=== PATIENT | male | born 1950 | race Caucasian/White ===

== ENCOUNTER 2017-07-08 08:00 | Outpatient (RCR) | payer OTHER, SELFPAY ==
--- NOTE | 2017-06-22 12:59 | PCM.PR.TP ---
General Information - General Information Admitting Diagnosis: Severe COPD. Gold Classification:: GOLD 4: Very Severe - PFT FEV1:: 0.54 FVC:: 1.60 FEV1/FVC%:: 34 - Education/Goals Barriers to Learning: None, Vision Impairment Individual Counseling: Initial Assessment: Dyspnea control techniques at rest, activity, and ADLs, ADL management and pacing, Panic & depression management, Nutrition & weight management, Home exercise plan & guidelines Patient Goals: Breathe better: Initial Assessment, Increase endurance/stamina: Initial Assessment, Return to recreation/hobby: Initial Assessment, Control panic/anxiety: Initial Assessment, Improve diet and nutrition: Initial Assessment, Symptom management: Initial Assessment, Take medications correctly: Initial Assessment, Improve weight: Initial Assessment Exercise - Initial Assessment - Visit Date of Eval: 06/22/17 - Problem/Goals Problems: Deconditioning, No regular exercise, Knowledge deficit exercise guidelines, Knowledge deficit exercise safety - Exercise Prescription Mode:: Treadmill, Rower, Airdyne, NuStep, Arm Ergometer Frequency (x/week): 3 Duration:: 30 MET LEVEL:: 2 HR (bpm):: 114 - 108-114 Exercise Progression: as tolerated per protocol. - Plan Plan and Plan to Review:: Benefits of exercise, Core components of exercise, How to measure dyspnea level, How to monitor dyspnea level, Exercise intensity, Exercise safety guideline, Home exercise guidelines, [place]: 3-4/-13 Disease Management - Initial - Problems/Goals-Hypoxemia Hypoxemia Problems:: Hypoxemia Hypoxemia Goals:: Hypoxemia managed, Port system, Using O2 as Rx's safely - Problems/Goals-Medications Medication Goals: Adherence to prescribed medications, Correct technique/timing & care of MDI, DPI, nebulizer, and spacer. - Problems/Goals-Bronchial Hygiene Bronchial Hygiene Problems:: Ineffective secretion clearance, Respiratory infection Prevention/Management Bronchial Hygiene Goals:: Pt demonstrates effective cough, effective secretion clearance., Pt describes signs and symptoms of infection. - Initial Assessment SpO2:: 96 DME:: [facility] [place] Does pt report taking home meds as prescribed?: Yes Medications: Yes MDI, No Spacer Patient Reports:: Prod cough with infection Psychosocial - Initial Assess - Problems/Goals Problems: Impaired Q.O.L. Psychosocial Goals: Improved Q.O.L. - Psychosocial Test Depression:: Anxiety, Impaired QOL Referred to MD for counseling:: No - Plan Reviewed screening results: No Instructions given regarding:: Benefits of exercise, Relaxation techniques, Training in coping strategies Tobacco - Initial Assessment - Program Goals Tobacco Program Goals: Complete smoking cessation. Attend education classes. Improve Knowledge Test score - Stage of Change Stages of Change:: Action - Learning Barriers Learning Barriers: Vision, Ready to Learn - Family Support Do you have family support?: Yes - Tobacco Use Tobacco Use: Non-smoker How long ago did you quit using tobacco products?: Greater than or equal to 6 months ago Do you use smokeless tobacco?: No - Intervention Smoking Cessation Referral:: No Individual Education/Counseling:: No Education Schedule Given:: Yes - Education Gave Education Materials For:: Tobacco Triggers, Pulmonary Disease, Risk Factors, Breathing Techniques, Medical Compliance, Pulmonary A&P, Exacerbation Signs & Symptoms, Stress & Relaxation Nutrition/Wt Mgmt - Initial - Problems/Goals Problems: Overweight Goals: BMI 21-25, Wt Loss 1-2 lbs per week - Weight Management Knowledge Deficit Management of:: Overweight, Weight control w/Prednisone Admit Height:: 5 ft 9 in Admit Weight:: 100.891 kg Admit BMI:: 32.8 - Diabetes Diabetes:: No Insulin: No Do you monitor your blood sugar at home?: No - Intervention Referral to dietitian:: Yes - Patient could benefit from a Structured Weight Loss program. Referral to Diabetic Clinic:: No Will attend diet classes:: Yes - Plan Nutrition Plan: Yes Nutrition education class:, Yes Weight control education class:, Yes Education re: Need for ongoing weight monitoring, Yes Physical activity log: Patient Health Questionnaire Initial Assessment 1. Little interest or pleasure in doing things: Several days 2. Feeling down, depressed, or hopeless: Several days 3. Trouble falling or staying asleep, or sleeping too much: More than half the days 4. Feeling tired or having little energy: More than half the days 5. Poor appetite or overeating: More than half the days 6. Feeling bad about yourself -- or that you are a failure or have let yourself or your family down: Several days 7. Trouble concentrating on things, such as reading the newspaper or watching television: Several days 8. Moving or speaking so slowly that other people could have noticed. Or the opposite - being so fidgety or restless that you have been moving around a lot more than usual: Not at all 9. Thoughts that you would be better off , or of hurting yourself in some way: Not at all How difficult have these problems made it for you to do your work, take care of things at home, or get along with other people?: Very difficult Total Score: 10 COPD Knowledge Test Initial COPD is a lung disease that:: Makes it hard to breathe & gets worse over time In the [place] the term COPD describes 2 main lung conditions:: Emphysema & chronic bronchitis The most common lung irritant that causes COPD is:: Cigarette smoke Common signs and symptoms of COPD include:: An ongoing cough/cough that produces a large amount of mucus, & SOB If you have COPD, what steps can you take?: All of the above Swelling of the ankles is common in COPD:: True Fatigue [tiredness] is common in COPD:: True Wheezing is common in COPD:: True Crushing chest pain is common in COPD:: False Rapid weight loss is common in COPD:: False Breathlessness is a normal response to exercise: False Exercise should be avoided if it makes you short of breath: False All bronchodilators act within 10 minutes: True A spacer device increases the medication to the lungs: False Annual flu vaccine is recommended for pts w/lung disease: True COPD Knowledge Test Total Score:: 11 COPD Assessment Test [CAT] - Questions Never cough = 0, Cough all the time = 5: 2 No phlegm = 0, Chest full of phlegm = 5: 4 No chest tightness = 0, Chest very tight = 5: 3 No breathless w/exertion = 0, Very breathless w/exertion = 5: 5 No limitations w/activity = 0, Very limited w/activity = 5: 5 Confident leaving home = 0, Not at all confident = 5: 3 Sleep soundly = 0, Don't sleep soundly = 5: 1 Lots of energy = 0, No energy at all = 5: 4 Total CAT score:: 27 Self-Efficacy Initial Assessment We would like to know how confident you are in doing certain activities. Please select your confidence level for:: Select your confidence level for the following using the scale 1-10 where 1 is not at all confident and 10 is totally confident. Your score is the average of all 6 responses. Fatigue: How confident are you that you can keep the fatigue caused by your disease from interfering with the things you want to do? Select Number: 4 Physical Discomfort or Pain: How confident are you that you can keep the physical discomfort or pain of your disease from interfering with the things you want to do? Select Number: 2 Emotional Distress: How confident are you that you can keep the emotional distress caused by your disease from interfering with the things you want to do? Select Number: 5 Other Symptoms or Health Problems: How confident are you that you can keep other symptoms or health problems from interfering with the things you want to do? Select Number: 4 Different Tasks and Activities: How confident are you that you can do the different tasks and activities needed to manage your health condition so as to reduce your need to see a doctor? Select Number: 4 Medication: How confident are you that you can do things other than just taking medication to reduce how much your illness affects your everyday life? Select Number: 3 Total Score:: 3 Nutrition Survey - Nutrition Survey Instructions Scoring Instructions: Scoring is as follows: Yes = 1 points. No = 0 point. Patient score that is >/=12 is considered to be at potential nutritional risk and could benefit from a referral to a registered dietitian. - Nutrition Survey Initial Have you lost >10 lbs over the past 2 months without trying?: No Are you following a special diet at home for diabetes, low fat, or low salt?: No Are you interested in meeting with a dietitian for help understanding your diet?: Yes Do you eat less than 3 meals a day?: Yes Do you eat fatty meats (hicks, sausage, ribs, etc), fried foods, desserts, large amounts of salad dressings, margarine, butter, or cheese most days?: Yes Do you have food allergies? [Enter types in comment field]: No Do you eat in restaurants more than 3 times a week?: No Do you season food with salt, seasoning salt, or garlic salt?: No Do you used canned, boxed, frozen meals, or soups, seasoning packets?: No Total Score:: 3
--- NOTE | 2017-06-22 13:00 | PCM.PR.HP ---
History of Present Illness Arrival date:: 06/22/17 Arrival time:: 13:05 Date of Evaluation: 06/22/17 Referring Physician: Dr. Chandan Carson Primary Diagnosis: COPD Stage IV very severe History of Present Illness: This is a 66 year old male patient who presents to pulmonary rehab today under the care of Dr. Carson. The patient is being treated for his OS, chronic hypoxic respiratory failure and very severe COPD. mMRC Breathless Scale: When is the patient short of breath? Y/N Grade: Description of Breathlessness: 0 I only get breathless with strenuous exercise. 1 I get short of breath when hurrying on level ground or walking up a slight hill. 2 On level ground, I walk slower than people of the same age because of breathless, or have to stop for breath when walking at my own pace. 3 I stop for breath after walking 100 yards or after a few minutes on level ground. 4 I am too breathless to leave the house or I am breathless when dressing. Respiratory Problems: Yes: Wheezing, Able to Speak in Full Sentences, Dyspnea with Activity - Secretions Normal Color:: pale yellow Thick:: Yes Amount/Day:: 1 TSP Cough:: Yes AM: Yes Sleep Disorder Evaluation: EPWORTH SLEEPINESS SCALE 0 = NO chance of dozing 2 = MODERATE chance of dozing 1 = SLIGHT chance of dozing 3 = HIGH chance of dozing : SITUATION: CHANCE OF DOZING: Sitting and Reading Watching TV Sitting inactive in a public place (i.e. Movies) As a passenger in a car for an hour without a break Lying down to rest in the afternoon when permitted Sitting and talking to someone Sitting quietly after lunch without alcohol In a car, while stopped for a few minutes in traffic Total Total Equals: 1-6 = Adequate Sleep 7-8 = Average > 9 = Sleep Study/Consult Indicated Past Medical History Past Medical History: Arthitis - spinal stenosis, Heart Disease - CAD, Hypoxia - chronic hypoxic respiratory failure with MYLES score of 4., Pulmonary Hypertension, Sleep Apnea - Obstructive sleep apnea, - - Acute Bronchitis, dyspnea on exertion, hypersomnia, nonrheumatic tricuspid insufficiency, pulmonary hypertension, spinal stenosis, sprain and strain of lumbosacral joint/ligament, tobacco abuse Psychiatric History: no pertinent psych hx Surgical History: rotator cuff repair, - - back surgery to repair crushed disc in lower lumar region Family History: Heart Disease: Paternal - father heart disease age 77 Additional Family History: Mother age 92 still alive. - Social History Marital Status: Assistive Devices:: none Interest/Hobbies:: fishing, about anything outdoors, gardening, mowing etc. Transportation Needs:: own Alcohol:: No Drugs:: No Employment:: Retired Smoking Status: Former smoker Quit Smoking Since: 2015 Packs per day: 2 Years Smoked: 25 - Living Arrangement Patient lives with other person(s) in the home:: AROUND THE CLOCK - Current/ Previous Services [facility] Home Health:: No Other Home Health:: No [facility] Cardiac Rehab:: No Life (Palliative) Care Services:: No Tobacco Use & Smoking Cessation:: No Pulmonary Rehab:: No Social History - Smoking History Smoking Status: Former smoker Years Smokin Packs Smoked per Day: 2 Hx Smoking Cessation Date: 2015 Hx Tobacco Use: No Hx Smoking Exposure: No - Alcohol Use Alcohol Usage: No - Substance Abuse Hx Substance Use: No - Occupation Occupation (List type of work in comments):: Retired - Hobbies, Recreation, Social Activities Hobbies: Farm, Other Recreational Activities: I am able to engage in a few activities Medications & Vaccination Info Home Medications: Ambulatory Orders Albuterol Inhaler [Ventolin Hfa] 2 puff INHALATION Q6H PRN PRN 05/16/16 Aspirin [Aspirin, Baby] 81 mg PO DAILY@0800 tab.chew 05/24/16 Ipratropium/Albuterol Sulfate [Duoneb] 3 ml INHALATION Q6H PRN PRN 09/05/16 albuterol sulfate 2.5 mg/3 mL (0.083 %) solution for nebulization 2.5 mg INHALATION BID ml 05/14/17 azithromycin 250 mg tablet 250 mg PO QDAY #6 tab 05/14/17 furosemide 40 mg tablet 40 mg PO ONCE #30 tab 05/14/17 glycopyrrolate 9 mcg-formoterol 4.8 mcg HFA aerosol inhaler 2 puff INHALATION BID 05/14/17 guaifenesin ER 600 mg tablet, extended release 12 hr 600 mg PO Q12H PRN 05/14/17 mometasone 220 mcg (120 doses) breath activated powder inhaler 2 inh INHALATION BID ea 05/14/17 prednisone 10 mg tablet 10 mg PO QDAY #30 tab 05/14/17 tamsulosin 0.4 mg capsule 0.4 mg PO QDAY 05/14/17 Do you use a peak flow meter at home?: No Do you use a spacer device with your inhalers?: No Number of hospital visits in the last year?: 0 Number of emergency room visits in the last year?: 0 Do you see your physician on a regular schedule?: Yes How often?: 4 months Has adequate access & meets healthcare needs?: Yes - Drug Regimen Review Indication of potential clinical significant med issues (drug reactions, ineffective therapy, side effects, interactions, duplicate therapy, omissions, dose errors, or non-compliance)?: No problems found during review Was a physician or the physican designee contacted within one calendar day to resolve clinically significant medication issues, including reconcilitation?: No Review of Systems Constitutional: Denies: Chills, Fever, Weight Change HEENT: Reports: Sinus Drainage, Visual Changes - wears glasses daily for vision, lately eyes have been itchy.. Denies: Head Aches, Sinus Congestion Cardiovascular: Denies: Chest Pain, Palpitations Respiratory: Reports: Shortness of breath at rest, Shortness of breath upon exertion, Wheezing. 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: Yes Living Will: Yes Advance Directives Information Provided: No Advance Directives on File: No DNR Order?:: No Coping/Social Support/Other - Abuse and Neglect Do you feel safe in your surroundings?:: YES Are there sign/symptoms of abuse?: No Has anyone physically or mentally abused you?: No Has anyone threatened to harm you in any way?: No Been asked to sign a document that you don't understand?: No - Exacerbation History Number of Exacerbations in a year:: 1 - last hsopitalization May 2016 due to acute hypoxic respiratory failure Recent exposure to illness?: No Known carrier?: No Antibiotic Taken:: Yes I know I have an infection when:: Yes. - Nutrition Risk Factor Are you on a special diet?: No Diff. chewing/swallowing:: No Have you had a change in your weight?: Yes Amount gained:: 50 in 13 mo. Physical Exam - Vital Signs Temperature: 98.7 F Pulse Rate: 79 Respiratory Rate: 18 Pulse Ox at rest: 96 Blood Pressure: 132/76 Nailbeds:: PINK Height: 5 ft 9 in Weight:: 100.698 kg Weight Source: Standing Scale Body Mass Index (BMI): 32.8 - Physical Exam General: Alert, Oriented x3, Cooperative Neck: Supple, No JVD, Negative Carotid Bruits, Negative Hepatojugular Reflux Lungs: Clear to auscultation, Normal air movement Cardiovascular: Regular rate, Regular Rhythm, No murmurs Extremities: No clubbing, No cyanosis, No edema, Capillary Refill Less than 3 Seconds Musculoskeletal: No Tenderness to Palpation of Joints or Extremities Psych/Mental Status: Normal Affect, Appropriate - Pain Is Patient Pain Free?: Yes Pain Location: none - Hearing/Speech/Vision/Spiritual Cultural/Roman Catholic Needs that may affect Treatment Plan: No Do you have any Spiritual/Emotional needs of which our Health Service Worker Ministry could be of assistance?: No Health Service Worker to contact Place of Gnosticism?: No Primary Language: Luxembourger Preferred Language: Luxembour[place] Right Hearing Abillity: Normal Visual Difficulty: Near Sighted, Far Sighted Comments: wears glasses for corrective vision. - Motivation to Participate On a scale of 1 to 10, how prepared are you to commit to attending pulmonary rehabilitation?: 10 What do you see as barriers to successfully being able to complete the program?: inability to achieve goals What do you see as the benefits of succesfully completing the program? In other words, what do you hope to get out of participating in the program?: increased strength and endurance Are there issues you are dealing with that will interfere with completing the program?: none Do you have a spouse or signficant other, family or friends who will help support you to complete the program?: excellent Diagnostic Data Review - Lab Results Hematology/Chemistry: none available - 6 Minute Walk Test 6 Minute Walk Test: See patient's EHR - Pulmonary Function Test FEV1:: 17 - 27% PREDICTED FVC:: 37 - 68% PREDICTED FEV1/FVC%:: 30 Gold Classification: Gold class IV(very severe COPD)with FEV1/FVC <70, FEV1 <30% predicted Functioning ADL/IADL - Functional Capacity ADL/IADL GROOMING: Current ability to tend safely to personal hygiene needs (i.e., washing face/hands, hair care, shaving or make up, teeth or denture care, fingernail care).: Able to groom self unaided, w/ or w/o the use of assistive devices. Current ABILITY TO DRESS UPPER BODY safely (with or w/out dressing aids) including undergarments, pullovers, front-opening shirts & blouses, managing zippers, buttons, & snaps:: Gets clothes out, puts on, and removes from upper body w/o assist. Current ABILITY TO DRESS LOWER BODY safely (with or w/out dressing aids) including undergarments, slacks, socks or nylons, shoes:: Able to obtain, put on, & remove clothing and shoes w/out assistance. Bathing: Current ability to wash entire body safely. EXCLUDES grooming (washing face, washing hands and shampooing hair): Bathes self in shower/tub independently, incl getting in & out TOILET TRANSFERRING: Current ability to get to & from the toilet/BSC safely and transfer on & off toilet/commode.: Gets to & from toilet, transfers independently w/ or w/o a device. TOILETING HYGIENE: Current ability to maintain perineal hygiene safely, adjust clothes and/or incontinence pads before & after using toilet, commode, bedpan, urinal. If managing ostomy, includes cleaning: Manages toileting hygiene & clothing management w/out assist TRANSFERRING: Current ability to move safely from bed to chair, or ability to turn and position self in bed if patient is bedfast.: Able to independently transfer. AMBULATION/LOCOMOTION: Current ability to walk safely, once in a standing position, or use wheelchair, once in a seated position, on a variety of surfaces.: Able to IND walk on even/uneven surface&use stairs with or w/o railing FEEDING or EATING: Current ability to feed self meals and snacks safely. NOTE: This refers only to the process of eating, chewing and swallowing, not preparing the food to be eaten.: Able to independently fee ABILITY TO PLAN AND PREPARE MEALS: (e.g., cereal, sandwich) or reheat delivered meals safely.: IND prepare light meals/reheat delvrd meals/Or can but hasn't done so. ABILITY TO USE TELEPHONE: Current ability to answer the phone safely, including dialing numbers, and effectively using the telephone to communicate.: Able to dial numbers and answer calls appropriately and as desired. - Pt Functioning Prior to Problem Self-Care (e.g.,grooming, dressing, & bathing): INDEPENDENT Ambulation: INDEPENDENT Transfer: INDEPENDENT Household tasks (e.g., light meal prep, laundry, shopping): INDEPENDENT
--- NOTE | 2017-06-22 13:10 | PR.HP_ITS ---
History of Present Illness Arrival date:: 06/22/17 Arrival time:: 13:05 Date of Evaluation: 06/22/17 Referring Physician: Dr. Chandan Carson Primary Diagnosis: COPD Stage IV very severe History of Present Illness: This is a 66 year old male patient who presents to pulmonary rehab today under the care of Dr. Carson. The patient is being treated for his OS, chronic hypoxic respiratory failure and very severe COPD. mMRC Breathless Scale: When is the patient short of breath? Y/N Grade: Description of Breathlessness: 0 I only get breathless with strenuous exercise. 1 I get short of breath when hurrying on level ground or walking up a slight hill. 2 On level ground, I walk slower than people of the same age because of breathless, or have to stop for breath when walking at my own pace. 3 I stop for breath after walking 100 yards or after a few minutes on level ground. 4 I am too breathless to leave the house or I am breathless when dressing. Respiratory Problems: Yes: Wheezing, Able to Speak in Full Sentences, Dyspnea with Activity - Secretions Normal Color:: pale yellow Thick:: Yes Amount/Day:: 1 TSP Cough:: Yes AM: Yes Sleep Disorder Evaluation: EPWORTH SLEEPINESS SCALE 0 = NO chance of dozing 2 = MODERATE chance of dozing 1 = SLIGHT chance of dozing 3 = HIGH chance of dozing : SITUATION: CHANCE OF DOZING: Sitting and Reading Watching TV Sitting inactive in a public place (i.e. Movies) As a passenger in a car for an hour without a break Lying down to rest in the afternoon when permitted Sitting and talking to someone Sitting quietly after lunch without alcohol In a car, while stopped for a few minutes in traffic Total Total Equals: 1-6 = Adequate Sleep 7-8 = Average > 9 = Sleep Study/Consult Indicated Past Medical History Past Medical History: Arthitis - spinal stenosis, Heart Disease - CAD, Hypoxia - chronic hypoxic respiratory failure with MYLES score of 4., Pulmonary Hypertension, Sleep Apnea - Obstructive sleep apnea, - - Acute Bronchitis, dyspnea on exertion, hypersomnia, nonrheumatic tricuspid insufficiency, pulmonary hypertension, spinal stenosis, sprain and strain of lumbosacral joint/ ligament, tobacco abuse Psychiatric History: no pertinent psych hx Surgical History: rotator cuff repair, - - back surgery to repair crushed disc in lower lumar region Family History: Heart Disease: Paternal - father heart disease age 77 Additional Family History: Mother age 92 still alive. - Social History Marital Status: Assistive Devices:: none Interest/Hobbies:: fishing, about anything outdoors, gardening, mowing etc. Transportation Needs:: own Alcohol:: No Drugs:: No Employment:: Retired Smoking Status: Former smoker Quit Smoking Since: 2015 Packs per day: 2 Years Smoked: 25 - Living Arrangement Patient lives with other person(s) in the home:: AROUND THE CLOCK - Current/ Previous Services [facility] Health:: No Other Home Health:: No [facility] Cardiac Rehab:: No Life (Palliative) Care Services:: No Tobacco Use & Smoking Cessation:: No Pulmonary Rehab:: No Social History - Smoking History Smoking Status: Former smoker Years Smokin Packs Smoked per Day: 2 Hx Smoking Cessation Date: 2015 Hx Tobacco Use: No Hx Smoking Exposure: No - Alcohol Use Alcohol Usage: No - Substance Abuse Hx Substance Use: No - Occupation Occupation (List type of work in comments):: Retired - Hobbies, Recreation, Social Activities Hobbies: Farm, Other Recreational Activities: I am able to engage in a few activities Medications & Vaccination Info Home Medications: Ambulatory Orders Albuterol Inhaler [Ventolin Hfa] 2 puff INHALATION Q6H PRN PRN 05/16/16 Aspirin [Aspirin, Baby] 81 mg PO DAILY@0800 tab.chew 05/24/16 Ipratropium/Albuterol Sulfate [Duoneb] 3 ml INHALATION Q6H PRN PRN 09/05/16 albuterol sulfate 2.5 mg/3 mL (0.083 %) solution for nebulization 2.5 mg INHALATION BID ml 05/14/17 azithromycin 250 mg tablet 250 mg PO QDAY #6 tab 05/14/17 furosemide 40 mg tablet 40 mg PO ONCE #30 tab 05/14/17 glycopyrrolate 9 mcg-formoterol 4.8 mcg HFA aerosol inhaler 2 puff INHALATION BID 05/14/17 guaifenesin ER 600 mg tablet, extended release 12 hr 600 mg PO Q12H PRN mometasone 220 mcg (120 doses) breath activated powder inhaler 2 inh INHALATION BID ea 05/14/17 prednisone 10 mg tablet 10 mg PO QDAY #30 tab 05/14/17 tamsulosin 0.4 mg capsule 0.4 mg PO QDAY 05/14/17 Do you use a peak flow meter at home?: No Do you use a spacer device with your inhalers?: No Number of hospital visits in the last year?: 0 Number of emergency room visits in the last year?: 0 Do you see your physician on a regular schedule?: Yes How often?: 4 months Has adequate access & meets healthcare needs?: Yes - Drug Regimen Review Indication of potential clinical significant med issues (drug reactions, ineffective therapy, side effects, interactions, duplicate therapy, omissions, dose errors, or non-compliance)?: No problems found during review Was a physician or the physican designee contacted within one calendar day to resolve clinically significant medication issues, including reconcilitation?: No Review of Systems Constitutional: Denies: Chills, Fever, Weight Change HEENT: Reports: Sinus Drainage, Visual Changes - wears glasses daily for vision , lately eyes have been itchy.. Denies: Head Aches, Sinus Congestion Cardiovascular: Denies: Chest Pain, Palpitations Respiratory: Reports: Shortness of breath at rest, Shortness of breath upon exertion, Wheezing. 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 Farm Equipment Engineer: Yes Living Will: Yes Advance Directives Information Provided: No Advance Directives on File: No DNR Order?:: No Coping/Social Support/Other - Abuse and Neglect Do you feel safe in your surroundings?:: YES Are there sign/symptoms of abuse?: No Has anyone physically or mentally abused you?: No Has anyone threatened to harm you in any way?: No Been asked to sign a document that you don't understand?: No - Exacerbation History Number of Exacerbations in a year:: 1 - last hsopitalization May 2016 due to acute hypoxic respiratory failure Recent exposure to illness?: No Known carrier?: No Antibiotic Taken:: Yes I know I have an infection when:: Yes. - Nutrition Risk Factor Are you on a special diet?: No Diff. chewing/swallowing:: No Have you had a change in your weight?: Yes Amount gained:: 50 in 13 mo. Physical Exam - Vital Signs Temperature: 98.7 F Pulse Rate: 79 Respiratory Rate: 18 Pulse Ox at rest: 96 Blood Pressure: 132/76 Nailbeds:: PINK Height: 5 ft 9 in Weight:: 100.698 kg Weight Source: Standing Scale Body Mass Index (BMI): 32.8 - Physical Exam General: Alert, Oriented x3, Cooperative Neck: Supple, No JVD, Negative Carotid Bruits, Negative Hepatojugular Reflux Lungs: Clear to auscultation, Normal air movement Cardiovascular: Regular rate, Regular Rhythm, No murmurs Extremities: No clubbing, No cyanosis, No edema, Capillary Refill Less than 3 Seconds Musculoskeletal: No Tenderness to Palpation of Joints or Extremities Psych/Mental Status: Normal Affect, Appropriate - Pain Is Patient Pain Free?: Yes Pain Location: none - Hearing/Speech/Vision/Spiritual Cultural/Taoism Needs that may affect Treatment Plan: No Do you have any Spiritual/Emotional needs of which our [employer] [facility] could be of assistance?: No Die Sinking Machine Operator to contact Place of Buddhist?: No Primary Language: Swiss Preferred Language: Swiss Right Hearing Abillity: Normal Visual Difficulty: Near Sighted, Far Sighted Comments: wears glasses for corrective vision. - Motivation to Participate On a scale of 1 to 10, how prepared are you to commit to attending pulmonary rehabilitation?: 10 What do you see as barriers to successfully being able to complete the program? : inability to achieve goals What do you see as the benefits of succesfully completing the program? In other words, what do you hope to get out of participating in the program?: increased strength and endurance Are there issues you are dealing with that will interfere with completing the program?: none Do you have a spouse or signficant other, family or friends who will help support you to complete the program?: excellent Diagnostic Data Review - Lab Results Hematology/Chemistry: none available - 6 Minute Walk Test 6 Minute Walk Test: See patient's EHR - Pulmonary Function Test FEV1:: 17 - 27% PREDICTED FVC:: 37 - 68% PREDICTED FEV1/FVC%:: 30 Gold Classification: Gold class IV(very severe COPD)with FEV1/FVC <70, FEV1 <30 % predicted Functioning ADL/IADL - Functional Capacity ADL/IADL GROOMING: Current ability to tend safely to personal hygiene needs (i.e., washing face/hands, hair care, shaving or make up, teeth or denture care, fingernail care).: Able to groom self unaided, w/ or w/o the use of assistive devices. Current ABILITY TO DRESS UPPER BODY safely (with or w/out dressing aids) including undergarments, pullovers, front-opening shirts & blouses, managing zippers, buttons, & snaps:: Gets clothes out, puts on, and removes from upper body w/o assist. Current ABILITY TO DRESS LOWER BODY safely (with or w/out dressing aids) including undergarments, slacks, socks or nylons, shoes:: Able to obtain, put on , & remove clothing and shoes w/out assistance. Bathing: Current ability to wash entire body safely. EXCLUDES grooming (washing face, washing hands and shampooing hair): Bathes self in shower/tub independently, incl getting in & out TOILET TRANSFERRING: Current ability to get to & from the toilet/BSC safely and transfer on & off toilet/commode.: Gets to & from toilet, transfers independently w/ or w/o a device. TOILETING HYGIENE: Current ability to maintain perineal hygiene safely, adjust clothes and/or incontinence pads before & after using toilet, commode, bedpan, urinal. If managing ostomy, includes cleaning: Manages toileting hygiene & clothing management w/out assist TRANSFERRING: Current ability to move safely from bed to chair, or ability to turn and position self in bed if patient is bedfast.: Able to independently transfer. AMBULATION/LOCOMOTION: Current ability to walk safely, once in a standing position, or use wheelchair, once in a seated position, on a variety of surfaces.: Able to IND walk on even/uneven surface&use stairs with or w/o railing FEEDING or EATING: Current ability to feed self meals and snacks safely. NOTE: This refers only to the process of eating, chewing and swallowing, not preparing the food to be eaten.: Able to independently fee ABILITY TO PLAN AND PREPARE MEALS: (e.g., cereal, sandwich) or reheat delivered meals safely.: IND prepare light meals/reheat delvrd meals/Or can but hasn't done so. ABILITY TO USE TELEPHONE: Current ability to answer the phone safely, including dialing numbers, and effectively using the telephone to communicate.: Able to dial numbers and answer calls appropriately and as desired. - Pt Functioning Prior to Problem Self-Care (e.g.,grooming, dressing, & bathing): INDEPENDENT Ambulation: INDEPENDENT Transfer: INDEPENDENT Household tasks (e.g., light meal prep, laundry, shopping): INDEPENDENT
[2017-06-22 13:39] VITALS: BP 132/76; PULSE 79; RESP 18; TEMP 37.1; O2SAT 96; BMI 32.8
[2017-06-22 14:23] VITALS: O2SAT 96; BMI 32.8
--- NOTE | 2017-06-22 14:24 | PCM.PR.DAT ---
Dates of Coverage Times for Dates Of Coverage; All dates of coverage are for physician supervision/director biomedical engineering for during the times of 08:00 AM through 4:30 PM. Effective Jan 09, 2013 our hours will be changing to 8:00 to 4:30 on Thursday, Thursday and Thursday. First Date of the Month: 06/22/17 Last Date of the Month: 07/08/17
--- NOTE | 2017-07-06 13:21 | PCM.PR.DAT ---
Dates of Coverage Times for Dates Of Coverage; All dates of coverage are for physician supervision/medical transport specialist for during the times of 08:00 AM through 4:30 PM. Effective Jan 09, 2013 our hours will be changing to 8:00 to 4:30 on Thursday, Thursday and Thursday. First Date of the Month: 07/09/17 Last Date of the Month: 08/07/17
--- NOTE | 2017-07-06 13:22 | PCM.PR.TP ---
Exercise - 30-Day Assessment - Exercise Prescription Mode:: Treadmill, Airdyne, NuStep Frequency (x/week): 3 Duration:: 30 Aerobic Exercise [30-60 min 3-7x/week]:: Progressing Target heart rate: 105 - THRR 108-114 [place]den MET Level:: 2 - Home Exercise Home Exercise:: No Disease Management - 30-Day - Hypoxemia Reassessment: Demonstrates knowledge of O2 Rx with exercise, Using O2 as prescribed, Has home O2 as prescribed, Uses port O2 as prescribed - Medications Medication list reviewed:: Yes Taking medications 100% of the time:: Approximately 75% of the time Psychosocial - 30-Day - Assessment Reassessment: Practicing interventions Tobacco - 30-Day Assessment - Program Goals Tobacco Program Goals: Complete smoking cessation. Attend education classes. Improve Knowledge Test score - Stage of Change Stages of Change:: Action - Learning Barriers Learning Barriers: Participates in education - Family Support Do you have family support?: Yes - Tobacco Use Tobacco Use: Non-smoker Do you use smokeless tobacco?: No - Intervention Smoking Cessation Referral:: No Individual Education/Counseling:: No Education Schedule Given:: Yes - Education Gave Education Materials For:: Pulmonary Disease, Risk Factors, Breathing Techniques, Medical Compliance, Pulmonary A&P, Exacerbation Signs & Symptoms, Stress & Relaxation Nutrition/Wt Mgmt - 30-Day - Weight Management Weight:: 98.203 kg Weight Goals Progress:: Not progressing Patient Health Questionnaire 30-Day Re-eval Assessment 1. Little interest or pleasure in doing things: Not at all 2. Feeling down, depressed, or hopeless: Not at all 3. Trouble falling or staying asleep, or sleeping too much: Several days 4. Feeling tired or having little energy: Several days 5. Poor appetite or overeating: Several days 6. Feeling bad about yourself -- or that you are a failure or have let yourself or your family down: Not at all 7. Trouble concentrating on things, such as reading the newspaper or watching television: Not at all 8. Moving or speaking so slowly that other people could have noticed. Or the opposite - being so fidgety or restless that you have been moving around a lot more than usual: Not at all 9. Thoughts that you would be better off , or of hurting yourself in some way: Not at all How difficult have these problems made it for you to do your work, take care of things at home, or get along with other people?: Somewhat difficult Total Score: 3 COPD Assessment Test [CAT] - Questions Never cough = 0, Cough all the time = 5: 2 No phlegm = 0, Chest full of phlegm = 5: 4 No chest tightness = 0, Chest very tight = 5: 3 No breathless w/exertion = 0, Very breathless w/exertion = 5: 5 No limitations w/activity = 0, Very limited w/activity = 5: 5 Confident leaving home = 0, Not at all confident = 5: 3 Sleep soundly = 0, Don't sleep soundly = 5: 1 Lots of energy = 0, No energy at all = 5: 3 Total CAT score:: 26 Self-Efficacy 30-Day Re-eval Assessment We would like to know how confident you are in doing certain activities. Please select your confidence level for:: Select your confidence level for the following using the scale 1-10 where 1 is not at all confident and 10 is totally confident. Your score is the average of all 6 responses. Fatigue: How confident are you that you can keep the fatigue caused by your disease from interfering with the things you want to do? Select Number: 5 Physical Discomfort or Pain: How confident are you that you can keep the physical discomfort or pain of your disease from interfering with the things you want to do? Select Number: 4 Emotional Distress: How confident are you that you can keep the emotional distress caused by your disease from interfering with the things you want to do? Select Number: 5 Other Symptoms or Health Problems: How confident are you that you can keep other symptoms or health problems from interfering with the things you want to do? Select Number: 4 Different Tasks and Activities: How confident are you that you can do the different tasks and activities needed to manage your health condition so as to reduce your need to see a doctor? Select Number: 4 Medication: How confident are you that you can do things other than just taking medication to reduce how much your illness affects your everyday life? Select Number: 5 Total Score:: 4
== END 2017-07-08 23:59 ==
LOC: PR 08:00
PROVIDERS: Visit Provider Internal Medicine Critical Care Medicine
DX: J44.9 Chronic obstructive pulmonary disease, unspecified (principal)
CPT/HCPCS: 97150; G0424

== ENCOUNTER → 2017-07-24 10:32 | Outpatient (CLI) | payer OTHER, SELFPAY ==
[2017-07-24 11:47] LABS: Absolute Lymphocyte Count 0.71 X10^3/ul (0.83-4.51); Absolute Neutrophil Count 6.4 X10^3/uL (2.0-7.7); Basophil# 0.02 X10^3/uL; Basophil% 0.3 % (0-1); Eosinophil# 0.32 X10^3/uL; Eosinophils% 4.1 % (0-5); Hematocrit 39.9 % (40-54); Hemoglobin 12.6 g/dl (13.0-16.5); Lymphocyte # 0.71 X10^3/ul (4.0); Mean Corp Hgb Conc 31.6 g/gl (32-36); Mean Corpuscular Hgb 29.2 pg (27.0-32.0); Mean Corpuscular Volume 92.6 fL (80-94); Mean Platelet Vol. 9.7 fl (6.2-12.0); Monocyte# 0.41 X10^3/uL; Monocyte% 5.2 % (0-10); Neutrophil # 6.41 X10^3/uL (2.7-7.7); Neutrophil % 81.3 % (47-70); Platelet Count 180 K/mm3 (150-450); RBC Distribution Width CV 14.2 % (11.6-14.6); RBC Distribution Width SD 46.9 fl (35.1-43.9); Red Blood Count 4.31 M/mm3 (4.6-6.2); White Blood Count 7.9 K/mm3 (4.4-11.0)
[2017-07-24 11:48] LABS: POSITIVE COUNT NO; POSITIVE DIFFERENTIAL NO; POSITIVE MORPHOLOGY NO
[2017-07-24 12:26] LABS: Rheumatoid Factor < 10.0 IU/mL (<15)
[2017-07-30 03:06] LABS: Alternaria alternata <0.10 kU/L (Class 0); Bermuda Grass 0.16 kU/L (Class 0/I); Bluegrass, Kentucky 0.35 kU/L (Class I); D farinae Mite 2.57 kU/L (Class III); D pteronyssinus 2.01 kU/L (Class III); Dog Epithelia 0.49 kU/L (Class I); Elm, American White 0.17 kU/L (Class 0/I); Oak, White 0.33 kU/L (Class I)
[2017-07-30 12:09] LABS: Aspirgillus flavus Negative (Neg:<1:1); Aspirgillus fumigatus Negative (Neg:<1:1); Aspirgillus niger Negative (Neg:<1:1); Cytoplasmic Ab (C-ANCA) <1:20 titer (Neg:<1:20); Immunoglobulin E 986 IU/mL (0-100)
[2017-07-30 12:40] LABS: Mouse Urine <0.10 kU/L (Class 0)
[2017-07-30 15:00] LABS: CCP IgG Antibodies 8 units (0-19); Perinuclear Ab (P-ANCA) <1:20 titer (Neg:<1:20)
== END ==
PROVIDERS: Family Provider Internal Medicine; PCP Internal Medicine; Visit Provider Nurse Practitioner Acute Care
DX: R06.09 Other forms of dyspnea (principal)
CPT/HCPCS: 36415; 82785; 85025; 86003; 86200; 86256; 86431; 86606

== ENCOUNTER 2017-07-31 09:30 | Outpatient (RCR) | payer OTHER, SELFPAY ==
[2017-07-09 00:10] VITALS: PULSE 79; RESP 18; TEMP 37.1; O2SAT 96
--- NOTE | 2017-08-03 13:55 | PR.DATECOV_ITS ---
Dates of Coverage Times for Dates Of Coverage; All dates of coverage are for physician supervision /medical anthropology director for during the times of 08:00 AM through 4:30 PM. Effective Jan 09, 2013 our hours will be changing to 8:00 to 4:30 on Thursday, Thursday and Thursday. First Date of the Month: 08/09/17 Last Date of the Month: 09/07/17
--- NOTE | 2017-08-03 14:03 | PR.ITP_ITS ---
Exercise - Final Assessment - Exercise Prescription Mode:: Treadmill, Airdyne, NuStep, Arm Ergometer Frequency (x/week): 3 Duration:: 30 Aerobic Exercise [30-60 min 3-7x/week]:: Not progressing Further followup [see D/C Summary]:: No Target heart rate: 114 - 108-114 max HR 112 [place] MET Level:: 3 - Home Exercise Home Exercise:: No Disease Management - Final - Hypoxemia Final Assessment: Demonstrates knowledge of O2 Rx at rest, Demonstrates knowledge of O2 Rx with exercise, Using O2 as prescribed, Has home O2 as prescribed, Uses port O2 as prescribed - Medications Medication list reviewed:: Yes Taking medications 100% of the time:: Approximately 75% of the time Medication reassessment: Yes Pt demonstrates correct technique timing for MDI, Yes Pt demonstrates correct technique timing for NEB, Yes Pt demonstrates correct technique timing for spacer - returned demonstration - Bronchial Hygiene Bronchial Hygiene Plan: Yes Pt demonstrates correctly for effective cough, Yes Pt demo correct for device - return use acapella, Yes Pt demo correct for hand hygiene, Yes Pt demo correct for verbalize when to call MD Tobacco - Final Assessment - Program Goals Tobacco Program Goals: Complete smoking cessation. Attend education classes. Improve Knowledge Test score - Stage of Change Stages of Change:: Action - Learning Barriers Learning Barriers: Participates in education - Family Support Do you have family support?: Yes - Tobacco Use Tobacco Use: Non-smoker Do you use smokeless tobacco?: No - Intervention Smoking Cessation Referral:: No Individual Education/Counseling:: No Education Schedule Given:: Yes - Education Education Goal Reached?: No - patient cancelled particpation due to twisted ankle Nutrition/Wt Mgmt - Final - Weight Management Weight:: 224 lb - gained 8 pounds Patient Health Questionnaire Discharge Assessment 1. Little interest or pleasure in doing things: Several days 2. Feeling down, depressed, or hopeless: Several days 3. Trouble falling or staying asleep, or sleeping too much: Several days 4. Feeling tired or having little energy: Several days 5. Poor appetite or overeating: Not at all 6. Feeling bad about yourself -- or that you are a failure or have let yourself or your family down: Not at all 7. Trouble concentrating on things, such as reading the newspaper or watching television: Several days 8. Moving or speaking so slowly that other people could have noticed. Or the opposite - being so fidgety or restless that you have been moving around a lot more than usual: Not at all 9. Thoughts that you would be better off , or of hurting yourself in some way: Not at all How difficult have these problems made it for you to do your work, take care of things at home, or get along with other people?: Somewhat difficult Total Score: 5 COPD Knowledge Test Discharge COPD is a lung disease that:: Makes it hard to breathe & gets worse over time In the [place] the term COPD describes 2 main lung conditions:: Emphysema & chronic bronchitis The most common lung irritant that causes COPD is:: Cigarette smoke Common signs and symptoms of COPD include:: An ongoing cough/cough that produces a large amount of mucus, & SOB If you have COPD, what steps can you take?: All of the above Swelling of the ankles is common in COPD:: False Fatigue [tiredness] is common in COPD:: True Wheezing is common in COPD:: True Crushing chest pain is common in COPD:: False Rapid weight loss is common in COPD:: True Breathlessness is a normal response to exercise: True Exercise should be avoided if it makes you short of breath: True All bronchodilators act within 10 minutes: True A spacer device increases the medication to the lungs: True Annual flu vaccine is recommended for pts w/lung disease: True COPD Knowledge Test Total Score:: 12 COPD Assessment Test [CAT] - Questions Never cough = 0, Cough all the time = 5: 4 No phlegm = 0, Chest full of phlegm = 5: 3 No chest tightness = 0, Chest very tight = 5: 4 No breathless w/exertion = 0, Very breathless w/exertion = 5: 3 No limitations w/activity = 0, Very limited w/activity = 5: 4 Confident leaving home = 0, Not at all confident = 5: 3 Sleep soundly = 0, Don't sleep soundly = 5: 4 Lots of energy = 0, No energy at all = 5: 5 Total CAT score:: 30 Self-Efficacy Discharge Assessment We would like to know how confident you are in doing certain activities. Please select your confidence level for:: Select your confidence level for the following using the scale 1-10 where 1 is not at all confident and 10 is totally confident. Your score is the average of all 6 responses. Fatigue: How confident are you that you can keep the fatigue caused by your disease from interfering with the things you want to do? Select Number: 8 Physical Discomfort or Pain: How confident are you that you can keep the physical discomfort or pain of your disease from interfering with the things you want to do? Select Number: 7 Emotional Distress: How confident are you that you can keep the emotional distress caused by your disease from interfering with the things you want to do? Select Number: 8 Other Symptoms or Health Problems: How confident are you that you can keep other symptoms or health problems from interfering with the things you want to do? Select Number: 6 Different Tasks and Activities: How confident are you that you can do the different tasks and activities needed to manage your health condition so as to reduce your need to see a doctor? Select Number: 6 Medication: How confident are you that you can do things other than just taking medication to reduce how much your illness affects your everyday life? Select Number: 8 Total Score:: 7 Nutrition Survey - Nutrition Survey Instructions Scoring Instructions: Scoring is as follows: Yes = 1 points. No = 0 point. Patient score that is >/=12 is considered to be at potential nutritional risk and could benefit from a referral to a registered dietitian. - Nutrition Survey Discharge Have you lost >10 lbs over the past 2 months without trying?: No Are you following a special diet at home for diabetes, low fat, or low salt?: No Are you interested in meeting with a dietitian for help understanding your diet? : No Do you eat less than 3 meals a day?: Yes Do you eat fatty meats (hicks, sausage, ribs, etc), fried foods, desserts, large amounts of salad dressings, margarine, butter, or cheese most days?: Yes Do you have food allergies? [Enter types in comment field]: No Do you eat in restaurants more than 3 times a week?: Yes Do you season food with salt, seasoning salt, or garlic salt?: Yes Do you used canned, boxed, frozen meals, or soups, seasoning packets?: Yes Total Score:: 5
== END 2017-08-03 08:40 | disposition home or self-care (01) ==
LOC: PR 09:30
PROVIDERS: Visit Provider Internal Medicine Critical Care Medicine
DX: J44.9 Chronic obstructive pulmonary disease, unspecified (principal)
CPT/HCPCS: 97150; G0424

== ENCOUNTER → 2017-08-25 07:00 | Outpatient (CLI) | payer OTHER, SELFPAY ==
--- NOTE | 2017-08-25 15:19 | PFTCOMP ---
COMPLETE PULMONARY FUNCTION TEST INTERPRETATION Brief HPI: Patient is a 67 year old male, currently under the care of myself, who presents to [facility] for complete pulmonary function tests secondary to diagnosis of COPD. Respiratory therapist reports good effort and reproducible results. Interpretation: Forced expiration spirometry shows a very severe large airways obstructive ventilatory defect with an FEV1 of 31% predicted. There is a significant bronchodilator response in FVC and FEV1 by ATS criteria. Spirograms are of good quality and plateau slowly, indicating slowly emptying areas of the lungs. The respiratory flow volume loop shows decreased expiratory flow rates at all lung volumes consistent with airway obstruction. Lung volumes by body plethysmography show an elevated total lung capacity at 8.14 L, 132% predicted. FRC and RV are elevated out of proportion. Lung volume measurements are consistent with hyperinflation and air-trapping. Diffusion capacity by carbon monoxide is decreased at 43% predicted. The airway resistance is elevated. Compared to previous pulmonary function tests from 08/26/2016, there has been a significant improvement in FEV1. Impression: Partially reversible very severe large airways obstructive ventilatory defect with a symmetric reduction in diffusing capacity resulting in air trapping with hyperinflation. There has been mild improvement compared to previous study.
== END ==
PROVIDERS: Family Provider Internal Medicine; PCP Internal Medicine; Visit Provider Nurse Practitioner Acute Care
DX: R06.09 Other forms of dyspnea (principal)
CPT/HCPCS: 94060; 94726; 94729

== ENCOUNTER → 2017-09-08 11:58 | Outpatient (CLI) | payer OTHER, SELFPAY | PROVIDERS: Family Provider Internal Medicine; PCP Internal Medicine; Visit Provider Internal Medicine Critical Care Medicine | DX: J44.9 Chronic obstructive pulmonary disease, unspecified (principal) | CPT/HCPCS: 94762 ==

== ENCOUNTER → 2017-11-24 10:56 | Outpatient (CLI) | payer OTHER, SELFPAY ==
--- NOTE | 2017-11-25 09:37 | PFT ---
INTRODUCTION: The patient is a 67-year-old male that presents for pulmonary function testing secondary to a diagnosis of COPD. Respiratory therapy reports good patient effort. Bronchodilators were used during testing. INTERPRETATION: Forced expiration spirometry demonstrates the presence of a very severe large airways obstructive ventilatory defect. There was a significant response to aerosolized bronchodilators noted in both FEV1 and FVC. Spirograms are of good quality and do not plateau indicating slow emptying of the lungs. The respiratory flow volume loop reveals decreased expiratory flow rates at all lung volumes consistent with airways obstruction. Body plethysmography was performed and reveals an elevated TLC and RV to 129 and 247% of predicted, respectively. This would be indicative of underlying hyperinflation and air-trapping. Diffusing capacity by single breath CO is moderately reduced at 48% of predicted. IMPRESSION: These pulmonary function studies demonstrate the presence of a partially reversible very severe large airways obstructive ventilatory defect with associated hyperinflation, air trapping and reduction in diffusing capacity.
--- NOTE | 2017-11-25 09:40 | PFT_ITS ---
INTRODUCTION: The patient is a 67-year-old male that presents for pulmonary function testing secondary to a diagnosis of COPD. Respiratory therapy reports good patient effort. Bronchodilators were used during testing. INTERPRETATION: Forced expiration spirometry demonstrates the presence of a very severe large airways obstructive ventilatory defect. There was a significant response to aerosolized bronchodilators noted in both FEV1 and FVC. Spirograms are of good quality and do not plateau indicating slow emptying of the lungs. The respiratory flow volume loop reveals decreased expiratory flow rates at all lung volumes consistent with airways obstruction. Body plethysmography was performed and reveals an elevated TLC and RV to 129 and 247% of predicted, respectively. This would be indicative of underlying hyperinflation and air- trapping. Diffusing capacity by single breath CO is moderately reduced at 48% of predicted. IMPRESSION: These pulmonary function studies demonstrate the presence of a partially reversible very severe large airways obstructive ventilatory defect with associated hyperinflation, air trapping and reduction in diffusing capacity.
== END ==
PROVIDERS: Family Provider Internal Medicine; PCP Internal Medicine; Visit Provider Nurse Practitioner Family
DX: J44.9 Chronic obstructive pulmonary disease, unspecified (principal)
CPT/HCPCS: 94060; 94726; 94729

== ENCOUNTER → 2017-12-03 14:02 | Outpatient (CLI) | payer OTHER, SELFPAY ==
--- NOTE | 2017-12-03 14:04 | CT_ITS ---
STUDY: LOW DOSE CT LUNG CANCER SCREENING REASON FOR EXAM: Male, 67 years old. 45 pack-year history quit May 2016. RADIATION DOSAGE (If Supplied By Facility): CTDIvol = ( 4.02 ) mGy, DLP = ( 161.05 ) mGycm TECHNIQUE: No contrast was administered. Low dose technique was utilized (average mAS-38 and kVp 120). 1.25 mm axial source images with a slice interval of 1.25-mm were reconstructed in lung windows. 2.5 mm axial source images with a slice interval of 2.5-mm were reconstructed in lung windows. 5.0 mm axial source images with a slice interval of 5.0-mm were reconstructed in soft tissue windows. Nodule measured using lung windows on PACS and/or independent workstation with automated measurement of minimum and maximum diameter. Nodule measurement reported as average diameter rounded to the nearest whole number. Growth is defined as an increase ins size of greater than 1.5 mm. COMPARISON: Chest, September 03, 2016. CT of the chest, May 18, 2016. NODULES: Total lung nodules (excluding granulomas): 0 Emphysema: There are diffuse emphysematous changes of the lungs. There is linear scarring in the lingula and bilateral lower lobes. Endobronchial lesion: Aorta: There is atherosclerotic changes of the thoracic aorta without aneurysm. Coronary arteries: There are coronary artery calcifications. Heart: The heart is normal in size. Pulmonary artery: Normal Mediastinal nodes: There are nonspecific subcentimeter mediastinal lymphadenopathy. Other chest and abdominal findings: There are degenerative changes of the thoracic spine. CT/Low Dose CT Lung Screening IMPRESSION: Lung-RADS category 1 - Continue annual screening with LDCT in 12 months. IMPORTANT NOTES FOR USE: ACR Lung-RADS Version 1.0 Assessment Categories Release Date: September 05, 2013 Category: Coded 0-4 bases on nodule(s) with highest degree of suspicion. Negative screen is defined as categories 1 and 2; a positive screen is defined as categories 3 and 4. Category 3 and 4A nodules that are unchanged on interval CT should be coded as category 2, and individuals returned to screening in 12 months. Category 4X: Category 3 or 4 nodules with additional imaging findings that increase the suspicion of lung cancer, such as spiculation, GGN that doubles in size in 1 year, enlarged lymph notes, etc. Category Modifiers: S (significant finding unrelated to lung cancer) and C (prior history of treated lung cancer) may be added to the 0-4 Lung-RADS Electronically Signed: Omari Buckner DO at 16:59 EDT Tel [phone], Service support ,
== END ==
PROVIDERS: Family Provider Internal Medicine; PCP Internal Medicine; Visit Provider Nurse Practitioner Acute Care
DX: Z87.891 Personal history of nicotine dependence (principal)
CPT/HCPCS: G0297

== ENCOUNTER → 2018-03-11 10:58 | Outpatient (CLI) | payer OTHER, SELFPAY ==
[2018-03-11 11:22] LABS: Absolute Lymphocyte Count 1.13 X10^3/ul (0.83-4.51); Absolute Neutrophil Count 8.9 X10^3/uL (2.0-7.7); Basophil# 0.01 X10^3/uL; Basophil% 0.1 % (0-1); Eosinophil# 0.04 X10^3/uL; Eosinophils% 0.4 % (0-5); Hematocrit 43.9 % (40-54); Hemoglobin 14.6 g/dl (13.0-16.5); Lymphocyte # 1.13 X10^3/ul (4.0); Lymphocyte % 10.6 % (19-41); Mean Corp Hgb Conc 33.3 g/gl (32-36); Mean Corpuscular Hgb 30.7 pg (27.0-32.0); Mean Corpuscular Volume 92.4 fL (80-94); Mean Platelet Vol. 9.3 fl (6.2-12.0); Monocyte# 0.56 X10^3/uL; Monocyte% 5.2 % (0-10); Neutrophil # 8.91 X10^3/uL (2.7-7.7); Neutrophil % 83.2 % (47-70); Platelet Count 184 K/mm3 (150-450); RBC Distribution Width CV 13.9 % (11.6-14.6); Red Blood Count 4.75 M/mm3 (4.6-6.2); White Blood Count 10.7 K/mm3 (4.4-11.0)
[2018-03-11 11:24] LABS: POSITIVE COUNT NO; POSITIVE DIFFERENTIAL NO; POSITIVE MORPHOLOGY NO
[2018-03-11 11:48] LABS: Rheumatoid Factor < 10.0 IU/mL (<15)
[2018-03-13 03:08] LABS: Cytoplasmic Ab (C-ANCA) <1:20 titer (Neg:<1:20)
[2018-03-15 11:51] LABS: CCP IgG Antibodies 6 units (0-19); Perinuclear Ab (P-ANCA) <1:20 titer (Neg:<1:20)
== END ==
PROVIDERS: Family Provider Internal Medicine; PCP Internal Medicine; Referring Provider Nurse Practitioner Acute Care; Visit Provider Nurse Practitioner Acute Care
DX: J45.50 Severe persistent asthma, uncomplicated (principal); R06.09 Other forms of dyspnea
CPT/HCPCS: 36415; 85025; 86200; 86256; 86431

== ENCOUNTER → 2018-03-16 07:30 | Outpatient (CLI) | payer OTHER, SELFPAY ==
--- NOTE | 2018-03-16 07:35 | RAD_ITS ---
STUDY: X-RAY CHEST REASON FOR EXAM: Male, 67 years old. Shortness of breath TECHNIQUE: PA and lateral views of the chest. COMPARISON: Previous study of 09/03/2016 FINDINGS: The lungs are hyperinflated. There are streaky atelectatic changes of the lung bases. There is hemidiaphragmatic flattening. Normal size heart. Normal mediastinum and kole. Normal visualized pulmonary arteries. There are calcified plaques of the aortic arch. Normal visualized thoracic spine. Normal visualized ribs, clavicles, and shoulders. There is no demonstrated abnormality of the visualized soft tissue structures of the upper abdomen. RAD/Chest PA and Lateral IMPRESSION: Hyperinflated lungs consistent with COPD. There are streaky atelectatic changes of the lung bases, new in the interval. Calcified plaques of the aortic arch. Electronically Signed: Angus Bell MD at 23:59 EST , Service support ,
== END ==
PROVIDERS: Family Provider Internal Medicine; PCP Internal Medicine; Referring Provider Internal Medicine Critical Care Medicine; Visit Provider Internal Medicine Critical Care Medicine
DX: J45.50 Severe persistent asthma, uncomplicated (principal); J44.9 Chronic obstructive pulmonary disease, unspecified
CPT/HCPCS: 71046

== ENCOUNTER → 2018-03-16 10:56 | Outpatient (CLI) | payer OTHER, SELFPAY | PROVIDERS: Referring Provider Internal Medicine Critical Care Medicine; Visit Provider Internal Medicine Critical Care Medicine | DX: J44.9 Chronic obstructive pulmonary disease, unspecified (principal) | CPT/HCPCS: 87015; 87070; 87077; 87101; 87116; 87205; 87206 ==

== ENCOUNTER 2018-07-22 13:00 | Outpatient (RCR) | payer OTHER, SELFPAY ==
[2018-06-09 09:59] VITALS: BMI 34.9
--- NOTE | 2018-06-21 10:44 | HP.PTEVAL ---
Patient's Visit Information PEDRO ORTIZ is a 67 year old M referred to Physical Therapy by ALEM Pacheco with a diagnosis of COPD. Date of Evaluation: 06/21/18 Physical Therapist: Leona Rabago DPT - Visit Plan Frequency: 2x /Week Duration: 4 Weeks Plan: Core s/s and endurance - Subjective Findings: Patient reports end stage COPD- has about 20% lung left. Is taking a lot of Prednisone and feels like he is gaining weight and slowing down. Normal day is pretty sedentary. No pain just hard to breathe. Is able to get out and do the snow but he is using O2 at the end (2-3L). CPAP and 6L O2 at night and uses it when he naps but not when he is up and moving. Very active then he started with COPD. Usually runs about 92-93 if he does to much it goes down to 86 and his heart beat race. He is on medication for all of these things. Wants to be more active. Wants to lose weight to put less pressure on the lungs. Likes to be in the water- and feels comfortable and confident. PMHx: COPD, shoulder surgery october 2015 left, Low back surgery Jun 2014- clean out. Meds:Bonesadine, Bronidprop, Claratin, Singluair, Atenol, 2 nose sprays, Roxinal, Zolair, allergy injections. No falls or loss of balance. One story home with lives with who can help as needed. - Objective Posture: FH, RS- increased kyphosis- can correct with verbal cues but does not mainta. Gait: no deviation noted. Endurance: poor- patient is SOB after 150 feet of ambulation and a single flight of stairs. Stairs: asc/desc 8 recip with 1 HR. SLS: Left: 8 seconds Right: 30 seconds. HR/TR: able without UE A. ROM: WFL in all planes. Strength: ankle: 5/5, Knee: 4/5, Hip: 4/5, Core: poor. Flex: HS: moderate Gastroc: moderate - Goals Goal 1:: Patient will be I with HEP and progression Goal Time Frame: 4-6 Weeks Goal 2:: Patient will maintian proper posture t/o tx session to demo increased core s/s Goal Time Frame: 4-6 Weeks Goal 3:: Patient will ambulate >300 feet with no SOB Goal Time Frame: 4-6 Weeks - Rehabilitation Potential Physical Therapy Diagnosis: Patient presents with hypomobility- he has decreased strength and muscular endurance leading to poor posture- also displays significantly decreased endurance Rehabilitation Potential: Fair - Anticipated Interventions Patient/Client Instruction: Educate patient on: Benefits of Fitness Program Therapeutic Exercise to Include: Strength training, Endurance training, Balance training, Body mechanics, Postural training, Flexibilty training, In an aquatic setting For the Purpose of:: To increase oxygenation perfusion, To improve muscle performance and motor function, To improve ability to perform ADL's Thank you for the opportunity to evaluate your patient. For Medicare and Medicare HMO plans, please review the plan of care and approve it. It will need to be FAXED BACK to us at [phone] for Medicare purposes. For Medicare only, by signing this I certify the plan of care. Please let me know if there are questions or concerns regarding this plan of care. Physician Signature: Date:
--- NOTE | 2018-07-22 13:32 | HP.PTDCSUM ---
HP - PT D/C Summary It has been my pleasure to treat PEDRO ORTIZ under orders from STACEY PachecoC, for the diagnosis of COPD for a total of 10 visit(s). Discharge Date: Please see the following information for a summary of their discharge status. - Subjective Subjective: Patient reports that he is stronger, the breathing is better and feels better in a mental capactity. Has bought a treadmill and plans to continue to work at home. He wants to be able to do more with his lungs. Feels confident with doing his HEP. - Overall Improvement % Improvement: 80 - Objective Objective/Function: Posture: Good posture in unsupported chair Gait: no deviation noted. Endurance: poor- patient has mild SOB after 300 feet of ambulation and a single flight of stairs. Stairs: asc/desc 8 recip with 1 HR. SLS: Left: 12 seconds Right: 30 seconds. HR/TR: able without UE A. ROM: WFL in all planes. Strength: ankle: 5/5, Knee: 5/5, Hip: 4+/5, Core: fair Flex: HS: moderate Gastroc: moderate - Goals Goal 1:: Patient will be I with HEP and progression Goal Progress: Goal Met Goal 2:: Patient will maintian proper posture t/o tx session to demo increased core s/s Goal Progress: Goal Met Goal 3:: Patient will ambulate >300 feet with no SOB Goal Progress: Progressing - Plan Plan: Discharge to I HEP - D/C Information If there are questions or concerns regarding this patient's physical therapy, please feel free to call me at [phone]. Thank you for the referral of this patient. Sincerely, Leona Rabago DPT
== END 2018-07-22 19:00 | disposition home or self-care (01) ==
LOC: PT 13:00
PROVIDERS: Family Provider Internal Medicine; Referring Provider Nurse Practitioner Family; Visit Provider Nurse Practitioner Family
DX: J44.9 Chronic obstructive pulmonary disease, unspecified (principal)
CPT/HCPCS: 97113; 97161; 97164

== ENCOUNTER → 2018-10-15 | Outpatient (CLI) | payer OTHER, SELFPAY ==
[2018-09-29 08:58] VITALS: BMI 35.4
[2018-10-13 10:00] VITALS: BMI 34.9
--- NOTE | 2018-10-15 14:26 | CT_ITS ---
HISTORY: History of smoking, COPD, follow-up COMPARISON: CT chest 12/03/2017 and 05/18/2016 TECHNIQUE: Low-dose helical CT axial images of the thorax without IV contrast. Multiplanar reconstruction. A radiation dose optimization technique was used for this scan. # of images incl. paperwork: 575 FINDINGS: Total lung nodules (excluding granulomata): 0 LUNGS: Hyperinflated lungs. Moderate centrilobular pulmonary emphysema more pronounced within the upper lobes. Mild linear scarring within the lingula and bilateral lower lobes.No confluent areas of acute consolidation. No pulmonary masses or suspicious nodules. MEDIASTINUM: No abnormally enlarged mediastinal or hilar lymph nodes. PLEURA: No pleural effusion. No pneumothorax. CARDIAC: Normal heart size. No pericardial effusion. VASCULAR: Thoracic aorta is normal in caliber without aneurysm. The pulmonary vasculature demonstrates no significant dilatation. CHEST WALL: Chest wall is intact. No abnormal axillary lymphadenopathy. BONES: No suspicious osseous lytic or blastic lesions seen. UPPER ABDOMEN: The visualized upper abdomen demonstrates no acute abnormality. CT/Low Dose CT Lung Screening IMPRESSION: 1. No lung nodules, evidence for malignancy, or acute cardiopulmonary disease. 2. Moderate pulmonary emphysema. No significant interval change. 3. Lung RADS category 1 -continue annual screening with LDCT in 12 months. Individualized dose optimization techniques were used for this CT. at 0406 Reported and signed by: Danis Linder MD Electronically Signed: Danis Linder MD at 4:05 EDT Tel , Service support ,
== END | disposition home or self-care (01) ==
LOC: CT 14:25
PROVIDERS: Family Provider Family Medicine; PCP Family Medicine; Referring Provider Internal Medicine Critical Care Medicine; Visit Provider Internal Medicine Critical Care Medicine
DX: J44.9 Chronic obstructive pulmonary disease, unspecified (principal); Z12.2 Encounter for screening for malignant neoplasm of respiratory organs
CPT/HCPCS: G0297

== ENCOUNTER → 2018-11-03 | Outpatient (CLI) | payer OTHER, SELFPAY ==
[2018-10-27 09:30] VITALS: BMI 34.1
[2018-11-03 14:52] LABS: Absolute Lymphocyte Count 0.87 X10^3/ul (0.83-4.51); Absolute Neutrophil Count 6.8 X10^3/uL (2.0-7.7); Basophil# 0.01 X10^3/uL; Basophil% 0.1 % (0-1); Eosinophils% 1.2 % (0-5); Hematocrit 39.4 % (40-54); Hemoglobin 12.7 g/dl (13.0-16.5); Lymphocyte # 0.87 X10^3/ul (4.0); Lymphocyte % 10.2 % (19-41); Mean Corp Hgb Conc 32.2 g/gl (32-36); Mean Corpuscular Hgb 29.8 pg (27.0-32.0); Mean Corpuscular Volume 92.5 fL (80-94); Mean Platelet Vol. 9.3 fl (6.2-12.0); Monocyte# 0.78 X10^3/uL; Monocyte% 9.1 % (0-10); Neutrophil # 6.75 X10^3/uL (2.7-7.7); Platelet Count 145 K/mm3 (150-450); RBC Distribution Width CV 13.8 % (11.6-14.6); RBC Distribution Width SD 46.8 fl (35.1-43.9); Red Blood Count 4.26 M/mm3 (4.6-6.2); White Blood Count 8.5 K/mm3 (4.4-11.0)
[2018-11-03 14:54] LABS: POSITIVE COUNT NO; POSITIVE DIFFERENTIAL NO; POSITIVE MORPHOLOGY NO
== END | disposition home or self-care (01) ==
LOC: PAVLAB 14:27
PROVIDERS: Family Provider Family Medicine; PCP Family Medicine; Referring Provider Nurse Practitioner Acute Care; Visit Provider Nurse Practitioner Acute Care
DX: J45.909 Unspecified asthma, uncomplicated (principal)
CPT/HCPCS: 36415; 85025

== ENCOUNTER → 2018-12-15 10:54 | Outpatient (CLI) | payer OTHER, SELFPAY ==
[2018-09-29 08:58] VITALS: BMI 35.4
[2018-12-08 10:25] VITALS: BMI 33.0
[2018-12-15 11:22] VITALS: PULSE 100; PULSE 103; PULSE 104; PULSE 106; PULSE 76; PULSE 90; PULSE 92; O2SAT 87; O2SAT 89; O2SAT 90; O2SAT 91; O2SAT 96; O2SAT 98
--- NOTE | 2018-12-15 11:24 | CPS ---
PATIENT ARRIVED ON 2 LPM. patient weaned to room air for testing. patient placed on 1 lpm post 3 minutes walking due to a sp02 of 87%.
--- NOTE | 2018-12-15 15:11 | WT_ITS ---
PSN 6 Minute Walk Test - 6 Minute Walk Test 6 Minute Walk Test: 6 Minute Walk Test PSN:6-Minute Walk Test Start: 12/15/18 11:22 Freq: Status: Active Protocol: [id number] Document 12/15/18 11:22 DWP (Rec: 12/15/18 11:30 [facility] [id number]) 6 Minute Walk Test Date Performed 12/15/18 Time Performed 11:00 Height 223 ft 1.17 in Weight: 99.79 kg Weight in Pounds 220.[address]: Chandan Carson FIO2 (% Oxygen) 2 Assistive device used: None Post-test Oxygen Flow Rate (L/min) (L/min) 1 Oxygen Delivery Method Nasal Cannula Pulse Ox (%) 96 Pulse Rate (60-100 beats/min) 92 6th minute Oxygen Flow Rate (L/min) (L/min) 1 Oxygen Delivery Method Nasal Cannula Pulse Ox (%) 91 Pulse Rate (60-100 beats/min) 103 H 5th minute Oxygen Flow Rate (L/min) (L/min) 1 Oxygen Delivery Method Nasal Cannula Pulse Ox (%) 90 Pulse Rate (60-100 beats/min) 104 H 4th minute Oxygen Flow Rate (L/min) (L/min) 1 Oxygen Delivery Method Nasal Cannula Pulse Ox (%) 89 Pulse Rate (60-100 beats/min) 106 H 3rd minute Oxygen Delivery Method Room Air Pulse Ox (%) 87 Pulse Rate (60-100 beats/min) 106 H Reported Symptoms Increased Work of Breathing 2nd minute Oxygen Delivery Method Room Air Pulse Ox (%) 91 Pulse Rate (60-100 beats/min) 90 1st minute Oxygen Delivery Method Room Air Pulse Ox (%) 89 Pulse Rate (60-100 beats/min) 100 Pre-test Oxygen Delivery Method Room Air Pulse Ox (%) 98 Pulse Rate (60-100 beats/min) 76 Dyspnea Arden Scale (0-10) 6 Exertion Arden Scale (6-20) 12 Full Laps Walked 14 Partial Lap, Number of Tiles Walked 0 Total Distance Walked (ft) 826 12/15/18 11:24 Cardiopulmonary Services by [facility] PATIENT ARRIVED ON 2 LPM. patient weaned to room air for testing. patient placed on 1 lpm post 3 minutes walking due to a sp02 of 87%. Initialized on 08/07/19 11:24 - END OF NOTE - Interpretation Interpretation: The patient was able to ambulate 826 feet over the course of 6 minutes on room air with no assisted devices or breaks. The patient was noted to be 98% on room air, but desaturated to 89% in the third minute. Patient was placed on 1 L nasal cannula and maintain marginal saturations throughout the rest of the ambulation. These findings are consistent with a respiratory limitation exercise tolerance. - Recommendations Recommendations: No supplemental oxygen is indicated at rest, but patient should be using 2 L nasal cannula oxygen with any exertion.
== END ==
PROVIDERS: Family Provider Family Medicine; PCP Family Medicine; Referring Provider Internal Medicine Critical Care Medicine; Visit Provider Internal Medicine Critical Care Medicine
DX: J44.9 Chronic obstructive pulmonary disease, unspecified (principal)
CPT/HCPCS: 94618

== ENCOUNTER → 2018-12-16 09:47 | Outpatient (CLI) | payer OTHER, SELFPAY ==
[2018-09-29 08:58] VITALS: BMI 35.4
[2018-12-08 10:25] VITALS: BMI 33.0
--- NOTE | 2018-12-16 14:52 | PFTCOMP_ITS ---
COMPLETE PULMONARY FUNCTION TEST INTERPRETATION Brief HPI: Patient is a 68 year old male, currently under the care of myself, who presents to [facility] for complete pulmonary function tests secondary to diagnosis of COPD. Respiratory therapist reports good effort and reproducible results. Interpretation: Forced expiration spirometry shows a very severe large airways obstructive ventilatory defect with an FEV1 of 31% predicted. There is no significant bronchodilator response by strict ATS criteria. Spirograms are of good quality and plateau slowly, indicating slowly emptying areas of the lungs. The respiratory flow volume loop shows decreased expiratory flow rates at all lung volumes consistent with airway obstruction. Lung volumes by body plethysmography show an elevated total lung capacity at 8.59 L, 142% predicted. FRC and RV are elevated out of proportion. Lung volume measurements are consistent with hyperinflation and air-trapping. Diffusion capacity by carbon monoxide is decreased at 49% predicted. The airway resistance is elevated. Compared to previous pulmonary function tests from 11/24/2017, there is been a significant improvement in FVC and FEV1 by 56 and 43% respectively.. Impression: Irreversible very severe large airways obstructive ventilatory defect with a symmetric reduction diffusion capacity, resulting in air trapping with hyperinflation, in a pattern consistent with advanced COPD
== END ==
PROVIDERS: Family Provider Family Medicine; PCP Family Medicine; Referring Provider Internal Medicine Critical Care Medicine; Visit Provider Internal Medicine Critical Care Medicine
DX: J44.9 Chronic obstructive pulmonary disease, unspecified (principal)
CPT/HCPCS: 94060; 94726; 94729

== ENCOUNTER → 2019-04-12 12:55 | Outpatient (CLI) | payer OTHER, SELFPAY ==
[2019-03-22 10:20] VITALS: BMI 34.7
--- NOTE | 2019-04-12 13:01 | BD_ITS ---
STUDY: DUAL ENERGY X-RAY ABSORPTIOMETRY / DXA REASON FOR EXAM: Male, 68 years old. Daily prednisone use. Loss of height. TECHNIQUE: Bone Mineral Density (BMD) measurements of lumbar spine and bilateral hips were obtained. COMPARISON: None. FINDINGS: Lumbar Spine (L1-L4): g/cm2 (0.868) / T-score (-3.1) / Z-score (-2.6) Findings are suggestive of osteoporosis with a high fracture risk. Left Femur Total: g/cm2 (0.966) / T-score (-0.9) / Z-score (-0.2) Left Femoral Neck: g/cm2 (0.864) / T-score (-1.6) / Z-score (-0.3) Right Femur Total: g/cm2 (1.012) / T-score (-0.6) / Z-score (0.1) Right Femoral Neck: g/cm2 (0.878) / T-score (-1.5) / Z-score (-0.2) BD/Dexa Bone Density Study IMPRESSION: The patient is considered osteoporotic as outlined below according to World [employer] Organization (WHO) criteria with a high fracture risk. Reference Information: The T-score is the number of standard deviations above or below the standard which is normal for young adults at their peak bone mineral density. The World Health Organization (WHO) interprets the T-scores as follows: Above -1 Normal bone density Between -1 and -2.5 Osteopenia Equal to / or below -2.5 Osteoporosis As a practical clinical guideline, osteopenia may be graded as follows: Mild -1 through -1.5 Moderate -1.6 through -2.0 Severe -2.1 through -2.4 The Z-score is the number of standard deviations above or below age-matched controls. A Z-score of less than -1.5 would be considered abnormal. References: 1. NIH Osteoporosis and Related Bone Diseases http://www.osteo.org 2. International Society for Clinical Densitometry http://www.iscd.org 3. National Osteoporosis Foundation http://www.nof.org Electronically Signed: Brad Yi, at 13:56 EST , Service support ,
== END ==
PROVIDERS: Family Provider Family Medicine; PCP Family Medicine; Referring Provider Nurse Practitioner Acute Care; Visit Provider Nurse Practitioner Acute Care
DX: Z79.52 Long term (current) use of systemic steroids (principal)
CPT/HCPCS: 77080

== ENCOUNTER → 2019-06-14 11:43 | Outpatient (CLI) | payer OTHER, SELFPAY ==
[2019-06-14 11:01] VITALS: BMI 34.7
--- NOTE | 2019-06-14 12:05 | RAD_ITS ---
STUDY: X-RAY CHEST REASON FOR EXAM: Male, 68 years old. SOB TECHNIQUE: PA and lateral views of the chest. COMPARISON: March 16, 2018 FINDINGS: There are interstitial fibrotic changes of the lungs. There is no demonstrated pleural abnormality. No consolidation is seen. Normal size heart. Stable mediastinal and osseous structures. RAD/Chest PA and Lateral IMPRESSION: No acute process Electronically Signed: Agustin Mahmood MD at 23:17 EST , Service support ,
[2019-06-14 12:41] LABS: Anion Gap 4 (5-15); BUN 17 mg/dL (7-18); BUN/Creat Ratio 16.7 RATIO (10-20); CRP < 2.90 mg/L (0.0-3.0); Calcium,Total 9.4 mg/dL (8.5-10.1); Chloride 107 mmol/L (98-107); Creatinine, Serum 1.02 mg/dL (0.70-1.30); EST Glomerular Filtration Rate 77 mL/min (>60); Est Glom Filt Rate - Afr Amer 93 mL/min (>60); Glucose 100 mg/dL (74-106); Rheumatoid Factor < 10.0 IU/mL (<15); Sodium Level 141 mmol/L (136-145)
[2019-06-14 12:50] LABS: BNP,B-Type NATRIURETIC PEPTIDE 30.4 pg/mL (0-100)
[2019-06-15 20:45] LABS: ANTINUCLEAR ANTIBODIES DIRECT Negative (Negative)
[2019-06-16 03:06] LABS: Cytoplasmic Ab (C-ANCA) <1:20 titer (Neg:<1:20)
[2019-06-16 16:01] LABS: CCP IgG Antibodies 7 units (0-19); Perinuclear Ab (P-ANCA) <1:20 titer (Neg:<1:20)
== END ==
PROVIDERS: PCP Family Medicine; Referring Provider Nurse Practitioner Acute Care; Visit Provider Nurse Practitioner Acute Care
DX: R06.09 Other forms of dyspnea (principal)
CPT/HCPCS: 36415; 71046; 80048; 83880; 86038; 86140; 86200; 86256; 86431

== ENCOUNTER 2019-09-28 10:36 | Inpatient (IN) | payer MEDICARE, OTHER, SELFPAY ==
[2019-09-28] VITALS (11 sets, daily range): BP systolic 106–138; BP diastolic 76–90; PULSE 72–93; RESP 12–24; TEMP 36.1–36.5; O2SAT 93–98; BMI 37.4; BMI 35.6; BMI 35.7
--- NOTE | 2019-09-28 10:54 | RAD_ITS ---
STUDY: X-RAY CHEST REASON FOR EXAM: Male, 69 years old. DYSPNEA TECHNIQUE: Single AP portable view of the chest. COMPARISON: 06/14/2019 FINDINGS: Poor inspiration with some bibasilar atelectasis. There is no demonstrated pleural abnormality. Normal size heart. Normal mediastinum and kole. Normal visualized pulmonary arteries. Normal visualized aortic arch and descending thoracic aorta. Normal visualized thoracic spine. Normal visualized ribs, clavicles, and shoulders. There is no demonstrated abnormality of the visualized soft tissue structures of the upper abdomen. RAD/Chest 1 View (Portable) IMPRESSION: Poor inspiration with some bibasilar atelectasis. Electronically Signed: Kehinde Walls MD at 11:22 EDT Tel , Service support ,
--- NOTE | 2019-09-28 10:59 | PCM.HP.STD ---
Problem List (1) PINZON (dyspnea on exertion) Status: Acute (2) Osteoporosis of lumbar spine Status: Chronic (3) Stage 4 very severe COPD by GOLD classification Status: Chronic (4) Nonrheumatic tricuspid (valve) insufficiency Status: Chronic (5) Chronic hypoxemic respiratory failure Status: Chronic (6) SCOTT (obstructive sleep apnea) Status: Chronic (7) Pulmonary HTN Status: Chronic (8) Tobacco abuse Status: Chronic (9) Spinal stenosis Status: Chronic (10) Sprain and strain of lumbosacral joint/ligament Status: Chronic (11) Acute bronchitis Status: Resolved (12) H/O heart artery stent Status: Chronic Comment: 1999 (13) S/P lumbar spinal fusion Status: Chronic Comment: L1-L5 05/2014 (14) [facility] d subsequent Cyper DEX to mid cx per Dr. Boston at [facility] Status: Resolved Comment: 2006 (15) S/P left rotator cuff repair Status: Resolved Comment: 10/2015 (16) H/O cardiac catheterization Status: Resolved Comment: 09/08/2016 (17) Tobacco dependence in remission Status: Chronic Comment: LDCT due in October 2019 (18) Severe persistent asthma Status: Chronic Qualifiers: Asthma complication type: with acute exacerbation Qualified Code(s): J45.51 - Severe persistent asthma with (acute) exacerbation (19) Personal history of nicotine dependence Status: Acute (20) Asthma Status: Acute Qualifiers: Asthma severity: severe Asthma persistence: persistent Asthma complication type: uncomplicated Qualified Code(s): J45.50 - Severe persistent asthma, uncomplicated (21) Allergic asthma with acute exacerbation Status: Chronic Qualifiers: Asthma severity: severe Asthma persistence: persistent Qualified Code(s): J45.51 - Severe persistent asthma with (acute) exacerbation (22) PND (post-nasal drip) Status: Acute (23) SCOTT (obstructive sleep apnea) Status: Chronic (24) Stage 4 very severe COPD by GOLD classification Status: Chronic Comment: FEV1 31% (25) Acute exacerbation of chronic obstructive pulmonary disease Status: Acute (26) CAD (coronary artery disease) Status: Chronic Qualifiers: Coronary Disease-Associated Artery/Lesion type: [place] artery [place] vs. transplanted heart: [place] heart Associated angina: without angina Qualified Code(s): I25.10 - Atherosclerotic heart disease of [place] coronary artery without angina pectoris (27) COPD (chronic obstructive pulmonary disease) Status: Chronic Qualifiers: COPD type: emphysema Emphysema type: centrilobular Qualified Code(s): J43.2 - Centrilobular emphysema History of Present Illness Date of Admission: 09/28/19 Chief Complaint: Shortness of breath The patient is a 69 year old M with past medical history including coronary artery disease with previous stent placement COPD stage IV per Gold criteria obstructive sleep apnea chronic hypoxic respiratory failure on baseline home O2 who presents with shortness of breath. Per patient his symptoms have been ongoing for the past couple of weeks and has gotten progressively worse over the past couple of days. Patient had apparently been treated as an outpatient for acute bronchitis with steroid and antibiotics as well as initiation of diuretic therapy with no improvement. Per patient he had undergone evaluation as outpatient with a COVID 19 assay obtained at a local pharmacy which was reported to be negative. 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 and in view of his worsening status was directly admitted for further inpatient evaluation and management Past Medical History Past Medical History (Chronic Problems): Chronic Problems (Last Reviewed 09/28/19 @ 09:30 by Rachel Dwyer) Osteoporosis of lumbar spine (Chronic) Stage 4 very severe COPD by GOLD classification (Chronic) Nonrheumatic tricuspid (valve) insufficiency (Chronic) Chronic hypoxemic respiratory failure (Chronic) SCOTT (obstructive sleep apnea) (Chronic) Pulmonary HTN (Chronic) Tobacco abuse (Chronic) Spinal stenosis (Chronic) Sprain and strain of lumbosacral joint/ligament (Chronic) H/O heart artery stent (Chronic) 1999 S/P lumbar spinal fusion (Chronic) L1-L5 05/2014 Tobacco dependence in remission (Chronic) LDCT due in October 2019 Severe persistent asthma (Chronic) Allergic asthma with acute exacerbation (Chronic) SCOTT (obstructive sleep apnea) (Chronic) Stage 4 very severe COPD by GOLD classification (Chronic) FEV1 31% CAD (coronary artery disease) (Chronic) COPD (chronic obstructive pulmonary disease) (Chronic) Medical History: Medical History (Last Reviewed 09/28/19 @ 11:[address] Rodolfo Stevenson MD) Stage 4 very severe COPD by GOLD classification (Chronic) J44.9 Nonrheumatic tricuspid (valve) insufficiency (Chronic) I36.1 Chronic hypoxemic respiratory failure (Chronic) J96.11 SCOTT (obstructive sleep apnea) (Chronic) G47.33 Pulmonary HTN (Chronic) I27.20 Tobacco abuse (Chronic) Z72.0 Spinal stenosis (Chronic) M48.00 Sprain and strain of lumbosacral joint/ligament (Chronic) S33.5XXA Acute bronchitis (Acute) J20.9 Severe persistent asthma (Chronic) J45.50 Personal history of nicotine dependence (Acute) Z87.891 Asthma (Acute) J45.909 Allergic asthma with acute exacerbation (Acute) J45.901 PND (post-nasal drip) (Acute) R09.82 PINZON (dyspnea on exertion) (Acute) R06.09 SCOTT (obstructive sleep apnea) (Chronic) G47.33 Stage 4 very severe COPD by GOLD classification (Chronic) J44.9 FEV1 31% Acute exacerbation of chronic obstructive pulmonary disease (Acute) J44.1 CAD (coronary artery disease) (Chronic) I25.10 COPD (chronic obstructive pulmonary disease) (Chronic) J44.9 Acute respiratory failure with hypoxia (Resolved) J96.01 Wheezing R06.2 Chest pain, unspecified R07.9 PINZON (dyspnea on exertion) R06.09 Hypersomnia G47.10 Oxygen desaturation R09.02 Allergies No Known Allergies Allergy (Verified 09/28/19 09:30) Home Medications: Ambulatory Orders Medication Instructions Recorded Albuterol Inhaler [Ventolin Hfa] 2 puff INHALATION Q6H PRN PRN 05/16/16 Aspirin [Aspirin, Baby] 81 mg PO DAILY@0800 tab.chew 05/24/16 guaifenesin 600 mg tablet, 600 mg PO Q12H PRN 05/14/17 extended release 12 hr fluticasone propionate 50 2 spray INTRANASAL QDAY #16 g 07/23/17 mcg/actuation nasal spray,suspension albuterol sulfate 2.5 mg INHALATION BID #180 ea 11/27/17 atenolol 25 mg tablet 25 mg PO DAILY 02/09/18 Portable Oxygen Concentrator #1 ea 03/16/18 budesonide 0.5 mg/2 mL suspension 2 ml INHALATION Q12H #60 ea 09/29/18 for nebulization furosemide 40 mg tablet 40 mg PO DAILY PRN #30 tab 09/29/18 potassium chloride 20 mEq 20 meq PO DAILY PRN #30 tab 09/29/18 tablet,extended release loratadine 10 mg tablet 10 mg PO QDAY #90 tab 10/27/18 ipratropium 0.5 mg-albuterol 3 mg 3 ml INHALATION Q6H PRN #180 ml 02/02/19 (2.5 mg base)/3 mL nebulization soln azithromycin 250 mg tablet 250 mg PO QMWF #12 tab 03/22/19 prednisone 10 mg tablet 20 mg PO QDAY #60 tab 03/22/19 azelastine 137 mcg (0.1 %) nasal 1 spray INTRANASAL BID #30 ml 09/01/19 spray aerosol Alendronate Sodium 70 mg PO TH 09/28/19 Benzonatate 200 mg PO QODAY 09/28/19 Calcium Carbonate [Calcium] 1,000 mg PO DAILY 09/28/19 Ergocalciferol (Vitamin D2) 50,000 unit PO QMONTH 09/28/19 [Vitamin D2] Lorazepam [Ativan] 0.5 mg PO QHS PRN PRN 09/28/19 Montelukast [Singulair] 10 mg PO DAILY 09/28/19 Roflumilast [Daliresp] 500 mcg PO QODAY 09/28/19 Tamsulosin HCl 0.8 mg PO DAILY 09/28/19 morphine solution (IR) [Roxanol 0.125 mg PO TID PRN PRN 09/28/19 (IR oral solution)] Surgical History: Surgical History (Last Reviewed 09/28/19 @ 11:[address] Rodolfo Stevenson MD) H/O heart artery stent (Resolved) Z95.5 1999 S/P lumbar spinal fusion (Resolved) Z98.1 L1-L5 05/2014 [facility] d subsequent Cyper DEX to mid cx per Dr. Boston at [facility] (Resolved) 2006 S/P left rotator cuff repair (Resolved) Z98.890 10/2015 H/O cardiac catheterization (Resolved) Z98.890 09/08/2016 Surgical History: - - shoulder, back, heart stent Psychiatric History: - Smoking Status: Former smoker - *Family History Maternal Family History: Family History (Last Reviewed 09/28/19 @ 11:[address] Rodolfo Stevenson MD) Father Heart disease History Items: - - mother still living at 91 Paternal Family History: Family History (Last Reviewed 09/28/19 @ 11:[address] Rodolfo Stevenson MD) Father Heart disease History Items: Heart Disease Review of Systems Constitutional: Denies: Anorexia, Chills, Fever, Night Sweats, Weight Change HEENT: Denies: Head Aches, Sinus Congestion, Sinus Drainage Cardiovascular: Denies: Chest Pain, Orthopnea, Palpitations, Paroxysmal Noc. Dyspnea Respiratory: Reports: Cough, Shortness of Breath. Denies: Shortness of breath at rest Gastrointestinal: Denies: Abdominal Pain, Hematemesis, Hematochezia, Nausea, Melena, Vomiting Genitourinary: Denies: Dysuria, Frequency, Hematuria, Urgency Musculoskeletal: Denies: Joint Pain, Joint Tenderness Skin: Denies: Rash Neurological: Denies: Focal weakness, Numbness, Tingling Psychiatric: Denies: Homicidal Ideations, Suicidal Ideations Hematologic/ Lymphatic: Denies: Easy Bruising, Easy Bleeding VTE Information - Inpt Only VTE Present on Admission: No VTE Mechan Device Prophylaxis: None VTE Pharm Prophylaxis ordered?: Yes Objective: GENERAL: cooperative HEENT: Atraumatic; EYES; Anicteric, Normal Conjunctiva NECK; supple, normal thyroid, RESPIRATORY: Diminished to auscultation CARDIOVASCULAR: Regular S1 S2, GI: soft, normoactive bowel sounds, : No Renal angle tenderness; EXTREMITIES: Bipedal edema MUSCULOSKELETAL: no muscle waisting NEURO: Awake; no lateralizing signs. SKIN: No Rash PSYCH; Flat affect - Physical Exam Vitals/I&O's: Weight: 106.4 kg Body Mass Index (BMI) 35.6 Current Medications Acetaminophen (Tylenol) 650 mg PO Q6H PRN PRN PRN Reason: Pain Score 1-10/Temp > 100.7 F Al Hydroxide/Mg Hydroxide (Mylanta Ii) 30 ml PO Q6H PRN PRN PRN Reason: Gastric Burning Albuterol Sulfate (Ventolin Aerosols) 2.5 mg INHALATION Q2H PRN PRN PRN Reason: SOB/Wheezing Guaifenesin (Robitussin) 20 ml PO Q4H PRN PRN PRN Reason: COUGH Sodium Chloride () 250 mls @ 15 mls/hr IV .[id number] PRN PRN Reason: Saline Flush Sodium Chloride () 250 mls @ 15 mls/hr IV .[id number] PRN PRN Reason: Additional IVPB Infusion Magnesium Hydroxide (Milk Of Magnesia) 30 ml PO DAILY PRN PRN PRN Reason: Constipation Melatonin (Melatonin) 3 mg PO QHS PRN PRN PRN Reason: INSOMNIA Nitroglycerin (Nitrostat) 0.4 mg SUBLINGUAL Q5M PRN PRN Reason: CARDIAC/CHEST PAIN Ondansetron HCl (Zofran) 4 mg IV Q8H PRN PRN PRN Reason: NAUSEA/VOMITING Oxycodone HCl (Oxyir) 5 mg PO Q4H PRN PRN PRN Reason: Pain Score 4-5/10 Oxycodone HCl (Oxyir) 10 mg PO Q4H PRN PRN PRN Reason: Pain Score 6-10/10 Promethazine HCl (Phenergan) 25 mg IM Q6H PRN PRN PRN Reason: Breakthrough Nausea/Vomiting Sodium Chloride () 10 - 40 ml IV UD PRN PRN Reason: SALINE FLUSH Assessment/Plan All Active Problems (Last Reviewed 09/28/19 @ 09:30 by Rachel Dwyer) Acute bronchitis (Resolved) [facility] d subsequent Cyper DEX to mid cx per Dr. Boston at [facility] (Resolved) S/P left rotator cuff repair (Resolved) H/O cardiac catheterization (Resolved) Personal history of nicotine dependence (Acute) Asthma (Acute) PND (post-nasal drip) (Acute) PINZON (dyspnea on exertion) (Acute) Acute exacerbation of chronic obstructive pulmonary disease (Acute) Acute respiratory failure with hypoxia (Resolved) Patient is a 69-year-old gentleman admitted with progressive shortness of breath 1. Acute dyspnea ?Differential diagnoses include worsening congestive heart failure versus COPD with acute exacerbation versus VTE. Patient has been admitted to a monitored bed. As part of his initial management ordered proBNP chest x-ray, EKG d-dimer. Patient is on oxygen at home did continue. Consultation was also placed to pulmonary medicine. Subsequent evaluation will depend on patient initially testing. 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 Patient is followed by pulmonary as outpatient. Patient is on aerosol treatment, budesonide, Singulair, Zithromax every other day, and and Roflumilast as outpatient 3. Chronic hypoxic respiratory failure Secondary to COPD patient is on baseline home O2 4. Coronary artery disease ?With previous stent placement. Patient is on antiplatelet therapy with aspirin as well as beta-blockers. 5. Hypertension - blood pressure controlled, home medications continued with dose adjustment as needed 5. BPH - Symptoms controlled with tamsulosin 0.8 mg daily 6. Chronic congestive heart failure ?With preserved ejection fraction of 65%. Do suspect CHF contributing to patient's symptoms. Patient is on Lasix did continue 8. Osteoporosis involving the lumbar spine ?Patient is on biphosphonate's q. weekly 9. Obstructive sleep apnea 9?patient on Pap therapy at night 10. Morbid obesity with BMI of 35.7 ?Weight loss advised 11. DVT prophylaxis ?Enoxaparin Advance planning; did discuss with the patientadvanced directives as well as CODE STATUS. Did explain the various scenarios involved ( FULL CODE, DNR CCA, DNR CCA with no intubation, and DNR CC and what each meant) patient elected full code. Order was placed. Time spent on discussion 18 minutes. Inpatient E&M: 03593 Init Hosp L3 Procedures: 07721 Advncd Care Plan 30 Min
--- NOTE | 2019-09-28 11:26 | EKG12_ITS ---
Test Reason : SOB Blood Pressure : / mmHG Vent. Rate : 083 BPM Atrial Rate : 083 BPM P-R Int : 146 ms QRS Dur : 080 ms QT Int : 356 ms P-R-T Axes : 072 059 060 degrees QTc Int : 418 ms Normal sinus rhythm Nonspecific ST abnormality Abnormal ECG Confirmed by LEE HUITRON, RAFFY ([id number]), editorial cartoonist VICKEY ROSS ([id number]) on 10/06/2019 2:58:33 PM Referred By: Rodolfo Stevenson Confirmed By:RAFFY HOWARD MD
[2019-09-28 11:55] LABS: Bedside Glucose 130 mg/dL (70-110)
--- NOTE | 2019-09-28 12:15 | CT_ITS ---
STUDY: CTA CHEST REASON FOR EXAM: Male, 69 years old. ? PE -- DYSPNEA W/ EXERTION RADIATION DOSAGE (If Supplied By Facility): CTDIvol = ( 16.12 ) mGy, DLP = ( 877.40 ) mGycm TECHNIQUE: The examination was performed with the intravenous administration of 100CC ISOVUE 370. Post-processing of the angiographic images was performed, with multiplanar reformation and 3D reconstruction. Individualized dose optimization techniques were used for this CT. Motion artifact is present. COMPARISON: CT of the chest dated October 15, 2018 FINDINGS: Normal enhancement of the main pulmonary artery and right and left pulmonary arteries. Normal enhancement of the bilateral peripheral pulmonary arteries. There is no demonstrated pulmonary embolism. Normal thoracic aorta and visualized great vessels. There is no demonstrated aortic dissection. Normal heart size and pericardium. Normal mediastinum. Normal hilar regions. Normal visualized trachea and bronchi. The lungs are well expanded. No demonstrated consolidation or pleural effusion. No lung nodules are seen. Both lungs are mildly hyperinflated compatible with COPD. Normal pleura. Normal chest wall structures. There are degenerative changes of thoracic spine. No demonstrated acute or significant abnormality of the visualized upper abdominal structures. CT/CTA Chest W/WO Contrast IMPRESSION: 1. No demonstrated pulmonary embolism or arterial dissection. 2. No demonstrated consolidation or pleural effusion. No lung nodules are seen. Both lungs are mildly hyperinflated compatible with COPD. Electronically Signed: Agustin Mahmood MD at 17:38 EDT , Service support ,
[2019-09-28 12:29] LABS: Lactic Acid 1.5 mmol/L (0.4-1.9)
[2019-09-28 12:32] LABS: Absolute Lymphocyte Count 1.48 X10^3/uL (0.83-4.51); Absolute Neutrophil Count 7.9 X10^3/uL (2.0-7.7); Basophil# 0.04 X10^3/uL; Basophil% 0.4 % (0-1); Eosinophil# 0.01 X10^3/uL; Eosinophils% 0.1 % (0-5); Hematocrit 43.6 % (40-54); Hemoglobin 13.7 g/dL (13.0-16.5); Lymphocyte # 1.48 X10^3/ul (4.0); Lymphocyte % 14.6 % (19-41); Mean Corp Hgb Conc 31.4 g/dL (32-36); Mean Corpuscular Hgb 30.2 pg (27.0-32.0); Mean Platelet Vol. 11.6 fl (6.2-12.0); Monocyte# 0.57 X10^3/uL; Monocyte% 5.6 % (0-10); NRBC Flagged by Analyzer 0 % (0-5); Neutrophil # 7.88 X10^3/uL (2.7-7.7); POSITIVE COUNT YES; Platelet Count 137 K/mm3 (150-450); RBC Distribution Width CV 14.3 % (11.6-14.6); RBC Distribution Width SD 50.6 fl (35.1-43.9); Red Blood Count 4.54 M/mm3 (4.6-6.2); White Blood Count 10.1 K/mm3 (4.4-11.0)
[2019-09-28 12:35] LABS: ALB/GLOB Ratio 1.1 RATIO (0.9-2.4); AST(SGOT) 32 U/L (15-37); Alanine Aminotransfer ALT/SGPT 35 U/L (16-61); Albumin, Serum 3.6 g/dL (3.2-5.0); Alkaline Phosphatase 59 U/L (45-117); Anion Gap 6 (5-15); BUN 22 mg/dL (7-18); BUN/Creat Ratio 22.3 RATIO (10-20); Chloride 108 mmol/L (98-107); Creatinine, Serum 0.99 mg/dL (0.70-1.30); EST Glomerular Filtration Rate 79 mL/min (>60); Est Glom Filt Rate - Afr Amer 96 mL/min (>60); Estimated Creatinine Clearance 66.21 ml/min; Globulin 3.2 g/dL (2.2-4.2); Glucose 104 mg/dL (74-106); Magnesium 2.1 mg/dL (1.6-2.6); Potassium 3.9 mmol/L (3.5-5.1); Protein, Total 6.8 g/dL (6.4-8.2); Sodium Level 143 mmol/L (136-145)
[2019-09-28 12:40] LABS: International Normalized Ratio 1.1; Prothrombin Time (Protime)PT. 13.3 SECONDS (11.7-14.9)
[2019-09-28 12:49] LABS: Differential Indicated SCAN CRITERIA MET
[2019-09-28] MEDS: Azithromycin 250 MG Tablet PO (12:49)
[2019-09-28 12:54] LABS: D-Dimer Quantitative (DVT/PE) 0.92 FEU/ug/m (0.27-0.49)
--- NOTE | 2019-09-28 13:05 | PCM.CON.CC ---
Reason for Consult Date of Consultation: 09/28/19 Reason for Consultation: Dyspnea History of Present Illness: The patient is a 69-year-old male, with a history as outlined below, who presented as a direct admission from the pulmonary medicine clinic over concerns for worsening dyspnea. The patient does have a history of stage IV COPD, chronic hypoxemic respiratory failure, obstructive sleep apnea and pulmonary hypertension. The patient has been treated with steroids, antibiotics and Lasix over the last 3 to 4 weeks, but his shortness of breath has persisted. The patient is currently prescribed nocturnal Pap therapy with a BiPAP pressure support of 12/5 centimeters of water. The patient does report that he gets short of breath with very little physical activity and has noticed that his heart rate increases with activity, despite being on a beta-paulino. The patient does report that he is gained approximately 60 pounds over the last 2 years. On presentation to the ICU, the patient was noted to be afebrile and hemodynamically stable. Laboratory evaluation revealed no evidence of a leukocytosis. D-dimer was mildly elevated to 0.92. Chemistry profile was unrevealing. Troponin was negative. Procalcitonin was within normal limits. Lactate was within normal limits. Chest x-ray revealed no focal infiltrate or consolidation. The patient was subsequently placed in the intensive care unit to facilitate COVID testing. Past Medical History Past Medical History (Chronic Problems): Chronic Problems (Last Reviewed 09/28/19 @ 11:[address] 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 (Chronic) Nonrheumatic tricuspid (valve) insufficiency (Chronic) Chronic hypoxemic respiratory failure (Chronic) SCOTT (obstructive sleep apnea) (Chronic) Pulmonary HTN (Chronic) Tobacco abuse (Chronic) Spinal stenosis (Chronic) Sprain and strain of lumbosacral joint/ligament (Chronic) H/O heart artery stent (Chronic) 1999 S/P lumbar spinal fusion (Chronic) L1-L5 05/2014 Tobacco dependence in remission (Chronic) LDCT due in October 2019 Severe persistent asthma (Chronic) Allergic asthma with acute exacerbation (Chronic) SCOTT (obstructive sleep apnea) (Chronic) Stage 4 very severe COPD by GOLD classification (Chronic) FEV1 31% CAD (coronary artery disease) (Chronic) COPD (chronic obstructive pulmonary disease) (Chronic) Medical History: Medical History (Last Reviewed 05/20/20 @ 11:[address] Rodolfo Stevenson MD) Stage 4 very severe COPD by GOLD classification (Chronic) J44.9 Nonrheumatic tricuspid (valve) insufficiency (Chronic) I36.1 Chronic hypoxemic respiratory failure (Chronic) J96.11 SCOTT (obstructive sleep apnea) (Chronic) G47.33 Pulmonary HTN (Chronic) I27.20 Tobacco abuse (Chronic) Z72.0 Spinal stenosis (Chronic) M48.00 Sprain and strain of lumbosacral joint/ligament (Chronic) S33.5XXA Acute bronchitis (Resolved) J20.9 Severe persistent asthma (Chronic) J45.50 Personal history of nicotine dependence (Acute) Z87.891 Asthma (Acute) J45.909 Allergic asthma with acute exacerbation (Chronic) J45.901 PND (post-nasal drip) (Acute) R09.82 PINZON (dyspnea on exertion) (Acute) R06.09 SCOTT (obstructive sleep apnea) (Chronic) G47.33 Stage 4 very severe COPD by GOLD classification (Chronic) J44.9 FEV1 31% Acute exacerbation of chronic obstructive pulmonary disease (Acute) J44.1 CAD (coronary artery disease) (Chronic) I25.10 COPD (chronic obstructive pulmonary disease) (Chronic) J44.9 Acute respiratory failure with hypoxia (Resolved) J96.01 Wheezing R06.2 Chest pain, unspecified R07.9 PINZON (dyspnea on exertion) R06.09 Hypersomnia G47.10 Oxygen desaturation R09.02 Allergies No Known Allergies Allergy (Verified 09/28/19 10:59) Home Medications: Ambulatory Orders Medication Instructions Recorded Albuterol Inhaler [Ventolin Hfa] 2 puff INHALATION Q6H PRN PRN 05/16/16 Aspirin [Aspirin, Baby] 81 mg PO DAILY@0800 tab.chew 05/24/16 guaifenesin 600 mg tablet, 600 mg PO Q12H PRN 05/14/17 extended release 12 hr fluticasone propionate 50 2 spray INTRANASAL QDAY #16 g 07/23/17 mcg/actuation nasal spray,suspension albuterol sulfate 2.5 mg INHALATION BID #180 ea 11/27/17 atenolol 25 mg tablet 25 mg PO DAILY 02/09/18 Portable Oxygen Concentrator #1 ea 03/16/18 budesonide 0.5 mg/2 mL suspension 2 ml INHALATION Q12H #60 ea 09/29/18 for nebulization furosemide 40 mg tablet 40 mg PO DAILY PRN #30 tab 09/29/18 potassium chloride 20 mEq 20 meq PO DAILY PRN #30 tab 09/29/18 tablet,extended release loratadine 10 mg tablet 10 mg PO QDAY #90 tab 10/27/18 ipratropium 0.5 mg-albuterol 3 mg 3 ml INHALATION Q6H PRN #180 ml 02/02/19 (2.5 mg base)/3 mL nebulization soln azithromycin 250 mg tablet 250 mg PO QMWF #12 tab 03/22/19 prednisone 10 mg tablet 20 mg PO QDAY #60 tab 03/22/19 azelastine 137 mcg (0.1 %) nasal 1 spray INTRANASAL BID #30 ml 09/01/19 spray aerosol Alendronate Sodium 70 mg PO TH 09/28/19 Benzonatate 200 mg PO QODAY 09/28/19 Calcium Carbonate [Calcium] 1,000 mg PO DAILY 09/28/19 Ergocalciferol (Vitamin D2) 50,000 unit PO QMONTH 09/28/19 [Vitamin D2] Lorazepam [Ativan] 0.5 mg PO QHS PRN PRN 09/28/19 Montelukast [Singulair] 10 mg PO DAILY 09/28/19 Roflumilast [Daliresp] 500 mcg PO QODAY 09/28/19 Tamsulosin HCl 0.8 mg PO DAILY 09/28/19 morphine solution (IR) [Roxanol 0.125 mg PO TID PRN PRN 09/28/19 (IR oral solution)] Surgical History: Surgical History (Last Reviewed 09/28/19 @ 11:[address] Rodolfo Stevenson MD) H/O heart artery stent (Chronic) Z95.5 1999 S/P lumbar spinal fusion (Chronic) Z98.1 L1-L5 05/2014 LHC d subsequent Cyper DEX to mid cx per Dr. [place] at [facility] (Resolved) 2006 S/P left rotator cuff repair (Resolved) Z98.890 10/2015 H/O cardiac catheterization (Resolved) Z98.890 09/08/2016 Surgical History: - - shoulder, back, heart stent Psychiatric History: - Smoking Status: Former smoker - *Family History Maternal Family History: Family History (Last Reviewed 09/28/19 @ 11:[address] Rodolfo Stevenson MD) Father Heart disease History Items: - - mother still living at 91 Paternal Family History: Family History (Last Reviewed 09/28/19 @ 11:[address] Rodolfo Stevenson MD) Father Heart disease History Items: Heart Disease Review of Systems Constitutional: Reports: Weight Change. Denies: Chills, Fever, Night Sweats Eyes: Denies: Blurred vision, Double vision HEENT: Denies: Head Aches, Sinus Congestion, Sinus Drainage Cardiovascular: Reports: Edema. Denies: Chest Pain Respiratory: Reports: Cough, Shortness of Breath, Wheezing. Denies: Sputum production Gastrointestinal: Denies: Abdominal Pain, Nausea, Vomiting Genitourinary: Denies: Dysuria Musculoskeletal: Denies: Joint Pain, Joint Tenderness Skin: Denies: Rash, Wounds Neurological: Denies: Numbness, Tingling, Focal weakness Psychiatric: Denies: Anxiety, Depression, Homicidal Ideations, Suicidal Ideations Hematologic/ Lymphatic: Denies: Easy Bruising, Easy Bleeding Objective: The patient's most recent lab work, culture data and imaging studies have all been personally reviewed. COVID testing is pending. - Physical Exam Vitals/I&O's: Vital Signs Temp Pulse Resp BP Pulse Ox 97.2 F L 72 24 H 137/90 H 96 09/28/19 11:00 09/28/19 11:00 09/28/19 11:00 09/28/19 11:00 09/28/19 11:00 Oxygen Flow Rate (L/min) 1 Oxygen Delivery Method Nasal Cannula Weight: 234 lb 9.149 oz Body Mass Index (BMI) 35.6 General: Alert, Oriented x3, Cooperative, No apparent distress HEENT: Atraumatic, PERRLA, Normocephalic Oral: No Gingival or Mucosal Lesions/ Ulcerations Neck: Supple, No Nodes, Trachea Midline Lungs: No rhonchi, No wheeze, No rales, Diminished, - - Prolonged expiratory phase. No conversational dyspnea. Cardiovascular: Regular rate, Regular Rhythm, Normal S1, Normal S2, No murmurs Abdomen: Bowel Sounds Present, Soft, Non Tender, Obese Extremities: No clubbing, No cyanosis, Edema Skin: No breakdown Musculoskeletal: No Muscle Wasting Lymphatic: No Cervical, Supraclavicular, or Inguinal Adenopathy Neurological: Neuro grossly intact Psych/Mental Status: Normal Affect, Appropriate Labs (Last 48 Hours) 09/28/19 09/28/19 09/28/19 11:26 11:50 11:50 WBC 10.1 RBC 4.54 L Hgb 13.7 Hct 43.6 MCV 96.0 H MCH 30.2 MCHC 31.4 L RDW Std Deviation 50.6 H RDW Coeff of Alexa 14.3 Plt Count 137 L MPV 11.6 Immature Gran % (Auto) 1.300 H Neut % (Auto) 78.0 H Lymph % (Auto) 14.6 L Esmeralda % (Auto) 5.6 Eos % (Auto) 0.1 Baso % (Auto) 0.4 Absolute Neuts (auto) 7.9 H Absolute Lymphs (auto) 1.48 Nucleated RBC % 0 Platelet Estimate SLT DEC PT 13.3 INR 1.1 D-Dimer Quant (PE/DVT) 0.92 H* Sodium Potassium Chloride Carbon Dioxide Anion Gap BUN Creatinine Estim Creat Clear Calc Est GFR (MDRD) Af Amer Est GFR (MDRD) Non-Af BUN/Creatinine Ratio Glucose Lactic Acid Calcium Magnesium Total Bilirubin AST ALT Alkaline Phosphatase Troponin I B-Natriuretic Peptide Total Protein Albumin Globulin Albumin/Globulin Ratio Procalcitonin POC Glucose 130 H 09/28/19 09/28/19 09/28/19 11:50 11:50 11:50 WBC RBC Hgb Hct MCV MCH MCHC RDW Std Deviation RDW Coeff of Alexa Plt Count MPV Immature Gran % (Auto) Neut % (Auto) Lymph % (Auto) Esmeralda % (Auto) Eos % (Auto) Baso % (Auto) Absolute Neuts (auto) Absolute Lymphs (auto) Nucleated RBC % Platelet Estimate PT Cancelled INR Cancelled D-Dimer Quant (PE/DVT) Sodium 143 Potassium 3.9 Chloride 108 H Carbon Dioxide 29.0 Anion Gap 6 BUN 22 H Creatinine 0.99 Estim Creat Clear Calc 66.21 Est GFR (MDRD) Af Amer 96 Est GFR (MDRD) Non-Af 79 BUN/Creatinine Ratio 22.3 H Glucose 104 Lactic Acid Calcium 9.0 Magnesium 2.1 Total Bilirubin 0.50 AST 32 ALT 35 Alkaline Phosphatase 59 Troponin I < 0.015 B-Natriuretic Peptide Pending Total Protein 6.8 Albumin 3.6 Globulin 3.2 Albumin/Globulin Ratio 1.1 Procalcitonin POC Glucose 09/28/19 09/28/19 11:50 11:50 WBC RBC Hgb Hct MCV MCH MCHC RDW Std Deviation RDW Coeff of Alexa Plt Count MPV Immature Gran % (Auto) Neut % (Auto) Lymph % (Auto) Esmeralda % (Auto) Eos % (Auto) Baso % (Auto) Absolute Neuts (auto) Absolute Lymphs (auto) Nucleated RBC % Platelet Estimate PT INR D-Dimer Quant (PE/DVT) Sodium Potassium Chloride Carbon Dioxide Anion Gap BUN Creatinine Estim Creat Clear Calc Est GFR (MDRD) Af Amer Est GFR (MDRD) Non-Af BUN/Creatinine Ratio Glucose Lactic Acid 1.5 Calcium Magnesium Total Bilirubin AST ALT Alkaline Phosphatase Troponin I B-Natriuretic Peptide Total Protein Albumin Globulin Albumin/Globulin Ratio Procalcitonin < 0.04 POC Glucose Clinical Impression(s) from Imaging Studies Chest X-Ray 09/28/19 10:54 IMPRESSION: Poor inspiration with some bibasilar atelectasis. Electronically Signed: Kehinde Walls MD at 11:22 EDT Tel , Service support , Current Medications Acetaminophen (Tylenol) 650 mg PO Q6H PRN PRN PRN Reason: Pain Score 1-10/Temp > 100.7 F Al Hydroxide/Mg Hydroxide (Mylanta Ii) 30 ml PO Q6H PRN PRN PRN Reason: Gastric Burning Albuterol Sulfate (Ventolin Aerosols) 2.5 mg INHALATION Q2H PRN PRN PRN Reason: SOB/Wheezing Aspirin (Aspirin, Baby) 81 mg PO DAILY@0800 [facility] Atenolol (Tenormin (Beta Paulino)) 25 mg PO DAILY [facility] Azelastine HCl (Astelin) 1 spray NASAL BID [facility] Azithromycin (Zithromax) 250 mg PO MoWeFr@1000 [facility] Last Admin: 09/28/19 12:49 Dose: 250 mg Documented by: Calcium Carbonate (Os-Winston 500) 1,000 mg PO DAILYCM [facility] Fluticasone Propionate (Flonase Nasal Cubero) 2 spray NASAL DAILY [facility] Furosemide (Lasix) 40 mg PO DAILY PRN PRN Reason: edema Guaifenesin (Robitussin) 20 ml PO Q4H PRN PRN PRN Reason: COUGH Guaifenesin (Mucinex) 600 mg PO Q12H PRN PRN Reason: coughing Sodium Chloride () 250 mls @ 15 mls/hr IV .[id number] PRN PRN Reason: Saline Flush Sodium Chloride () 250 mls @ 15 mls/hr IV .[id number] PRN PRN Reason: Additional IVPB Infusion Loratadine (Claritin) 10 mg PO DAILY [facility] Lorazepam (Ativan) 0.5 mg PO QHS PRN PRN PRN Reason: ANXIETY Magnesium Hydroxide (Milk Of Magnesia) 30 ml PO DAILY PRN PRN PRN Reason: Constipation Melatonin (Melatonin) 3 mg PO QHS PRN PRN PRN Reason: INSOMNIA Montelukast Sodium (Singulair) 10 mg PO DAILY [facility] Nitroglycerin (Nitrostat) 0.4 mg SUBLINGUAL Q5M PRN PRN Reason: CARDIAC/CHEST PAIN Non-Formulary Medication (Benzonatate) 200 mg PO QODAY [facility] Ondansetron HCl (Zofran) 4 mg IV Q8H PRN PRN PRN Reason: NAUSEA/VOMITING Oxycodone HCl (Oxyir) 5 mg PO Q4H PRN PRN PRN Reason: Pain Score 4-5/10 Oxycodone HCl (Oxyir) 10 mg PO Q4H PRN PRN PRN Reason: Pain Score 6-10/10 Potassium Chloride (K-Dur) 20 meq PO DAILY PRN PRN Reason: lasix use Prednisone () 20 mg PO DAILY@0800 [facility] Promethazine HCl (Phenergan) 25 mg IM Q6H PRN PRN PRN Reason: Breakthrough Nausea/Vomiting Sodium Chloride () 10 - 40 ml IV UD PRN PRN Reason: SALINE FLUSH Tamsulosin HCl (Flomax) 0.8 mg PO DAILY [facility] Assessment/Plan RECOMMENDATIONS: 1. Obtain CTA chest to evaluate for PE. 2. Obtain repeat echocardiogram. 3. Wean supplemental oxygen to maintain saturations at or above 90%. 4. Start scheduled duo nebs and budesonide. Continue baseline, outpatient prednisone regimen. 5. Continue nocturnal Pap therapy. 6. Encourage incentive spirometer use and mobilize patient as tolerated. IMPRESSIONS: 1. Dyspnea/COPD-asthma overlap syndrome/chronic hypoxemic respiratory failure Unclear etiology at this time. It does appear that the patient's complaints of dyspnea seem out of proportion to any objective data that we have. He is currently maintaining appropriate oxygen saturations on minimal O2. I do suspect that his weight and deconditioning are likely a large component of his symptomology. Regardless, we will plan to obtain CTA chest to evaluate for the presence of venous thromboembolic disease. In addition, a repeat echocardiogram will be obtained to assess the patient's underlying cardiac function. Low clinical index suspicion for underlying COVID and/or other pulmonary infectious process. Plan to start scheduled bronchodilators and budesonide. The patient's chronic steroid therapy will be continued. If the patient's work-up is negative, may need to consider cardiac stress test. 2. Coronary artery disease/possible heart failure with preserved ejection fraction The patient's last surface echocardiogram from 2016 revealed intact systolic function with an ejection fraction of 65%. Plan to obtain repeat echocardiogram to evaluate for any pulmonary hypertension and/or cor pulmonale. 3. Morbid obesity/hypertension/hyperlipidemia/BPH/obstructive sleep apnea Complicates care, management, recovery and prognosis. Continue home medications as indicated. Continue nocturnal noninvasive positive pressure ventilatory support. This note was generated with [employer] dictation software. It may contain incorrect words, spelling, and punctuation that were not noted in checking the note before signing. Inpatient E&M: 83194 Init Hosp L3
[2019-09-28 13:09] LABS: Procalcitonin < 0.04 ng/mL (0.00-0.09)
[2019-09-28 13:11] LABS: Platelet Estimate SLT DEC (ADEQ)
--- NOTE | 2019-09-28 13:14 | ECHOD_ITS ---
Reason For Study: DYSPNEA/SOB Procedure This was a 2D Doppler, Color Flow transthoracic echocardiogram. The study was technically difficult. Due to body habitus and COPD. Exam begins with apical views. Exam performed portable in ICU/CCU. Left Ventricle Normal LV size. The estimated ejection fraction is 65 %. Normal diastology for age. No regional wall motion abnormalities noted. Right Ventricle Normal RV size. Normal systolic function. Atria Normal left atrium. Normal right atrium. No doppler evidence for ASD. Mitral Valve There is no mitral valve stenosis. No mitral valve insufficiency. Tricuspid Valve There is no tricuspid stenosis. Trivial tricuspid valve insufficiency. Unable to estimate RV systolic pressure due to insufficient tricuspid regurgitant envelope. Aortic Valve Trisinus/trileaflet aortic valve. There is no aortic stenosis. No aortic valve insufficiency. Pulmonic Valve There is no pulmonic valvular stenosis. No pulmonic valve insufficiency. Great Vessels Normal aortic root. Pericardium/Pleural No pericardial effusion. MMode/2D Measurements & Calculations LVIDd: 4.7 cm IVSd: 1.2 cm Ao root diam: 3.3 cm LVIDs: 2.9 cm LVPWd: 1.2 cm LA dimension: 3.5 cm FS: 38.2 % LAV(MOD-bp): 49.4 ml LA A4 area: 16.3 cm2 RA A4 area: 16.2 cm2 LAV(MOD-bp) Indexed: 22.6 ml/m2 LAV(MOD-sp2): 55.7 ml LAV(MOD-sp4): 43.0 ml Doppler Measurements & Calculations MV E max valdemar: 61.1 cm/sec Lat Peak E' Valdemar: 7.9 cm/sec Med Peak E' Valdemar: 6.5 cm/sec MV A max valdemar: 70.6 cm/sec E/E' lat: 7.8 E/E' med: 9.5 MV E/A: 0.87 Ao V2 max: 121.5 cm/sec LV V1 max: 94.3 cm/sec PA V2 max: 91.0 cm/sec Ao max P.9 mmHg LV V1 max P.6 mmHg TR max valdemar: 305.3 cm/sec TR max P.3 mmHg Interpretation Summary The study was technically difficult. The estimated ejection fraction is 65 %. Normal diastology for age. The study was technically difficult. Ordering Physician: Bhavesh Vallejo Referring Physician: Guerrero Bateman Performed By: Gina Marques, JUDIE, RVT
--- NOTE | 2019-09-28 13:48 | VDLE_ITS ---
Reason For Study: Elevated D-dimer RIGHT LEFT Right CFV, SFJ, FV, PopV are compressible. Left CFV, SFJ, FV, PopV are compressible. GSV is normal. GSV is normal. T/P Trunk is compressible. T/P Trunk is compressible. PTV is compressible. PTV is compressible. RT PerV is compressible. LT PerV is compressible. Procedure Exam performed portable in ICU/CCU. The exam was abbreviated due to the COVID 19 protocol. A preliminary report was called and/or faxed to [employer]. Interpretation Summary No evidence for acute deep venous thrombosis bilateral lower extremities with patent and compressible bilateral great saphenous veins. Abbreviated COVID 19 protocol Ordering Physician: Rodolfo Stevenson Referring Physician: Guerrero Bateman Performed By: Nusrat Washburn RVT
[2019-09-28 14:41] LABS: BNP,B-Type NATRIURETIC PEPTIDE 10.7 pg/mL (0-100)
--- NOTE | 2019-09-28 15:43 | CHAPLAIN ---
Type of Pastoral Visit ___ Initial Visit ___ Follow-up Visit ___ On-call Visit ___ General Patient Visit ___ Spiritual Assessment ___ Family Conference ___ Bereavement ___ Rapid Response ___ Code Blue ___ Other (describe below) Pastoral Care Referral From ___ Patient ___ Family ___ Nurse ___ Physician ___ Decorating Machine Tender ___ Security Control Room Officer ___ Other (describe below) Sacrament/Intervention ___ Active listening ___ Anointing ___ Faith ___ Bereavement ___ Communion ___ Noemi exploration ___ ___ Life review ___ Prayer ___ Reconciliation ___ Sacrament of Sick ___ Supportive presence ___ Wedding ___ Other (describe below) Pastoral Comments Attempted to reach patient by phone for conversation and offer of support; patient going to CT scan at first attempt; patient sleeping and on bi-pap at second attempt so this project coach was unable to make connection
[2019-09-28] MEDS: Budesonide Respules 0.5 MG/2 ML AMPUL.NEB. INHALATION (16:34)
[2019-09-28] MEDS: Ipratropium/Albuterol Sulfate 3 ML AMPUL.NEB INHALATION (16:34)
[2019-09-28 18:00] LABS: Bedside Glucose 142 mg/dL (70-110)
[2019-09-28] MEDS: Albuterol 2.5 MG/3 ML VIAL.NEB. INHALATION (18:54)
--- NOTE | 2019-09-28 20:09 | NURSING ---
Telephone report received from Jose Kelley RN. This RN will resume care of pt when he arrives to PCU 125.
--- NOTE | 2019-09-28 20:46 | NURSING ---
Pt arrived to [facility] @ 2022. Pt sitting up in chair at this time. VS taken.
[2019-09-28] MEDS: Azelastine HCl NASAL.SRY 1 SPRAY NASAL (21:15)
[2019-09-29] VITALS (9 sets, daily range): BP systolic 105–136; BP diastolic 65–78; PULSE 62–86; RESP 16–18; TEMP 36.5–37; O2SAT 94–98
[2019-09-29 00:56] LABS: Bedside Glucose 128 mg/dL (70-110)
[2019-09-29] MEDS: Enoxaparin 40 MG/0.4 ML Syringe SC (05:53)
[2019-09-29] MEDS: Ipratropium/Albuterol Sulfate 3 ML AMPUL.NEB INHALATION ×2 (06:45→13:27)
[2019-09-29 06:58] LABS: Absolute Lymphocyte Count 1.28 X10^3/uL (0.83-4.51); Absolute Neutrophil Count 5.3 X10^3/uL (2.0-7.7); Basophil# 0.03 X10^3/uL; Basophil% 0.4 % (0-1); Eosinophil# 0.02 X10^3/uL; Eosinophils% 0.3 % (0-5); Hematocrit 42.6 % (40-54); Hemoglobin 13.2 g/dL (13.0-16.5); Lymphocyte # 1.28 X10^3/ul (4.0); Lymphocyte % 17.8 % (19-41); Mean Corpuscular Hgb 29.9 pg (27.0-32.0); Mean Corpuscular Volume 96.4 fL (80-94); Monocyte# 0.47 X10^3/uL; Monocyte% 6.5 % (0-10); NRBC Flagged by Analyzer 0 % (0-5); Neutrophil # 5.32 X10^3/uL (2.7-7.7); Neutrophil % 73.8 % (47-70); Platelet Count 149 K/mm3 (150-450); RBC Distribution Width CV 14.6 % (11.6-14.6); RBC Distribution Width SD 51.7 fl (35.1-43.9); Red Blood Count 4.42 M/mm3 (4.6-6.2); White Blood Count 7.2 K/mm3 (4.4-11.0)
--- NOTE | 2019-09-29 07:20 | NURSING ---
This AM, pt c/o shortness of breath and had labored breathing. This RN increased patient oxygen to 4L nasal cannula and called respiratory therapy for a breathing treatment. Pt reported feeling improved during breathing treatment. During handoff, pt was resting in be with eyes closed.
--- NOTE | 2019-09-29 07:21 | PN_ITS ---
Subjective: The patient was seen and examined at the bedside this morning. Events from the last 24 hours have been reviewed. The patient is currently afebrile, hemodynamically stable and maintaining appropriate oxygen saturations on 2 L/min via nasal cannula. The patient tolerated BiPAP for most of the night with a pressure support of 12/6 centimeters water. The patient continues to report the presence of exertional shortness of breath. His work-up to date including lower extremity Dopplers, echocardiogram and CTA chest have all been unremarkable. I did call and speak with Dr. Horner of cardiology, who previously performed his cardiac catheterization in 2017. He recommended that the patient be transitioned from atenolol to long-acting Cardizem 120mg on discharge, with plans to follow-up in the cardiology clinic. Objective: The patient's most recent lab work, culture data and imaging studies have all been personally reviewed. Lower extremity Doppler study was negative. Surface echocardiogram revealed normal LV size and function with an ejection fraction of 65%. There was no evidence of diastolic dysfunction or pulmonary hypertension. CTA chest revealed no evidence for pulmonary embolism. Lung green were hyperinflated, nevertheless. - Physical Exam Vitals/I&O's: Vital Signs Temp Pulse Resp BP Pulse Ox 97.7 F L 81 18 108/66 94 09/29/19 02:49 09/29/19 06:50 09/29/19 02:49 09/29/19 02:49 09/29/19 02:49 Oxygen Flow Rate (L/min) 2 Oxygen Delivery Method Nasal Cannula Weight: 234 lb 9.149 oz Body Mass Index (BMI) 35.6 Intake and Output for Last 24 Hours 09/27/19 09/28/19 09/29/19 23:59 23:59 23:59 Intake Total 1090 / 1090 0 / 0 Output Total 400 / 400 Balance 690 / 690 0 / 0 General: Alert, Oriented x3, Cooperative, No apparent distress HEENT: Atraumatic, Normocephalic Oral: No Gingival or Mucosal Lesions/ Ulcerations Neck: Supple, No Nodes, Trachea Midline Lungs: No rhonchi, No wheeze, No rales, Diminished Cardiovascular: Regular rate, Regular Rhythm, Normal S1, Normal S2, No murmurs Abdomen: Bowel Sounds Present, Soft, Non Tender, Obese Extremities: No clubbing, No cyanosis, Edema Skin: No breakdown Musculoskeletal: No Tenderness to Palpation of Joints or Extremities, No Muscle Wasting Lymphatic: No Cervical, Supraclavicular, or Inguinal Adenopathy Neurological: Cranial nerves II-XII grossly intact, Neuro grossly intact Psych/Mental Status: Alert and oriented to time, place, person, mood and affect Labs (Last 48 Hours) 09/28/19 09/28/19 09/28/19 11:26 11:50 11:50 WBC 10.1 RBC 4.54 L Hgb 13.7 Hct 43.6 MCV 96.0 H MCH 30.2 MCHC 31.4 L RDW Std Deviation 50.6 H RDW Coeff of Alexa 14.3 Plt Count 137 L MPV 11.6 Immature Gran % (Auto) 1.300 H Neut % (Auto) 78.0 H Lymph % (Auto) 14.6 L [place] % (Auto) 5.6 Eos % (Auto) 0.1 Baso % (Auto) 0.4 Absolute Neuts (auto) 7.9 H Absolute Lymphs (auto) 1.48 Nucleated RBC % 0 Platelet Estimate SLT DEC PT 13.3 INR 1.1 D-Dimer Quant (PE/DVT) 0.92 H* Sodium Potassium Chloride Carbon Dioxide Anion Gap BUN Creatinine Estim Creat Clear Calc Est GFR (MDRD) Af Amer Est GFR (MDRD) Non-Af BUN/Creatinine Ratio Glucose Lactic Acid Calcium Magnesium Total Bilirubin AST ALT Alkaline Phosphatase Troponin I B-Natriuretic Peptide Total Protein Albumin Globulin Albumin/Globulin Ratio Procalcitonin COVID-19 (TAN) POC Glucose 130 H 09/28/19 09/28/19 09/28/19 11:50 11:50 11:50 WBC RBC Hgb Hct MCV MCH MCHC RDW Std Deviation RDW Coeff of Alexa Plt Count MPV Immature Gran % (Auto) Neut % (Auto) Lymph % (Auto) [place] % (Auto) Eos % (Auto) Baso % (Auto) Absolute Neuts (auto) Absolute Lymphs (auto) Nucleated RBC % Platelet Estimate PT Cancelled INR Cancelled D-Dimer Quant (PE/DVT) Sodium 143 Potassium 3.9 Chloride 108 H Carbon Dioxide 29.0 Anion Gap 6 BUN 22 H Creatinine 0.99 Estim Creat Clear Calc 66.21 Est GFR (MDRD) Af Amer 96 Est GFR (MDRD) Non-Af 79 BUN/Creatinine Ratio 22.3 H Glucose 104 Lactic Acid Calcium 9.0 Magnesium 2.1 Total Bilirubin 0.50 AST 32 ALT 35 Alkaline Phosphatase 59 Troponin I < 0.015 B-Natriuretic Peptide 10.7 Total Protein 6.8 Albumin 3.6 Globulin 3.2 Albumin/Globulin Ratio 1.1 Procalcitonin COVID-19 (TAN) POC Glucose 09/28/19 09/28/19 09/28/19 11:50 11:50 13:05 WBC RBC Hgb Hct MCV MCH MCHC RDW Std Deviation RDW Coeff of Alexa Plt Count MPV Immature Gran % (Auto) Neut % (Auto) Lymph % (Auto) [place] % (Auto) Eos % (Auto) Baso % (Auto) Absolute Neuts (auto) Absolute Lymphs (auto) Nucleated RBC % Platelet Estimate PT INR D-Dimer Quant (PE/DVT) Sodium Potassium Chloride Carbon Dioxide Anion Gap BUN Creatinine Estim Creat Clear Calc Est GFR (MDRD) Af Amer Est GFR (MDRD) Non-Af BUN/Creatinine Ratio Glucose Lactic Acid 1.5 Calcium Magnesium Total Bilirubin AST ALT Alkaline Phosphatase Troponin I B-Natriuretic Peptide Total Protein Albumin Globulin Albumin/Globulin Ratio Procalcitonin < 0.04 COVID-19 (TAN) Cancelled POC Glucose 09/28/19 09/28/19 09/28/19 15:15 17:36 17:50 WBC RBC Hgb Hct MCV MCH MCHC RDW Std Deviation RDW Coeff of Alexa Plt Count MPV Immature Gran % (Auto) Neut % (Auto) Lymph % (Auto) [place] % (Auto) Eos % (Auto) Baso % (Auto) Absolute Neuts (auto) Absolute Lymphs (auto) Nucleated RBC % Platelet Estimate PT INR D-Dimer Quant (PE/DVT) Sodium Potassium Chloride Carbon Dioxide Anion Gap BUN Creatinine Estim Creat Clear Calc Est GFR (MDRD) Af Amer Est GFR (MDRD) Non-Af BUN/Creatinine Ratio Glucose Lactic Acid Calcium Magnesium Total Bilirubin AST ALT Alkaline Phosphatase Troponin I < 0.015 < 0.015 B-Natriuretic Peptide Total Protein Albumin Globulin Albumin/Globulin Ratio Procalcitonin COVID-19 (TAN) POC Glucose 142 H 09/28/19 09/29/19 09/29/19 21:19 06:37 06:37 WBC 7.2 RBC 4.42 L Hgb 13.2 Hct 42.6 MCV 96.4 H MCH 29.9 MCHC 31.0 L RDW Std Deviation 51.7 H RDW Coeff of Alexa 14.6 Plt Count 149 L MPV 9.0 Immature Gran % (Auto) 1.200 H Neut % (Auto) 73.8 H Lymph % (Auto) 17.8 L [place] % (Auto) 6.5 Eos % (Auto) 0.3 Baso % (Auto) 0.4 Absolute Neuts (auto) 5.3 Absolute Lymphs (auto) 1.28 Nucleated RBC % 0 Platelet Estimate PT INR D-Dimer Quant (PE/DVT) Sodium 141 Potassium 3.8 Chloride 108 H Carbon Dioxide 29.0 Anion Gap 4 L BUN 24 H Creatinine 0.78 Estim Creat Clear Calc 65.55 Est GFR (MDRD) Af Amer 126 Est GFR (MDRD) Non-Af 104 BUN/Creatinine Ratio 30.8 H Glucose 96 Lactic Acid Calcium 8.5 Magnesium Total Bilirubin 0.50 AST 18 ALT 36 Alkaline Phosphatase 60 Troponin I B-Natriuretic Peptide Total Protein 6.6 Albumin 3.6 Globulin 3.0 Albumin/Globulin Ratio 1.2 Procalcitonin COVID-19 (TAN) POC Glucose 128 H Microbiology 09/28/19 13:05 Mucosa - Nasopharyngeal Coronavirus COVID-19 PCR - Final Clinical Impression(s) from Imaging Studies Chest X-Ray 09/28/19 10:54 IMPRESSION: Poor inspiration with some bibasilar atelectasis. Electronically Signed: Kehinde Walls MD at 11:22 EDT Tel , Service support , Chest CTA 09/28/19 12:15 IMPRESSION: 1. No demonstrated pulmonary embolism or arterial dissection. 2. No demonstrated consolidation or pleural effusion. No lung nodules are seen. Both lungs are mildly hyperinflated compatible with COPD. Electronically Signed: Agustin Mahmood MD at 17:38 EDT , Service support , Current Medications Acetaminophen (Tylenol) 650 mg PO Q6H PRN PRN PRN Reason: Pain Score 1-10/Temp > 100.7 F Al Hydroxide/Mg Hydroxide (Mylanta Ii) 30 ml PO Q6H PRN PRN PRN Reason: Gastric Burning Albuterol Sulfate (Ventolin Aerosols) 2.5 mg INHALATION Q2H PRN PRN PRN Reason: SOB/Wheezing Last Admin: 09/28/19 18:54 Dose: 2.5 mg Documented by: Albuterol/Ipratropium (Duoneb) 3 ml INHALATION Q6HWA.RT [facility] Last Admin: 09/28/19 16:34 Dose: 3 ml Documented by: Aspirin (Aspirin, Baby) 81 mg PO DAILY@0800 [facility] Atenolol (Tenormin (Beta Paulino)) 25 mg PO DAILY [facility] Azelastine HCl (Astelin) 1 spray NASAL BID [facility] Last Admin: 09/28/19 21:15 Dose: 1 spray Documented by: Azithromycin (Zithromax) 250 mg PO MoWeFr@1000 [facility] Last Admin: 09/28/19 12:49 Dose: 250 mg Documented by: Budesonide (Pulmicort Aerosol) 0.5 mg INHALATION BID.RT [facility] Last Admin: 09/28/19 16:34 Dose: 0.5 mg Documented by: Calcium Carbonate (Os-Winston 500) 1,000 mg PO DAILYCM [facility] Enoxaparin Sodium (Lovenox) 40 mg SC DAILY@0600 [facility] Last Admin: 09/29/19 05:53 Dose: 40 mg Documented by: Fluticasone Propionate (Flonase Nasal [place]) 2 spray NASAL DAILY [facility] Furosemide (Lasix) 40 mg PO DAILY PRN PRN Reason: edema Guaifenesin (Robitussin) 20 ml PO Q4H PRN PRN PRN Reason: COUGH Sodium Chloride () 250 mls @ 15 mls/hr IV .[id number] PRN PRN Reason: Saline Flush Sodium Chloride () 250 mls @ 15 mls/hr IV .[id number] PRN PRN Reason: Additional IVPB Infusion Loratadine (Claritin) 10 mg PO DAILY [facility] Lorazepam (Ativan) 0.5 mg PO QHS PRN PRN PRN Reason: ANXIETY Magnesium Hydroxide (Milk Of Magnesia) 30 ml PO DAILY PRN PRN PRN Reason: Constipation Melatonin (Melatonin) 3 mg PO QHS PRN PRN PRN Reason: INSOMNIA Montelukast Sodium (Singulair) 10 mg PO DAILY [facility] Nitroglycerin (Nitrostat) 0.4 mg SUBLINGUAL Q5M PRN PRN Reason: CARDIAC/CHEST PAIN Ondansetron HCl (Zofran) 4 mg IV Q8H PRN PRN PRN Reason: NAUSEA/VOMITING Oxycodone HCl (Oxyir) 5 mg PO Q4H PRN PRN PRN Reason: Pain Score 4-5/10 Oxycodone HCl (Oxyir) 10 mg PO Q4H PRN PRN PRN Reason: Pain Score 6-10/10 Potassium Chloride (K-Dur) 20 meq PO DAILY PRN PRN Reason: lasix use Prednisone () 20 mg PO DAILY@0800 C[facility] Promethazine HCl (Phenergan) 25 mg IM Q6H PRN PRN PRN Reason: Breakthrough Nausea/Vomiting Sodium Chloride () 10 - 40 ml IV UD PRN PRN Reason: SALINE FLUSH Tamsulosin HCl (Flomax) 0.8 mg PO DAILY [facility] Medical Necessity - Tobacco Use Smoking Status: Former smoker Assessment/Plan All Active Problems (Last Reviewed 09/28/19 @ 11:[address] Rodolfo Stevenson MD) Acute bronchitis (Resolved) LHC d subsequent Cyper DEX to mid cx per Dr. [place] at [facility] (Resolved) S/P left rotator cuff repair (Resolved) H/O cardiac catheterization (Resolved) Personal history of nicotine dependence (Acute) Asthma (Acute) PND (post-nasal drip) (Acute) PINZON (dyspnea on exertion) (Acute) Acute exacerbation of chronic obstructive pulmonary disease (Acute) Acute respiratory failure with hypoxia (Resolved) RECOMMENDATIONS: 1. Wean supplemental oxygen to maintain saturations at or above 90%. 2. Continue scheduled duo nebs and budesonide. Continue baseline, outpatient prednisone regimen. 3. Continue nocturnal Pap therapy. 4. Encourage incentive spirometer use and mobilize patient as tolerated. 5. Outpatient cardiology follow-up with Dr. Ofori. Rabago for discharge home from a pulmonary perspective. IMPRESSIONS: 1. Dyspnea/COPD-asthma overlap syndrome/chronic hypoxemic respiratory failure Unclear etiology at this time. It does appear that the patient's complaints of dyspnea seem out of proportion to any objective data that we have. He is currently maintaining appropriate oxygen saturations on minimal O2. I do suspect that his weight and deconditioning are likely a large component of his symptomology. Surface echocardiogram revealed intact systolic function without evidence of diastolic dysfunction or pulmonary hypertension. There was no evidence of lower extremity DVTs on Doppler study. CTA chest was unremarkable. Recommend continuing scheduled bronchodilator therapy per home regimen. Continue baseline, chronic steroid regimen. Given that the patient does have a history of coronary artery disease and has previously been cathed by Dr. Horner, I would recommend that he follow-up with cardiology after discharge. 2. History of coronary artery disease Prior cardiac catheterization by Dr. Horner from September 2016 revealed a patent stent in the mid circumflex, along with minimal disease in the LAD and mild disease in the right coronary artery. I did speak with Dr. Horner regarding the patient and he indicated that the patient should be transition from atenolol to long-acting Cardizem 120 mg at discharge with plans to follow-up in the cardiology clinic. 3. Morbid obesity/hypertension/hyperlipidemia/BPH/obstructive sleep apnea Complicates care, management, recovery and prognosis. Continue home medications as indicated. Continue nocturnal noninvasive positive pressure ventilatory cole pport. This note was generated with Sendoid dictation software. It may contain incorrect words, spelling, and punctuation that were not noted in checking the note before signing. Inpatient E&M: 29111 Subs Hosp L2
[2019-09-29 07:28] LABS: ALB/GLOB Ratio 1.2 RATIO (0.9-2.4); AST(SGOT) 18 U/L (15-37); Alanine Aminotransfer ALT/SGPT 36 U/L (16-61); Albumin, Serum 3.6 g/dL (3.2-5.0); Alkaline Phosphatase 60 U/L (45-117); Anion Gap 4 (5-15); BUN 24 mg/dL (7-18); BUN/Creat Ratio 30.8 RATIO (10-20); Calcium,Total 8.5 mg/dL (8.5-10.1); Chloride 108 mmol/L (98-107); Creatinine, Serum 0.78 mg/dL (0.70-1.30); EST Glomerular Filtration Rate 104 mL/min (>60); Est Glom Filt Rate - Afr Amer 126 mL/min (>60); Estimated Creatinine Clearance 65.55 ml/min; Glucose 96 mg/dL (74-106); Potassium 3.8 mmol/L (3.5-5.1); Protein, Total 6.6 g/dL (6.4-8.2); Sodium Level 141 mmol/L (136-145)
[2019-09-29] MEDS: predniSONE 20 MG Tablet PO (08:35)
[2019-09-29] MEDS: Calcium (Elemental) 500 MG Tablet 1000 MG PO (08:35)
[2019-09-29] MEDS: Aspirin 81 MG TAB.CHEW PO (08:35)
[2019-09-29] MEDS: Azelastine HCl NASAL.SRY 1 SPRAY NASAL (08:35)
[2019-09-29] MEDS: Loratadine 10 MG Tablet PO (08:36)
[2019-09-29] MEDS: Tamsulosin HCl 0.4 MG Capsule 0.8 MG PO (08:36)
[2019-09-29] MEDS: Montelukast 10 MG Tablet PO (08:36)
[2019-09-29] MEDS: Fluticasone 0.05% 1 SPRAY NASAL.SRY 2 SPRAY NASAL (08:36)
[2019-09-29] MEDS: Atenolol 25 MG Tablet PO (08:37)
[2019-09-29 10:56] LABS: Bedside Glucose 88 mg/dL (70-110)
[2019-09-29 11:25] LABS: Bedside Glucose 165 mg/dL (70-110)
--- NOTE | 2019-09-29 11:29 | CASEMGMT ---
RN CM Assessment Note Presentation: COPD/Asthma Intro role of CM and purpose of RN CM assessment to patient in room. Demographics, PCP and Pharmacy verified. Pt is awake, alert and able to participate in assessment. Pt states he is generally independent at home. Has some difficulty with putting socks on and bending over to pick thiings up. Denies using ambulatory DME. Denies care needs at this time. PCP: Dr. Guerrero Bateman Specialists: Dr. Carson, pulmonology, Dr. Rodríguez, cardiology in [place], [place] Preferred Pharmacy: [facility] Insurance: [facility] Prescription Benefit: yes LNOK : Meena Living Arrangements: Lives in one story home, 1 step into home. States steps are becoming more difficult for him but no safety concern. Pt states most limiting factor for activity is shortness of breath. Transportation: drives DME: Oxygen through [employer]. 2L during day, 7L @ night through [employer]. Cpap through [employer]. Has concentrator and portability. States he does not use any ambulatory assistive devices. HHC/SNF: none Patient DC goals: Home DC PLAN: anticipate home on discharge. No care needs identified. Pt denies concerns re: dc. RN CM advised to contact cm for any concerns/needs that may arise. Vadim TAN RN ACM
--- NOTE | 2019-09-29 11:31 | DCINST_ITS ---
You will use the following diet at home:: Cardiac Discharge Activity: Return to Normal Activity Call your doctor if you observe: Shortness of breath, Dizziness, Fainting spells, Chest pain Allergies/Adverse Reactions: Allergies No Known Allergies Allergy (Verified 09/28/19 10:59) Medications to take at Discharge Albuterol Inhaler [Ventolin Hfa] 2 puff INHALATION Q6H PRN PRN 05/16/16 Aspirin [Aspirin, Baby] 81 mg PO DAILY@0800 tab.chew 05/24/16 guaifenesin 600 mg tablet, extended release 12 hr 600 mg PO Q12H PRN 05/14/17 fluticasone propionate 50 mcg/actuation nasal spray,suspension 2 spray INTRANASAL QDAY #16 g 07/23/17 albuterol sulfate 2.5 mg INHALATION BID #180 ea 11/27/17 atenolol 25 mg tablet 25 mg PO DAILY 02/09/18 Portable Oxygen Concentrator #1 ea 03/16/18 budesonide 0.5 mg/2 mL suspension for nebulization 2 ml INHALATION Q12H #60 ea 09/29/18 furosemide 40 mg tablet 40 mg PO DAILY PRN #30 tab 09/29/18 potassium chloride 20 mEq tablet,extended release 20 meq PO DAILY PRN #30 tab 09/29/18 loratadine 10 mg tablet 10 mg PO QDAY #90 tab 10/27/18 ipratropium 0.5 mg-albuterol 3 mg (2.5 mg base)/3 mL nebulization soln 3 ml INHALATION Q6H PRN #180 ml 02/02/19 azithromycin 250 mg tablet 250 mg PO QMWF #12 tab 03/22/19 prednisone 10 mg tablet 20 mg PO QDAY #60 tab 03/22/19 azelastine 137 mcg (0.1 %) nasal spray aerosol 1 spray INTRANASAL BID #30 ml 09/01/19 Alendronate Sodium 70 mg PO TH 09/28/19 Benzonatate 200 mg PO QODAY 09/28/19 Calcium Carbonate [Calcium] 1,000 mg PO DAILY 09/28/19 Ergocalciferol (Vitamin D2) [Vitamin D2] 50,000 unit PO QMONTH 09/28/19 Lorazepam [Ativan] 0.5 mg PO QHS PRN PRN 09/28/19 Montelukast [Singulair] 10 mg PO DAILY 09/28/19 Roflumilast [Daliresp] 500 mcg PO QODAY 09/28/19 Tamsulosin HCl 0.8 mg PO DAILY 09/28/19 morphine solution (IR) [Roxanol (IR oral solution)] 0.125 mg PO TID PRN PRN 09/28/19 Primary Care Physician: Guerrero Bateman [Primary Care Provider] - Please follow up with your Primary Care Physician in: 1 Week Test Results: Test results from this visit will be discussed in further detail at your follow- up appointment, if applicable. Please Follow Up With: Chandan Carson MD When: 1 Week Please Follow Up With: Jose Horner MD When: 2 Week Proposed Discharge Date: 09/29/19
--- NOTE | 2019-09-29 12:17 | PHA.DC.MR ---
Pharmacy Service has performed discharge medication reconciliation for this patient. The patient's discharge medication list was reviewed for discrepancies and discrepancies were resolved. Home Medications Albuterol Inhaler [Ventolin Hfa] 2 puff INHALATION Q6H PRN PRN 05/16/16 Aspirin [Aspirin, Baby] 81 mg PO DAILY@0800 tab.chew 05/24/16 guaifenesin 600 mg tablet, extended release 12 hr 600 mg PO Q12H PRN 05/14/17 fluticasone propionate 50 mcg/actuation nasal spray,suspension 2 spray INTRANASAL QDAY #16 g 07/23/17 albuterol sulfate 2.5 mg INHALATION BID #180 ea 11/27/17 atenolol 25 mg tablet 25 mg PO DAILY 02/09/18 Portable Oxygen Concentrator #1 ea 03/16/18 budesonide 0.5 mg/2 mL suspension for nebulization 2 ml INHALATION Q12H #60 ea 09/29/18 furosemide 40 mg tablet 40 mg PO DAILY PRN #30 tab 09/29/18 potassium chloride 20 mEq tablet,extended release 20 meq PO DAILY PRN #30 tab 09/29/18 loratadine 10 mg tablet 10 mg PO QDAY #90 tab 10/27/18 ipratropium 0.5 mg-albuterol 3 mg (2.5 mg base)/3 mL nebulization soln 3 ml INHALATION Q6H PRN #180 ml 02/02/19 azithromycin 250 mg tablet 250 mg PO QMWF #12 tab 03/22/19 prednisone 10 mg tablet 20 mg PO QDAY #60 tab 03/22/19 azelastine 137 mcg (0.1 %) nasal spray aerosol 1 spray INTRANASAL BID #30 ml 09/01/19 Alendronate Sodium 70 mg PO TH 09/28/19 Benzonatate 200 mg PO QODAY 09/28/19 Calcium Carbonate [Calcium] 1,000 mg PO DAILY 09/28/19 Ergocalciferol (Vitamin D2) [Vitamin D2] 50,000 unit PO QMONTH 09/28/19 Lorazepam [Ativan] 0.5 mg PO QHS PRN PRN 09/28/19 Montelukast [Singulair] 10 mg PO DAILY 09/28/19 Roflumilast [Daliresp] 500 mcg PO QODAY 09/28/19 Tamsulosin HCl 0.8 mg PO DAILY 09/28/19 morphine solution (IR) [Roxanol (IR oral solution)] 0.125 mg PO TID PRN PRN 09/28/19
--- NOTE | 2019-09-29 12:51 | DS.PCM_ITS ---
<Rachel Lara - Last Filed: 09/29/19 13:09> Discharge Date and Diagnosis Date of Admission: 09/28/19 Date of Discharge: 09/29/19 - Primary Discharge Diagnosis Acute Problems: 1. Dyspnea in the context of chronic severe COPD/severe persistent asthma with chronic hypoxic respiratory failure 2. CAD with history of stent 3. Chronic diastolic CHF 4. Hypertension 5. Hyperlipidemia 6. SCOTT 7. BPH 8. Morbid obesity 9. Osteoporosis of the lumbar spine - Secondary Discharge Diagnosis Chronic Problems: Chronic Problems (Last Reviewed 09/28/19 @ 11:[address] 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 (Chronic) Nonrheumatic tricuspid (valve) insufficiency (Chronic) Chronic hypoxemic respiratory failure (Chronic) SCOTT (obstructive sleep apnea) (Chronic) Pulmonary HTN (Chronic) Tobacco abuse (Chronic) Spinal stenosis (Chronic) Sprain and strain of lumbosacral joint/ligament (Chronic) H/O heart artery stent (Chronic) 1999 S/P lumbar spinal fusion (Chronic) L1-L5 05/2014 Tobacco dependence in remission (Chronic) LDCT due in October 2019 Severe persistent asthma (Chronic) Allergic asthma with acute exacerbation (Chronic) SCOTT (obstructive sleep apnea) (Chronic) Stage 4 very severe COPD by GOLD classification (Chronic) FEV1 31% CAD (coronary artery disease) (Chronic) COPD (chronic obstructive pulmonary disease) (Chronic) Hospital Course and Treatment Imaging Results: Diagnostic Data Chest X-Ray 09/28/19 10:54 IMPRESSION: Poor inspiration with some bibasilar atelectasis. Electronically Signed: Kehinde Walls MD at 11:22 EDT Tel , Service support , Chest CTA 09/28/19 12:15 IMPRESSION: 1. No demonstrated pulmonary embolism or arterial dissection. 2. No demonstrated consolidation or pleural effusion. No lung nodules are seen. Both lungs are mildly hyperinflated compatible with COPD. Electronically Signed: Agustin Mahmood MD at 17:38 EDT , Service support , Dr. Vallejo- Pulmonary Medicine Operations: None Procedures: 2-D Echocardiogram Summary of Care Provided: The patient is a 69 year old M admitted 09/28/2019 due to shortness of breath. 1. Dyspnea in the context of chronic severe COPD/severe persistent asthma with chronic hypoxic respiratory failure-chest x-ray and CTA unremarkable. Troponin negative. BNP normal. Echocardiogram with EF 65%. Dr. Vallejo, pulmonary medicine consulted. Continue supplement oxygen to maintain O2 sat above 90%. Patient reports dyspnea has resolved. Unclear etiology. COVID-19 negative. Continue home aerosol regimen. Patient follows with palliative care. Follow-up with Dr. Carson, pulmonary medicine in 1 to 2 weeks. Follow-up with PCP in 1 week. 2. CAD with history of stent-continue aspirin. Outpatient follow-up with cardiology. Home atenolol regimen discontinued. Initiated on Cardizem 120 mg p.o. daily. 3. Chronic diastolic CHF-no exacerbation. Echocardiogram demonstrated an EF of 65%. BNP normal. 4. Hypertension-stable, continue atenolol regimen. 5. SCOTT-continue home Pap therapy. 6. BPH-continue Flomax. 7. Morbid obesity-encouraged diet and lifestyle modifications. 8. Osteoporosis of the lumbar spine-on alendronate weekly. Continue calcium/vitamin D supplementation. Patient seen and examined prior to discharge. Physical assessment as noted below. Patient is stable for discharge with follow up recommendations as noted above. This patient was seen by ALEM Arriaga under the supervision of Dr. Stevenson. - Physical Exam Vitals/I&O's: Vital Signs Temp Pulse Resp BP Pulse Ox 98.4 F 62 16 136/78 H 97 09/29/19 08:33 09/29/19 11:13 09/29/19 08:33 09/29/19 08:33 09/29/19 08:33 Oxygen Flow Rate (L/min) 2 Oxygen Delivery Method Nasal Cannula Weight: 234 lb 9.149 oz Body Mass Index (BMI) 35.6 Intake and Output for Last 24 Hours 09/27/19 09/28/19 09/29/19 23:59 23:59 23:59 Intake Total 1090 / 1090 0 / 0 Output Total 400 / 400 Balance 690 / 690 0 / 0 General: Alert, Oriented x3, Cooperative HEENT: Atraumatic, PERRLA, EOMI, Normocephalic Neck: Supple, No JVD, Negative Carotid Bruits Lungs: Clear to auscultation, Diminished Cardiovascular: Regular rate, No murmurs Abdomen: Bowel Sounds Present, Soft, Non Tender, Non-Distended Extremities: No clubbing, No cyanosis, Capillary Refill Less than 3 Seconds, Edema - +1 bilateral extremity edema Skin: No rashes, No breakdown Musculoskeletal: No Tenderness to Palpation of Joints or Extremities Neurological: Cranial nerves II-XII grossly intact, Neuro grossly intact Psych/Mental Status: Normal Affect, Appropriate Microbiology Past 72 Hours 09/28/19 13:05 Mucosa - Nasopharyngeal Coronavirus COVID-19 PCR - Final Laboratory Results 09/28/19 11:50: PT 13.3, INR 1.1, D-Dimer Quant (PE/DVT) 0.92 H* 09/28/19 11:50: Platelet Estimate SLT 09/28/19 11:50: B-Natriuretic Peptide 10.7 09/28/19 11:50: Procalcitonin < 0.04 09/28/19 13:05: COVID-19 (TAN) Cancelled 09/28/19 15:15: Troponin I < 0.015 09/28/19 17:36: POC Glucose 142 H 09/28/19 17:50: Troponin I < 0.015 09/28/19 21:19: POC Glucose 128 H 09/29/19 06:28: POC Glucose 88 09/29/19 06:37: WBC 7.2, RBC 4.42 L, Hgb 13.2, Hct 42.6, MCV 96.4 H, MCH 29.9, MCHC 31.0 L, RDW Std Deviation 51.7 H, RDW Coeff of Alexa 14.6, Plt Count 149 L, MPV 9.0, Immature Gran % (Auto) 1.200 H, Neut % (Auto) 73.8 H, Lymph % (Auto) 17.8 L, [place] % (Auto) 6.5, Eos % (Auto) 0.3, Baso % (Auto) 0.4, Absolute Neuts (auto) 5.3, Absolute Lymphs (auto) 1.28, Nucleated RBC % 0 09/29/19 06:37: Sodium 141, Potassium 3.8, Chloride 108 H, Carbon Dioxide 29.0, Anion Gap 4 L, BUN 24 H, Creatinine 0.78, Estim Creat Clear Calc 65.55, Est GFR (MDRD) Af Amer 126, Est GFR (MDRD) Non-Af 104, BUN/Creatinine Ratio 30.8 H, Glucose 96, Calcium 8.5, Total Bilirubin 0.50, AST 18, ALT 36, Alkaline Phosphatase 60, Total Protein 6.6, Albumin 3.6, Globulin 3.0, Albumin/Globulin Ratio 1.2 09/29/19 11:08: POC Glucose 165 H Current Medications Acetaminophen (Tylenol) 650 mg PO Q6H PRN PRN PRN Reason: Pain Score 1-10/Temp > 100.7 F Al Hydroxide/Mg Hydroxide (Mylanta Ii) 30 ml PO Q6H PRN PRN PRN Reason: Gastric Burning Albuterol Sulfate (Ventolin Aerosols) 2.5 mg INHALATION Q2H PRN PRN PRN Reason: SOB/Wheezing Last Admin: 09/28/19 18:54 Dose: 2.5 mg Documented by: Albuterol/Ipratropium (Duoneb) 3 ml INHALATION Q6HWA.RT [facility] Last Admin: 09/29/19 06:45 Dose: 3 ml Documented by: Aspirin (Aspirin, Baby) 81 mg PO DAILY@0800 [facility] Last Admin: 09/29/19 08:35 Dose: 81 mg Documented by: Atenolol (Tenormin (Beta Paulino)) 25 mg PO DAILY [facility] Last Admin: 09/29/19 08:37 Dose: 25 mg Documented by: Azelastine HCl (Astelin) 1 spray NASAL BID [facility] Last Admin: 09/29/19 08:35 Dose: 1 spray Documented by: Azithromycin (Zithromax) 250 mg PO MoWeFr@1000 [facility] Last Admin: 09/28/19 12:49 Dose: 250 mg Documented by: Budesonide (Pulmicort Aerosol) 0.5 mg INHALATION BID.RT [facility] Last Admin: 09/28/19 16:34 Dose: 0.5 mg Documented by: Calcium Carbonate (Os-Winston 500) 1,000 mg PO DAILYCM [facility] Last Admin: 09/29/19 08:35 Dose: 1,000 mg Documented by: Enoxaparin Sodium (Lovenox) 40 mg SC DAILY@0600 [facility] Last Admin: 09/29/19 05:53 Dose: 40 mg Documented by: Fluticasone Propionate (Flonase Nasal [place]) 2 spray NASAL DAILY [facility] Last Admin: 09/29/19 08:36 Dose: 2 spray Documented by: Furosemide (Lasix) 40 mg PO DAILY PRN PRN Reason: edema Guaifenesin (Robitussin) 20 ml PO Q4H PRN PRN PRN Reason: COUGH Sodium Chloride () 250 mls @ 15 mls/hr IV .[id number] PRN PRN Reason: Saline Flush Sodium Chloride () 250 mls @ 15 mls/hr IV .[id number] PRN PRN Reason: Additional IVPB Infusion Loratadine (Claritin) 10 mg PO DAILY [facility] Last Admin: 09/29/19 08:36 Dose: 10 mg Documented by: Lorazepam (Ativan) 0.5 mg PO QHS PRN PRN PRN Reason: ANXIETY Magnesium Hydroxide (Milk Of Magnesia) 30 ml PO DAILY PRN PRN PRN Reason: Constipation Melatonin (Melatonin) 3 mg PO QHS PRN PRN PRN Reason: INSOMNIA Montelukast Sodium (Singulair) 10 mg PO DAILY [facility] Last Admin: 09/29/19 08:36 Dose: 10 mg Documented by: Nitroglycerin (Nitrostat) 0.4 mg SUBLINGUAL Q5M PRN PRN Reason: CARDIAC/CHEST PAIN Ondansetron HCl (Zofran) 4 mg IV Q8H PRN PRN PRN Reason: NAUSEA/VOMITING Oxycodone HCl (Oxyir) 5 mg PO Q4H PRN PRN PRN Reason: Pain Score 4-5/10 Oxycodone HCl (Oxyir) 10 mg PO Q4H PRN PRN PRN Reason: Pain Score 6-10/10 Potassium Chloride (K-Dur) 20 meq PO DAILY PRN PRN Reason: lasix use Prednisone () 20 mg PO DAILY@0800 [facility] Last Admin: 09/29/19 08:35 Dose: 20 mg Documented by: Promethazine HCl (Phenergan) 25 mg IM Q6H PRN PRN PRN Reason: Breakthrough Nausea/Vomiting Sodium Chloride () 10 - 40 ml IV UD PRN PRN Reason: SALINE FLUSH Tamsulosin HCl (Flomax) 0.8 mg PO DAILY [facility] Last Admin: 09/29/19 08:36 Dose: 0.8 mg Documented by: Discharge Diet: No Restrictions Discharge Activity: Return to Normal Activity Call your doctor if you observe: Shortness of breath, Dizziness, Fainting spells, Chest pain Home Medications: Medications to take at Discharge Albuterol Inhaler [Ventolin Hfa] 2 puff INHALATION Q6H PRN PRN 05/16/16 Aspirin [Aspirin, Baby] 81 mg PO DAILY@0800 tab.chew 05/24/16 guaifenesin 600 mg tablet, extended release 12 hr 600 mg PO Q12H PRN 05/14/17 fluticasone propionate 50 mcg/actuation nasal spray,suspension 2 spray INTRANASAL QDAY #16 g 07/23/17 albuterol sulfate 2.5 mg INHALATION BID #180 ea 11/27/17 Portable Oxygen Concentrator #1 ea 03/16/18 budesonide 0.5 mg/2 mL suspension for nebulization 2 ml INHALATION Q12H #60 ea 09/29/18 furosemide 40 mg tablet 40 mg PO DAILY PRN #30 tab 09/29/18 potassium chloride 20 mEq tablet,extended release 20 meq PO DAILY PRN #30 tab 09/29/18 loratadine 10 mg tablet 10 mg PO QDAY #90 tab 10/27/18 ipratropium 0.5 mg-albuterol 3 mg (2.5 mg base)/3 mL nebulization soln 3 ml INHALATION Q6H PRN #180 ml 02/02/19 azithromycin 250 mg tablet 250 mg PO QMWF #12 tab 03/22/19 prednisone 10 mg tablet 20 mg PO QDAY #60 tab 03/22/19 azelastine 137 mcg (0.1 %) nasal spray aerosol 1 spray INTRANASAL BID #30 ml Alendronate Sodium 70 mg PO TH 09/28/19 Benzonatate 200 mg PO QODAY 09/28/19 Calcium Carbonate [Calcium] 1,000 mg PO DAILY 09/28/19 Ergocalciferol (Vitamin D2) [Vitamin D2] 50,000 unit PO QMONTH 09/28/19 Lorazepam [Ativan] 0.5 mg PO QHS PRN PRN 09/28/19 Montelukast [Singulair] 10 mg PO DAILY 09/28/19 Roflumilast [Daliresp] 500 mcg PO QODAY 09/28/19 Tamsulosin HCl 0.8 mg PO DAILY 09/28/19 morphine solution (IR) [Roxanol (IR oral solution)] 0.125 mg PO TID PRN PRN 09/28/19 Diltiazem CD [Cardizem CD] 120 mg PO DAILY #30 cap 09/29/19 Following Prescrptions Were Given to Patient: Diltiazem CD [Cardizem CD] 120 mg PO DAILY #30 cap Transmission Status: Received by [facility] Primary Care Physician: Guerrero Bateman [Primary Care Provider] - Please follow up with your Primary Care Physician in: 1 Week Please Follow Up With: Chandan Carson MD When: 1 Week Please Follow Up With: Jose Horner MD When: 2 Week Disposition: Home Minutes spent on discharge:: 35 Patient Condition:: Stable Medical Necessity - Tobacco Use Smoking Status: Former smoker Meaningful Use Info Meaningful Use Diagnoses (Choose all that apply): None applicable <Rodolfo Stevenson - Last Filed: 09/29/19 14:07> Discharge Date and Diagnosis - Secondary Discharge Diagnosis Chronic Problems: Chronic Problems (Last Reviewed 09/28/19 @ 11:[address] 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 (Chronic) Nonrheumatic tricuspid (valve) insufficiency (Chronic) Chronic hypoxemic respiratory failure (Chronic) SCOTT (obstructive sleep apnea) (Chronic) Pulmonary HTN (Chronic) Tobacco abuse (Chronic) Spinal stenosis (Chronic) Sprain and strain of lumbosacral joint/ligament (Chronic) H/O heart artery stent (Chronic) 1999 S/P lumbar spinal fusion (Chronic) L1-L5 05/2014 Tobacco dependence in remission (Chronic) LDCT due in October 2019 Severe persistent asthma (Chronic) Allergic asthma with acute exacerbation (Chronic) SCOTT (obstructive sleep apnea) (Chronic) Stage 4 very severe COPD by GOLD classification (Chronic) FEV1 31% CAD (coronary artery disease) (Chronic) COPD (chronic obstructive pulmonary disease) (Chronic) Hospital Course and Treatment Summary of Care Provided: This patient was seen in conjunction with ALEM Arriaga . I have independently interviewed and examined the patient and reviewed pertinent historical, laboratory, and other data. Please refer to ALEM Arriaga note for details of this patient's presentation, findings, and recommendations. I have reviewed Rachel Marco, [employer]-C note and concur with documented findings. Patient is a 69-year-old gentleman admitted with progressive shortness of breath patient was admitted to a monitored bed for subsequent management. His acute dyspnea was attributed to his severe COPD as well as persistent asthma. Patient was managed per protocol including consultation placed to pulmonary medicine. Patient was expected to stay for at least 2 midnight however given his rather unexpected rapid improvement he was discharged home just a day after his admission Hospital course: As documented above - Physical Exam Vitals/I&O's: Vital Signs Temp Pulse Resp BP Pulse Ox 98.6 F 72 16 105/65 94 09/29/19 13:03 09/29/19 13:27 09/29/19 13:27 09/29/19 13:03 09/29/19 13:03 Oxygen Flow Rate (L/min) 2 Oxygen Delivery Method Nasal Cannula Weight: 106.4 kg Body Mass Index (BMI) 35.6 Intake and Output for Last 24 Hours 09/27/19 09/28/19 09/29/19 23:59 23:59 23:59 Intake Total 1090 / 1090 480 / 480 Output Total 400 / 400 Balance 690 / 690 480 / 480 Microbiology Past 72 Hours 09/28/19 13:05 Mucosa - Nasopharyngeal Coronavirus COVID-19 PCR - Final Laboratory Results 09/28/19 11:50: B-Natriuretic Peptide 10.7 09/28/19 15:15: Troponin I < 0.015 09/28/19 17:36: POC Glucose 142 H 09/28/19 17:50: Troponin I < 0.015 09/28/19 21:19: POC Glucose 128 H 09/29/19 06:28: POC Glucose 88 09/29/19 06:37: WBC 7.2, RBC 4.42 L, Hgb 13.2, Hct 42.6, MCV 96.4 H, MCH 29.9, MCHC 31.0 L, RDW Std Deviation 51.7 H, RDW Coeff of Alexa 14.6, Plt Count 149 L, MPV 9.0, Immature Gran % (Auto) 1.200 H, Neut % (Auto) 73.8 H, Lymph % (Auto) 17.8 L, [place] % (Auto) 6.5, Eos % (Auto) 0.3, Baso % (Auto) 0.4, Absolute Neuts (auto) 5.3, Absolute Lymphs (auto) 1.28, Nucleated RBC % 0 09/29/19 06:37: Sodium 141, Potassium 3.8, Chloride 108 H, Carbon Dioxide 29.0, Anion Gap 4 L, BUN 24 H, Creatinine 0.78, Estim Creat Clear Calc 65.55, Est GFR (MDRD) Af Amer 126, Est GFR (MDRD) Non-Af 104, BUN/Creatinine Ratio 30.8 H, Glucose 96, Calcium 8.5, Total Bilirubin 0.50, AST 18, ALT 36, Alkaline Phosphatase 60, Total Protein 6.6, Albumin 3.6, Globulin 3.0, Albumin/Globulin Ratio 1.2 09/29/19 11:08: POC Glucose 165 H Inpatient E&M: [id number] Disch Hosp
--- NOTE | 2019-09-29 12:54 | CASEMGMT ---
XAVIER called [facility] and left them a voice mail letting them know that patient was admitted yesterday and is being discharged today. XAVIER faxed d/c instructions. Macey HOFFMANN
== END 2019-09-29 14:00 | disposition home or self-care (01) | DRG 191 ==
LOC: ICU 19:17 → PCU 20:07
PROVIDERS: Admitting Provider Internal Medicine; PCP Family Medicine; Referring Provider Internal Medicine; Visit Provider Internal Medicine
DX: J44.1 Chronic obstructive pulmonary disease with (acute) exacerbation (principal); J45.51 Severe persistent asthma with (acute) exacerbation; I50.32 Chronic diastolic (congestive) heart failure; J96.11 Chronic respiratory failure with hypoxia; I11.0 Hypertensive heart disease with heart failure; I25.10 Atherosclerotic heart disease of native coronary artery without angina pectoris; E78.5 Hyperlipidemia, unspecified; G47.33 Obstructive sleep apnea (adult) (pediatric); N40.0 Benign prostatic hyperplasia without lower urinary tract symptoms; E66.01 Morbid (severe) obesity due to excess calories; Z68.35 Body mass index [BMI] 35.0-35.9, adult; M81.0 Age-related osteoporosis without current pathological fracture; Z95.5 Presence of coronary angioplasty implant and graft; I27.20 Pulmonary hypertension, unspecified; Z87.891 Personal history of nicotine dependence
CPT/HCPCS: 36415; 71045; 71275; 80053; 82962; 83605; 83735; 83880; 84145; 84484; 85025; 85379; 85610; 87635; 93005; 93306; 93970; 94002; 94003; 94640; 99251; G2023; Q9967; G0463; U0004

== ENCOUNTER → 2019-10-05 15:24 | Outpatient (CLI) | payer OTHER, SELFPAY ==
[2019-09-28 10:49] VITALS: BMI 35.6
[2019-10-08 03:06] LABS: Alternaria tenuis <0.10 kU/L (Class 0); Ash, White 0.18 kU/L (Class 0/I); Aspergillus fumigatus <0.10 kU/L (Class 0); Bermuda Grass 0.16 kU/L (Class 0/I); Birch <0.10 kU/L (Class 0); Black Walnut 0.12 kU/L (Class 0/I); Cat Hair / Dander,Stand 0.74 kU/L (Class II); Cedar, Mountain 0.25 kU/L (Class 0/I); Cladosporium herbarum <0.10 kU/L (Class 0); Cockroach, American 1.32 kU/L (Class II); Cottonwood 0.14 kU/L (Class 0/I); D farinae Mite 0.38 kU/L (Class I); D pteronyssinus 0.32 kU/L (Class I); Dog Epithelia 0.11 kU/L (Class 0/I); Elm, American White <0.10 kU/L (Class 0); Immunoglobulin E 293 IU/mL (6-495); Maple/Box Elder 0.11 kU/L (Class 0/I); Mulberry, White <0.10 kU/L (Class 0); Oak, White 0.12 kU/L (Class 0/I); Pecan 0.11 kU/L (Class 0/I); Penicillium Notatum <0.10 kU/L (Class 0); Ragweed, Short/Common 0.34 kU/L (Class I); Russian Thistle 0.16 kU/L (Class 0/I); Sheep Sorrel 0.12 kU/L (Class 0/I); Sycamore, American 0.12 kU/L (Class 0/I); Timothy Grass 0.17 kU/L (Class 0/I)
[2019-10-10 00:23] LABS: Mouse Urine <0.10 kU/L (Class 0)
== END ==
PROVIDERS: PCP Family Medicine; Referring Provider Otolaryngology; Visit Provider Otolaryngology
DX: T78.40XA Allergy, unspecified, initial encounter (principal)
CPT/HCPCS: 36415; 82785; 86003

== ENCOUNTER → 2019-10-12 15:18 | Outpatient (CLI) | payer OTHER, SELFPAY ==
[2019-10-11 11:03] VITALS: BMI 36.0
--- NOTE | 2019-10-12 15:33 | RAD_ITS ---
STUDY: X-RAY - LUMBAR SPINE REASON FOR EXAM: Male, 69 years old. Pain TECHNIQUE: 4 view(s) of the lumbar spine were obtained. COMPARISON: None FINDINGS: Normal lumbar lordosis. There is a 16 degree dextroscoliosis centered at the superior aspect of L3. There is slight retrolisthesis of L2 on L3 and borderline anterolisthesis of L3 on L4. The patient has undergone prior L2-L4 laminectomies. There is multilevel endplate spondylosis of the lumbar vertebrae. There is multi-level degenerative disc disease with multi-level disc space narrowing. There is no demonstrated osseous destructive lesion or compression fracture. Degenerative changes are evident in the mid to lower lumbar facet joints. There may also be some degenerative narrowing and early periarticular sclerosis of the upper bilateral sacroiliac joints. There is mild atherosclerotic calcification of the abdominal aorta. RAD/L/S Spine Min 4 Views IMPRESSION: Degenerative changes of the spine, as detailed above. Electronically Signed: Vishnu Goetz MD at 16:06 EDT , Service support ,
== END ==
PROVIDERS: PCP Family Medicine; Referring Provider Family Medicine; Visit Provider Family Medicine
DX: M54.5 Low back pain (principal); M51.16 Intervertebral disc disorders with radiculopathy, lumbar region; M81.0 Age-related osteoporosis without current pathological fracture
CPT/HCPCS: 72110

== ENCOUNTER → 2019-11-21 13:03 | Outpatient (CLI) | payer OTHER, SELFPAY ==
[2019-10-11 11:03] VITALS: BMI 36.0
[2019-11-10 09:44] VITALS: BMI 36.0
--- NOTE | 2019-11-21 13:15 | PR.ITP_ITS ---
General Information - General Information Admitting Diagnosis: VERY [id number]-KLX-[id number] COPD, PRE-LUNG TRANSPLANT Gold Classification:: GOLD 4: Very Severe Oxygen: 3 LITERS P/MINUTE AT REST - PFT FEV1:: 0.61 FVC:: 1.88 FEV1/FVC%:: 33 - Education/Goals Barriers to Learning: Hearing Impairment, Vision Impairment Individual Counseling: Initial Assessment: Dyspnea control techniques at rest, activity, and ADLs, Inhaled and respiratory medications, Exacerbation prevention & management, O2, Rx, system, safety, ADL management and pacing, Panic & depression management, Nutrition & weight management - REFERRAL TO NUTRITIONAL SERVICES, Home exercise plan & guidelines Patient Goals: Breathe better: Initial Assessment, Increase endurance/stamina: Initial Assessment, Return to recreation/hobby: Initial Assessment, Improve diet and nutrition: Initial Assessment, Symptom management: Initial Assessment, Take medications correctly: Initial Assessment, Improve weight: Initial Assessment Exercise - Initial Assessment - Visit Date of Eval: 11/21/19 - Problem/Goals Problems: Deconditioning, No regular exercise, Knowledge deficit exercise guidelines, Knowledge deficit exercise safety Goals:: Aerobic exercise 30-60 mins x 9 weeks, OK: 2-3/wk, Resistance: 2- 3x/weekly - Physician Prescribed Exercise Modalities: Treadmill, NuStep, SciFit Frequency (days/week): 3 Duration (Minutes):: 30-45 Intensity: 60-80% of age predicted maximum heart rate reserve METs - Progression: 0.5-1.0 MET, RPE 11-14 WEEK: 2.2 Target Heart Rate:: 97-126 - Plan Plan and Plan to Review:: Benefits of exercise, Core components of exercise, How to measure dyspnea level, How to monitor dyspnea level, Exercise intensity, Exercise safety guideline, Home exercise guidelines, [place]: 3-4/-13 Disease Management - Initial - Problems/Goals-Hypoxemia Hypoxemia Problems:: Hypoxemia Hypoxemia Goals:: Hypoxemia managed, Using O2 as Rx's safely - Problems/Goals-Medications Medication Goals: Adherence to prescribed medications, Correct technique/timing & care of MDI, DPI, nebulizer, and spacer. - Problems/Goals-Bronchial Hygiene Bronchial Hygiene Problems:: Respiratory infection Prevention/Management Bronchial Hygiene Goals:: Pt demonstrates effective cough, effective secretion clearance., Pt describes signs and symptoms of infection. - Initial Assessment Medications: Yes MDI, Yes DPI, Yes NEB, Yes Spacer Patient Reports:: Prod cough daily <1 Tbsp - Plans Hypoxemia Plan:: Monitor SpO2 rest & with exercise, Train appropriate O2 use at rest, Train appropriate O2 use with exercise, Train O2 safety & systems Reviewed prescribed medications:: Purpose, Schedule, Side effects, Importance of compliance Instruct correct technique/timing & care:: MDI, DPI, Nebulizer, Return demo use of inhaler Bronchial Hygiene Plan: Controlled cough, Vibratory PEP device, Hydration, Hand hygiene, Evaluate sputum, When to call MD, Signs/symptoms to report:, Influenza/Pneumovax vaccines Psychosocial - Initial Assess - Problems/Goals Problems: Depression, Impaired Q.O.L. Psychosocial Goals: Improved psychosocial coping skills., Verbalizes coping strategies., Adequate treatment of depression., Improved Q.O.L. - Psychosocial Test Depression:: Anxiety, Impaired QOL Tests Completed: SF - 36 survey completed, Mood Scale Test Referred to MD for counseling:: No - Plan Reviewed screening results: Yes Instructions given regarding:: Benefits of exercise, Relaxation techniques, Training in coping strategies Tobacco - Initial Assessment - Program Goals Tobacco Program Goals: Complete smoking cessation. Attend education classes. Improve Knowledge Test score - Stage of Change Stages of Change:: Action - Learning Barriers Learning Barriers: Vision, Ready to Learn - Family Support Do you have family support?: Yes - Tobacco Use Tobacco Use: Non-smoker - Education Gave Education Materials For:: Pulmonary Disease, Risk Factors, Breathing Techniques, Medical Compliance, Pulmonary A&P, Exacerbation Signs & Symptoms, Stress & Relaxation Nutrition/Wt Mgmt - Initial - Problems/Goals Problems: Overweight Goals: BMI 21-25, Wt Loss 1-2 lbs per week, Waist circumference - Weight Management Knowledge Deficit Management of:: Overweight, Osteoporosis, Lack of vitamin D/Ca++ supplement, Role of exercise in weight control Admit Height:: 5 ft 7 in Admit Weight:: 244 lb Admit BMI:: 38.2 - Diabetes Diabetes:: Yes Fasting blood glucose:: 122 - PRE-DIABETES DUE TO MORBID OBESITY Hgb A1C: 6.0 - Intervention Referral to dietitian:: Yes Referral to Diabetic Clinic:: Yes Will attend diet classes:: Yes - Plan Nutrition Plan: Yes Review BMI or WC & identify target wt & strategies for wt control, Yes Nutrition education class: Patient Health Questionnaire Initial Assessment 1. Little interest or pleasure in doing things: Several days 2. Feeling down, depressed, or hopeless: Several days 3. Trouble falling or staying asleep, or sleeping too much: Several days 4. Feeling tired or having little energy: Nearly every day 5. Poor appetite or overeating: Several days 6. Feeling bad about yourself -- or that you are a failure or have let yourself or your family down: Not at all 7. Trouble concentrating on things, such as reading the newspaper or watching television: Several days 8. Moving or speaking so slowly that other people could have noticed. Or the opposite - being so fidgety or restless that you have been moving around a lot more than usual: Several days 9. Thoughts that you would be better off , or of hurting yourself in some way: Not at all Total Score: 9 COPD Knowledge Test Initial COPD is a lung disease that:: Makes it hard to breathe & gets worse over time In the [place] the term COPD describes 2 main lung conditions:: Emphysema & chronic bronchitis The most common lung irritant that causes COPD is:: Cigarette smoke Common signs and symptoms of COPD include:: An ongoing cough/cough that produces a large amount of mucus, & SOB If you have COPD, what steps can you take?: Follow your treatment plan for COPD exactly as your doctor prescribes Swelling of the ankles is common in COPD:: False Fatigue [tiredness] is common in COPD:: True Wheezing is common in COPD:: True Crushing chest pain is common in COPD:: False Rapid weight loss is common in COPD:: False Breathlessness is a normal response to exercise: True Exercise should be avoided if it makes you short of breath: True All bronchodilators act within 10 minutes: True A spacer device increases the medication to the lungs: True Annual flu vaccine is recommended for pts w/lung disease: True COPD Knowledge Test Total Score:: 12 COPD Assessment Test [CAT] - Questions Never cough = 0, Cough all the time = 5: 1 No phlegm = 0, Chest full of phlegm = 5: 3 No chest tightness = 0, Chest very tight = 5: 2 No breathless w/exertion = 0, Very breathless w/exertion = 5: 5 No limitations w/activity = 0, Very limited w/activity = 5: 5 Confident leaving home = 0, Not at all confident = 5: 3 Sleep soundly = 0, Don't sleep soundly = 5: 4 Lots of energy = 0, No energy at all = 5: 4 Total CAT score:: 27 Self-Efficacy Initial Assessment We would like to know how confident you are in doing certain activities. Please select your confidence level for:: Select your confidence level for the following using the scale 1-10 where 1 is not at all confident and 10 is totally confident. Your score is the average of all 6 responses. Fatigue: How confident are you that you can keep the fatigue caused by your disease from interfering with the things you want to do? Select Number: 2 Physical Discomfort or Pain: How confident are you that you can keep the physical discomfort or pain of your disease from interfering with the things you want to do? Select Number: 4 Emotional Distress: How confident are you that you can keep the emotional distress caused by your disease from interfering with the things you want to do? Select Number: 3 Other Symptoms or Health Problems: How confident are you that you can keep other symptoms or health problems from interfering with the things you want to do? Select Number: 4 Different Tasks and Activities: How confident are you that you can do the different tasks and activities needed to manage your health condition so as to reduce your need to see a doctor? Select Number: 5 Medication: How confident are you that you can do things other than just taking medication to reduce how much your illness affects your everyday life? Select Number: 5 Total Score:: 3 Nutrition Survey - Nutrition Survey Instructions Scoring Instructions: Scoring is as follows: Yes = 1 points. No = 0 point. Patient score that is >/=12 is considered to be at potential nutritional risk and could benefit from a referral to a registered dietitian. - Nutrition Survey Initial Have you lost >10 lbs over the past 2 months without trying?: No Are you following a special diet at home for diabetes, low fat, or low salt?: Yes Are you interested in meeting with a dietitian for help understanding your diet?: No Do you eat less than 3 meals a day?: Yes Do you eat fatty meats (hicks, sausage, ribs, etc), fried foods, desserts, large amounts of salad dressings, margarine, butter, or cheese most days?: No Do you have food allergies? [Enter types in comment field]: No Do you eat in restaurants more than 3 times a week?: No Do you season food with salt, seasoning salt, or garlic salt?: No Do you used canned, boxed, frozen meals, or soups, seasoning packets?: No Total Score:: 2
--- NOTE | 2019-11-21 13:16 | PR.HP_ITS ---
History of Present Illness Arrival date:: 11/21/19 Arrival time:: 13:00 - . Date of Referral:: 10/28/19 Date of Evaluation: 11/21/19 Referring Physician: DR. LOUISE WIGGINS @ [facility] Primary Diagnosis: END-STAGE COPD, Patient being evaluated for Pre-Lung Transplant [facility] Breathless Scale: When is the patient short of breath? Y/N Grade: Description of Breathlessness: 0 I only get breathless with strenuous exercise. 1 I get short of breath when hurrying on level ground or walking up a slight hill. 2 On level ground, I walk slower than people of the same age because of breathless, or have to stop for breath when walking at my own pace. 3 I stop for breath after walking 100 yards or after a few minutes on level ground. 4 I am too breathless to leave the house or I am breathless when dressing. Respiratory Problems: Yes: Fatigue, Wheezing, Able to Speak in Full Sentences Home Medications: Home Medications Albuterol Inhaler [Ventolin Hfa] 2 puff INHALATION Q6H PRN PRN 05/16/16 Aspirin [Aspirin, Baby] 81 mg PO DAILY@0800 tab.chew 05/24/16 guaifenesin 600 mg tablet, extended release 12 hr 600 mg PO Q12H PRN 05/14/17 fluticasone propionate 50 mcg/actuation nasal spray,suspension 2 spray INTRANASAL QDAY #16 g 07/23/17 albuterol sulfate 2.5 mg INHALATION BID #180 ea 11/27/17 Portable Oxygen Concentrator #1 ea 03/16/18 budesonide 0.5 mg/2 mL suspension for nebulization 2 ml INHALATION Q12H #60 ea 09/29/18 furosemide 40 mg tablet 40 mg PO DAILY PRN #30 tab 09/29/18 potassium chloride 20 mEq tablet,extended release 20 meq PO DAILY PRN #30 tab 09/29/18 azithromycin 250 mg tablet 250 mg PO QMWF #12 tab 03/22/19 prednisone 10 mg tablet 20 mg PO QDAY #60 tab 03/22/19 azelastine 137 mcg (0.1 %) nasal spray aerosol 1 spray INTRANASAL BID #30 ml 09/01/19 Alendronate Sodium 70 mg PO TH 09/28/19 Benzonatate 200 mg PO QODAY 09/28/19 Calcium Carbonate [Calcium] 1,000 mg PO DAILY 09/28/19 Ergocalciferol (Vitamin D2) [Vitamin D2] 50,000 unit PO QMONTH 09/28/19 Montelukast [Singulair] 10 mg PO DAILY 09/28/19 Tamsulosin HCl 0.8 mg PO DAILY 09/28/19 morphine solution (IR) [Roxanol (IR oral solution)] 0.125 mg PO TID PRN PRN 09/28/19 diltiazem HCl 180 mg capsule,extended release 24 hr 180 mg PO DAILY #90 cap 10/06/19 fexofenadine 180 mg tablet 180 mg PO DAILY 10/06/19 ipratropium 0.5 mg-albuterol 3 mg (2.5 mg base)/3 mL nebulization soln 3 ml INHALATION Q6H PRN ml 10/06/19 roflumilast 500 mcg tablet 500 mcg PO QODAY 10/06/19 lorazepam 0.5 mg tablet 0.5 mg PO DAILY tab 10/11/19 compression stockings #1 ea 11/10/19 Allergies/Adverse Reactions: Allergies No Known Allergies Allergy (Verified 11/10/19 12:56) - Secretions Normal Color:: CLEAR Thick:: No Thin:: Yes Amount/Day:: 1 TSP Cough:: No Hx of Sleep Apnea: Yes Do you snore loudly (louder than talking or can be heard through closed doors)?: Yes - TRILOGY DEVICE AT WITH 6-7 LITERS OXYGEN Do you often feel tired/ fatigued/ sleepy during daytime?: Yes Has anyone observed you stop breathing during sleep?: Yes History of Hypertension (for STOP score): Yes STOP Results: Positive Medical Utilization Do you use a peak flow meter at home?: No Do you use a spacer device with your inhalers?: Yes Number of hospital visits in the last year?: 1 - 09/25/2019 DR. DEE Number of emergency room visits in the last year?: 0 Do you see your physician on a regular schedule?: Yes How often?: 3 MONTHS AND NEEDED Advanced Directives - Advanced Directives Power of Adolescent Psychiatrist: Yes Living Will: Yes Advance Directives Information Provided: No Advance Directives on File: No DNR Order?:: No - MOLST See MOLST form: No Past Medical History Medical History: Past Medical History (Last Updated 11/21/19 @ 13:25 by Ruben Hays, HUMAN INTELLIGENCE, CONSULTING BUSINESS DEVELOPER, BS) Atherosclerosis of coronary artery of [place] heart without angina pectoris (Chronic) I25.10 Chronic hypoxemic respiratory failure (Chronic) J96.11 SCOTT (obstructive sleep apnea) (Chronic) G47.33 Asthma (Chronic) J45.909 PND (post-nasal drip) (Chronic) R09.82 Stage 4 very severe COPD by GOLD classification (Chronic) J44.9 FEV1 31% Physical deconditioning R53.81 Vitamin D deficiency E55.9 Chronic hypoxemic respiratory failure J96.11 COPD (chronic obstructive pulmonary disease) J44.9 Obesity E66.9 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 Spinal stenosis M48.00 Sprain and strain of lumbosacral joint/ligament S33.5XXA Tobacco abuse Z72.0 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 due in October 2019 Acute bronchitis J20.9 Acute exacerbation of chronic obstructive pulmonary disease (Resolved) J44.1 Acute respiratory failure with hypoxia (Resolved) J96.01 Allergic asthma with acute exacerbation (Resolved) J45.901 Wheezing R06.2 Nonrheumatic tricuspid (valve) insufficiency (Ruled-out) I36.1 Secondary pulmonary arterial hypertension (Ruled-out) I27.21 Chest pain, unspecified R07.9 PINZON (dyspnea on exertion) R06.09 PINZON (dyspnea on exertion) (Inactive) R06.09 Hypersomnia G47.10 Oxygen desaturation R09.02 Surgical History: Past Surgical History (Last Reviewed 11/10/19 @ 13:13 by ALEM Dong) History of coronary artery stent placement (Resolved) Onset Date: 07/13/06 Z95.5 PCI-JOEL-Mid LCx w/ 2.75 x 33 mm Cypher Stent 07/13/2006 History of back surgery Z98.890 L1-L5 05/2014 History of left heart catheterization Onset Date: 09/08/16 Z98.890 S/P left rotator cuff repair Z98.890 10/2015 Family History: Family History (Last Reviewed 11/10/19 @ 13:13 by ALEM Dong) Father Heart disease - Current/ Previous Services Pulmonary Rehab:: Yes Social History - Smoking History Smoking Status: Former smoker Years Smokin Packs Smoked per Day: 2 Hx Smoking Cessation Date: 05/24/13 Hx Tobacco Use: No Hx Smoking Exposure: No - Alcohol Use Alcohol Usage: No - Substance Abuse Hx Substance Use: No - Occupation Occupation (List type of work in comments):: Retired - DISABLED - Hobbies, Recreation, Social Activities Hobbies: Sports - FISH, GARDEN, SIT IN MY GARAGE WITH FAN ON., None Recreational Activities: I can hardly do any recreational activities Functioning ADL/IADL - Current Ability Current Ability: Independent Self-Care (e.g.,grooming, dressing, & bathing), Independent Ambulation, Independent Transfer, Independent Household tasks (e.g., light meal prep, laundry, shopping) - Pt Functioning Prior to Problem Prior Functioning: Self-Care (e.g.,grooming, dressing, & bathing): Independent, Ambulation: Independent, Transfer: Independent, Household tasks (e.g., light meal prep, laundry, shopping): Independent Social Environment - Status Marital Status: - Current Living Arrangements Living Environment:: Spouse - Children How many children do you have?: 1 Do any of your children live nearby?: Yes - [place], [place] - Safety Do you feel safe in your surroundings?: Yes - Assistance Do you need any assistance at home?: NO Review of Systems Review of Systems: Right click = Denies ([place]). Left click = Reports ([place]) Respiratory: Reports: SOB upon Exertion, Wheezing, Appetite, Normal, Fatigue, Sleep, Normal. Denies: Cough, SOB at Rest, Sputum production Is Patient Pain Free?: Yes Pain Location: none Pain Level: 0/10 Risk Factor Assessment - Chief Complaint Chief Complaint: PATIENT IS A 69/M OF DR. JOHNATHAN DEE AND DR. MICHAEL POWER LOCALLY WHO IS BEING EVELUATED AT [facility] BY DR. LOUISE KIRKLAND (REFERRING PHYSICIAN) FOR POSSIBLE LUNG TRANSPLANT FOR HIS END-STAGE COPD. 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 Nutrition Referral for Diabetes: Yes - Obesity Height: 5 ft 7 in Weight:: 244 lb 3.2 oz Weight in Pounds: 244.2 lbs Weight Source: Standing Scale Body Mass Index (BMI): 38.2 Desired Body Weight: 220 Nutritional Referral for Obesity: Yes - Physical Activity Physical Inactivity: None - Risk Stratification Risk Guidelines: Lowest Risk: Risk Factor for Smoking, Moderate Risk: Risk Factor for Diabetes - GLUCOSE 122 A1C 6.0, Risk Factor for Depression, Highest Risk: Risk Factor for Dyslipidemia, Risk Factor for Obesity - MORBID OBESITY BMI 38.2, Risk Factor for Hypertension - UNCONTRTOLLED 158/82, Risk Factor for Sedentary Lifestyle - For Smoking Smoking Risk Guidelines: Smoking Low Risk: None or quit greater than 6 months ago. Smoking Moderate Risk: Smoker or quit 6 months or less ago. Smoking High Risk: Smoker - For Dyslipidemia Dyslipidemia Risk Guidelines: Low Risk: Moderate Risk: High Risk: 15-25% fat 25.1-29% fat >/= 30% fat. <7% sat fat 7-9% sat fat >9% sat fat. <150 mg chol 150-299 mg chol >/= 300 mg chol. LDL <100 LDL 100-129 LDL >/= 130. Chol/HDL ratio <5.0 Chol/HDL ratio 5.0-6.0 Chol/HDL ratio >6.0. Triglycerides <100 Triglycerides 100-149 Triglycerides >/= 150 - For Diabetes Mellitus Diabetes Risk Guidelines: Diabetes Low Risk: HgA1c <6.5% and/or FBG <120. Diabetes Moderate Risk: HgA1c 6.6-7.9% and/or FBG 120-180. Diabetes High Risk: HgA1c >/= 8% and/or FBG >180 - For Obesity/Overweight Obesity/Overweight Risk Guidelines: Obesity Low Risk: BMI <25.0. Obesity Moderate Risk: BMI 25-29.9. Obesity High Risk: BMI >/= 30.0 - For Hypertension Hypertension Risk Guidelines: Hypertension Low Risk: Systolic <120 and Diastolic <80. Hypertension Moderate Risk: Systolic 120-139 and Diastolic 80-89. Hypertension High Risk: Systolic >/= 140 and Diastolic >/= 90 - For Sedentary Lifestyle Sedentary Lifestyle Risk Guidelines: Sedentary Lifestyle Low Risk: >/= 1,500 kcal/week. Sedentary Lifestyle Moderate Risk: 700-1,499 kcal/week. Sedentary Lifestyle High Risk: < 700 kcal/week - For Depression Depression Risk Guidelines: Depression Low Risk: Not clinically depressed. Depression Moderate Risk: Mildly depressed. Depression High Risk: Clinically depressed Motivation - Motivation to Participate On a scale of 1 to 10, how prepared are you to commit to attending program?: 10 What do you see as barriers to successfully being able to complete the program?: EXACERBATION OF MY COPD, PHYSCIALLY BEING UNABLE TO PARTICIPATE What do you see as the benefits of succesfully completing the program? In other words, what do you hope to get out of participating in the program?: BEING ABLE TO CUT DOWN ON PREDNISONE, HOPEFUYLLY GET A LUNG TRANSPLANT Are there issues you are dealing with that will interfere with completing the program?: SCHEDULED PROCEDURES FOR LUNG TRASNPLANT EVALUATION Do you have a spouse or signficant other, family or friends who will help support you to complete the program?: YES. Diagnostic Data Review - Pulmonary Function Test FEV1:: 0.61 FVC:: 1.88 FEV1/FVC%:: 33
[2019-11-21 14:10] VITALS: BMI 38.2
[2019-11-21 14:11] VITALS: BP 154/82; PULSE 88; RESP 22; TEMP 36.3; O2SAT 95; BMI 38.2
== END ==
PROVIDERS: PCP Family Medicine; Referring Provider Internal Medicine Critical Care Medicine; Visit Provider Internal Medicine Critical Care Medicine
DX: E66.9 Obesity, unspecified (principal); J44.9 Chronic obstructive pulmonary disease, unspecified; J96.11 Chronic respiratory failure with hypoxia; R73.03 Prediabetes

== ENCOUNTER → 2019-11-21 13:05 | Outpatient (CLI) | payer OTHER, SELFPAY ==
[2019-11-10 09:44] VITALS: BMI 36.0
[2019-11-21 15:22] LABS: Absolute Lymphocyte Count 0.57 X10^3/uL (0.83-4.51); Absolute Neutrophil Count 8.7 X10^3/uL (2.0-7.7); Basophil# 0.02 X10^3/uL; Basophil% 0.2 % (0-1); Eosinophil# 0.07 X10^3/uL; Eosinophils% 0.7 % (0-5); Hematocrit 40.8 % (40-54); Lymphocyte # 0.57 X10^3/ul (4.0); Lymphocyte % 5.8 % (19-41); Mean Corp Hgb Conc 31.9 g/dL (32-36); Mean Corpuscular Hgb 30.4 pg (27.0-32.0); Mean Corpuscular Volume 95.6 fL (80-94); Mean Platelet Vol. 9.5 fl (6.2-12.0); Monocyte# 0.45 X10^3/uL; Monocyte% 4.6 % (0-10); NRBC Flagged by Analyzer 0 % (0-5); Neutrophil # 8.69 X10^3/uL (2.7-7.7); POSITIVE DIFFERENTIAL YES; Platelet Count 161 K/mm3 (150-450); RBC Distribution Width CV 14.1 % (11.6-14.6); RBC Distribution Width SD 48.9 fl (35.1-43.9); Red Blood Count 4.27 M/mm3 (4.6-6.2); White Blood Count 9.9 K/mm3 (4.4-11.0)
[2019-11-21 15:24] LABS: Differential Indicated SCAN CRITERIA MET
[2019-11-21 15:48] LABS: Anion Gap 2 (5-15); BUN 12 mg/dL (7-18); BUN/Creat Ratio 13.9 RATIO (10-20); Calcium,Total 8.9 mg/dL (8.5-10.1); Chloride 108 mmol/L (98-107); Creatinine, Serum 0.87 mg/dL (0.70-1.30); EST Glomerular Filtration Rate 92 mL/min (>60); Est Glom Filt Rate - Afr Amer 112 mL/min (>60); Glucose 114 mg/dL (74-106); Potassium 4.5 mmol/L (3.5-5.1); Sodium Level 141 mmol/L (136-145)
[2019-11-21 16:02] LABS: Prothrombin Time (Protime)PT. 12.4 SECONDS (11.7-14.9)
[2019-11-21 16:04] LABS: Platelet Estimate ADEQUATE (ADEQ); Red Cell Morphology NORM C+C NORMAL (NORM C&C)
== END ==
PROVIDERS: PCP Family Medicine; Referring Provider Physician Assistant Medical; Visit Provider Physician Assistant Medical
DX: I25.10 Atherosclerotic heart disease of native coronary artery without angina pectoris (principal); R06.00 Dyspnea, unspecified; R07.9 Chest pain, unspecified
CPT/HCPCS: 36415; 80048; 85025; 85610

== ENCOUNTER 2019-11-28 07:57 | Day surgery (SDC) | payer OTHER, SELFPAY ==
[2019-11-10 09:44] VITALS: BMI 36.0
[2019-11-21 14:11] VITALS: BMI 38.2
[2019-11-25 10:57] VITALS: BMI 36.0
--- NOTE | 2019-11-25 13:49 | HP.PCM_ITS ---
History and Physical Date of Admission: 11/28/19 This is a pleasant 69-year-old man who initially was seen for pulmonary disease and was noted to have shortness of breath. He had undergone cardiac catheterization in 2006 and at that time was noted to have a normal left main coronary artery, proximal left anterior descending artery with 30% stenosis, circumflex artery with 80% stenosis and luminal irregularities in the right coronary artery. He underwent angioplasty and stenting of the circumflex artery with a 2.75 mm drug-eluting stent. He had done well since then and was following up with another doula in the [place] area. He subsequently in 2016 underwent a cardiac catheterization which demonstrated patency of his previously placed stent. He had upper normal pulmonary pressures with a normal wedge pressure. He had mild aortic stenosis only noted. He was admitted to the hospital again this time in September 2019 with dyspnea in the context of chronic severe COPD was thought to have diastolic heart failure though his natruretic peptide was not elevated. He had been on a beta-miracle and after discussion with the trade specialist this was discontinued and he was scheduled for cardiac outpatient follow-up. He says that he continues to use his oxygen at home with some shortness of breath at rest but no paroxysmal nocturnal dyspnea and no pedal edema. 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 He is currently undergoing work-up with [facility] in regards to lung transplant. To evaluate further he presents today for a right and left heart catheterization. Intake Vital Signs: See EMR Intake Visit Reasons: Right and Left heart catheterization Allergies No Known Allergies Allergy (Verified 09/28/19 10:59) Medications See EMR [facility] Medical History Atherosclerosis of coronary artery of [place] heart without angina pectoris (Chronic) Chronic hypoxemic respiratory failure (Chronic) SCOTT (obstructive sleep apnea) (Chronic) Asthma (Chronic) PND (post-nasal drip) (Chronic) Stage 4 very severe COPD by GOLD classification (Chronic) Obesity (Chronic) COPD (chronic obstructive pulmonary disease) (Chronic) Osteoporosis of lumbar spine (Chronic) Spinal stenosis (Chronic) Sprain and strain of lumbosacral joint/ligament (Chronic) Tobacco abuse (Chronic) Tobacco dependence in remission (Chronic) Acute bronchitis (Resolved) Acute exacerbation of chronic obstructive pulmonary disease (Resolved) Acute respiratory failure with hypoxia (Resolved) Allergic asthma with acute exacerbation (Resolved) Wheezing (Resolved) Nonrheumatic tricuspid (valve) insufficiency (Ruled-out) Secondary pulmonary arterial hypertension (Ruled-out) Chest pain, unspecified (Inactive) PINZON (dyspnea on exertion) (Inactive) PINZON (dyspnea on exertion) (Inactive) Hypersomnia (Inactive) Oxygen desaturation (Inactive) Surgical History History of coronary artery stent placement (Resolved 07/13/06) History of left heart catheterization (Resolved 09/08/16) History of back surgery (Resolved) S/P left rotator cuff repair (Resolved) Family History Father Heart disease Social History (Updated 10/06/19 @ 16:[address] Jose Horner MD) Smoking Status: Former smoker quit date: 05/11/16 pack-years: 38 second hand exposure: No alcohol intake: current alcohol intake frequency: holidays/special occasions only Alcohol type: beer substance use type: does not use ROS Const Const: Negative for fatigue, weakness, headache(s), frequent falls, difficulty sleeping or excessive sweating Eyes Eyes: Negative for loss of peripheral vision, transient loss of vision, blurry vision, double vision or tunnel vision ENT ENT: Negative for headache(s), dizziness, Nosebleed/epistaxis or balance problems Cardio Chest Pain: Yes Palpitations: No Edema: Bilateral (takes lasix when he notes edema approx QOD) Muscle aches with walking: None Resp Respiratory: Positive for SOB with activity; negative for SOB at rest, SOB orthopnea\SOB lying down, Cough or paroxysmal nocturnal dyspnea Additional Details: 1L O2 during the day and Bi-PAP 7 L at bedtime GI GI: Negative nausea, vomiting, heartburn or black,tarry stools : Negative for hematuria Musc Musc: Negative for muscle aches/ myalgia, muscle weakness, joint pain or balance problems Skin Skin: Negative non-healing lesions, rash or unusual bruising Neuro Neuro: Negative for dizziness, lightheadedness, near syncope, syncope, orthostatic symptoms, frequent falls, headache(s), weakness, blurry vision, double vision or lack of coordination Connor Hematologic/Lymphatic: Negative for easy bleeding or easy bruising Endo Endo: Negative for fatigue, excessive sweating or increased thirst/drinking Psych Psych: Negative for anxiety or depression Allergy Allergy/Immunology: Negative for hives, Negative for rash Assessment & Plan 1. History of coronary artery stent placement Z95.5 PCI-JOEL-Mid LCx w/ 2.75 x 33 mm Cypher Stent 07/13/2006 Plan He was status post angioplasty and stenting. As part of his lung transplant wo rk-up he will proceed with right and left heart catheterization. 2. Dyspnea R06.00 Plan He appears to be dyspneic with preserved ejection fraction and normal natruretic peptide level. I suspected that it may have been due to the beta-miracle this was discontinued has been put on a calcium channel miracle and increased to 280 mg once a day. It does not appear he has completed 24 hour Holter monitor. He will proceed with Right heart catheterization for lung transplant work and to help assist with dyspnea. Further recommendation will be made based on results. Procedure Criteria Procedure Type: Elective COVID Risk Discussion: The surgeon/proceduralist and patient have discussed in detail the risk of exposure to and/or potential harm posed by the COVID-19 virus with having a surgery/procedure at this time versus the risk of delaying the surgery/procedure. It is not possible to know either the risk of delaying the surgery or procedure or chance of getting an infection with perfect accuracy, but a joint decision was made between the patient and the surgeon/proceduralist to proceed at this time with the scheduled surgery/procedure as indicated on the consent form.
--- NOTE | 2019-11-28 09:44 | CL.D_ITS ---
Patient Name: PEDRO ORTIZ Study Date: 11/28/2019 Performing: Jose Horner MD Ht: 66.92 inches 170 cm : 1950 Wt: 229.28 lbs 104 kg Age: 69 Gender: male BSA: 2.14 PROCEDURE(S) PERFORMED [id number]/LHC/COR/LV CLINICAL PROFILE AND INDICATIONS Indications: Pre-Operative Evaluation Heart Failure: None CONCLUSIONS No significant obstructive coronary disease. Previously placed stent in the left circumflex artery i s patent. RECOMMENDATIONS Medical therapy Lung transplant eval as per plaster foreman DESCRIPTION OF PROCEDURE The patient arrived to the procedure lab. The risks and benefits of the procedure as well as a full d escription of our services here and current unavailability of surgical backup were fully explained to the patient and/or their significant other prior to the catheterization. The Timeout was completed, verifying the correct patient and procedure. The patient's procedural site was prepped and draped in the usual fashion. Local anesthetic was given subcutaneously to right groin region with Lidocaine 2%. Using a modified Seldinger technique, arterial access was obtained via the right femoral artery, a 5 Fr sheath was inserted. Venous access was obtained via the right femoral vein, a 7Fr sheath was inser khalida. A 7Fr thermal dilution catheter was inserted and right heart pressures were recorded, it was the n advanced to PA position for cardiac outputs. Thermal dilution cardiac outputs were then recorded. O 2 saturations were then obtained. The Thermal dilution catheter was then removed. Left Coronary Artery selective angiography was performed in multiple views using a [address] [facility] Coronary Artery selective angiography was then performed in multiple views using a 5 Fr. 3DRC ([facility]) catheter. Left Ventriculography was performed in MOREIRA projection using a 5 Fr. Pigtail catheter . LV to AO pullback pressures were then recorded.Contrast was injected through the sheath and the [facility] Iliac and Femoral artery were assessed for possible closure device.The arterial sheath was pulled and a Mynx closure device was deployed for hemostasis. Device failure, manual pressure held. The rachael rial sheath was pulled and manual compression applied until hemostasis is achieved.. The venous sheat h was then pulled and manual compression applied until hemostasis achieved CORONARY ANGIOGRAPHY DOMINANCE: Co- Dominant LEFT HEART ASSESSMENT Left Ventricular Ejection Fraction: by LV Gram 60 % Normal LV wall motion Normal Left Ventricular systolic function RIGHT HEART ASSESSMENT Thermal CO: 4.76 Thermal CI: 2.22 Monica CO: 5.96 Monica CI: 2.79 PW: 11 PA: 39/19 25 RV: 39/12 17 RA: 12 PVR: 235 SVR: 1429 Right Heart pressures - elevated LEFT MAIN: Angiographically normal LEFT ANTERIOR DESCENDING ARTERY: No significant disease noted CIRCUMFLEX ARTERY: MID CIRC: Previously placed stent is patent RIGHT CORONARY ARTERY: MID RCA: Mild calcification, Moderate luminal irregularities up to 50% COMPLICATIONS No Complications PROCEDURE MEDICATIONS Versed 1 mg IV Fentanyl 50 mcg IV Oxygen: 5 L/min via nasal cannula Oxygen: Discontinued Oxygen: 5 L/min via nasal cannula Baby Aspirin (81mg) 1 Tabs PO @ 11/28/2019 08:20:39 SUMMARY OF HEMODYNAMIC DATA Time AIR REST ECG 08:23:27 ECG 08:24:16 RA (12) SV 09:04:10 RV 39/12, 17 09:04:41 PW (11) PV 09:05:24 PA 39/19 (25) PA 09:05:45 PA 41/15 (26) 09:10:33 PW (13) 09:10:45 AO 140/71 (97) SA 09:12:52 LV 138/13, 23 09:20:24 LV 135/12, 19 09:20:31 LV 142/17, 26 09:21:15 LV 144/16, 28 09:21:22 LVp 153/16, 29 09:21:25 AOp 149/77 (105) 09:21:31 Type SV CO (l/m) CI (l/m/ HR Time AIR REST Thermal 79.30 4.76 2.22 60 08:23:27 Monica 99.30 5.96 2.79 60 08:23:27 Label % O2 Pres/Loc Time AIR REST RA 61 SV 09:14:55 PA 63 PA 09:15:02 AO 88 PV 09:15:08 Signed By Jose Horner MD On 11/28/2019 09:43:34 Jose Horner MD
[2019-11-29 11:49] LABS: Base Excess 2 mmol/L (-2 to +2); Bicarbonate 28.1 mmol/L (22-26); PO2 62 mmHG (75-100); SO2 88 % (95-99); Total Carbon Dioxide 30 mmol/L
[2019-11-29 11:49] LABS: VBG BASE EXCESS 2 mmol/L (-1.0-3.5); VBG Bicarbonate 28 mmol/L (22-26); VBG Oxygen Content 30 mmol/L (23-33); VBG PO2 35 mmHg (25-40); VBG SO2 63 % (50-70); VBG pCO2 51.4 mmHg (41-51); VBG pH 7.35 (7.32-7.42)
[2019-11-29 11:49] LABS: VBG BASE EXCESS 2 mmol/L (-1.0-3.5); VBG Bicarbonate 28 mmol/L (22-26); VBG Oxygen Content 30 mmol/L (23-33); VBG PO2 34 mmHg (25-40); VBG SO2 61 % (50-70); VBG pCO2 52.4 mmHg (41-51); VBG pH 7.34 (7.32-7.42)
== END 2019-11-28 15:00 | disposition home or self-care (01) ==
LOC: CLSP 07:58
PROVIDERS: PCP Family Medicine; Referring Provider Internal Medicine Cardiovascular Disease; Visit Provider Internal Medicine Cardiovascular Disease
DX: I25.10 Atherosclerotic heart disease of native coronary artery without angina pectoris (principal); Z95.5 Presence of coronary angioplasty implant and graft; Z87.891 Personal history of nicotine dependence; G47.33 Obstructive sleep apnea (adult) (pediatric); J96.11 Chronic respiratory failure with hypoxia; E66.9 Obesity, unspecified; Z68.36 Body mass index [BMI] 36.0-36.9, adult; J98.4 Other disorders of lung
CPT/HCPCS: 93460; 99152; 99153; C1760; J7040; Q9967; C1751; C1769; C1894

== ENCOUNTER 2019-12-09 14:15 | Outpatient (RCR) | payer OTHER, SELFPAY ==
[2019-11-21 14:11] VITALS: BMI 38.2
== END 2019-12-09 23:59 ==
LOC: PR 14:15
PROVIDERS: PCP Family Medicine; Referring Provider Internal Medicine Critical Care Medicine; Visit Provider Internal Medicine Critical Care Medicine
DX: J43.9 Emphysema, unspecified (principal)
CPT/HCPCS: 97150; G0424

== ENCOUNTER 2020-01-09 14:15 | Outpatient (RCR) | payer OTHER, SELFPAY ==
[2019-11-25 10:57] VITALS: BMI 36.0
--- NOTE | 2019-12-16 08:32 | PCM.PR.TP ---
Exercise - 30-Day Assessment - Physician Prescribed Exercise Modalities: Treadmill, Airdyne, NuStep Frequency (days/week): 3 Duration (Minutes):: 30-45 Intensity: 60-80% of age predicted maximum heart rate reserve Aerobic Exercise [30-60 min 3-7x/week]:: Progressing Target heart rate: 97-126 Arden-13.5 METs - Progression: 0.5-1.0 MET, RPE 11-14 WEEK: 3.0 - INCREASE FROM 2.0 Disease Management - 30-Day - Hypoxemia Reassessment: Demonstrates knowledge of O2 Rx at rest, Demonstrates knowledge of O2 Rx with exercise, Using O2 as prescribed, Has home O2 as prescribed, Uses port O2 as prescribed - Medications Medication list reviewed:: Yes Taking medications 100% of the time:: Met Medication reassessment: Yes Pt demonstrates correct technique timing for MDI, Yes Pt demonstrates correct technique timing for DPI, Yes Pt demonstrates correct technique timing for NEB, Yes Pt demonstrates correct technique timing for spacer - Bronchial Hygiene Bronchial Hygiene Plan: Yes Pt demonstrates correctly for effective cough, Yes Pt demo correct for device, Yes Pt demo correct for improved hydration, Yes Pt demo correct for hand hygiene, Yes Pt demo correct for verbalize when to call MD Psychosocial - 30-Day - Assessment Reassessment: Management of stress & depression, Practicing interventions, Demonstrate coping strategies, COPD assessment w/ CAT, Geriatric depression screening, Self efficacy score Tobacco - 30-Day Assessment - Program Goals Tobacco Program Goals: Complete smoking cessation. Attend education classes. Improve Knowledge Test score - Stage of Change Stages of Change:: Action - Learning Barriers Learning Barriers: Participates in education, Change in behavior - Family Support Do you have family support?: Yes - Tobacco Use Tobacco Use: Non-smoker - Education Gave Education Materials For:: Pulmonary Disease, Risk Factors, Breathing Techniques, Medical Compliance, Pulmonary A&P, Exacerbation Signs & Symptoms, Stress & Relaxation Nutrition/Wt Mgmt - 30-Day - Weight Management Weight Assessment:: BMI 21 to 25, Wt loss 1-2 lbs per week Weight:: 230 lb - DOWN FROM 236 Weight Goals Progress:: Progressing Patient Health Questionnaire 30-Day Re-eval Assessment 1. Little interest or pleasure in doing things: Not at all 2. Feeling down, depressed, or hopeless: Not at all 3. Trouble falling or staying asleep, or sleeping too much: Several days 4. Feeling tired or having little energy: More than half the days 5. Poor appetite or overeating: Several days 6. Feeling bad about yourself -- or that you are a failure or have let yourself or your family down: Not at all 7. Trouble concentrating on things, such as reading the newspaper or watching television: Not at all 8. Moving or speaking so slowly that other people could have noticed. Or the opposite - being so fidgety or restless that you have been moving around a lot more than usual: Several days 9. Thoughts that you would be better off , or of hurting yourself in some way: Not at all How difficult have these problems made it for you to do your work, take care of things at home, or get along with other people?: Somewhat difficult Total Score: 5 Self-Efficacy 30-Day Re-eval Assessment We would like to know how confident you are in doing certain activities. Please select your confidence level for:: Select your confidence level for the following using the scale 1-10 where 1 is not at all confident and 10 is totally confident. Your score is the average of all 6 responses. Fatigue: How confident are you that you can keep the fatigue caused by your disease from interfering with the things you want to do? Select Number: 3 Physical Discomfort or Pain: How confident are you that you can keep the physical discomfort or pain of your disease from interfering with the things you want to do? Select Number: 5 Emotional Distress: How confident are you that you can keep the emotional distress caused by your disease from interfering with the things you want to do? Select Number: 4 Other Symptoms or Health Problems: How confident are you that you can keep other symptoms or health problems from interfering with the things you want to do? Select Number: 6 Different Tasks and Activities: How confident are you that you can do the different tasks and activities needed to manage your health condition so as to reduce your need to see a doctor? Select Number: 6 Medication: How confident are you that you can do things other than just taking medication to reduce how much your illness affects your everyday life? Select Number: 6 Total Score:: 5
== END 2020-01-09 23:59 ==
LOC: PR 14:15
PROVIDERS: PCP Family Medicine; Referring Provider Internal Medicine Critical Care Medicine; Visit Provider Internal Medicine Critical Care Medicine
DX: Z01.818 Encounter for other preprocedural examination (principal); J43.9 Emphysema, unspecified
CPT/HCPCS: 97150; G0424

== ENCOUNTER 2020-02-08 14:15 | Outpatient (RCR) | payer OTHER, SELFPAY ==
[2020-01-05 14:28] VITALS: BMI 36.3
--- NOTE | 2020-01-20 15:12 | PR.ITP_ITS ---
Exercise - 60-Day Assessment - Physician Prescribed Exercise Modalities: Treadmill, NuStep, SciFit Frequency (days/week): 3 Duration (Minutes):: 30-45 Intensity: 60-80% of age predicted maximum heart rate reserve Aerobic Exercise [30-60 min 3-7x/week]:: Progressing Target heart rate: 97-126 Arden-13 METs - Progression: 0.5-1.0 MET, RPE 11-14 WEEK: 3.5 - INCREASE FROM 3.0 - Home Exercise Home Exercise:: Yes Frequency:: WALKING DAILY AT HOME; MORE PHYSICAL ACTIVITY Time (minutes):: 30 Disease Management - 60-Day - Hypoxemia Reassessment: Demonstrates knowledge of O2 Rx at rest, Demonstrates knowledge of O2 Rx with exercise, Using O2 as prescribed, Has home O2 as prescribed, Uses port O2 as prescribed - Medications Medication list reviewed:: Yes Taking medications 100% of the time:: Met Medication reassessment: Yes Pt demonstrates correct technique timing for MDI, Yes Pt demonstrates correct technique timing for DPI, Yes Pt demonstrates correct technique timing for NEB, Yes Pt demonstrates correct technique timing for spacer - Bronchial Hygiene Bronchial Hygiene Plan: Yes Pt demonstrates correctly for effective cough, Yes Pt demo correct for device, Yes Pt demo correct for improved hydration, Yes Pt demo correct for hand hygiene - OPERATIONAL RISK MANAGER USE Psychosocial - 60-Day - Assessment Depression reassess: Management of stress: Progressing, Management of depression: Progressing, Practicing interventions: Progressing Tobacco - 60-Day Assessment - Program Goals Tobacco Program Goals: Complete smoking cessation. Attend education classes. Improve Knowledge Test score - Stage of Change Stages of Change:: Action - Learning Barriers Learning Barriers: Participates in education - Family Support Do you have family support?: Yes - Tobacco Use Tobacco Use: Non-smoker - Intervention Education Schedule Given:: Yes - Education Gave Education Materials For:: Pulmonary Disease, Risk Factors, Breathing Techniques, Medical Compliance, Pulmonary A&P, Exacerbation Signs & Symptoms, Stress & Relaxation Nutrition/Wt Mgmt - 60-Day - Weight Management Weight Assessment:: Wt stable Weight:: 225 lb 8 oz - DOWN FROM 230 12/19/19 Weight Goals Progress:: Progressing Patient Health Questionnaire 60-Day Re-eval Assessment 1. Little interest or pleasure in doing things: Not at all 2. Feeling down, depressed, or hopeless: Not at all 3. Trouble falling or staying asleep, or sleeping too much: Several days 4. Feeling tired or having little energy: Several days 5. Poor appetite or overeating: Not at all 6. Feeling bad about yourself -- or that you are a failure or have let yourself or your family down: Not at all 7. Trouble concentrating on things, such as reading the newspaper or watching television: Not at all 8. Moving or speaking so slowly that other people could have noticed. Or the opposite - being so fidgety or restless that you have been moving around a lot more than usual: Several days 9. Thoughts that you would be better off , or of hurting yourself in some way: Not at all How difficult have these problems made it for you to do your work, take care of things at home, or get along with other people?: Not difficult at all Total Score: 3 Self-Efficacy 60-Day Re-eval Assessment We would like to know how confident you are in doing certain activities. Please select your confidence level for:: Select your confidence level for the following using the scale 1-10 where 1 is not at all confident and 10 is totally confident. Your score is the average of all 6 responses. Fatigue: How confident are you that you can keep the fatigue caused by your disease from interfering with the things you want to do? Select Number: 6 Physical Discomfort or Pain: How confident are you that you can keep the physical discomfort or pain of your disease from interfering with the things you want to do? Select Number: 7 Emotional Distress: How confident are you that you can keep the emotional distress caused by your disease from interfering with the things you want to do? Select Number: 7 Other Symptoms or Health Problems: How confident are you that you can keep other symptoms or health problems from interfering with the things you want to do? Select Number: 7 Different Tasks and Activities: How confident are you that you can do the different tasks and activities needed to manage your health condition so as to reduce your need to see a doctor? Select Number: 8 Medication: How confident are you that you can do things other than just taking medication to reduce how much your illness affects your everyday life? Select Number: 8 Total Score:: 7
== END 2020-02-08 23:59 ==
LOC: PR 14:15
PROVIDERS: PCP Family Medicine; Referring Provider Internal Medicine Critical Care Medicine; Visit Provider Internal Medicine Critical Care Medicine
DX: Z01.818 Encounter for other preprocedural examination (principal); J43.9 Emphysema, unspecified
CPT/HCPCS: 97150; G0424

== ENCOUNTER 2020-02-27 14:15 | Outpatient (RCR) | payer OTHER, SELFPAY ==
[2020-01-31 11:50] VITALS: BMI 36.0
--- NOTE | 2020-02-17 06:50 | PCM.PR.TP ---
Exercise - 90-Day Assessment - Physician Prescribed Exercise Modalities: Treadmill, Airdyne, NuStep Frequency (days/week): 3 Duration (minutes): 35-45 Aerobic Exercise [30-60 min 3-7x/week]:: Progressing Target heart rate: 97-126 Arden-13 METs - Progression: 0.5-1.0 MET, RPE 11-14 WEEK: 4.0 - Home Exercise Home Exercise?: No Disease Management - 90-Day - Hypoxemia Reassessment: Demonstrates knowledge of O2 Rx at rest, Demonstrates knowledge of O2 Rx with exercise, Using O2 as prescribed, Has home O2 as prescribed, Uses port O2 as prescribed - Medications Medication list reviewed:: Yes Taking medications 100% of the time:: Met Medication reassessment: Yes Pt demonstrates correct technique timing for MDI, Yes Pt demonstrates correct technique timing for DPI, Yes Pt demonstrates correct technique timing for NEB, Yes Pt demonstrates correct technique timing for spacer - Bronchial Hygiene Bronchial Hygiene Plan: Yes Pt demonstrates correctly for effective cough, Yes Pt demo correct for device, Yes Pt demo correct for improved hydration, Yes Pt demo correct for hand hygiene, Yes Pt demo correct for verbalize when to call MD Psychosocial - 90-Day - Assessment Depression reassess: Management of stress: Met, Management of depression: Met, Practicing interventions: Met Tobacco - 90-Day Assessment - Program Goals Tobacco Program Goals: Complete smoking cessation. Attend education classes. Improve Knowledge Test score - Stage of Change Stages of Change:: Action - Learning Barriers Learning Barriers: Participates in education - Family Support Do you have family support?: Yes - Tobacco Use Tobacco Use: Non-smoker - Intervention Smoking Cessation Referral:: No Individual Education/Counseling:: No Education Schedule Given:: Yes - Online education due to COVID-19 - Education Gave Education Materials For:: Pulmonary Disease, Risk Factors, Breathing Techniques, Medical Compliance, Pulmonary A&P, Exacerbation Signs & Symptoms, Stress & Relaxation Nutrition/Wt Mgmt - 90-Day - Weight Management Weight:: 226 lb - BMI 36.9 no recent loss Weight Goals Progress:: Not progressing Patient Health Questionnaire 90-Day Re-eval Assessment 1. Little interest or pleasure in doing things: Not at all 2. Feeling down, depressed, or hopeless: Not at all 3. Trouble falling or staying asleep, or sleeping too much: Several days 4. Feeling tired or having little energy: Several days 5. Poor appetite or overeating: Not at all 6. Feeling bad about yourself -- or that you are a failure or have let yourself or your family down: Not at all 7. Trouble concentrating on things, such as reading the newspaper or watching television: Not at all 8. Moving or speaking so slowly that other people could have noticed. Or the opposite - being so fidgety or restless that you have been moving around a lot more than usual: Several days 9. Thoughts that you would be better off , or of hurting yourself in some way: Not at all How difficult have these problems made it for you to do your work, take care of things at home, or get along with other people?: Not difficult at all Total Score: 3 Self-Efficacy 90-Day Re-eval Assessment We would like to know how confident you are in doing certain activities. Please select your confidence level for:: Select your confidence level for the following using the scale 1-10 where 1 is not at all confident and 10 is totally confident. Your score is the average of all 6 responses. Fatigue: How confident are you that you can keep the fatigue caused by your disease from interfering with the things you want to do? Select Number: 8 Physical Discomfort or Pain: How confident are you that you can keep the physical discomfort or pain of your disease from interfering with the things you want to do? Select Number: 8 Emotional Distress: How confident are you that you can keep the emotional distress caused by your disease from interfering with the things you want to do? Select Number: 8 Other Symptoms or Health Problems: How confident are you that you can keep other symptoms or health problems from interfering with the things you want to do? Select Number: 8 Different Tasks and Activities: How confident are you that you can do the different tasks and activities needed to manage your health condition so as to reduce your need to see a doctor? Select Number: 8 Medication: How confident are you that you can do things other than just taking medication to reduce how much your illness affects your everyday life? Select Number: 8 Total Score:: 8
== END 2020-03-10 23:59 ==
LOC: PR 14:15
PROVIDERS: PCP Family Medicine; Referring Provider Internal Medicine Critical Care Medicine; Visit Provider Internal Medicine Critical Care Medicine
DX: Z01.818 Encounter for other preprocedural examination (principal); J43.9 Emphysema, unspecified
CPT/HCPCS: 97150; G0424

== ENCOUNTER 2020-04-03 08:00 | Outpatient (RCR) | payer SELFPAY ==
[2020-01-31 11:50] VITALS: BMI 36.0
== END 2020-04-09 23:59 ==
LOC: PR 08:00
PROVIDERS: PCP Family Medicine; Referring Provider Internal Medicine Critical Care Medicine; Visit Provider Internal Medicine Critical Care Medicine
DX: Z00.00 Encounter for general adult medical examination without abnormal findings (principal)

== ENCOUNTER → 2020-05-02 08:25 | Outpatient (CLI) | payer OTHER, SELFPAY ==
[2020-03-15 11:22] VITALS: BMI 35.2
[2020-05-02] MEDS: 0.9% NaCl PICC Flush IV (08:40)
[2020-05-02 08:45] VITALS: BP 144/89; PULSE 76; RESP 18; TEMP 36.8; O2SAT 99
[2020-05-02] MEDS: Zoledronic Acid 5 MG 100 ML 300 MG IV (08:50)
[2020-05-02 09:16] VITALS: BP 151/76; PULSE 69; RESP 16; TEMP 36.8; O2SAT 99
== END ==
PROVIDERS: PCP Family Medicine; Referring Provider Internal Medicine Endocrinology, Diabetes & Metabolism; Visit Provider Internal Medicine Endocrinology, Diabetes & Metabolism
DX: M81.0 Age-related osteoporosis without current pathological fracture (principal)
CPT/HCPCS: 96365; A4216; J3489

== ENCOUNTER 2020-05-10 08:00 | Outpatient (RCR) | payer SELFPAY ==
[2020-03-15 11:22] VITALS: BMI 35.2
== END 2020-05-10 23:59 ==
LOC: PR 08:00
PROVIDERS: PCP Family Medicine; Referring Provider Internal Medicine Critical Care Medicine; Visit Provider Internal Medicine Critical Care Medicine
DX: Z00.00 Encounter for general adult medical examination without abnormal findings (principal)

== ENCOUNTER → 2020-05-10 10:01 | Outpatient (CLI) | payer OTHER, SELFPAY ==
[2020-05-09 12:41] VITALS: BMI 36.3
== END ==
PROVIDERS: PCP Family Medicine; Visit Provider Nurse Practitioner Acute Care
DX: J44.9 Chronic obstructive pulmonary disease, unspecified (principal); M81.0 Age-related osteoporosis without current pathological fracture
CPT/HCPCS: 87070; 87205

== ENCOUNTER 2020-05-31 08:00 | Outpatient (RCR) | payer SELFPAY ==
[2020-03-15 11:22] VITALS: BMI 35.2
[2020-05-09 12:41] VITALS: BMI 36.3
== END 2020-06-10 23:59 ==
LOC: PR 08:00
PROVIDERS: PCP Family Medicine; Visit Provider Internal Medicine Critical Care Medicine
DX: Z00.00 Encounter for general adult medical examination without abnormal findings (principal)

== ENCOUNTER 2020-07-09 12:02 | Outpatient (RCR) | payer OTHER, SELFPAY ==
[2020-05-09 12:41] VITALS: BMI 36.3
== END 2020-07-09 23:59 ==
LOC: IMMUN 12:02
PROVIDERS: PCP Family Medicine; Referring Provider Family Medicine; Visit Provider Family Medicine
DX: Z23 Encounter for immunization (principal)
CPT/HCPCS: 0011A; 0012A

== ENCOUNTER → 2020-07-16 09:38 | Outpatient (CLI) | payer OTHER, SELFPAY ==
[2020-05-09 12:41] VITALS: BMI 36.3
[2020-07-16 10:17] LABS: Absolute Neutrophil Count 6.4 X10^3/uL (2.0-7.7); Basophil# 0.04 X10^3/uL; Basophil% 0.5 % (0-1); Eosinophil# 0.14 X10^3/uL; Eosinophils% 1.7 % (0-5); Hematocrit 35.4 % (40-54); Hemoglobin 10.8 g/dL (13.0-16.5); Lymphocyte % 8.7 % (19-41); Mean Corp Hgb Conc 30.5 g/dL (32-36); Mean Corpuscular Hgb 27.8 pg (27.0-32.0); Mean Platelet Vol. 10.2 fl (6.2-12.0); Monocyte# 0.63 X10^3/uL; Monocyte% 7.8 % (0-10); NRBC Flagged by Analyzer 0 % (0-5); Neutrophil # 6.44 X10^3/uL (2.7-7.7); Neutrophil % 79.7 % (47-70); Platelet Count 185 K/mm3 (150-450); RBC Distribution Width CV 15.2 % (11.6-14.6); RBC Distribution Width SD 50.4 fl (35.1-43.9); Red Blood Count 3.89 M/mm3 (4.6-6.2); White Blood Count 8.1 K/mm3 (4.4-11.0)
[2020-07-16 10:33] LABS: Anion Gap 7 (5-15); BUN 26 mg/dL (7-18); BUN/Creat Ratio 16.2 RATIO (10-20); Calcium,Total 9.5 mg/dL (8.5-10.1); Chloride 107 mmol/L (98-107); EST Glomerular Filtration Rate 45 mL/min (>60); Est Glom Filt Rate - Afr Amer 55 mL/min (>60); Glucose 118 mg/dL (74-106); Potassium 4.7 mmol/L (3.5-5.1); Sodium Level 139 mmol/L (136-145)
[2020-07-18 20:37] LABS: Tacrolimus (FK506) 11.4 ng/mL (2.0-20.0)
== END ==
PROVIDERS: PCP Family Medicine
DX: E78.5 Hyperlipidemia, unspecified (principal); R79.9 Abnormal finding of blood chemistry, unspecified; E55.9 Vitamin D deficiency, unspecified; D64.9 Anemia, unspecified; Z94.2 Lung transplant status; Z51.81 Encounter for therapeutic drug level monitoring
CPT/HCPCS: 36415; 80048; 80197; 85025

== ENCOUNTER → 2020-07-31 10:01 | Outpatient (CLI) | payer OTHER, SELFPAY ==
[2020-05-09 12:41] VITALS: BMI 36.3
--- NOTE | 2020-07-31 10:06 | PR.ITP_ITS ---
General Information - General Information Admitting Diagnosis: S/P LEFT LUNG TRANSPLANT Gold Classification:: GOLD 4: Very Severe - Education/Goals Barriers to Learning: Hearing Impairment, Vision Impairment Individual Counseling: Initial Assessment: Dyspnea control techniques at rest, activity, and ADLs, Exacerbation prevention & management Patient Goals: Increase endurance/stamina: Initial Assessment, Return to recreation/hobby: Initial Assessment, Control panic/anxiety: Initial Assessment Exercise - Initial Assessment - Visit Date of Eval: 07/31/20 - PRE-PULM REHAB EVAL - Problem/Goals Goals:: Aerobic exercise 30-60 mins x 9 weeks, RI: 2-3/wk, Resistance: 2- 3x/weekly - Physician Prescribed Exercise Modalities: Treadmill, Airdyne, NuStep Frequency (days/week): 3 Duration (Minutes):: 60 Intensity: 60-80% of age predicted maximum heart rate reserve METs - Progression: 0.5-1.0 MET, RPE 11-14 WEEK: 3.0 Target Heart Rate:: 96-126 - Plan Plan and Plan to Review:: Benefits of exercise, Core components of exercise, How to measure dyspnea level, How to monitor dyspnea level, Exercise intensity, Exercise safety guideline, Home exercise guidelines, [place]: 3-4/11-13 Disease Management - Initial - Problems/Goals-Hypoxemia Hypoxemia Goals:: Hypoxemia managed - Problems/Goals-Bronchial Hygiene Bronchial Hygiene Problems:: Respiratory infection Prevention/Management Bronchial Hygiene Goals:: Pt demonstrates effective cough, effective secretion clearance., Pt describes signs and symptoms of infection. - Initial Assessment Does pt report taking home meds as prescribed?: Yes Medications: Yes MDI, Yes DPI, Yes NEB, Yes Spacer - Plans Hypoxemia Plan:: Monitor SpO2 rest & with exercise Reviewed prescribed medications:: Purpose, Schedule, Side effects, Importance of compliance Instruct correct technique/timing & care:: MDI, DPI, Nebulizer, Return demo use of inhaler Bronchial Hygiene Plan: Hydration, Hand hygiene, Signs/symptoms to report:, Cleaning of respiratory equipment Psychosocial - Initial Assess - Problems/Goals Problems: Impaired Q.O.L. Psychosocial Goals: Verbalizes coping strategies., Improved Q.O.L. - Psychosocial Test Depression:: Impaired QOL Referred to MD for counseling:: No - Plan Reviewed screening results: Yes Instructions given regarding:: Benefits of exercise, Relaxation techniques, Training in coping strategies Tobacco - Initial Assessment - Program Goals Tobacco Program Goals: Complete smoking cessation. Attend education classes. Improve Knowledge Test score - Stage of Change Stages of Change:: Action - Learning Barriers Learning Barriers: Ready to Learn - Family Support Do you have family support?: Yes - Tobacco Use Tobacco Use: Non-smoker Nutrition/Wt Mgmt - Initial - Problems/Goals Goals: BMI 21-25 - Weight Management Knowledge Deficit Management of:: Overweight Patient Health Questionnaire Initial Assessment 1. Little interest or pleasure in doing things: Several days 2. Feeling down, depressed, or hopeless: Several days 3. Trouble falling or staying asleep, or sleeping too much: More than half the days 4. Feeling tired or having little energy: More than half the days 5. Poor appetite or overeating: Several days 6. Feeling bad about yourself -- or that you are a failure or have let yourself or your family down: Not at all 7. Trouble concentrating on things, such as reading the newspaper or watching television: Several days 8. Moving or speaking so slowly that other people could have noticed. Or the opposite - being so fidgety or restless that you have been moving around a lot more than usual: Several days 9. Thoughts that you would be better off , or of hurting yourself in some way: Not at all How difficult have these problems made it for you to do your work, take care of things at home, or get along with other people?: Not difficult at all Total Score: 9 Self-Efficacy Initial Assessment We would like to know how confident you are in doing certain activities. Please select your confidence level for:: Select your confidence level for the following using the scale 1-10 where 1 is not at all confident and 10 is totally confident. Your score is the average of all 6 responses. Fatigue: How confident are you that you can keep the fatigue caused by your disease from interfering with the things you want to do? Select Number: 8 Physical Discomfort or Pain: How confident are you that you can keep the physical discomfort or pain of your disease from interfering with the things you want to do? Select Number: 8 Emotional Distress: How confident are you that you can keep the emotional distress caused by your disease from interfering with the things you want to do? Select Number: 8 Other Symptoms or Health Problems: How confident are you that you can keep other symptoms or health problems from interfering with the things you want to do? Select Number: 7 Different Tasks and Activities: How confident are you that you can do the different tasks and activities needed to manage your health condition so as to reduce your need to see a doctor? Select Number: 8 Medication: How confident are you that you can do things other than just taking medication to reduce how much your illness affects your everyday life? Select Number: 9 Total Score:: 8 Nutrition Survey - Nutrition Survey Instructions Scoring Instructions: Scoring is as follows: Yes = 1 points. No = 0 point. Patient score that is >/=12 is considered to be at potential nutritional risk and could benefit from a referral to a registered dietitian. - Nutrition Survey Initial Have you lost >10 lbs over the past 2 months without trying?: Yes Are you following a special diet at home for diabetes, low fat, or low salt?: No Are you interested in meeting with a dietitian for help understanding your diet?: No Do you eat less than 3 meals a day?: Yes Do you eat fatty meats (hicks, sausage, ribs, etc), fried foods, desserts, large amounts of salad dressings, margarine, butter, or cheese most days?: No Do you have food allergies? [Enter types in comment field]: No Do you eat in restaurants more than 3 times a week?: No Do you season food with salt, seasoning salt, or garlic salt?: No Do you used canned, boxed, frozen meals, or soups, seasoning packets?: No Total Score:: 2
--- NOTE | 2020-07-31 10:07 | PCM.PR.HP ---
History of Present Illness Arrival date:: 07/31/20 Arrival time:: 10:07 Date of Referral:: 07/05/20 Date of Evaluation: 07/31/20 Referring Physician: JAMIR Primary Diagnosis: S/P LUNG TRANSPLANT (LEFT) @ [facility] Breathless Scale: When is the patient short of breath? Y/N Grade: Description of Breathlessness: 0 I only get breathless with strenuous exercise. 1 I get short of breath when hurrying on level ground or walking up a slight hill. 2 On level ground, I walk slower than people of the same age because of breathless, or have to stop for breath when walking at my own pace. 3 I stop for breath after walking 100 yards or after a few minutes on level ground. 4 I am too breathless to leave the house or I am breathless when dressing. Respiratory Problems: Yes: Fatigue, Able to Speak in Full Sentences, Dyspnea with Activity No: Limited Range of Motion, Wheezing, Dyspnea at Rest, Dyspnea Lying Down Flat Home Medications: Home Medications Acetaminophen [Acetaminophen 8 Hour] 650 mg PO PRN PRN 07/31/20 Albuterol Inhaler [Ventolin Hfa (SP)] 2 puff INHALATION Q6H PRN PRN 07/31/20 Aspirin [Adult Low Dose Aspirin EC] 81 mg PO 07/31/20 Budesonide Aerosol [Pulmicort] 1 mg INHALATION Q12H PRN 07/31/20 Enoxaparin [Lovenox] 40 mg SC DAILY@0600 07/31/20 Ergocalciferol [Vitamin D] 50,000 unit PO Q7D 07/31/20 Ferrous Sulfate [Iron] 325 mg PO 07/31/20 Fexofenadine HCl 180 mg PO 07/31/20 Fluticasone 0.05% [Flonase Nasal [place]] 1 spray NASAL BID PRN 07/31/20 Magnesium Oxide [Magnesium Oxide 400] 241.3 mg PO 07/31/20 Mycophenolate Mofetil [Cellcept] 500 mg PO BID 07/31/20 Oxycodone [Oxyir] 5 mg PO Q6H PRN PRN 07/31/20 Pantoprazole Sodium [Protonix] 40 mg PO DAILY 07/31/20 Posaconazole [Noxafil] 300 mg PO DAILY 07/31/20 Sertraline HCl [Zoloft] 50 mg PO DAILY 07/31/20 Sulfamethoxazole/Trimethoprim [Sulfamethoxazole-Tmp Ds Tablet] 1 each PO QWEEK 07/31/20 Tacrolimus [Astagraf Xl] 0.5 mg PO 07/31/20 Tamsulosin HCl [Flomax] 0.8 mg PO 07/31/20 Valacyclovir HCl [Valtrex] 500 mg PO BID 07/31/20 Allergies/Adverse Reactions: Allergies No Known Allergies Allergy (Verified 05/09/20 12:41) - Secretions Thick:: No Thin:: No Cough:: No AM: No PM: No Night Time: No A.T.C.: No Hx of Sleep Apnea: No Do you snore loudly (louder than talking or can be heard through closed doors)?: No Do you often feel tired/ fatigued/ sleepy during daytime?: Yes Has anyone observed you stop breathing during sleep?: No - SINCE HAVING THE LUNG BEN HAS NOT HAD TO USE HIS CPAP @ . History of Hypertension (for STOP score): Yes STOP Results: Positive Medical Utilization Do you use a peak flow meter at home?: No Do you use a spacer device with your inhalers?: Yes Number of hospital visits in the last year?: 1 - 1 admit @ [facility] prior to [facility] for transplant Number of emergency room visits in the last year?: 0 Do you see your physician on a regular schedule?: Yes How often?: monthly Advanced Directives - Advanced Directives Power of Laundry Assistant: Yes Living Will: Yes Advance Directives Information Provided: No Advance Directives on File: No DNR Order?:: No - MOLST See MOLST form: No Past Medical History - Covid-19 Screening Fever: No Unexplained muscle aches: No Current respiratory symptoms: No Upper respiratory infections symptoms: No Gastro-intestinal symptoms: No Cmy-Yzud-Wyocqc symptoms: No Has tested positive for COVID-19 in last 30 days: No Date of testin07/09/20 - first Covid Vaccine (Moderna) Had contact w/person w/symptoms or Covid-19 (+) last 14 days: No Has High Risk Exposures ID'd by Health dept/Inf Control team: No 65 years or older:: Yes Lives in Assisted Living facility:: No Has a chronic lung disease or moderate to severe asthma:: Yes Has a serious heart condition:: No Immunocompromised:: Yes Severely obese (Body Mass Index of 40 or higher):: No Diabetic:: No Has chronic kidney disease undergoing dialysis:: No Has liver disease:: No Medical History: Past Medical History (Last Updated 07/31/20 @ 10:38 by Ruben Hays, UPHOLSTERY DEPARTMENT SUPERVISOR, MANAGER PLAN, BS) Atherosclerosis of coronary artery of [place] heart without angina pectoris (Chronic) I25.10 Chronic hypoxemic respiratory failure (Chronic) J96.11 SCOTT (obstructive sleep apnea) (Chronic) G47.33 Asthma (Chronic) J45.909 PND (post-nasal drip) (Chronic) R09.82 Stage 4 very severe COPD by GOLD classification (Chronic) J44.9 FEV1 31% Adrenal insufficiency due to corticosteroid withdrawal (Chronic) E27.3, T38.0X5A Osteoporosis (Chronic) M81.0 Steroid induced Post Lung transplant -left Onset Date: ~05/31/20 COPD (chronic obstructive pulmonary disease) J44.9 Chronic hypoxemic respiratory failure J96.11 STAGE 4 VERY SEVERE Obesity E66.9 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 Physical deconditioning R53.81 Spinal stenosis M48.00 Sprain and strain of lumbosacral joint/ligament S33.5XXA Tobacco abuse Z72.0 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 due in October 2019 Vitamin D deficiency E55.9 Acute bronchitis J20.9 Acute exacerbation of chronic obstructive pulmonary disease (Resolved) J44.1 Acute respiratory failure with hypoxia (Resolved) J96.01 Allergic asthma with acute exacerbation (Resolved) J45.901 Wheezing R06.2 Nonrheumatic tricuspid (valve) insufficiency (Ruled-out) I36.1 Secondary pulmonary arterial hypertension (Ruled-out) I27.21 Chest pain, unspecified R07.9 PINZON (dyspnea on exertion) R06.09 PINZON (dyspnea on exertion) (Inactive) R06.09 Hypersomnia G47.10 Oxygen desaturation R09.02 Surgical History: Past Surgical History (Last Reviewed 05/09/20 @ 13:02 by Kailey Gamez NETWORK CONSULTANT, NETWORK CONSULTANT-C) History of coronary artery stent placement (Resolved) Onset Date: 07/13/06 Z95.5 PCI-JOEL-Mid LCx w/ 2.75 x 33 mm Cypher Stent 07/13/2006 History of back surgery Z98.890 L1-L5 05/2014 History of left heart catheterization Onset Date: 11/28/19 Z98.890 09/08/2016, 11/28/19 S/P left rotator cuff repair Z98.890 10/2015 Family History: Family History (Last Reviewed 05/09/20 @ 13:02 by Kailey Gamez NETWORK CONSULTANT, NETWORK CONSULTANT-C) Father Heart disease Social History - Smoking History Smoking Status: Former smoker - Occupation Occupation (List type of work in comments):: Retired - Hobbies, Recreation, Social Activities Hobbies: Other - Gardening fishing outdoor activity Recreational Activities: I am able to engage in most, but not all activities Functioning ADL/IADL - Current Ability Current Ability: Independent Self-Care (e.g.,grooming, dressing, & bathing), Independent Ambulation, Independent Transfer, Independent Household tasks (e.g., light meal prep, laundry, shopping) - Pt Functioning Prior to Problem Prior Functioning: Self-Care (e.g.,grooming, dressing, & bathing): Independent, Ambulation: Independent, Transfer: Independent, Household tasks (e.g., light meal prep, laundry, shopping): Independent Social Environment - Status Marital Status: - Current Living Arrangements Living Environment:: Spouse - Children How many children do you have?: 1 Do any of your children live nearby?: Yes - Safety Do you feel safe in your surroundings?: Yes Review of Systems Review of Systems: Right click = Denies ([place]). Left click = Reports ([place]) Respiratory: Reports: SOB upon Exertion, Appetite, Normal, Sleep, Normal. Denies: Cough, SOB at Rest, Sputum production, Dizziness/Lightheadedness Is Patient Pain Free?: Yes Pain Location: none Pain Level: 0/10 Risk Factor Assessment - Chief Complaint Chief Complaint: Patient is a former [facility] patient who had very severe Stage IV COPD and recently had a left lung transplant done at [facility] on 05/31/2020 replacing the left lung. - Vital Signs Temperature: 97.3 F Pulse Rate: 71 Pulse Rhythm: Regular Respiratory Rate: 18 Pulse Ox: 96 - Room Air !!! Blood Pressure: 157/88 - Obesity Height: 5 ft 7.5 in Weight:: 197 lb Weight in Pounds: 197.0 lbs Weight Source: Estimated by Patient Body Mass Index (BMI): 30.4 Nutritional Referral for Obesity: No - Physical Activity Physical Inactivity: Reg Exercise 30 min/day - 15 minutes on treadmill and daily activity - Risk Stratification Risk Guidelines: Lowest Risk: Risk Factor for Smoking, Risk Factor for Dyslipidemia, Risk Factor for Diabetes, Highest Risk: Risk Factor for Obesity - For Smoking Smoking Risk Guidelines: Smoking Low Risk: None or quit greater than 6 months ago. Smoking Moderate Risk: Smoker or quit 6 months or less ago. Smoking High Risk: Smoker - For Dyslipidemia Dyslipidemia Risk Guidelines: Low Risk: Moderate Risk: High Risk: 15-25% fat 25.1-29% fat >/= 30% fat. <7% sat fat 7-9% sat fat >9% sat fat. <150 mg chol 150-299 mg chol >/= 300 mg chol. LDL <100 LDL 100-129 LDL >/= 130. Chol/HDL ratio <5.0 Chol/HDL ratio 5.0-6.0 Chol/HDL ratio >6.0. Triglycerides <100 Triglycerides 100-149 Triglycerides >/= 150 - For Diabetes Mellitus Diabetes Risk Guidelines: Diabetes Low Risk: HgA1c <6.5% and/or FBG <120. Diabetes Moderate Risk: HgA1c 6.6-7.9% and/or FBG 120-180. Diabetes High Risk: HgA1c >/= 8% and/or FBG >180 - For Obesity/Overweight Obesity/Overweight Risk Guidelines: Obesity Low Risk: BMI <25.0. Obesity Moderate Risk: BMI 25-29.9. Obesity High Risk: BMI >/= 30.0 - For Hypertension Hypertension Risk Guidelines: Hypertension Low Risk: Systolic <120 and Diastolic <80. Hypertension Moderate Risk: Systolic 120-139 and Diastolic 80-89. Hypertension High Risk: Systolic >/= 140 and Diastolic >/= 90 - For Sedentary Lifestyle Sedentary Lifestyle Risk Guidelines: Sedentary Lifestyle Low Risk: >/= 1,500 kcal/week. Sedentary Lifestyle Moderate Risk: 700-1,499 kcal/week. Sedentary Lifestyle High Risk: < 700 kcal/week - For Depression Depression Risk Guidelines: Depression Low Risk: Not clinically depressed. Depression Moderate Risk: Mildly depressed. Depression High Risk: Clinically depressed Motivation - Motivation to Participate On a scale of 1 to 10, how prepared are you to commit to attending program?: 10 What do you see as barriers to successfully being able to complete the program?: none What do you see as the benefits of succesfully completing the program? In other words, what do you hope to get out of participating in the program?: healthier, getting back to normal activity Are there issues you are dealing with that will interfere with completing the program?: none; other than monthly visits to [facility] Do you have a spouse or signficant other, family or friends who will help support you to complete the program?: yes
[2020-07-31 10:43] VITALS: BP 157/88; PULSE 71; RESP 18; TEMP 36.3; O2SAT 96; BMI 30.4
== END ==
PROVIDERS: PCP Family Medicine
DX: M81.0 Age-related osteoporosis without current pathological fracture (principal)

== ENCOUNTER 2020-08-06 09:32 | Outpatient (RCR) | payer OTHER, SELFPAY ==
[2020-05-09 12:41] VITALS: BMI 36.3
[2020-07-09 10:22] LABS: Absolute Lymphocyte Count 0.93 X10^3/uL (0.83-4.51); Absolute Neutrophil Count 6.7 X10^3/uL (2.0-7.7); Basophil# 0.04 X10^3/uL; Basophil% 0.5 % (0-1); Eosinophil# 0.05 X10^3/uL; Eosinophils% 0.6 % (0-5); Hematocrit 36.1 % (40-54); Hemoglobin 11.2 g/dL (13.0-16.5); Lymphocyte # 0.93 X10^3/ul (4.0); Lymphocyte % 10.9 % (19-41); Mean Corpuscular Hgb 28.6 pg (27.0-32.0); Mean Corpuscular Volume 92.1 fL (80-94); Mean Platelet Vol. 10.3 fl (6.2-12.0); Monocyte# 0.73 X10^3/uL; Monocyte% 8.6 % (0-10); NRBC Flagged by Analyzer 0 % (0-5); Neutrophil # 6.71 X10^3/uL (2.7-7.7); Neutrophil % 78.6 % (47-70); Platelet Count 212 K/mm3 (150-450); RBC Distribution Width SD 53.2 fl (35.1-43.9); Red Blood Count 3.92 M/mm3 (4.6-6.2); White Blood Count 8.5 K/mm3 (4.4-11.0)
[2020-07-09 10:37] LABS: AST(SGOT) 10 U/L (15-37); Alanine Aminotransfer ALT/SGPT 24 U/L (16-61); Albumin, Serum 3.4 g/dL (3.2-5.0); Alkaline Phosphatase 100 U/L (45-117); BUN 25 mg/dL (7-18); BUN/Creat Ratio 18.1 RATIO (10-20); Calcium,Total 9.1 mg/dL (8.5-10.1); Chloride 107 mmol/L (98-107); Cholesterol 218 mg/dL (200); Creatinine, Serum 1.38 mg/dL (0.70-1.30); EST Glomerular Filtration Rate 54 mL/min (>60); Est Glom Filt Rate - Afr Amer 65 mL/min (>60); Ferritin 56 ng/mL (26-388); Glucose 147 mg/dL (74-106); Iron 30 ug/dL (65-175); Iron Binding Capacity,Total 406 ug/dL (250-450); Magnesium 1.7 mg/dL (1.6-2.6); Phosphorus 2.4 mg/dL (2.5-4.9); Potassium 4.2 mmol/L (3.5-5.1); Sodium Level 140 mmol/L (136-145); Triglycerides 223 mg/dL; Uric Acid 5.4 mg/dL (3.5-7.2)
[2020-07-09 10:38] LABS: Hemoglobin A1c 5.6 % (3.8-5.6)
[2020-07-09 10:54] LABS: Vitamin D,25 Hydroxy 34.7 ng/mL
[2020-07-11 20:08] LABS: Immunoglobulin A 163 mg/dL (61-437); Immunoglobulin G 315 mg/dL (603-1613); Immunoglobulin M 40 mg/dL (15-143)
[2020-07-11 21:01] LABS: Tacrolimus (FK506) 9.5 ng/mL (2.0-20.0); Transferrin 300 mg/dL (177-329)
[2020-07-23 10:18] LABS: Absolute Neutrophil Count 6.8 X10^3/uL (2.0-7.7); Basophil# 0.04 X10^3/uL; Basophil% 0.5 % (0-1); Eosinophils% 3.4 % (0-5); Hematocrit 37.2 % (40-54); Hemoglobin 11.1 g/dL (13.0-16.5); Mean Corp Hgb Conc 29.8 g/dL (32-36); Mean Corpuscular Hgb 27.3 pg (27.0-32.0); Mean Corpuscular Volume 91.6 fL (80-94); Mean Platelet Vol. 10.1 fl (6.2-12.0); Monocyte# 0.73 X10^3/uL; Monocyte% 8.4 % (0-10); NRBC Flagged by Analyzer 0 % (0-5); Neutrophil # 6.78 X10^3/uL (2.7-7.7); Platelet Count 214 K/mm3 (150-450); RBC Distribution Width CV 15.5 % (11.6-14.6); RBC Distribution Width SD 51.8 fl (35.1-43.9); Red Blood Count 4.06 M/mm3 (4.6-6.2); White Blood Count 8.7 K/mm3 (4.4-11.0)
[2020-07-23 10:31] LABS: Anion Gap 6 (5-15); BUN 19 mg/dL (7-18); BUN/Creat Ratio 15.1 RATIO (10-20); Calcium,Total 8.6 mg/dL (8.5-10.1); Chloride 108 mmol/L (98-107); Creatinine, Serum 1.26 mg/dL (0.70-1.30); EST Glomerular Filtration Rate 60 mL/min (>60); Est Glom Filt Rate - Afr Amer 72 mL/min (>60); Glucose 137 mg/dL (74-106); Potassium 4.3 mmol/L (3.5-5.1); Sodium Level 137 mmol/L (136-145)
[2020-07-23 18:13] LABS: Xtra Tube EP Lab EXTRA TUBE
[2020-07-24 09:39] LABS: Magnesium 2.3 mg/dL (1.6-2.6)
[2020-07-27 13:38] LABS: Tacrolimus (FK506) 7.9 ng/mL (2.0-20.0)
[2020-07-30 10:28] LABS: Absolute Lymphocyte Count 0.85 X10^3/uL (0.83-4.51); Absolute Neutrophil Count 7.5 X10^3/uL (2.0-7.7); Basophil# 0.05 X10^3/uL; Basophil% 0.5 % (0-1); Eosinophil# 0.45 X10^3/uL; Eosinophils% 4.6 % (0-5); Hematocrit 34.1 % (40-54); Hemoglobin 10.5 g/dL (13.0-16.5); Lymphocyte # 0.85 X10^3/ul (4.0); Lymphocyte % 8.7 % (19-41); Mean Corp Hgb Conc 30.8 g/dL (32-36); Mean Corpuscular Hgb 27.7 pg (27.0-32.0); Mean Platelet Vol. 9.2 fl (6.2-12.0); Monocyte# 0.77 X10^3/uL; Monocyte% 7.9 % (0-10); NRBC Flagged by Analyzer 0 % (0-5); Neutrophil # 7.53 X10^3/uL (2.7-7.7); Neutrophil % 77.1 % (47-70); Platelet Count 233 K/mm3 (150-450); RBC Distribution Width CV 15.4 % (11.6-14.6); RBC Distribution Width SD 49.7 fl (35.1-43.9); Red Blood Count 3.79 M/mm3 (4.6-6.2); White Blood Count 9.8 K/mm3 (4.4-11.0)
[2020-07-30 10:42] LABS: Anion Gap 6 (5-15); BUN 38 mg/dL (7-18); BUN/Creat Ratio 27.9 RATIO (10-20); Calcium,Total 9.3 mg/dL (8.5-10.1); Chloride 105 mmol/L (98-107); Creatinine, Serum 1.36 mg/dL (0.70-1.30); EST Glomerular Filtration Rate 55 mL/min (>60); Est Glom Filt Rate - Afr Amer 66 mL/min (>60); Glucose 112 mg/dL (74-106); Magnesium 1.8 mg/dL (1.6-2.6); Potassium 4.6 mmol/L (3.5-5.1); Sodium Level 138 mmol/L (136-145)
[2020-07-30 18:25] LABS: Xtra Tube EP Lab EXTRA TUBE
[2020-08-02 09:51] LABS: Tacrolimus (FK506) 9.3 ng/mL (2.0-20.0)
[2020-08-06 09:52] LABS: Absolute Lymphocyte Count 0.79 X10^3/uL (0.83-4.51); Absolute Neutrophil Count 8.4 X10^3/uL (2.0-7.7); Basophil# 0.04 X10^3/uL; Basophil% 0.4 % (0-1); Eosinophil# 0.51 X10^3/uL; Eosinophils% 4.8 % (0-5); Hematocrit 37.1 % (40-54); Hemoglobin 11.2 g/dL (13.0-16.5); Lymphocyte # 0.79 X10^3/ul (4.0); Lymphocyte % 7.4 % (19-41); Mean Corp Hgb Conc 30.2 g/dL (32-36); Mean Corpuscular Hgb 27.2 pg (27.0-32.0); Mean Platelet Vol. 9.3 fl (6.2-12.0); Monocyte# 0.67 X10^3/uL; Monocyte% 6.3 % (0-10); NRBC Flagged by Analyzer 0 % (0-5); Neutrophil # 8.41 X10^3/uL (2.7-7.7); Neutrophil % 79.3 % (47-70); Platelet Count 236 K/mm3 (150-450); RBC Distribution Width CV 15.3 % (11.6-14.6); RBC Distribution Width SD 50.1 fl (35.1-43.9); Red Blood Count 4.12 M/mm3 (4.6-6.2); White Blood Count 10.6 K/mm3 (4.4-11.0)
[2020-08-06 10:11] LABS: AST(SGOT) 13 U/L (15-37); Alanine Aminotransfer ALT/SGPT 18 U/L (16-61); Albumin, Serum 3.3 g/dL (3.2-5.0); Alkaline Phosphatase 116 U/L (45-117); Anion Gap 5 (5-15); BUN 28 mg/dL (7-18); BUN/Creat Ratio 18.2 RATIO (10-20); Bilirubin, Direct 0.07 mg/dL (0.00-0.30); Calcium,Total 9.5 mg/dL (8.5-10.1); Chloride 107 mmol/L (98-107); Creatinine, Serum 1.54 mg/dL (0.70-1.30); EST Glomerular Filtration Rate 47 mL/min (>60); Est Glom Filt Rate - Afr Amer 57 mL/min (>60); GGTP 25 U/L (15-85); Globulin 3.5 g/dL (2.2-4.2); Glucose 122 mg/dL (74-106); Magnesium 1.7 mg/dL (1.6-2.6); Phosphorus 3.4 mg/dL (2.5-4.9); Potassium 4.9 mmol/L (3.5-5.1); Protein, Total 6.8 g/dL (6.4-8.2); Sodium Level 139 mmol/L (136-145)
[2021-04-01 10:03] LABS: Hematocrit 34.9 % (40-54); Hemoglobin 11.3 g/dL (13.0-16.5); Mean Corp Hgb Conc 32.4 g/dL (32-36); Mean Corpuscular Hgb 32.4 pg (27.0-32.0); Mean Platelet Vol. 9.4 fl (6.2-12.0); POSITIVE COUNT YES; POSITIVE MORPHOLOGY YES; Platelet Count 159 K/mm3 (150-450); RBC Distribution Width CV 14.5 % (11.6-14.6); RBC Distribution Width SD 53.1 fl (35.1-43.9); Red Blood Count 3.49 M/mm3 (4.6-6.2); White Blood Count 7.7 K/mm3 (4.4-11.0)
[2021-04-01 10:04] LABS: Differential Indicated MANUAL DIFF
[2021-04-01 10:21] LABS: Anion Gap 2 (5-15); BUN 36 mg/dL (7-18); BUN/Creat Ratio 21.4 RATIO (10-20); Calcium,Total 8.9 mg/dL (8.5-10.1); Chloride 115 mmol/L (98-107); Cholesterol 213 mg/dL (200); Creatinine, Serum 1.68 mg/dL (0.70-1.30); EST Glomerular Filtration Rate 43 mL/min (>60); Est Glom Filt Rate - Afr Amer 52 mL/min (>60); Ferritin 71 ng/mL (26-388); Glucose 102 mg/dL (74-106); High Density Lipoprotein 40 mg/dL; Iron 83 ug/dL (65-175); Iron Binding Capacity,Total 352 ug/dL (250-450); Magnesium 1.9 mg/dL (1.6-2.6); Potassium 5.1 mmol/L (3.5-5.1); Sodium Level 141 mmol/L (136-145); Triglycerides 328 mg/dL; Very Low Density Lipoprotein 66 mg/dL (5-40)
[2021-04-01 10:22] LABS: Neutrophil-Band 2 % (0-5); Neutrophil-Segmented 75 % (47-70); Total Cells Counted 100 (MANUAL DIFF)
[2021-04-01 10:23] LABS: Eosinophil 1 % (0-5); Hemoglobin A1c 5.5 % (3.8-5.6); Hypochromasia RARE; Lymphocyte 12 % (19-41); Macrocytosis 1+; Metamyelocyte 1 % (0-1); Monocyte 7 % (0-10); Myelocyte 1 % (0-0); Plasma Cell 1 %; Platelet Estimate ADEQUATE (ADEQ)
[2021-04-01 10:24] LABS: Absolute Lymphocyte Count 0.93 X10^3/uL (0.83-4.51)
[2021-04-01 17:59] LABS: Xtra Tube EP Lab EXTRA TUBE
[2021-04-03 09:58] LABS: Pathologist Review Reviewed
[2021-04-03 11:08] LABS: Immunoglobulin A 172 mg/dL (61-437); Immunoglobulin G 478 mg/dL (603-1613); Immunoglobulin M 45 mg/dL (15-143)
[2021-04-03 13:55] LABS: Tacrolimus (FK506) 7.4 ng/mL (2.0-20.0); Transferrin 287 mg/dL (177-329)
== END 2020-08-08 23:59 ==
LOC: PAVLAB 09:32
PROVIDERS: PCP Family Medicine
DX: E78.5 Hyperlipidemia, unspecified (principal); R79.9 Abnormal finding of blood chemistry, unspecified; E55.9 Vitamin D deficiency, unspecified; D64.9 Anemia, unspecified; M81.0 Age-related osteoporosis without current pathological fracture; Z94.2 Lung transplant status; Z51.81 Encounter for therapeutic drug level monitoring
CPT/HCPCS: 36415; 80048; 80061; 80069; 80076; 80197; 82247; 82248; 82306; 82465; 82728; 82784; 82977; 83036; 83540; 83550; 83735; 84075; 84100; 84450; 84460; 84466; 84478; 84550; 85025

== ENCOUNTER 2020-08-20 08:56 | Outpatient (RCR) | payer OTHER, SELFPAY ==
[2020-05-09 12:41] VITALS: BMI 36.3
[2020-08-07 12:48] VITALS: BMI 31.3
[2020-08-20 09:17] LABS: Absolute Lymphocyte Count 0.98 X10^3/uL (0.83-4.51); Absolute Neutrophil Count 6.1 X10^3/uL (2.0-7.7); Basophil# 0.04 X10^3/uL; Basophil% 0.5 % (0-1); Eosinophil# 0.13 X10^3/uL; Eosinophils% 1.7 % (0-5); Hematocrit 38.1 % (40-54); Hemoglobin 11.3 g/dL (13.0-16.5); Lymphocyte # 0.98 X10^3/ul (4.0); Lymphocyte % 12.5 % (19-41); Mean Corp Hgb Conc 29.7 g/dL (32-36); Mean Corpuscular Volume 91.1 fL (80-94); Mean Platelet Vol. 9.9 fl (6.2-12.0); Monocyte# 0.46 X10^3/uL; Monocyte% 5.9 % (0-10); NRBC Flagged by Analyzer 0 % (0-5); Neutrophil # 6.12 X10^3/uL (2.7-7.7); Neutrophil % 77.7 % (47-70); Platelet Count 191 K/mm3 (150-450); RBC Distribution Width CV 17.1 % (11.6-14.6); RBC Distribution Width SD 55.3 fl (35.1-43.9); Red Blood Count 4.18 M/mm3 (4.6-6.2); White Blood Count 7.9 K/mm3 (4.4-11.0)
[2020-08-20 09:27] LABS: Anion Gap 6 (5-15); BUN 26 mg/dL (7-18); BUN/Creat Ratio 18.1 RATIO (10-20); Calcium,Total 9.1 mg/dL (8.5-10.1); Chloride 106 mmol/L (98-107); Creatinine, Serum 1.44 mg/dL (0.70-1.30); EST Glomerular Filtration Rate 51 mL/min (>60); Est Glom Filt Rate - Afr Amer 62 mL/min (>60); Glucose 125 mg/dL (74-106); Magnesium 1.9 mg/dL (1.6-2.6); Potassium 4.6 mmol/L (3.5-5.1); Sodium Level 136 mmol/L (136-145)
[2020-08-20 17:12] LABS: Xtra Tube EP Lab EXTRA TUBE
[2020-08-22 11:25] LABS: Tacrolimus (FK506) 6.5 ng/mL (2.0-20.0)
== END 2020-09-07 23:59 ==
LOC: PR 08:56
PROVIDERS: PCP Family Medicine; Referring Provider Internal Medicine Critical Care Medicine; Visit Provider Internal Medicine Critical Care Medicine
DX: Z00.00 Encounter for general adult medical examination without abnormal findings (principal); M81.0 Age-related osteoporosis without current pathological fracture
CPT/HCPCS: 36415; 80048; 80197; 83735; 85025

== ENCOUNTER 2020-08-30 17:56 | Emergency (ER) | payer OTHER, SELFPAY ==
[2020-08-07 12:48] VITALS: BMI 31.3
[2020-08-30 17:56] VITALS: BP 143/92; PULSE 84; RESP 16; TEMP 35.8; O2SAT 97; BMI 32.8
--- NOTE | 2020-08-30 18:12 | EKG12_ITS ---
Test Reason : DYSRHYTHMIA Blood Pressure : / mmHG Vent. Rate : 071 BPM Atrial Rate : 071 BPM P-R Int : 140 ms QRS Dur : 086 ms QT Int : 364 ms P-R-T Axes : 092 060 063 degrees QTc Int : 395 ms Normal sinus rhythm Normal ECG Confirmed by ANGELITA HUITRON, VALERIE ([id number]), video effects editor ELIZABETH BLACK ([id number]) on 09/03/2020 9:55:25 AM Referred By: CASPER Confirmed By:MIGUEL ANGEL GOLDSTEIN MD
[2020-08-30 18:21] LABS: Absolute Lymphocyte Count 0.55 X10^3/uL (0.83-4.51); Absolute Neutrophil Count 6.4 X10^3/uL (2.0-7.7); Basophil# 0.02 X10^3/uL; Basophil% 0.3 % (0-1); Eosinophil# 0.01 X10^3/uL; Eosinophils% 0.1 % (0-5); Hematocrit 39.3 % (40-54); Hemoglobin 11.8 g/dL (13.0-16.5); Lymphocyte # 0.55 X10^3/ul (0.83-4.51); Lymphocyte % 7.2 % (19-41); Mean Corpuscular Hgb 27.6 pg (27.0-32.0); Mean Platelet Vol. 10.3 fl (6.2-12.0); Monocyte# 0.45 X10^3/uL; Monocyte% 5.9 % (0-10); NRBC Flagged by Analyzer 0 % (0-5); Neutrophil # 6.43 X10^3/uL (2.7-7.7); Neutrophil % 84.3 % (47-70); POSITIVE DIFFERENTIAL YES; Platelet Count 208 K/mm3 (150-450); RBC Distribution Width CV 18.4 % (11.6-14.6); RBC Distribution Width SD 61.9 fl (35.1-43.9); Red Blood Count 4.27 M/mm3 (4.6-6.2); White Blood Count 7.6 K/mm3 (4.4-11.0)
[2020-08-30 18:25] LABS: Differential Indicated SCAN CRITERIA MET
[2020-08-30 18:33] LABS: Anion Gap 5 (5-15); BUN 36 mg/dL (7-18); BUN/Creat Ratio 21.7 RATIO (10-20); Calcium,Total 9.3 mg/dL (8.5-10.1); Chloride 108 mmol/L (98-107); Creatinine, Serum 1.66 mg/dL (0.70-1.30); EST Glomerular Filtration Rate 44 mL/min (>60); Est Glom Filt Rate - Afr Amer 53 mL/min (>60); Estimated Creatinine Clearance 37.61 ml/min; Glucose 105 mg/dL (74-106); Potassium 5.6 mmol/L (3.5-5.1); Sodium Level 136 mmol/L (136-145)
[2020-08-30 18:50] LABS: Anisocytosis RARE; Macrocytosis RARE; Ovalocyte RARE; Platelet Estimate ADEQUATE (ADEQ); Red Cell Morphology N CHROM NORMAL (NORM C&C)
--- NOTE | 2020-08-30 19:39 | ED.DCSUM_ITS ---
History of Present Illness Chief Complaint: Abn Labs Informant: Patient Narrative: Is a 70-year-old male who is status post lung transplant presenting with abnormal potassium value. Outpatient blood work done through [facility]. He follows there because he had a lung transplant and they are doing routine blood work. His potassium was 6.2. He was instructed to come to the emergency room to be evaluated further. Patient denies any history of high potassium. He denies any change with urination. He has been feeling a little weak lately but denies any other complaints. Past Medical History - Allergies and Home Meds Allergies/Adverse Reactions: Allergies No Known Allergies Allergy (Verified 08/30/20 17:58) Primary Care Physician: Guerrero Bateman MD [Primary Care Provider] - Past Medical History: - - lung transplant, asthma, COPD Surgical History: - - shoulder, back, heart stent Lives: Spouse/ Significant Other Smoking Status: Former smoker - Family History Maternal Family History: Family History (Last Reviewed 08/07/20 @ 13:03 by Kailey Gamez OUTPATIENT PHLEBOTOMIST, OUTPATIENT PHLEBOTOMIST-C) Father Heart disease Family History: Reports: - - mother still living at Paternal Family History: Family History (Last Reviewed 08/07/20 @ 13:03 by Kailey Gamez NP, OUTPATIENT PHLEBOTOMIST-C) Father Heart disease Family History: Reports: Heart Disease Review of Systems General: Reports: Malaise. Denies: Chills, Fever, Sweats Eyes: Denies: Visual changes - bilaterally, Diplopia ENT: Denies: Rhinorrhea, Sore throat Cardiovascular: Denies: Chest pain, Palpitations Respiratory: Denies: Dyspnea, Cough, Dyspnea on exertion Gastrointestinal: Denies: Abdominal pain, Nausea, Vomiting, Diarrhea, Melena, Hematochezia Genitourinary: Denies: Dysuria, Hematuria, Frequency Musculoskeletal: Denies: Back pain, Extremity Pain Skin: Denies: Rash, Wounds Neurological: Denies: Headache, Weakness, Numbness Physical Exam Vital Signs/Narrative: Vital Signs Temp Pulse Resp BP Pulse Ox 08/30/20 17:56 96.5 F L 84 16 143/92 H 97 Inital Vital Signs reviewed: Yes General: Well nourished, Well developed, No Acute Distress Head: Normocephalic, Atraumatic Eyes: Perrl, EOMI ENT: Moist mucous membranes, No rhinorrhea Neck: Supple, Nontender, No JVD Cardiovascular: Regular rate, Regular rhythm, No murmurs Respiratory: No distress, Chest nontender, Diminished - right side Abdomen: Soft, Nontender, Nondistended, Normal bowel sounds Back: Nontender, Normal Inspection Extremities: Nontender, No edema Skin: Normal color, No rash Neurological: Alert, Oriented x3, Cranial nerves II-XII grossly intact, Normal Strength, Normal Sensation Psychological: Normal affect, Normal Mood Diagnostic/Tx/Re-eval Laboratory Data 08/30/20 08/30/20 18:11 18:11 WBC 7.6 RBC 4.27 L Hgb 11.8 L Hct 39.3 L MCV 92.0 MCH 27.6 MCHC 30.0 L RDW Std Deviation 61.9 H RDW Coeff of Alexa 18.4 H Plt Count 208 MPV 10.3 Immature Gran % (Auto) 2.200 H Neut % (Auto) 84.3 H Lymph % (Auto) 7.2 L [place] % (Auto) 5.9 Eos % (Auto) 0.1 Baso % (Auto) 0.3 Absolute Neuts (auto) 6.4 Absolute Lymphs (auto) 0.55 L Nucleated RBC % 0 Differential Comment SEE COMMENT Platelet Estimate ADEQUATE RBC Morphology N CHROM Anisocytosis RARE Macrocytosis RARE Ovalocytes RARE Sodium 136 Potassium 5.6 H Chloride 108 H Carbon Dioxide 23.0 Anion Gap 5 BUN 36 H Creatinine 1.66 H Estim Creat Clear Calc 37.61 Est GFR (MDRD) Af Amer 53 L Est GFR (MDRD) Non-Af 44 L BUN/Creatinine Ratio 21.7 H Glucose 105 Calcium 9.3 - Rhythm Strip Rhythm Strip: Sinus Rhythm Rate: 71 Ectopy: None - EKG Initial EKG Interpretation: Sinus Rhythm, - - NSR at rate of 71 Normal intervals Normal [place] Normal ST segments Prior: Unchanged - Medical Decision Making Patient evaluated potassium level and outpatient labs. Patient has no symptoms. EKG obtained which does not show any changes concerning for hyperkalemia. Repeat potassium is only mildly elevated 5.6. Patient's creatinine is near his baseline. His potassium and creatinine have been slowly worsening over the past few months. Discussed with the transplant team at [facility] who are not concerned for any of his antirejection meds as the cause of his laboratory abnormalities. Patient is now to be admitted to the hospital and since he does not have EKG changes and only a mildly elevated potassium he will be treated with Kayexalate at home and have repeat blood work done tomorrow outpatient. He will follow-up with his primary care doctor. I did discuss the case with his PCP who is agreeable this plan of care. Patient is given a liter of IV fluid in the ER as well. Patient is counseled on signs and symptoms requiring return to the emergency room. Patient verbalizes agreement and understand this plan. Patient discharged home in stable and improved condition. ED Disposition - Plan for ED Patient: Disposition: Home or Assisted Living Diagnosis: Hyperkalemia, CKD (chronic kidney disease) Instructions: ED Hyperkalemia Referrals: Guerrero Bateman MD [Primary Care Provider] - Additional Instructions: Your potassium was mildly elevated today. You been given a medication to bring the level down. Please go to the lab tomorrow to recheck your potassium level. The results should be sent to your primary care doctor.
[2020-08-30 20:00] VITALS: BP 141/68; PULSE 70; RESP 19; O2SAT 96
[2020-08-30] MEDS: 0.9% Normal Saline 1,000 ML 999 ML IV (20:19)
[2020-08-30] MEDS: Sodium Polystyrene Sulfonate 15 GM/60 ML UDC PO (21:48)
[2020-08-30 21:51] VITALS: BP 140/85; PULSE 77; RESP 16
== END 2020-08-30 21:54 | disposition home or self-care (01) ==
PROVIDERS: Emergency Provider Emergency Medicine; PCP Family Medicine
DX: E87.5 Hyperkalemia (principal); N18.9 Chronic kidney disease, unspecified; J44.9 Chronic obstructive pulmonary disease, unspecified; Z95.5 Presence of coronary angioplasty implant and graft; Z87.891 Personal history of nicotine dependence; Z79.82 Long term (current) use of aspirin; Z79.899 Other long term (current) drug therapy; Z94.2 Lung transplant status
CPT/HCPCS: 80048; 85025; 93005; 99285; J7030; A4216

== ENCOUNTER → 2020-08-31 10:17 | Outpatient (CLI) | payer OTHER, SELFPAY ==
[2020-08-30 17:56] VITALS: BMI 32.8
[2020-08-31 10:47] LABS: Anion Gap 4 (5-15); BUN 28 mg/dL (7-18); BUN/Creat Ratio 18.8 RATIO (10-20); Calcium,Total 9.4 mg/dL (8.5-10.1); Chloride 107 mmol/L (98-107); Creatinine, Serum 1.49 mg/dL (0.70-1.30); EST Glomerular Filtration Rate 49 mL/min (>60); Est Glom Filt Rate - Afr Amer 60 mL/min (>60); Glucose 132 mg/dL (74-106); Sodium Level 137 mmol/L (136-145)
[2020-08-31 18:32] LABS: Xtra Tube EP Lab EXTRA TUBE
== END ==
PROVIDERS: PCP Family Medicine; Referring Provider Family Medicine; Visit Provider Family Medicine
DX: E87.5 Hyperkalemia (principal); M81.0 Age-related osteoporosis without current pathological fracture
CPT/HCPCS: 80048

== ENCOUNTER 2020-09-03 08:35 | Outpatient (RCR) | payer OTHER, SELFPAY ==
[2020-08-07 12:48] VITALS: BMI 31.3
[2020-08-13 09:54] LABS: Absolute Lymphocyte Count 0.86 X10^3/uL (0.83-4.51); Absolute Neutrophil Count 6.5 X10^3/uL (2.0-7.7); Basophil# 0.05 X10^3/uL; Basophil% 0.6 % (0-1); Eosinophil# 0.37 X10^3/uL; Eosinophils% 4.3 % (0-5); Hematocrit 36.3 % (40-54); Hemoglobin 10.8 g/dL (13.0-16.5); Lymphocyte # 0.86 X10^3/ul (4.0); Mean Corp Hgb Conc 29.8 g/dL (32-36); Mean Corpuscular Hgb 27.2 pg (27.0-32.0); Mean Corpuscular Volume 91.4 fL (80-94); Mean Platelet Vol. 9.3 fl (6.2-12.0); Monocyte# 0.68 X10^3/uL; Monocyte% 7.9 % (0-10); NRBC Flagged by Analyzer 0 % (0-5); Neutrophil # 6.47 X10^3/uL (2.7-7.7); Neutrophil % 75.6 % (47-70); Platelet Count 182 K/mm3 (150-450); RBC Distribution Width CV 16.1 % (11.6-14.6); Red Blood Count 3.97 M/mm3 (4.6-6.2); White Blood Count 8.6 K/mm3 (4.4-11.0)
[2020-08-13 10:05] LABS: Anion Gap 2 (5-15); BUN 39 mg/dL (7-18); BUN/Creat Ratio 27.3 RATIO (10-20); Chloride 107 mmol/L (98-107); Creatinine, Serum 1.43 mg/dL (0.70-1.30); EST Glomerular Filtration Rate 52 mL/min (>60); Est Glom Filt Rate - Afr Amer 63 mL/min (>60); Glucose 118 mg/dL (74-106); Potassium 4.8 mmol/L (3.5-5.1); Sodium Level 136 mmol/L (136-145)
[2020-08-13 17:52] LABS: Xtra Tube EP Lab EXTRA TUBE
[2020-08-15 13:34] LABS: Tacrolimus (FK506) 7.3 ng/mL (2.0-20.0)
[2020-09-03 09:00] LABS: Hematocrit 37.3 % (40-54); Mean Corp Hgb Conc 29.5 g/dL (32-36); Mean Corpuscular Hgb 27.8 pg (27.0-32.0); Mean Corpuscular Volume 94.2 fL (80-94); Mean Platelet Vol. 10.3 fl (6.2-12.0); POSITIVE COUNT YES; POSITIVE MORPHOLOGY YES; Platelet Count 185 K/mm3 (150-450); RBC Distribution Width CV 18.6 % (11.6-14.6); RBC Distribution Width SD 64.2 fl (35.1-43.9); Red Blood Count 3.96 M/mm3 (4.6-6.2); White Blood Count 6.4 K/mm3 (4.4-11.0)
[2020-09-03 09:01] LABS: Differential Indicated MANUAL DIFF
[2020-09-03 09:17] LABS: AST(SGOT) 11 U/L (15-37); Alanine Aminotransfer ALT/SGPT 17 U/L (16-61); Albumin, Serum 3.3 g/dL (3.2-5.0); Alkaline Phosphatase 81 U/L (45-117); Anion Gap 7 (5-15); BUN 27 mg/dL (7-18); BUN/Creat Ratio 18.6 RATIO (10-20); Bilirubin, Direct 0.09 mg/dL (0.00-0.30); Calcium,Total 9.2 mg/dL (8.5-10.1); Chloride 108 mmol/L (98-107); Creatinine, Serum 1.45 mg/dL (0.70-1.30); EST Glomerular Filtration Rate 51 mL/min (>60); Est Glom Filt Rate - Afr Amer 62 mL/min (>60); GGTP 24 U/L (15-85); Globulin 2.9 g/dL (2.2-4.2); Glucose 101 mg/dL (74-106); Magnesium 1.8 mg/dL (1.6-2.6); Potassium 4.2 mmol/L (3.5-5.1); Protein, Total 6.2 g/dL (6.4-8.2); Sodium Level 141 mmol/L (136-145); Uric Acid 6.6 mg/dL (3.5-7.2)
[2020-09-03 09:24] LABS: Eosinophil 1 % (0-5); Lymphocyte 19 % (19-41); Metamyelocyte 1 % (0-1); Monocyte 7 % (0-10); Myelocyte 1 % (0-0); Neutrophil-Segmented 70 % (47-70); Platelet Estimate ADEQUATE (ADEQ); Promyelocyte 1 % (0-0); Red Cell Morphology NORM C+C NORMAL (NORM C&C); Total Cells Counted 100 (MANUAL DIFF)
[2020-09-03 09:25] LABS: Absolute Neutrophil Count 4.5 X10^3/uL (2.0-7.7)
[2020-09-03 16:58] LABS: Xtra Tube EP Lab EXTRA TUBE
[2020-09-04 13:14] LABS: Pathologist Review Reviewed
[2020-09-05 21:05] LABS: Tacrolimus (FK506) 7.7 ng/mL (2.0-20.0)
== END 2020-09-07 23:59 ==
LOC: PAVLAB 08:35
PROVIDERS: PCP Family Medicine
DX: E78.5 Hyperlipidemia, unspecified (principal); E55.9 Vitamin D deficiency, unspecified; D64.9 Anemia, unspecified; R79.9 Abnormal finding of blood chemistry, unspecified; Z94.2 Lung transplant status; Z51.81 Encounter for therapeutic drug level monitoring
CPT/HCPCS: 36415; 80048; 80076; 80197; 82977; 83735; 84100; 84550; 85025

== ENCOUNTER 2020-09-07 14:15 | Outpatient (RCR) | payer OTHER, SELFPAY ==
[2020-07-31 10:43] VITALS: BMI 30.4
[2020-08-07 12:48] VITALS: BMI 31.3
[2020-08-27 09:22] LABS: Absolute Lymphocyte Count 1.07 X10^3/uL (0.83-4.51); Basophil# 0.04 X10^3/uL; Basophil% 0.6 % (0-1); Eosinophil# 0.08 X10^3/uL; Eosinophils% 1.2 % (0-5); Hematocrit 40.5 % (40-54); Hemoglobin 11.9 g/dL (13.0-16.5); Lymphocyte # 1.07 X10^3/ul (0.83-4.51); Lymphocyte % 15.7 % (19-41); Mean Corp Hgb Conc 29.4 g/dL (32-36); Mean Corpuscular Hgb 27.4 pg (27.0-32.0); Mean Corpuscular Volume 93.3 fL (80-94); Mean Platelet Vol. 9.8 fl (6.2-12.0); Monocyte# 0.52 X10^3/uL; Monocyte% 7.6 % (0-10); NRBC Flagged by Analyzer 0 % (0-5); Neutrophil # 4.95 X10^3/uL (2.7-7.7); Neutrophil % 72.6 % (47-70); Platelet Count 196 K/mm3 (150-450); RBC Distribution Width CV 18.1 % (11.6-14.6); RBC Distribution Width SD 61.1 fl (35.1-43.9); Red Blood Count 4.34 M/mm3 (4.6-6.2); White Blood Count 6.8 K/mm3 (4.4-11.0)
[2020-08-27 09:34] LABS: Anion Gap 4 (5-15); BUN 30 mg/dL (7-18); Calcium,Total 9.5 mg/dL (8.5-10.1); Chloride 108 mmol/L (98-107); Creatinine, Serum 1.43 mg/dL (0.70-1.30); EST Glomerular Filtration Rate 52 mL/min (>60); Est Glom Filt Rate - Afr Amer 63 mL/min (>60); Glucose 112 mg/dL (74-106); Potassium 5.1 mmol/L (3.5-5.1); Sodium Level 140 mmol/L (136-145)
[2020-08-27 17:20] LABS: Xtra Tube EP Lab EXTRA TUBE
--- NOTE | 2020-08-29 07:15 | PCM.PR.TP ---
Exercise - 30-Day Assessment - Physician Prescribed Exercise Modalities: Treadmill, Airdyne, NuStep, SciFit Frequency (days/week): 3 Duration (Minutes):: 35-45 Intensity: 60-80% of age predicted maximum heart rate reserve Aerobic Exercise [30-60 min 3-7x/week]:: Progressing Target heart rate: 96-126 [place]-13 METs - Progression: 0.5-1.0 MET, RPE 11-14 WEEK: 4.0 - increased from 3.0 - Home Exercise Home Exercise:: Yes Frequency:: DAILY WALKING Disease Management - 30-Day - Medications Medication list reviewed:: Yes Taking medications 100% of the time:: Met Medication reassessment: Yes Pt demonstrates correct technique timing for MDI, Yes Pt demonstrates correct technique timing for DPI, Yes Pt demonstrates correct technique timing for NEB, Yes Pt demonstrates correct technique timing for spacer - Bronchial Hygiene Bronchial Hygiene Plan: Yes Pt demonstrates correctly for effective cough, Yes Pt demo correct for device, Yes Pt demo correct for sputum management, Yes Pt demo correct for improved hydration, Yes Pt demo correct for hand hygiene, Yes Pt demo correct for verbalize when to call MD Psychosocial - 30-Day - Assessment Reassessment: Management of stress & depression, Practicing interventions, Demonstrate coping strategies, Geriatric depression screening, Self efficacy score Tobacco - 30-Day Assessment - Program Goals Tobacco Program Goals: Complete smoking cessation. Attend education classes. Improve Knowledge Test score - Stage of Change Stages of Change:: Action - Learning Barriers Learning Barriers: Declined education - Family Support Do you have family support?: Yes - Tobacco Use Tobacco Use: Non-smoker - Intervention Smoking Cessation Referral:: No Individual Education/Counseling:: No Education Schedule Given:: Yes - Education Gave Education Materials For:: Pulmonary Disease, Risk Factors, Breathing Techniques, Medical Compliance, Pulmonary A&P, Exacerbation Signs & Symptoms, Stress & Relaxation Nutrition/Wt Mgmt - 30-Day - Weight Management Weight Assessment:: Wt loss 1-2 lbs per week Weight:: 209 lb - BMI 36.3 Weight Goals Progress:: Progressing Patient Health Questionnaire 30-Day Re-eval Assessment 1. Little interest or pleasure in doing things: Not at all 2. Feeling down, depressed, or hopeless: Not at all 3. Trouble falling or staying asleep, or sleeping too much: Several days 4. Feeling tired or having little energy: Several days 5. Poor appetite or overeating: Not at all 6. Feeling bad about yourself -- or that you are a failure or have let yourself or your family down: Not at all 7. Trouble concentrating on things, such as reading the newspaper or watching television: Several days 8. Moving or speaking so slowly that other people could have noticed. Or the opposite - being so fidgety or restless that you have been moving around a lot more than usual: Not at all 9. Thoughts that you would be better off , or of hurting yourself in some way: Not at all How difficult have these problems made it for you to do your work, take care of things at home, or get along with other people?: Not difficult at all Total Score: 3 Self-Efficacy 30-Day Re-eval Assessment We would like to know how confident you are in doing certain activities. Please select your confidence level for:: Select your confidence level for the following using the scale 1-10 where 1 is not at all confident and 10 is totally confident. Your score is the average of all 6 responses. Fatigue: How confident are you that you can keep the fatigue caused by your disease from interfering with the things you want to do? Select Number: 9 Physical Discomfort or Pain: How confident are you that you can keep the physical discomfort or pain of your disease from interfering with the things you want to do? Select Number: 9 Emotional Distress: How confident are you that you can keep the emotional distress caused by your disease from interfering with the things you want to do? Select Number: 9 Other Symptoms or Health Problems: How confident are you that you can keep other symptoms or health problems from interfering with the things you want to do? Select Number: 10 Different Tasks and Activities: How confident are you that you can do the different tasks and activities needed to manage your health condition so as to reduce your need to see a doctor? Select Number: 10 Medication: How confident are you that you can do things other than just taking medication to reduce how much your illness affects your everyday life? Select Number: 10 Total Score:: 9
[2020-08-30 17:03] LABS: Tacrolimus (FK506) 13.1 ng/mL (2.0-20.0)
== END 2020-09-07 23:59 ==
LOC: PR 14:15
PROVIDERS: PCP Family Medicine
DX: Z48.24 Encounter for aftercare following lung transplant (principal); Z51.81 Encounter for therapeutic drug level monitoring; E78.5 Hyperlipidemia, unspecified; E55.9 Vitamin D deficiency, unspecified; D64.9 Anemia, unspecified; R79.9 Abnormal finding of blood chemistry, unspecified; Z94.2 Lung transplant status
CPT/HCPCS: 36415; 80048; 80197; 83735; 85025; 97150; G0239

== ENCOUNTER 2020-10-01 08:18 | Outpatient (RCR) | payer OTHER, SELFPAY ==
[2020-09-10 08:54] LABS: Hematocrit 37.9 % (40-54); Mean Corpuscular Hgb 26.8 pg (27.0-32.0); Mean Corpuscular Volume 92.4 fL (80-94); Mean Platelet Vol. 9.8 fl (6.2-12.0); POSITIVE COUNT YES; POSITIVE MORPHOLOGY YES; Platelet Count 173 K/mm3 (150-450); RBC Distribution Width CV 18.7 % (11.6-14.6); RBC Distribution Width SD 63.7 fl (35.1-43.9); White Blood Count 7.4 K/mm3 (4.4-11.0)
[2020-09-10 08:58] LABS: Differential Indicated MANUAL DIFF
[2020-09-10 09:08] LABS: Anion Gap 7 (5-15); BUN 35 mg/dL (7-18); BUN/Creat Ratio 27.8 RATIO (10-20); Calcium,Total 9.2 mg/dL (8.5-10.1); Chloride 106 mmol/L (98-107); Creatinine, Serum 1.26 mg/dL (0.70-1.30); EST Glomerular Filtration Rate 60 mL/min (>60); Est Glom Filt Rate - Afr Amer 72 mL/min (>60); Glucose 104 mg/dL (74-106); Magnesium 1.6 mg/dL (1.6-2.6); Potassium 4.2 mmol/L (3.5-5.1); Sodium Level 141 mmol/L (136-145)
[2020-09-10 09:34] LABS: Eosinophil 1 % (0-5); Lymphocyte 15 % (19-41); Monocyte 5 % (0-10); Neutrophil-Segmented 79 % (47-70); Platelet Estimate ADEQUATE (ADEQ); Red Cell Morphology NORM C+C NORMAL (NORM C&C); Total Cells Counted 100 (MANUAL DIFF)
[2020-09-10 09:35] LABS: Absolute Lymphocyte Count 1.11 X10^3/uL (0.83-4.51); Absolute Neutrophil Count 5.8 X10^3/uL (2.0-7.7); Lymphocyte # 1.11 X10^3/ul (0.83-4.51)
[2020-09-10 16:51] LABS: Xtra Tube EP Lab EXTRA TUBE
[2020-09-11 13:14] LABS: Pathologist Review Reviewed
[2020-09-12 20:21] LABS: Tacrolimus (FK506) 10.3 ng/mL (2.0-20.0)
[2020-09-17 09:11] LABS: Mean Corpuscular Hgb 28.3 pg (27.0-32.0); Mean Corpuscular Volume 94.3 fL (80-94); POSITIVE COUNT YES; POSITIVE MORPHOLOGY YES; Platelet Count 180 K/mm3 (150-450); RBC Distribution Width CV 18.8 % (11.6-14.6); RBC Distribution Width SD 65.8 fl (35.1-43.9); Red Blood Count 4.24 M/mm3 (4.6-6.2); White Blood Count 8.1 K/mm3 (4.4-11.0)
[2020-09-17 09:15] LABS: Differential Indicated MANUAL DIFF
[2020-09-17 09:26] LABS: Anion Gap 5 (5-15); BUN 24 mg/dL (7-18); BUN/Creat Ratio 19.5 RATIO (10-20); Calcium,Total 9.2 mg/dL (8.5-10.1); Chloride 110 mmol/L (98-107); Creatinine, Serum 1.23 mg/dL (0.70-1.30); EST Glomerular Filtration Rate 62 mL/min (>60); Est Glom Filt Rate - Afr Amer 74 mL/min (>60); Glucose 104 mg/dL (74-106); Magnesium 1.7 mg/dL (1.6-2.6); Potassium 4.4 mmol/L (3.5-5.1); Sodium Level 139 mmol/L (136-145)
[2020-09-17 09:46] LABS: Eosinophil 5 % (0-5); Lymphocyte 16 % (19-41); Monocyte 5 % (0-10); Neutrophil-Segmented 74 % (47-70); Platelet Estimate ADEQUATE (ADEQ); Red Cell Morphology NORM C+C NORMAL (NORM C&C); Total Cells Counted 100 (MANUAL DIFF)
[2020-09-17 17:09] LABS: Xtra Tube EP Lab EXTRA TUBE
[2020-09-18 14:32] LABS: Pathologist Review Reviewed
[2020-09-19 12:42] LABS: Tacrolimus (FK506) 10.5 ng/mL (2.0-20.0)
[2020-09-24 08:15] LABS: Hematocrit 40.9 % (40-54); Hemoglobin 12.5 g/dL (13.0-16.5); Mean Corp Hgb Conc 30.6 g/dL (32-36); Mean Corpuscular Hgb 28.7 pg (27.0-32.0); Mean Corpuscular Volume 93.8 fL (80-94); Mean Platelet Vol. 10.1 fl (6.2-12.0); POSITIVE COUNT YES; POSITIVE MORPHOLOGY YES; Platelet Count 190 K/mm3 (150-450); RBC Distribution Width CV 19.1 % (11.6-14.6); RBC Distribution Width SD 66.7 fl (35.1-43.9); Red Blood Count 4.36 M/mm3 (4.6-6.2); White Blood Count 6.4 K/mm3 (4.4-11.0)
[2020-09-24 08:21] LABS: Anion Gap 5 (5-15); BUN 30 mg/dL (7-18); BUN/Creat Ratio 21.4 RATIO (10-20); Chloride 108 mmol/L (98-107); EST Glomerular Filtration Rate 53 mL/min (>60); Est Glom Filt Rate - Afr Amer 64 mL/min (>60); Glucose 111 mg/dL (74-106); Magnesium 2.1 mg/dL (1.6-2.6); Potassium 4.7 mmol/L (3.5-5.1); Sodium Level 137 mmol/L (136-145)
[2020-09-24 08:33] LABS: Differential Indicated MANUAL DIFF
[2020-09-24 08:38] LABS: Metamyelocyte 1 % (0-1); Neutrophil-Segmented 71 % (47-70)
[2020-09-24 08:39] LABS: Atypical Lymphocyte 2+ %; Eosinophil 3 % (0-5); Lymphocyte 20 % (19-41); Monocyte 5 % (0-10); Platelet Estimate ADEQUATE (ADEQ); Red Cell Morphology NORM C+C NORMAL (NORM C&C)
[2020-09-24 08:44] LABS: Absolute Lymphocyte Count 1.28 X10^3/uL (0.83-4.51); Absolute Neutrophil Count 4.5 X10^3/uL (2.0-7.7)
[2020-09-24 16:05] LABS: Xtra Tube EP Lab EXTRA TUBE
[2020-09-25 10:21] LABS: Pathologist Review Reviewed
[2020-09-26 08:49] LABS: Tacrolimus (FK506) 10.4 ng/mL (2.0-20.0)
[2020-10-01 08:51] LABS: Hematocrit 39.9 % (40-54); Hemoglobin 12.2 g/dL (13.0-16.5); Mean Corp Hgb Conc 30.6 g/dL (32-36); Mean Corpuscular Volume 94.8 fL (80-94); Mean Platelet Vol. 9.4 fl (6.2-12.0); POSITIVE COUNT YES; POSITIVE MORPHOLOGY YES; Platelet Count 153 K/mm3 (150-450); RBC Distribution Width CV 18.6 % (11.6-14.6); RBC Distribution Width SD 65.1 fl (35.1-43.9); Red Blood Count 4.21 M/mm3 (4.6-6.2); White Blood Count 6.5 K/mm3 (4.4-11.0)
[2020-10-01 09:08] LABS: Differential Indicated MANUAL DIFF
[2020-10-01 09:10] LABS: ALB/GLOB Ratio 1.3 RATIO (0.9-2.4); AST(SGOT) 15 U/L (15-37); Alanine Aminotransfer ALT/SGPT 16 U/L (16-61); Albumin, Serum 3.6 g/dL (3.2-5.0); Alkaline Phosphatase 90 U/L (45-117); Anion Gap 6 (5-15); BUN 30 mg/dL (7-18); BUN/Creat Ratio 23.1 RATIO (10-20); Calcium,Total 9.1 mg/dL (8.5-10.1); Chloride 109 mmol/L (98-107); Cholesterol 219 mg/dL (200); EST Glomerular Filtration Rate 58 mL/min (>60); Est Glom Filt Rate - Afr Amer 70 mL/min (>60); Ferritin 52 ng/mL (26-388); GGTP 21 U/L (15-85); Globulin 2.8 g/dL (2.2-4.2); Glucose 100 mg/dL (74-106); High Density Lipoprotein 64 mg/dL; Iron 65 ug/dL (65-175); Iron Binding Capacity,Total 403 ug/dL (250-450); Phosphorus 3.6 mg/dL (2.5-4.9); Potassium 4.7 mmol/L (3.5-5.1); Protein, Total 6.4 g/dL (6.4-8.2); Sodium Level 139 mmol/L (136-145); Triglycerides 243 mg/dL; Uric Acid 6.4 mg/dL (3.5-7.2); Very Low Density Lipoprotein 49 mg/dL (5-40)
[2020-10-01 09:14] LABS: Myelocyte 3 % (0-0); Neutrophil-Band 1 % (0-5); Neutrophil-Segmented 75 % (47-70)
[2020-10-01 09:15] LABS: Absolute Neutrophil Count 4.9 X10^3/uL (2.0-7.7); Eosinophil 1 % (0-5); Lymphocyte 17 % (19-41); Monocyte 3 % (0-10)
[2020-10-01 09:16] LABS: Absolute Lymphocyte Count 1.11 X10^3/uL (0.83-4.51); Platelet Estimate ADEQUATE (ADEQ)
[2020-10-01 09:17] LABS: Anisocytosis 2+; Red Cell Morphology NORM C+C NORMAL (NORM C&C)
[2020-10-01 09:21] LABS: Hemoglobin A1c 5.8 % (3.8-5.6)
[2020-10-02 12:36] LABS: Pathologist Review Reviewed
[2020-10-03 12:08] LABS: Immunoglobulin A 151 mg/dL (61-437); Immunoglobulin G 385 mg/dL (603-1613); Immunoglobulin M 42 mg/dL (15-143)
[2020-10-03 13:38] LABS: Transferrin 320 mg/dL (177-329)
[2020-10-04 12:46] LABS: Vitamin D,25 Hydroxy 56.7 ng/mL
== END 2020-10-08 23:59 ==
LOC: PAVLAB 08:18
PROVIDERS: PCP Family Medicine
DX: E78.5 Hyperlipidemia, unspecified (principal); E55.9 Vitamin D deficiency, unspecified; D64.9 Anemia, unspecified; R79.9 Abnormal finding of blood chemistry, unspecified; Z94.2 Lung transplant status; Z51.81 Encounter for therapeutic drug level monitoring
CPT/HCPCS: 36415; 80048; 80053; 80061; 80197; 82248; 82306; 82728; 82784; 82977; 83036; 83540; 83550; 83735; 84100; 84466; 84550; 85025; 86769

== ENCOUNTER 2020-10-05 14:15 | Outpatient (RCR) | payer OTHER, SELFPAY ==
--- NOTE | 2020-09-28 06:50 | PCM.PR.TP ---
Exercise - 60-Day Assessment - Physician Prescribed Exercise Modalities: Treadmill, Airdyne, NuStep, SciFit Frequency (days/week): 3 Duration (Minutes):: 30-45 Intensity: 60-80% of age predicted maximum heart rate reserve Aerobic Exercise [30-60 min 3-7x/week]:: Progressing Target heart rate: 96-126 [place]-13 METs - Progression: 0.5-1.0 MET, RPE 11-14 WEEK: 4.5 - increased from 4.0 - Home Exercise Home Exercise:: Yes Mode: Treadmill Disease Management - 60-Day - Medications Medication list reviewed:: Yes Taking medications 100% of the time:: Met Medication reassessment: Yes Pt demonstrates correct technique timing for MDI, Yes Pt demonstrates correct technique timing for DPI, Yes Pt demonstrates correct technique timing for NEB, Yes Pt demonstrates correct technique timing for spacer - Bronchial Hygiene Bronchial Hygiene Plan: Yes Pt demonstrates correctly for effective cough - Return demonstration use of SMI device, Yes Pt demo correct for device - Return demonstartion use of Acapella, Yes Pt demo correct for improved hydration, Yes Pt demo correct for hand hygiene Psychosocial - 60-Day - Assessment Depression reassess: Management of stress: Met, Management of depression: Met, Practicing interventions: Met Tobacco - Initial Assessment Tobacco - 30-Day Assessment Tobacco - 60-Day Assessment - Stage of Change Stages of Change:: Action - Learning Barriers Learning Barriers: Participates in education - Family Support Do you have family support?: Yes - Tobacco Use Tobacco Use: Non-smoker - Education Gave Education Materials For:: Pulmonary Disease, Risk Factors, Breathing Techniques, Medical Compliance, Pulmonary A&P, Exacerbation Signs & Symptoms, Stress & Relaxation Tobacco - 90-Day Assessment Tobacco - Final Assessment Nutrition/Wt Mgmt - 60-Day - Weight Management Weight Assessment:: Wt loss 1-2 lbs per week Weight:: 206 lb - BMI 36.3 Weight Goals Progress:: Progressing Patient Health Questionnaire 60-Day Re-eval Assessment 1. Little interest or pleasure in doing things: Not at all 2. Feeling down, depressed, or hopeless: Not at all 3. Trouble falling or staying asleep, or sleeping too much: Several days 4. Feeling tired or having little energy: Not at all 5. Poor appetite or overeating: Not at all 6. Feeling bad about yourself -- or that you are a failure or have let yourself or your family down: Not at all 7. Trouble concentrating on things, such as reading the newspaper or watching television: Not at all 8. Moving or speaking so slowly that other people could have noticed. Or the opposite - being so fidgety or restless that you have been moving around a lot more than usual: Not at all 9. Thoughts that you would be better off , or of hurting yourself in some way: Not at all How difficult have these problems made it for you to do your work, take care of things at home, or get along with other people?: Somewhat difficult Total Score: 1 Self-Efficacy 60-Day Re-eval Assessment We would like to know how confident you are in doing certain activities. Please select your confidence level for:: Select your confidence level for the following using the scale 1-10 where 1 is not at all confident and 10 is totally confident. Your score is the average of all 6 responses. Fatigue: How confident are you that you can keep the fatigue caused by your disease from interfering with the things you want to do? Select Number: 10 Physical Discomfort or Pain: How confident are you that you can keep the physical discomfort or pain of your disease from interfering with the things you want to do? Select Number: 10 Emotional Distress: How confident are you that you can keep the emotional distress caused by your disease from interfering with the things you want to do? Select Number: 10 Other Symptoms or Health Problems: How confident are you that you can keep other symptoms or health problems from interfering with the things you want to do? Select Number: 10 Different Tasks and Activities: How confident are you that you can do the different tasks and activities needed to manage your health condition so as to reduce your need to see a doctor? Select Number: 10 Medication: How confident are you that you can do things other than just taking medication to reduce how much your illness affects your everyday life? Select Number: 10 Total Score:: 10 Nutrition Survey
== END 2020-10-08 23:59 ==
LOC: PR 14:15
PROVIDERS: PCP Family Medicine
DX: Z48.24 Encounter for aftercare following lung transplant (principal); Z51.81 Encounter for therapeutic drug level monitoring; E78.5 Hyperlipidemia, unspecified; E55.9 Vitamin D deficiency, unspecified; D64.9 Anemia, unspecified; R79.9 Abnormal finding of blood chemistry, unspecified; Z94.2 Lung transplant status
CPT/HCPCS: 97150; G0239

== ENCOUNTER 2020-11-06 08:59 | Outpatient (RCR) | payer OTHER, SELFPAY ==
[2020-10-09 09:26] LABS: Hematocrit 39.9 % (40-54); Hemoglobin 12.6 g/dL (13.0-16.5); Mean Corp Hgb Conc 31.6 g/dL (32-36); Mean Corpuscular Hgb 29.6 pg (27.0-32.0); Mean Corpuscular Volume 93.7 fL (80-94); Mean Platelet Vol. 9.6 fl (6.2-12.0); POSITIVE COUNT YES; POSITIVE MORPHOLOGY YES; Platelet Count 163 K/mm3 (150-450); RBC Distribution Width CV 18.2 % (11.6-14.6); RBC Distribution Width SD 62.9 fl (35.1-43.9); Red Blood Count 4.26 M/mm3 (4.6-6.2); White Blood Count 7.1 K/mm3 (4.4-11.0)
[2020-10-09 09:27] LABS: Differential Indicated MANUAL DIFF
[2020-10-09 09:41] LABS: BUN 33 mg/dL (7-18); Creatinine, Serum 1.61 mg/dL (0.70-1.30); Glucose 105 mg/dL (74-106)
[2020-10-09 09:42] LABS: Anion Gap 7 (5-15); BUN/Creat Ratio 20.5 RATIO (10-20); Calcium,Total 9.6 mg/dL (8.5-10.1); Chloride 108 mmol/L (98-107); EST Glomerular Filtration Rate 45 mL/min (>60); Est Glom Filt Rate - Afr Amer 55 mL/min (>60); Magnesium 1.8 mg/dL (1.6-2.6); Potassium 4.8 mmol/L (3.5-5.1); Sodium Level 138 mmol/L (136-145)
[2020-10-09 09:50] LABS: Eosinophil 3 % (0-5); Lymphocyte 12 % (19-41); Monocyte 12 % (0-10); Neutrophil-Segmented 73 % (47-70); Platelet Estimate ADEQUATE (ADEQ); Red Cell Morphology NORM C+C NORMAL (NORM C&C); Total Cells Counted 100 (MANUAL DIFF)
[2020-10-09 09:51] LABS: Absolute Neutrophil Count 5.2 X10^3/uL (2.0-7.7)
[2020-10-09 17:21] LABS: Xtra Tube EP Lab EXTRA TUBE
[2020-10-10 13:52] LABS: Pathologist Review Reviewed
[2020-10-11 10:15] LABS: Tacrolimus (FK506) 11.9 ng/mL (2.0-20.0)
[2020-10-15 08:59] LABS: Hematocrit 39.7 % (40-54); Hemoglobin 12.5 g/dL (13.0-16.5); Mean Corp Hgb Conc 31.5 g/dL (32-36); Mean Corpuscular Hgb 29.7 pg (27.0-32.0); Mean Corpuscular Volume 94.3 fL (80-94); Mean Platelet Vol. 9.9 fl (6.2-12.0); POSITIVE COUNT YES; POSITIVE MORPHOLOGY YES; Platelet Count 175 K/mm3 (150-450); RBC Distribution Width CV 18.1 % (11.6-14.6); RBC Distribution Width SD 62.6 fl (35.1-43.9); Red Blood Count 4.21 M/mm3 (4.6-6.2); White Blood Count 7.4 K/mm3 (4.4-11.0)
[2020-10-15 09:01] LABS: Differential Indicated MANUAL DIFF
[2020-10-15 09:14] LABS: Anion Gap 10 (5-15); BUN 34 mg/dL (7-18); BUN/Creat Ratio 21.5 RATIO (10-20); Chloride 107 mmol/L (98-107); Creatinine, Serum 1.58 mg/dL (0.70-1.30); EST Glomerular Filtration Rate 46 mL/min (>60); Est Glom Filt Rate - Afr Amer 56 mL/min (>60); Glucose 110 mg/dL (74-106); Magnesium 1.9 mg/dL (1.6-2.6); Potassium 4.8 mmol/L (3.5-5.1); Sodium Level 139 mmol/L (136-145)
[2020-10-15 09:40] LABS: Lymphocyte 15 % (19-41); Metamyelocyte 1 % (0-1); Monocyte 6 % (0-10); Neutrophil-Segmented 78 % (47-70); Total Cells Counted 100 (MANUAL DIFF)
[2020-10-15 09:41] LABS: Platelet Estimate ADEQUATE (ADEQ); Red Cell Morphology NORM C+C NORMAL (NORM C&C)
[2020-10-15 09:42] LABS: Absolute Neutrophil Count 5.8 X10^3/uL (2.0-7.7)
[2020-10-15 16:56] LABS: Xtra Tube EP Lab EXTRA TUBE
[2020-10-16 10:52] LABS: Pathologist Review Reviewed
[2020-10-17 20:26] LABS: Tacrolimus (FK506) 13.9 ng/mL (2.0-20.0)
[2020-10-22 08:50] LABS: Hemoglobin 12.4 g/dL (13.0-16.5); Mean Corp Hgb Conc 31.8 g/dL (32-36); Mean Corpuscular Hgb 29.7 pg (27.0-32.0); Mean Corpuscular Volume 93.5 fL (80-94); Mean Platelet Vol. 9.5 fl (6.2-12.0); POSITIVE COUNT YES; POSITIVE MORPHOLOGY YES; Platelet Count 164 K/mm3 (150-450); RBC Distribution Width CV 17.4 % (11.6-14.6); RBC Distribution Width SD 60.4 fl (35.1-43.9); Red Blood Count 4.17 M/mm3 (4.6-6.2); White Blood Count 6.6 K/mm3 (4.4-11.0)
[2020-10-22 08:53] LABS: Differential Indicated MANUAL DIFF
[2020-10-22 08:58] LABS: Anion Gap 10 (5-15); BUN 29 mg/dL (7-18); BUN/Creat Ratio 19.9 RATIO (10-20); Calcium,Total 9.5 mg/dL (8.5-10.1); Chloride 107 mmol/L (98-107); Creatinine, Serum 1.46 mg/dL (0.70-1.30); EST Glomerular Filtration Rate 50 mL/min (>60); Est Glom Filt Rate - Afr Amer 61 mL/min (>60); Glucose 104 mg/dL (74-106); Magnesium 1.9 mg/dL (1.6-2.6); Potassium 4.7 mmol/L (3.5-5.1); Sodium Level 140 mmol/L (136-145)
[2020-10-22 09:26] LABS: Eosinophil 1 % (0-5); Lymphocyte 16 % (19-41); Monocyte 2 % (0-10); Myelocyte 1 % (0-0); Neutrophil-Band 1 % (0-5); Neutrophil-Segmented 79 % (47-70); Platelet Estimate ADEQUATE (ADEQ); Red Cell Morphology NORM C+C NORMAL (NORM C&C); Total Cells Counted 100 (MANUAL DIFF)
[2020-10-22 09:28] LABS: Absolute Lymphocyte Count 1.06 X10^3/uL (0.83-4.51); Absolute Neutrophil Count 5.3 X10^3/uL (2.0-7.7)
[2020-10-22 16:42] LABS: Xtra Tube EP Lab EXTRA TUBE
[2020-10-23 12:54] LABS: Pathologist Review Reviewed
[2020-10-24 13:17] LABS: Tacrolimus (FK506) 11.6 ng/mL (2.0-20.0)
[2020-10-29 09:14] LABS: Hematocrit 38.6 % (40-54); Hemoglobin 11.9 g/dL (13.0-16.5); Mean Corp Hgb Conc 30.8 g/dL (32-36); Mean Corpuscular Hgb 30.1 pg (27.0-32.0); Mean Corpuscular Volume 97.7 fL (80-94); Mean Platelet Vol. 9.5 fl (6.2-12.0); POSITIVE COUNT YES; POSITIVE MORPHOLOGY YES; Platelet Count 161 K/mm3 (150-450); RBC Distribution Width CV 17.2 % (11.6-14.6); RBC Distribution Width SD 62.4 fl (35.1-43.9); Red Blood Count 3.95 M/mm3 (4.6-6.2); White Blood Count 6.3 K/mm3 (4.4-11.0)
[2020-10-29 09:25] LABS: Differential Indicated MANUAL DIFF
[2020-10-29 09:27] LABS: AST(SGOT) 18 U/L (15-37); Alanine Aminotransfer ALT/SGPT 17 U/L (16-61); Albumin, Serum 3.7 g/dL (3.2-5.0); Alkaline Phosphatase 93 U/L (45-117); Anion Gap 9 (5-15); BUN 39 mg/dL (7-18); BUN/Creat Ratio 22.9 RATIO (10-20); Bilirubin, Direct 0.08 mg/dL (0.00-0.30); Calcium,Total 9.1 mg/dL (8.5-10.1); Chloride 108 mmol/L (98-107); EST Glomerular Filtration Rate 42 mL/min (>60); Est Glom Filt Rate - Afr Amer 51 mL/min (>60); GGTP 23 U/L (15-85); Globulin 2.9 g/dL (2.2-4.2); Glucose 106 mg/dL (74-106); Magnesium 1.9 mg/dL (1.6-2.6); Phosphorus 3.5 mg/dL (2.5-4.9); Potassium 5.1 mmol/L (3.5-5.1); Protein, Total 6.6 g/dL (6.4-8.2); Sodium Level 140 mmol/L (136-145)
[2020-10-29 10:05] LABS: Lymphocyte 16 % (19-41); Monocyte 10 % (0-10); Neutrophil-Band 1 % (0-5); Neutrophil-Segmented 73 % (47-70); Total Cells Counted 100 (MANUAL DIFF)
[2020-10-29 10:06] LABS: Platelet Estimate ADEQUATE (ADEQ); Red Cell Morphology NORM C+C NORMAL (NORM C&C)
[2020-10-29 10:07] LABS: Absolute Neutrophil Count 4.7 X10^3/uL (2.0-7.7)
[2020-10-29 10:08] LABS: Absolute Lymphocyte Count 1.01 X10^3/uL (0.83-4.51)
[2020-10-29 17:07] LABS: Xtra Tube EP Lab EXTRA TUBE
[2020-10-30 11:49] LABS: Pathologist Review Reviewed
[2020-10-31 18:35] LABS: Tacrolimus (FK506) 12.1 ng/mL (2.0-20.0)
[2020-11-06 09:15] LABS: Absolute Lymphocyte Count 0.81 X10^3/uL (0.83-4.51); Absolute Neutrophil Count 5.1 X10^3/uL (2.0-7.7); Basophil# 0.01 X10^3/uL; Basophil% 0.1 % (0-1); Eosinophil# 0.09 X10^3/uL; Eosinophils% 1.3 % (0-5); Hemoglobin 13.3 g/dL (13.0-16.5); Lymphocyte # 0.81 X10^3/ul (0.83-4.51); Lymphocyte % 11.8 % (19-41); Mean Corp Hgb Conc 32.4 g/dL (32-36); Mean Corpuscular Hgb 30.7 pg (27.0-32.0); Mean Corpuscular Volume 94.7 fL (80-94); Mean Platelet Vol. 9.2 fl (6.2-12.0); Monocyte# 0.63 X10^3/uL; Monocyte% 9.1 % (0-10); NRBC Flagged by Analyzer 0 % (0-5); Neutrophil % 74.1 % (47-70); Platelet Count 174 K/mm3 (150-450); RBC Distribution Width CV 16.5 % (11.6-14.6); RBC Distribution Width SD 57.1 fl (35.1-43.9); Red Blood Count 4.33 M/mm3 (4.6-6.2); White Blood Count 6.9 K/mm3 (4.4-11.0)
[2020-11-06 09:28] LABS: Anion Gap 9 (5-15); BUN 28 mg/dL (7-18); BUN/Creat Ratio 13.7 RATIO (10-20); Calcium,Total 9.7 mg/dL (8.5-10.1); Chloride 104 mmol/L (98-107); Creatinine, Serum 2.05 mg/dL (0.70-1.30); EST Glomerular Filtration Rate 34 mL/min (>60); Est Glom Filt Rate - Afr Amer 41 mL/min (>60); Glucose 138 mg/dL (74-106); Magnesium 1.7 mg/dL (1.6-2.6); Potassium 4.7 mmol/L (3.5-5.1); Sodium Level 136 mmol/L (136-145)
[2020-11-06 17:12] LABS: Xtra Tube EP Lab EXTRA TUBE
[2020-11-10 07:30] LABS: Tacrolimus (FK506) 7.2 ng/mL (2.0-20.0)
== END 2020-11-07 23:59 ==
LOC: PAVLAB 08:59
PROVIDERS: PCP Family Medicine
DX: E78.5 Hyperlipidemia, unspecified (principal); E55.9 Vitamin D deficiency, unspecified; D64.9 Anemia, unspecified; R79.9 Abnormal finding of blood chemistry, unspecified; Z94.2 Lung transplant status; Z51.81 Encounter for therapeutic drug level monitoring
CPT/HCPCS: 36415; 80048; 80076; 80197; 82977; 83735; 84100; 84550; 85025

== ENCOUNTER 2020-11-07 14:30 | Outpatient (RCR) | payer OTHER, SELFPAY ==
--- NOTE | 2020-10-29 06:50 | PCM.PR.TP ---
Exercise - 90-Day Assessment - Physician Prescribed Exercise Modalities: Treadmill, NuStep, SciFit Frequency (days/week): 3 Duration (minutes): 30-45 Aerobic Exercise [30-60 min 3-7x/week]:: Progressing Target heart rate: 96-126 [place]-15 METs - Progression: 0.5-1.0 MET, RPE 11-14 WEEK: 4.5 - max per patient - Home Exercise Home Exercise?: Yes Mode: Treadmill Frequency:: every other day opposite of [place] Time (minutes):: 30 Disease Management - 90-Day - Medications Medication list reviewed:: Yes Taking medications 100% of the time:: Met Medication reassessment: Yes Pt demonstrates correct technique timing for MDI, Yes Pt demonstrates correct technique timing for DPI, Yes Pt demonstrates correct technique timing for NEB, Yes Pt demonstrates correct technique timing for spacer - Bronchial Hygiene Bronchial Hygiene Plan: Yes Pt demo correct for device, Yes Pt demo correct for improved hydration, Yes Pt demo correct for hand hygiene, Yes Pt demo correct for verbalize when to call MD Psychosocial - 90-Day - Assessment Depression reassess: Management of stress: Met, Management of depression: Met, Practicing interventions: Met Tobacco - Initial Assessment Tobacco - 30-Day Assessment Tobacco - 60-Day Assessment Tobacco - 90-Day Assessment - Stage of Change Stages of Change:: Action - Learning Barriers Learning Barriers: Participates in education - Family Support Do you have family support?: Yes - Tobacco Use Tobacco Use: Non-smoker - Intervention Smoking Cessation Referral:: No Individual Education/Counseling:: No Education Schedule Given:: Yes - Education Gave Education Materials For:: Pulmonary Disease, Risk Factors, Breathing Techniques, Medical Compliance, Pulmonary A&P, Exacerbation Signs & Symptoms, Stress & Relaxation Tobacco - Final Assessment Nutrition/Wt Mgmt - 90-Day - Weight Management Weight:: 207 lb - BMI 36.3 Weight Goals Progress:: Progressing Patient Health Questionnaire 90-Day Re-eval Assessment 1. Little interest or pleasure in doing things: Not at all 2. Feeling down, depressed, or hopeless: Not at all 3. Trouble falling or staying asleep, or sleeping too much: Not at all 4. Feeling tired or having little energy: Not at all 5. Poor appetite or overeating: Not at all 6. Feeling bad about yourself -- or that you are a failure or have let yourself or your family down: Not at all 7. Trouble concentrating on things, such as reading the newspaper or watching television: Not at all 8. Moving or speaking so slowly that other people could have noticed. Or the opposite - being so fidgety or restless that you have been moving around a lot more than usual: Not at all 9. Thoughts that you would be better off , or of hurting yourself in some way: Not at all How difficult have these problems made it for you to do your work, take care of things at home, or get along with other people?: Not difficult at all Total Score: 0 COPD Knowledge Test Discharge COPD is a lung disease that:: Makes it hard to breathe & gets worse over time In the [place] the term COPD describes 2 main lung conditions:: Emphysema & chronic bronchitis The most common lung irritant that causes COPD is:: Cigarette smoke Common signs and symptoms of COPD include:: An ongoing cough/cough that produces a large amount of mucus, & SOB If you have COPD, what steps can you take?: All of the above Swelling of the ankles is common in COPD:: False Fatigue [tiredness] is common in COPD:: True Wheezing is common in COPD:: True Crushing chest pain is common in COPD:: False Rapid weight loss is common in COPD:: False Breathlessness is a normal response to exercise: True Exercise should be avoided if it makes you short of breath: False All bronchodilators act within 10 minutes: False A spacer device increases the medication to the lungs: True Annual flu vaccine is recommended for pts w/lung disease: True COPD Knowledge Test Total Score:: 15 COPD Assessment Test [CAT] - Questions Never cough = 0, Cough all the time = 5: 1 No phlegm = 0, Chest full of phlegm = 5: 0 No chest tightness = 0, Chest very tight = 5: 0 No breathless w/exertion = 0, Very breathless w/exertion = 5: 0 No limitations w/activity = 0, Very limited w/activity = 5: 1 Confident leaving home = 0, Not at all confident = 5: 0 Sleep soundly = 0, Don't sleep soundly = 5: 1 Lots of energy = 0, No energy at all = 5: 1 Total CAT score:: 4 Self-Efficacy 90-Day Re-eval Assessment We would like to know how confident you are in doing certain activities. Please select your confidence level for:: Select your confidence level for the following using the scale 1-10 where 1 is not at all confident and 10 is totally confident. Your score is the average of all 6 responses. Fatigue: How confident are you that you can keep the fatigue caused by your disease from interfering with the things you want to do? Select Number: 9 Physical Discomfort or Pain: How confident are you that you can keep the physical discomfort or pain of your disease from interfering with the things you want to do? Select Number: 9 Emotional Distress: How confident are you that you can keep the emotional distress caused by your disease from interfering with the things you want to do? Select Number: 10 Other Symptoms or Health Problems: How confident are you that you can keep other symptoms or health problems from interfering with the things you want to do? Select Number: 10 Different Tasks and Activities: How confident are you that you can do the different tasks and activities needed to manage your health condition so as to reduce your need to see a doctor? Select Number: 10 Medication: How confident are you that you can do things other than just taking medication to reduce how much your illness affects your everyday life? Select Number: 10 Total Score:: 9 Nutrition Survey - Nutrition Survey Discharge Have you lost >10 lbs over the past 2 months without trying?: No Are you following a special diet at home for diabetes, low fat, or low salt?: No Are you interested in meeting with a dietitian for help understanding your diet?: No Do you eat less than 3 meals a day?: No Do you eat fatty meats (hicks, sausage, ribs, etc), fried foods, desserts, large amounts of salad dressings, margarine, butter, or cheese most days?: No Do you have food allergies? [Enter types in comment field]: No Do you eat in restaurants more than 3 times a week?: No Do you season food with salt, seasoning salt, or garlic salt?: No Do you used canned, boxed, frozen meals, or soups, seasoning packets?: No Total Score:: 0
== END 2020-11-07 23:59 ==
LOC: PR 14:30
PROVIDERS: PCP Family Medicine
DX: Z48.24 Encounter for aftercare following lung transplant (principal); Z51.81 Encounter for therapeutic drug level monitoring; E78.5 Hyperlipidemia, unspecified; E55.9 Vitamin D deficiency, unspecified; D64.9 Anemia, unspecified; R79.9 Abnormal finding of blood chemistry, unspecified; Z94.2 Lung transplant status
CPT/HCPCS: 97150; G0239

== ENCOUNTER 2020-11-16 14:30 | Outpatient (RCR) | payer OTHER, SELFPAY ==
[2020-10-23 12:43] VITALS: BMI 31.6
== END 2020-12-08 23:59 ==
LOC: PR 14:30
PROVIDERS: PCP Family Medicine
DX: Z48.24 Encounter for aftercare following lung transplant (principal); Z51.81 Encounter for therapeutic drug level monitoring; E78.5 Hyperlipidemia, unspecified; E55.9 Vitamin D deficiency, unspecified; D64.9 Anemia, unspecified; R79.9 Abnormal finding of blood chemistry, unspecified; Z94.2 Lung transplant status
CPT/HCPCS: 97150; G0239

== ENCOUNTER 2020-12-03 09:17 | Outpatient (RCR) | payer OTHER, SELFPAY ==
[2020-10-23 12:43] VITALS: BMI 31.6
[2020-11-13 10:24] LABS: Absolute Neutrophil Count 4.3 X10^3/uL (2.0-7.7); Basophil# 0.03 X10^3/uL; Basophil% 0.5 % (0-1); Eosinophil# 0.12 X10^3/uL; Eosinophils% 2.1 % (0-5); Hematocrit 36.6 % (40-54); Hemoglobin 11.7 g/dL (13.0-16.5); Lymphocyte % 13.7 % (19-41); Mean Corpuscular Hgb 31.2 pg (27.0-32.0); Mean Corpuscular Volume 97.6 fL (80-94); Mean Platelet Vol. 9.3 fl (6.2-12.0); Monocyte# 0.45 X10^3/uL; Monocyte% 7.7 % (0-10); NRBC Flagged by Analyzer 0 % (0-5); Neutrophil # 4.32 X10^3/uL (2.7-7.7); Neutrophil % 73.8 % (47-70); Platelet Count 161 K/mm3 (150-450); RBC Distribution Width CV 15.9 % (11.6-14.6); RBC Distribution Width SD 57.5 fl (35.1-43.9); Red Blood Count 3.75 M/mm3 (4.6-6.2); White Blood Count 5.9 K/mm3 (4.4-11.0)
[2020-11-13 10:39] LABS: Anion Gap 2 (5-15); BUN 26 mg/dL (7-18); BUN/Creat Ratio 18.4 RATIO (10-20); Calcium,Total 8.6 mg/dL (8.5-10.1); Chloride 110 mmol/L (98-107); Creatinine, Serum 1.41 mg/dL (0.70-1.30); EST Glomerular Filtration Rate 53 mL/min (>60); Est Glom Filt Rate - Afr Amer 64 mL/min (>60); Glucose 99 mg/dL (74-106); Phosphorus 2.7 mg/dL (2.5-4.9); Potassium 4.4 mmol/L (3.5-5.1); Sodium Level 138 mmol/L (136-145)
[2020-11-13 18:21] LABS: Xtra Tube EP Lab EXTRA TUBE
[2020-11-14 16:11] LABS: Tacrolimus (FK506) 4.3 ng/mL (2.0-20.0)
[2020-11-19 09:07] LABS: Hematocrit 38.2 % (40-54); Hemoglobin 12.2 g/dL (13.0-16.5); Mean Corp Hgb Conc 31.9 g/dL (32-36); Mean Corpuscular Hgb 31.8 pg (27.0-32.0); Mean Corpuscular Volume 99.5 fL (80-94); Mean Platelet Vol. 9.3 fl (6.2-12.0); POSITIVE COUNT YES; POSITIVE MORPHOLOGY YES; Platelet Count 180 K/mm3 (150-450); RBC Distribution Width CV 15.3 % (11.6-14.6); RBC Distribution Width SD 56.5 fl (35.1-43.9); Red Blood Count 3.84 M/mm3 (4.6-6.2); White Blood Count 6.5 K/mm3 (4.4-11.0)
[2020-11-19 09:13] LABS: Differential Indicated MANUAL DIFF
[2020-11-19 09:23] LABS: Anion Gap 6 (5-15); BUN 27 mg/dL (7-18); BUN/Creat Ratio 20.8 RATIO (10-20); Calcium,Total 9.1 mg/dL (8.5-10.1); Chloride 108 mmol/L (98-107); EST Glomerular Filtration Rate 58 mL/min (>60); Est Glom Filt Rate - Afr Amer 70 mL/min (>60); Glucose 92 mg/dL (74-106); Magnesium 2.1 mg/dL (1.6-2.6); Potassium 4.3 mmol/L (3.5-5.1); Sodium Level 141 mmol/L (136-145)
[2020-11-19 09:59] LABS: Anisocytosis 1+; Eosinophil 1 % (0-5); Lymphocyte 14 % (19-41); Monocyte 11 % (0-10); Neutrophil-Band 2 % (0-5); Neutrophil-Segmented 72 % (47-70); Platelet Estimate ADEQUATE (ADEQ); Red Cell Morphology N CHROM NORMAL (NORM C&C); Total Cells Counted 100 (MANUAL DIFF)
[2020-11-19 10:01] LABS: Absolute Lymphocyte Count 0.91 X10^3/uL (0.83-4.51); Absolute Neutrophil Count 4.8 X10^3/uL (2.0-7.7)
[2020-11-19 17:00] LABS: Xtra Tube EP Lab EXTRA TUBE
[2020-11-20 13:11] LABS: Pathologist Review Reviewed
[2020-11-22 16:16] LABS: Tacrolimus (FK506) 3.8 ng/mL (2.0-20.0)
[2020-12-03 09:32] LABS: Hematocrit 37.9 % (40-54); Hemoglobin 12.2 g/dL (13.0-16.5); Mean Corp Hgb Conc 32.2 g/dL (32-36); Mean Corpuscular Hgb 32.4 pg (27.0-32.0); Mean Corpuscular Volume 100.8 fL (80-94); Mean Platelet Vol. 8.8 fl (6.2-12.0); POSITIVE COUNT YES; POSITIVE MORPHOLOGY YES; Platelet Count 182 K/mm3 (150-450); RBC Distribution Width CV 14.6 % (11.6-14.6); RBC Distribution Width SD 53.9 fl (35.1-43.9); Red Blood Count 3.76 M/mm3 (4.6-6.2)
[2020-12-03 09:36] LABS: Differential Indicated MANUAL DIFF
[2020-12-03 09:44] LABS: Anion Gap 4 (5-15); BUN 22 mg/dL (7-18); BUN/Creat Ratio 20.8 RATIO (10-20); Calcium,Total 9.2 mg/dL (8.5-10.1); Chloride 110 mmol/L (98-107); Creatinine, Serum 1.06 mg/dL (0.70-1.30); EST Glomerular Filtration Rate 73 mL/min (>60); Est Glom Filt Rate - Afr Amer 88 mL/min (>60); Glucose 101 mg/dL (74-106); Magnesium 2.1 mg/dL (1.6-2.6); Potassium 4.2 mmol/L (3.5-5.1); Sodium Level 140 mmol/L (136-145)
[2020-12-03 10:02] LABS: Eosinophil 4 % (0-5); Lymphocyte 17 % (19-41); Monocyte 5 % (0-10); Neutrophil-Segmented 74 % (47-70); Platelet Estimate ADEQUATE (ADEQ); Total Cells Counted 100 (MANUAL DIFF)
[2020-12-03 10:03] LABS: Macrocytosis RARE
[2020-12-03 10:04] LABS: Absolute Lymphocyte Count 1.03 X10^3/uL (0.83-4.51); Absolute Neutrophil Count 4.5 X10^3/uL (2.0-7.7)
[2020-12-03 17:29] LABS: Xtra Tube EP Lab EXTRA TUBE
[2020-12-04 12:06] LABS: Pathologist Review Reviewed
[2020-12-05 12:36] LABS: Tacrolimus (FK506) 5.2 ng/mL (2.0-20.0)
== END 2020-12-08 23:59 ==
LOC: PAVLAB 09:17
PROVIDERS: PCP Family Medicine
DX: E78.5 Hyperlipidemia, unspecified (principal); E55.9 Vitamin D deficiency, unspecified; D64.9 Anemia, unspecified; R79.9 Abnormal finding of blood chemistry, unspecified; Z94.2 Lung transplant status; Z51.81 Encounter for therapeutic drug level monitoring
CPT/HCPCS: 36415; 80048; 80197; 83735; 84100; 85025

== ENCOUNTER 2020-12-11 06:55 | Outpatient (RCR) | payer SELFPAY ==
[2020-10-23 12:43] VITALS: BMI 31.6
== END 2021-01-08 23:59 ==
LOC: PR 06:55
PROVIDERS: PCP Family Medicine; Referring Provider Internal Medicine Critical Care Medicine; Visit Provider Internal Medicine Critical Care Medicine
DX: Z00.00 Encounter for general adult medical examination without abnormal findings (principal)

== ENCOUNTER 2021-01-07 08:40 | Outpatient (RCR) | payer OTHER, SELFPAY ==
[2020-10-23 12:43] VITALS: BMI 31.6
[2020-12-10 09:22] LABS: Absolute Lymphocyte Count 0.93 X10^3/uL (0.83-4.51); Absolute Neutrophil Count 3.9 X10^3/uL (2.0-7.7); Basophil# 0.04 X10^3/uL; Basophil% 0.7 % (0-1); Eosinophil# 0.15 X10^3/uL; Eosinophils% 2.6 % (0-5); Hematocrit 37.3 % (40-54); Hemoglobin 11.8 g/dL (13.0-16.5); Lymphocyte # 0.93 X10^3/ul (0.83-4.51); Lymphocyte % 16.4 % (19-41); Mean Corp Hgb Conc 31.6 g/dL (32-36); Mean Corpuscular Hgb 32.4 pg (27.0-32.0); Mean Corpuscular Volume 102.5 fL (80-94); Mean Platelet Vol. 9.3 fl (6.2-12.0); Monocyte# 0.46 X10^3/uL; Monocyte% 8.1 % (0-10); NRBC Flagged by Analyzer 0 % (0-5); Neutrophil # 3.92 X10^3/uL (2.7-7.7); Neutrophil % 69.2 % (47-70); Platelet Count 179 K/mm3 (150-450); RBC Distribution Width CV 13.9 % (11.6-14.6); RBC Distribution Width SD 52.9 fl (35.1-43.9); Red Blood Count 3.64 M/mm3 (4.6-6.2); White Blood Count 5.7 K/mm3 (4.4-11.0)
[2020-12-10 09:33] LABS: Anion Gap 3 (5-15); BUN 28 mg/dL (7-18); Calcium,Total 8.9 mg/dL (8.5-10.1); Chloride 110 mmol/L (98-107); Creatinine, Serum 1.22 mg/dL (0.70-1.30); EST Glomerular Filtration Rate 62 mL/min (>60); Est Glom Filt Rate - Afr Amer 75 mL/min (>60); Glucose 102 mg/dL (74-106); Magnesium 2.2 mg/dL (1.6-2.6); Potassium 4.2 mmol/L (3.5-5.1); Sodium Level 139 mmol/L (136-145)
[2020-12-10 17:17] LABS: Xtra Tube EP Lab EXTRA TUBE
[2020-12-12 13:57] LABS: Tacrolimus (FK506) 5.5 ng/mL (2.0-20.0)
[2020-12-17 10:02] LABS: Absolute Lymphocyte Count 1.16 X10^3/uL (0.83-4.51); Absolute Neutrophil Count 3.8 X10^3/uL (2.0-7.7); Basophil# 0.03 X10^3/uL; Basophil% 0.5 % (0-1); Eosinophil# 0.17 X10^3/uL; Eosinophils% 2.9 % (0-5); Hematocrit 38.5 % (40-54); Hemoglobin 12.2 g/dL (13.0-16.5); Lymphocyte # 1.16 X10^3/ul (0.83-4.51); Lymphocyte % 20.1 % (19-41); Mean Corp Hgb Conc 31.7 g/dL (32-36); Mean Corpuscular Hgb 32.7 pg (27.0-32.0); Mean Corpuscular Volume 103.2 fL (80-94); Mean Platelet Vol. 8.9 fl (6.2-12.0); Monocyte# 0.35 X10^3/uL; Monocyte% 6.1 % (0-10); NRBC Flagged by Analyzer 0 % (0-5); Neutrophil # 3.81 X10^3/uL (2.7-7.7); Neutrophil % 65.9 % (47-70); Platelet Count 192 K/mm3 (150-450); RBC Distribution Width CV 14.1 % (11.6-14.6); RBC Distribution Width SD 53.2 fl (35.1-43.9); Red Blood Count 3.73 M/mm3 (4.6-6.2); White Blood Count 5.8 K/mm3 (4.4-11.0)
[2020-12-17 10:13] LABS: Anion Gap 6 (5-15); BUN 26 mg/dL (7-18); BUN/Creat Ratio 24.5 RATIO (10-20); Calcium,Total 8.7 mg/dL (8.5-10.1); Chloride 112 mmol/L (98-107); Creatinine, Serum 1.06 mg/dL (0.70-1.30); EST Glomerular Filtration Rate 73 mL/min (>60); Est Glom Filt Rate - Afr Amer 88 mL/min (>60); Glucose 108 mg/dL (74-106); Magnesium 1.6 mg/dL (1.6-2.6); Sodium Level 144 mmol/L (136-145)
[2020-12-17 18:57] LABS: Xtra Tube EP Lab EXTRA TUBE
[2020-12-24 10:33] LABS: Absolute Lymphocyte Count 0.92 X10^3/uL (0.83-4.51); Absolute Neutrophil Count 3.7 X10^3/uL (2.0-7.7); Basophil# 0.02 X10^3/uL; Basophil% 0.4 % (0-1); Eosinophil# 0.14 X10^3/uL; Eosinophils% 2.5 % (0-5); Hematocrit 39.5 % (40-54); Hemoglobin 12.5 g/dL (13.0-16.5); Lymphocyte # 0.92 X10^3/ul (0.83-4.51); Lymphocyte % 16.7 % (19-41); Mean Corp Hgb Conc 31.6 g/dL (32-36); Mean Corpuscular Hgb 32.5 pg (27.0-32.0); Mean Corpuscular Volume 102.6 fL (80-94); Mean Platelet Vol. 8.9 fl (6.2-12.0); Monocyte% 9.1 % (0-10); NRBC Flagged by Analyzer 0 % (0-5); Neutrophil # 3.67 X10^3/uL (2.7-7.7); Neutrophil % 66.4 % (47-70); Platelet Count 170 K/mm3 (150-450); RBC Distribution Width CV 13.2 % (11.6-14.6); RBC Distribution Width SD 49.4 fl (35.1-43.9); Red Blood Count 3.85 M/mm3 (4.6-6.2); White Blood Count 5.5 K/mm3 (4.4-11.0)
[2020-12-24 10:50] LABS: AST(SGOT) 12 U/L (15-37); Alanine Aminotransfer ALT/SGPT 20 U/L (16-61); Albumin, Serum 3.7 g/dL (3.2-5.0); Alkaline Phosphatase 81 U/L (45-117); Anion Gap 6 (5-15); BUN 37 mg/dL (7-18); BUN/Creat Ratio 26.6 RATIO (10-20); Bilirubin, Direct 0.08 mg/dL (0.00-0.30); Calcium,Total 8.9 mg/dL (8.5-10.1); Chloride 110 mmol/L (98-107); Creatinine, Serum 1.39 mg/dL (0.70-1.30); EST Glomerular Filtration Rate 53 mL/min (>60); Est Glom Filt Rate - Afr Amer 65 mL/min (>60); GGTP 21 U/L (15-85); Globulin 2.8 g/dL (2.2-4.2); Glucose 101 mg/dL (74-106); Magnesium 1.8 mg/dL (1.6-2.6); Potassium 4.5 mmol/L (3.5-5.1); Protein, Total 6.5 g/dL (6.4-8.2); Sodium Level 141 mmol/L (136-145)
[2020-12-24 18:28] LABS: Xtra Tube EP Lab EXTRA TUBE
[2020-12-31 09:33] LABS: Hematocrit 39.1 % (40-54); Hemoglobin 12.5 g/dL (13.0-16.5); Mean Corpuscular Hgb 32.3 pg (27.0-32.0); Mean Platelet Vol. 9.3 fl (6.2-12.0); POSITIVE COUNT YES; POSITIVE MORPHOLOGY YES; Platelet Count 169 K/mm3 (150-450); RBC Distribution Width CV 12.5 % (11.6-14.6); RBC Distribution Width SD 46.9 fl (35.1-43.9); Red Blood Count 3.87 M/mm3 (4.6-6.2); White Blood Count 4.2 K/mm3 (4.4-11.0)
[2020-12-31 09:40] LABS: Differential Indicated MANUAL DIFF
[2020-12-31 09:50] LABS: Hemoglobin A1c 5.1 % (3.8-5.6)
[2020-12-31 09:51] LABS: Anion Gap 4 (5-15); BUN 35 mg/dL (7-18); BUN/Creat Ratio 30.7 RATIO (10-20); Chloride 110 mmol/L (98-107); Cholesterol 255 mg/dL (200); Creatinine, Serum 1.14 mg/dL (0.70-1.30); EST Glomerular Filtration Rate 67 mL/min (>60); Est Glom Filt Rate - Afr Amer 81 mL/min (>60); Ferritin 46 ng/mL (26-388); Glucose 98 mg/dL (74-106); High Density Lipoprotein 56 mg/dL; Iron 83 ug/dL (65-175); Iron Binding Capacity,Total 385 ug/dL (250-450); Magnesium 1.7 mg/dL (1.6-2.6); Potassium 4.2 mmol/L (3.5-5.1); Sodium Level 139 mmol/L (136-145); Triglycerides 204 mg/dL; Very Low Density Lipoprotein 41 mg/dL (5-40)
[2020-12-31 10:10] LABS: Eosinophil 2 % (0-5); Lymphocyte 30 % (19-41); Monocyte 7 % (0-10); Neutrophil-Segmented 61 % (47-70); Total Cells Counted 100 (MANUAL DIFF); Vitamin D,25 Hydroxy 82.8 ng/mL
[2020-12-31 10:11] LABS: Platelet Estimate ADEQUATE (ADEQ); Red Cell Morphology NORM C+C NORMAL (NORM C&C)
[2020-12-31 10:13] LABS: Absolute Lymphocyte Count 1.26 X10^3/uL (0.83-4.51); Absolute Neutrophil Count 2.6 X10^3/uL (2.0-7.7)
[2021-01-01 12:41] LABS: Pathologist Review Reviewed
[2021-01-02 03:07] LABS: Immunoglobulin A 157 mg/dL (61-437); Immunoglobulin G 383 mg/dL (603-1613); Immunoglobulin M 42 mg/dL (15-143)
[2021-01-02 09:39] LABS: Tacrolimus (FK506) 7.5 ng/mL (2.0-20.0); Transferrin 308 mg/dL (177-329)
[2021-01-07 08:56] LABS: Absolute Lymphocyte Count 1.01 X10^3/uL (0.83-4.51); Absolute Neutrophil Count 1.8 X10^3/uL (2.0-7.7); Basophil# 0.02 X10^3/uL; Basophil% 0.6 % (0-1); Eosinophil# 0.12 X10^3/uL; Eosinophils% 3.4 % (0-5); Hematocrit 38.1 % (40-54); Hemoglobin 12.3 g/dL (13.0-16.5); Lymphocyte # 1.01 X10^3/ul (0.83-4.51); Lymphocyte % 28.2 % (19-41); Mean Corp Hgb Conc 32.3 g/dL (32-36); Mean Corpuscular Hgb 32.1 pg (27.0-32.0); Mean Corpuscular Volume 99.5 fL (80-94); Mean Platelet Vol. 8.8 fl (6.2-12.0); Monocyte# 0.55 X10^3/uL; Monocyte% 15.4 % (0-10); NRBC Flagged by Analyzer 0 % (0-5); Neutrophil # 1.77 X10^3/uL (2.7-7.7); Neutrophil % 49.3 % (47-70); Platelet Count 145 K/mm3 (150-450); RBC Distribution Width CV 11.9 % (11.6-14.6); RBC Distribution Width SD 43.8 fl (35.1-43.9); Red Blood Count 3.83 M/mm3 (4.6-6.2); White Blood Count 3.6 K/mm3 (4.4-11.0)
[2021-01-07 09:10] LABS: Anion Gap 6 (5-15); BUN 24 mg/dL (7-18); BUN/Creat Ratio 19.5 RATIO (10-20); Calcium,Total 9.3 mg/dL (8.5-10.1); Chloride 110 mmol/L (98-107); Creatinine, Serum 1.23 mg/dL (0.70-1.30); EST Glomerular Filtration Rate 61 mL/min (>60); Est Glom Filt Rate - Afr Amer 74 mL/min (>60); Glucose 96 mg/dL (74-106); Potassium 4.4 mmol/L (3.5-5.1); Sodium Level 141 mmol/L (136-145)
[2021-01-07 16:52] LABS: Xtra Tube EP Lab EXTRA TUBE
[2021-01-09 13:09] LABS: Tacrolimus (FK506) 10.8 ng/mL (2.0-20.0)
== END 2021-01-08 23:59 ==
LOC: PAVLAB 08:40
PROVIDERS: PCP Family Medicine
DX: E78.5 Hyperlipidemia, unspecified (principal); E55.9 Vitamin D deficiency, unspecified; D64.9 Anemia, unspecified; R79.9 Abnormal finding of blood chemistry, unspecified; Z94.2 Lung transplant status; Z51.81 Encounter for therapeutic drug level monitoring
CPT/HCPCS: 36415; 80048; 80061; 80076; 80197; 82306; 82728; 82784; 82977; 83036; 83540; 83550; 83735; 84100; 84466; 85025

== ENCOUNTER 2021-02-04 09:04 | Outpatient (RCR) | payer OTHER, SELFPAY ==
[2021-01-09 00:22] VITALS: BMI 31.6
[2021-01-15 10:52] LABS: Hematocrit 40.2 % (40-54); Hemoglobin 12.6 g/dL (13.0-16.5); Mean Corp Hgb Conc 31.3 g/dL (32-36); Mean Corpuscular Hgb 31.6 pg (27.0-32.0); Mean Corpuscular Volume 100.8 fL (80-94); Mean Platelet Vol. 9.3 fl (6.2-12.0); POSITIVE COUNT YES; POSITIVE MORPHOLOGY YES; Platelet Count 177 K/mm3 (150-450); RBC Distribution Width SD 44.9 fl (35.1-43.9); Red Blood Count 3.99 M/mm3 (4.6-6.2); White Blood Count 4.7 K/mm3 (4.4-11.0)
[2021-01-15 10:54] LABS: Differential Indicated MANUAL DIFF
[2021-01-15 11:06] LABS: Anion Gap 2 (5-15); BUN 34 mg/dL (7-18); Chloride 114 mmol/L (98-107); Creatinine, Serum 1.57 mg/dL (0.70-1.30); EST Glomerular Filtration Rate 46 mL/min (>60); Est Glom Filt Rate - Afr Amer 56 mL/min (>60); Glucose 101 mg/dL (74-106); Potassium 5.2 mmol/L (3.5-5.1); Sodium Level 141 mmol/L (136-145)
[2021-01-15 11:20] LABS: Eosinophil 2 % (0-5); Lymphocyte 24 % (19-41); Metamyelocyte 1 % (0-1); Monocyte 3 % (0-10); Neutrophil-Band 5 % (0-5); Neutrophil-Segmented 65 % (47-70); Platelet Estimate ADEQUATE (ADEQ); Total Cells Counted 100 (MANUAL DIFF)
[2021-01-15 11:21] LABS: Absolute Lymphocyte Count 1.13 X10^3/uL (0.83-4.51); Absolute Neutrophil Count 3.3 X10^3/uL (2.0-7.7); Lymphocyte # 1.13 X10^3/ul (0.83-4.51); Pathologist Review May foll; Red Cell Morphology NORM C+C NORMAL (NORM C&C)
[2021-01-17 20:30] LABS: Tacrolimus (FK506) 3.5 ng/mL (2.0-20.0)
[2021-01-21 11:12] LABS: Hematocrit 38.7 % (40-54); Hemoglobin 12.6 g/dL (13.0-16.5); Mean Corp Hgb Conc 32.6 g/dL (32-36); Mean Corpuscular Hgb 32.4 pg (27.0-32.0); Mean Corpuscular Volume 99.5 fL (80-94); Mean Platelet Vol. 9.2 fl (6.2-12.0); POSITIVE COUNT YES; POSITIVE MORPHOLOGY YES; Platelet Count 149 K/mm3 (150-450); RBC Distribution Width CV 12.3 % (11.6-14.6); Red Blood Count 3.89 M/mm3 (4.6-6.2); White Blood Count 5.6 K/mm3 (4.4-11.0)
[2021-01-21 11:15] LABS: Differential Indicated MANUAL DIFF
[2021-01-21 11:30] LABS: AST(SGOT) 15 U/L (15-37); Alanine Aminotransfer ALT/SGPT 18 U/L (16-61); Albumin, Serum 3.6 g/dL (3.2-5.0); Alkaline Phosphatase 62 U/L (45-117); Anion Gap 8 (5-15); BUN 25 mg/dL (7-18); BUN/Creat Ratio 19.4 RATIO (10-20); Bilirubin, Direct 0.09 mg/dL (0.00-0.30); Calcium,Total 9.5 mg/dL (8.5-10.1); Chloride 109 mmol/L (98-107); Creatinine, Serum 1.29 mg/dL (0.70-1.30); EST Glomerular Filtration Rate 58 mL/min (>60); Est Glom Filt Rate - Afr Amer 70 mL/min (>60); GGTP 17 U/L (15-85); Globulin 3.3 g/dL (2.2-4.2); Glucose 97 mg/dL (74-106); Magnesium 1.9 mg/dL (1.6-2.6); Phosphorus 3.8 mg/dL (2.5-4.9); Potassium 4.9 mmol/L (3.5-5.1); Protein, Total 6.9 g/dL (6.4-8.2); Sodium Level 140 mmol/L (136-145)
[2021-01-21 12:03] LABS: Eosinophil 4 % (0-5); Lymphocyte 18 % (19-41); Monocyte 6 % (0-10); Neutrophil-Band 2 % (0-5); Neutrophil-Segmented 70 % (47-70); Platelet Estimate SLT DEC (ADEQ); Red Cell Morphology NORM C+C NORMAL (NORM C&C); Total Cells Counted 100 (MANUAL DIFF)
[2021-01-21 19:06] LABS: Xtra Tube EP Lab EXTRA TUBE
[2021-01-22 13:15] LABS: Pathologist Review Reviewed
[2021-01-23 14:43] LABS: Tacrolimus (FK506) 8.4 ng/mL (2.0-20.0)
[2021-01-28 11:01] LABS: Hematocrit 38.7 % (40-54); Hemoglobin 12.6 g/dL (13.0-16.5); Mean Corp Hgb Conc 32.6 g/dL (32-36); Mean Corpuscular Hgb 31.9 pg (27.0-32.0); Mean Platelet Vol. 9.2 fl (6.2-12.0); POSITIVE COUNT YES; POSITIVE MORPHOLOGY YES; Platelet Count 161 K/mm3 (150-450); RBC Distribution Width CV 12.7 % (11.6-14.6); RBC Distribution Width SD 45.1 fl (35.1-43.9); Red Blood Count 3.95 M/mm3 (4.6-6.2); White Blood Count 4.8 K/mm3 (4.4-11.0)
[2021-01-28 11:05] LABS: Differential Indicated MANUAL DIFF
[2021-01-28 11:14] LABS: Anion Gap 3 (5-15); BUN 31 mg/dL (7-18); BUN/Creat Ratio 20.7 RATIO (10-20); Calcium,Total 9.3 mg/dL (8.5-10.1); Chloride 112 mmol/L (98-107); EST Glomerular Filtration Rate 49 mL/min (>60); Est Glom Filt Rate - Afr Amer 59 mL/min (>60); Glucose 101 mg/dL (74-106); Magnesium 1.9 mg/dL (1.6-2.6); Potassium 4.8 mmol/L (3.5-5.1); Sodium Level 140 mmol/L (136-145)
[2021-01-28 11:28] LABS: Neutrophil-Band 1 % (0-5); Neutrophil-Segmented 67 % (47-70); Total Cells Counted 100 (MANUAL DIFF)
[2021-01-28 11:29] LABS: Eosinophil 1 % (0-5); Lymphocyte 23 % (19-41); Metamyelocyte 1 % (0-1); Monocyte 7 % (0-10); Platelet Estimate ADEQUATE (ADEQ); Red Cell Morphology NORM C+C NORMAL (NORM C&C)
[2021-01-28 11:32] LABS: Absolute Neutrophil Count 3.3 X10^3/uL (2.0-7.7)
[2021-01-28 15:54] LABS: Pathologist Review Reviewed
[2021-01-28 18:58] LABS: Xtra Tube EP Lab EXTRA TUBE
[2021-01-30 08:55] LABS: Tacrolimus (FK506) 9.9 ng/mL (2.0-20.0)
[2021-02-04 09:20] LABS: Hematocrit 38.2 % (40-54); Hemoglobin 12.3 g/dL (13.0-16.5); Mean Corp Hgb Conc 32.2 g/dL (32-36); Mean Corpuscular Hgb 32.2 pg (27.0-32.0); Mean Platelet Vol. 9.2 fl (6.2-12.0); POSITIVE COUNT YES; POSITIVE MORPHOLOGY YES; Platelet Count 167 K/mm3 (150-450); RBC Distribution Width SD 47.6 fl (35.1-43.9); Red Blood Count 3.82 M/mm3 (4.6-6.2); White Blood Count 5.2 K/mm3 (4.4-11.0)
[2021-02-04 09:21] LABS: Differential Indicated MANUAL DIFF
[2021-02-04 09:33] LABS: Anion Gap 5 (5-15); BUN 29 mg/dL (7-18); BUN/Creat Ratio 17.4 RATIO (10-20); Calcium,Total 9.2 mg/dL (8.5-10.1); Chloride 114 mmol/L (98-107); Creatinine, Serum 1.67 mg/dL (0.70-1.30); EST Glomerular Filtration Rate 43 mL/min (>60); Est Glom Filt Rate - Afr Amer 52 mL/min (>60); Glucose 99 mg/dL (74-106); Potassium 5.1 mmol/L (3.5-5.1); Sodium Level 144 mmol/L (136-145)
[2021-02-04 09:48] LABS: Eosinophil 1 % (0-5); Lymphocyte 22 % (19-41); Macrocytosis 1+; Metamyelocyte 4 % (0-1); Monocyte 4 % (0-10); Neutrophil-Band 1 % (0-5); Neutrophil-Segmented 68 % (47-70); Platelet Estimate ADEQUATE (ADEQ); Total Cells Counted 100 (MANUAL DIFF)
[2021-02-04 09:49] LABS: Absolute Lymphocyte Count 1.14 X10^3/uL (0.83-4.51); Absolute Neutrophil Count 3.6 X10^3/uL (2.0-7.7)
[2021-02-04 17:16] LABS: Xtra Tube EP Lab EXTRA TUBE
[2021-02-05 13:13] LABS: Pathologist Review Reviewed
[2021-02-06 10:24] LABS: Tacrolimus (FK506) 9.9 ng/mL (2.0-20.0)
== END 2021-02-07 23:59 ==
LOC: PAVLAB 09:04
PROVIDERS: PCP Family Medicine
DX: E78.5 Hyperlipidemia, unspecified (principal); E55.9 Vitamin D deficiency, unspecified; D64.9 Anemia, unspecified; R79.9 Abnormal finding of blood chemistry, unspecified; Z94.2 Lung transplant status; Z51.81 Encounter for therapeutic drug level monitoring
CPT/HCPCS: 36415; 80048; 80051; 80076; 80197; 82565; 82947; 82977; 83735; 84100; 84520; 84550; 85025

== ENCOUNTER 2021-02-26 12:56 | Day surgery (SDC) | payer MEDICARE, OTHER, SELFPAY ==
[2021-02-26 13:19] VITALS: BP 115/83; PULSE 90; RESP 16; TEMP 35.9; O2SAT 97; BMI 32.8
[2021-02-26] MEDS: Lactated Ringers 1,000 ML 100 ML IV (13:30)
--- NOTE | 2021-02-26 14:00 | COLBX_PTH ---
PATIENT: PEDRO ORTIZ LOC: EN U#:[id number] AGE/SX: 70/M ROOM: RE02/26/[address]: Dr. Ernesto Mixon DO : 1950 BED: DIS: 02/26/2021 SPEC #: [id number] RECD: 02/26/21 16:37 STATUS: KENYATTA LALITHA #: [id number] JULIO: 02/26/21 14:[address]: Ernesto Mxion DEPT: SURGICAL PATHOLOGY RECD BY: Tanya Hartmann ENTERED: 02/27/21 11:06 SP TYPE: COLON BX OTHR DR: Dr. Guerrero Bateman MD Tissues: Sigmoid colon biopsy Procedures: Surgery Specimen Level IV HEADER OPERATION: Colonoscopy ? open access (MAC) PRE-OP DIAGNOSIS: Screening TISSUE SUBMITTED: Biopsy of sigmoid polyp MICROSCOPIC DIAGNOSIS Sigmoid colon polyp, biopsy: Tubular adenoma. AM:kirk 02/28/2021 MICROSCOPIC DESCRIPTION Slides are reviewed. GROSS DESCRIPTION Received in fixative is one container labeled with the patient's name and designated sigmoid polyp. The specimen consists of two irregular fragments of light pop soft tissue that in aggregate measure 0.5 x 0.5 x 0.1 cm. The specimen is totally submitted in one cassette. / AM:kirk 02/27/21 TC:5 CPT: 87258
[2021-02-26 15:35] VITALS: BP 115/83; BP 99/72; PULSE 64; RESP 16; TEMP 36.1; O2SAT 99
--- NOTE | 2021-02-26 15:35 | OP.COLON_ITS ---
Patient Name: Rickie Lazaro Procedure Date: 02/26/2021 2:55 PM Date of : 1950 Age: 70 Procedure: Colonoscopy Indications: Screening for colorectal malignant neoplasm Providers: Ernesto Mixon DO Referring MD: Guerrero Bateman Medicines: Propofol per Anesthesia Patient Profile: This is a 70 year old male. Refer to note in patient chart for documentation of history and physical. Last Colonoscopy: 5 years ago. Complications: No immediate complications. Procedure: Pre-Anesthesia Assessment: - Prior to the procedure, a History and Physical was performed, and patient medications and allergies were reviewed. The patient is competent. The risks and benefits of the procedure and the sedation options and risks were discussed with the patient. All questions were answered and informed consent was obtained. Patient identification and proposed procedure were verified by the physician in the pre-procedure area. Mental Status Examination: alert and oriented. Airway Examination: normal oropharyngeal airway and neck mobility. Respiratory Examination: clear to auscultation. CV Examination: normal. Prophylactic Antibiotics: The patient does not require prophylactic antibiotics. Prior Anticoagulants: The patient has taken no previous anticoagulant or antiplatelet agents. ASA Grade Assessment: II - A patient with mild systemic disease. After reviewing the risks and benefits, the patient was deemed in satisfactory condition to undergo the procedure. The anesthesia plan was to use moderate sedation / analgesia (conscious sedation). Immediately prior to administration of medications, the patient was re-assessed for adequacy to receive sedatives. The heart rate, respiratory rate, oxygen saturations, blood pressure, adequacy of pulmonary ventilation, and response to care were monitored throughout the procedure. The physical status of the patient was re-assessed after the procedure. After I obtained informed consent, the scope was passed under direct vision. Throughout the procedure, the patient's blood pressure, pulse, and oxygen saturations were monitored continuously. The Colonoscope was introduced through the anus and advanced to the cecum, identified by appendiceal orifice and ileocecal valve. The colonoscopy was performed without difficulty. The patient tolerated the procedure well. The quality of the bowel preparation was good. Moderate Sedation: Moderate (conscious) sedation was administered by the endoscopy nurse and supervised by the endoscopist. The following parameters were monitored: oxygen saturation, heart rate, blood pressure, and response to care. Total physician intraservice time was 15 minutes. Scope In: 3:12:30 PM Scope Withdrawal Time 0 hours 12 minutes 25 seconds Scope Out: 3:29:50 PM Total Procedure Duration Time 0 hours 17 minutes 20 seconds Findings: The perianal and digital rectal examinations were normal. Multiple small and large-mouthed diverticula were found in the sigmoid colon, descending colon and splenic flexure. There was no evidence of diverticular bleeding. A 5 mm polyp was found in the sigmoid colon. The polyp was sessile. The polyp was removed with a jumbo cold forceps. Resection and retrieval were complete. Verification of patient identification for the specimen was done. Estimated blood loss was minimal. Non-bleeding internal hemorrhoids were found during retroflexion. The hemorrhoids were Grade II (internal hemorrhoids that prolapse but reduce spontaneously). The entire examined colon appeared normal on direct and retroflexion views. Impression: - Moderate diverticulosis in the sigmoid colon, in the descending colon and at the splenic flexure. There was no evidence of diverticular bleeding. - One 5 mm polyp in the sigmoid colon, removed with a jumbo cold forceps. Resected and retrieved. - Non-bleeding internal hemorrhoids. - The entire examined colon is normal on direct and retroflexion views. Recommendation: - Discharge patient to home. - Resume previous diet. - Continue present medications. - Await pathology results. - Repeat colonoscopy in 5 years for surveillance. Procedure Code(s): --- Professional --- 08219, Colonoscopy, flexible; with biopsy, single or multiple G0500, Moderate sedation services provided by the same physician or other qualified health direct care provider performing a gastrointestinal endoscopic service that sedation supports, requiring the presence of an independent trained observer to assist in the monitoring of the patient's level of consciousness and physiological status; initial 15 minutes of intra-service time; patient age 5 years or older (additional time may be reported with 43770, as appropriate) CPT copyright 2017 [employer]. All rights reserved. The codes documented in this report are preliminary and upon director of design review may be revised to meet current compliance requirements. Ernesto Mixon DO 02/26/2021 3:35:17 PM This report has been signed electronically. Number of Addenda: 1 Note Initiated On: 02/26/2021 2:55 PM Addendum Number: 1 Addendum Date: 01/09/2022 4:36:05 PM MAC was used instead of moderate sedation for this patient. Ernesto Mixon DO 01/09/2022 4:36:10 PM This report has been signed electronically.
--- NOTE | 2021-02-26 15:36 | OP.CCLET_ITS ---
01/09/2022 Guerrero Bateman Re : Colonoscopy procedure for Rickie Thakkarr Bhavana This procedure was performed on Friday, February 26, 2021. My impressions and recommendations are as follows: Impressions : - Moderate diverticulosis in the sigmoid colon, in the descending colon and at the splenic flexure. There was no evidence of diverticular bleeding. - One 5 mm polyp in the sigmoid colon, removed with a jumbo cold forceps. Resected and retrieved. - Non-bleeding internal hemorrhoids. - The entire examined colon is normal on direct and retroflexion views. Recommendations : - Discharge patient to home. - Resume previous diet. - Continue present medications. - Await pathology results. - Repeat colonoscopy in 5 years for surveillance. My findings are described in the full procedure note, which is enclosed. If I can be of further assistance, please feel free to contact me at . Sincerely, Ernesto Friend, 02/26/2021 3:35:17 PM This report has been signed electronically.
--- NOTE | 2021-02-26 15:37 | HP.PCM_ITS ---
History and Physical Date of Admission: 02/26/21 68-year-old gentleman with past medical history COPD status post lung transplant who presents for screening colonoscopy. He is not having shortness of breath. He is not have any chest pain. He did very well with his prep. He does have a history of diverticulosis without diverticulitis. He has no history of bleeding. He denies any constipation or diarrhea. Medications acetaminophen 650 mg PO PRN PRN 07/31/20 [History Confirmed 02/05/21] albuterol sulfate 2 puff INHALATION Q6H PRN PRN 07/31/20 [History Confirmed 02/05/21] aspirin 81 mg PO DAILY 07/31/20 [History Confirmed 02/05/21] budesonide 1 mg INHALATION Q12H PRN 07/31/20 [History Confirmed 02/05/21] ergocalciferol (vitamin D2) 50,000 unit PO Q7D 07/31/20 [History Confirmed 02/05/21] ferrous sulfate 325 mg PO LUNCH 07/31/20 [History Confirmed 02/05/21] fluticasone propionate 1 spray NASAL BID PRN 07/31/20 [History Confirmed 02/05/21] magnesium oxide 400 mg PO BID 07/31/20 [History Confirmed 02/05/21] mycophenolate mofetil 1,000 mg PO BID 07/31/20 [History Confirmed 02/05/21] pantoprazole 40 mg PO DAILY 07/31/20 [History Confirmed 02/05/21] tamsulosin 0.8 mg PO DAILY 07/31/20 [History Confirmed 02/05/21] valacyclovir 500 mg PO BID 07/31/20 [History Confirmed 02/05/21] azithromycin 250 mg tablet 250 mg PO QMWF tablet 08/07/20 [History Confirmed 02/05/21] prednisone 5 mg tablet 10 mg PO DAILY 08/07/20 [History Confirmed 02/05/21] calcium carbonate-vitamin D3 1 each PO DAILY 08/30/20 [History Confirmed ] sulfamethoxazole-trimethoprim 1 each PO MOWEFR 08/30/20 [History Confirmed 02/05/21] guaifenesin 600 mg tablet, extended release 12 hr 600 mg PO Q12H PRN 10/23/20 [History Confirmed 02/05/21] multivitamin 1 tab PO DAILY 10/23/20 [History Confirmed 02/05/21] tacrolimus 0.5 mg capsule,extended release 24 hr 0.5 mg PO BID cap 10/23/20 [History Confirmed 02/05/21] [facility] Medical History Acute exacerbation of chronic obstructive pulmonary disease Acute respiratory failure with hypoxia Adrenal insufficiency due to corticosteroid withdrawal Allergic asthma with acute exacerbation Asthma Atherosclerosis of coronary artery of [place] heart without angina pectoris Chest pain, unspecified Chronic hypoxemic respiratory failure Chronic hypoxemic respiratory failure COPD (chronic obstructive pulmonary disease) Nonrheumatic tricuspid (valve) insufficiency Obesity SCOTT (obstructive sleep apnea) Osteoporosis Osteoporosis of lumbar spine Oxygen desaturation PND (post-nasal drip) 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 hypertension Spinal stenosis Sprain and strain of lumbosacral joint/ligament Stage 4 very severe COPD by GOLD classification Tobacco dependence in remission Vitamin D deficiency Surgical History History of back surgery History of coronary artery stent placement (07/13/06) History of left heart catheterization (11/28/19) S/P left rotator cuff repair Family History Father Heart disease Social History Smoking Status: Former smoker quit date: 05/11/16 pack-years: 38 second hand exposure: No alcohol intake: current alcohol intake frequency: holidays/special occasions only Alcohol type: beer substance use type: does not use Review of Systems Resp Respiratory: Yes as per HPI Exam Const Constitutional: Positive conversant, cooperative, in no acute respiratory distress, well developed, well nourished, good hygiene and obese Head Head: Yes normocephalic and Yes atraumatic Eyes Eye: Positive clear conjunctiva; Negative nystagmus Ears Ear: Positive hearing normal and external ears normal; Negative hard of hearing Nose Nose: Yes other (Face mask in place) Neck Neck: Positive normal visual inspection, full ROM and trachea midline Chest Wall Chest: Positive normal inspection of the chest and symmetric chest movement Resp lung sounds: Positive normal expiratory time, normal respiratory effort and other (Lung sounds diminished right, lung sounds clear with good airflow left); Negative wheezes, rhonchi, rales or use of accessory muscles Cardio Cardiac: Positive regular rate, regular rhythm, S1 normal and S2 normal; Negative murmur, rub or gallop GI GI: Positive obese Genitourinary: Positive deferred Musc Musculoskeletal: Positive steady gait; Negative using an assistive device for ambulation, kyphosis or scoliosis Skin Pulmonary Skin Exam: Positive intact; Negative lesion, rash, ulcers or erythema Extremities Extremities: No clubbing and No cyanosis Neuro Neurologic: Yes no focal neuro deficits, Yes conversant, Yes cooperative, Yes normal cognition, Yes normal coordination, Yes normal concentration and Yes understands questions Psych Appearance: Positive grossly normal Mental Status: Positive mental status grossly normal Mood: Positive congruent mood Affect: Positive normal affect He will undergo screening colonoscopy. He was explained alternatives, risk, benefits include not withstanding bleeding, infection, sepsis, perforation, need for emergent or . He will have an ASA of 3.
[2021-02-26 15:40] VITALS: BP 111/72; BP 115/83; PULSE 64; RESP 16; O2SAT 100
[2021-02-26 15:45] VITALS: BP 105/56; BP 115/83; PULSE 63; RESP 16; O2SAT 100
[2021-02-26 15:50] VITALS: BP 115/83; BP 124/81; PULSE 60; RESP 16; TEMP 36; O2SAT 99
[2021-02-26 16:30] VITALS: BP 115/83
== END 2021-02-26 16:44 ==
LOC: EN 12:58 → AC 13:00
PROVIDERS: PCP Family Medicine; Referring Provider Family Medicine; Visit Provider Internal Medicine Gastroenterology
PROC: 0DJD8ZZ Inspection of Lower Intestinal Tract, Via Natural or Artificial Opening Endoscopic (ICD-10-PCS; CPT 45378; principal; 2021-02-26 13:55)
DX: Z12.11 Encounter for screening for malignant neoplasm of colon (principal); D12.5 Benign neoplasm of sigmoid colon; K57.30 Diverticulosis of large intestine without perforation or abscess without bleeding; K64.1 Second degree hemorrhoids; D64.9 Anemia, unspecified; K21.9 Gastro-esophageal reflux disease without esophagitis; J44.9 Chronic obstructive pulmonary disease, unspecified; I25.10 Atherosclerotic heart disease of native coronary artery without angina pectoris; G47.33 Obstructive sleep apnea (adult) (pediatric); M48.00 Spinal stenosis, site unspecified; E66.9 Obesity, unspecified; E55.9 Vitamin D deficiency, unspecified; J45.909 Unspecified asthma, uncomplicated; I27.20 Pulmonary hypertension, unspecified; M81.0 Age-related osteoporosis without current pathological fracture; Z95.5 Presence of coronary angioplasty implant and graft; Z68.32 Body mass index [BMI] 32.0-32.9, adult; Z94.2 Lung transplant status; Z87.891 Personal history of nicotine dependence; Z79.899 Other long term (current) drug therapy; Z79.82 Long term (current) use of aspirin; Z79.52 Long term (current) use of systemic steroids
CPT/HCPCS: 45380; 88305; J7120; J2405

== ENCOUNTER 2021-03-04 09:42 | Outpatient (RCR) | payer OTHER, SELFPAY ==
[2021-02-08 00:17] VITALS: BMI 31.6
[2021-02-11 10:50] LABS: Hematocrit 38.6 % (40-54); Hemoglobin 12.5 g/dL (13.0-16.5); Mean Corp Hgb Conc 32.4 g/dL (32-36); Mean Corpuscular Hgb 31.6 pg (27.0-32.0); Mean Corpuscular Volume 97.7 fL (80-94); Mean Platelet Vol. 9.4 fl (6.2-12.0); POSITIVE COUNT YES; POSITIVE MORPHOLOGY YES; Platelet Count 173 K/mm3 (150-450); RBC Distribution Width CV 12.9 % (11.6-14.6); Red Blood Count 3.95 M/mm3 (4.6-6.2)
[2021-02-11 10:51] LABS: Differential Indicated MANUAL DIFF
[2021-02-11 11:04] LABS: Anion Gap 7 (5-15); BUN 27 mg/dL (7-18); Calcium,Total 9.6 mg/dL (8.5-10.1); Chloride 111 mmol/L (98-107); Creatinine, Serum 1.35 mg/dL (0.70-1.30); EST Glomerular Filtration Rate 55 mL/min (>60); Est Glom Filt Rate - Afr Amer 67 mL/min (>60); Glucose 104 mg/dL (74-106); Magnesium 1.8 mg/dL (1.6-2.6); Potassium 4.6 mmol/L (3.5-5.1); Sodium Level 141 mmol/L (136-145)
[2021-02-11 11:11] LABS: Vitamin B12 444 pg/mL (211-911)
[2021-02-11 11:19] LABS: Eosinophil 3 % (0-5); Lymphocyte 23 % (19-41); Metamyelocyte 1 % (0-1); Monocyte 5 % (0-10); Neutrophil-Band 3 % (0-5); Neutrophil-Segmented 65 % (47-70); Platelet Estimate ADEQUATE (ADEQ); Total Cells Counted 100 (MANUAL DIFF)
[2021-02-11 11:20] LABS: Absolute Neutrophil Count 4.8 X10^3/uL (2.0-7.7); Red Cell Morphology NORM C+C NORMAL (NORM C&C)
[2021-02-11 11:21] LABS: Absolute Lymphocyte Count 1.61 X10^3/uL (0.83-4.51); Lymphocyte # 1.61 X10^3/ul (0.83-4.51)
[2021-02-12 12:00] LABS: Pathologist Review Reviewed
[2021-02-14 11:14] LABS: Tacrolimus (FK506) 5.3 ng/mL (2.0-20.0)
[2021-02-18 09:16] LABS: Hematocrit 38.1 % (40-54); Hemoglobin 12.2 g/dL (13.0-16.5); Mean Corpuscular Hgb 31.9 pg (27.0-32.0); Mean Corpuscular Volume 99.7 fL (80-94); Mean Platelet Vol. 9.1 fl (6.2-12.0); POSITIVE COUNT YES; POSITIVE MORPHOLOGY YES; Platelet Count 185 K/mm3 (150-450); RBC Distribution Width CV 13.2 % (11.6-14.6); RBC Distribution Width SD 47.7 fl (35.1-43.9); Red Blood Count 3.82 M/mm3 (4.6-6.2); White Blood Count 7.8 K/mm3 (4.4-11.0)
[2021-02-18 09:20] LABS: Differential Indicated MANUAL DIFF
[2021-02-18 09:34] LABS: Hemoglobin A1c 5.3 % (3.8-5.6)
[2021-02-18 09:49] LABS: Lymphocyte 17 % (19-41); Monocyte 6 % (0-10); Neutrophil-Band 4 % (0-5); Neutrophil-Segmented 73 % (47-70); Total Cells Counted 100 (MANUAL DIFF)
[2021-02-18 09:50] LABS: Platelet Estimate ADEQUATE (ADEQ); Red Cell Morphology NORM C+C NORMAL (NORM C&C)
[2021-02-18 10:53] LABS: AST(SGOT) 12 U/L (15-37); Alanine Aminotransfer ALT/SGPT 16 U/L (16-61); Albumin, Serum 3.6 g/dL (3.2-5.0); Alkaline Phosphatase 63 U/L (45-117); Anion Gap 9 (5-15); BUN 35 mg/dL (7-18); BUN/Creat Ratio 20.3 RATIO (10-20); Bilirubin, Direct 0.06 mg/dL (0.00-0.30); Calcium,Total 9.3 mg/dL (8.5-10.1); Chloride 112 mmol/L (98-107); Cholesterol 238 mg/dL (200); Creatinine, Serum 1.72 mg/dL (0.70-1.30); EST Glomerular Filtration Rate 42 mL/min (>60); Est Glom Filt Rate - Afr Amer 50 mL/min (>60); Ferritin 73 ng/mL (26-388); GGTP 15 U/L (15-85); Globulin 3.3 g/dL (2.2-4.2); Glucose 102 mg/dL (74-106); High Density Lipoprotein 40 mg/dL; Iron 88 ug/dL (65-175); Iron Binding Capacity,Total 347 ug/dL (250-450); Magnesium 2.1 mg/dL (1.6-2.6); Phosphorus 3.9 mg/dL (2.5-4.9); Potassium 4.9 mmol/L (3.5-5.1); Protein, Total 6.9 g/dL (6.4-8.2); Sodium Level 142 mmol/L (136-145); Triglycerides 341 mg/dL; Uric Acid 6.9 mg/dL (3.5-7.2); Very Low Density Lipoprotein 68 mg/dL (5-40)
[2021-02-20 16:10] LABS: Immunoglobulin A 168 mg/dL (61-437); Immunoglobulin G 579 mg/dL (603-1613); Immunoglobulin M 53 mg/dL (15-143)
[2021-02-20 19:02] LABS: Tacrolimus (FK506) 9.1 ng/mL (2.0-20.0)
[2021-02-20 19:03] LABS: Transferrin 275 mg/dL (177-329)
[2021-02-25 09:44] LABS: Hematocrit 38.6 % (40-54); Hemoglobin 12.5 g/dL (13.0-16.5); Mean Corp Hgb Conc 32.4 g/dL (32-36); Mean Corpuscular Hgb 32.3 pg (27.0-32.0); Mean Corpuscular Volume 99.7 fL (80-94); Mean Platelet Vol. 9.3 fl (6.2-12.0); POSITIVE COUNT YES; POSITIVE MORPHOLOGY YES; Platelet Count 178 K/mm3 (150-450); RBC Distribution Width CV 13.5 % (11.6-14.6); RBC Distribution Width SD 49.4 fl (35.1-43.9); Red Blood Count 3.87 M/mm3 (4.6-6.2); White Blood Count 7.4 K/mm3 (4.4-11.0)
[2021-02-25 09:46] LABS: Differential Indicated MANUAL DIFF
[2021-02-25 10:10] LABS: Eosinophil 1 % (0-5); Lymphocyte 24 % (19-41); Monocyte 1 % (0-10); Neutrophil-Band 3 % (0-5); Neutrophil-Segmented 71 % (47-70); Total Cells Counted 100 (MANUAL DIFF)
[2021-02-25 10:11] LABS: Platelet Estimate ADEQUATE (ADEQ); Red Cell Morphology NORM C+C NORMAL (NORM C&C)
[2021-02-25 10:13] LABS: Absolute Lymphocyte Count 1.78 X10^3/uL (0.83-4.51); Absolute Neutrophil Count 5.5 X10^3/uL (2.0-7.7)
[2021-02-25 10:19] LABS: Anion Gap 8 (5-15); BUN 32 mg/dL (7-18); BUN/Creat Ratio 19.8 RATIO (10-20); Chloride 112 mmol/L (98-107); Creatinine, Serum 1.62 mg/dL (0.70-1.30); EST Glomerular Filtration Rate 45 mL/min (>60); Est Glom Filt Rate - Afr Amer 54 mL/min (>60); Glucose 98 mg/dL (74-106); Sodium Level 143 mmol/L (136-145)
[2021-02-26 09:56] LABS: Pathologist Review Reviewed
[2021-02-28 15:20] LABS: Tacrolimus (FK506) 9.8 ng/mL (2.0-20.0)
[2021-03-04 09:58] LABS: Hematocrit 36.7 % (40-54); Hemoglobin 12.2 g/dL (13.0-16.5); Mean Corp Hgb Conc 33.2 g/dL (32-36); Mean Corpuscular Hgb 32.4 pg (27.0-32.0); Mean Corpuscular Volume 97.6 fL (80-94); Mean Platelet Vol. 9.3 fl (6.2-12.0); POSITIVE COUNT YES; POSITIVE MORPHOLOGY YES; Platelet Count 158 K/mm3 (150-450); RBC Distribution Width CV 13.6 % (11.6-14.6); Red Blood Count 3.76 M/mm3 (4.6-6.2); White Blood Count 6.8 K/mm3 (4.4-11.0)
[2021-03-04 10:00] LABS: Differential Indicated MANUAL DIFF
[2021-03-04 10:10] LABS: Anion Gap 8 (5-15); BUN 29 mg/dL (7-18); BUN/Creat Ratio 17.9 RATIO (10-20); Chloride 114 mmol/L (98-107); Creatinine, Serum 1.62 mg/dL (0.70-1.30); EST Glomerular Filtration Rate 45 mL/min (>60); Est Glom Filt Rate - Afr Amer 54 mL/min (>60); Glucose 108 mg/dL (74-106); Magnesium 2.1 mg/dL (1.6-2.6); Potassium 4.8 mmol/L (3.5-5.1); Sodium Level 143 mmol/L (136-145)
[2021-03-04 10:19] LABS: Eosinophil 1 % (0-5); Lymphocyte 22 % (19-41); Metamyelocyte 2 % (0-1); Monocyte 6 % (0-10); Neutrophil-Segmented 69 % (47-70); Total Cells Counted 100 (MANUAL DIFF)
[2021-03-04 10:20] LABS: Absolute Lymphocyte Count 1.49 X10^3/uL (0.83-4.51); Absolute Neutrophil Count 4.7 X10^3/uL (2.0-7.7); Platelet Estimate ADEQUATE (ADEQ); Red Cell Morphology NORM C+C NORMAL (NORM C&C)
[2021-03-04 17:55] LABS: Xtra Tube EP Lab EXTRA TUBE
[2021-03-05 13:35] LABS: Pathologist Review Reviewed
[2021-03-07 11:47] LABS: Tacrolimus (FK506) 10.2 ng/mL (2.0-20.0)
== END 2021-03-10 23:59 ==
LOC: PAVLAB 09:42
PROVIDERS: Family Medicine; PCP Family Medicine
DX: Z48.24 Encounter for aftercare following lung transplant (principal); Z51.81 Encounter for therapeutic drug level monitoring; E78.5 Hyperlipidemia, unspecified; E55.9 Vitamin D deficiency, unspecified; D64.9 Anemia, unspecified; R79.9 Abnormal finding of blood chemistry, unspecified; Z94.2 Lung transplant status
CPT/HCPCS: 36415; 80048; 80061; 80076; 80197; 82306; 82607; 82728; 82746; 82784; 82977; 83036; 83540; 83550; 83735; 84100; 84466; 84550; 85025

== ENCOUNTER 2021-04-08 09:44 | Outpatient (RCR) | payer MEDICARE, OTHER, SELFPAY ==
[2021-03-11 00:13] VITALS: BMI 31.6
[2021-03-11 11:45] LABS: Anion Gap 5 (5-15); BUN 33 mg/dL (7-18); BUN/Creat Ratio 20.1 RATIO (10-20); Calcium,Total 9.2 mg/dL (8.5-10.1); Chloride 115 mmol/L (98-107); Creatinine, Serum 1.64 mg/dL (0.70-1.30); EST Glomerular Filtration Rate 44 mL/min (>60); Est Glom Filt Rate - Afr Amer 53 mL/min (>60); Glucose 101 mg/dL (74-106); Magnesium 1.9 mg/dL (1.6-2.6); Potassium 4.6 mmol/L (3.5-5.1); Sodium Level 143 mmol/L (136-145)
[2021-03-11 12:16] LABS: Eosinophil 3 % (0-5); Lymphocyte 24 % (19-41); Monocyte 4 % (0-10); Neutrophil-Band 7 % (0-5); Neutrophil-Segmented 62 % (47-70); Total Cells Counted 100 (MANUAL DIFF)
[2021-03-11 12:17] LABS: Platelet Estimate ADEQUATE (ADEQ); Red Cell Morphology NORM C+C NORMAL (NORM C&C); White Blood Count 7.8 K/mm3 (4.4-11.0)
[2021-03-11 12:18] LABS: Hematocrit 35.8 % (40-54); Hemoglobin 12.2 g/dL (13.0-16.5); Mean Corp Hgb Conc 34.1 g/dL (32-36); Mean Corpuscular Hgb 32.4 pg (27.0-32.0); Mean Corpuscular Volume 95.2 fL (80-94); Mean Platelet Vol. 8.9 fl (6.2-12.0); Platelet Count 162 K/mm3 (150-450); RBC Distribution Width CV 13.9 % (11.6-14.6); RBC Distribution Width SD 48.3 fl (35.1-43.9); Red Blood Count 3.76 M/mm3 (4.6-6.2)
[2021-03-11 12:19] LABS: Differential Indicated MANUAL DIFF
[2021-03-11 12:20] LABS: Absolute Lymphocyte Count 1.87 X10^3/uL (0.83-4.51); Absolute Neutrophil Count 5.4 X10^3/uL (2.0-7.7)
[2021-03-11 19:30] LABS: Xtra Tube EP Lab EXTRA TUBE
[2021-03-12 14:02] LABS: Pathologist Review Reviewed
[2021-03-18 11:36] LABS: Hematocrit 37.6 % (40-54); Hemoglobin 12.1 g/dL (13.0-16.5); Mean Corp Hgb Conc 32.2 g/dL (32-36); Mean Corpuscular Volume 96.4 fL (80-94); Mean Platelet Vol. 9.2 fl (6.2-12.0); POSITIVE COUNT YES; POSITIVE MORPHOLOGY YES; Platelet Count 181 K/mm3 (150-450); RBC Distribution Width CV 14.1 % (11.6-14.6); RBC Distribution Width SD 49.2 fl (35.1-43.9); White Blood Count 7.6 K/mm3 (4.4-11.0)
[2021-03-18 11:42] LABS: Differential Indicated MANUAL DIFF
[2021-03-18 11:58] LABS: AST(SGOT) 12 U/L (15-37); Alanine Aminotransfer ALT/SGPT 14 U/L (16-61); Albumin, Serum 3.7 g/dL (3.2-5.0); Alkaline Phosphatase 62 U/L (45-117); Anion Gap 4 (5-15); BUN 31 mg/dL (7-18); BUN/Creat Ratio 19.5 RATIO (10-20); Bilirubin, Direct 0.06 mg/dL (0.00-0.30); Calcium,Total 9.6 mg/dL (8.5-10.1); Chloride 113 mmol/L (98-107); Creatinine, Serum 1.59 mg/dL (0.70-1.30); EST Glomerular Filtration Rate 46 mL/min (>60); Est Glom Filt Rate - Afr Amer 55 mL/min (>60); GGTP 11 U/L (15-85); Globulin 3.1 g/dL (2.2-4.2); Glucose 97 mg/dL (74-106); Magnesium 1.9 mg/dL (1.6-2.6); Phosphorus 3.3 mg/dL (2.5-4.9); Potassium 4.6 mmol/L (3.5-5.1); Protein, Total 6.8 g/dL (6.4-8.2); Sodium Level 140 mmol/L (136-145); Uric Acid 6.5 mg/dL (3.5-7.2)
[2021-03-18 12:13] LABS: Lymphocyte 6 % (19-41); Metamyelocyte 2 % (0-1); Monocyte 2 % (0-10); Neutrophil-Band 6 % (0-5); Neutrophil-Segmented 84 % (47-70); Platelet Estimate ADEQUATE (ADEQ); Total Cells Counted 100 (MANUAL DIFF)
[2021-03-18 12:14] LABS: Red Cell Morphology NORM C+C NORMAL (NORM C&C)
[2021-03-18 12:18] LABS: Absolute Lymphocyte Count 0.46 X10^3/uL (0.83-4.51); Absolute Neutrophil Count 6.8 X10^3/uL (2.0-7.7)
[2021-03-18 19:33] LABS: Xtra Tube EP Lab EXTRA TUBE
[2021-03-19 14:51] LABS: Pathologist Review Reviewed
[2021-03-21 14:51] LABS: Tacrolimus (FK506) 8.2 ng/mL (2.0-20.0)
[2021-03-25 10:19] LABS: Hematocrit 37.6 % (40-54); Mean Corp Hgb Conc 31.9 g/dL (32-36); Mean Corpuscular Hgb 31.4 pg (27.0-32.0); Mean Corpuscular Volume 98.4 fL (80-94); Mean Platelet Vol. 9.2 fl (6.2-12.0); POSITIVE COUNT YES; POSITIVE MORPHOLOGY YES; Platelet Count 181 K/mm3 (150-450); RBC Distribution Width CV 14.2 % (11.6-14.6); RBC Distribution Width SD 50.7 fl (35.1-43.9); Red Blood Count 3.82 M/mm3 (4.6-6.2); White Blood Count 7.6 K/mm3 (4.4-11.0)
[2021-03-25 10:21] LABS: Differential Indicated MANUAL DIFF
[2021-03-25 10:34] LABS: Anion Gap 5 (5-15); BUN 37 mg/dL (7-18); BUN/Creat Ratio 20.1 RATIO (10-20); Calcium,Total 9.4 mg/dL (8.5-10.1); Chloride 113 mmol/L (98-107); Creatinine, Serum 1.84 mg/dL (0.70-1.30); EST Glomerular Filtration Rate 39 mL/min (>60); Est Glom Filt Rate - Afr Amer 47 mL/min (>60); Glucose 103 mg/dL (74-106); Magnesium 1.9 mg/dL (1.6-2.6); Potassium 5.1 mmol/L (3.5-5.1); Sodium Level 141 mmol/L (136-145)
[2021-03-25 10:43] LABS: Lymphocyte 14 % (19-41); Metamyelocyte 2 % (0-1); Monocyte 6 % (0-10); Neutrophil-Segmented 78 % (47-70); Total Cells Counted 100 (MANUAL DIFF)
[2021-03-25 10:44] LABS: Absolute Neutrophil Count 5.9 X10^3/uL (2.0-7.7); Platelet Estimate ADEQUATE (ADEQ); Red Cell Morphology NORM C+C NORMAL (NORM C&C)
[2021-03-25 18:13] LABS: Xtra Tube EP Lab EXTRA TUBE
[2021-03-26 12:21] LABS: Pathologist Review Reviewed
[2021-03-28 14:05] LABS: Tacrolimus (FK506) 9.4 ng/mL (2.0-20.0)
[2021-04-08 10:04] LABS: Hematocrit 35.9 % (40-54); Hemoglobin 11.7 g/dL (13.0-16.5); Mean Corp Hgb Conc 32.6 g/dL (32-36); Mean Corpuscular Hgb 32.3 pg (27.0-32.0); Mean Corpuscular Volume 99.2 fL (80-94); Mean Platelet Vol. 9.3 fl (6.2-12.0); POSITIVE COUNT YES; POSITIVE MORPHOLOGY YES; Platelet Count 167 K/mm3 (150-450); RBC Distribution Width CV 14.5 % (11.6-14.6); RBC Distribution Width SD 52.9 fl (35.1-43.9); Red Blood Count 3.62 M/mm3 (4.6-6.2); White Blood Count 9.1 K/mm3 (4.4-11.0)
[2021-04-08 10:08] LABS: Differential Indicated MANUAL DIFF
[2021-04-08 10:16] LABS: Anion Gap 8 (5-15); BUN 32 mg/dL (7-18); BUN/Creat Ratio 20.6 RATIO (10-20); Calcium,Total 8.8 mg/dL (8.5-10.1); Chloride 112 mmol/L (98-107); Creatinine, Serum 1.55 mg/dL (0.70-1.30); EST Glomerular Filtration Rate 47 mL/min (>60); Est Glom Filt Rate - Afr Amer 57 mL/min (>60); Glucose 102 mg/dL (74-106); Magnesium 1.9 mg/dL (1.6-2.6); Potassium 4.7 mmol/L (3.5-5.1); Sodium Level 141 mmol/L (136-145)
[2021-04-08 10:35] LABS: Basophil 1 % (0-1); Eosinophil 3 % (0-5); Lymphocyte 15 % (19-41); Metamyelocyte 1 % (0-1); Monocyte 6 % (0-10); Myelocyte 2 % (0-0); Neutrophil-Segmented 72 % (47-70); Total Cells Counted 100 (MANUAL DIFF)
[2021-04-08 10:36] LABS: Platelet Estimate ADEQUATE (ADEQ); Red Cell Morphology NORM C+C NORMAL (NORM C&C)
[2021-04-08 10:37] LABS: Absolute Neutrophil Count 6.6 X10^3/uL (2.0-7.7)
[2021-04-08 18:01] LABS: Xtra Tube EP Lab EXTRA TUBE
[2021-04-09 13:08] LABS: Pathologist Review Reviewed
[2021-04-10 13:02] LABS: Tacrolimus (FK506) 9.9 ng/mL (2.0-20.0)
== END 2021-04-09 23:59 ==
LOC: PAVLAB 09:44
PROVIDERS: PCP Family Medicine
DX: Z48.24 Encounter for aftercare following lung transplant (principal); Z51.81 Encounter for therapeutic drug level monitoring; E78.5 Hyperlipidemia, unspecified; E55.9 Vitamin D deficiency, unspecified; D64.9 Anemia, unspecified; R79.9 Abnormal finding of blood chemistry, unspecified; Z94.2 Lung transplant status
CPT/HCPCS: 36415; 80048; 80076; 80197; 82977; 83735; 84100; 84550; 85025

== ENCOUNTER → 2021-04-16 12:55 | Outpatient (CLI) | payer MEDICARE, OTHER, SELFPAY ==
--- NOTE | 2021-04-16 13:02 | BD_ITS ---
STUDY: DUAL ENERGY X-RAY ABSORPTIOMETRY / DXA REASON FOR EXAM: Male, 70 years old. 733.00OsteoporosisBONE DENSITY REASON FOR EXAM TECHNIQUE: Bone Mineral Density (BMD) measurements of lumbar spine and bilateral hips were obtained. COMPARISON: Comparison is made with prior examination dated 04/12/2019. FINDINGS: Lumbar Spine (L1-L4): g/cm2 (0.892) / T-score (-2.0) / Z-score (-1.0) Findings are suggestive of osteopenia with a moderate fracture risk. Left Femur Total: g/cm2 (0.935) / T-score (-0.7) / Z-score (0.1) Left Femoral Neck: g/cm2 (0.715) / T-score (-1.6) / Z-score (-0.3) Right Femur Total: g/cm2 (0.980) / T-score (-0.4) / Z-score (0.4) Right Femoral Neck: g/cm2 (0.711) / T-score (-1.6) / Z-score (0.3) The T-Scores on the most recent prior examination were: Lumbar Spine (L1-L4): There has been worsening of bone density since the previous examination. Left Femur Total: which represents an improvement of 3.7%. Right Femur Total: which represents an improvement of 3.6%. BD/Dexa Bone Density Study IMPRESSION: The patient is considered osteopenic as outlined below according to World Luk[employer] Organization (WHO) criteria with a moderate fracture risk. There has been improvement of bone density since the previous examination. Reference Information: The T-score is the number of standard deviations above or below the standard which is normal for young adults at their peak bone mineral density. The World Health Organization (WHO) interprets the T-scores as follows: Above -1 Normal bone density Between -1 and -2.5 Osteopenia Equal to / or below -2.5 Osteoporosis As a practical clinical guideline, osteopenia may be graded as follows: Mild -1 through -1.5 Moderate -1.6 through -2.0 Severe -2.1 through -2.4 The Z-score is the number of standard deviations above or below age-matched controls. A Z-score of less than -1.5 would be considered abnormal. References: 1. NIH Osteoporosis and Related Bone Diseases www osteo.org 2. International Society for Clinical Densitometry www iscd.org 3. National Osteoporosis Foundation www nof.org Electronically Signed: Brad Yi MD at 14:40 EST , Service support ,
== END ==
PROVIDERS: PCP Family Medicine; Visit Provider Family Medicine
DX: M81.0 Age-related osteoporosis without current pathological fracture (principal)
CPT/HCPCS: 77080

== ENCOUNTER → 2021-04-25 13:54 | Outpatient (CLI) | payer MEDICARE, OTHER, SELFPAY ==
[2021-04-25 14:11] VITALS: BP 128/70; PULSE 80; RESP 16; TEMP 36.1; O2SAT 98
[2021-04-25] MEDS: DENOSUMAB 60 MG/ML SC (14:14)
== END ==
PROVIDERS: PCP Family Medicine; Referring Provider Internal Medicine Endocrinology, Diabetes & Metabolism; Visit Provider Internal Medicine Endocrinology, Diabetes & Metabolism
DX: M81.8 Other osteoporosis without current pathological fracture (principal)
CPT/HCPCS: 96372; J0897

== ENCOUNTER 2021-05-06 10:47 | Outpatient (RCR) | payer MEDICARE, OTHER, SELFPAY ==
[2021-04-10 00:19] VITALS: BMI 31.6
[2021-04-15 10:21] LABS: Hematocrit 34.5 % (40-54); Hemoglobin 11.2 g/dL (13.0-16.5); Mean Corp Hgb Conc 32.5 g/dL (32-36); Mean Corpuscular Hgb 32.6 pg (27.0-32.0); Mean Corpuscular Volume 100.3 fL (80-94); Mean Platelet Vol. 9.2 fl (6.2-12.0); POSITIVE COUNT YES; POSITIVE MORPHOLOGY YES; Platelet Count 172 K/mm3 (150-450); RBC Distribution Width CV 14.9 % (11.6-14.6); RBC Distribution Width SD 54.9 fl (35.1-43.9); Red Blood Count 3.44 M/mm3 (4.6-6.2); White Blood Count 7.9 K/mm3 (4.4-11.0)
[2021-04-15 10:24] LABS: Differential Indicated MANUAL DIFF
[2021-04-15 10:38] LABS: AST(SGOT) 9 U/L (15-37); Alanine Aminotransfer ALT/SGPT 14 U/L (16-61); Albumin, Serum 3.5 g/dL (3.2-5.0); Alkaline Phosphatase 66 U/L (45-117); Anion Gap 4 (5-15); BUN 41 mg/dL (7-18); BUN/Creat Ratio 18.4 RATIO (10-20); Bilirubin, Direct 0.07 mg/dL (0.00-0.30); Calcium,Total 9.3 mg/dL (8.5-10.1); Chloride 118 mmol/L (98-107); Creatinine, Serum 2.23 mg/dL (0.70-1.30); EST Glomerular Filtration Rate 31 mL/min (>60); Est Glom Filt Rate - Afr Amer 37 mL/min (>60); GGTP 14 U/L (15-85); Globulin 2.9 g/dL (2.2-4.2); Glucose 102 mg/dL (74-106); Phosphorus 3.5 mg/dL (2.5-4.9); Potassium 5.5 mmol/L (3.5-5.1); Protein, Total 6.4 g/dL (6.4-8.2); Sodium Level 145 mmol/L (136-145); Uric Acid 6.9 mg/dL (3.5-7.2)
[2021-04-15 10:48] LABS: Eosinophil 1 % (0-5); Lymphocyte 19 % (19-41); Metamyelocyte 1 % (0-1); Monocyte 2 % (0-10); Neutrophil-Band 6 % (0-5); Neutrophil-Segmented 71 % (47-70); Total Cells Counted 100 (MANUAL DIFF)
[2021-04-15 10:49] LABS: Absolute Neutrophil Count 6.1 X10^3/uL (2.0-7.7); Neutrophil # 6.11 X10^3/uL (2.7-7.7); Platelet Estimate ADEQUATE (ADEQ); Red Cell Morphology NORM C+C NORMAL (NORM C&C)
[2021-04-15 18:16] LABS: Xtra Tube EP Lab EXTRA TUBE
[2021-04-16 09:46] LABS: Pathologist Review Reviewed
[2021-04-19 16:14] LABS: Tacrolimus (FK506) 8.9 ng/mL (2.0-20.0)
[2021-04-22 09:24] LABS: Hematocrit 34.7 % (40-54); Hemoglobin 11.6 g/dL (13.0-16.5); Mean Corp Hgb Conc 33.4 g/dL (32-36); Mean Corpuscular Volume 98.6 fL (80-94); Mean Platelet Vol. 9.2 fl (6.2-12.0); POSITIVE COUNT YES; POSITIVE MORPHOLOGY YES; Platelet Count 173 K/mm3 (150-450); RBC Distribution Width CV 14.4 % (11.6-14.6); RBC Distribution Width SD 52.2 fl (35.1-43.9); Red Blood Count 3.52 M/mm3 (4.6-6.2); White Blood Count 8.3 K/mm3 (4.4-11.0)
[2021-04-22 09:28] LABS: Differential Indicated MANUAL DIFF
[2021-04-22 09:35] LABS: Anion Gap 7 (5-15); BUN 32 mg/dL (7-18); Chloride 112 mmol/L (98-107); EST Glomerular Filtration Rate 45 mL/min (>60); Est Glom Filt Rate - Afr Amer 55 mL/min (>60); Glucose 101 mg/dL (74-106); Potassium 4.7 mmol/L (3.5-5.1); Sodium Level 140 mmol/L (136-145)
[2021-04-22 09:47] LABS: Eosinophil 1 % (0-5); Lymphocyte 20 % (19-41); Metamyelocyte 1 % (0-1); Monocyte 5 % (0-10); Neutrophil-Band 4 % (0-5); Neutrophil-Segmented 69 % (47-70); Total Cells Counted 100 (MANUAL DIFF)
[2021-04-22 09:49] LABS: Absolute Lymphocyte Count 1.66 X10^3/uL (0.83-4.51); Absolute Neutrophil Count 6.1 X10^3/uL (2.0-7.7); Lymphocyte # 1.66 X10^3/ul (0.83-4.51); Neutrophil # 6.08 X10^3/uL (2.7-7.7); Platelet Estimate ADEQUATE (ADEQ); Red Cell Morphology NORM C+C NORMAL (NORM C&C)
[2021-04-22 17:19] LABS: Xtra Tube EP Lab EXTRA TUBE
[2021-04-23 09:24] LABS: Pathologist Review Reviewed
[2021-04-24 14:02] LABS: Tacrolimus (FK506) 9.2 ng/mL (2.0-20.0)
[2021-04-29 10:22] LABS: Hematocrit 37.2 % (40-54); Hemoglobin 11.7 g/dL (13.0-16.5); Mean Corp Hgb Conc 31.5 g/dL (32-36); Mean Corpuscular Hgb 31.9 pg (27.0-32.0); Mean Corpuscular Volume 101.4 fL (80-94); Mean Platelet Vol. 9.1 fl (6.2-12.0); POSITIVE COUNT YES; POSITIVE MORPHOLOGY YES; Platelet Count 161 K/mm3 (150-450); RBC Distribution Width CV 14.4 % (11.6-14.6); RBC Distribution Width SD 53.7 fl (35.1-43.9); Red Blood Count 3.67 M/mm3 (4.6-6.2); White Blood Count 9.2 K/mm3 (4.4-11.0)
[2021-04-29 10:23] LABS: Differential Indicated MANUAL DIFF
[2021-04-29 10:41] LABS: Anion Gap 5 (5-15); BUN 38 mg/dL (7-18); BUN/Creat Ratio 25.3 RATIO (10-20); Calcium,Total 9.1 mg/dL (8.5-10.1); Chloride 113 mmol/L (98-107); EST Glomerular Filtration Rate 49 mL/min (>60); Est Glom Filt Rate - Afr Amer 59 mL/min (>60); Glucose 106 mg/dL (74-106); Magnesium 2.1 mg/dL (1.6-2.6); Potassium 4.7 mmol/L (3.5-5.1); Sodium Level 142 mmol/L (136-145)
[2021-04-29 11:02] LABS: Basophil 1 % (0-1); Eosinophil 4 % (0-5); Lymphocyte 14 % (19-41); Metamyelocyte 5 % (0-1); Monocyte 6 % (0-10); Neutrophil-Band 2 % (0-5); Neutrophil-Segmented 68 % (47-70); Platelet Estimate ADEQUATE (ADEQ); Red Cell Morphology NORM C+C NORMAL (NORM C&C); Total Cells Counted 100 (MANUAL DIFF)
[2021-04-29 11:03] LABS: Absolute Neutrophil Count 6.4 X10^3/uL (2.0-7.7)
[2021-05-01 09:39] LABS: Pathologist Review Reviewed
[2021-05-03 09:46] LABS: Tacrolimus (FK506) 6.5 ng/mL (2.0-20.0)
[2021-05-06 11:23] LABS: Hematocrit 36.2 % (40-54); Hemoglobin 12.1 g/dL (13.0-16.5); Mean Corp Hgb Conc 33.4 g/dL (32-36); Mean Corpuscular Volume 98.6 fL (80-94); Mean Platelet Vol. 9.5 fl (6.2-12.0); POSITIVE COUNT YES; POSITIVE MORPHOLOGY YES; Platelet Count 167 K/mm3 (150-450); RBC Distribution Width CV 14.3 % (11.6-14.6); RBC Distribution Width SD 51.4 fl (35.1-43.9); Red Blood Count 3.67 M/mm3 (4.6-6.2); White Blood Count 8.9 K/mm3 (4.4-11.0)
[2021-05-06 11:30] LABS: Anion Gap 6 (5-15); BUN 23 mg/dL (7-18); BUN/Creat Ratio 16.4 RATIO (10-20); Calcium,Total 8.8 mg/dL (8.5-10.1); Chloride 110 mmol/L (98-107); EST Glomerular Filtration Rate 53 mL/min (>60); Est Glom Filt Rate - Afr Amer 64 mL/min (>60); Glucose 107 mg/dL (74-106); Magnesium 2.1 mg/dL (1.6-2.6); Potassium 4.6 mmol/L (3.5-5.1); Sodium Level 141 mmol/L (136-145)
[2021-05-06 11:38] LABS: Differential Indicated MANUAL DIFF
[2021-05-06 12:16] LABS: Anisocytosis 1+; Lymphocyte 11 % (19-41); Monocyte 6 % (0-10); Neutrophil-Band 11 % (0-5); Neutrophil-Segmented 72 % (47-70); Platelet Estimate ADEQUATE (ADEQ); Red Cell Morphology N CHROM NORMAL (NORM C&C); Total Cells Counted 100 (MANUAL DIFF)
[2021-05-06 12:17] LABS: Absolute Lymphocyte Count 0.98 X10^3/uL (0.83-4.51); Absolute Neutrophil Count 7.4 X10^3/uL (2.0-7.7)
[2021-05-08 10:04] LABS: Pathologist Review Reviewed
[2021-05-09 14:32] LABS: Tacrolimus (FK506) 7.6 ng/mL (2.0-20.0)
== END 2021-05-10 23:59 ==
LOC: PAVLAB 10:47
PROVIDERS: PCP Family Medicine
DX: Z48.24 Encounter for aftercare following lung transplant (principal); Z51.81 Encounter for therapeutic drug level monitoring; E78.5 Hyperlipidemia, unspecified; E55.9 Vitamin D deficiency, unspecified; D64.9 Anemia, unspecified; R79.9 Abnormal finding of blood chemistry, unspecified; Z94.2 Lung transplant status
CPT/HCPCS: 36415; 80048; 80076; 80197; 82977; 83735; 84100; 84550; 85025

== ENCOUNTER 2021-06-10 08:48 | Outpatient (RCR) | payer MEDICARE, OTHER, SELFPAY ==
[2021-05-11 00:18] VITALS: BMI 31.6
[2021-05-13 10:01] LABS: Hematocrit 35.6 % (40-54); Hemoglobin 11.5 g/dL (13.0-16.5); Mean Corp Hgb Conc 32.3 g/dL (32-36); Mean Platelet Vol. 9.1 fl (6.2-12.0); POSITIVE COUNT YES; POSITIVE MORPHOLOGY YES; Platelet Count 181 K/mm3 (150-450); RBC Distribution Width CV 13.8 % (11.6-14.6); RBC Distribution Width SD 51.7 fl (35.1-43.9); Red Blood Count 3.49 M/mm3 (4.6-6.2); White Blood Count 8.5 K/mm3 (4.4-11.0)
[2021-05-13 10:03] LABS: Differential Indicated MANUAL DIFF
[2021-05-13 10:31] LABS: Lymphocyte 15 % (19-41); Metamyelocyte 1 % (0-1); Monocyte 2 % (0-10); Neutrophil-Band 6 % (0-5); Neutrophil-Segmented 76 % (47-70); Total Cells Counted 100 (MANUAL DIFF)
[2021-05-13 10:32] LABS: Platelet Estimate ADEQUATE (ADEQ); Red Cell Morphology NORM C+C NORMAL (NORM C&C)
[2021-05-13 10:33] LABS: Absolute Lymphocyte Count 1.27 X10^3/uL (0.83-4.51); Lymphocyte # 1.27 X10^3/ul (0.83-4.51); Neutrophil # 6.97 X10^3/uL (2.7-7.7)
[2021-05-13 10:38] LABS: AST(SGOT) 12 U/L (15-37); Alanine Aminotransfer ALT/SGPT 18 U/L (16-61); Albumin, Serum 3.5 g/dL (3.2-5.0); Alkaline Phosphatase 74 U/L (45-117); Anion Gap 5 (5-15); BUN 31 mg/dL (7-18); Bilirubin, Direct < 0.05 mg/dL (0.00-0.30); Chloride 112 mmol/L (98-107); Creatinine, Serum 1.63 mg/dL (0.70-1.30); EST Glomerular Filtration Rate 44 mL/min (>60); Est Glom Filt Rate - Afr Amer 54 mL/min (>60); GGTP 15 U/L (15-85); Globulin 3.1 g/dL (2.2-4.2); Glucose 101 mg/dL (74-106); Magnesium 2.4 mg/dL (1.6-2.6); Potassium 4.6 mmol/L (3.5-5.1); Protein, Total 6.6 g/dL (6.4-8.2); Sodium Level 141 mmol/L (136-145); Uric Acid 6.7 mg/dL (3.5-7.2)
[2021-05-13 13:52] LABS: Pathologist Review Reviewed
[2021-05-20 12:03] LABS: Basophil# 0.02 X10^3/uL; Eosinophil# 0.06 X10^3/uL; Hematocrit 36.1 % (40-54); Hemoglobin 12.1 g/dL (13.0-16.5); Mean Corp Hgb Conc 33.5 g/dL (32-36); Mean Corpuscular Hgb 33.7 pg (27.0-32.0); Mean Corpuscular Volume 100.6 fL (80-94); Mean Platelet Vol. 9.4 fl (6.2-12.0); Monocyte# 0.54 X10^3/uL; NRBC Flagged by Analyzer 0 % (0-5); POSITIVE COUNT YES; POSITIVE MORPHOLOGY YES; Platelet Count 197 K/mm3 (150-450); RBC Distribution Width CV 13.2 % (11.6-14.6); RBC Distribution Width SD 49.1 fl (35.1-43.9); Red Blood Count 3.59 M/mm3 (4.6-6.2); White Blood Count 10.6 K/mm3 (4.4-11.0)
[2021-05-20 12:12] LABS: Differential Indicated SCAN CRITERIA MET
[2021-05-20 12:15] LABS: Anion Gap 5 (5-15); BUN 29 mg/dL (7-18); BUN/Creat Ratio 21.3 RATIO (10-20); Calcium,Total 9.3 mg/dL (8.5-10.1); Chloride 111 mmol/L (98-107); Creatinine, Serum 1.36 mg/dL (0.70-1.30); EST Glomerular Filtration Rate 55 mL/min (>60); Est Glom Filt Rate - Afr Amer 66 mL/min (>60); Glucose 111 mg/dL (74-106); Magnesium 2.2 mg/dL (1.6-2.6); Potassium 5.3 mmol/L (3.5-5.1); Sodium Level 138 mmol/L (136-145)
[2021-05-20 12:56] LABS: Lymphocyte 7 % (19-41); Metamyelocyte 3 % (0-1); Monocyte 4 % (0-10); Neutrophil-Band 9 % (0-5); Neutrophil-Segmented 77 % (47-70); Total Cells Counted 100 (MANUAL DIFF)
[2021-05-20 12:57] LABS: Platelet Estimate ADEQUATE (ADEQ); Red Cell Morphology NORM C+C NORMAL (NORM C&C)
[2021-05-20 12:58] LABS: Scan Smear per Review Criteria MANUAL DIFF
[2021-05-20 13:00] LABS: Absolute Lymphocyte Count 0.63 X10^3/uL (0.83-4.51); Absolute Neutrophil Count 9.1 X10^3/uL (2.0-7.7); Lymphocyte # 0.63 X10^3/ul (0.83-4.51); Neutrophil # 9.12 X10^3/uL (2.7-7.7)
[2021-05-22 09:53] LABS: Pathologist Review Reviewed
[2021-05-28 10:19] LABS: Anion Gap 5 (5-15); BUN 37 mg/dL (7-18); Chloride 111 mmol/L (98-107); Creatinine, Serum 2.09 mg/dL (0.70-1.30); EST Glomerular Filtration Rate 33 mL/min (>60); Est Glom Filt Rate - Afr Amer 40 mL/min (>60); Glucose 98 mg/dL (74-106); Sodium Level 140 mmol/L (136-145)
[2021-05-30 13:38] LABS: Hematocrit 38.4 % (40-54); Hemoglobin 12.2 g/dL (13.0-16.5); Mean Corp Hgb Conc 31.8 g/dL (32-36); Mean Corpuscular Hgb 32.9 pg (27.0-32.0); Mean Corpuscular Volume 103.5 fL (80-94); Mean Platelet Vol. 9.3 fl (6.2-12.0); POSITIVE COUNT YES; POSITIVE MORPHOLOGY YES; Platelet Count 171 K/mm3 (150-450); RBC Distribution Width SD 49.3 fl (35.1-43.9); Red Blood Count 3.71 M/mm3 (4.6-6.2); White Blood Count 8.8 K/mm3 (4.4-11.0)
[2021-05-30 13:47] LABS: Magnesium 2.3 mg/dL (1.6-2.6); Potassium 5.7 mmol/L (3.5-5.1)
[2021-05-30 13:59] LABS: Differential Indicated MANUAL DIFF
[2021-05-30 14:08] LABS: Lymphocyte 8 % (19-41); Metamyelocyte 1 % (0-1); Monocyte 8 % (0-10); Myelocyte 1 % (0-0); Neutrophil-Band 5 % (0-5); Neutrophil-Segmented 77 % (47-70); Total Cells Counted 100 (MANUAL DIFF)
[2021-05-30 14:10] LABS: Absolute Neutrophil Count 7.2 X10^3/uL (2.0-7.7)
[2021-05-30 14:11] LABS: Platelet Estimate ADEQUATE (ADEQ); Red Cell Morphology NORM C+C NORMAL (NORM C&C)
[2021-05-30 15:03] LABS: Calcium,Total 9.7 mg/dL (8.5-10.1)
[2021-05-30 19:14] LABS: Tacrolimus (FK506) 9.5 ng/mL (2.0-20.0)
[2021-06-03 09:27] LABS: Pathologist Review Reviewed
[2021-06-03 11:44] LABS: Hematocrit 37.1 % (40-54); Hemoglobin 12.3 g/dL (13.0-16.5); Mean Corp Hgb Conc 33.2 g/dL (32-36); Mean Corpuscular Hgb 33.9 pg (27.0-32.0); Mean Corpuscular Volume 102.2 fL (80-94); Mean Platelet Vol. 9.1 fl (6.2-12.0); POSITIVE COUNT YES; POSITIVE MORPHOLOGY YES; Platelet Count 160 K/mm3 (150-450); RBC Distribution Width CV 13.2 % (11.6-14.6); RBC Distribution Width SD 48.8 fl (35.1-43.9); Red Blood Count 3.63 M/mm3 (4.6-6.2); White Blood Count 7.5 K/mm3 (4.4-11.0)
[2021-06-03 11:45] LABS: Differential Indicated MANUAL DIFF
[2021-06-03 11:52] LABS: Anion Gap 5 (5-15); BUN 28 mg/dL (7-18); BUN/Creat Ratio 19.4 RATIO (10-20); Calcium,Total 8.9 mg/dL (8.5-10.1); Chloride 112 mmol/L (98-107); Creatinine, Serum 1.44 mg/dL (0.70-1.30); EST Glomerular Filtration Rate 51 mL/min (>60); Est Glom Filt Rate - Afr Amer 62 mL/min (>60); Glucose 106 mg/dL (74-106); Magnesium 2.3 mg/dL (1.6-2.6); Potassium 4.5 mmol/L (3.5-5.1); Sodium Level 142 mmol/L (136-145)
[2021-06-03 12:24] LABS: Basophil 1 % (0-1); Eosinophil 2 % (0-5); Lymphocyte 13 % (19-41); Metamyelocyte 3 % (0-1); Monocyte 8 % (0-10); Myelocyte 1 % (0-0); Neutrophil-Segmented 72 % (47-70); Platelet Estimate ADEQUATE (ADEQ); Red Cell Morphology NORM C+C NORMAL (NORM C&C); Total Cells Counted 100 (MANUAL DIFF)
[2021-06-03 12:25] LABS: Absolute Lymphocyte Count 0.98 X10^3/uL (0.83-4.51); Absolute Neutrophil Count 5.4 X10^3/uL (2.0-7.7); Lymphocyte # 0.98 X10^3/ul (0.83-4.51)
[2021-06-05 09:08] LABS: Pathologist Review Reviewed
[2021-06-06 21:47] LABS: Tacrolimus (FK506) 7.9 ng/mL (2.0-20.0)
[2021-06-10 09:07] LABS: Hematocrit 37.2 % (40-54); Hemoglobin 12.3 g/dL (13.0-16.5); Mean Corp Hgb Conc 33.1 g/dL (32-36); Mean Corpuscular Hgb 33.2 pg (27.0-32.0); Mean Corpuscular Volume 100.3 fL (80-94); Mean Platelet Vol. 9.2 fl (6.2-12.0); POSITIVE COUNT YES; POSITIVE MORPHOLOGY YES; Platelet Count 145 K/mm3 (150-450); RBC Distribution Width CV 12.7 % (11.6-14.6); RBC Distribution Width SD 46.7 fl (35.1-43.9); Red Blood Count 3.71 M/mm3 (4.6-6.2); White Blood Count 8.6 K/mm3 (4.4-11.0)
[2021-06-10 09:08] LABS: Differential Indicated MANUAL DIFF
[2021-06-10 09:30] LABS: AST(SGOT) 13 U/L (15-37); Alanine Aminotransfer ALT/SGPT 17 U/L (16-61); Albumin, Serum 3.9 g/dL (3.2-5.0); Alkaline Phosphatase 52 U/L (45-117); Anion Gap 6 (5-15); BUN 29 mg/dL (7-18); BUN/Creat Ratio 17.9 RATIO (10-20); Bilirubin, Direct 0.12 mg/dL (0.00-0.30); Calcium,Total 9.3 mg/dL (8.5-10.1); Chloride 112 mmol/L (98-107); Creatinine, Serum 1.62 mg/dL (0.70-1.30); EST Glomerular Filtration Rate 45 mL/min (>60); Est Glom Filt Rate - Afr Amer 54 mL/min (>60); GGTP 19 U/L (15-85); Glucose 112 mg/dL (74-106); Magnesium 1.9 mg/dL (1.6-2.6); Phosphorus 3.5 mg/dL (2.5-4.9); Potassium 4.6 mmol/L (3.5-5.1); Protein, Total 6.9 g/dL (6.4-8.2); Sodium Level 140 mmol/L (136-145); Uric Acid 5.6 mg/dL (3.5-7.2)
[2021-06-10 10:20] LABS: Lymphocyte 9 % (19-41); Metamyelocyte 3 % (0-1); Monocyte 4 % (0-10); Myelocyte 9 % (0-0); Neutrophil-Band 1 % (0-5); Neutrophil-Segmented 74 % (47-70); Total Cells Counted 100 (MANUAL DIFF)
[2021-06-10 10:22] LABS: Macrocytosis 1+
[2021-06-10 10:49] LABS: Absolute Neutrophil Count 6.5 X10^3/uL (2.0-7.7)
[2021-06-12 09:41] LABS: Pathologist Review Reviewed
[2021-06-13 15:53] LABS: Tacrolimus (FK506) 9.3 ng/mL (2.0-20.0)
== END 2021-06-10 23:59 ==
LOC: PAVLAB 08:48
PROVIDERS: PCP Family Medicine
DX: Z48.24 Encounter for aftercare following lung transplant (principal); Z51.81 Encounter for therapeutic drug level monitoring; E78.5 Hyperlipidemia, unspecified; E55.9 Vitamin D deficiency, unspecified; R79.9 Abnormal finding of blood chemistry, unspecified; Z94.2 Lung transplant status; D64.9 Anemia, unspecified
CPT/HCPCS: 36415; 80048; 80051; 80076; 80197; 82310; 82565; 82947; 82977; 83735; 84100; 84132; 84520; 84550; 85025

== ENCOUNTER 2021-06-17 08:01 | Outpatient (RCR) | payer MEDICARE, OTHER, SELFPAY ==
[2021-06-11 00:22] VITALS: BMI 31.6
[2021-06-17 08:40] LABS: Hematocrit 35.7 % (40-54); Mean Corp Hgb Conc 33.6 g/dL (32-36); Mean Corpuscular Hgb 34.5 pg (27.0-32.0); Mean Corpuscular Volume 102.6 fL (80-94); Mean Platelet Vol. 9.4 fl (6.2-12.0); POSITIVE COUNT YES; POSITIVE MORPHOLOGY YES; Platelet Count 149 K/mm3 (150-450); RBC Distribution Width CV 13.2 % (11.6-14.6); Red Blood Count 3.48 M/mm3 (4.6-6.2); White Blood Count 7.4 K/mm3 (4.4-11.0)
[2021-06-17 08:43] LABS: Differential Indicated MANUAL DIFF
[2021-06-17 09:00] LABS: Hemoglobin A1c 5.3 % (3.8-5.6)
[2021-06-17 09:10] LABS: Eosinophil 1 % (0-5); Lymphocyte 15 % (19-41); Macrocytosis 1+; Metamyelocyte 6 % (0-1); Monocyte 6 % (0-10); Myelocyte 1 % (0-0); Neutrophil-Segmented 71 % (47-70); Total Cells Counted 100 (MANUAL DIFF)
[2021-06-17 09:12] LABS: ALB/GLOB Ratio 1.2 RATIO (0.9-2.4); AST(SGOT) 13 U/L (15-37); Alanine Aminotransfer ALT/SGPT 16 U/L (16-61); Albumin, Serum 3.6 g/dL (3.2-5.0); Alkaline Phosphatase 64 U/L (45-117); Anion Gap 4 (5-15); BUN 22 mg/dL (7-18); BUN/Creat Ratio 16.5 RATIO (10-20); Chloride 113 mmol/L (98-107); Cholesterol 203 mg/dL (200); Creatinine, Serum 1.33 mg/dL (0.70-1.30); EST Glomerular Filtration Rate 56 mL/min (>60); Est Glom Filt Rate - Afr Amer 68 mL/min (>60); Ferritin 43 ng/mL (26-388); GGTP 13 U/L (15-85); Globulin 2.9 g/dL (2.2-4.2); Glucose 114 mg/dL (74-106); High Density Lipoprotein 46 mg/dL; Iron 53 ug/dL (65-175); Iron Binding Capacity,Total 346 ug/dL (250-450); Potassium 4.5 mmol/L (3.5-5.1); Protein, Total 6.5 g/dL (6.4-8.2); Sodium Level 140 mmol/L (136-145); Triglycerides 165 mg/dL; Uric Acid 5.8 mg/dL (3.5-7.2); Very Low Density Lipoprotein 33 mg/dL (5-40)
[2021-06-17 09:14] LABS: Absolute Neutrophil Count 5.3 X10^3/uL (2.0-7.7)
[2021-06-18 12:36] LABS: Pathologist Review Reviewed
[2021-06-19 18:17] LABS: Vitamin D 1,25-Dihydroxy 36.6 pg/mL (19.9-79.3)
[2021-06-20 13:08] LABS: Immunoglobulin A 160 mg/dL (61-437); Immunoglobulin G 433 mg/dL (603-1613); Immunoglobulin M 40 mg/dL (15-143)
[2021-06-20 16:58] LABS: Tacrolimus (FK506) 7.8 ng/mL (2.0-20.0); Transferrin 276 mg/dL (177-329)
== END 2021-07-08 23:59 ==
LOC: PAVLAB 08:01
PROVIDERS: PCP Family Medicine
DX: Z48.24 Encounter for aftercare following lung transplant (principal); Z51.81 Encounter for therapeutic drug level monitoring; E78.5 Hyperlipidemia, unspecified; E55.9 Vitamin D deficiency, unspecified; R79.9 Abnormal finding of blood chemistry, unspecified; Z94.2 Lung transplant status; D84.9 Immunodeficiency, unspecified
CPT/HCPCS: 36415; 80053; 80061; 80197; 82248; 82652; 82728; 82784; 82977; 83036; 83540; 83550; 83735; 84466; 84550; 85025

== ENCOUNTER 2021-07-15 08:00 | Outpatient (RCR) | payer MEDICARE, OTHER, SELFPAY ==
[2021-07-09 00:23] VITALS: BMI 31.6
[2021-07-15 08:19] LABS: Hematocrit 38.6 % (40-54); Hemoglobin 12.6 g/dL (13.0-16.5); Mean Corp Hgb Conc 32.6 g/dL (32-36); Mean Corpuscular Hgb 33.9 pg (27.0-32.0); Mean Corpuscular Volume 103.8 fL (80-94); Mean Platelet Vol. 9.4 fl (6.2-12.0); POSITIVE COUNT YES; POSITIVE MORPHOLOGY YES; Platelet Count 167 K/mm3 (150-450); RBC Distribution Width CV 12.6 % (11.6-14.6); Red Blood Count 3.72 M/mm3 (4.6-6.2); White Blood Count 7.1 K/mm3 (4.4-11.0)
[2021-07-15 08:21] LABS: Differential Indicated MANUAL DIFF
[2021-07-15 08:36] LABS: ALB/GLOB Ratio 1.3 RATIO (0.9-2.4); AST(SGOT) 16 U/L (15-37); Alanine Aminotransfer ALT/SGPT 19 U/L (16-61); Albumin, Serum 3.7 g/dL (3.2-5.0); Alkaline Phosphatase 72 U/L (45-117); Anion Gap 3 (5-15); BUN 21 mg/dL (7-18); BUN/Creat Ratio 16.7 RATIO (10-20); Calcium,Total 9.4 mg/dL (8.5-10.1); Chloride 111 mmol/L (98-107); Creatinine, Serum 1.26 mg/dL (0.70-1.30); EST Glomerular Filtration Rate 60 mL/min (>60); Est Glom Filt Rate - Afr Amer 72 mL/min (>60); GGTP 17 U/L (15-85); Globulin 2.8 g/dL (2.2-4.2); Glucose 114 mg/dL (74-106); Magnesium 2.1 mg/dL (1.6-2.6); Phosphorus 2.9 mg/dL (2.5-4.9); Potassium 4.5 mmol/L (3.5-5.1); Protein, Total 6.5 g/dL (6.4-8.2); Sodium Level 139 mmol/L (136-145)
[2021-07-15 09:25] LABS: Basophil 1 % (0-1); Lymphocyte 10 % (19-41); Metamyelocyte 6 % (0-1); Monocyte 4 % (0-10); Myelocyte 1 % (0-0); Neutrophil-Band 18 % (0-5); Neutrophil-Segmented 60 % (47-70); Total Cells Counted 100 (MANUAL DIFF)
[2021-07-15 09:26] LABS: Platelet Estimate ADEQUATE (ADEQ); Red Cell Morphology NORM C+C NORMAL (NORM C&C)
[2021-07-15 09:27] LABS: Absolute Neutrophil Count 5.5 X10^3/uL (2.0-7.7); Neutrophil # 5.51 X10^3/uL (2.7-7.7)
[2021-07-15 09:28] LABS: Absolute Lymphocyte Count 0.71 X10^3/uL (0.83-4.51); Lymphocyte # 0.71 X10^3/ul (0.83-4.51)
[2021-07-16 10:33] LABS: Pathologist Review Reviewed
[2021-07-17 18:30] LABS: Tacrolimus (FK506) 8.1 ng/mL (2.0-20.0)
== END 2021-08-08 23:59 ==
LOC: PAVLAB 08:00
PROVIDERS: PCP Family Medicine
DX: Z48.24 Encounter for aftercare following lung transplant (principal); Z51.81 Encounter for therapeutic drug level monitoring; E78.5 Hyperlipidemia, unspecified; E55.9 Vitamin D deficiency, unspecified; R79.9 Abnormal finding of blood chemistry, unspecified; Z94.2 Lung transplant status; D84.9 Immunodeficiency, unspecified
CPT/HCPCS: 36415; 80053; 80197; 82977; 83735; 84100; 85025

== ENCOUNTER 2021-08-12 09:41 | Outpatient (RCR) | payer MEDICARE, OTHER, SELFPAY ==
[2021-08-09 00:25] VITALS: BMI 31.6
[2021-08-12 10:17] LABS: Hemoglobin 12.3 g/dL (13.0-16.5); Mean Corp Hgb Conc 31.5 g/dL (32-36); Mean Corpuscular Hgb 31.8 pg (27.0-32.0); Mean Corpuscular Volume 100.8 fL (80-94); Mean Platelet Vol. 9.7 fl (6.2-12.0); POSITIVE COUNT YES; POSITIVE MORPHOLOGY YES; Platelet Count 162 K/mm3 (150-450); RBC Distribution Width SD 44.6 fl (35.1-43.9); Red Blood Count 3.87 M/mm3 (4.6-6.2); White Blood Count 10.2 K/mm3 (4.4-11.0)
[2021-08-12 10:36] LABS: ALB/GLOB Ratio 1.2 RATIO (0.9-2.4); AST(SGOT) 10 U/L (15-37); Alanine Aminotransfer ALT/SGPT 14 U/L (16-61); Albumin, Serum 3.7 g/dL (3.2-5.0); Alkaline Phosphatase 56 U/L (45-117); Anion Gap 7 (5-15); BUN 26 mg/dL (7-18); BUN/Creat Ratio 19.3 RATIO (10-20); Chloride 111 mmol/L (98-107); Creatinine, Serum 1.35 mg/dL (0.70-1.30); EST Glomerular Filtration Rate 55 mL/min (>60); Est Glom Filt Rate - Afr Amer 67 mL/min (>60); Ferritin 65 ng/mL (26-388); GGTP 18 U/L (15-85); Glucose 108 mg/dL (74-106); Iron 51 ug/dL (65-175); Iron Binding Capacity,Total 354 ug/dL (250-450); Magnesium 1.8 mg/dL (1.6-2.6); PERCENT IRON SATURATION 14.4 % (15.0-55.0); Phosphorus 2.6 mg/dL (2.5-4.9); Potassium 4.6 mmol/L (3.5-5.1); Protein, Total 6.7 g/dL (6.4-8.2); Sodium Level 142 mmol/L (136-145); Uric Acid 6.5 mg/dL (3.5-7.2)
[2021-08-12 10:58] LABS: Differential Indicated MANUAL DIFF
[2021-08-12 10:59] LABS: Scan Smear per Review Criteria MANUAL DIFF
[2021-08-12 11:09] LABS: Eosinophil 1 % (0-5); Hemoglobin A1c 5.5 % (3.8-5.6); Lymphocyte 5 % (19-41); Metamyelocyte 5 % (0-1); Monocyte 3 % (0-10); Myelocyte 2 % (0-0); Neutrophil-Band 4 % (0-5); Neutrophil-Segmented 79 % (47-70); Platelet Estimate ADEQUATE (ADEQ); Promyelocyte 1 % (0-0); Red Cell Morphology NORM C+C NORMAL (NORM C&C); Total Cells Counted 100 (MANUAL DIFF)
[2021-08-12 11:11] LABS: Absolute Lymphocyte Count 0.51 X10^3/uL (0.83-4.51); Absolute Neutrophil Count 8.5 X10^3/uL (2.0-7.7); Lymphocyte # 0.51 X10^3/ul (0.83-4.51)
[2021-08-12 12:04] LABS: Cholesterol 226 mg/dL (200); High Density Lipoprotein 49 mg/dL; Triglycerides 150 mg/dL; Very Low Density Lipoprotein 30 mg/dL (5-40)
[2021-08-12 12:36] LABS: Pathologist Review Reviewed
[2021-08-12 12:37] LABS: Vitamin D,25 Hydroxy 46.7 ng/mL
[2021-08-14 20:07] LABS: Immunoglobulin A 163 mg/dL (61-437); Immunoglobulin G 413 mg/dL (603-1613); Immunoglobulin M 40 mg/dL (15-143)
[2021-08-14 20:39] LABS: Tacrolimus (FK506) 7.8 ng/mL (2.0-20.0); Transferrin 275 mg/dL (177-329)
== END 2021-09-07 23:59 ==
LOC: PAVLAB 09:41
PROVIDERS: PCP Family Medicine
DX: Z48.24 Encounter for aftercare following lung transplant (principal); Z51.81 Encounter for therapeutic drug level monitoring; E78.5 Hyperlipidemia, unspecified; E55.9 Vitamin D deficiency, unspecified; D84.9 Immunodeficiency, unspecified; R79.9 Abnormal finding of blood chemistry, unspecified; Z94.2 Lung transplant status
CPT/HCPCS: 36415; 80053; 80061; 80197; 82306; 82728; 82784; 82977; 83036; 83540; 83550; 83735; 84100; 84466; 84550; 85025

== ENCOUNTER → 2021-08-21 09:30 | Outpatient (CLI) | payer MEDICARE, OTHER, SELFPAY ==
--- NOTE | 2021-08-21 13:52 | SPIR ---
Spirometry PFT Testing Spirometry PFT Testing: COMPLETE PULMONARY FUNCTION TEST INTERPRETATION Brief HPI: Patient is a 71 year old male, currently under the care of myself, who presents to [facility] for complete pulmonary function tests secondary to diagnosis of S/P transplant. Respiratory therapist reports good effort and reproducible results. Interpretation: Forced expiration spirometry shows a mild large airways obstructive ventilatory defect with an FEV1 of 81% predicted. There was no bronchodilator response tested. Spirograms are of good quality and plateau slowly, indicating slowly emptying areas of the lungs. The respiratory flow volume loop shows decreased expiratory flow rates at all lung volumes consistent with airway obstruction. Compared to previous pulmonary function tests from 12/16/18, there is been significant improvement by over 145% in FEV1. Impression: Mild obstructive ventilatory defect with significant improvement compared to previous.
== END ==
PROVIDERS: PCP Family Medicine
DX: Z94.2 Lung transplant status (principal); Z48.24 Encounter for aftercare following lung transplant
CPT/HCPCS: 94010

== ENCOUNTER 2021-10-08 10:39 | Outpatient (RCR) | payer MEDICARE, SELFPAY ==
[2021-09-08 00:24] VITALS: BMI 31.6
[2021-09-09 09:47] LABS: Hemoglobin 11.9 g/dL (13.0-16.5); Mean Corp Hgb Conc 31.3 g/dL (32-36); Mean Corpuscular Hgb 30.8 pg (27.0-32.0); Mean Corpuscular Volume 98.4 fL (80-94); POSITIVE COUNT YES; POSITIVE MORPHOLOGY YES; Platelet Count 155 K/mm3 (150-450); RBC Distribution Width CV 12.4 % (11.6-14.6); Red Blood Count 3.86 M/mm3 (4.6-6.2); White Blood Count 7.6 K/mm3 (4.4-11.0)
[2021-09-09 09:48] LABS: Differential Indicated MANUAL DIFF
[2021-09-09 10:06] LABS: ALB/GLOB Ratio 1.4 RATIO (0.9-2.4); AST(SGOT) 12 U/L (15-37); Alanine Aminotransfer ALT/SGPT 22 U/L (16-61); Albumin, Serum 3.8 g/dL (3.2-5.0); Alkaline Phosphatase 62 U/L (45-117); Anion Gap 6 (5-15); BUN 26 mg/dL (7-18); BUN/Creat Ratio 17.8 RATIO (10-20); Bilirubin, Direct 0.07 mg/dL (0.00-0.30); Calcium,Total 8.7 mg/dL (8.5-10.1); Chloride 108 mmol/L (98-107); Creatinine, Serum 1.46 mg/dL (0.70-1.30); EST Glomerular Filtration Rate 50 mL/min (>60); Est Glom Filt Rate - Afr Amer 61 mL/min (>60); GGTP 19 U/L (15-85); Globulin 2.8 g/dL (2.2-4.2); Glucose 112 mg/dL (74-106); Magnesium 1.9 mg/dL (1.6-2.6); Phosphorus 2.5 mg/dL (2.5-4.9); Potassium 4.5 mmol/L (3.5-5.1); Protein, Total 6.6 g/dL (6.4-8.2); Sodium Level 139 mmol/L (136-145)
[2021-09-09 10:16] LABS: Lymphocyte 11 % (19-41); Metamyelocyte 2 % (0-1); Monocyte 8 % (0-10); Neutrophil-Band 6 % (0-5); Neutrophil-Segmented 73 % (47-70); Total Cells Counted 100 (MANUAL DIFF)
[2021-09-09 10:18] LABS: Absolute Lymphocyte Count 0.84 X10^3/uL (0.83-4.51)
[2021-09-09 10:19] LABS: Platelet Estimate ADEQUATE (ADEQ); Red Cell Morphology NORM C+C NORMAL (NORM C&C)
[2021-09-11 13:04] LABS: Pathologist Review Reviewed
[2021-09-11 16:58] LABS: Tacrolimus (FK506) 7.5 ng/mL (2.0-20.0)
[2021-10-08 10:57] LABS: Hemoglobin 11.4 g/dL (13.0-16.5); Mean Corp Hgb Conc 30.8 g/dL (32-36); Mean Corpuscular Hgb 30.2 pg (27.0-32.0); Mean Corpuscular Volume 97.9 fL (80-94); Mean Platelet Vol. 9.1 fl (6.2-12.0); POSITIVE COUNT YES; POSITIVE MORPHOLOGY YES; Platelet Count 155 K/mm3 (150-450); RBC Distribution Width CV 12.6 % (11.6-14.6); Red Blood Count 3.78 M/mm3 (4.6-6.2); White Blood Count 7.8 K/mm3 (4.4-11.0)
[2021-10-08 10:59] LABS: Differential Indicated MANUAL DIFF
[2021-10-08 11:18] LABS: ALB/GLOB Ratio 1.2 RATIO (0.9-2.4); AST(SGOT) 10 U/L (15-37); Alanine Aminotransfer ALT/SGPT 17 U/L (16-61); Albumin, Serum 3.6 g/dL (3.2-5.0); Alkaline Phosphatase 63 U/L (45-117); Anion Gap 3 (5-15); BUN 28 mg/dL (7-18); BUN/Creat Ratio 17.3 RATIO (10-20); Bilirubin, Direct 0.08 mg/dL (0.00-0.30); Calcium,Total 9.3 mg/dL (8.5-10.1); Chloride 111 mmol/L (98-107); Creatinine, Serum 1.62 mg/dL (0.70-1.30); EST Glomerular Filtration Rate 45 mL/min (>60); Est Glom Filt Rate - Afr Amer 54 mL/min (>60); GGTP 17 U/L (15-85); Globulin 2.9 g/dL (2.2-4.2); Glucose 102 mg/dL (74-106); Magnesium 1.7 mg/dL (1.6-2.6); Phosphorus 2.9 mg/dL (2.5-4.9); Potassium 4.8 mmol/L (3.5-5.1); Protein, Total 6.5 g/dL (6.4-8.2); Sodium Level 142 mmol/L (136-145)
[2021-10-08 12:00] LABS: Eosinophil 2 % (0-5); Lymphocyte 20 % (19-41); Metamyelocyte 4 % (0-1); Monocyte 9 % (0-10); Myelocyte 5 % (0-0); Neutrophil-Segmented 60 % (47-70); Platelet Estimate ADEQUATE (ADEQ); Total Cells Counted 100 (MANUAL DIFF)
[2021-10-08 12:01] LABS: Ovalocyte 1+; Poikilocytosis 1+
[2021-10-08 12:06] LABS: Absolute Lymphocyte Count 1.56 X10^3/uL (0.83-4.51); Absolute Neutrophil Count 4.7 X10^3/uL (2.0-7.7)
[2021-10-10 11:24] LABS: Pathologist Review Reviewed
[2021-10-12 12:36] LABS: Tacrolimus (FK506) 8.1 ng/mL (2.0-20.0)
== END 2021-10-08 23:59 ==
LOC: PAVLAB 10:39
PROVIDERS: PCP Family Medicine
DX: Z48.24 Encounter for aftercare following lung transplant (principal); Z51.81 Encounter for therapeutic drug level monitoring; E78.5 Hyperlipidemia, unspecified; E55.9 Vitamin D deficiency, unspecified; D84.9 Immunodeficiency, unspecified; R79.9 Abnormal finding of blood chemistry, unspecified; Z94.2 Lung transplant status
CPT/HCPCS: 36415; 80053; 80197; 82248; 82977; 83735; 84100; 85025

== ENCOUNTER → 2021-10-23 | Outpatient (CLI) | payer MEDICARE, OTHER, SELFPAY ==
--- NOTE | 2021-10-24 08:43 | SPIR ---
Spirometry PFT Testing Spirometry PFT Testing: INTRODUCTION: The patient is a 71-year-old male that presents for spirometry due to a history of lung transplantation. Respiratory therapy reported good patient effort. INTERPRETATION: Forced expiration spirometry demonstrated the presence of a mild large airways obstructive ventilatory defect with an FEV1 of 73% of predicted. There was a decrease in FEV1 by 11% when compared to prior spirometry values from August 2021. IMPRESSION: Mild obstructive impairment with interval changes as noted above.
== END | disposition home or self-care (01) ==
LOC: PSN 09:42
PROVIDERS: PCP Family Medicine
DX: Z94.2 Lung transplant status (principal); Z48.24 Encounter for aftercare following lung transplant
CPT/HCPCS: 94010

== ENCOUNTER → 2021-10-24 | Outpatient (CLI) | payer MEDICARE, OTHER, SELFPAY ==
[2021-10-24 14:40] VITALS: BP 161/99; PULSE 71; RESP 12; TEMP 35.9; O2SAT 97; BMI 34.7
[2021-10-24] MEDS: DENOSUMAB 60 MG/ML SC (14:42)
== END | disposition home or self-care (01) ==
LOC: MEDOUTP 14:00
PROVIDERS: PCP Family Medicine; Referring Provider Internal Medicine Endocrinology, Diabetes & Metabolism; Visit Provider Internal Medicine Endocrinology, Diabetes & Metabolism
DX: M81.8 Other osteoporosis without current pathological fracture (principal)
CPT/HCPCS: 96372; J0897

== ENCOUNTER 2021-11-04 10:07 | Outpatient (RCR) | payer MEDICARE, OTHER, SELFPAY ==
[2021-10-09 00:39] VITALS: BMI 31.6
[2021-11-04 11:05] LABS: Hematocrit 38.7 % (40-54); Hemoglobin 11.8 g/dL (13.0-16.5); Mean Corp Hgb Conc 30.5 g/dL (32-36); Mean Corpuscular Hgb 29.9 pg (27.0-32.0); Mean Platelet Vol. 9.4 fl (6.2-12.0); POSITIVE COUNT YES; POSITIVE MORPHOLOGY YES; Platelet Count 185 K/mm3 (150-450); RBC Distribution Width CV 13.6 % (11.6-14.6); RBC Distribution Width SD 48.7 fl (35.1-43.9); Red Blood Count 3.95 M/mm3 (4.6-6.2); White Blood Count 13.2 K/mm3 (4.4-11.0)
[2021-11-04 11:07] LABS: Differential Indicated MANUAL DIFF
[2021-11-04 11:23] LABS: Vitamin D,25 Hydroxy 48.4 ng/mL
[2021-11-04 11:31] LABS: ALB/GLOB Ratio 1.1 RATIO (0.9-2.4); AST(SGOT) 11 U/L (15-37); Alanine Aminotransfer ALT/SGPT 19 U/L (16-61); Albumin, Serum 3.5 g/dL (3.2-5.0); Alkaline Phosphatase 80 U/L (45-117); Anion Gap 6 (5-15); BUN 36 mg/dL (7-18); BUN/Creat Ratio 27.3 RATIO (10-20); Calcium,Total 9.6 mg/dL (8.5-10.1); Chloride 112 mmol/L (98-107); Cholesterol 234 mg/dL (200); Creatinine, Serum 1.32 mg/dL (0.70-1.30); EST Glomerular Filtration Rate 57 mL/min (>60); Est Glom Filt Rate - Afr Amer 68 mL/min (>60); Ferritin 61 ng/mL (26-388); GGTP 26 U/L (15-85); Globulin 3.2 g/dL (2.2-4.2); Glucose 118 mg/dL (74-106); High Density Lipoprotein 60 mg/dL; Iron 95 ug/dL (65-175); Iron Binding Capacity,Total 368 ug/dL (250-450); Magnesium 1.9 mg/dL (1.6-2.6); PERCENT IRON SATURATION 25.8 % (15.0-55.0); Phosphorus 3.1 mg/dL (2.5-4.9); Potassium 4.6 mmol/L (3.5-5.1); Protein, Total 6.7 g/dL (6.4-8.2); Sodium Level 143 mmol/L (136-145); Triglycerides 225 mg/dL; Uric Acid 5.7 mg/dL (3.5-7.2); Very Low Density Lipoprotein 45 mg/dL (5-40)
[2021-11-04 11:32] LABS: Hemoglobin A1c 5.8 % (3.8-5.6)
[2021-11-04 11:59] LABS: Eosinophil 3 % (0-5); Lymphocyte 5 % (19-41); Metamyelocyte 3 % (0-1); Monocyte 4 % (0-10); Myelocyte 3 % (0-0); Neutrophil-Band 2 % (0-5); Neutrophil-Segmented 80 % (47-70); Platelet Estimate ADEQUATE (ADEQ); Red Cell Morphology NORM C+C NORMAL (NORM C&C); Total Cells Counted 100 (MANUAL DIFF)
[2021-11-04 12:00] LABS: Absolute Lymphocyte Count 0.66 X10^3/uL (0.83-4.51); Absolute Neutrophil Count 10.8 X10^3/uL (2.0-7.7); Lymphocyte # 0.66 X10^3/ul (0.83-4.51)
[2021-11-05 13:18] LABS: Pathologist Review Reviewed
[2021-11-06 16:09] LABS: Immunoglobulin A 147 mg/dL (61-437); Immunoglobulin G 371 mg/dL (603-1613); Immunoglobulin M 39 mg/dL (15-143)
[2021-11-06 17:42] LABS: Tacrolimus (FK506) 6.3 ng/mL (2.0-20.0); Transferrin 316 mg/dL (177-329)
== END 2021-11-07 23:59 ==
LOC: PAVLAB 10:07
PROVIDERS: PCP Family Medicine
DX: Z48.24 Encounter for aftercare following lung transplant (principal); Z51.81 Encounter for therapeutic drug level monitoring; E78.5 Hyperlipidemia, unspecified; E55.9 Vitamin D deficiency, unspecified; D84.9 Immunodeficiency, unspecified; R79.9 Abnormal finding of blood chemistry, unspecified; Z94.2 Lung transplant status
CPT/HCPCS: 36415; 80053; 80061; 80197; 82248; 82306; 82728; 82784; 82977; 83036; 83540; 83550; 83735; 84100; 84466; 84550; 85025

== ENCOUNTER → 2021-11-27 | Outpatient (CLI) | payer OTHER, SELFPAY ==
--- NOTE | 2021-11-27 13:02 | SPIR_ITS ---
Spirometry PFT Testing Spirometry PFT Testing: COMPLETE PULMONARY FUNCTION TEST INTERPRETATION Brief HPI: Patient is a 71-year-old male, currently under the care of Dr. Ortega, who presents to [facility] for complete pulmonary function tests secondary to diagnosis of status post lung transplant. Respiratory therapist reports good effort and reproducible results. Interpretation: Forced expiration spirometry shows a mild large airways obstructive ventilatory defect with an FEV1 of 79% predicted. There was no significant bronchodilator response tested. Spirograms are of good quality and plateau slowly, indicating slowly emptying areas of the lungs. The respiratory flow volume loop shows decreased expiratory flow rates at all lung volumes consistent with airway obstruction. Compared to previous pulmonary function tests from 10/23/2021, there has been no significant change. Impression: Mild large airways obstructive ventilatory defect
== END | disposition home or self-care (01) ==
LOC: PSN 09:24
PROVIDERS: PCP Family Medicine
DX: Z94.2 Lung transplant status (principal); Z48.24 Encounter for aftercare following lung transplant
CPT/HCPCS: 94010

== ENCOUNTER 2021-12-02 09:41 | Outpatient (RCR) | payer MEDICARE, OTHER, SELFPAY ==
[2021-11-08 00:25] VITALS: BMI 31.6
[2021-12-02 09:59] LABS: Hematocrit 38.8 % (40-54); Hemoglobin 12.1 g/dL (13.0-16.5); Mean Corp Hgb Conc 31.2 g/dL (32-36); Mean Corpuscular Hgb 30.3 pg (27.0-32.0); Mean Corpuscular Volume 97.2 fL (80-94); Mean Platelet Vol. 8.9 fl (6.2-12.0); POSITIVE COUNT YES; POSITIVE MORPHOLOGY YES; Platelet Count 192 K/mm3 (150-450); RBC Distribution Width CV 13.2 % (11.6-14.6); RBC Distribution Width SD 47.3 fl (35.1-43.9); Red Blood Count 3.99 M/mm3 (4.6-6.2); White Blood Count 8.7 K/mm3 (4.4-11.0)
[2021-12-02 10:04] LABS: Differential Indicated MANUAL DIFF
[2021-12-02 10:14] LABS: ALB/GLOB Ratio 1.2 RATIO (0.9-2.4); AST(SGOT) 12 U/L (15-37); Alanine Aminotransfer ALT/SGPT 16 U/L (16-61); Albumin, Serum 3.6 g/dL (3.2-5.0); Alkaline Phosphatase 75 U/L (45-117); Anion Gap 3 (5-15); BUN 25 mg/dL (7-18); BUN/Creat Ratio 16.7 RATIO (10-20); Bilirubin, Direct 0.07 mg/dL (0.00-0.30); Calcium,Total 9.5 mg/dL (8.5-10.1); Chloride 111 mmol/L (98-107); EST Glomerular Filtration Rate 49 mL/min (>60); Est Glom Filt Rate - Afr Amer 59 mL/min (>60); GGTP 16 U/L (15-85); Glucose 110 mg/dL (74-106); Magnesium 1.7 mg/dL (1.6-2.6); Phosphorus 3.2 mg/dL (2.5-4.9); Potassium 4.4 mmol/L (3.5-5.1); Protein, Total 6.6 g/dL (6.4-8.2); Sodium Level 142 mmol/L (136-145)
[2021-12-02 11:13] LABS: Lymphocyte 20 % (19-41); Monocyte 7 % (0-10); Neutrophil-Band 4 % (0-5); Neutrophil-Segmented 69 % (47-70); Total Cells Counted 100 (MANUAL DIFF)
[2021-12-02 11:14] LABS: Platelet Estimate ADEQUATE (ADEQ); Red Cell Morphology NORM C+C NORMAL (NORM C&C)
[2021-12-02 11:16] LABS: Absolute Lymphocyte Count 1.74 X10^3/uL (0.83-4.51); Absolute Neutrophil Count 6.4 X10^3/uL (2.0-7.7)
[2021-12-02 17:54] LABS: Xtra Tube EP Lab EXTRA TUBE
[2021-12-03 09:56] LABS: Pathologist Review Reviewed
[2021-12-04 12:24] LABS: Tacrolimus (FK506) 10.6 ng/mL (2.0-20.0)
== END 2021-12-08 23:59 ==
LOC: PAVLAB 09:41
PROVIDERS: PCP Family Medicine
DX: Z48.24 Encounter for aftercare following lung transplant (principal); Z51.81 Encounter for therapeutic drug level monitoring; E78.5 Hyperlipidemia, unspecified; E55.9 Vitamin D deficiency, unspecified; D84.9 Immunodeficiency, unspecified; R79.9 Abnormal finding of blood chemistry, unspecified; Z94.2 Lung transplant status
CPT/HCPCS: 36415; 80053; 80197; 82248; 82977; 83735; 84100; 85025

== ENCOUNTER 2021-12-30 10:49 | Outpatient (RCR) | payer MEDICARE, OTHER, SELFPAY ==
[2021-12-09 00:21] VITALS: BMI 31.6
[2021-12-30 11:16] LABS: Hemoglobin 11.7 g/dL (13.0-16.5); Mean Corp Hgb Conc 32.5 g/dL (32-36); Mean Corpuscular Hgb 29.3 pg (27.0-32.0); Mean Platelet Vol. 9.4 fl (6.2-12.0); POSITIVE COUNT YES; POSITIVE DIFFERENTIAL YES; POSITIVE MORPHOLOGY YES; Platelet Count 155 K/mm3 (150-450); RBC Distribution Width CV 12.7 % (11.6-14.6); White Blood Count 3.7 K/mm3 (4.4-11.0)
[2021-12-30 11:18] LABS: Differential Indicated MANUAL DIFF
[2021-12-30 11:51] LABS: Lymphocyte 16 % (19-41); Metamyelocyte 5 % (0-1); Monocyte 2 % (0-10); Myelocyte 1 % (0-0); Neutrophil-Band 13 % (0-5); Neutrophil-Segmented 63 % (47-70); Total Cells Counted 100 (MANUAL DIFF)
[2021-12-30 11:52] LABS: Platelet Estimate ADEQUATE (ADEQ); Red Cell Morphology NORM C+C NORMAL (NORM C&C)
[2021-12-30 11:53] LABS: Absolute Lymphocyte Count 0.59 X10^3/uL (0.83-4.51); Absolute Neutrophil Count 2.8 X10^3/uL (2.0-7.7); Lymphocyte # 0.59 X10^3/ul (0.83-4.51); Neutrophil # 2.81 X10^3/uL (2.7-7.7)
[2021-12-30 12:01] LABS: AST(SGOT) 22 U/L (15-37); Alanine Aminotransfer ALT/SGPT 27 U/L (16-61); Albumin, Serum 3.4 g/dL (3.2-5.0); Alkaline Phosphatase 70 U/L (45-117); Anion Gap 10 (5-15); BUN 28 mg/dL (7-18); BUN/Creat Ratio 16.1 RATIO (10-20); Calcium,Total 8.9 mg/dL (8.5-10.1); Chloride 108 mmol/L (98-107); Creatinine, Serum 1.74 mg/dL (0.70-1.30); EST Glomerular Filtration Rate 41 mL/min (>60); Est Glom Filt Rate - Afr Amer 50 mL/min (>60); GGTP 30 U/L (15-85); Globulin 3.5 g/dL (2.2-4.2); Glucose 103 mg/dL (74-106); Magnesium 1.7 mg/dL (1.6-2.6); Phosphorus 2.2 mg/dL (2.5-4.9); Protein, Total 6.9 g/dL (6.4-8.2); Sodium Level 139 mmol/L (136-145)
[2021-12-30 15:31] LABS: Pathologist Review Reviewed
== END 2022-01-08 23:59 ==
LOC: PAVLAB 10:49
PROVIDERS: PCP Family Medicine
DX: Z48.24 Encounter for aftercare following lung transplant (principal); Z51.81 Encounter for therapeutic drug level monitoring; E78.5 Hyperlipidemia, unspecified; E55.9 Vitamin D deficiency, unspecified; D84.9 Immunodeficiency, unspecified; R79.9 Abnormal finding of blood chemistry, unspecified; Z94.2 Lung transplant status
CPT/HCPCS: 36415; 80053; 80197; 82248; 82977; 83735; 84100; 85025

== ENCOUNTER 2022-01-27 09:54 | Outpatient (RCR) | payer MEDICARE, OTHER, SELFPAY ==
[2022-01-09 00:24] VITALS: BMI 31.6
[2022-01-27 10:41] LABS: Differential Indicated MANUAL DIFF; Hematocrit 33.2 % (40-54); Hemoglobin 10.3 g/dL (13.0-16.5); Mean Corpuscular Volume 93.5 fL (80-94); Mean Platelet Vol. 9.8 fl (6.2-12.0); POSITIVE COUNT YES; POSITIVE MORPHOLOGY YES; Platelet Count 184 K/mm3 (150-450); RBC Distribution Width CV 13.7 % (11.6-14.6); RBC Distribution Width SD 46.5 fl (35.1-43.9); Red Blood Count 3.55 M/mm3 (4.6-6.2); White Blood Count 7.1 K/mm3 (4.4-11.0)
[2022-01-27 11:01] LABS: ALB/GLOB Ratio 1.2 RATIO (0.9-2.4); AST(SGOT) 11 U/L (15-37); Alanine Aminotransfer ALT/SGPT 20 U/L (16-61); Albumin, Serum 3.5 g/dL (3.2-5.0); Alkaline Phosphatase 69 U/L (45-117); Anion Gap 7 (5-15); BUN 23 mg/dL (7-18); BUN/Creat Ratio 16.2 RATIO (10-20); Bilirubin, Direct 0.08 mg/dL (0.00-0.30); Calcium,Total 9.2 mg/dL (8.5-10.1); Chloride 109 mmol/L (98-107); Cholesterol 227 mg/dL (200); Creatinine, Serum 1.42 mg/dL (0.70-1.30); EST Glomerular Filtration Rate 52 mL/min (>60); Est Glom Filt Rate - Afr Amer 63 mL/min (>60); Ferritin 207 ng/mL (26-388); GGTP 22 U/L (15-85); Glucose 127 mg/dL (74-106); High Density Lipoprotein 41 mg/dL; Iron 87 ug/dL (65-175); Iron Binding Capacity,Total 325 ug/dL (250-450); Magnesium 1.9 mg/dL (1.6-2.6); PERCENT IRON SATURATION 26.8 % (15.0-55.0); Phosphorus 1.9 mg/dL (2.5-4.9); Potassium 4.5 mmol/L (3.5-5.1); Protein, Total 6.5 g/dL (6.4-8.2); Sodium Level 141 mmol/L (136-145); Triglycerides 498 mg/dL; Uric Acid 7.2 mg/dL (3.5-7.2)
[2022-01-27 11:15] LABS: Vitamin D,25 Hydroxy 40.1 ng/mL
[2022-01-27 11:23] LABS: Absolute Neutrophil Count 5.3 X10^3/uL (2.0-7.7); Eosinophil 1 % (0-5); Lymphocyte 12 % (19-41); Metamyelocyte 2 % (0-1); Monocyte 7 % (0-10); Myelocyte 2 % (0-0); Neutrophil-Segmented 75 % (47-70); Platelet Estimate ADEQUATE (ADEQ); Promyelocyte 1 % (0-0); Red Cell Morphology NORM C+C NORMAL (NORM C&C); Total Cells Counted 100 (MANUAL DIFF)
[2022-01-27 11:24] LABS: Absolute Lymphocyte Count 0.85 X10^3/uL (0.83-4.51); Lymphocyte # 0.85 X10^3/ul (0.83-4.51)
[2022-01-28 13:07] LABS: Pathologist Review Reviewed
[2022-01-29 16:09] LABS: Immunoglobulin A 151 mg/dL (61-437); Immunoglobulin G 393 mg/dL (603-1613); Immunoglobulin M 40 mg/dL (15-143)
[2022-01-30 08:22] LABS: Tacrolimus (FK506) 5.9 ng/mL (2.0-20.0); Transferrin 254 mg/dL (177-329)
== END 2022-02-07 23:59 ==
LOC: PAVLAB 09:54
PROVIDERS: PCP Family Medicine
DX: Z48.24 Encounter for aftercare following lung transplant (principal); Z51.81 Encounter for therapeutic drug level monitoring; E78.5 Hyperlipidemia, unspecified; E55.9 Vitamin D deficiency, unspecified; D84.9 Immunodeficiency, unspecified; R79.9 Abnormal finding of blood chemistry, unspecified; Z94.2 Lung transplant status
CPT/HCPCS: 36415; 80053; 80061; 80197; 82248; 82306; 82728; 82784; 82977; 83036; 83540; 83550; 83735; 84100; 84466; 84550; 85025

== ENCOUNTER 2022-02-24 09:27 | Outpatient (RCR) | payer MEDICARE, OTHER, SELFPAY ==
[2022-02-08 01:05] VITALS: BMI 31.6
[2022-02-24 09:51] LABS: Hematocrit 36.5 % (40-54); Hemoglobin 11.6 g/dL (13.0-16.5); Mean Corp Hgb Conc 31.8 g/dL (32-36); Mean Corpuscular Hgb 30.3 pg (27.0-32.0); Mean Corpuscular Volume 95.3 fL (80-94); POSITIVE COUNT YES; POSITIVE MORPHOLOGY YES; Platelet Count 167 K/mm3 (150-450); RBC Distribution Width CV 14.6 % (11.6-14.6); RBC Distribution Width SD 51.2 fl (35.1-43.9); Red Blood Count 3.83 M/mm3 (4.6-6.2); White Blood Count 5.1 K/mm3 (4.4-11.0)
[2022-02-24 09:54] LABS: Differential Indicated MANUAL DIFF
[2022-02-24 10:07] LABS: ALB/GLOB Ratio 1.3 RATIO (0.9-2.4); AST(SGOT) 10 U/L (15-37); Alanine Aminotransfer ALT/SGPT 17 U/L (16-61); Albumin, Serum 3.7 g/dL (3.2-5.0); Alkaline Phosphatase 60 U/L (45-117); Anion Gap 8 (5-15); BUN 30 mg/dL (7-18); Bilirubin, Direct 0.13 mg/dL (0.00-0.30); Calcium,Total 9.5 mg/dL (8.5-10.1); Chloride 104 mmol/L (98-107); EST Glomerular Filtration Rate 49 mL/min (>60); Est Glom Filt Rate - Afr Amer 59 mL/min (>60); GGTP 21 U/L (15-85); Globulin 2.9 g/dL (2.2-4.2); Glucose 107 mg/dL (74-106); Magnesium 1.7 mg/dL (1.6-2.6); Phosphorus 3.2 mg/dL (2.5-4.9); Potassium 4.3 mmol/L (3.5-5.1); Protein, Total 6.6 g/dL (6.4-8.2); Sodium Level 142 mmol/L (136-145)
[2022-02-24 10:20] LABS: Lymphocyte 20 % (19-41); Monocyte 5 % (0-10); Neutrophil-Band 2 % (0-5); Neutrophil-Segmented 73 % (47-70); Total Cells Counted 100 (MANUAL DIFF)
[2022-02-24 10:21] LABS: Platelet Estimate ADEQUATE (ADEQ); Red Cell Morphology NORM C+C NORMAL (NORM C&C)
[2022-02-24 10:23] LABS: Absolute Lymphocyte Count 1.02 X10^3/uL (0.83-4.51); Absolute Neutrophil Count 3.8 X10^3/uL (2.0-7.7)
[2022-02-25 13:51] LABS: Pathologist Review Reviewed
[2022-02-27 17:23] LABS: Tacrolimus (FK506) 10.7 ng/mL (2.0-20.0)
== END 2022-03-10 23:59 ==
LOC: PAVLAB 09:27
PROVIDERS: PCP Family Medicine
DX: Z48.24 Encounter for aftercare following lung transplant (principal); Z51.81 Encounter for therapeutic drug level monitoring; E78.5 Hyperlipidemia, unspecified; E55.9 Vitamin D deficiency, unspecified; D84.9 Immunodeficiency, unspecified; R79.9 Abnormal finding of blood chemistry, unspecified; Z94.2 Lung transplant status
CPT/HCPCS: 36415; 80053; 80197; 82248; 82977; 83735; 84100; 85025

== ENCOUNTER → 2022-02-26 | Outpatient (CLI) | payer MEDICARE, OTHER, SELFPAY ==
--- NOTE | 2022-02-27 10:23 | SPIR ---
Spirometry PFT Testing Spirometry PFT Testing: INTRODUCTION: The patient is a 71-year-old male that presents for spirometry testing due to a history of lung transplantation. Respiratory therapy reported good patient effort. INTERPRETATION: Forced expiration spirometry demonstrates a decreased FEV1/FVC of 61 with an FEV1 of 72% of predicted. Spirograms are of good quality but did not plateau indicating slow emptying of the lungs. IMPRESSION: Mild airway obstruction.
== END | disposition home or self-care (01) ==
PROVIDERS: PCP Family Medicine
DX: Z94.2 Lung transplant status (principal); Z48.24 Encounter for aftercare following lung transplant
CPT/HCPCS: 94010

== ENCOUNTER 2022-03-24 08:01 | Outpatient (RCR) | payer MEDICARE, OTHER, SELFPAY ==
[2022-03-11 00:23] VITALS: BMI 31.6
[2022-03-24 08:22] LABS: Absolute Lymphocyte Count 1.24 X10^3/uL (0.83-4.51); Absolute Neutrophil Count 3.2 X10^3/uL (2.0-7.7); Basophil# 0.03 X10^3/uL; Basophil% 0.6 % (0-1); Eosinophil# 0.13 X10^3/uL; Eosinophils% 2.6 % (0-5); Lymphocyte # 1.24 X10^3/ul (0.83-4.51); Lymphocyte % 24.4 % (19-41); Mean Corp Hgb Conc 30.8 g/dL (32-36); Mean Corpuscular Hgb 29.3 pg (27.0-32.0); Mean Corpuscular Volume 95.1 fL (80-94); Mean Platelet Vol. 9.4 fl (6.2-12.0); Monocyte# 0.43 X10^3/uL; Monocyte% 8.5 % (0-10); NRBC Flagged by Analyzer 0 % (0-5); Neutrophil # 3.15 X10^3/uL (2.7-7.7); Neutrophil % 61.9 % (47-70); Platelet Count 183 K/mm3 (150-450); RBC Distribution Width CV 13.5 % (11.6-14.6); RBC Distribution Width SD 47.6 fl (35.1-43.9); White Blood Count 5.1 K/mm3 (4.4-11.0)
[2022-03-24 08:40] LABS: ALB/GLOB Ratio 1.4 RATIO (0.9-2.4); AST(SGOT) 13 U/L (15-37); Alanine Aminotransfer ALT/SGPT 17 U/L (16-61); Alkaline Phosphatase 69 U/L (45-117); Anion Gap 6 (5-15); BUN 28 mg/dL (7-18); BUN/Creat Ratio 18.1 RATIO (10-20); Bilirubin, Direct 0.06 mg/dL (0.00-0.30); Calcium,Total 9.4 mg/dL (8.5-10.1); Chloride 111 mmol/L (98-107); Creatinine, Serum 1.55 mg/dL (0.70-1.30); EST Glomerular Filtration Rate 47 mL/min (>60); Est Glom Filt Rate - Afr Amer 57 mL/min (>60); GGTP 16 U/L (15-85); Globulin 2.9 g/dL (2.2-4.2); Glucose 109 mg/dL (74-106); Magnesium 1.9 mg/dL (1.6-2.6); Phosphorus 2.8 mg/dL (2.5-4.9); Potassium 4.6 mmol/L (3.5-5.1); Protein, Total 6.9 g/dL (6.4-8.2); Sodium Level 142 mmol/L (136-145)
[2022-03-26 16:30] LABS: Tacrolimus (FK506) 11.9 ng/mL (2.0-20.0)
== END 2022-04-09 23:59 ==
LOC: PAVLAB 08:01
PROVIDERS: PCP Family Medicine
DX: Z48.24 Encounter for aftercare following lung transplant (principal); Z51.81 Encounter for therapeutic drug level monitoring; E78.5 Hyperlipidemia, unspecified; E55.9 Vitamin D deficiency, unspecified; D84.9 Immunodeficiency, unspecified; R79.9 Abnormal finding of blood chemistry, unspecified; Z94.2 Lung transplant status
CPT/HCPCS: 36415; 80053; 80197; 82248; 82977; 83735; 84100; 85025

== ENCOUNTER 2022-04-21 08:40 | Outpatient (RCR) | payer MEDICARE, OTHER, SELFPAY ==
[2022-04-10 00:22] VITALS: BMI 31.6
[2022-04-21 09:19] LABS: Hematocrit 40.7 % (40-54); Hemoglobin 12.3 g/dL (13.0-16.5); Mean Corp Hgb Conc 30.2 g/dL (32-36); Mean Corpuscular Hgb 29.1 pg (27.0-32.0); Mean Corpuscular Volume 96.4 fL (80-94); Mean Platelet Vol. 9.2 fl (6.2-12.0); POSITIVE COUNT YES; POSITIVE MORPHOLOGY YES; Platelet Count 172 K/mm3 (150-450); RBC Distribution Width CV 13.1 % (11.6-14.6); Red Blood Count 4.22 M/mm3 (4.6-6.2); White Blood Count 4.7 K/mm3 (4.4-11.0)
[2022-04-21 09:45] LABS: ALB/GLOB Ratio 1.3 RATIO (0.9-2.4); AST(SGOT) 11 U/L (15-37); Alanine Aminotransfer ALT/SGPT 15 U/L (16-61); Albumin, Serum 3.7 g/dL (3.2-5.0); Alkaline Phosphatase 71 U/L (45-117); Anion Gap 4 (5-15); BUN 29 mg/dL (7-18); BUN/Creat Ratio 20.1 RATIO (10-20); Bilirubin, Direct 0.06 mg/dL (0.00-0.30); Calcium,Total 9.1 mg/dL (8.5-10.1); Chloride 113 mmol/L (98-107); Cholesterol 284 mg/dL (200); Creatinine, Serum 1.44 mg/dL (0.70-1.30); EST Glomerular Filtration Rate 51 mL/min (>60); Est Glom Filt Rate - Afr Amer 62 mL/min (>60); Ferritin 69 ng/mL (26-388); GGTP 19 U/L (15-85); Globulin 2.9 g/dL (2.2-4.2); Glucose 110 mg/dL (74-106); High Density Lipoprotein 53 mg/dL; Iron 78 ug/dL (65-175); Iron Binding Capacity,Total 358 ug/dL (250-450); Magnesium 1.9 mg/dL (1.6-2.6); Phosphorus 2.9 mg/dL (2.5-4.9); Potassium 4.3 mmol/L (3.5-5.1); Protein, Total 6.6 g/dL (6.4-8.2); Sodium Level 142 mmol/L (136-145); Triglycerides 262 mg/dL; Uric Acid 6.6 mg/dL (3.5-7.2); Very Low Density Lipoprotein 52 mg/dL (5-40)
[2022-04-21 09:51] LABS: Differential Indicated MANUAL DIFF
[2022-04-21 09:53] LABS: Hemoglobin A1c 5.5 % (3.8-5.6)
[2022-04-21 10:03] LABS: Eosinophil 1 % (0-5); Lymphocyte 22 % (19-41); Metamyelocyte 1 % (0-1); Monocyte 3 % (0-10); Neutrophil-Band 2 % (0-5); Neutrophil-Segmented 71 % (47-70); Total Cells Counted 100 (MANUAL DIFF)
[2022-04-21 10:04] LABS: Platelet Estimate ADEQUATE (ADEQ); Red Cell Morphology NORM C+C NORMAL (NORM C&C)
[2022-04-21 10:19] LABS: Absolute Neutrophil Count 3.5 X10^3/uL (2.0-7.7)
[2022-04-21 10:20] LABS: Absolute Lymphocyte Count 1.04 X10^3/uL (0.83-4.51); Lymphocyte # 1.04 X10^3/ul (0.83-4.51)
[2022-04-22 13:02] LABS: Pathologist Review Reviewed
[2022-04-23 15:08] LABS: Immunoglobulin A 146 mg/dL (61-437); Immunoglobulin G 383 mg/dL (603-1613); Immunoglobulin M 42 mg/dL (15-143)
[2022-04-23 22:13] LABS: Tacrolimus (FK506) 6.8 ng/mL (2.0-20.0); Transferrin 282 mg/dL (177-329)
[2022-04-24 10:32] LABS: Vitamin D 1,25-Dihydroxy 31.5 pg/mL (24.8-81.5)
== END 2022-05-10 23:59 ==
LOC: PAVLAB 08:40
PROVIDERS: PCP Family Medicine
DX: Z48.24 Encounter for aftercare following lung transplant (principal); Z51.81 Encounter for therapeutic drug level monitoring; E78.5 Hyperlipidemia, unspecified; E55.9 Vitamin D deficiency, unspecified; D84.9 Immunodeficiency, unspecified; R79.9 Abnormal finding of blood chemistry, unspecified; Z94.2 Lung transplant status
CPT/HCPCS: 36415; 80053; 80061; 80197; 82248; 82652; 82728; 82784; 82977; 83036; 83540; 83550; 83735; 84100; 84466; 84550; 85025

== ENCOUNTER → 2022-04-25 | Outpatient (CLI) | payer MEDICARE, OTHER, SELFPAY ==
[2022-04-25 14:06] VITALS: BP 154/86; PULSE 66; RESP 16; TEMP 36.3; O2SAT 98
[2022-04-25] MEDS: DENOSUMAB 60 MG/ML SC (14:09)
== END | disposition home or self-care (01) ==
PROVIDERS: PCP Family Medicine; Referring Provider Internal Medicine Endocrinology, Diabetes & Metabolism; Visit Provider Internal Medicine Endocrinology, Diabetes & Metabolism
DX: M81.0 Age-related osteoporosis without current pathological fracture (principal)
CPT/HCPCS: 96372; J0897

== ENCOUNTER → 2022-04-30 | Outpatient (CLI) | payer MEDICARE, OTHER, SELFPAY ==
--- NOTE | 2022-04-30 15:55 | SPIR_ITS ---
Spirometry PFT Testing Spirometry PFT Testing: COMPLETE PULMONARY FUNCTION TEST INTERPRETATION Brief HPI: Patient is a 71-year-old male, currently under the care of Dr. Ortega, who presents to [facility] for complete pulmonary function tests secondary to diagnosis of status post lung transplant. Respiratory therapist reports good effort and reproducible results. Interpretation: Forced expiration spirometry shows a mild large airways obstructive ventilatory defect with an FEV1 of 76% predicted. Bronchodilators were not used during the study. Spirograms are of good quality and plateau slowly, indicating slowly emptying areas of the lungs. The respiratory flow volume loop shows decreased expiratory flow rates at all lung volumes consistent with airway obstruction. Compared to previous pulmonary function tests from 02/26/2022, there has been no significant change. Impression: Mild large airways obstructive ventilatory defect with no significant change compared to previous
== END | disposition home or self-care (01) ==
LOC: PSN 12:50
PROVIDERS: PCP Family Medicine
DX: Z94.2 Lung transplant status (principal); Z48.24 Encounter for aftercare following lung transplant
CPT/HCPCS: 94010

== ENCOUNTER 2022-05-19 10:59 | Outpatient (RCR) | payer MEDICARE, BC, SELFPAY ==
[2022-05-11 00:19] VITALS: BMI 31.6
[2022-05-19 11:24] LABS: Absolute Neutrophil Count 2.6 X10^3/uL (2.0-7.7); Basophil# 0.03 X10^3/uL; Basophil% 0.7 % (0-1); Eosinophil# 0.24 X10^3/uL; Eosinophils% 5.4 % (0-5); Hemoglobin 12.9 g/dL (13.0-16.5); Lymphocyte % 20.3 % (19-41); Mean Corp Hgb Conc 30.7 g/dL (32-36); Mean Corpuscular Hgb 28.9 pg (27.0-32.0); Mean Platelet Vol. 9.1 fl (6.2-12.0); Monocyte# 0.47 X10^3/uL; Monocyte% 10.6 % (0-10); NRBC Flagged by Analyzer 0 % (0-5); Neutrophil # 2.63 X10^3/uL (2.7-7.7); Neutrophil % 59.2 % (47-70); Platelet Count 188 K/mm3 (150-450); RBC Distribution Width CV 12.7 % (11.6-14.6); RBC Distribution Width SD 43.6 fl (35.1-43.9); Red Blood Count 4.47 M/mm3 (4.6-6.2); White Blood Count 4.4 K/mm3 (4.4-11.0)
[2022-05-19 11:53] LABS: ALB/GLOB Ratio 1.3 RATIO (0.9-2.4); AST(SGOT) 12 U/L (15-37); Alanine Aminotransfer ALT/SGPT 20 U/L (16-61); Albumin, Serum 3.9 g/dL (3.2-5.0); Alkaline Phosphatase 56 U/L (45-117); Anion Gap 8 (5-15); BUN 31 mg/dL (7-18); BUN/Creat Ratio 23.7 RATIO (10-20); Calcium,Total 9.5 mg/dL (8.5-10.1); Chloride 105 mmol/L (98-107); Creatinine, Serum 1.31 mg/dL (0.70-1.30); EST Glomerular Filtration Rate 57 mL/min (>60); Est Glom Filt Rate - Afr Amer 69 mL/min (>60); GGTP 16 U/L (15-85); Globulin 3.1 g/dL (2.2-4.2); Glucose 108 mg/dL (74-106); Phosphorus 3.2 mg/dL (2.5-4.9); Potassium 4.1 mmol/L (3.5-5.1); Sodium Level 141 mmol/L (136-145)
[2022-05-19 11:55] LABS: Vitamin D,25 Hydroxy 40.1 ng/mL
[2022-05-22 21:45] LABS: Tacrolimus (FK506) 6.6 ng/mL (2.0-20.0)
== END 2022-06-10 23:59 ==
LOC: PAVLAB 10:59
PROVIDERS: Internal Medicine Endocrinology, Diabetes & Metabolism; PCP Family Medicine
DX: Z48.24 Encounter for aftercare following lung transplant (principal); Z51.81 Encounter for therapeutic drug level monitoring; E78.5 Hyperlipidemia, unspecified; E55.9 Vitamin D deficiency, unspecified; D84.9 Immunodeficiency, unspecified; R79.9 Abnormal finding of blood chemistry, unspecified; Z84.2 Family history of other diseases of the genitourinary system
CPT/HCPCS: 36415; 80053; 80197; 82248; 82306; 82977; 83735; 84100; 85025

== ENCOUNTER → 2022-05-28 | Outpatient (CLI) | payer MEDICARE, BC, SELFPAY ==
--- NOTE | 2022-05-28 14:50 | SPIR_ITS ---
Spirometry PFT Testing Spirometry PFT Testing: COMPLETE PULMONARY FUNCTION TEST INTERPRETATION Brief HPI: Patient is a 71-year-old male, currently under the care of Dr. Ortega, who presents to [facility] for complete pulmonary function tests secondary to diagnosis of status post lung transplant. Respiratory therapist reports good effort and reproducible results. Interpretation: Forced expiration spirometry shows no large airways obstructive ventilatory defect with an FEV1 of 88% predicted. There is no testing for bronchodilators. Spirograms are of good quality and plateau normally. The respiratory flow volume loop shows a normal pattern. Compared to previous pulmonary function tests from 04/30/2022, there is been a significant improvement in FEV1 by 16%. Impression: Grossly normal pulmonary function test with some improvement compared to April 2022
== END | disposition home or self-care (01) ==
PROVIDERS: PCP Family Medicine
DX: Z48.24 Encounter for aftercare following lung transplant (principal); Z94.2 Lung transplant status
CPT/HCPCS: 94010

== ENCOUNTER 2022-06-16 09:03 | Outpatient (RCR) | payer MEDICARE, BC, SELFPAY ==
[2022-06-11 00:25] VITALS: BMI 31.6
[2022-06-16 09:30] LABS: Absolute Lymphocyte Count 1.18 X10^3/uL (0.83-4.51); Absolute Neutrophil Count 2.9 X10^3/uL (2.0-7.7); Basophil# 0.03 X10^3/uL; Basophil% 0.6 % (0-1); Eosinophil# 0.16 X10^3/uL; Eosinophils% 3.3 % (0-5); Hematocrit 39.3 % (40-54); Hemoglobin 12.1 g/dL (13.0-16.5); Lymphocyte # 1.18 X10^3/ul (0.83-4.51); Lymphocyte % 24.6 % (19-41); Mean Corp Hgb Conc 30.8 g/dL (32-36); Mean Corpuscular Hgb 28.7 pg (27.0-32.0); Mean Corpuscular Volume 93.3 fL (80-94); Mean Platelet Vol. 9.2 fl (6.2-12.0); Monocyte# 0.45 X10^3/uL; Monocyte% 9.4 % (0-10); NRBC Flagged by Analyzer 0 % (0-5); Neutrophil # 2.86 X10^3/uL (2.7-7.7); Neutrophil % 59.6 % (47-70); Platelet Count 187 K/mm3 (150-450); RBC Distribution Width CV 13.3 % (11.6-14.6); RBC Distribution Width SD 45.1 fl (35.1-43.9); Red Blood Count 4.21 M/mm3 (4.6-6.2); White Blood Count 4.8 K/mm3 (4.4-11.0)
[2022-06-16 10:05] LABS: ALB/GLOB Ratio 1.2 RATIO (0.9-2.4); AST(SGOT) 13 U/L (15-37); Alanine Aminotransfer ALT/SGPT 16 U/L (16-61); Albumin, Serum 3.8 g/dL (3.2-5.0); Alkaline Phosphatase 54 U/L (45-117); Anion Gap 7 (5-15); BUN 27 mg/dL (7-18); BUN/Creat Ratio 17.8 RATIO (10-20); Chloride 110 mmol/L (98-107); Creatinine, Serum 1.52 mg/dL (0.70-1.30); EST Glomerular Filtration Rate 48 mL/min (>60); Est Glom Filt Rate - Afr Amer 58 mL/min (>60); GGTP 16 U/L (15-85); Globulin 3.2 g/dL (2.2-4.2); Glucose 110 mg/dL (74-106); Phosphorus 3.7 mg/dL (2.5-4.9); Potassium 4.4 mmol/L (3.5-5.1); Sodium Level 143 mmol/L (136-145)
== END 2022-07-08 23:59 ==
LOC: PAVLAB 09:03
PROVIDERS: PCP Family Medicine
DX: Z48.24 Encounter for aftercare following lung transplant (principal); Z51.81 Encounter for therapeutic drug level monitoring; E78.5 Hyperlipidemia, unspecified; E55.9 Vitamin D deficiency, unspecified; D84.9 Immunodeficiency, unspecified; R79.9 Abnormal finding of blood chemistry, unspecified; Z94.2 Lung transplant status
CPT/HCPCS: 36415; 80053; 80197; 82248; 82977; 83735; 84100; 85025

== ENCOUNTER 2022-07-21 10:42 | Outpatient (RCR) | payer MEDICARE, BC, SELFPAY ==
[2022-07-09 00:18] VITALS: BMI 31.6
[2022-07-21 11:10] LABS: Hematocrit 40.4 % (40-54); Hemoglobin 12.6 g/dL (13.0-16.5); Mean Corp Hgb Conc 31.2 g/dL (32-36); Mean Corpuscular Hgb 30.1 pg (27.0-32.0); Mean Corpuscular Volume 96.4 fL (80-94); Mean Platelet Vol. 8.8 fl (6.2-12.0); POSITIVE COUNT YES; POSITIVE MORPHOLOGY YES; Platelet Count 174 K/mm3 (150-450); RBC Distribution Width SD 49.4 fl (35.1-43.9); Red Blood Count 4.19 M/mm3 (4.6-6.2); White Blood Count 4.5 K/mm3 (4.4-11.0)
[2022-07-21 11:11] LABS: Differential Indicated MANUAL DIFF
[2022-07-21 11:29] LABS: ALB/GLOB Ratio 1.3 RATIO (0.9-2.4); AST(SGOT) 13 U/L (15-37); Alanine Aminotransfer ALT/SGPT 22 U/L (16-61); Albumin, Serum 3.8 g/dL (3.2-5.0); Alkaline Phosphatase 56 U/L (45-117); Anion Gap 7 (5-15); BUN 34 mg/dL (7-18); BUN/Creat Ratio 24.5 RATIO (10-20); Bilirubin, Direct 0.08 mg/dL (0.00-0.30); Calcium,Total 9.7 mg/dL (8.5-10.1); Chloride 107 mmol/L (98-107); Creatinine, Serum 1.39 mg/dL (0.70-1.30); EST Glomerular Filtration Rate 53 mL/min (>60); Est Glom Filt Rate - Afr Amer 64 mL/min (>60); GGTP 24 U/L (15-85); Globulin 2.9 g/dL (2.2-4.2); Glucose 109 mg/dL (74-106); Magnesium 1.6 mg/dL (1.6-2.6); Phosphorus 3.1 mg/dL (2.5-4.9); Potassium 4.4 mmol/L (3.5-5.1); Protein, Total 6.7 g/dL (6.4-8.2); Sodium Level 141 mmol/L (136-145)
[2022-07-21 11:31] LABS: Hemoglobin A1c 5.2 % (3.8-5.6)
[2022-07-21 11:33] LABS: Eosinophil 3 % (0-5); Lymphocyte 21 % (19-41); Metamyelocyte 4 % (0-1); Monocyte 3 % (0-10); Neutrophil-Band 4 % (0-5); Neutrophil-Segmented 65 % (47-70); Platelet Estimate ADEQUATE (ADEQ); Red Cell Morphology NORM C+C NORMAL (NORM C&C); Total Cells Counted 100 (MANUAL DIFF)
[2022-07-21 11:35] LABS: Absolute Neutrophil Count 3.1 X10^3/uL (2.0-7.7)
[2022-07-21 11:36] LABS: Absolute Lymphocyte Count 0.94 X10^3/uL (0.83-4.51)
[2022-07-22 12:13] LABS: Pathologist Review Reviewed
[2022-07-24 03:07] LABS: Immunoglobulin A 149 mg/dL (61-437); Immunoglobulin G 395 mg/dL (603-1613); Immunoglobulin M 45 mg/dL (15-143)
[2022-07-24 15:31] LABS: Tacrolimus (FK506) 4.3 ng/mL (2.0-20.0)
== END 2022-08-08 23:59 ==
LOC: PAVLAB 10:42
PROVIDERS: PCP Family Medicine
DX: Z48.24 Encounter for aftercare following lung transplant (principal); Z51.81 Encounter for therapeutic drug level monitoring; E78.5 Hyperlipidemia, unspecified; E55.9 Vitamin D deficiency, unspecified; D84.9 Immunodeficiency, unspecified; R79.9 Abnormal finding of blood chemistry, unspecified; Z94.2 Lung transplant status
CPT/HCPCS: 36415; 80053; 80197; 82248; 82784; 82977; 83036; 83735; 84100; 85025

== ENCOUNTER → 2022-08-07 | Outpatient (CLI) | payer OTHER, SELFPAY ==
--- NOTE | 2022-08-07 16:00 | SPIR ---
Spirometry PFT Testing Spirometry PFT Testing: COMPLETE PULMONARY FUNCTION TEST INTERPRETATION Brief HPI: Patient is a 72-year-old male, currently under the care of Dr. Ortega, who presents to [facility] for complete pulmonary function tests secondary to diagnosis of post lung transplant. Respiratory therapist reports good effort and reproducible results. Interpretation: Forced expiration spirometry shows a mild large airways obstructive ventilatory defect with an FEV1 of 75% predicted. There is no testing for a bronchodilator response. Spirograms are of good quality and plateau slowly, indicating slowly emptying areas of the lungs. The respiratory flow volume loop shows decreased expiratory flow rates at all lung volumes consistent with airway obstruction. Compared to previous pulmonary function tests from 05/28/2022, there is been a significant decrease in FEV1 by 16%. Impression: Mild obstructive ventilatory defect with some worsening compared to May 2022
== END | disposition home or self-care (01) ==
LOC: PSN 12:49
PROVIDERS: Visit Provider Internal Medicine
DX: Z94.2 Lung transplant status (principal); Z48.24 Encounter for aftercare following lung transplant
CPT/HCPCS: 94010

== ENCOUNTER 2022-08-18 09:11 | Outpatient (RCR) | payer MEDICARE, BC, SELFPAY ==
[2022-08-09 01:27] VITALS: BMI 31.6
[2022-08-18 09:29] LABS: Absolute Neutrophil Count 2.6 X10^3/uL (2.0-7.7); Basophil# 0.04 X10^3/uL; Eosinophil# 0.09 X10^3/uL; Eosinophils% 2.3 % (0-5); Hematocrit 40.7 % (40-54); Hemoglobin 12.7 g/dL (13.0-16.5); Lymphocyte % 20.2 % (19-41); Mean Corp Hgb Conc 31.2 g/dL (32-36); Mean Corpuscular Hgb 30.2 pg (27.0-32.0); Mean Corpuscular Volume 96.9 fL (80-94); Mean Platelet Vol. 8.8 fl (6.2-12.0); Monocyte# 0.42 X10^3/uL; Monocyte% 10.6 % (0-10); NRBC Flagged by Analyzer 0 % (0-5); Neutrophil # 2.56 X10^3/uL (2.7-7.7); Neutrophil % 64.4 % (47-70); Platelet Count 146 K/mm3 (150-450); RBC Distribution Width CV 13.8 % (11.6-14.6); RBC Distribution Width SD 49.5 fl (35.1-43.9)
[2022-08-18 09:47] LABS: ALB/GLOB Ratio 1.2 RATIO (0.9-2.4); AST(SGOT) 15 U/L (15-37); Alanine Aminotransfer ALT/SGPT 23 U/L (16-61); Albumin, Serum 3.7 g/dL (3.2-5.0); Alkaline Phosphatase 64 U/L (45-117); Anion Gap 4 (5-15); BUN 32 mg/dL (7-18); BUN/Creat Ratio 22.7 RATIO (10-20); Bilirubin, Direct 0.06 mg/dL (0.00-0.30); Calcium,Total 9.6 mg/dL (8.5-10.1); Chloride 109 mmol/L (98-107); Cholesterol 284 mg/dL (200); Creatinine, Serum 1.41 mg/dL (0.70-1.30); EST Glomerular Filtration Rate 52 mL/min (>60); Est Glom Filt Rate - Afr Amer 63 mL/min (>60); GGTP 27 U/L (15-85); Globulin 3.1 g/dL (2.2-4.2); Glucose 117 mg/dL (74-106); High Density Lipoprotein 53 mg/dL; Magnesium 1.9 mg/dL (1.6-2.6); Phosphorus 3.6 mg/dL (2.5-4.9); Potassium 4.4 mmol/L (3.5-5.1); Protein, Total 6.8 g/dL (6.4-8.2); Sodium Level 140 mmol/L (136-145); Triglycerides 277 mg/dL; Very Low Density Lipoprotein 55 mg/dL (5-40)
== END 2022-09-07 23:59 ==
LOC: PAVLAB 09:11
DX: Z48.24 Encounter for aftercare following lung transplant (principal); Z51.81 Encounter for therapeutic drug level monitoring; E78.5 Hyperlipidemia, unspecified; E55.9 Vitamin D deficiency, unspecified; D84.9 Immunodeficiency, unspecified; R79.9 Abnormal finding of blood chemistry, unspecified; Z94.2 Lung transplant status; Z79.899 Other long term (current) drug therapy; E87.5 Hyperkalemia
CPT/HCPCS: 36415; 80053; 80061; 80197; 82248; 82977; 83735; 84100; 85025

== ENCOUNTER → 2022-09-04 | Outpatient (CLI) | payer OTHER, SELFPAY ==
--- NOTE | 2022-09-04 13:23 | SPIR ---
Spirometry PFT Testing Spirometry PFT Testing: COMPLETE PULMONARY FUNCTION TEST INTERPRETATION Brief HPI: Patient is a 72-year-old male, currently under the care of Dr. Ortega, who presents to [facility] for complete pulmonary function tests secondary to diagnosis of status post lung transplant. Respiratory therapist reports good effort and reproducible results. Interpretation: Forced expiration spirometry shows a mild large airways obstructive ventilatory defect with an FEV1 of 72% predicted. There is no bronchodilator response tested. Spirograms are of good quality and plateau slowly, indicating slowly emptying areas of the lungs. The respiratory flow volume loop shows decreased expiratory flow rates at all lung volumes consistent with airway obstruction. Compared to previous pulmonary function tests from 08/07/2022, there has been no significant change. Impression: Mild obstructive ventilatory defect with no change compared to July 2022
== END | disposition home or self-care (01) ==
LOC: PSN 12:18
PROVIDERS: PCP Nurse Practitioner Family; Referring Provider Internal Medicine; Visit Provider Internal Medicine
DX: Z94.2 Lung transplant status (principal); Z48.24 Encounter for aftercare following lung transplant
CPT/HCPCS: 94010

== ENCOUNTER 2022-09-15 11:10 | Outpatient (RCR) | payer MEDICARE, BC, SELFPAY ==
[2022-09-08 00:28] VITALS: BMI 31.6
[2022-09-15 11:33] LABS: Absolute Lymphocyte Count 0.62 X10^3/uL (0.83-4.51); Absolute Neutrophil Count 5.7 X10^3/uL (2.0-7.7); Basophil# 0.02 X10^3/uL; Basophil% 0.3 % (0-1); Eosinophil# 0.08 X10^3/uL; Eosinophils% 1.2 % (0-5); Hematocrit 42.9 % (40-54); Hemoglobin 13.1 g/dL (13.0-16.5); Lymphocyte # 0.62 X10^3/ul (0.83-4.51); Lymphocyte % 9.1 % (19-41); Mean Corp Hgb Conc 30.5 g/dL (32-36); Mean Corpuscular Hgb 29.4 pg (27.0-32.0); Mean Corpuscular Volume 96.2 fL (80-94); Mean Platelet Vol. 8.9 fl (6.2-12.0); Monocyte# 0.37 X10^3/uL; Monocyte% 5.5 % (0-10); NRBC Flagged by Analyzer 0 % (0-5); Neutrophil # 5.65 X10^3/uL (2.7-7.7); Neutrophil % 83.3 % (47-70); Platelet Count 160 K/mm3 (150-450); RBC Distribution Width CV 13.5 % (11.6-14.6); RBC Distribution Width SD 47.8 fl (35.1-43.9); Red Blood Count 4.46 M/mm3 (4.6-6.2); White Blood Count 6.8 K/mm3 (4.4-11.0)
[2022-09-15 12:10] LABS: ALB/GLOB Ratio 1.4 RATIO (0.9-2.4); AST(SGOT) 16 U/L (15-37); Alanine Aminotransfer ALT/SGPT 21 U/L (16-61); Albumin, Serum 4.1 g/dL (3.2-5.0); Alkaline Phosphatase 51 U/L (45-117); Anion Gap 7 (5-15); BUN 27 mg/dL (7-18); BUN/Creat Ratio 19.3 RATIO (10-20); Bilirubin, Direct 0.08 mg/dL (0.00-0.30); Calcium,Total 10.3 mg/dL (8.5-10.1); Chloride 107 mmol/L (98-107); EST Glomerular Filtration Rate 53 mL/min (>60); Est Glom Filt Rate - Afr Amer 64 mL/min (>60); GGTP 22 U/L (15-85); Globulin 2.9 g/dL (2.2-4.2); Glucose 132 mg/dL (74-106); Magnesium 2.2 mg/dL (1.6-2.6); Phosphorus 3.1 mg/dL (2.5-4.9); Potassium 4.5 mmol/L (3.5-5.1); Sodium Level 141 mmol/L (136-145)
== END 2022-10-08 23:59 ==
LOC: PAVLAB 11:10
PROVIDERS: PCP Nurse Practitioner Family
DX: D84.9 Immunodeficiency, unspecified; R79.9 Abnormal finding of blood chemistry, unspecified; Z94.2 Lung transplant status; Z51.81 Encounter for therapeutic drug level monitoring; Z79.899 Other long term (current) drug therapy
CPT/HCPCS: 36415; 80053; 80197; 82248; 82977; 83735; 84100; 85025

== ENCOUNTER → 2022-10-02 | Outpatient (CLI) | payer OTHER, SELFPAY ==
--- NOTE | 2022-10-03 05:54 | SPIR ---
Spirometry PFT Testing Spirometry PFT Testing: COMPLETE PULMONARY FUNCTION TEST INTERPRETATION Brief HPI: Patient is a 72-year-old male, currently under the care of Dr. Ortega, who presents to [facility] for complete pulmonary function tests secondary to diagnosis of status post lung transplant. Respiratory therapist reports good effort and reproducible results. Interpretation: Forced expiration spirometry shows a mild large airways obstructive ventilatory defect with an FEV1 of 74% predicted. There was no bronchodilator testing completed. Spirograms are of good quality and plateau slowly, indicating slowly emptying areas of the lungs. The respiratory flow volume loop shows decreased expiratory flow rates at all lung volumes consistent with airway obstruction. Compared to previous pulmonary function tests from 09/04/2022, there has been no significant change. Impression: Mild obstructive ventilatory defect with no change compared to previous
== END | disposition home or self-care (01) ==
LOC: PSN 12:50
PROVIDERS: PCP Nurse Practitioner Family; Referring Provider Internal Medicine; Visit Provider Internal Medicine
DX: Z94.2 Lung transplant status (principal); Z48.24 Encounter for aftercare following lung transplant
CPT/HCPCS: 94010

== ENCOUNTER 2022-10-27 08:56 | Outpatient (RCR) | payer OTHER, SELFPAY ==
[2022-10-09 00:26] VITALS: BMI 31.6
[2022-10-27 09:26] LABS: Absolute Lymphocyte Count 0.82 X10^3/uL (0.83-4.51); Basophil# 0.02 X10^3/uL; Basophil% 0.3 % (0-1); Eosinophil# 0.08 X10^3/uL; Eosinophils% 1.3 % (0-5); Hematocrit 40.4 % (40-54); Hemoglobin 12.6 g/dL (13.0-16.5); Lymphocyte # 0.82 X10^3/ul (0.83-4.51); Lymphocyte % 12.8 % (19-41); Mean Corp Hgb Conc 31.2 g/dL (32-36); Mean Corpuscular Hgb 30.1 pg (27.0-32.0); Mean Corpuscular Volume 96.4 fL (80-94); Monocyte# 0.39 X10^3/uL; Monocyte% 6.1 % (0-10); NRBC Flagged by Analyzer 0 % (0-5); Neutrophil # 5.04 X10^3/uL (2.7-7.7); Neutrophil % 78.9 % (47-70); Platelet Count 160 K/mm3 (150-450); RBC Distribution Width CV 13.2 % (11.6-14.6); RBC Distribution Width SD 46.4 fl (35.1-43.9); Red Blood Count 4.19 M/mm3 (4.6-6.2); White Blood Count 6.4 K/mm3 (4.4-11.0)
[2022-10-27 09:41] LABS: ALB/GLOB Ratio 1.2 RATIO (0.9-2.4); AST(SGOT) 9 U/L (15-37); Alanine Aminotransfer ALT/SGPT 22 U/L (16-61); Albumin, Serum 3.6 g/dL (3.2-5.0); Alkaline Phosphatase 72 U/L (45-117); Anion Gap 7 (5-15); BUN 33 mg/dL (7-18); Bilirubin, Direct 0.11 mg/dL (0.00-0.30); Chloride 109 mmol/L (98-107); EST Glomerular Filtration Rate 49 mL/min (>60); Est Glom Filt Rate - Afr Amer 59 mL/min (>60); GGTP 29 U/L (15-85); Globulin 3.1 g/dL (2.2-4.2); Glucose 127 mg/dL (74-106); Magnesium 2.1 mg/dL (1.6-2.6); Phosphorus 3.6 mg/dL (2.5-4.9); Potassium 4.7 mmol/L (3.5-5.1); Protein, Total 6.7 g/dL (6.4-8.2); Sodium Level 142 mmol/L (136-145)
[2022-10-27 11:59] LABS: Hemoglobin A1c 5.8 % (3.8-5.6)
[2022-10-29 10:09] LABS: Immunoglobulin A 159 mg/dL (61-437); Immunoglobulin G 398 mg/dL (603-1613); Immunoglobulin M 42 mg/dL (15-143); Tacrolimus (FK506) 6.1 ng/mL (2.0-20.0)
== END 2022-11-07 23:59 ==
LOC: PAVLAB 08:56
PROVIDERS: PCP Nurse Practitioner Family
DX: Z48.24 Encounter for aftercare following lung transplant (principal); E87.5 Hyperkalemia; E78.5 Hyperlipidemia, unspecified; E55.9 Vitamin D deficiency, unspecified; D84.9 Immunodeficiency, unspecified; R79.9 Abnormal finding of blood chemistry, unspecified; Z94.2 Lung transplant status; Z51.81 Encounter for therapeutic drug level monitoring; Z79.899 Other long term (current) drug therapy
CPT/HCPCS: 36415; 80053; 80197; 82248; 82784; 82977; 83036; 83735; 84100; 85025

== ENCOUNTER 2022-10-28 13:58 | Outpatient (CLI) | payer MEDICARE, OTHER, BC, SELFPAY ==
[2022-10-28] MEDS: DENOSUMAB 60 MG/ML SC (14:29)
[2022-10-28 14:34] VITALS: BP 143/74; PULSE 68; RESP 16; TEMP 36.3; O2SAT 95; BMI 36.5
== END 2022-10-28 13:59 | disposition home or self-care (01) ==
PROVIDERS: PCP Nurse Practitioner Family; Referring Provider Internal Medicine Endocrinology, Diabetes & Metabolism; Visit Provider Internal Medicine Endocrinology, Diabetes & Metabolism
DX: M81.0 Age-related osteoporosis without current pathological fracture (principal)
CPT/HCPCS: 96372; J0897

== ENCOUNTER 2022-11-24 09:20 | Outpatient (RCR) | payer OTHER, SELFPAY ==
[2022-11-08 01:00] VITALS: BMI 31.6
[2022-11-24 09:41] LABS: Absolute Lymphocyte Count 0.76 X10^3/uL (0.83-4.51); Absolute Neutrophil Count 8.9 X10^3/uL (2.0-7.7); Basophil# 0.04 X10^3/uL; Basophil% 0.4 % (0-1); Eosinophil# 0.13 X10^3/uL; Eosinophils% 1.2 % (0-5); Hematocrit 30.5 % (40-54); Hemoglobin 8.9 g/dL (13.0-16.5); Lymphocyte # 0.76 X10^3/ul (0.83-4.51); Lymphocyte % 7.1 % (19-41); Mean Corp Hgb Conc 29.2 g/dL (32-36); Mean Corpuscular Hgb 29.8 pg (27.0-32.0); Mean Platelet Vol. 8.7 fl (6.2-12.0); Monocyte# 0.75 X10^3/uL; NRBC Flagged by Analyzer 0.2 % (0-5); Neutrophil # 8.85 X10^3/uL (2.7-7.7); Platelet Count 226 K/mm3 (150-450); RBC Distribution Width CV 14.7 % (11.6-14.6); RBC Distribution Width SD 53.5 fl (35.1-43.9); Red Blood Count 2.99 M/mm3 (4.6-6.2); White Blood Count 10.7 K/mm3 (4.4-11.0)
[2022-11-24 09:58] LABS: AST(SGOT) 11 U/L (15-37); Alanine Aminotransfer ALT/SGPT 18 U/L (16-61); Albumin, Serum 3.2 g/dL (3.2-5.0); Alkaline Phosphatase 69 U/L (45-117); Anion Gap 6 (5-15); BUN 33 mg/dL (7-18); BUN/Creat Ratio 21.6 RATIO (10-20); Bilirubin, Direct 0.09 mg/dL (0.00-0.30); Calcium,Total 9.5 mg/dL (8.5-10.1); Chloride 108 mmol/L (98-107); Creatinine, Serum 1.53 mg/dL (0.70-1.30); EST Glomerular Filtration Rate 48 mL/min (>60); Est Glom Filt Rate - Afr Amer 58 mL/min (>60); GGTP 23 U/L (15-85); Globulin 3.2 g/dL (2.2-4.2); Glucose 134 mg/dL (74-106); Magnesium 2.3 mg/dL (1.6-2.6); Phosphorus 3.5 mg/dL (2.5-4.9); Potassium 4.5 mmol/L (3.5-5.1); Protein, Total 6.4 g/dL (6.4-8.2); Sodium Level 141 mmol/L (136-145)
[2022-11-26 12:09] LABS: Tacrolimus (FK506) 3.5 ng/mL (2.0-20.0)
== END 2022-12-08 23:59 ==
LOC: PAVLAB 09:20
PROVIDERS: PCP Nurse Practitioner Family
DX: Z48.24 Encounter for aftercare following lung transplant (principal); E87.5 Hyperkalemia; E78.5 Hyperlipidemia, unspecified; E55.9 Vitamin D deficiency, unspecified; D84.9 Immunodeficiency, unspecified; R79.9 Abnormal finding of blood chemistry, unspecified; Z94.2 Lung transplant status; Z51.81 Encounter for therapeutic drug level monitoring; Z79.899 Other long term (current) drug therapy
CPT/HCPCS: 36415; 80053; 80197; 82248; 82977; 83735; 84100; 85025

== ENCOUNTER 2022-12-22 09:05 | Outpatient (RCR) | payer OTHER, SELFPAY ==
[2022-12-09 00:17] VITALS: BMI 31.6
[2022-12-22 09:23] LABS: Absolute Lymphocyte Count 1.06 X10^3/uL (0.83-4.51); Basophil# 0.02 X10^3/uL; Basophil% 0.4 % (0-1); Eosinophil# 0.17 X10^3/uL; Hematocrit 38.2 % (40-54); Hemoglobin 11.4 g/dL (13.0-16.5); Lymphocyte # 1.06 X10^3/ul (0.83-4.51); Lymphocyte % 18.8 % (19-41); Mean Corp Hgb Conc 29.8 g/dL (32-36); Mean Corpuscular Hgb 28.8 pg (27.0-32.0); Mean Corpuscular Volume 96.5 fL (80-94); Mean Platelet Vol. 8.9 fl (6.2-12.0); Monocyte# 0.43 X10^3/uL; Monocyte% 7.6 % (0-10); NRBC Flagged by Analyzer 0 % (0-5); Neutrophil # 3.95 X10^3/uL (2.7-7.7); Neutrophil % 69.8 % (47-70); Platelet Count 201 K/mm3 (150-450); RBC Distribution Width CV 13.8 % (11.6-14.6); RBC Distribution Width SD 49.1 fl (35.1-43.9); Red Blood Count 3.96 M/mm3 (4.6-6.2); White Blood Count 5.7 K/mm3 (4.4-11.0)
[2022-12-22 09:42] LABS: ALB/GLOB Ratio 1.1 RATIO (0.9-2.4); AST(SGOT) 9 U/L (15-37); Alanine Aminotransfer ALT/SGPT 16 U/L (16-61); Albumin, Serum 3.6 g/dL (3.2-5.0); Alkaline Phosphatase 109 U/L (45-117); Anion Gap 4 (5-15); BUN 27 mg/dL (7-18); BUN/Creat Ratio 20.8 RATIO (10-20); Bilirubin, Direct < 0.05 mg/dL (0.00-0.30); Calcium,Total 9.7 mg/dL (8.5-10.1); Chloride 109 mmol/L (98-107); EST Glomerular Filtration Rate 57 mL/min (>60); Est Glom Filt Rate - Afr Amer 69 mL/min (>60); GGTP 23 U/L (15-85); Globulin 3.3 g/dL (2.2-4.2); Glucose 120 mg/dL (74-106); Phosphorus 2.8 mg/dL (2.5-4.9); Potassium 4.3 mmol/L (3.5-5.1); Protein, Total 6.9 g/dL (6.4-8.2); Sodium Level 142 mmol/L (136-145)
== END 2023-01-08 23:59 ==
LOC: PAVLAB 09:05
PROVIDERS: PCP Nurse Practitioner Family
DX: Z48.24 Encounter for aftercare following lung transplant (principal); E87.5 Hyperkalemia; E78.5 Hyperlipidemia, unspecified; E55.9 Vitamin D deficiency, unspecified; D84.9 Immunodeficiency, unspecified; R79.9 Abnormal finding of blood chemistry, unspecified; Z94.2 Lung transplant status; Z51.81 Encounter for therapeutic drug level monitoring; Z79.899 Other long term (current) drug therapy
CPT/HCPCS: 36415; 80053; 80197; 82248; 82977; 83735; 84100; 85025

== ENCOUNTER → 2023-01-02 | Outpatient (CLI) | payer OTHER, SELFPAY ==
--- NOTE | 2023-01-05 07:57 | SPIR ---
Spirometry PFT Testing Spirometry PFT Testing: INTRODUCTION: The patient is a 72-year-old male who presents for spirometry testing status post lung transplantation. INTERPRETATION: Forced expiration spirometry demonstrated the presence of a mild large airways obstructive ventilatory impairment with an FEV1/FVC of 63% and an FEV1 of 75% of predicted. IMPRESSION: Mild obstructive ventilatory impairment
== END | disposition home or self-care (01) ==
LOC: PSN 12:18
PROVIDERS: PCP Nurse Practitioner Family; Referring Provider Internal Medicine; Visit Provider Internal Medicine
DX: Z94.2 Lung transplant status (principal); Z48.24 Encounter for aftercare following lung transplant
CPT/HCPCS: 94010

== ENCOUNTER 2023-01-19 10:09 | Outpatient (RCR) | payer OTHER, SELFPAY ==
[2023-01-09 00:29] VITALS: BMI 31.6
[2023-01-19 10:34] LABS: Absolute Lymphocyte Count 1.02 X10^3/uL (0.83-4.51); Absolute Neutrophil Count 4.1 X10^3/uL (2.0-7.7); Basophil# 0.02 X10^3/uL; Basophil% 0.3 % (0-1); Eosinophil# 0.11 X10^3/uL; Eosinophils% 1.9 % (0-5); Hematocrit 39.4 % (40-54); Hemoglobin 11.7 g/dL (13.0-16.5); Lymphocyte # 1.02 X10^3/ul (0.83-4.51); Lymphocyte % 17.8 % (19-41); Mean Corp Hgb Conc 29.7 g/dL (32-36); Mean Corpuscular Hgb 28.4 pg (27.0-32.0); Mean Corpuscular Volume 95.6 fL (80-94); Mean Platelet Vol. 9.2 fl (6.2-12.0); Monocyte# 0.49 X10^3/uL; Monocyte% 8.6 % (0-10); NRBC Flagged by Analyzer 0 % (0-5); Neutrophil # 4.07 X10^3/uL (2.7-7.7); Neutrophil % 71.1 % (47-70); Platelet Count 173 K/mm3 (150-450); RBC Distribution Width CV 13.8 % (11.6-14.6); RBC Distribution Width SD 48.7 fl (35.1-43.9); Red Blood Count 4.12 M/mm3 (4.6-6.2); White Blood Count 5.7 K/mm3 (4.4-11.0)
[2023-01-19 10:51] LABS: ALB/GLOB Ratio 1.2 RATIO (0.9-2.4); AST(SGOT) 10 U/L (15-37); Alanine Aminotransfer ALT/SGPT 19 U/L (16-61); Albumin, Serum 3.7 g/dL (3.2-5.0); Alkaline Phosphatase 72 U/L (45-117); Anion Gap 5 (5-15); BUN 25 mg/dL (7-18); BUN/Creat Ratio 19.7 RATIO (10-20); Bilirubin, Direct 0.08 mg/dL (0.00-0.30); Calcium,Total 9.2 mg/dL (8.5-10.1); Chloride 107 mmol/L (98-107); Creatinine, Serum 1.27 mg/dL (0.70-1.30); EST Glomerular Filtration Rate 59 mL/min (>60); Est Glom Filt Rate - Afr Amer 71 mL/min (>60); GGTP 19 U/L (15-85); Globulin 3.1 g/dL (2.2-4.2); Glucose 122 mg/dL (74-106); Magnesium 1.7 mg/dL (1.6-2.6); Phosphorus 2.8 mg/dL (2.5-4.9); Potassium 3.9 mmol/L (3.5-5.1); Protein, Total 6.8 g/dL (6.4-8.2); Sodium Level 141 mmol/L (136-145)
[2023-01-21 15:08] LABS: Immunoglobulin A 146 mg/dL (61-437); Immunoglobulin G 377 mg/dL (603-1613); Immunoglobulin M 39 mg/dL (15-143); Tacrolimus (FK506) 6.5 ng/mL (2.0-20.0)
== END 2023-02-07 23:59 ==
LOC: PAVLAB 10:09
PROVIDERS: PCP Nurse Practitioner Family
DX: Z48.24 Encounter for aftercare following lung transplant (principal); E87.5 Hyperkalemia; E78.5 Hyperlipidemia, unspecified; E55.9 Vitamin D deficiency, unspecified; D84.9 Immunodeficiency, unspecified; R79.9 Abnormal finding of blood chemistry, unspecified; Z94.2 Lung transplant status; Z51.81 Encounter for therapeutic drug level monitoring; Z79.899 Other long term (current) drug therapy
CPT/HCPCS: 36415; 80053; 80197; 82248; 82784; 82977; 83735; 84100; 85025

== ENCOUNTER → 2023-01-29 | Outpatient (CLI) | payer MEDICARE, BC, SELFPAY ==
[2023-01-29 13:08] LABS: Hemoglobin A1c 5.4 % (3.8-5.6)
[2023-01-29 13:30] LABS: AST(SGOT) 10 U/L (15-37); Alanine Aminotransfer ALT/SGPT 20 U/L (16-61); Albumin, Serum 3.9 g/dL (3.2-5.0); Alkaline Phosphatase 66 U/L (45-117); Cholesterol 266 mg/dL (200); Globulin 2.9 g/dL (2.2-4.2); High Density Lipoprotein 49 mg/dL; Protein, Total 6.8 g/dL (6.4-8.2); Triglycerides 358 mg/dL; Very Low Density Lipoprotein 72 mg/dL (5-40)
== END | disposition home or self-care (01) ==
PROVIDERS: PCP Nurse Practitioner Family; Referring Provider Nurse Practitioner Family; Visit Provider Nurse Practitioner Family
DX: E11.9 Type 2 diabetes mellitus without complications (principal); I10 Essential (primary) hypertension; I25.10 Atherosclerotic heart disease of native coronary artery without angina pectoris; Z95.5 Presence of coronary angioplasty implant and graft
CPT/HCPCS: 36415; 80061; 80076; 83036

== ENCOUNTER → 2023-02-03 | Outpatient (CLI) | payer OTHER, SELFPAY ==
--- NOTE | 2023-02-03 14:40 | SPIR_ITS ---
Spirometry PFT Testing Spirometry PFT Testing: COMPLETE PULMONARY FUNCTION TEST INTERPRETATION Brief HPI: Patient is a 72-year-old male, currently under the care of Dr. Ortega, who presents to [facility] for complete pulmonary function tests secondary to diagnosis of status post lung transplant. Respiratory therapist reports good effort and reproducible results. Interpretation: Forced expiration spirometry shows a mild large airways obstructive ventilatory defect with an FEV1 of 71% predicted. There was no testing of bronchodilators. Spirograms are of good quality and plateau slowly, indicating slowly emptying areas of the lungs. The respiratory flow volume loop shows decreased expiratory flow rates at all lung volumes consistent with airway obstruction. No previous pulmonary function tests were available for review. Impression: Mild large airways obstructive ventilatory defect
== END | disposition home or self-care (01) ==
LOC: PSN 12:31
PROVIDERS: PCP Nurse Practitioner Family; Referring Provider Internal Medicine; Visit Provider Internal Medicine
DX: Z94.2 Lung transplant status (principal); Z48.24 Encounter for aftercare following lung transplant
CPT/HCPCS: 94010

== ENCOUNTER 2023-02-16 10:09 | Outpatient (RCR) | payer OTHER, SELFPAY ==
[2023-02-08 00:41] VITALS: BMI 31.6
[2023-02-16 10:27] LABS: Absolute Lymphocyte Count 1.18 X10^3/uL (0.83-4.51); Absolute Neutrophil Count 4.3 X10^3/uL (2.0-7.7); Basophil# 0.04 X10^3/uL; Basophil% 0.7 % (0-1); Eosinophil# 0.15 X10^3/uL; Eosinophils% 2.4 % (0-5); Hematocrit 41.3 % (40-54); Hemoglobin 12.5 g/dL (13.0-16.5); Lymphocyte # 1.18 X10^3/ul (0.83-4.51); Lymphocyte % 19.2 % (19-41); Mean Corp Hgb Conc 30.3 g/dL (32-36); Mean Corpuscular Hgb 28.5 pg (27.0-32.0); Mean Corpuscular Volume 94.1 fL (80-94); Mean Platelet Vol. 8.8 fl (6.2-12.0); Monocyte# 0.42 X10^3/uL; Monocyte% 6.8 % (0-10); NRBC Flagged by Analyzer 0 % (0-5); Neutrophil # 4.34 X10^3/uL (2.7-7.7); Neutrophil % 70.6 % (47-70); Platelet Count 175 K/mm3 (150-450); RBC Distribution Width CV 13.9 % (11.6-14.6); RBC Distribution Width SD 48.6 fl (35.1-43.9); Red Blood Count 4.39 M/mm3 (4.6-6.2); White Blood Count 6.2 K/mm3 (4.4-11.0)
[2023-02-16 11:04] LABS: ALB/GLOB Ratio 1.2 RATIO (0.9-2.4); AST(SGOT) 12 U/L (15-37); Alanine Aminotransfer ALT/SGPT 18 U/L (16-61); Albumin, Serum 3.6 g/dL (3.2-5.0); Alkaline Phosphatase 62 U/L (45-117); Anion Gap 7 (5-15); BUN 23 mg/dL (7-18); BUN/Creat Ratio 18.4 RATIO (10-20); Bilirubin, Direct 0.08 mg/dL (0.00-0.30); Calcium,Total 9.1 mg/dL (8.5-10.1); Chloride 111 mmol/L (98-107); Creatinine, Serum 1.25 mg/dL (0.70-1.30); EST Glomerular Filtration Rate 60 mL/min (>60); Est Glom Filt Rate - Afr Amer 73 mL/min (>60); GGTP 19 U/L (15-85); Glucose 109 mg/dL (74-106); Magnesium 1.8 mg/dL (1.6-2.6); Phosphorus 2.2 mg/dL (2.5-4.9); Potassium 4.1 mmol/L (3.5-5.1); Protein, Total 6.6 g/dL (6.4-8.2); Sodium Level 145 mmol/L (136-145)
[2023-02-18 02:07] LABS: Tacrolimus (FK506) 5.6 ng/mL (2.0-20.0)
== END 2023-03-10 23:59 ==
LOC: PAVLAB 10:09
PROVIDERS: PCP Nurse Practitioner Family
DX: Z48.24 Encounter for aftercare following lung transplant (principal); D84.9 Immunodeficiency, unspecified; R79.9 Abnormal finding of blood chemistry, unspecified; Z94.2 Lung transplant status; Z51.81 Encounter for therapeutic drug level monitoring; Z79.899 Other long term (current) drug therapy
CPT/HCPCS: 36415; 80053; 80197; 82248; 82977; 83735; 84100; 85025

== ENCOUNTER → 2023-02-27 | Outpatient (CLI) | payer MEDICARE, BC, SELFPAY ==
[2023-03-03 11:08] LABS: Alternaria tenuis <0.10 kU/L (Class 0); Ash, White <0.10 kU/L (Class 0); Aspergillus fumigatus <0.10 kU/L (Class 0); Bermuda Grass <0.10 kU/L (Class 0); Birch <0.10 kU/L (Class 0); Black Walnut <0.10 kU/L (Class 0); Cat Hair / Dander,Stand 0.16 kU/L (Class 0/I); Cedar, Mountain <0.10 kU/L (Class 0); Cladosporium herbarum <0.10 kU/L (Class 0); Cockroach, American 0.39 kU/L (Class I); Cottonwood <0.10 kU/L (Class 0); D farinae Mite 0.11 kU/L (Class 0/I); D pteronyssinus <0.10 kU/L (Class 0); Dog Epithelia <0.10 kU/L (Class 0); Elm, American White <0.10 kU/L (Class 0); Immunoglobulin E 91 IU/mL (6-495); Maple/Box Elder <0.10 kU/L (Class 0); Mouse Urine <0.10 kU/L (Class 0); Mulberry, White <0.10 kU/L (Class 0); Oak, White <0.10 kU/L (Class 0); Pecan <0.10 kU/L (Class 0); Penicillium Notatum <0.10 kU/L (Class 0); Pigweed, Rough <0.10 kU/L (Class 0); Ragweed, Short/Common 0.13 kU/L (Class 0/I); Russian Thistle <0.10 kU/L (Class 0); Sheep Sorrel <0.10 kU/L (Class 0); Sycamore, American <0.10 kU/L (Class 0); Timothy Grass <0.10 kU/L (Class 0)
== END | disposition home or self-care (01) ==
LOC: PAVLAB 11:47
PROVIDERS: PCP Nurse Practitioner Family; Referring Provider Otolaryngology; Visit Provider Otolaryngology
DX: T78.40XA Allergy, unspecified, initial encounter (principal)
CPT/HCPCS: 36415; 82785; 86003

== ENCOUNTER 2023-03-16 09:57 | Outpatient (RCR) | payer MEDICARE, BC, SELFPAY ==
[2023-03-11 00:49] VITALS: BMI 31.6
[2023-03-16 10:14] LABS: Absolute Lymphocyte Count 1.15 X10^3/uL (0.83-4.51); Absolute Neutrophil Count 3.5 X10^3/uL (2.0-7.7); Basophil# 0.02 X10^3/uL; Basophil% 0.4 % (0-1); Eosinophil# 0.14 X10^3/uL; Eosinophils% 2.6 % (0-5); Hematocrit 41.1 % (40-54); Hemoglobin 12.8 g/dL (13.0-16.5); Lymphocyte # 1.15 X10^3/ul (0.83-4.51); Lymphocyte % 21.5 % (19-41); Mean Corp Hgb Conc 31.1 g/dL (32-36); Mean Corpuscular Hgb 28.6 pg (27.0-32.0); Mean Corpuscular Volume 91.7 fL (80-94); Mean Platelet Vol. 9.7 fl (6.2-12.0); Monocyte# 0.51 X10^3/uL; Monocyte% 9.5 % (0-10); NRBC Flagged by Analyzer 0 % (0-5); Neutrophil # 3.53 X10^3/uL (2.7-7.7); Neutrophil % 65.8 % (47-70); Platelet Count 173 K/mm3 (150-450); RBC Distribution Width CV 13.6 % (11.6-14.6); RBC Distribution Width SD 46.3 fl (35.1-43.9); Red Blood Count 4.48 M/mm3 (4.6-6.2); White Blood Count 5.4 K/mm3 (4.4-11.0)
[2023-03-16 10:34] LABS: ALB/GLOB Ratio 1.3 RATIO (0.9-2.4); AST(SGOT) 11 U/L (15-37); Alanine Aminotransfer ALT/SGPT 21 U/L (16-61); Albumin, Serum 3.9 g/dL (3.2-5.0); Alkaline Phosphatase 66 U/L (45-117); Anion Gap 4 (5-15); BUN 33 mg/dL (7-18); BUN/Creat Ratio 20.6 RATIO (10-20); Bilirubin, Direct 0.08 mg/dL (0.00-0.30); Calcium,Total 9.5 mg/dL (8.5-10.1); Chloride 109 mmol/L (98-107); EST Glomerular Filtration Rate 45 mL/min (>60); Est Glom Filt Rate - Afr Amer 55 mL/min (>60); GGTP 18 U/L (15-85); Globulin 2.9 g/dL (2.2-4.2); Glucose 107 mg/dL (74-106); Magnesium 1.9 mg/dL (1.6-2.6); Phosphorus 2.6 mg/dL (2.5-4.9); Potassium 4.2 mmol/L (3.5-5.1); Protein, Total 6.8 g/dL (6.4-8.2); Sodium Level 139 mmol/L (136-145)
[2023-03-19 14:09] LABS: Tacrolimus (FK506) 6.9 ng/mL (2.0-20.0)
== END 2023-04-09 23:59 ==
LOC: PAVLAB 09:57
PROVIDERS: PCP Nurse Practitioner Family
DX: D84.9 Immunodeficiency, unspecified; R79.9 Abnormal finding of blood chemistry, unspecified; Z94.2 Lung transplant status; Z51.81 Encounter for therapeutic drug level monitoring; Z79.899 Other long term (current) drug therapy
CPT/HCPCS: 36415; 80053; 80197; 82248; 82977; 83735; 84100; 85025

== ENCOUNTER 2023-03-23 13:00 | Outpatient (RCR) | payer MEDICARE, BC, SELFPAY ==
--- NOTE | 2023-01-19 12:53 | HP.PTEVAL ---
Patient's Visit Information Visit Information Visit Information: PEDRO ORTIZ is a 72 year old M referred to Physical Therapy by DOE CARMEN with a diagnosis of LUMBAR STENOSIS W/NEUROGENIC CLAUDICATION. Date of Evaluation: 01/19/23 Physical Therapist: Hilda San PT, Cert MDT Visit Plan Frequency: 2-3x /Week Duration: 4-6 Weeks Plan: *GAIT BELT FOR SAFETY* *LUMBAR STABILIZATION WITH NEUTRAL SPINE ONLY - NO BENDING OR TWISTING* *LUNG TRANSPLANT PATIENT 2020* GAIT AND BALANCE TRAINING. ILDA LE ROM, STRETCHING AND STRENGTHENING. FOCUS ON LE STRENGTHENING AND CORE STABILIZATION. WALKER RECOMMENDED FOR SAFETY. 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 LIVES WITH THAT GETS AROUND WITH A WALKER. LIVES IN A RANCH. STEPS TO BASEMENT. PUTS SALT IN SOFTNER - 40 LB BAGS - PUT ONE IN THE OTHER DAY. [employer] AND WAS COMING 2-3 TIMES A WEEK UNTIL BACK PROBLEMS STARTED. Present symptoms: BACK MUSCLE SPASMS AND PAIN. ILDA LE WEAKNESS - ABOUT THE SAME BOTH LEGS. DENIES LEG PAIN. FREQUENT LEG NUMBNESS R > L. Present since: FALL 2020 Pain Scale: WORST 8/10, LEAST 2/10 Currently: 2/10 Is it getting better, worse or staying the same: PATIENT REPORTS HE THINKS HE IS GETTING WORSE. HE REPORTS HIS LEGS SEEMS TO BE GETTING WORSE/WEAKER. Commenced as a result of: NO APPARENT REASON Symptoms at onset: BACK PAIN AND LEG WEAKNESS Worse: STANDING AND WALKING Better: SITTING AND LYING Disturbed sleep: NO Previous history/Previous treatment: PAIN MGMT PRIOR TO SURGERY INCLUDING INJECTION WITHOUT SUCCESS. Treatment this episode: LUMBAR FUSION L2-S1 NOVEMBER [address] FIONA DE PAZ NEURO SPINE. PATIENT DENIES ANY COMPLICATIONS WITH HIS BACK SURGERY THAT HE IS AWARE OF. PATIENT REPORTS THAT Coughing/sneezing/straining: NEGATIVE Gait: GETTING AROUND WITH CANE. ONE FALL SINCE SURGERY THAT PATIENT RELATES WET CLOGS ABOUT A MONTH AGO - PATIENT REPORTS THE SURGEON IS AWARE OF THAT FALL. LAST VISIT WAS 12/17/22 WITH SURGEON AND THAT WAS WHEN PT WAS ORDERED. PATIENT REPORTS DELAYING PT UNTIL NOW BECAUSE HE THOUGHT HE COULD DO IT ON HIS OWN. Bowel or Bladder Dysfunction: NO Accidents: NO Unexplained weight loss: NO Imaging: LUMBAR X-RAY AT LAST SURGICAL FOLLOW UP AND PATIENT REPORTS HE WAS TOLD IT LOOKED REAL GOOD. PMH/Recent major surgery: MAY 2020 L LUNG TRANSPLANT FOR COPD AND emphysema. See further PMH below. CURRENT PHYSICIAN RESTRICTIONS: PATIENT REPORTS HE IS STILL NOT SUPPOSED TO BEND, LIFT OR TWIST UNTIL NEXT FOLLOW UP MAR 2023. OTHER: PATIENT REPORTS HIS L LEG WAS WEAKER THAN THE R BEFORE SURGERY AND NOW HIS R LEG WANTS TO BUCKLE MORE THAN THE L. PATIENT REPORTS THAT HE HAS LESS BACK PAIN NOW THAN BEFORE THE SURGERY BUT HIS LEG WEAKNESS IS ABOUT THE SAME AND GETTING SOME WORSE. Objective Objective: Sitting/Standing Posture: POOR. FH. RSH'S. REDUCED LUMBAR LORDOSIS. Active Correction of posture: NE Other Observations: THIS PATIENT AMBULATES INDEP'LY INTO PT WITH A WALKING STICK WITH R LE BUCKLING MULTIPLE TIMES BUT PATIENT MAINTAINS HIS BALANCE INDEP'LY EACH TIME. HE AMBULATED X 300 FEET WITHOUT STOPPING x 2 IN AND OUT OF PT. HE REPORTS HE DROVE HIMSELF HERE TODAY. Sensory deficit: DECREASED LIGHT TOUCH SENSATION OF L ANTERIOR THIGH COMPARED TO L BUT OTHERWISE ILDA LE LIGHT TOUCH SENSATION GROSSLY INTACT AND SYMETRICAL. ROM deficit: ILDA LE HIP FLEXOR, HS AND GASTROC SOLEUS COMPLEX TIGHTNESS. Motor deficit: ILDA LE WEAKNESS LEFT > RIGHT. R LE: HIP 4-/5, KNEE 4-/5, ANKLE 4/5. L LE: HIP 3+/5, KNEE 3+/5, ANKLE 4-/5. Lumbar mvmt loss: NT Core strength: POOR. Palpation: LUMBAR INCISION LOOKS GOOD WITHOUT ANY SIGNS OF INFECTION. OTHER: PATIENT IS UNSAFE WITH CANE/WALKING STICK AND THIS PT RECOMMENDED WALKER FOR SAFETY BUT PATIENT DECLINES STATING HE FEELS SAFE WITH THE WALKING STICK. Balance/Special Test Scores Oswestry Low Back Score: 26 TUG Test Time Seconds: 17.93 30 Second Chair Rise Test Seconds: 7 Goals Goal 1:: DECREASE C/O LOW BACK PAIN AND SPASMS Goal Time Frame: 8-12 Weeks Goal 2:: IMPROVE PERSONAL CARE, LIFTING, WALKING, STANDING, SOCIAL LIFE AND HOMEMAKING FUNCTION Goal Time Frame: 8-12 Weeks Goal 3:: PATIENT WILL BE INDEP WITH HOME AND/OR GYM EX PROGRAMS FOR CONTINUED IMPROVEMENT ONCE FORMAL PHYSICAL THERPAY CONCLUDES. Goal Time Frame: 8-12 Weeks Anticipated Interventions Patient/Client Instruction: Educate patient on: Condition, Plan of Care and Risk Factors For the Purpose of:: To improve self management Therapeutic Exercise to Include: Strength training, Balance training, Body mechanics, Postural training, Flexibilty training, Gait and locomotor training, Neuromotor development and Dynamic Lumbar Stabilization For the Purpose of:: To decrease pain, To increase ROM, To improve muscle performance and motor function, To increase tolerance to activity/condition/position, To improve ability of physical actions for home/community/work/leisure and To improve gait and locomotor functions Text: Thank you for the opportunity to evaluate your patient. For Medicare and Medicare HMO plans, please review the plan of care and approve it. It will need to be FAXED BACK to us at [phone] for Medicare purposes. For Medicare only, by signing this I certify the plan of care. Please let me know if there are questions or concerns regarding this plan of care. Physician Signature: Date:
--- NOTE | 2023-02-19 13:35 | HP.PTREVAL ---
Re-Evaluation Intro: DOE CARMEN, It has been my pleasure to treat PEDRO ORTIZ over the last 10 visits for LUMBAR STENOSIS W/NEUROGENIC CLAUDICATION. LUMBAR FUSION L2-S1 NOVEMBER 13 2022. Please see the progress note below for an update on the physical therapy plan of care! Subjective Subjective: PATIENT REPORTS HIS L LEG HAS MORE MOBILITY AND DOESN'T HAVE THE PAIN THAT IT DID. PATIENT ALSO REPORTS HIS LOW BACK PAIN IS BETTER. PATIENT REPORTS THAT HE IS ABLE TO TAKE A SHOWER, GET DRESSED AND JUST WALK THROUGH THE HOUSE BETTER SINCE STARTING PT. FOLLOW UP PENDING WITH SURGEON MAR 18 2023. PATIENT REPORTS HE IS NOT SUPPORSED TO BEND, LIFT OR TWIST UNTIL HE SEES THE SURGEON AGAIN. DESPITE THIS HE REPORTS HE IS DEFINATELY DOING SOME OF IT BECAUSE HE HAS TO. Objective Objective/Function: PATIENT WAS SEEN TODAY FOR RE-ASSESSMENT OF PROGRESS TOWARD THE SET PT GOALS AND THE NEED FOR FURTHER PHYSICAL THERAPY VS READINESS FOR DISCHARGE. UPON EXAM TODAY: THIS PATIENT AMBULATES INDEP'LY INTO PT WITH A WALKING STICK WITH R LE BUCKLING MULTIPLE TIMES BUT PATIENT MAINTAINS HIS BALANCE INDEP'LY EACH TIME. HE AMBULATED X 300 FEET WITHOUT STOPPING x 2 IN AND OUT OF PT. HE REPORTS HE DROVE HIMSELF HERE TODAY. Sensory deficit: ILDA LE LIGHT TOUCH SENSATION GROSSLY INTACT AND SYMETRICAL NOW. ROM deficit: ILDA LE HIP FLEXOR, HS AND GASTROC SOLEUS COMPLEX TIGHTNESS. Motor deficit: ILDA LE WEAKNESS LEFT > RIGHT. R LE: HIP 4/5, KNEE 4/5, ANKLE 4/5. L LE: HIP 4-/5, KNEE 4-/5, ANKLE 4/5. Lumbar mvmt loss: NT Core strength: FAIR PATIENT REPORTS HE DOES NOT ALWAYS USE HIS WALKING STICK AND WALKS AWAY FROM IT IN THE CLINIC TOO. THIS PT RECOMMENDS USE OF CANE AT ALL TIMES. Plan Plan Plan: CONTINUE PT 2X'S/WK X 4-6 WKS. *GAIT BELT FOR SAFETY - PATIENT DECLINED* *LUMBAR STABILIZATION WITH NEUTRAL SPINE ONLY - NO BENDING OR TWISTING* *LUNG TRANSPLANT PATIENT 2020* GAIT AND BALANCE TRAINING. ILDA LE ROM, STRETCHING AND STRENGTHENING. FOCUS ON LE STRENGTHENING AND CORE STABILIZATION. WALKER RECOMMENDED FOR SAFETY. Balance/Gait/Functional tests Balance/Special Test Scores Oswestry Low Back Score: 17 TUG Test Time Seconds: 13.44 Tug Test: <20 sec.=mostly independent 30 Second Chair Rise Test Seconds: 10 Goals Goals Goal 1:: DECREASE C/O LOW BACK PAIN AND SPASMS Goal Time Frame: 8-12 Weeks Goal Progress: Progressing Goal 2:: IMPROVE PERSONAL CARE, LIFTING, WALKING, STANDING, SOCIAL LIFE AND HOMEMAKING FUNCTION Goal Time Frame: 8-12 Weeks Goal Progress: Progressing Goal 3:: PATIENT WILL BE INDEP WITH HOME AND/OR GYM EX PROGRAMS FOR CONTINUED IMPROVEMENT ONCE FORMAL PHYSICAL THERPAY CONCLUDES. Goal Time Frame: 8-12 Weeks Goal Progress: Progressing Anticipated Interventions Anticipated Interventions Patient/Client Instruction: Educate patient on: Condition, Plan of Care and Risk Factors For the Purpose of:: To improve self management Therapeutic Exercise to Include: Strength training, Balance training, Body mechanics, Postural training, Flexibilty training, Gait and locomotor training, Neuromotor development and Dynamic Lumbar Stabilization For the Purpose of:: To decrease pain, To increase ROM, To improve muscle performance and motor function, To increase tolerance to activity/condition/position, To improve ability of physical actions for home/community/work/leisure and To improve gait and locomotor functions Re-Evaluation Ending Re-evaluation ending: Please do not hesitate to contact me at [phone] by phone or if you have questions or concerns regarding this new plan of care! Sincerely, Hilda San, PT, Cert MDT
--- NOTE | 2023-03-23 13:35 | HP.PTDCSUM ---
Discharge Summary D/C summary: It has been my pleasure to treat PEDRO ORTIZ referred by DOE CARMEN, with the diagnosis of LUMBAR STENOSIS W/NEUROGENIC CLAUDICATION. LUMBAR FUSION L2-S1 NOVEMBER 13 2022 for a total of 18 visit(s). Discharge Date: 03/23/23 Please see the following information for a summary of their discharge status. Subjective Subjective: PATIENT REPORTS WHAT HE CAN DO NOW COMPARED TO HIS FIRST DAY OF PT IS PRETTY REMARKABLE. HE REPORTS HE IS A LOT BETTER AND FEELS READY TO BE DISCHARGED. HE REPORTS HE HAS A LOT MORE CONFIDENCE NOW. NO FALLS. NO FEAR OF FALLING. NO PAIN SITTING. STANDING IS MY WORST ENEMY. UP TO 8/10 LBP AT WORST NOW - MUSCLE SPASMS. PAIN GOES AWAY PRETTY QUICKLY IN SITTING. I HARDLY EVER TAKE A PAIN PILL. NO LEG PAIN. INTERMITTENT THING NUMBNESS AND WEAKNESS. RELEASED BY SURGEON FOR ACTIVITY TOLERATED. Pain LOW BACK: Pain Intensity (Out of 10): 3 Overall Improvement % Improvement: 70 Objective Objective/Function: PATIENT WAS SEEN TODAY FOR RE-ASSESSMENT OF PROGRESS TOWARD THE SET PT GOALS AND THE NEED FOR FURTHER PHYSICAL THERAPY VS READINESS FOR DISCHARGE. UPON EXAM TODAY: THIS PATIENT AMBULATES INDEP'LY INTO PT WITH A WALKING STICK WITH R LE BUCKLING SEVERAL TIMES BUT PATIENT MAINTAINS HIS BALANCE INDEP'LY EACH TIME. HE AMBULATED X 200 FEET WITHOUT STOPPING x 2 IN AND OUT OF PT. PATIENT IS APPROPRIATE FOR AND AGREEABLE TO DISCHARGE. HE IS INDEP WITH A GYM EX PROGRAM HE PLANS TO CONTINUE - SEE BELOW. Sensory deficit: ILDA LE LIGHT TOUCH SENSATION GROSSLY INTACT AND SYMETRICAL. ROM deficit: ILDA LE HIP FLEXOR, HS AND GASTROC SOLEUS COMPLEX TIGHTNESS. Motor deficit: ILDA LE WEAKNESS LEFT > RIGHT. R LE: HIP 5/5, KNEE 5/5, ANKLE 5/5. L LE: HIP 4/5, KNEE 4/5, ANKLE 4/5. GYM PROGRAM: NuStep: L3 5 minutes Standing Cable Row (10): 40# 2x15 Cable Pallof Press (10): 10# 2x10 ea/side Lat Pulldown (12): 45# 2x15 Leg Press (5): 75# [id number] 3/Sled 4 Hip Abduction (4): 40# 3x10 Goals Goal 1:: DECREASE C/O LOW BACK PAIN AND SPASMS Goal Progress: Goal Met Goal 2:: IMPROVE PERSONAL CARE, LIFTING, WALKING, STANDING, SOCIAL LIFE AND HOMEMAKING FUNCTION Goal Progress: Goal Met Goal 3:: PATIENT WILL BE INDEP WITH HOME AND/OR GYM EX PROGRAMS FOR CONTINUED IMPROVEMENT ONCE FORMAL PHYSICAL THERPAY CONCLUDES. Goal Progress: Goal Met Plan Plan: D/C D/C Information d/c sentence: If there are questions or concerns regarding this patient's physical therapy, please feel free to call me at [phone]. Thank you for the referral of this patient. Sincerely, Hilda San, PT, Cert MDT Balance/Gait/Functional tests Balance/Special Test Scores Oswestry Low Back Score: 16 TUG Test Time Seconds: 10.25 Tug Test: <20 sec.=mostly independent 30 Second Chair Rise Test Seconds: 12 Improvement % Improvement: 70
== END 2023-03-23 13:49 | disposition home or self-care (01) ==
LOC: PT 13:00
PROVIDERS: PCP Nurse Practitioner Family
DX: M48.062 Spinal stenosis, lumbar region with neurogenic claudication (principal)
CPT/HCPCS: 97110; 97162; 97164; 97530

== ENCOUNTER → 2023-03-31 | Outpatient (CLI) | payer OTHER, SELFPAY ==
--- NOTE | 2023-03-31 14:24 | SPIR_ITS ---
Spirometry PFT Testing Spirometry PFT Testing: COMPLETE PULMONARY FUNCTION TEST INTERPRETATION Brief HPI: Patient is a 72-year-old male, currently under the care of Dr. Ortega, who presents to [facility] for complete pulmonary function tests secondary to diagnosis of status post transplant. Respiratory therapist reports good effort and reproducible results. Interpretation: Forced expiration spirometry shows a mild large airways obstructive ventilatory defect with an FEV1 of 75% predicted. There was no bronchodilator response tested. Spirograms are of good quality and plateau [slowly, indicating slowly emptying areas of the lungs]. The respiratory flow volume loop shows [decreased expiratory flow rates at all lung volumes consistent with airway obstruction]. [Compared to previous pulmonary function tests from] 01/02/2023, [there has been no significant change a significant change in]. Impression: Mild large airways obstructive ventilatory defect with no change compared to previous
== END | disposition home or self-care (01) ==
LOC: PSN 12:19
PROVIDERS: PCP Nurse Practitioner Family; Referring Provider Internal Medicine; Visit Provider Internal Medicine
DX: Z94.2 Lung transplant status (principal); Z48.24 Encounter for aftercare following lung transplant
CPT/HCPCS: 94010

== ENCOUNTER 2023-04-13 11:24 | Outpatient (RCR) | payer OTHER, SELFPAY ==
[2023-04-10 00:47] VITALS: BMI 31.6
[2023-04-13 11:54] LABS: Absolute Lymphocyte Count 1.15 X10^3/uL (0.83-4.51); Absolute Neutrophil Count 3.7 X10^3/uL (2.0-7.7); Basophil# 0.04 X10^3/uL; Basophil% 0.7 % (0-1); Eosinophil# 0.11 X10^3/uL; Hematocrit 40.7 % (40-54); Hemoglobin 12.4 g/dL (13.0-16.5); Lymphocyte # 1.15 X10^3/ul (0.83-4.51); Lymphocyte % 21.1 % (19-41); Mean Corp Hgb Conc 30.5 g/dL (32-36); Mean Corpuscular Hgb 28.1 pg (27.0-32.0); Mean Corpuscular Volume 92.1 fL (80-94); Mean Platelet Vol. 9.5 fl (6.2-12.0); Monocyte# 0.46 X10^3/uL; Monocyte% 8.4 % (0-10); NRBC Flagged by Analyzer 0 % (0-5); Neutrophil # 3.68 X10^3/uL (2.7-7.7); Neutrophil % 67.6 % (47-70); Platelet Count 173 K/mm3 (150-450); RBC Distribution Width CV 13.6 % (11.6-14.6); RBC Distribution Width SD 46.4 fl (35.1-43.9); Red Blood Count 4.42 M/mm3 (4.6-6.2); White Blood Count 5.5 K/mm3 (4.4-11.0)
[2023-04-13 12:11] LABS: ALB/GLOB Ratio 1.3 RATIO (0.9-2.4); AST(SGOT) 8 U/L (15-37); Alanine Aminotransfer ALT/SGPT 18 U/L (16-61); Albumin, Serum 3.9 g/dL (3.2-5.0); Alkaline Phosphatase 61 U/L (45-117); Anion Gap 9 (5-15); BUN 27 mg/dL (7-18); Calcium,Total 9.6 mg/dL (8.5-10.1); Chloride 106 mmol/L (98-107); Creatinine, Serum 1.59 mg/dL (0.70-1.30); EST Glomerular Filtration Rate 45 mL/min (>60); Est Glom Filt Rate - Afr Amer 55 mL/min (>60); GGTP 16 U/L (15-85); Globulin 2.9 g/dL (2.2-4.2); Glucose 107 mg/dL (74-106); Magnesium 1.8 mg/dL (1.6-2.6); Phosphorus 2.5 mg/dL (2.5-4.9); Potassium 4.3 mmol/L (3.5-5.1); Protein, Total 6.8 g/dL (6.4-8.2); Sodium Level 141 mmol/L (136-145)
[2023-04-13 14:13] LABS: Hemoglobin A1c 5.6 % (3.8-5.6)
[2023-04-16 16:10] LABS: Immunoglobulin A 168 mg/dL (61-437); Immunoglobulin G 418 mg/dL (603-1613); Immunoglobulin M 36 mg/dL (15-143); Tacrolimus (FK506) 4.7 ng/mL (2.0-20.0)
== END 2023-05-10 23:59 ==
LOC: PAVLAB 11:24
PROVIDERS: PCP Nurse Practitioner Family
DX: D84.9 Immunodeficiency, unspecified (principal); R79.9 Abnormal finding of blood chemistry, unspecified; Z94.2 Lung transplant status; Z51.81 Encounter for therapeutic drug level monitoring; Z79.899 Other long term (current) drug therapy
CPT/HCPCS: 36415; 80053; 80197; 82248; 82784; 82977; 83036; 83735; 84100; 85025; 87497

== ENCOUNTER 2023-04-24 13:21 | Outpatient (CLI) | payer MEDICARE, BC, SELFPAY ==
[2023-04-24 13:33] VITALS: BP 125/71; PULSE 67; RESP 16; TEMP 36.4; O2SAT 97; BMI 33.4
[2023-04-24] MEDS: DENOSUMAB 60 MG/ML SC (13:35)
== END 2023-04-24 13:22 | disposition home or self-care (01) ==
PROVIDERS: PCP Nurse Practitioner Family; Referring Provider Internal Medicine Endocrinology, Diabetes & Metabolism; Visit Provider Internal Medicine Endocrinology, Diabetes & Metabolism
DX: M81.0 Age-related osteoporosis without current pathological fracture (principal)
CPT/HCPCS: 96372; J0897

== ENCOUNTER → 2023-04-28 | Outpatient (CLI) | payer OTHER, SELFPAY ==
--- NOTE | 2023-04-29 15:32 | SPIR ---
Spirometry PFT Testing Spirometry PFT Testing: COMPLETE PULMONARY FUNCTION TEST INTERPRETATION Brief HPI: Patient is a 72-year-old male, currently under the care of Dr. Ortega, who presents to [facility] for complete pulmonary function tests secondary to diagnosis of status post transplant. Respiratory therapist reports good effort and reproducible results. Interpretation: Forced expiration spirometry shows a mild large airways obstructive ventilatory defect with an FEV1 of 78% predicted. There is no bronchodilator response tested. Spirograms are of good quality and plateau slowly, indicating slowly emptying areas of the lungs. The respiratory flow volume loop shows decreased expiratory flow rates at all lung volumes consistent with airway obstruction. Compared to previous pulmonary function tests from 03/31/2023, there has been no significant change. Impression: Mild obstructive ventilatory defect with no change compared to previous
== END | disposition home or self-care (01) ==
LOC: PSN 12:26
PROVIDERS: PCP Nurse Practitioner Family; Referring Provider Internal Medicine; Visit Provider Internal Medicine
DX: Z94.2 Lung transplant status (principal); Z48.24 Encounter for aftercare following lung transplant
CPT/HCPCS: 94010

== ENCOUNTER → 2023-05-19 | Outpatient (CLI) | payer OTHER, SELFPAY ==
--- NOTE | 2023-05-19 12:36 | BD_ITS ---
STUDY: DUAL ENERGY X-RAY ABSORPTIOMETRY / DXA REASON FOR EXAM: Male, 72 years old. M810 TECHNIQUE: Bone Mineral Density (BMD) measurements of both forearms were obtained. COMPARISON: None. FINDINGS: Right Forearm: g/cm2 (0.741) / T-score (1.0) / Z-score (2.5) Left Forearm: g/cm2 (0.739) / T-score (1.0) / Z-score (2.5) BD/Dexa Bone Density/Append Skel IMPRESSION: The patient is considered normal as outlined below according to World [employer] Organization (WHO) criteria with a low fracture risk. Reference Information: The T-score is the number of standard deviations above or below the standard which is normal for young adults at their peak bone mineral density. The World Health Organization (WHO) interprets the T-scores as follows: Above -1 Normal bone density Between -1 and -2.5 Osteopenia Equal to / or below -2.5 Osteoporosis As a practical clinical guideline, osteopenia may be graded as follows: Mild -1 through -1.5 Moderate -1.6 through -2.0 Severe -2.1 through -2.4 The Z-score is the number of standard deviations above or below age-matched controls. A Z-score of less than -1.5 would be considered abnormal. References: 1. NIH Osteoporosis and Related Bone Diseases www osteo.org 2. International Society for Clinical Densitometry www iscd.org 3. National Osteoporosis Foundation www nof.org Electronically Signed: Brad Yi MD at 9:02 EST ,
--- OUTSIDE RECORDS SUMMARY | 2023-05-19 12:54 | XMS RPT_ITS | CCD ---
Author Name Unknown Address [address] [place] [address] Organization [facility] Care Team Providers Care 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 Name Role Phone GUERRERO BATEMAN MD Primary Care Physician Guerrero Bateman MD Primary Care Provider [phone] Guerrero Bateman MD Primary Care Provider [phone] Unavailable Primary Care Provider UnavailDR ELISABETH Ashley MD Attending Unavailable GUERRERO BATMEAN MD Primary Care Unavailable DR ELISABETH QUIJANO MD Attending Unavailable GUERRERO BATEMAN MD Primary Care Unavailable DR ELISABETH QUIJANO MD Attending Unavailable GUERRERO BATEMAN MD Primary Care Unavailable DR ELISABETH QUIJANO MD Attending Unavailable GUERRERO BATEMAN MD Primary Care Unavailable NIKOLAS MELENDEZ MD Attending Unavailable GUERRERO BATEMAN MD Primary Care Unavailable DR ELISABETH QUIJANO MD Attending Unavailable GUERRERO BATEMAN MD Primary Care Unavailable DR ELISABETH QUIJANO MD Attending Unavailable GUERRERO BATEMAN MD Primary Care Unavailable STEPHIE OSMAN Attending GUERRERO Monk MD Primary Care Unavailable DR ELISABETH QUIJANO MD Attending Unavailable GUERRERO BATEMAN MD Primary Care Unavailable DR ELISABETH QUIJANO MD Attending Unavailable GUERRERO BATEMAN MD Primary Care Unavailable DR ELISABETH QUIJANO MD Attending Unavailable GUERRERO BATEMAN MD Primary Care Unavailable Guerrero Bateman MD Primary Care Provider Guerrero Bateman MD Primary Care Provider [phone] Ami Stratton Primary Care Provider [phone] Farhana Gray Primary Care Provider ROMULO JAIMES Attending Unavailable NANCYYS, AMI Primary Care Unavailable NISA CARMEN Attending Unavailable NISA CARMEN Referring Unavailable NANCYYS, AMI Primary Care Unavailable ROXY RANGEL Attending Unavailable ROXY RANGEL Referring Unavailable MALYS, AMI Primary Care Unavailable ROMULO JAIMES Attending Unavailable ROMULO JAIMES Attending Unavailable MALYS, AMI Primary Care Unavailable ROXY RANGEL Attending Unavailable NANCYYS, AMI Primary Care Unavailable ROMULO JAIMES Admitting Unavailable FIONA, ROMULO Attending Unavailable NANCYYS, AMI Primary Care Unavailable ROMULO JAIMES Attending Unavailable MALYS, AMI Primary Care Unavailable TONO, GUERRERO Primary Care Unavailable CHANDAN DEE Referring Unavailable ED ORTEGA P Attending Unavailable CAROL RENEE Attending Unavailable TONO, GUERRERO Primary Care Unavailable ROSENHECK, ED P Referring Unavailable TONO, GUERRERO Primary Care Unavailable ROSENHECK, ED P Referring Unavailable ROSENHECK, ED P Attending Unavailable TONO, SUSSEX Primary Care Unavailable ROSENHECK, ED P Referring Unavailable ROSENHECK, ED P Attending Unavailable [facility], SUSSEX Primary Care Unavailable ROSENHECK, ED P Referring Unavailable ROSENHECK, ED P Attending Unavailable ROSENHECK, ED P Attending Unavailable [facility], SUSSEX Primary Care Unavailable ROSENHECK, ED P Referring Unavailable ROSENHECK, ED P Attending Unavailable [facility], SUSSEX Primary Care Unavailable ROSENHECK, ED P Referring [facility] Primary Care Unavailable WILFREDO EASLEY Attending Unavailable WILFREDO EASLEY Referring Unavailable CAROL RENEE Attending Unavailable [facility] Primary Care Unavailable CHANDAN DEE Referring Unavailable [facility] Primary Care Unavailable ROSENHECK, ED P Referring Unavailable ROSENHECK, ED P Attending Unavailable [facility] Primary Care Unavailable [facility] Primary Care Unavailable CHANDAN DEE Referring Unavailable ACACIA ORTEGAIN P Attending Unavailable CAROL RENEE Attending Unavailable [facility] Primary Care Unavailable LUIZ, CHANDAN Referring Unavailable TONO, SUSSEX Primary Care Unavailable LUIZ, CHANDAN Referring Unavailable ROSENHECK, ED P Attending Unavailable Medications Current Medications Medication Drug Class(es) Dates Sig (Normalized) Sig (Original) Albuterol (20 sources) beta2-Adrenergic Agonist Start: 10-16-2015 take 1 dose by inhalation every four hours as needed Proventil (2.5 mg/3 mL) inhalation solution Dose : 2.5 mg = 3 mL, Inhalation, q4h, PRN shortness of breath or wheezing, 0 Refill(s) Start Date: 10/16/15 Status: Ordered Completed/Discontinued Medications Medication Drug Class(es) Dates Sig (Normalized) Sig (Original) acetaminophen 325 mg oral tablet (20 sources) Start: 11-13-2022 End: 11-15-2022 take 1 tablet by mouth every four hours acetaminophen (Tylenol) tablet 650 mg Problems Active Problems Problem Classification Problem Date Documented Da te Episodic/Chronic Anxiety disorders (20 sources) Anxiety; Translations: [Anxiety disorder, unspecified] Onset: 06-08-2020 06-08-2020 Chronic Chronic obstructive pulmonary disease and bronchiectasis (20 sources) Chronic bronchitis; Translations: [Chronic obstructive lung disease] Onset: 05-30-2020 05-16-2014 Chronic Past or Other Problems Problem Classification Problem Date Documented Date Episodic/Chronic Bacterial infection; unspecified site (20 sources) Infection due to Streptococcus group D; Translations: [Streptococcal infection, unspecified site] Onset: 06-05-2020 Resolved: 07-08-2020 07-08-2020 Episodic Diabetes mellitus without complication (20 sources) Metabolic stress hyperglycemia; Translations: [Hyperglycemia, unspecified] Onset: 06-05-2020 06-05-2020 Episodic Genitourinary symptoms and ill-defined conditions (20 sources) Sensation as if bladder still full; Translations: [Retention of urine] Onset: 06-06-2020 Resolved: 06-07-2020 11-02-2015 Episodic Malaise and fatigue (20 sources) Physical deconditioning; Translations: [Other malaise] Onset: 10-27-2019 06-05-2020 Episodic Other aftercare (2 sources) Other career development coordinator/teacher (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) drug therapy; Translations: [Other career development coordinator/teacher (current) drug therapy] Onset: 11-03-2022 Episodic Pneumonia (except that caused by tuberculosis or sexually transmitted disease) (20 sources) Pneumonia due to aerobic bacteria; Translations: [Pneumonia due to Escherichia coli] Onset: 06-05-2020 Resolved: 07-08-2020 07-08-2020 Episodic Residual codes; unclassified (14 sources) Other specified personal risk factors, not elsewhere classified; Translations: [Other specified personal history presenting hazards to health] Onset: 01-15-2022 01-15-2022 Episodic Spondylosis; intervertebral disc disorders; other back problems (20 sources) Backache; Translations: [Sciatica] Onset: 05-09-2021 05-16-2014 Episodic Results Test Name Value Interpretation Reference Range Facil ity Vital Signs Date Time Vital Sign Value Performing Clinician Bonnie juares 04-22-2023 08:07-0500 Body height 172.7 cm Wilfredo Easley MD Work Phone: [facility] 04-22-2023 08:07-0500 Body mass index (BMI) [Ratio] 37.86 kg/m2 Wilfredo Easley MD Work Phone: [facility] 04-22-2023 08:07-0500 Body weight 112.95 kg Wilfredo Easley MD Work Phone: [facility] 04-22-2023 08:07-0500 Diastolic blood pressure 74 mm[Hg] Wilfredo Easley MD Work Phone: [facility] 04-22-2023 08:07-0500 Heart rate 86 /min Wilfredo Easley MD Work Phone: [facility] 04-22-2023 08:07-0500 Systolic blood pressure 124 mm[Hg] Wilfredo Easley MD Work Phone: [facility] 03-18-2023 15:03-0500 Body height 172.7 cm Romulo Jaimes MD Work Phone: [facility] 03-18-2023 15:03-0500 Body mass index (BMI) [Ratio] 36.19 kg/m2 Romulo Jaimes MD Work Phone: [facility] 03-18-2023 15:03-0500 Body weight 107.96 kg Romulo Jaimes MD Work Phone: [facility] 03-18-2023 15:03-0500 Diastolic blood pressure 89 mm[Hg] Romulo Jaimes MD Work Phone: [facility] 03-18-2023 15:03-0500 Heart rate 75 /min Romulo Jaimes MD Work Phone: [facility] 03-18-2023 15:03-0500 Systolic blood pressure 138 mm[Hg] Romulo Jaimes MD Work Phone: [facility] 02-23-2023 12:50-0400 Body height 172.7 cm Wilfredo Easley MD Work Phone: [facility] 02-23-2023 12:50-0400 Body mass index (BMI) [Ratio] 37.86 kg/m2 Wilfredo Easley MD Work Phone: [facility] 02-23-2023 12:50-0400 Body temperature 97.81 [degF] Wilfredo Easley MD Work Phone: [facility] 02-23-2023 12:50-0400 Body weight 112.95 kg Wilfredo Easley MD Work Phone: [facility] 02-23-2023 12:50-0400 Diastolic blood pressure 92 mm[Hg] Wilfredo Easley MD Work Phone: [facility] 02-23-2023 12:50-0400 Heart rate 90 /min Wilfredo Easley MD Work Phone: [facility] 02-23-2023 12:50-0400 Respiratory rate 16 /min Wilfredo Easley MD Work Phone: [facility] 02-23-2023 12:50-0400 SaO2% (BldA) [Mass fraction] 93 % Wilfredo Easley MD Work Phone: [facility] Encounters Encounter Date Encounter Type Care Provider Facility Start: 04-22-2023 ambulatory [facility] Facility:[facility] Start: 04-22-2023 End: 04-22-2023 Subsequent hospital visit by physician Wilfredo Easley MD Work Phone: [facility] [place] Start: 03-18-2023 End: 03-18-2023 ambulatory ROMULO JAIMES [facility] Start: 03-18-2023 End: 03-18-2023 Postop follow up visit related to original px Romulo Jaimes MD Work Phone: [facility] Procedures Date Procedure Procedure Detail Performing Clinician Start: 04-22-2023 Myocardial spect mul tiple studies Wilfredo Easley MD Work Phone: Start: 02-23-2023 Spmtry w/vc expirato ry rene w/wo mxml vol vntj Ed Ortega DO Work Phone: Start: 02-23-2023 Radiologic exam ches t 2 views Ed Ortega DO Work Phone: Start: 11-15-2022 Basic metabolic pane l calcium total Wilfredo Rosales MD Work Phone: Start: 11-14-2022 Basic metabolic pane l calcium total Nisa Carmen [employer] - [employer]ELESAL[employer] PROFESSIONAL Work Phone: Start: 11-13-2022 End: 11-13-2022 FL GUIDANCE OR USE ONLY - NON-RESULTABLE Romulo Jaimes MD Work Phone: Start: 11-13-2022 OXYGEN THERAPY Jing alicea [employer] PELLE[employer] - CURRENCY COUNTER Work Phone: Start: 11-13-2022 End: 11-13-2022 Arthrodesis posterior/posterolateral lumbar Romulo Jaimes MD Work Phone: Start: 11-03-2022 Spmtry w/vc expirato ry rene w/wo mxml vol vntj Ed Ortega DO Work Phone: Start: 11-03-2022 Radiologic exam ches t 2 views Ed Ortega DO Work Phone: Start: 07-31-2022 PM Inj Spine L/S [facility] [address] ELISABETH QUIJANO MD Plan of Treatment Date Care Activity Detail Author Start: 05-14-2030 DTaP/Tdap/Td Vaccine s (2 - Td or Tdap) DTaP/Tdap/Td Vaccines (2 - Td or Tdap) [facility] Start: 05-14-[address] [facility] Start: 04-09-2026 Screening for malign ant neoplasm of colon [facility] Start: 02-08-2026 Screening for malign ant neoplasm of colon COLORECTAL CANCER SCREENING DISCUSSION [facility] Immunizations Immunization Date Immunization Notes Care Provider Ratna estrella 02-05-2023 Influenza Vaccine, Quadrivalent, Adjuvanted Ed Ortega DO Work Phone: [facility] 01-29-2023 COVID-19 MRNA (PFIZE R) 12+YR, 30 MCG/0.3 ML () Ed Ortega DO Work Phone: [facility] 01-23-2023 RSV, RECOMBINANT, PROTEIN SUBUNIT RSVPREF, ADJUVANT RECONSTITUTED, 0.5 ML, PF (AREXVY) Ed Ortega DO Work Phone: [facility] 02-03-2022 COVID-19 bivalent vaccine (Moderna) 12yr+, 50mcg/0.5mL Ed Ortega DO Work Phone: [facility] 01-30-2022 influenza, high dose seasonal, preservative-free Ed Ortega DO Work Phone: [facility] 01-30-2022 influenza virus vacc ine, unspecified formulation Romulo Jaimes MD Work Phone: [facility] 06-28-2021 COVID-19 vaccine, mR MANJINDER, Moderna, booster 0.25 ML Ed Ortega DO Work Phone: [facility] 04-17-2021 zoster vaccine recombinant Ed Ortega DO Work Phone: [facility] 02-07-2021 zoster vaccine recombinant Ed Ortega DO Work Phone: [facility] 02-04-2021 influenza virus vacc ine, whole virus Ed Ortega DO Work Phone: [facility] 02-04-2021 influenza virus vacc ine, unspecified formulation Carol Renee MD Work Phone: [facility] 12-24-2020 COVID-19 vaccine, mR MANJINDER, Moderndio 0.5 ML Ed Ortega DO Work Phone: [facility] 08-06-2020 SARS-COV-2 (COVID-19 ), Mrna, Lnp-s, Pf, 100 Mcg/ 0.5 Ml Dose AUTUMN Renee MD Work Phone: [facility] 07-09-2020 SARS-COV-2 (COVID-19 ), Mrna, Lnp-s, Pf, 100 Mcg/ 0.5 Ml Dose AUTUMN Renee MD Work Phone: [facility] 05-29-2020 hepatitis B vaccine, adult dosage Wilfredo Easley MD Work Phone: [facility] 05-29-2020 hepatitis B vaccine, pediatric or pediatric/adolescent dosage Carol Reene MD Work Phone: [facility] 05-14-2020 hepatitis B vaccine, adult dosage Carol Renee MD Work Phone: [facility] 05-14-2020 tetanus toxoid, redu ayana diphtheria toxoid, and acellular pertussis vaccine, adsorbed Carol Renee MD Work Phone: [facility] 05-07-2020 hepatitis B vaccine, adult dosage Carol Renee MD Work Phone: [facility] 04-30-2020 hepatitis A vaccine, adult dosage Carol Renee MD Work Phone: [facility] 01-31-2020 influenza virus vacc ine, whole virus Carol Renee MD Work Phone: [facility] 01-31-2020 influenza, seasonal, injectable, preservative free Carol Renee MD Work Phone: [facility] 01-31-2020 influenza virus vacc ine, unspecified formulation Carol Renee MD Work Phone: [facility] 02-08-2019 influenza, seasonal, injectable, preservative free Carol Renee MD Work Phone: [facility] 01-03-2019 pneumococcal polysaccharide vaccine, 23 valent Carol Renee MD Work Phone: [facility] 02-11-2017 influenza, injectabl e, quadrivalent, contains preservative Carol Renee MD Work Phone: [facility] 02-11-2017 influenza, injectabl e, quadrivalent, preservative free Carol Renee MD Work Phone: [facility] 02-11-2017 Seasonal trivalent influenza vaccine, adjuvanted, preservative free Carol Renee MD Work Phone: [facility] 02-19-2016 influenza, seasonal, injectable, preservative free Carol Renee MD Work Phone: [facility] 12-22-2015 pneumococcal conjuga te vaccine, 13 valent Carol Renee MD Work Phone: [facility] Payers Date Payer Category Payer Unknown [id number] 2022 Unknown [id number] 2020 Medicare MEDICARE MEDICAR E A AND B [id number] 2020-Present [address] [place] [address] [id number] 2020 Medicare MEDICARE MEDICAR E PART A AND B [id number] 2020-Present [address] [place] [address] Medicare [id number] 2020 Medicare [id number] 2020 Unknown [id number] 2020 Unknown [facility] [id number] 2020-Present [address] [place] [address] [id number] 2020 Unknown [id number] .[id number] 2020 Unknown [id number] 04 2020 Unknown GENERIC PAYOR GE NERIC PLAN [id number] 2020-Present [address] [place] [address] [id number] 2016 Unknown [id number] 1950 Unknown [id number] 2.840.1.866582.3.579.2.6 1948 Unknown [id number] .840.1.689716.3.579.2.6 1948 Unknown [id number] 2.16.840.1.949129.3.579.2.6 1948 Unknown [id number] 2.16.840.1.848016.3.579.2.6 1948 Unknown [id number] 2.16.840.1.549813.3.579.2.6 1948 Unknown [id number] 2.16.840.1.937319.3.579.2.6 1948 Unknown [id number] 2.16.840.1.593507.3.579.2.6 27 1948 Unknown [id number] 2.16.840.1.604816.3.579.2.6 27 1948 Unknown [id number] 2.16.840.1.102550.3.579.2.6 27 1948 Unknown [id number] 2.16.840.1.538719.3.579.2.6 27 1948 Unknown [id number] 2.16.840.1.121487.3.579.2.6 27 1948 Unknown [id number] 2.16.840.1.080604.3.579.2.5 94 1948 Unknown [id number] 2.16.840.1.090499.3.579.2.5 94 1948 Unknown [id number] 2.16.840.1.801650.3.579.2.5 94 1948 Unknown [id number] 2.16.840.1.777331.3.579.2.5 94 1948 Unknown [id number] 2.16.840.1.195132.3.579.2.5 94 1948 Unknown [id number] 2.16.840.1.904571.3.579.2.5 94 1948 Unknown [id number] 2.16.840.1.208841.3.579.2.5 94 1948 Unknown [id number] 2.16.840.1.785310.3.579.2.5 94 1948 Unknown [id number] 2.16.840.1.083816.3.579.2.5 94 1948 Unknown [id number] 2.16.840.1.350587.3.579.2.5 94 1948 Unknown [id number] 2.16.840.1.777592.3.579.2.5 94 1948 Unknown [id number] 2.16.840.1.345710.3.579.2.5 94 1948 Unknown [id number] 2.16.840.1.549295.3.579.2.5 94 Social History Date Type Detail Facility Start: 10-18-2019 End: 04-22-2023 Ex-smoker (finding) [facility] Sex Assigned At Male [facility] End: 05-11-2016 History of tobacco use Current smoker [facility] End: 05-11-2016 History of tobacco use Cigarette Smoker [facility] Start: 08-17-2019 End: 04-22-2023 Tobacco use and exposure Never used [facility] Start: 12-04-2020 End: 04-22-2023 Alcohol intake Ex-drinker (finding) [facility] Start: 1950 Sex Assigned At Not on file [facility] Start: 09-07-2022 End: 12-17-2022 Exposure to SARS-CoV-2 (event) Not sure [facility] Start: 06-27-2022 End: 07-07-2022 Exposure to SARS-CoV-2 (event) Unable to assess [facility] Start: 09-17-2022 End: 03-18-2023 Alcohol intake Lifetime non-drinker (finding) [facility] Start: 07-13-2022 End: 04-22-2023 History of [address] function [facility] Start: 07-13-2022 End: 04-22-[address] [facility] Start: 10-20-2019 Gender identity Identifies as male gender (finding) [facility] Start: 10-20-2019 Sexual orientation Heterosexual (fin jimmy) [facility] Medical Equipment Procedure Code Equipment Code Equipment Origin al Text Equipment Identifier Dates Bone Bmp Putty I-Factor 5.0cc - [id number] Start: 11-13-2022 Sub [id number] Graft Dbm Benjamin Dumont - [id number] - [id number] Start: 11-13-2022 Dia Spine Lumbar [id number] - [id number] Start: 11-13-2022 Functional Status Date Assessment Result Facility 07-31-2022 Functional Status More than 8 hours [facility] 06-18-2022 Functional Status Maintained [facility] for [facility] 04-22-2022 Functional Status ID band on, Bed in low position, Wheels locked, Upper/Half-Length side-rails up, Safety level maintained, Precautions maintained [facility] 03-11-2022 Functional Status Safety level maintained [facility] 03-11-2022 Functional Status [facility] n[facility] for [facility] 01-22-2022 Functional Status Activity Bao tance Independent [facility] 01-22-2022 Functional Status Maintained, More than 8 hours [facility] 10-22-2021 Functional Status Maintained [facility] nt for Pain Management 08-15-2021 Functional Status [facility] 08-15-2021 Functional Status [facility] for [facility] Mental Status Date Assessment Result Facility 07-31-2022 Mental Status Orientation Oriented x 4 [facility] 06-18-2022 Mental Status Orientation Oriented x 4 [facility] 04-22-2022 Mental Status Orientation Oriented x 4 [facility] 03-11-2022 Mental Status Orientation Oriented x 4 [facility] 01-22-2022 Mental Status Orientation Oriented x 4 [facility] 01-22-[address] [facility] 10-22-2021 Mental Status Oriented x 4 [facility] 08-15-[address] [facility] Clinical Notes 12-04-2020 to 04-22-2023 Patient InstructionsPaul W Hartzfeld, MD - 03/18/2023 3:00 PM Ricky Muse RN - 02/23/2023 2:00 PM Radha Easley MD - 02/23/2023 2:00 PM EDTPatient InstructionsDischarge Instructions Note Date & Type Note Facility 04-22-2023 Hospital Discharge instructions Giancarlo Palacio RN - 04/22/2023 8:30 AM EST After the completion of your nuclear test at the [facility] Heart [facility], you should be aware of the following information: Other than mild fatigue and muscle soreness, there are no residual symptoms or physiological effects associated with this nuclear study. If you should feel different than normal after the test, please contact the physician who scheduled the exam. If you think this is an emergency, either dial 911 or go to the nearest emergency room. Your testing was supervised by Dr. Lindsey today. A qualified and licensed [facility] award clerk will interpret your study and a final report of the results will be forwarded to your physician within 24 hours. You will get the results of your test directly from the ordering physician or a physician on your care team. The technologist performing your exam will not give you final results. You have been administered a low dose of radioactive material that will be in your system for about three days.? This amount is approximately 5% of the limit that would require modification to your daily activities.? Because of this minimal activity, there are no restrictions with regards to exposure to other individuals, traveling, personal hygiene, or any other routine activity. If you are or , however, there are restrictions.? Please notify the technologist if this is the case. (Reference: [id number], Volume 9, Revision 2, Appendix U). If you have any questions or concerns regarding your exam, please call the [place] office at [phone], Thursday through Thursday, between the hours of 8:00 AM and 5:00 PM. For medical emergencies, please call 911 or go to your nearest emergency room. ? To Whom It May Concern: Our patient, Rickie Ortiz, was seen at The [facility] on 04/22/23 for a nuclear test of the heart. During the course of this myocardial perfusion imaging study, our patient received a radioactive isotope, technetium (Tc-99m). Tc-99m emits gamma radiation with an energy of 140 Brian and has a six hour half life. For this study, our patient received approximately 40 mCi of Tc-99m Cardiolite. The administered radioactivity will be below background levels within three days from the conclusion of the test. In the meantime, our patient may be detected as radioactive due to this study. If you have any further questions please contact our staff at [phone] Thursday through Thursday, between the hours of 8:00 AM and 5:00 PM. Everton Santana, [facility] Gallery Or Museum Guide and RSO [facility] [place] [phone] documented in this encounter [facility] 03-18-2023 History of Present illness Narrative NEUROSURGERY and SPINE POST-OP NOTE Patient Name: Rickie Otriz Patient : 1950 PCP: AMI STRATTON History of Present Illness: He is s/p L2-S1 fusion. He reports that he is doing well at this time. HE states that PT has been beneficial for his recovery. He is active daily, he does report difficulty with standing for long periods. His incision has healed well. 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 Authorizing Provider acetaminophen (Tylenol 8 Hour) 650 MG ER tablet Take 650 mg by mouth every 6 hours as needed for mild pain (1-3). Yes Historical Provider, albuterol 108 (90 Base) MCG/ACT inhaler Inhale 2 puffs every 6 hours as needed for shortness of breath. Yes Historical Provider, aspirin 81 MG EC tablet Take 81 mg by mouth daily. Yes Historical Provider, atorvastatin (Lipitor) 20 MG tablet Take 20 mg by mouth daily. Yes Historical Provider, azithromycin (Zithromax) 250 MG tablet Take by mouth three times a week. Mon, Wed., Thu. Yes Historical Provider, calcium citrate 315 mg + D2 6.25 mcg tablet Take 1 tablet by mouth in the morning and 1 tablet in the evening. 04/18/21 Yes Historical Provider, carvedilol (Coreg) 3.125 MG tablet Take 3.125 mg by mouth in the morning and 3.125 mg in the evening. 09/02/22 Yes Historical Provider, cetirizine (ZyrTEC) 10 MG tablet Take 10 mg by mouth in the morning. 05/07/22 Yes Historical Provider, Cholecalciferol (Vitamin D) 50 MCG (2000 UT) capsule Take 2,000 Units by mouth daily. Yes Historical Provider, Cyanocobalamin (B-12 Compliance Injection) 1000 MCG/ML kit Inject 1,000 mcg into the shoulder, thigh, or buttocks every 14 (fourteen) days. Yes Historical Provider, ferrous sulfate 325 (65 Fe) MG EC tablet Take 325 mg by mouth Nightly. 06/27/21 Yes Historical Provider, fludrocortisone (Florinef) 0.1 MG tablet Take 0.1 mg by mouth in the morning. 06/05/21 Yes Historical Provider, gabapentin (Neurontin) 300 MG capsule Take 300 mg by mouth 2 times daily. Yes Historical Provider, magnesium oxide (Mag-Ox) Take 400 mg by mouth in the morning and 400 mg in the evening. 04/18/21 Yes Historical Provider, Multiple Vitamins-Minerals (Therapeutic-M) tablet Take 1 tablet by mouth in the morning. 04/18/21 Yes Historical Provider, mycophenolate (Cellcept) 500 MG tablet Take 1,000 mg by mouth in the morning and 1,000 mg in the evening. 05/07/22 Yes Historical Provider, naloxone (Narcan) 4 mg/0.1 mL nasal spray Administer 1 spray (4 mg)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 Authorizing Provider acetaminophen (Tylenol 8 Hour) 650 MG ER tablet Take 650 mg by mouth every 6 hours as needed for mild pain (1-3). Historical Provider, albuterol 108 (90 Base) MCG/ACT inhaler Inhale 2 puffs every 6 hours as needed for shortness of breath. Historical Provider, aspirin 81 MG EC tablet Take 81 mg by mouth daily. Historical Provider, atorvastatin (Lipitor) 20 MG tablet Take 20 mg by mouth daily. Historical Provider, azithromycin (Zithromax) 250 MG tablet Take by mouth three times a week. Mon, Wed., Thu. Historical Provider, calcium citrate 315 mg + D2 6.25 mcg tablet Take 1 tablet by mouth in the morning and 1 tablet in the evening. 04/18/21 Historical Provider, carvedilol (Coreg) 3.125 MG tablet Take 3.125 mg by mouth in the morning and 3.125 mg in the evening. 09/02/22 Historical Provider, cetirizine (ZyrTEC) 10 MG tablet Take 10 mg by mouth in the morning. 05/07/22 Historical Provider, Cholecalciferol (Vitamin D) 50 MCG (2000 UT) capsule Take 2,000 Units by mouth daily. Historical Provider, Cyanocobalamin (B-12 Compliance Injection) 1000 MCG/ML kit Inject 1,000 mcg into the shoulder, thigh, or buttocks every 14 (fourteen) days. Historical Provider, ferrous sulfate 325 (65 Fe) MG EC tablet Take 325 mg by mouth Nightly. 06/27/21 Historical Provider, fludrocortisone (Florinef) 0.1 MG tablet Take 0.1 mg by mouth in the morning. 06/05/21 Historical Provider, gabapentin (Neurontin) 300 MG capsule Take 300 mg by mouth 2 times daily. Historical Provider, magnesium oxide (Mag-Ox) Take 400 mg by mouth in the morning and 400 mg in the evening. 04/18/21 Historical Provider, methylPREDNISolone (Medrol Dospak) 4 MG tablets Take as directed on package 11/26/22 12/26/22 Roxy Rangel PA-C Multiple Vitamins-Minerals (Therapeutic-M) tablet Take 1 tablet by mouth in the morning. 04/18/21 Historical Provider, mycophenolate (Cellcept) 500 MG tablet Take 1,000 mg by mouth in the morning and 1,000 mg in the evening. 05/07/22 Historical Provider, naloxone (Narcan) 4 mg/0.1 mL nasal spray Administer 1 spray (4 mg) into affected nostril(s) Daily as needed for opioid reversal. May repeat every 2-3 minutes if needed, alternating nostrils, until medical assistance becomes available. 11/15/22 11/15/23 Usha Hadley PA-C pantoprazole (ProtoNix) 40 MG EC tablet Take 40 mg by mouth in the morning. 05/07/22 Historical Provider, predniSONE (Deltasone) 5 MG tablet Take 5 mg by mouth in the morning. 07/07/22 Historical Provider, sulfamethoxazole-trimethoprim (Bactrim DS) 800-160 MG tablet Take 1 tablet by mouth three times a week. Thu, Thu., Thu Historical Provider, tacrolimus (Prograf) 0.5 MG capsule Take 1.5 mg by mouth 2 times daily. 07/07/22 Historical Provider, tamsulosin (Flomax) 0.4 MG 24 hr capsule TAKE TWO CAPSULES AT BEDTIME 06/25/22 Historical Provider, tiZANidine (Zanaflex) 4 MG tablet Take 1 tablet (4 mg) by mouth every 8 hours as needed for muscle spasms for up to 10 days. 11/15/22 11/25/22 Usha Hadley PA-C Allergies: Patient has no known allergies. Social History: TOBACCO: reports that he quit smoking about 6 years ago. His smoking use included cigarettes. He has a 45.00 pack-year smoking history. He has never used smokeless tobacco. ETOH: reports no history of alcohol use. RECREATIONAL DRUG USE: Social History Substance and Sexual Activity Drug Use Never Family History: Family History Problem Relation Name Age of Onset Heart failure Father Review of Systems: Review of Systems Constitutional: Negative. HENT: Negative. Eyes: Negative. Respiratory: Negative. Cardiovascular: Negative. Gastrointestinal: Negative. Endocrine: Negative. Genitourinary: Negative. Musculoskeletal: Positive for back pain. Skin: Negative. Neurological: Negative. Psychiatric/Behavioral: Negative. Physical Examination: Vitals: 12/17/22 1501 BP: (!) 137/90 Pulse: 75 Resp: 16 Temp: 36.9 C (98.5 F) Physical Exam Constitutional: Appearance: Normal appearance. HENT: Head: Normocephalic. Eyes: Extraocular Movements: Extraocular movements intact. Pupils: Pupils are equal, round, and reactive to light. Cardiovascular: Rate and Rhythm: Normal rate. Pulmonary: Effort: Pulmonary effort is normal. Abdominal: Palpations: Abdomen is soft. Musculoskeletal: General: Normal range of motion. Cervical back: Normal range of motion and neck supple. Skin: General: Skin is warm and dry. Neurological: General: No focal deficit present. Mental Status: He is alert and oriented to person, place, and time. Cranial Nerves: Cranial nerves 2-12 are intact. Motor: Motor strength is normal. Gait: Gait is intact. Deep Tendon Reflexes: Reflex Scores: Tricep reflexes are 2+ on the right side and 2+ on the left side. Bicep reflexes are 2+ on the right side and 2+ on the left side. Brachioradialis reflexes are 2+ on the right side and 2+ on the left side. Patellar reflexes are 2+ on the right side and 2+ on the left side. Achilles reflexes are 2+ on the right side and 2+ on the left side. Psychiatric: Mood and Affect: Mood normal. Judgment: Judgment normal. Neurologic Exam Mental Status Oriented to person, place, and time. Cranial Nerves Cranial nerves II through XII intact. CN III, IV, Pupils are equal, round, and reactive to light. Motor Exam Muscle bulk: normal Overall muscle tone: normal Strength Strength 5/5 throughout. Sensory Exam Light touch normal. Gait, Coordination, and Reflexes Gait Gait: normal Reflexes Right brachioradialis: 2+ Left brachioradialis: 2+ Right biceps: 2+ Left biceps: 2+ Right triceps: 2+ Left triceps: 2+ Right patellar: 2+ Left patellar: 2+ Right achilles: 2+ Left achilles: 2+ Right payroll administrative assistant: 2+ Left payroll administrative assistant: 2+ Incision Healing well Results Labs: Last 24hrs No results found for this or any previous visit (from the past 24 hour(s)). Radiology Personal review: None for review ASSESSMENT / PLAN : He is status post L2-S1 fusion. He is doing very well his preop symptoms are significantly improved. Today we gave him prescription for follow-up x-rays in 3 months, we given prescription for physical therapy. So far he and his are quite pleased with his surgical results and progress. Will see him back in 3 months with a new x-rays. Diagnosis Plan 1. Lumbar stenosis with neurogenic claudication oxyCODONE (Roxicodone) 5 MG immediate release tablet XR lumbar spine 2 or 3 views External referral to Physical Therapy documented in this encounter [facility] 11-26-2022 History of Present illness Narrative NEUROSURGERY and SPINE POST-OP NOTE Patient Name: Rickie Ortiz Patient : 1950 PCP: AMI STRATTON History of Present Illness: he is 2 weeks s/p L2-S1 fusion. He is having low back pain and leg weakness which he feels is worse than preop. He states his symptoms fluctuate with some days being better than others. No incision concerns. 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 Authorizing Provider acetaminophen (Tylenol 8 Hour) 650 MG ER tablet Take 650 mg by mouth every 6 hours as needed for mild pain (1-3). Yes Historical Provider, albuterol 108 (90 Base) MCG/ACT inhaler Inhale 2 puffs every 6 hours as needed for shortness of breath. Yes Historical Provider, aspirin 81 MG EC tablet Take 81 mg by mouth daily. Yes Historical Provider, atorvastatin (Lipitor) 20 MG tablet Take 20 mg by mouth daily. Yes Historical Provider, azithromycin (Zithromax) 250 MG tablet Take by mouth three times a week. Mon, Wed., Fri. Yes Historical Provider, calcium citrate 315 mg + D2 6.25 mcg tablet Take 1 tablet by mouth in the morning and 1 tablet in the evening. 04/18/21 Yes Historical Provider, carvedilol (Coreg) 3.125 MG tablet Take 3.125 mg by mouth in the morning and 3.125 mg in the evening. 09/02/22 Yes Historical Provider, cetirizine (ZyrTEC) 10 MG tablet Take 10 mg by mouth in the morning. 05/07/22 Yes Historical Provider, Cholecalciferol (Vitamin D) 50 MCG (2000 UT) capsule Take 2,000 Units by mouth daily. Yes Historical Provider, Cyanocobalamin (B-12 Compliance Injection) 1000 MCG/ML kit Inject 1,000 mcg into the shoulder, thigh, or buttocks every 14 (fourteen) days. Yes Historical Provider, ferrous sulfate 325 (65 Fe) MG EC tablet Take 325 mg by mouth Nightly. 06/27/21 Yes Historical Provider, fludrocortisone (Florinef) 0.1 MG tablet Take 0.1 mg by mouth in the morning. 06/05/21 Yes Historical Provider, gabapentin (Neurontin) 300 MG capsule Take 300 mg by mouth 2 times daily. Yes Historical Provider, magnesium oxide (Mag-Ox) Take 400 mg by mouth in the morning and 400 mg in the evening. 04/18/21 Yes Historical Provider, Multiple Vitamins-Minerals (Therapeutic-M) tablet Take 1 tablet by mouth in the morning. 04/18/21 Yes Historical Provider, mycophenolate (Cellcept) 500 MG tablet Take 1,000 mg by mouth in the morning and 1,000 mg in the evening. 05/07/22 Yes Historical Provider, naloxone (Narcan) 4 mg/0.1 mL nasal spray Administer 1 spray (4 mg) into affected nostril(s) Daily as needed for opioid reversal. May repeat every 2-3 minutes if needed, alternating nostrils, until medical assistance becomes available. 11/15/22 11/15/23 Yes Usha Hadley PA-C pantoprazole (ProtoNix) 40 MG EC tablet Take 40 mg by mouth in the morning. 05/07/22 Yes Historical Provider, predniSONE (Deltasone) 5 MG tablet Take 5 mg by mouth in the morning. 07/07/22 Yes Historical Provider, sulfamethoxazole-trimethoprim (Bactrim DS) 800-160 MG tablet Take 1 tablet by mouth three times a week. Mon, Wed., Fri Yes Historical Provider, tacrolimus (Prograf) 0.5 MG capsule Take 1.5 mg by mouth 2 times daily. 07/07/22 Yes Historical Provider, tamsulosin (Flomax) 0.4 MG 24 hr capsule TAKE TWO CAPSULES AT BEDTIME 06/25/22 Yes Historical Provider, chlorhexidine (Hibiclens) 4 % external liquid Apply topically Daily as needed for wound care. 11/06/22 Gabriela Stevenson APRN - PATRICK oxyCODONE (Roxicodone) 10 MG immediate release tablet Take 1 tablet (10 mg) by mouth every 6 hours as needed for severe pain (7-10) for up to 7 days. 11/15/22 11/22/22 Usha Hadley PA-C tiZANidine (Zanaflex) 4 MG tablet Take 1 tablet (4 mg) by mouth every 8 hours as needed for muscle spasms for up to 10 days. 11/15/22 11/25/22 Usha Hadley PA-C Allergies: Patient has no known allergies. Social History: TOBACCO: reports that he quit smoking about 6 years ago. His smoking use included cigarettes. He has a 45.00 pack-year smoking history. He has never used smokeless tobacco. ETOH: reports no history of alcohol use. RECREATIONAL DRUG USE: Social History Substance and Sexual Activity Drug Use Never Family History: Family History Problem Relation Name Age of Onset Heart failure Father Review of Systems: Review of Systems Constitutional: Negative for chills and fever. Respiratory: Negative for shortness of breath. Cardiovascular: Negative for chest pain. Gastrointestinal: Negative for abdominal pain. Musculoskeletal: Positive for back pain. Negative for neck pain. Neurological: Positive for numbness. Negative for weakness. Physical Examination: Vitals: 11/26/22 1249 BP: (!) 169/83 Pulse: 74 Physical Exam Neurologic Exam Awake and alert Motor 5/5 RLE, 4/5 LLE Sensation slightly decreased in LLE Incision C/D/I Results Labs: Last 24hrs No results found for this or any previous visit (from the past 24 hour(s)). Radiology Personal review: No new imaging to review. ASSESSMENT / PLAN : 72-year-old male 2 weeks status post L2-S1 fusion. Postop he had good resolution of his preop back pain although this has now gradually worsened over time. He is complaining of low back pain and some numbness and weakness in the left leg. His incision is healing well with no sign of infection. I have reviewed his PDMP and refilled his oxycodone. He will continue taking opioids and muscle relaxers and I have prescribed a Medrol Dosepak to help with pain and inflammation. I am also ordered lumbar x-rays to rule out a structural pathology. He will return to see Dr. Jaimes in about 3 weeks, sooner if worsening complaints. Patient was agreeable to the plan I answered his questions. Diagnosis Plan 1. Lumbar stenosis with neurogenic claudication oxyCODONE (Roxicodone) 10 MG immediate release tablet XR lumbar spine 4-5 view documented in this encounter [facility] 11-21-2022 Telephone encounter Note Pt notified [facility] 11-21-2022 Miscellaneous Notes Pt notified Patient can take muscle relaxants and pain medications at the same time. Post op call Incision- no drainage/ no redness Showering- regularly BM's- normal Pain medication- as prescribed Pain- 11/17 Brace (If needed)- n/a How is pt doing?- Pt is in a lot of pain. His legs are very weak and he cannot walk more than 15 feet at a time. Legs fall asleep if he does more them every now and then. Pt would like to know if he can take pain meds and muscle relaxant together. Told pt I'd send a message to Dr. Jaimes's DODIE and get back to him. He verbalized understanding. Left vm with office number for pt to call back documented in this encounter [facility] 11-21-2022 Telephone encounter Note Patient can take muscle relaxants and pain medications at the same time. [facility] Work Phone: 11-21-2022 Telephone encounter Note Post op call Incision- no drainage/ no redness Showering- regularly BM's- normal Pain medication- as prescribed Pain- 11/17 Brace (If needed)- n/a How is pt doing?- Pt is in a lot of pain. His legs are very weak and he cannot walk more than 15 feet at a time. Legs fall asleep if he does more them every now and then. Pt would like to know if he can take pain meds and muscle relaxant together. Told pt I'd send a message to Dr. Jaimes's DODIE and get back to him. He verbalized understanding. [facility] 11-21-2022 Telephone encounter Note Left vm with office number for pt to call back [facility] 11-15-2022 Note Discharge Summary Rickie Ortiz : 1950 ADMIT DATE: 11/13/2022 DISCHARGE DATE: 11/15/2022 PRIMARY CARE PHYSICIAN: AMI STRATTON VISIT STATUS: Admission CODE STATUS: Full Code DISCHARGE DIAGNOSES: Principal Problem: Lumbar stenosis with neurogenic claudication HOSPITAL COURSE: The patient underwent L2-S1 fusion. The patient was admitted to the hospital on the day of surgery and underwent the above procedure. Post-operatively, the patient was transferred to the orthopaedic spine floor. They received 24 hours of prophylactic intravenous antibiotics. DVT prophylaxis included SCDs and early ambulation. The patient was able to tolerate a regular diet and their pain was reasonably controlled. The patient progressed well throughout the hospitalization and was deemed stable for discharge on above listed date. SIGNIFICANT DIAGNOSTIC STUDIES: NA CONSULTANTS: PT/OT Medicine Acute Pain Service RECOMMENDED NEXT STEPS: Follow up with Dr. Jaimes in 2 weeks DISCHARGE MEDICATIONS: Medication List ASK your doctor about these medications acetaminophen 650 MG ER tablet Commonly known as: Tylenol 8 Hour albuterol 108 (90 Base) MCG/ACT inhaler aspirin 81 MG EC tablet atorvastatin 20 MG tablet Commonly known as: Lipitor azithromycin 250 MG tablet Commonly known as: Zithromax B-12 Compliance Injection 1000 MCG/ML kit Generic drug: Cyanocobalamin calcium citrate 315 mg + D2 6.25 mcg tablet carvedilol 3.125 MG tablet Commonly known as: Coreg cetirizine 10 MG tablet Commonly known as: ZyrTEC ferrous sulfate 325 (65 Fe) MG EC tablet fludrocortisone 0.1 MG tablet Commonly known as: Florinef gabapentin 300 MG capsule Commonly known as: Neurontin Hibiclens 4 % external liquid Generic drug: chlorhexidine Apply topically Daily as needed for wound care. HYDROcodone-acetaminophen 10-325 MG tablet Commonly known as: [place] HYDROmorphone 4 MG tablet Commonly known as: Dilaudid magnesium oxide Commonly known as: Mag-Ox mycophenolate 500 MG tablet Commonly known as: Cellcept pantoprazole 40 MG EC tablet Commonly known as: ProtoNix predniSONE 5 MG tablet Commonly known as: Deltasone sulfamethoxazole-trimethoprim 800-160 MG tablet Commonly known as: Bactrim DS tacrolimus 0.5 MG capsule Commonly known as: Prograf tamsulosin 0.4 MG 24 hr capsule Commonly known as: Flomax Therapeutic-M tablet tiZANidine 4 MG tablet Commonly known as: Zanaflex Vitamin D 50 MCG (1999 UT) capsule DIET: Adult diet Regular ACTIVITY: No heavy lifting. COMPLEXITY OF FOLLOW UP: [x] Moderate Complexity: follow up within 7-14 calendar days (51934) [] Severe Complexity: follow up within 7 calendar days (38926) FOLLOW UP TESTING, PENDING RESULTS OR REFERRALS AT TRANSITIONAL CARE VISIT: [] Yes [x] No PENDING STUDIES: NA DISPOSITION: Home FACILITY/HOME CARE AGENCY NAME: NA Follow up with Romulo Jaimes MD [id number] [facility] [id number] Follow up on 12/08/2022 INSTRUCTIONS TO MA/SW: Please call patient on day after discharge (must document patient contacted within 2 business days of discharge). FOLLOW UP QUESTIONS FOR MA/SW: 1. Did you get medications filled and taking them as instructed from discharge? 2. Are you following your discharge instructions from your hospital stay? 3. Please confirm patient is scheduled for a follow up appointment within the above time frame. SIGNED: Usha Hadley PA-C 11/15/2022, 10:02 AM [facility] 11-15-2022 Nurse Note Pt discharged home, discharged instructions reviewed and signed. No question at this time. [facility] 11-15-2022 Nurse Note Pt discharged home, discharged instructions reviewed and signed. No question at this time. documented in this encounter [facility] 11-15-2022 History of Present illness Narrative .Nutrition rescreen completed. Chart reviewed. Patient to be monitored and followed by the diet aerospace technician. ELDA Dodson He is postop day 2 from his L2-S1 fusion. He really has no complaints. His preoperative symptoms have resolved. Pain is minimal. Incision is healing nicely. Drain was removed. Strength is at least 4 out of 5 with no new focal objective neurological deficits noted. He would like to be discharged to home. He was given specific instructions regarding discharge medications diet activity and follow-up care. He is making a nice recovery. He will follow-up in approximately 2 weeks and is doing well at this time Images from the original note were not included. PAGING: The Acute Pain Service providers are available exclusively via [employer]. [facility] does not utilize pagers. 11/14/2022 Lab Results Component Value Date CREATININE 1.49 (H) 11/14/2022 Discharge Recommendations: Percocet 5/325. 1 tab q6h prn as long as his pain management provider is okay with script. Pain Management Adjuvants: 0700 --> 0700 11/13/2022 11/14/2022 Scheduled APAP 3250 mg 3250 mg Gabapentin 300 mg 600 mg Lidocaine patches x1 on PRN Hydromorphone 0.5 mg xx Tizanidine 4 mg xx Oxycodone 40 mg 40 mg Assessment / Pain Management Plan: Patient has not used any IV medications in the past 24 hours and has not required any doses today. Acute Postsurgical Back pain Multimodal pain regimen: BLOCK: quadratus lumborum 11/13/22 Continue Acetaminophen 650 mg po q4h scheduled ATC. Continue Gabapentin - per primary team Continue Lidocaine patch x 1. Cut and place as needed. Continue Hydromorphone 0.25 mg - 0.5 mg IVP q4h prn moderate to severe breakthrough pain. Please utilize oral medications first. Continue Tizanidine - per primary Continue Oxycodone 5 - 10 mg po q4h prn moderate to severe breakthrough pain. Continue Naloxone 0.4 mg IVP prn opioid reversal. PRN if respiratory rate is less than 6/min and patient is difficult to arouse then notify physician STAT. Mix 9 mL of sodium chloride 0.9% with 0.4 mg (1 mL) of naloxone (NARCAN) in 10 mL syringe. (Note: dilution is 0.04 mg/mL) Give 0.08 mg (2 mL of special dilution), slow IV push, repeat up to 0.4 mg (10 mL) or until patient is responsive to physical stimulation and respiratory rate is equal to or greater than 6 breaths/min. Continue to observe, if no response within 3 minutes of administration of 0.4 mg (10 mL) total, repeat dose (0.4 mg as administered previously). Lumbar instability S/p L2-S1 fusion 11/13/22 See #1 Constipation At risk for opioid induced constipation Patient currently receiving opioids for pain management necessitating a bowel regimen. Recommend initiating scheduled Sennakot-S 8.6/50mg, 1 tablet PO BID. Would also recommend Milk of Magnesia 400mg/5ml, administer 30mL by mouth daily PRN. Opioid Use Acute: Expected to be short term post op pain, see #1 [place]AR[place] reviewed for past two years. (Recurrent Rx throughout 2021, Intermittent [place] Rx in 2022, last Rx filled 09/30/22) Reviewed and educated patient on responsible use of opioids: after surgery, it can be normal to experience pain. If it is mild and you can move about without great difficulty or discomfort, you may not need to take pain medication. It is very important to take your pain medication only as needed. Avoiding excessive or unnecessary medication, will enable you to progress your activity each day to improve your muscle tone and movement, deep breathing, digestion, circulation and your body's ability to heal itself. Patient pain is well controlled at this time on current pain regimen. We will sign off at this time. Please re-consult our service if patient's pain becomes uncontrolled. Thank you for inviting us to participate in the care of this patient. Plan discussed with patient who appears to understand and agrees. Subjective: We have been asked to see this 72 y.o. male for postoperative pain management s/p L2-S1 fusion 11/13/22 Reviewed EKG 11/06/22 DARWIN, no pages. On arrival, pt sitting in bedside chair. Patient reports he is doing excellent. States he slept the best night last night for being in the hospital. He states pain is controlled. Whatever you guys are doing is excellent . Tolerating his diet. Denies N&V. Pleasant and cooperative with assessment. Patient educated on pain regimen, aware that -oxycodone, dilaudid are PRN and patient must ask for these medications when needed. Educated patient to utilize oral pain medications as first line and reserve IV pain medications for severe breakthrough pain. Pt is realistic about pain control: Not all pain will be taken away, but pain should be tolerable/manageable with current regimen. Pt instructed to have staff page APS if pain becomes uncontrolled when utilizing present regimen. Pt agreeable, denies further questions. PMH reviewed below Sedation score: 1: Awake and alert Pain Severity: mild Pain Location: Back Pain Quality: tender Aggravating Factors: Moving Alleviating Factors: Rest/Pain medications Pain Management: [facility] The patient's medical history and physical assessment, medications, allergies, patient's current medical condition, imaging, and labs were reviewed as part of this consultation. [x] Patient's Medications have been reviewed. [x] Patient's OARRS report (PDMP) have been reviewed. Social History Tobacco Use Smoking Status Former Packs/day: 1.50 Years: 30.00 Pack years: 45.00 Types: Cigarettes Quit date: 2016 Years since quittin.5 Smokeless Tobacco Never Social History Substance and Sexual Activity Alcohol Use Never Social History Substance and Sexual Activity Drug Use Never Allergies: Patient has no known allergies. Objective Findings: Height: 172.7 cm (5' 8 ) Weight: 111 kg (244 lb 6.4 oz) BMI (Calculated): 37.17 Vital signs: Blood pressure 108/54, pulse 78, temperature 37.7 C (99.9 F), temperature source Temporal, resp. rate 16, height 1.727 m (5' 8 ), weight 111 kg (244 lb 6.4 oz), SpO2 92 %. Review of Systems Constitutional: Negative for chills and fever. Respiratory: Negative for cough and shortness of breath. Cardiovascular: Negative for chest pain. Gastrointestinal: Negative for nausea and vomiting. Genitourinary: Negative for difficulty urinating. Musculoskeletal: Positive for back pain. Skin: Positive for wound (surgical). Neurological: Negative for dizziness and numbness. Psychiatric/Behavioral: Negative for agitation. The patient is not nervous/anxious. Physical Exam Vitals and nursing note reviewed. Constitutional: Appearance: Normal appearance. HENT: Head: Normocephalic and atraumatic. Cardiovascular: Rate and Rhythm: Normal rate. Pulmonary: Effort: Pulmonary effort is normal. Musculoskeletal: General: Tenderness (drain intact) present. Cervical back: Normal range of motion. Skin: General: Skin is warm and dry. Neurological: Mental Status: He is alert and oriented to person, place, and time. Psychiatric: Mood and Affect: Mood normal. Behavior: Behavior normal. Thought Content: Thought content normal. Judgment: Judgment normal. 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 Past Surgical History: Procedure Laterality Date BACK SURGERY 05/2014 lumbar CARDIAC CATHETERIZATION 09/08/2016 CATARACT EXTRACTION Bilateral 02/2013 COLONOSCOPY 04/09/2016 LUMBAR FUSION 11/13/2022 L2-S1 LUNG TRANSPLANT Left 05/2020 RT/LT HEART CATHETERS (HISTORICAL) Bilateral 11/28/2019 SHOULDER SURGERY Left 10/2015 arthroscopy for RCR SQUAMOUS CELL CARCINOMA EXCISION Left forearm STENT INSERTION (HISTORICAL) 07/13/2006 heart Family History Problem Relation Name Age of Onset Heart failure Father Patient Active Problem List Diagnosis Lumbar stenosis with neurogenic claudication PAGING: The Acute Pain Service providers are available exclusively via Advise Only SECURE CHAT. APS does not utilize pagers. Occupational Therapy Facility/Department: Occupational Therapy Initial Evaluation NAME: Rickie Ortiz : 1950 Date of Service: 11/14/2022 Discharge Recommendations: Home with assist PRN OT Equipment Recommendations Equipment Needed: No Assessment REQUIRES OT FOLLOW-UP: Yes Performance deficits / Impairments: Decreased functional mobility , Decreased balance, Decreased ADL status, Decreased high-level IADLs, Decreased endurance, Decreased strength Assessment: OT Eval completed. Pt is s/p L2-S1 fusion. OOB ADLs with the occasional min assist, otherwise SBA. Will progress well. Recommending home with assist PRN. Prognosis: Good Decision Making: Medium Complexity Activity Tolerance Activity Tolerance: Patient Tolerated treatment well Patient Diagnosis(es): The encounter diagnosis was Lumbar stenosis with neurogenic claudication. has a past medical history of Arthritis, COPD (chronic obstructive pulmonary disease) (HCC), Coronary artery disease, Hyperlipidemia, Hypertension, and Squamous cell cancer of skin of left forearm. has a past surgical history that includes Lung transplant (Left, 05/2020); rt/lt heart catheters (historical) (Bilateral, 11/28/2019); Squamous cell carcinoma excision (Left); Shoulder surgery (Left, 10/2015); Back surgery (05/2014); stent insertion (historical) (07/13/2006); Cardiac catheterization (09/08/2016); Colonoscopy (04/09/2016); Cataract extraction (Bilateral, 02/2013); and Lumbar fusion (11/13/2022). Restrictions Restrictions/Precautions Restrictions/Precautions: Fall Risk Required Braces or Orthoses?: No Position Activity Restriction Spinal Precautions: No Bending, No Lifting, No Twisting Other position/activity restrictions: CINDY drain; boggs; IV Cognition/Orientation Overall Cognitive Status: WNL Overall Orientation Status: Within Normal Limits Subjective General Chart Reviewed: Yes Patient Assessed for Rehabilitation Services: Yes Additional Pertinent Hx: H/o lung transplant Family / Caregiver Present: No Diagnosis: L2-S1 fusion General Comments Comments: Pt is pleasant and agreeable to OT. Rating back pain 3/10 at rest. Stated after session the pain wasn't as bad as I thought . Patient Stated Goal: Home Social/Functional History Social/Functional History Lives With: Spouse Type of Home: House Home Layout: One level (Does not need to go to basement on regular basis) Home Access: Level entry Entrance Stairs - Number of Steps: 1 Bathroom Shower/Tub: Tub/Shower unit, Shower chair with back Bathroom Toilet: Standard Bathroom Equipment: (Vanity on left for support if needed) Home Equipment: Cane ADL Assistance: Independent Homemaking Assistance: Independent Homemaking Responsibilities: Yes Ambulation Assistance: Independent With device?: Yes Device: (walking stick) Transfer Assistance: Independent Additional Comments: States home making was becoming challenging with back pain- modified tasks (i.e. pacing, breaking up activity, or seated tasks). Pt ambulates with cane. ambulates with FWW, unable to physically assist pt. Objective Gross Assessment: Yes AROM: Within functional limits Strength: Generally decreased, functional Coordination: Within functional limits Tone: Normal Sensation: Intact Functional Mobility Functional - Mobility Device: Cane Activity: To/from bathroom Assist Level: Minimal assistance (Quick to progress to SBA.) Toilet Transfers Toilet - Technique: Ambulating Equipment Used: Grab bars Toilet Transfer: Stand by assistance ADL Grooming: (Various grooming task standing at sink- 1 episode of min assist needed for slight retrobalance, once corrected/cued pt able to maintain SBA.) LE Dressing: (Min assist needed to keep left LE in figure-4 pose to thread, suspecting due to limitations from boggs/pain per pt report. Otherwise SBA.) Additional Comments: ADL standing tolerance x ~6 minutes. Bed mobility Supine to Sit: Stand by assistance Scooting: Stand by assistance Comment: Educated on log-roll, pt demo with min cues for technique. Transfers Sit to stand: Stand by assistance Stand to sit: Stand by assistance Sensation Overall Sensation Status: Intact Plan Times per Week: 3-5 x Plan Weeks: 5 Current Treatment Recommendations: Strengthening, ROM, Balance Training, Functional Mobility Training, Endurance Training, Safety Education & Training, Patient/Caregiver Education & Training, Self-Care / ADL, Equipment Evaluation, Education, & procurement, Home Management Training Safety Safety Devices in place: Yes Type of devices: Left in chair, Patient at risk for falls, Call light within reach, Gait belt, Nurse notified Restraints Initially in place: No AM-PAC Score AM-PAC Inpatient Daily Activity Raw Score: 22 ADL Inpatient [facility] G-Code Modifier: CJ Goals Encounter Problems Encounter Problems (Active) Dressings Lower Extremities Patient will dress lower body mod indep. Start: 11/14/22 Expected End: 12/12/22 Instrumental Activities of Daily Living Light home making task mod indep. Start: 11/14/22 Expected End: 12/12/22 Mobility Patient will complete item retrieval with modified independence Start: 11/14/22 Expected End: 12/12/22 Toileting Patient will complete toileting tasks with modified independence. Start: 11/14/22 Expected End: 12/12/22 Education Education Given To: Patient Education Provided: OT role, Plan of care, Precautions, ADL adaptive strategies, Equipment Education Method: Verbal Barriers to Learning: None Education Outcome: Verbalized understanding Therapy Time Individual Co-treatment Time In 0847 Time Out 0919 Minutes 32 Timed Code Treatment Minutes: 13 Minutes (1- self) Patient's Occupational Therapy [facility]. Goals and/or treatment plan was established in collaboration with patient/family/other representatives. Lisa Nino OTR/L Physical Therapy Facility/Department: Physical Therapy Initial Evaluation NAME: Rickie Ortiz : 1950 Date of Service: 11/14/2022 Discharge Recommendations: Home with assist PRN (home vs outpatient therapy) PT Equipment Recommendations Other: tbd Assessment Requires PT Follow-Up: Yes Assessment: The pt is admitted s/p lumbar fusion of L2-S1 and will benefit from therapy for the listed impairments and to improve his overall functional capacity. He did not present with any gross LOB or unsteadiness while up only minimal SOB. Pt required SBA for mobility and ambulation. Education was provided about precautions, log roll and there ex. Pt should be able to progress to home with assist PRN and home therapy vs outpatient therapy for balance, strength, and endurance progression. Performance Deficits/Impairments: Decreased functional mobility , Decreased endurance, Increased pain, Decreased strength, Decreased posture, Decreased balance Treatment Diagnosis: limited endurance Decision Making: Low Complexity Barriers to Learning: none Barriers to Learning: none Activity Tolerance Activity Tolerance: Patient limited by endurance, Patient Tolerated treatment well Patient Diagnosis(es): The encounter diagnosis was Lumbar stenosis with neurogenic claudication. has a past medical history of Arthritis, COPD (chronic obstructive pulmonary disease) (HCC), Coronary artery disease, Hyperlipidemia, Hypertension, and Squamous cell cancer of skin of left forearm. has a past surgical history that includes Lung transplant (Left, 05/2020); rt/lt heart catheters (historical) (Bilateral, 11/28/2019); Squamous cell carcinoma excision (Left); Shoulder surgery (Left, 10/2015); Back surgery (05/2014); stent insertion (historical) (07/13/2006); Cardiac catheterization (09/08/2016); Colonoscopy (04/09/2016); Cataract extraction (Bilateral, 02/2013); and Lumbar fusion (11/13/2022). Restrictions Restrictions/Precautions Restrictions/Precautions: General Precautions Required Braces or Orthoses?: No Position Activity Restriction Spinal Precautions: No Bending, No Lifting, No Twisting Other position/activity restrictions: PIV, CINDY drain Vision/Hearing Vision: Impaired Vision Exceptions: Wears glasses at all times Hearing: Functional/adequate for paticipation in therapy Cognition/Orientation Overall Cognitive Status: WFL Overall Orientation Status: Within Functional Limits Subjective General Chart Reviewed: Yes Patient Assessed for Rehabilitation Services: Yes Additional Pertinent Hx: lung transplant Family / Caregiver Present: No Diagnosis: lumbar stenosis with neurogenic claudication, s/p L2-S1 fusion Follows Commands: Within Functional Limits Subjective Subjective: Pt sitting up in chair and agreed to PT. Pt did report some incisional pain, 5-6/10. Patient Stated Goal: to go home Social/Functional History Social/Functional History Lives With: Spouse Type of Home: House Home Layout: One level Home Access: Level entry Home Equipment: Cane ADL Assistance: Independent Homemaking Assistance: Independent Ambulation Assistance: Independent With device?: Yes Device: (walking stick) Transfer Assistance: Independent Objective AROM RLE (degrees) RLE AROM: WFL AROM LLE (degrees) LLE AROM : WFL AROM RUE (degrees) RUE AROM : WFL AROM LUE (degrees) LUE AROM : WFL Strength RLE Comment: hip flexion 3+/5, quad and hamstring and DF/PF 5/5 Strength LLE Comment: hip flexion 3+/5, quad and hamstring and DF/PF 5/5 Strength RUE Strength RUE: WFL Strength LUE Strength LUE: WFL Tone RLE RLE Tone: Normotonic Tone LLE LLE Tone: Normotonic Coordination Rapid Alternating Movements: (alternating foot tap, WFL) Sensation Overall Sensation Status: Intact Transfers Sit to Stand: Stand by assistance Stand to sit: Stand by assistance Comment: from chair with arm rests, cues for safety Ambulation Ambulation: Yes Ambulation 1 Surface 1: Level tile Device 1: (walking stick) Assistance 1: Close supervision Quality of Gait Comment 1: reciprocal qualtiy with proper sequencing of stick Distance (ft) 1: 80 ft Comments 1: minimal SOB reported Ambulation 2 Surface 2: Level tile Device 2: (walking stick) Assistance 2: Close supervision Quality of Gait Comment 2: reciprocal with stick and proper sequencing, Distance (ft) 2: 180 ft Comments 2: no gross LOB or unsteadiness. Stairs Rails 1: Left Device 1: (walking stick) Additional Factors: Reciprocal going up, Reciprocal going down Assistance 1: Close supervision Number of Steps 1: four 4 inch steps and 2 6 inch steps Comment 1: no LOB Balance Posture: Fair Sitting - Static: Good Sitting - Dynamic: Good, - Standing - Static: Good, - Standing - Dynamic: Fair, + Comments: Pt able to stand with UE support on walking stick and weight shift without LOB. Pt able to sit upright at edge of chair without UE support and reach without LOB Exercises Hip Flexion: seated july x 15 bilat Knee Long Arc Quad: x15 bilat Ankle Pumps: x15 bilat Shoulder Active Range of Motion: bilat UE alternating shoulder flexion x12 bilat unsupported sitting. Plan Times per Week: 5-7 Plan Weeks: 3 Current Treatment Recommendations: Strengthening, ROM, Balance Training, Functional Mobility Training, Transfer Training, ADL/Self-care Training, Stair training, Gait Training, Endurance Training, Safety Education & Training, Home Exercise Program, Equipment Evaluation, Education, & procurement, Patient/Caregiver Education & Training Safety Safety Devices Safety Devices in Place: Yes Type of Devices: Left in chair, Gait belt, Call light within reach, No alarms engaged upon entry into room Restraints Restraints Initially in Place: No Outcomes Score AM-PAC Score AM-PAC Inpatient Mobility Raw Score : 22 AM-PAC Inpatient Mobility Raw Score (No Stairs) : 18 Goals Encounter Problems Encounter Problems (Active) Mobility Patient will ambulate 150 feet with independence and least restrictive device in order to improve safety and independence with mobility. Start: 11/14/22 Expected End: 12/05/22 Patient will ascend and descend 1-2 stairs with least restrictive device and independence in order to safely negotiate home. Start: 11/14/22 Expected End: 12/05/22 Pain - Adult Transfers Patient will perform bed mobility with independence in order to improve independence and prepare for out of bed mobility. Start: 11/14/22 Expected End: 12/05/22 Patient will complete functional transfer with least restrictive device with independence in order to prepare for ambulation. Start: 11/14/22 Expected End: 12/05/22 Education Education Given To: Patient Education Provided: Goals, PT Role, Plan of Care, Precautions, Discharge recommendations Education Provided Comments: education provided regarding log roll and ther ex and precuations. Education Method: Verbal Barriers to Learning: None Education Outcome: Verbalized understanding Therapy Time Individual Co-treatment Time In 1025 (one eval low complex, one TP) Time Out 1052 Minutes 27 Timed Code Treatment Minutes: 8 Minutes PT wore gloves throughout entire session with patient. Patient s Physical Therapy Plan of Care supervision is transferred to [facility] Department Physical Therapist. Danis Cook PT STEP MEDICATION RECONCILIATION Date: 11/14/22 Room:[address] Patient Name: Rickie Ortiz Allergies: Patient has no known allergies. Age: 72 y.o. Sex: male Note: New information has been obtained regarding the patient's medications. The medication reconciliation has been updated to reflect this. Please consider making these changes/additions if appropriate: Recommendations: Home medications to restart if there is not a current contraindication: Albuterol HFA 2 puffs Q 6 hours PRN shortness of breath Aspirin 81 mg PO daily (when appropriate with neurosurgery) Tamsulosin (patient takes 0.8 mg PO HS at home) Cetirizine 10 mg PO daily Magnesium oxide 400 mg PO BID Multivitamin 1 tablet PO daily Cholecalciferol 2000 units PO daily Please page/call with questions. Date: 11/14/22 Time: 11:29 AM Jose Gunderson PharmD, [facility] 11/14/2022 11:31 AM Department of Neurosurgery Progress Note SUBJECTIVE: s/p L2-S1 fusion. He is doing well, complaining of incisional pain. Reports improvement in pre-op back pain and leg weakness. Has ambulated with OT, sitting up to chair. Boggs in place. Drain 100 ml last shift. OBJECTIVE Physical BP 127/84 (BP Location: Left arm, Patient Position: Sitting) Pulse 83 Temp 37.3 C (99.1 F) (Temporal) Resp 16 Ht 5' 8 (1.727 m) Wt 244 lb 6.4 oz (111 kg) SpO2 95% BMI 37.16 kg/m NEUROLOGIC: Alert and oriented Motor strength 5/5 LE Sensation intact to light touch Dressing C/D/I, CINDY drain in place ASSESSMENT AND PLAN 72 y.o. male POD1 s/p L2-S1 fusion by Dr Jaimes. He is recovering as expected with improvement in pre-op symptoms. Will keep drain in today. Remove boggs, PT/OT evaluation, mobilize, pain control. Likely discharge in 1-2 days pending drain output. Roxy Rangel PA-C documented in this encounter [facility] 11-15-2022 Hospital Discharge instructions Usha Hadley PA-C - 11/15/2022 10:02 AM EDT Wound care: Keep incision open to air, do not apply creams or lotions to incision You may shower, but do not soak in a tub or pool Call the office immediately if you notice any drainage, pus, or signs of infection General Instructions: No lifting greater than 10 pounds for [address] while using opioid pain medications or muscle relaxants Limit twisting, turning, and bending motions at the waist Avoid NSAIDs such as Ibuprofen, Advil, Aleve, Naproxen, and Mobic Pain medication may constipate you requiring strong laxatives such as milk of magnesia or magnesium citrate Vitamin D3 5,000 units daily and calcium in diet are good for healing of fusion Follow up with Dr. Jaimes on 12/08/2022 Call the office with any questions or concerns, documented in this encounter [facility] 11-14-2022 Note [facility] History and Physical Note Rickie Ortiz : 1950(72 y.o.) PCP: AMI STRATTON Assessment and Plan: Principal Problem: Lumbar stenosis with neurogenic claudication # Lumbar stenosiss/p L2-S1 fusion (11/13/22)- perprimary # COPD s/p lung tranplant -on prednisone, azithromycin, bactrim, Prograf and Cellcept -on PRN bonchodilator # Immunocompromised state # CAD -Hold ASA due to surgery, will defer time to start to neuro surg -resume home statin and coreg # CKD III w/o LUIS ENRIQUE- caution with nephrotoxins BMI Classification: Body mass index is 37.16 kg/m?. obesity BMI 30-39.9 Disposition: will s/o text via secure chat for questions or concerns . Total time spent: 55 minutes, of total time providing counseling or in coordination of care. Total time on this day of visit includes record and documentation review before and after visit including documentation and time not explicitly included on EMR time stamp. [id number]: Please page me for patient care issues. [phone]: Please page [facility] night hospitalist for any issues. Subjective: No chief complaint on file. CC: medical management Interval History: Rickie Ortiz is a 72 y.o. male with history of COPD s/p lung transplant, CAD, HTN and chronic back rashid due to lumbar stenosis. Patient was admitted for elective s/p L2-S1 fusion (11/13/22). Medicine was consulted for medical management. Pt currently denies any complaints except post op pain which is controlled with anagesics Temp: [36.2 ?C (97.2 ?F)-37.3 ?C (99.1 ?F)] 37.3 ?C (99.1 ?F) Heart Rate: [66-85] 83 Resp: [14-18] 16 BP: (108-134)/(66-84) 127/84 Lab Results Component Value Date GLUCOSE 162 (H) 11/14/2022 CALCIUM 8.1 (L) 11/14/2022 NA 135 11/14/2022 K 5.4 (H) 11/14/2022 CO2 18 (L) 11/14/2022 CL 106 11/14/2022 BUN 38 (H) 11/14/2022 CREATININE 1.49 (H) 11/14/2022 Lab Results Component Value Date WBC 11.1 (H) 11/14/2022 HGB 9.7 (L) 11/14/2022 HCT 30.1 (L) 11/14/2022 MCV 93.5 11/14/2022 PLT 181 11/14/2022 FL GUIDANCE OR USE ONLY - NON RESULTABLE There is no interpretation needed for this exam. FL GUIDANCE OR USE ONLY - NON RESULTABLE There is no interpretation needed for this exam. 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 Past Surgical History: Procedure Laterality Date BACK SURGERY 05/2014 lumbar CARDIAC CATHETERIZATION 09/08/2016 CATARACT EXTRACTION Bilateral 02/2013 COLONOSCOPY 04/09/2016 LUMBAR FUSION 11/13/2022 L2-S1 LUNG TRANSPLANT Left 05/2020 RT/LT HEART CATHETERS (HISTORICAL) Bilateral 11/28/2019 SHOULDER SURGERY Left 10/2015 arthroscopy for RCR SQUAMOUS CELL CARCINOMA EXCISION Left forearm STENT INSERTION (HISTORICAL) 07/13/2006 heart Family History Problem Relation Name Age of Onset Heart failure Father Social History Socioeconomic History Marital status: Spouse name: Not on file Number of children: Not on file Years of education: Not on file Highest education level: Not on file Occupational History Not on file Tobacco Use Smoking status: Former Packs/day: 1.50 Years: 30.00 Pack years: 45.00 Types: Cigarettes Quit date: 2016 Years since quittin.5 Smokeless tobacco: Never Vaping Use Vaping Use: Never used Substance and Sexual Activity Alcohol use: Never Drug use: Never Sexual activity: Not on file Other Topics Concern Not on file Social History Narrative Not on file Social Determinants of Health Financial Resource Strain: Not on file Food Insecurity: Not on file Transportation Needs: Not on file Physical Activity: Not on file Stress: Not on file Social Connections: Not on file Intimate Partner Violence: Not on file Housing Stability: Not on file No Known Allergies Prior to Admission medications Medication Sig Start Date End Date Taking? Authorizing Provider acetaminophen (Tylenol 8 Hour) 650 MG ER tablet Take 650 mg by mouth every 6 hours as needed for mild pain (1-3). Yes Historical Provider, aspirin 81 MG EC tablet Take 81 mg by mouth daily. Yes Historical Provider, atorvastatin (Lipitor) 20 MG tablet Take 20 mg by mouth daily. Yes Historical Provider, azithromycin (Zithromax) 250 MG tablet Take by mouth three times a week. Mon, Wed., Fri. Yes Historical Provider, calcium citrate 315 mg + D2 6.25 mcg tablet Take 1 tablet by mouth in the morning and 1 tablet in the evening. 04/18/21 Yes Historical Provider, MD carvedilol (Coreg) 3.125 MG tablet Take 3.125 mg by mouth in the morning and 3.125 mg in the evening. 09/02/22 Yes Historical Provider, cetirizine (ZyrTEC) 10 MG tablet Take 10 mg by mouth in the morning. 05/07/22 Yes Historical Provider, Cholecalciferol (Vitamin D) 50 MCG (1999 UT) capsule Take 2,000 Uni (more content not included)... [facility] 11-14-2022 Note Formatting of this n ote might be different from the original. TCC attempted to meet w/pt, pt soundly sleeping. Will reattempt as time allows. [facility] 11-14-2022 Note Formatting of this n ote might be different from the original. TCC attempted to meet w/pt, pt soundly sleeping. Will reattempt as time allows. [facility] 11-14-2022 Miscellaneous Notes TCC attempted to meet w/pt, pt soundly sleeping. Will reattempt as time allows. Spoke to patient regarding possible home care therapy - pt politely declined at this time. Pt denies any DME needs for home. Rekha MALAGON updated. Problem: Pain - Adult Goal: Verbalizes/displays adequate comfort level or baseline comfort level Outcome: Progressing Flowsheets (Taken 11/14/2022 1104) Verbalizes/displays adequate comfort level or baseline comfort level: Encourage patient to monitor pain and request assistance Assess pain using appropriate pain scale Problem: Safety - Adult Goal: Free from fall injury Outcome: Progressing Flowsheets (Taken 11/14/2022 1104) Free from fall injury: Instruct family/caregiver on patient safety Based on caregiver fall risk screen, instruct family/caregiver to ask for assistance with transferring if caregiver noted to have fall risk factors Printer Machine following case for Discharge Needs. Message sent to Jovani via [employer] Messenger Updated oJvani on the phone. Message sent to Jovani via [employer]. OPERATIVE NOTE Patient Name: Rickie Ortiz : 1950 DATE OF PROCEDURE: 11/13/2022 SURGEON: Romulo Jaimes MD INFECTION PREVENTION COORDINATOR: Nisa Carmen CNP PREOPERATIVE DIAGNOSES: Lumbar instability POSTOPERATIVE DIAGNOSES: Same PROCEDURE: L2-S1 fusion ANESTHESIA: General ESTIMATED BLOOD LOSS: 100 INDICATION FOR PROCEDURE: Mr. Ortiz is a 72-year-old gentleman who presented with chronic mechanical back pain. He had a history of L2, L3, L4, L5 laminectomy in the past. This helped with his leg pain but is still left with significant mechanical back pain worse with bending lifting twisting. MRI showed significant mount of fluid in the facet joints L2-S1. Risks and benefits of lumbar fusion were discussed with him, he wished to proceed. DESCRIPTION OF PROCEDURE: Patient was brought to the operating room general endotracheal seizure was induced. He had spinal cord monitoring leads placed. He was turned prone on a spinal Stefan table, his face chest hips arms legs feet were all padded appropriately. C-arm was brought in field approximate the L1-L2 level, this marked surgical marker and he was prepped and draped in the normal sterile fashion. After appropriate timeout identifying the patient, the level of surgery the type surgery point 5% Marcaine with epinephrine was instilled future incision. Skin incision was made dissection carried out to expose the spinous process of L1 and the lamina of L1. This was the lowest lamina left in the lumbar spine levels confirmed indirectly via C arm. We confirmed that this was the L1 level then we dissected laterally on the facets to identify the transverse processes of L2, L3, L4, L5, and S1. Also the pars interarticularis at each level. When the exposure was complete bilaterally there was thorough decortication of the transverse processes lateral facets and pars interarticularis at each level. Then an O-arm scan was performed this allowed pedicle screws to be placed under live navigation at L1-2, L3, L4, L5, S1 bilaterally. Please note that during the exposure there was severe facet arthropathy multiple facets had large gaps between the superior and inferior parts of the facets. There was a pars defect at L4-L5 bilaterally. The screws were then placed under live navigation using the O-arm. Procedure to place the screws was as follows drill to make facilities flight check pilot hole followed by pedicle finder followed by pedicle feeler followed by tap followed by pedicle feeler followed by the screw. 6.5 x 50 mm screws were placed at L2, 6.5 x 45 mm screws were placed at L3-L4 and L5, 6.5 x 40 mm screws were placed at S1. There were no changes to the EMG nerve conduction monitoring when the screws were placed. After the screws were placed they were all stimulated they all stimulated at an acceptable level. Then there was additional decortication performed lateral facets and pars interarticularis at each level and then bone graft material was placed for posterolateral fusion. The wound was elie irrigated out. Then a 10 [place] round CINDY drain was placed. The muscle fascia was then closed with interrupted 0 Vicryl sutures followed another layer of interrupted 2-0 Vicryl sutures followed by subcuticular up to 3-0 Vicryl sutures with a running locked 3-0 nylon on the skin. Sterile dressing was placed. He was extubated taken recovery in stable fashion. All his spinal cord signals were the same at the end of the case compared to the beginning. There is no neurosurgical resident available to assist the case, the nurse practitioner assisted to provide suction retraction assistance with opening and closing allow the case to be performed safely. 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 (Active) Urethral Catheter 16 Fr. (Active) Implants - [employer] Type Name Action Serial No. Osteobi[employer] SUB [id number] GRAFT DBM PUTTY GR - [id number] - [id number] Implanted [id number] Osteobiologic SUB [id number] GRAFT DBM PUTTY GRFT - [id number] - [id number] Implanted [id number] Bone BONE BMP PUTTY I-FACTOR 5.0CC - [id number] Implanted Bone BONE BMP PUTTY I-FACTOR 5.0CC - [id number] Implanted Spinal Hardware SCREW SPINAL [id number] - [id number] Implanted Spinal Hardware SCREW SPINAL 6.1COH98BI - [id number] Implanted Spinal Hardware SCREW SPINAL 6.0YRR40FD - [id number] Implanted Spinal Hardware SCREW SET TI SPINAL BREAK OFF - [id number] Implanted Spinal Hardware DIA SPINE LUMBAR 5.9S939ES - [id number] Implanted Staff: Sales Promotion Manager: Nisa Glez RN Nurse Practitioner: Nisa Carmen APRN - [employer] Scrub Person: Marbella Cervantes RN Program Manager Environmental Planning: Elizabet Downs Findings: See op note Complications: None; patient tolerated the procedure well. Specimens Collected: Order Name Source Comment Collection Info Order Time POTASSIUM WITH MG REFLEX For patients on dialysis to draw potassium day of surgery 11/13/2022 6:14 AM PROTHROMBIN TIME If patient on coumadin within 4 days prior. 11/13/2022 6:14 AM Wound Class: Class I: Clean Blood Products: None Prophylactic Antibiotics: Procedure appropriate prophylactic antibiotic(s) given within 1 hour of surgical incision (two hours if receiving Vancomycin or flouroquinolone) documented in this encounter [facility] 11-14-2022 Note Formatting of this n ote might be different from the original. Spoke to patient regarding possible home care therapy - pt politely declined at this time. Pt denies any DME needs for home. Rekha MALAGON, updated. [facility] 11-14-2022 Note Formatting of this n ote might be different from the original. Spoke to patient regarding possible home care therapy - pt politely declined at this time. Pt denies any DME needs for home. Rekha MALAGON updated. [facility] 11-14-2022 Consult note Associated Order (s): IP CONSULT TO INTERNAL MEDICINE [facility] History and Physical Note Rickie Ortiz : 1950(72 y.o.) PCP: [facility]I STRATTON Assessment and Plan: Principal Problem: Lumbar stenosis with neurogenic claudication # Lumbar stenosiss/p L2-S1 fusion (11/13/22)- perprimary # COPD s/p lung tranplant -on prednisone, azithromycin, bactrim, Prograf and Cellcept -on PRN bonchodilator # Immunocompromised state # CAD -Hold ASA due to surgery, will defer time to start to neuro surg -resume home statin and coreg # CKD III w/o LUIS ENRIQUE- caution with nephrotoxins BMI Classification: Body mass index is 37.16 kg/m . obesity BMI 30-39.9 Disposition: will s/o text via secure chat for questions or concerns . Total time spent: 55 minutes, of total time providing counseling or in coordination of care. Total time on this day of visit includes record and documentation review before and after visit including documentation and time not explicitly included on EMR time stamp. [phone]: Please page me for patient care issues. [phone]: Please page [facility] night hospitalist for any issues. Subjective: No chief complaint on file. CC: medical management Interval History: Rickie Ortiz is a 72 y.o. male with history of COPD s/p lung transplant, CAD, HTN and chronic back rashid due to lumbar stenosis. Patient was admitted for elective s/p L2-S1 fusion (11/13/22). Medicine was consulted for medical management. Pt currently denies any complaints except post op pain which is controlled with anagesics Temp: [36.2 C (97.2 F)-37.3 C (99.1 F)] 37.3 C (99.1 F) Heart Rate: [66-85] 83 Resp: [14-18] 16 BP: (108-134)/(66-84) 127/84 Lab Results Component Value Date GLUCOSE 162 (H) 11/14/2022 CALCIUM 8.1 (L) 11/14/2022 NA 135 11/14/2022 K 5.4 (H) 11/14/2022 CO2 18 (L) 11/14/2022 CL 106 11/14/2022 BUN 38 (H) 11/14/2022 CREATININE 1.49 (H) 11/14/2022 Lab Results Component Value Date WBC 11.1 (H) 11/14/2022 HGB 9.7 (L) 11/14/2022 HCT 30.1 (L) 11/14/2022 MCV 93.5 11/14/2022 PLT 181 11/14/2022 FL GUIDANCE OR USE ONLY - NON RESULTABLE There is no interpretation needed for this exam. FL GUIDANCE OR USE ONLY - NON RESULTABLE There is no interpretation needed for this exam. 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 Past Surgical History: Procedure Laterality Date BACK SURGERY 05/2014 lumbar CARDIAC CATHETERIZATION 09/08/2016 CATARACT EXTRACTION Bilateral 02/2013 COLONOSCOPY 04/09/2016 LUMBAR FUSION 11/13/2022 L2-S1 LUNG TRANSPLANT Left 05/2020 RT/LT HEART CATHETERS (HISTORICAL) Bilateral 11/28/2019 SHOULDER SURGERY Left 10/2015 arthroscopy for RCR SQUAMOUS CELL CARCINOMA EXCISION Left forearm STENT INSERTION (HISTORICAL) 07/13/2006 heart Family History Problem Relation Name Age of Onset Heart failure Father Social History Socioeconomic History Marital status: Spouse name: Not on file Number of children: Not on file Years of education: Not on file Highest education level: Not on file Occupational History Not on file Tobacco Use Smoking status: Former Packs/day: 1.50 Years: 30.00 Pack years: 45.00 Types: Cigarettes Quit date: 2016 Years since quittin.5 Smokeless tobacco: Never Vaping Use Vaping Use: Never used Substance and Sexual Activity Alcohol use: Never Drug use: Never Sexual activity: Not on file Other Topics Concern Not on file Social History Narrative Not on file Social Determinants of Health Financial Resource Strain: Not on file Food Insecurity: Not on file Transportation Needs: Not on file Physical Activity: Not on file Stress: Not on file Social Connections: Not on file Intimate Partner Violence: Not on file Housing Stability: Not on file No Known Allergies Prior to Admission medications Medication Sig Start Date End Date Taking? Authorizing Provider acetaminophen (Tylenol 8 Hour) 650 MG ER tablet Take 650 mg by mouth every 6 hours as needed for mild pain (1-3). Yes Historical Provider, aspirin 81 MG EC tablet Take 81 mg by mouth daily. Yes Historical Provider, atorvastatin (Lipitor) 20 MG tablet Take 20 mg by mouth daily. Yes Historical Provider, azithromycin (Zithromax) 250 MG tablet Take by mouth three times a week. Mon, Wed., Fri. Yes Historical Provider, calcium citrate 315 mg + D2 6.25 mcg tablet Take 1 tablet by mouth in the morning and 1 tablet in the evening. 04/18/21 Yes Historical Provider, carvedilol (Coreg) 3.125 MG tablet Take 3.125 mg by mouth in the morning and 3.125 mg in the evening. 09/02/22 Yes Historical Provider, cetirizine (ZyrTEC) 10 MG tablet Take 10 mg by mouth in the morning. 05/07/22 Yes Historical Provider, Cholecalciferol (Vitamin D) 50 MCG (2000 UT) capsule Take 2,000 Units by mouth daily. Yes Historical Provider, ferrous sulfate 325 (65 Fe) MG EC tablet Take 325 mg by mouth Nightly. 06/27/21 Yes Historical Provider, fludrocortisone (Florinef) 0.1 MG tablet Take 0.1 mg by mouth in the morning. 06/05/21 Yes Historical Provider, gabapentin (Neurontin) 300 MG capsule Take 300 mg by mouth 2 times daily. Yes Historical Provider, HYDROcodone-acetaminophen ([place]) 10-325 MG tablet Take 1 tablet by mouth every 8 hours as needed for moderate pain (4-6). 06/07/22 Yes Historical Provider, magnesium oxide (Mag-Ox) Take 400 mg by mouth in the morning and 400 mg in the evening. 04/18/21 Yes Historical Provider, Multiple Vitamins-Minerals (Therapeutic-M) tablet Take 1 tablet by mouth in the morning. 04/18/21 Yes Historical Provider, pantoprazole (ProtoNix) 40 MG EC tablet Take 40 mg by mouth in the morning. 05/07/22 Yes Historical Provider, predniSONE (Deltasone) 5 MG tablet Take 5 mg by mouth in the morning. 07/07/22 Yes Historical Provider, tacrolimus (Prograf) 0.5 MG capsule Take 1.5 mg by mouth 2 times daily. 07/07/22 Yes Historical Provider, tamsulosin (Flomax) 0.4 MG 24 hr capsule TAKE TWO CAPSULES AT BEDTIME 06/25/22 Yes Historical Provider, tiZANidine (Zanaflex) 4 MG tablet Take 1 tablet by mouth Nightly as needed for muscle spasms. Yes Historical Provider, albuterol 108 (90 Base) MCG/ACT inhaler Inhale 2 puffs every 6 hours as needed for shortness of breath. Historical Provider, chlorhexidine (Hibiclens) 4 % external liquid Apply topically Daily as needed for wound care. 11/06/22 Gabriela Stevenson APRN - PATRICK Cyanocobalamin (B-12 Compliance Injection) 1000 MCG/ML kit Inject 1,000 mcg into the shoulder, thigh, or buttocks every 14 (fourteen) days. Historical Provider, HYDROmorphone (Dilaudid) 4 MG tablet Take 4 mg by mouth every 8 hours as needed for severe pain (7-10). Historical Provider, mycophenolate (Cellcept) 500 MG tablet Take 1,000 mg by mouth in the morning and 1,000 mg in the evening. 05/07/22 Historical Provider, sulfamethoxazole-trimethoprim (Bactrim DS) 800-160 MG tablet Take 1 tablet by mouth three times a week. Mon, Wed., Thu Historical ProviderMD fentaNYL (Duragesic) 12 MCG/HR apply ONE PATCH transdermally every 72 HOURS DIRECTED 06/05/22 11/14/22 Historical ProviderMD Review of Systems All other systems reviewed and are negative. Objective: Vitals: 11/13/22 1952 11/14/22 0020 11/14/22 0427 11/14/22 0930 BP: 119/76 134/72 108/73 127/84 BP Location: Right arm Right arm Right arm Left arm Patient Position: Sitting Sitting Sitting Sitting Pulse: 85 80 72 83 Resp: 16 16 16 Temp: 36.8 C (98.3 F) 36.5 C (97.7 F) 37.2 C (98.9 F) 37.3 C (99.1 F) TempSrc: Temporal Temporal Temporal Temporal SpO2: 93% 98% 93% 95% Weight: Height: Physical Exam Vitals and nursing note reviewed. Constitutional: General: He is not in acute distress. Appearance: He is not ill-appearing, toxic-appearing or diaphoretic. HENT: Head: Normocephalic and atraumatic. Right Ear: External ear normal. Left Ear: External ear normal. Nose: Nose normal. No congestion or rhinorrhea. Mouth/Throat: Pharynx: No oropharyngeal exudate or posterior oropharyngeal erythema. Eyes: General: No scleral icterus. Right eye: No discharge. Left eye: No discharge. Extraocular Movements: Extraocular movements intact. Conjunctiva/sclera: Conjunctivae normal. Pupils: Pupils are equal, round, and reactive to light. Neck: Vascular: No carotid bruit. Cardiovascular: Rate and Rhythm: Normal rate and regular rhythm. Pulmonary: Effort: Pulmonary effort is normal. No respiratory distress. Breath sounds: Normal breath sounds. No wheezing, rhonchi or rales. Abdominal: General: Bowel sounds are normal. There is no distension. Palpations: Abdomen is soft. There is no mass. Tenderness: There is no abdominal tenderness. There is no right CVA tenderness, left CVA tenderness, guarding or rebound. Hernia: No hernia is present. Musculoskeletal: General: No swelling, tenderness, deformity or signs of injury. Normal range of motion. Cervical back: Normal range of motion and neck supple. No rigidity or tenderness. Right lower leg: No edema. Left lower leg: No edema. Comments: Lumbar drain and surgical site incision dressing intact Lymphadenopathy: Cervical: No cervical adenopathy. Skin: General: Skin is warm and dry. Capillary Refill: Capillary refill takes less than 2 seconds. Coloration: Skin is not jaundiced or pale. Findings: No bruising, erythema, lesion or rash. Neurological: General: No focal deficit present. Mental Status: He is alert. Cranial Nerves: No cranial nerve deficit. Sensory: No sensory deficit. Motor: No weakness. Psychiatric: Mood and Affect: Mood normal. Behavior: Behavior normal. Judgment: Judgment normal. Lab Results Component Value Date NA 135 11/14/2022 K 5.4 (H) 11/14/2022 CL 106 11/14/2022 CO2 18 (L) 11/14/2022 BUN 38 (H) 11/14/2022 CREATININE 1.49 (H) 11/14/2022 GLUCOSE 162 (H) 11/14/2022 CALCIUM 8.1 (L) 11/14/2022 Lab Results Component Value Date WBC 11.1 (H) 11/14/2022 HGB 9.7 (L) 11/14/2022 HCT 30.1 (L) 11/14/2022 MCV 93.5 11/14/2022 PLT 181 11/14/2022 Additional results since admission have been reviewed. No components found for: LABA1C No components found for: LFT IMAGES: FL GUIDANCE OR USE ONLY - NON RESULTABLE There is no interpretation needed for this exam. FL GUIDANCE OR USE ONLY - NON RESULTABLE There is no interpretation needed for this exam. No echocardiogram results found for the past 12 months [employer] Work Phone: 11-14-2022 Consult note Associated Order (s): IP CONSULT TO INTERNAL MEDICINE [facility] History and Physical Note Rickie Ortiz : 1950(72 y.o.) PCP: AMI STRATTON Assessment and Plan: Principal Problem: Lumbar stenosis with neurogenic claudication # Lumbar stenosiss/p L2-S1 fusion (11/13/22)- perprimary # COPD s/p lung tranplant -on prednisone, azithromycin, bactrim, Prograf and Cellcept -on PRN bonchodilator # Immunocompromised state # CAD -Hold ASA due to surgery, will defer time to start to neuro surg -resume home statin and coreg # CKD III w/o ULIS ENRIQUE- caution with nephrotoxins BMI Classification: Body mass index is 37.16 kg/m . obesity BMI 30-39.9 Disposition: will s/o text via secure chat for questions or concerns . Total time spent: 55 minutes, of total time providing counseling or in coordination of care. Total time on this day of visit includes record and documentation review before and after visit including documentation and time not explicitly included on EMR time stamp. [phone]: Please page me for patient care issues. [phone]: Please page [facility] night hospitalist for any issues. Subjective: No chief complaint on file. CC: medical management Interval History: Rickie Ortiz is a 72 y.o. male with history of COPD s/p lung transplant, CAD, HTN and chronic back rashid due to lumbar stenosis. Patient was admitted for elective s/p L2-S1 fusion (11/13/22). Medicine was consulted for medical management. Pt currently denies any complaints except post op pain which is controlled with anagesics Temp: [36.2 C (97.2 F)-37.3 C (99.1 F)] 37.3 C (99.1 F) Heart Rate: [66-85] 83 Resp: [14-18] 16 BP: (108-134)/(66-84) 127/84 Lab Results Component Value Date GLUCOSE 162 (H) 11/14/2022 CALCIUM 8.1 (L) 11/14/2022 NA 135 11/14/2022 K 5.4 (H) 11/14/2022 CO2 18 (L) 11/14/2022 CL 106 11/14/2022 BUN 38 (H) 11/14/2022 CREATININE 1.49 (H) 11/14/2022 Lab Results Component Value Date WBC 11.1 (H) 11/14/2022 HGB 9.7 (L) 11/14/2022 HCT 30.1 (L) 11/14/2022 MCV 93.5 11/14/2022 PLT 181 11/14/2022 FL GUIDANCE OR USE ONLY - NON RESULTABLE There is no interpretation needed for this exam. FL GUIDANCE OR USE ONLY - NON RESULTABLE There is no interpretation needed for this exam. 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 Past Surgical History: Procedure Laterality Date BACK SURGERY 05/2014 lumbar CARDIAC CATHETERIZATION 09/08/2016 CATARACT EXTRACTION Bilateral 02/2013 COLONOSCOPY 04/09/2016 LUMBAR FUSION 11/13/2022 L2-S1 LUNG TRANSPLANT Left 05/2020 RT/LT HEART CATHETERS (HISTORICAL) Bilateral 11/28/2019 SHOULDER SURGERY Left 10/2015 arthroscopy for RCR SQUAMOUS CELL CARCINOMA EXCISION Left forearm STENT INSERTION (HISTORICAL) 07/13/2006 heart Family History Problem Relation Name Age of Onset Heart failure Father Social History Socioeconomic History Marital status: Spouse name: Not on file Number of children: Not on file Years of education: Not on file Highest education level: Not on file Occupational History Not on file Tobacco Use Smoking status: Former Packs/day: 1.50 Years: 30.00 Pack years: 45.00 Types: Cigarettes Quit date: 2016 Years since quittin.5 Smokeless tobacco: Never Vaping Use Vaping Use: Never used Substance and Sexual Activity Alcohol use: Never Drug use: Never Sexual activity: Not on file Other Topics Concern Not on file Social History Narrative Not on file Social Determinants of Health Financial Resource Strain: Not on file Food Insecurity: Not on file Transportation Needs: Not on file Physical Activity: Not on file Stress: Not on file Social Connections: Not on file Intimate Partner Violence: Not on file Housing Stability: Not on file No Known Allergies Prior to Admission medications Medication Sig Start Date End Date Taking? Authorizing Provider acetaminophen (Tylenol 8 Hour) 650 MG ER tablet Take 650 mg by mouth every 6 hours as needed for mild pain (1-3). Yes Historical Provider, aspirin 81 MG EC tablet Take 81 mg by mouth daily. Yes Historical Provider, atorvastatin (Lipitor) 20 MG tablet Take 20 mg by mouth daily. Yes Historical Provider, azithromycin (Zithromax) 250 MG tablet Take by mouth three times a week. Mon, Wed., Fri. Yes Historical Provider, calcium citrate 315 mg + D2 6.25 mcg tablet Take 1 tablet by mouth in the morning and 1 tablet in the evening. 04/18/21 Yes Historical Provider, carvedilol (Coreg) 3.125 MG tablet Take 3.125 mg by mouth in the morning and 3.125 mg in the evening. 09/02/22 Yes Historical Provider, cetirizine (ZyrTEC) 10 MG tablet Take 10 mg by mouth in the morning. 05/07/22 Yes Historical Provider, Cholecalciferol (Vitamin D) 50 MCG (2000 UT) capsule Take 2,000 Units by mouth daily. Yes Historical Provider, ferrous sulfate 325 (65 Fe) MG EC tablet Take 325 mg by mouth Nightly. 06/27/21 Yes Historical Provider, fludrocortisone (Florinef) 0.1 MG tablet Take 0.1 mg by mouth in the morning. 06/05/21 Yes Historical Provider, gabapentin (Neurontin) 300 MG capsule Take 300 mg by mouth 2 times daily. Yes Historical Provider, HYDROcodone-acetaminophen (L[place] Mar) 10-325 MG tablet Take 1 tablet by mouth every 8 hours as needed for moderate pain (4-6). 06/07/22 Yes Historical Provider, magnesium oxide (Mag-Ox) Take 400 mg by mouth in the morning and 400 mg in the evening. 04/18/21 Yes Historical Provider, Multiple Vitamins-Minerals (Therapeutic-M) tablet Take 1 tablet by mouth in the morning. 04/18/21 Yes Historical Provider, pantoprazole (ProtoNix) 40 MG EC tablet Take 40 mg by mouth in the morning. 05/07/22 Yes Historical Provider, predniSONE (Deltasone) 5 MG tablet Take 5 mg by mouth in the morning. 07/07/22 Yes Historical Provider, tacrolimus (Prograf) 0.5 MG capsule Take 1.5 mg by mouth 2 times daily. 07/07/22 Yes Historical Provider, tamsulosin (Flomax) 0.4 MG 24 hr capsule TAKE TWO CAPSULES AT BEDTIME 06/25/22 Yes Historical Provider, tiZANidine (Zanaflex) 4 MG tablet Take 1 tablet by mouth Nightly as needed for muscle spasms. Yes Historical Provider, albuterol 108 (90 Base) MCG/ACT inhaler Inhale 2 puffs every 6 hours as needed for shortness of breath. Historical Provider, chlorhexidine (Hibiclens) 4 % external liquid Apply topically Daily as needed for wound care. 11/06/22 Gabriela Stevenson APRN - [employer] Cyanocobalamin (B-12 Compliance Injection) 1000 MCG/ML kit Inject 1,000 mcg into the shoulder, thigh, or buttocks every 14 (fourteen) days. Historical Provider, HYDROmorphone (Dilaudid) 4 MG tablet Take 4 mg by mouth every 8 hours as needed for severe pain (7-10). Historical Provider, mycophenolate (Cellcept) 500 MG tablet Take 1,000 mg by mouth in the morning and 1,000 mg in the evening. 05/07/22 Historical Provider, sulfamethoxazole-trimethoprim (Bactrim DS) 800-160 MG tablet Take 1 tablet by mouth three times a week. Thu, Thu., Thu Historical Provider, fentaNYL (Duragesic) 12 MCG/HR apply ONE PATCH transdermally every 72 HOURS DIRECTED 06/05/22 11/14/22 Historical Provider, Review of Systems All other systems reviewed and are negative. Objective: Vitals: 11/13/22 1952 11/14/22 0020 11/14/22 0427 11/14/22 0930 BP: 119/76 134/72 108/73 127/84 BP Location: Right arm Right arm Right arm Left arm Patient Position: Sitting Sitting Sitting Sitting Pulse: 85 80 72 83 Resp: 16 16 16 Temp: 36.8 C (98.3 F) 36.5 C (97.7 F) 37.2 C (98.9 F) 37.3 C (99.1 F) TempSrc: Temporal Temporal Temporal Temporal SpO2: 93% 98% 93% 95% Weight: Height: Physical Exam Vitals and nursing note reviewed. Constitutional: General: He is not in acute distress. Appearance: He is not ill-appearing, toxic-appearing or diaphoretic. HENT: Head: Normocephalic and atraumatic. Right Ear: External ear normal. Left Ear: External ear normal. Nose: Nose normal. No congestion or rhinorrhea. Mouth/Throat: Pharynx: No oropharyngeal exudate or posterior oropharyngeal erythema. Eyes: General: No scleral icterus. Right eye: No discharge. Left eye: No discharge. Extraocular Movements: Extraocular movements intact. Conjunctiva/sclera: Conjunctivae normal. Pupils: Pupils are equal, round, and reactive to light. Neck: Vascular: No carotid bruit. Cardiovascular: Rate and Rhythm: Normal rate and regular rhythm. Pulmonary: Effort: Pulmonary effort is normal. No respiratory distress. Breath sounds: Normal breath sounds. No wheezing, rhonchi or rales. Abdominal: General: Bowel sounds are normal. There is no distension. Palpations: Abdomen is soft. There is no mass. Tenderness: There is no abdominal tenderness. There is no right CVA tenderness, left CVA tenderness, guarding or rebound. Hernia: No hernia is present. Musculoskeletal: General: No swelling, tenderness, deformity or signs of injury. Normal range of motion. Cervical back: Normal range of motion and neck supple. No rigidity or tenderness. Right lower leg: No edema. Left lower leg: No edema. Comments: Lumbar drain and surgical site incision dressing intact Lymphadenopathy: Cervical: No cervical adenopathy. Skin: General: Skin is warm and dry. Capillary Refill: Capillary refill takes less than 2 seconds. Coloration: Skin is not jaundiced or pale. Findings: No bruising, erythema, lesion or rash. Neurological: General: No focal deficit present. Mental Status: He is alert. Cranial Nerves: No cranial nerve deficit. Sensory: No sensory deficit. Motor: No weakness. Psychiatric: Mood and Affect: Mood normal. Behavior: Behavior normal. Judgment: Judgment normal. Lab Results Component Value Date NA 135 11/14/2022 K 5.4 (H) 11/14/2022 CL 106 11/14/2022 CO2 18 (L) 11/14/2022 BUN 38 (H) 11/14/2022 CREATININE 1.49 (H) 11/14/2022 GLUCOSE 162 (H) 11/14/2022 CALCIUM 8.1 (L) 11/14/2022 Lab Results Component Value Date WBC 11.1 (H) 11/14/2022 HGB 9.7 (L) 11/14/2022 HCT 30.1 (L) 11/14/2022 MCV 93.5 11/14/2022 PLT 181 11/14/2022 Additional results since admission have been reviewed. No components found for: LABA1C No components found for: LFT IMAGES: FL GUIDANCE OR USE ONLY - NON RESULTABLE There is no interpretation needed for this exam. FL GUIDANCE OR USE ONLY - NON RESULTABLE There is no interpretation needed for this exam. No echocardiogram results found for the past 12 months Associated Order(s): IP CONSULT TO ANESTHESIOLOGY - ACUTE PAIN SERVICE Images from the original note were not included. PAGING: The Acute Pain Service providers are available exclusively via Advise Only SECURE CHAT. APS does not utilize pagers. 11/14/2022 Lab Results Component Value Date CREATININE 1.49 (H) 11/14/2022 Discharge Recommendations: Percocet 5/325. 1 tab q6h prn Pain Management Adjuvants: 07 --> 0700 11/13/2022 Scheduled APAP 3250 mg Gabapentin 300 mg Lidocaine patches x1 PRN Hydromorphone 0.5 mg Tizanidine 4 mg Oxycodone 40 mg Assessment / Pain Management Plan: Acute Postsurgical Back pain Multimodal pain regimen: BLOCK: quadratus lumborum 11/13/22 Continue Acetaminophen 650 mg po q4h scheduled ATC. Continue Gabapentin - per primary team Continue Lidocaine patch x 1. Cut and place as needed. Continue Hydromorphone 0.25 mg - 0.5 mg IVP q4h prn moderate to severe breakthrough pain. Please utilize oral medications first. Continue Tizanidine - per primary Continue Oxycodone 5 - 10 mg po q4h prn moderate to severe breakthrough pain. Continue Naloxone 0.4 mg IVP prn opioid reversal. PRN if respiratory rate is less than 6/min and patient is difficult to arouse then notify physician STAT. Mix 9 mL of sodium chloride 0.9% with 0.4 mg (1 mL) of naloxone (NARCAN) in 10 mL syringe. (Note: dilution is 0.04 mg/mL) Give 0.08 mg (2 mL of special dilution), slow IV push, repeat up to 0.4 mg (10 mL) or until patient is responsive to physical stimulation and respiratory rate is equal to or greater than 6 breaths/min. Continue to observe, if no response within 3 minutes of administration of 0.4 mg (10 mL) total, repeat dose (0.4 mg as administered previously). Lumbar instability S/p L2-S1 fusion 11/13/22 See #1 Constipation At risk for opioid induced constipation Patient currently receiving opioids for pain management necessitating a bowel regimen. Recommend initiating scheduled Sennakot-S 8.6/50mg, 1 tablet PO BID. Would also recommend Milk of Magnesia 400mg/5ml, administer 30mL by mouth daily PRN. Opioid Use Acute: Expected to be short term post op pain, see #1 OARRS reviewed for past two years. (Recurrent Rx throughout 2021, Intermittent Loma Mar Rx in 2022, last Rx filled 09/30/22) Reviewed and educated patient on responsible use of opioids: after surgery, it can be normal to experience pain. If it is mild and you can move about without great difficulty or discomfort, you may not need to take pain medication. It is very important to take your pain medication only as needed. Avoiding excessive or unnecessary medication, will enable you to progress your activity each day to improve your muscle tone and movement, deep breathing, digestion, circulation and your body's ability to heal itself. Will follow. Plan discussed with patient who appears to understand and agrees. Subjective: We have been asked to see this 72 y.o. male for postoperative pain management s/p L2-S1 fusion 11/13/22 Reviewed EKG 11/06/22 DARWIN, no pages. On arrival, pt sitting in bedside chair. Pt appears well, comfortable. Pt talkative and cooperative throughout exam, happy with current pain regimen. Pain controlled. Discussed outpatient pain medication regimen, pt states that his outpatient pain management provider prescribes him the following medications: Gabapentin, Tizanidine, L[place] 10-325 mg PRN (rarely uses), Dilaudid 4 mg PRN (rarely uses), and fentanyl patches PRN (has never opened/used). He states he relies more so on Tylenol for pain control at home and uses L[place] Mar on the days he is very active. Tolerating diet, denies n/v. Patient educated on pain regimen, aware that -oxycodone, dilaudid are PRN and patient must ask for these medications when needed. Educated patient to utilize oral pain medications as first line and reserve IV pain medications for severe breakthrough pain. Pt is realistic about pain control: Not all pain will be taken away, but pain should be tolerable/manageable with current regimen. Pt instructed to have staff page APS if pain becomes uncontrolled when utilizing present regimen. Pt agreeable, denies further questions. PMH reviewed below Sedation score: 1: Awake and alert Pain Severity: moderate Pain Location: Back Pain Quality: tender Aggravating Factors: Moving Alleviating Factors: Rest/Pain medications Pain Management: [facility] The patient's medical history and physical assessment, medications, allergies, patient's current medical condition, imaging, and labs were reviewed as part of this consultation. [x] Patient's Medications have been reviewed. [x] Patient's OARRS report (PDMP) have been reviewed. Social History Tobacco Use Smoking Status Former Packs/day: 1.50 Years: 30.00 Pack years: 45.00 Types: Cigarettes Quit date: 2017 Years since quittin.5 Smokeless Tobacco Never Social History Substance and Sexual Activity Alcohol Use Never Social History Substance and Sexual Activity Drug Use Never Objective Findings: Height: 172.7 cm (5' 8 ) Weight: 111 kg (244 lb 6.4 oz) BMI (Calculated): 37.17 Vital signs: Blood pressure 108/73, pulse 72, temperature 37.2 C (98.9 F), temperature source Temporal, resp. rate 16, height 1.727 m (5' 8 ), weight 111 kg (244 lb 6.4 oz), SpO2 93 %. Allergies: Patient has no known allergies. 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 Past Surgical History: Procedure Laterality Date BACK SURGERY 05/2014 lumbar CARDIAC CATHETERIZATION 09/08/2016 CATARACT EXTRACTION Bilateral 02/2013 COLONOSCOPY 04/09/2016 LUMBAR FUSION 11/13/2022 L2-S1 LUNG TRANSPLANT Left 05/2020 RT/LT HEART CATHETERS (HISTORICAL) Bilateral 11/28/2019 SHOULDER SURGERY Left 10/2015 arthroscopy for RCR SQUAMOUS CELL CARCINOMA EXCISION Left forearm STENT INSERTION (HISTORICAL) 07/13/2006 heart Family History Problem Relation Name Age of Onset Heart failure Father Patient Active Problem List Diagnosis Lumbar stenosis with neurogenic claudication Review of Systems Constitutional: Negative for chills and fever. HENT: Negative for trouble swallowing. Eyes: Negative for visual disturbance. Respiratory: Negative for chest tightness and shortness of breath. Cardiovascular: Negative for chest pain and palpitations. Gastrointestinal: Negative for abdominal pain, nausea and vomiting. Genitourinary: Negative for difficulty urinating (boggs) and hematuria. Musculoskeletal: Positive for back pain. Skin: Negative for color change. Neurological: Negative for dizziness and light-headedness. Psychiatric/Behavioral: Negative for agitation and confusion. Physical Exam Vitals and nursing note reviewed. HENT: Head: Normocephalic. Cardiovascular: Rate and Rhythm: Normal rate. Pulmonary: Effort: Pulmonary effort is normal. No respiratory distress. Abdominal: Tenderness: There is no guarding. Genitourinary: Comments: Boggs catheter in place Musculoskeletal: General: Tenderness present. Skin: General: Skin is warm and dry. Comments: Surgical drain in place Neurological: Mental Status: He is alert and oriented to person, place, and time. Psychiatric: Mood and Affect: Mood normal. Behavior: Behavior normal. PAGING: The Acute Pain Service providers are available exclusively via Advise Only SECURE CHAT. APS does not utilize pagers. documented in this encounter [facility] 11-14-2022 Note Department of Neuros urgery Progress Note SUBJECTIVE: s/p L2-S1 fusion. He is doing well, complaining of incisional pain. Reports improvement in pre-op back pain and leg weakness. Has ambulated with OT, sitting up to chair. Boggs in place. Drain 100 ml last shift. OBJECTIVE Physical BP 127/84 (BP Location: Left arm, Patient Position: Sitting) Pulse 83 Temp 37.3 ?C (99.1 ?F) (Temporal) Resp 16 Ht 5' 8 (1.727 m) Wt 244 lb 6.4 oz (111 kg) SpO2 95% BMI 37.16 kg/m? NEUROLOGIC: Alert and oriented Motor strength 5/5 LE Sensation intact to light touch Dressing C/D/I, CINDY drain in place ASSESSMENT AND PLAN 72 y.o. male POD1 s/p L2-S1 fusion by Dr Jaimes. He is recovering as expected with improvement in pre-op symptoms. Will keep drain in today. Remove boggs, PT/OT evaluation, mobilize, pain control. Likely discharge in 1-2 days pending drain output. Roxy Rangel PA-C [facility] 11-14-2022 Plan of care note Problem: Pain - Adult Goal: Verbalizes/displays adequate comfort level or baseline comfort level Outcome: Progressing Flowsheets (Taken 11/14/2022 1104) Verbalizes/displays adequate comfort level or baseline comfort level: Encourage patient to monitor pain and request assistance Assess pain using appropriate pain scale Problem: Safety - Adult Goal: Free from fall injury Outcome: Progressing Flowsheets (Taken 11/14/2022 1104) Free from fall injury: Instruct family/caregiver on patient safety Based on caregiver fall risk screen, instruct family/caregiver to ask for assistance with transferring if caregiver noted to have fall risk factors [facility] 11-14-2022 Consult note Associated Order (s): IP CONSULT TO ANESTHESIOLOGY - ACUTE PAIN SERVICE Images from the original note were not included. PAGING: The Acute Pain Service providers are available exclusively via Advise Only SECURE CHAT. APS does not utilize pagers. 11/14/2022 Lab Results Component Value Date CREATININE 1.49 (H) 11/14/2022 Discharge Recommendations: Percocet 5/325. 1 tab q6h prn Pain Management Adjuvants: 0700 --> 0700 11/13/2022 Scheduled APAP 3250 mg Gabapentin 300 mg Lidocaine patches x1 PRN Hydromorphone 0.5 mg Tizanidine 4 mg Oxycodone 40 mg Assessment / Pain Management Plan: Acute Postsurgical Back pain Multimodal pain regimen: BLOCK: quadratus lumborum 11/13/22 Continue Acetaminophen 650 mg po q4h scheduled ATC. Continue Gabapentin - per primary team Continue Lidocaine patch x 1. Cut and place as needed. Continue Hydromorphone 0.25 mg - 0.5 mg IVP q4h prn moderate to severe breakthrough pain. Please utilize oral medications first. Continue Tizanidine - per primary Continue Oxycodone 5 - 10 mg po q4h prn moderate to severe breakthrough pain. Continue Naloxone 0.4 mg IVP prn opioid reversal. PRN if respiratory rate is less than 6/min and patient is difficult to arouse then notify physician STAT. Mix 9 mL of sodium chloride 0.9% with 0.4 mg (1 mL) of naloxone (NARCAN) in 10 mL syringe. (Note: dilution is 0.04 mg/mL) Give 0.08 mg (2 mL of special dilution), slow IV push, repeat up to 0.4 mg (10 mL) or until patient is responsive to physical stimulation and respiratory rate is equal to or greater than 6 breaths/min. Continue to observe, if no response within 3 minutes of administration of 0.4 mg (10 mL) total, repeat dose (0.4 mg as administered previously). Lumbar instability S/p L2-S1 fusion 11/13/22 See #1 Constipation At risk for opioid induced constipation Patient currently receiving opioids for pain management necessitating a bowel regimen. Recommend initiating scheduled Sennakot-S 8.6/50mg, 1 tablet PO BID. Would also recommend Milk of Magnesia 400mg/5ml, administer 30mL by mouth daily PRN. Opioid Use Acute: Expected to be short term post op pain, see #1 OARRS reviewed for past two years. (Recurrent Rx throughout 2021, Intermittent Loma Mar Rx in 2022, last Rx filled 09/30/22) Reviewed and educated patient on responsible use of opioids: after surgery, it can be normal to experience pain. If it is mild and you can move about without great difficulty or discomfort, you may not need to take pain medication. It is very important to take your pain medication only as needed. Avoiding excessive or unnecessary medication, will enable you to progress your activity each day to improve your muscle tone and movement, deep breathing, digestion, circulation and your body's ability to heal itself. Will follow. Plan discussed with patient who appears to understand and agrees. Subjective: We have been asked to see this 72 y.o. male for postoperative pain management s/p L2-S1 fusion 11/13/22 Reviewed EKG 11/06/22 rosey GRANADOS pages. On arrival, pt sitting in bedside chair. Pt appears well, comfortable. Pt talkative and cooperative throughout exam, happy with current pain regimen. Pain controlled. Discussed outpatient pain medication regimen, pt states that his outpatient pain management provider prescribes him the following medications: Gabapentin, Tizanidine, [place] 10-325 mg PRN (rarely uses), Dilaudid 4 mg PRN (rarely uses), and fentanyl patches PRN (has never opened/used). He states he relies more so on Tylenol for pain control at home and uses L[place] on the days he is very active. Tolerating diet, denies n/v. Patient educated on pain regimen, aware that -oxycodone, dilaudid are PRN and patient must ask for these medications when needed. Educated patient to utilize oral pain medications as first line and reserve IV pain medications for severe breakthrough pain. Pt is realistic about pain control: Not all pain will be taken away, but pain should be tolerable/manageable with current regimen. Pt instructed to have staff page APS if pain becomes uncontrolled when utilizing present regimen. Pt agreeable, denies further questions. PMH reviewed below Sedation score: 1: Awake and alert Pain Severity: moderate Pain Location: Back Pain Quality: tender Aggravating Factors: Moving Alleviating Factors: Rest/Pain medications Pain Management: [facility] The patient's medical history and physical assessment, medications, allergies, patient's current medical condition, imaging, and labs were reviewed as part of this consultation. [x] Patient's Medications have been reviewed. [x] Patient's OARRS report (PDMP) have been reviewed. Social History Tobacco Use Smoking Status Former Packs/day: 1.50 Years: 30.00 Pack years: 45.00 Types: Cigarettes Quit date: 2017 Years since quittin.5 Smokeless Tobacco Never Social History Substance and Sexual Activity Alcohol Use Never Social History Substance and Sexual Activity Drug Use Never Objective Findings: Height: 172.7 cm (5' 8 ) Weight: 111 kg (244 lb 6.4 oz) BMI (Calculated): 37.17 Vital signs: Blood pressure 108/73, pulse 72, temperature 37.2 C (98.9 F), temperature source Temporal, resp. rate 16, height 1.727 m (5' 8 ), weight 111 kg (244 lb 6.4 oz), SpO2 93 %. Allergies: Patient has no known allergies. 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 Past Surgical History: Procedure Laterality Date BACK SURGERY 05/2014 lumbar CARDIAC CATHETERIZATION 09/08/2016 CATARACT EXTRACTION Bilateral 02/2013 COLONOSCOPY 04/09/2016 LUMBAR FUSION 11/13/2022 L2-S1 LUNG TRANSPLANT Left 05/2020 RT/LT HEART CATHETERS (HISTORICAL) Bilateral 11/28/2019 SHOULDER SURGERY Left 10/2015 arthroscopy for RCR SQUAMOUS CELL CARCINOMA EXCISION Left forearm STENT INSERTION (HISTORICAL) 07/13/2006 heart Family History Problem Relation Name Age of Onset Heart failure Father Patient Active Problem List Diagnosis Lumbar stenosis with neurogenic claudication Review of Systems Constitutional: Negative for chills and fever. HENT: Negative for trouble swallowing. Eyes: Negative for visual disturbance. Respiratory: Negative for chest tightness and shortness of breath. Cardiovascular: Negative for chest pain and palpitations. Gastrointestinal: Negative for abdominal pain, nausea and vomiting. Genitourinary: Negative for difficulty urinating (boggs) and hematuria. Musculoskeletal: Positive for back pain. Skin: Negative for color change. Neurological: Negative for dizziness and light-headedness. Psychiatric/Behavioral: Negative for agitation and confusion. Physical Exam Vitals and nursing note reviewed. HENT: Head: Normocephalic. Cardiovascular: Rate and Rhythm: Normal rate. Pulmonary: Effort: Pulmonary effort is normal. No respiratory distress. Abdominal: Tenderness: There is no guarding. Genitourinary: Comments: Boggs catheter in place Musculoskeletal: General: Tenderness present. Skin: General: Skin is warm and dry. Comments: Surgical drain in place Neurological: Mental Status: He is alert and oriented to person, place, and time. Psychiatric: Mood and Affect: Mood normal. Behavior: Behavior normal. PAGING: The Acute Pain Service providers are available exclusively via Epic SECURE CHAT. APS does not utilize pagers. T [facility] [employer] Work Phone: 11-14-2022 Note Formatting of this n ote might be different from the original. Printer Machine following case for Discharge Needs. [facility] 11-14-2022 Note Formatting of this n ote might be different from the original. [employer]inter [employer] following case for Discharge Needs. T [facility] 11-13-2022 Note Patient: Rickie cordero Procedure Summary Date: 11/13/22 Room / Location: [address] Operating Room Anesthesia Start: 729 Anesthesia Stop: 1138 Procedure: L2-S1 FUSION POSTERIOR (Back) Diagnosis: Other intervertebral disc degeneration, lumbar region (Other intervertebral disc degeneration, lumbar region [M51.36]) Surgeons: Romulo Jaimes MD Responsible Provider: Dieter Denis MD Anesthesia Type: general ASA Status: 4 Anesthesia Type: general Vitals Value Taken Time BP 121/71 11/13/22 1140 Temp 97 11/13/22 1142 Pulse 74 11/13/22 1141 Resp 20 11/13/22 1141 SpO2 99 % 11/13/22 1141 Vitals shown include unvalidated device data. Anesthesia Post Evaluation Patient location during evaluation: PACU Patient participation: complete - patient participated Level of consciousness: awake and alert Pain management: satisfactory to patient Airway patency: patent Dental Injury: no Cardiovascular status: acceptable, blood pressure returned to baseline and hemodynamically stable Respiratory status: acceptable and spontaneous ventilation Hydration status: euvolemic Nausea/Vomiting: controlled No notable events documented. Patient can be discharged once all PACU criteria has been met. [facility] 11-13-2022 Note Patient: Rickie cordero Procedure Summary Date: 11/13/22 Room / Location: [address] Operating Room Anesthesia Start: 729 Anesthesia Stop: 113 Procedure: L2-S1 FUSION POSTERIOR (Back) Diagnosis: Other intervertebral disc degeneration, lumbar region (Other intervertebral disc degeneration, lumbar region [M51.36]) Surgeons: Romulo Jaimes MD Responsible Provider: Dieter Denis MD Anesthesia Type: general ASA Status: 4 Anesthesia Type: general Vitals Value Taken Time BP 121/71 11/13/22 1141 Temp 97 11/13/22 1141 Pulse 75 11/13/22 1140 Resp 18 11/13/22 1140 SpO2 98 11/13/22 1141 Vitals shown include unvalidated device data. Anesthesia Post Evaluation Patient location during evaluation: PACU Patient participation: complete - patient participated Level of consciousness: awake and alert Pain management: satisfactory to patient Multimodal analgesia pain management approach Airway patency: patent Two or more strategies used to mitigate risk of obstructive sleep apnea Cardiovascular status: acceptable and hemodynamically stable Respiratory status: acceptable Hydration status: acceptable No notable events documented. MIPS #430 PONV Patient received an inhalational anesthetic (4554F) Patient exhibits three or more risk factors for PONV (4556F) Patient received at leaset 2 prophylactic Rx PONV anti-emtic agents of different classes preop and/or intraop (G9775) MIPS # 424 Perioperative Temperature Management Anesthesia time was 60 minutes or longer (4255F) Anesthesai administered was General (inhalational or TIVA) or Neuraxial block (X0424) At least one body temperature greater than 95.8F/35.5C achieved within the 30 mins immediately prior to or the 15 minutes immediately following anesthesia end time (G9771) MIPS #477 Multimodal Pain Management Not emergent case Patient was administered multimodal pain management (two or more drugs and/or interventions excluding systemic opioids) in the periopeartive period occurring at some time between 6 hours prior to anesthesia start time until discharged from PACU (G2148) MIPS #404 Anesthesiology Smoking Abstinence The patient is not a current smoker (e.g. cigarette, cigar, pipe, e-cigarette/vaping/marijuana) If no stop here (XX404) I completed my handoff to the receiving clinician during which we: 1. Identified the patient 2. Identified the responsible provider 3. Reviewed the pertinent medical history 4. Discussed the surgical course 5. Reviewed intra-op anesthesia management and issues during anesthesia 6. Set expectations for post-procedure period 7. Allowed opportunity for questions and acknowledgement of understanding. [facility] 11-13-2022 Note Peripheral Block Time Out: 11/13/2022 11:20 AM Patient location during procedure: Procedural Start time: 11/13/2022 11:21 AM End time: 11/13/2022 11:28 AM Reason for block: at surgeon's request and post-op pain management Staffing Performed: CURRENCY COUNTER Resident/CURRENCY COUNTER: THERESA Cisneros CRNA Preanesthetic Checklist Completed: patient identified, IV checked, site marked, risks and benefits discussed, surgical consent and timeout performed Region: Truncal Primary: Quadratus Lumborum Peripheral Block Prep: ChloraPrep Patient monitoring: heart rate, customer orders clerk, continuous pulse ox and continuous capnometry O2: ETT/LMA Laterality: bilateral Injection technique: single-shot Guidance: ultrasound guided -image retained in chart, tip of the needle identified by ultraound during injection. Needle Needle: 21G X 110 mm Additional Notes 11/13/2022 11:21 AM Assessment Injection assessment: negative aspiration for heme, no paresthesia on injection, incremental injection, local visualized surrounding nerve on ultrasound and transient paresthesias Heart rate change: no Slow fractionated injection: yes Required Documentation: Relevant anatomy identified (Nerves, Vessels, Muscles), Negative for blood on aspiration, Local anesthetic injected incrementally with intermittent aspiration every 5 mL, Normal resistance with injection, Local anesthetic spread visualized around nerves or plane., No EKG changes noted and No symptoms of toxicityMedications tvyWUOANqswmm-xcqetkadhje-dsagcuyhy ne (TAP) syringe - Injection 40 mL - 11/13/2022 11:21:00 AM bupivacaine liposome (Exparel) 1.3 % injection - Injection 20 mL - 11/13/2022 11:21:00 AM [facility] 11-13-2022 Note Formatting of this n ote might be different from the original. Message sent to carol Robledo via [employer] [facility] 11-13-2022 Note Formatting of this n ote might be different from the original. Message sent to Jovani via [employer] [facility] 11-13-2022 Note Formatting of this n ote might be different from the original. Updated carol Robledo on the phone. [facility] 11-13-2022 Note Formatting of this n ote might be different from the original. Updated carol Robledo on the phone. [facility] 11-13-2022 Note Formatting of this n ote might be different from the original. Message sent to carol Robledo via [employer] Messenger. [facility] 11-13-2022 Note Formatting of this n ote might be different from the original. Message sent to carol Robledo via [employer]. T [facility] 11-13-2022 Note Peripheral IV Date/Time: 11/13/2022 7:55 AM Placement Needle size: 18 G Laterality: right Location: wrist Local anesthetic: injectable Site prep: chlorhexidine Technique: ultrasound guided Attempts: 1 [facility] 11-13-2022 Note Arterial Line: Date/Time: 11/13/2022 7:49 AM An arterial line was placed Procedure performed using ultrasound guidance - Image permanently retained with wire or catheter in vein.in the Procedural for the following indication(s): continuous blood pressure monitoring. A 20 gauge (size), 1 and 3/4 inch (length), Arrow (type) catheter was placed, into the Right radial artery, secured by tape and Tegaderm. Events: patient tolerated procedure well with no complications. Staffing Performed: CURRENCY COUNTER and SRNA Resident/CURRENCY COUNTER: THERESA Palomares CRNA Performed by: THERESA Palomares CRNA Authorized by: THERESA Palomares CRNA [facility] 11-13-2022 Note Airway Date/Time: 11/13/2022 7:41 AM Urgency: scheduled General Information and Staff Patient location during procedure: Procedural Anesthesiologist: Dieter Denis MD Resident/CURRENCY COUNTER: THERESA Palomares CRNA Performed: MK CAPUTO and anesthesiologist Performed by: THERESA Palomares CRNA Authorized by: THERESA Palomares CRNA Indications and Patient Condition Indications for airway management: anesthesia and airway protection Sedation level: Asleep Preoxygenated: yes Patient position: sniffing Mask difficulty assessment: 1 - vent by mask Final Airway Details Final airway type: endotracheal airway Successful airway: ETT Cuffed: yes Successful intubation technique: video laryngoscopy Facilitating devices/methods: intubating stylet Endotracheal tube insertion site: oral Blade: Lincoln scope Blade size: #4 ETT size (mm): 8.0 Cormack-Lehane Classification: grade I - full view of glottis Placement verified by: capnometry Measured from: lips Number of attempts at approach: 1 [facility] 11-13-2022 Note History Of Present I llness Rickie Ortiz is a 72 y.o. male presenting with chronic back pain that is mechanical in nature. Past Medical History He has a past medical history of Arthritis, COPD (chronic obstructive pulmonary disease) (HCC), Coronary artery disease, Hyperlipidemia, Hypertension, and Squamous cell cancer of skin of left forearm. Surgical History He has a past surgical history that includes Lung transplant (Left, 05/2020); rt/lt heart catheters (historical) (Bilateral, 11/28/2019); Squamous cell carcinoma excision (Left); Shoulder surgery (Left, 10/2015); Back surgery (05/2014); stent insertion (historical) (07/13/2006); Cardiac catheterization (09/08/2016); Colonoscopy (04/09/2016); and Cataract extraction (Bilateral, 02/2013). Social History He reports that he quit smoking about 6 years ago. His smoking use included cigarettes. He has a 45.00 pack-year smoking history. He has never used smokeless tobacco. He reports that he does not drink alcohol and does not use drugs. Allergies Patient has no known allergies. Medications Medications Prior to Admission Medication Sig Dispense Refill Last Dose acetaminophen (Tylenol 8 Hour) 650 MG ER tablet Take 1,300 mg by mouth every 6 hours as needed. Past Week aspirin 81 MG EC tablet Take 81 mg by mouth daily. 11/13/2022 at 0300 atorvastatin (Lipitor) 20 MG tablet Take 20 mg by mouth daily. 11/12/2022 azithromycin (Zithromax) 250 MG tablet Take by mouth three times a week. Mon, Wed., 11/12/2022 calcium citrate 315 mg + D2 6.25 mcg tablet Take 1 tablet by mouth in the morning and 1 tablet in the evening. 11/12/2022 carvedilol (Coreg) 3.125 MG tablet Take 3.125 mg by mouth in the morning and 3.125 mg in the evening. 11/12/2022 cetirizine (ZyrTEC) 10 MG tablet Take 10 mg by mouth in the morning. 11/12/2022 Cholecalciferol (Vitamin D) 50 MCG (1999 UT) capsule Take by mouth daily. 11/13/2022 at 0300 ferrous sulfate 325 (65 Fe) MG EC tablet Take 325 mg by mouth in the morning. 11/12/2022 fludrocortisone (Florinef) 0.1 MG tablet Take 0.1 mg by mouth in the morning. Past Week gabapentin (Neurontin) 300 MG capsule Take 300 mg by mouth 2 times daily. 11/13/2022 at 0300 HYDROcodone-acetaminophen ([place]) 10-325 MG tablet Take 1 tablet by mouth in the morning and 1 tablet in the evening. Past Month magnesium oxide (Mag-Ox) Take 400 mg by mouth in the morning and 400 mg in the evening. 11/13/2022 at 0300 Multiple Vitamins-Minerals (Therapeutic-M) tablet Take 1 tablet by mouth in the morning. 11/12/2022 pantoprazole (ProtoNix) 40 MG EC tablet Take 40 mg by mouth in the morning. 11/13/2022 at 0300 predniSONE (Deltasone) 5 MG tablet Take 5 mg by mouth in the morning. 11/12/2022 tacrolimus (Prograf) 0.5 MG capsule Take 1.5 mg by mouth 2 times daily. 11/13/2022 at 0300 tamsulosin (Flomax) 0.4 MG 24 hr capsule TAKE TWO CAPSULES AT BEDTIME 11/12/2022 tiZANidine (Zanaflex) 4 MG tablet Take 1 tablet by mouth Nightly as needed. 11/12/2022 chlorhexidine (Hibiclens) 4 % external liquid Apply topically Daily as needed for wound care. 118 mL 0 fentaNYL (Duragesic) 12 MCG/HR apply ONE PATCH transdermally every 72 HOURS DIRECTED HYDROmorphone (Dilaudid) 4 MG tablet Take 4 mg by mouth every 8 hours as needed. More than a month mycophenolate (Cellcept) 500 MG tablet Take 1,000 mg by mouth in the morning and 1,000 mg in the evening. Unknown sulfamethoxazole-trimethoprim (Bactrim DS) 800-160 MG tablet Take 1 tablet by mouth three times a week. Mon, Wed., Fri Review of Systems + chronic mechanical back pain Physical Exam Weakness in the RLE distally 06/15 (baseline) Last Recorded Vitals Blood pressure 132/85, pulse 65, temperature 36.7 ?C (98.1 ?F), temperature source Temporal, resp. rate 18, height 5' 8 (1.727 m), weight 244 lb 6.4 oz (111 kg), SpO2 95 %. Relevant Results MRI L spine shows postoperative changes L2-S1. There is scar tissue in the lateral recesses bilaterally. There is no residual central canal stenosis. There is a significant amount of fluid in the facet joints at multiple levels. Assessment/Plan Principal Problem: Lumbar stenosis with neurogenic claudication L2-S1 fusion Risks/Benefits of the surgery have been discussed with the patient including but not limited to bleeding and hematoma formation, infection, CSF leak, nerve root injury, permanent weakness and . Pt and family understand and agree to the procedure. [facility] 11-13-2022 Note Formatting of this n ote might be different from the original. OPERATIVE NOTE Patient Name: Rickie Ortiz : 1950 DATE OF PROCEDURE: 11/13/2022 SURGEON: Romulo Jaimes MD INFECTION PREVENTION COORDINATOR: Nisa Carmen CNP PREOPERATIVE DIAGNOSES: Lumbar instability POSTOPERATIVE DIAGNOSES: Same PROCEDURE: L2-S1 fusion ANESTHESIA: General ESTIMATED BLOOD LOSS: 100 INDICATION FOR PROCEDURE: Mr. Ortiz is a 72-year-old gentleman who presented with chronic mechanical back pain. He had a history of L2, L3, L4, L5 laminectomy in the past. This helped with his leg pain but is still left with significant mechanical back pain worse with bending lifting twisting. MRI showed significant mount of fluid in the facet joints L2-S1. Risks and benefits of lumbar fusion were discussed with him, he wished to proceed. DESCRIPTION OF PROCEDURE: Patient was brought to the operating room general endotracheal seizure was induced. He had spinal cord monitoring leads placed. He was turned prone on a spinal Stefan table, his face chest hips arms legs feet were all padded appropriately. C-arm was brought in field approximate the L1-L2 level, this marked surgical marker and he was prepped and draped in the normal sterile fashion. After appropriate timeout identifying the patient, the level of surgery the type surgery point 5% Marcaine with epinephrine was instilled future incision. Skin incision was made dissection carried out to expose the spinous process of L1 and the lamina of L1. This was the lowest lamina left in the lumbar spine levels confirmed indirectly via C arm. We confirmed that this was the L1 level then we dissected laterally on the facets to identify the transverse processes of L2, L3, L4, L5, and S1. Also the pars interarticularis at each level. When the exposure was complete bilaterally there was thorough decortication of the transverse processes lateral facets and pars interarticularis at each level. Then an O-arm scan was performed this allowed pedicle screws to be placed under live navigation at L1-2, L3, L4, L5, S1 bilaterally. Please note that during the exposure there was severe facet arthropathy multiple facets had large gaps between the superior and inferior parts of the facets. There was a pars defect at L4-L5 bilaterally. The screws were then placed under live navigation using the O-arm. Procedure to place the screws was as follows drill to make facilities flight check pilot hole followed by pedicle finder followed by pedicle feeler followed by tap followed by pedicle feeler followed by the screw. 6.5 x 50 mm screws were placed at L2, 6.5 x 45 mm screws were placed at L3-L4 and L5, 6.5 x 40 mm screws were placed at S1. There were no changes to the EMG nerve conduction monitoring when the screws were placed. After the screws were placed they were all stimulated they all stimulated at an acceptable level. Then there was additional decortication performed lateral facets and pars interarticularis at each level and then bone graft material was placed for posterolateral fusion. The wound was elie irrigated out. Then a 10 [place] round CINDY drain was placed. The muscle fascia was then closed with interrupted 0 Vicryl sutures followed another layer of interrupted 2-0 Vicryl sutures followed by subcuticular up to 3-0 Vicryl sutures with a running locked 3-0 nylon on the skin. Sterile dressing was placed. He was extubated taken recovery in stable fashion. All his spinal cord signals were the same at the end of the case compared to the beginning. There is no neurosurgical resident available to assist the case, the nurse practitioner assisted to provide suction retraction assistance with opening and closing allow the case to be performed safely. [facility] 11-13-2022 Note Formatting of this n ote is different from the original. 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 (Active) Urethral Catheter 16 Fr. (Active) Implants - XDCtronic Type Name Action Serial No. Osteobiologic SUB [id number] GRAFT DBM PUTTY GR - [id number] - [id number] Implanted [id number] Osteobiologic SUB 16875 GRAFT DBM PUTTY GRFT - [id number] - [id number] Implanted [id number] Bone BONE BMP PUTTY I-FACTOR 5.0CC - [id number] Implanted Bone BONE BMP PUTTY I-FACTOR 5.0CC - [id number] Implanted Spinal Hardware SCREW SPINAL 6.8QLS90IV - [id number] Implanted Spinal Hardware SCREW SPINAL [id number] - [id number] Implanted Spinal Hardware SCREW SPINAL 6.8WHS32HA - [id number] Implanted Spinal Hardware SCREW SET TI SPINAL BREAK OFF - [id number] Implanted Spinal Hardware DIA SPINE LUMBAR [id number] - [id number] Implanted Staff: Sales Promotion Manager: Nisa Glez RN Nurse Practitioner: THERESA Perez CNP Scrub Person: Marbella Cervantes RN Program Manager Environmental Planning: Elizabet Downs Findings: See op note Complications: None; patient tolerated the procedure well. Specimens Collected: Order Name Source Comment Collection Info Order Time POTASSIUM WITH MG REFLEX For patients on dialysis to draw potassium day of surgery 11/13/2022 6:14 AM PROTHROMBIN TIME If patient on coumadin within 4 days prior. 11/13/2022 6:14 AM Wound Class: Class I: Clean Blood Products: None Prophylactic Antibiotics: Procedure appropriate prophylactic antibiotic(s) given within 1 hour of surgical incision (two hours if receiving Vancomycin or flouroquinolone) [facility] 11-13-2022 Note Formatting of this n ote might be different from the original. OPERATIVE NOTE Patient Name: Rickie Ortiz : 1950 DATE OF PROCEDURE: 11/13/2022 SURGEON: Romulo Jaimes MD INFECTION PREVENTION COORDINATOR: Nisa Carmen CNP PREOPERATIVE DIAGNOSES: Lumbar instability POSTOPERATIVE DIAGNOSES: Same PROCEDURE: L2-S1 fusion ANESTHESIA: General ESTIMATED BLOOD LOSS: 100 INDICATION FOR PROCEDURE: Mr. Ortiz is a 72-year-old gentleman who presented with chronic mechanical back pain. He had a history of L2, L3, L4, L5 laminectomy in the past. This helped with his leg pain but is still left with significant mechanical back pain worse with bending lifting twisting. MRI showed significant mount of fluid in the facet joints L2-S1. Risks and benefits of lumbar fusion were discussed with him, he wished to proceed. DESCRIPTION OF PROCEDURE: Patient was brought to the operating room general endotracheal seizure was induced. He had spinal cord monitoring leads placed. He was turned prone on a spinal Stefan table, his face chest hips arms legs feet were all padded appropriately. C-arm was brought in field approximate the L1-L2 level, this marked surgical marker and he was prepped and draped in the normal sterile fashion. After appropriate timeout identifying the patient, the level of surgery the type surgery point 5% Marcaine with epinephrine was instilled future incision. Skin incision was made dissection carried out to expose the spinous process of L1 and the lamina of L1. This was the lowest lamina left in the lumbar spine levels confirmed indirectly via C arm. We confirmed that this was the L1 level then we dissected laterally on the facets to identify the transverse processes of L2, L3, L4, L5, and S1. Also the pars interarticularis at each level. When the exposure was complete bilaterally there was thorough decortication of the transverse processes lateral facets and pars interarticularis at each level. Then an O-arm scan was performed this allowed pedicle screws to be placed under live navigation at L1-2, L3, L4, L5, S1 bilaterally. Please note that during the exposure there was severe facet arthropathy multiple facets had large gaps between the superior and inferior parts of the facets. There was a pars defect at L4-L5 bilaterally. The screws were then placed under live navigation using the O-arm. Procedure to place the screws was as follows drill to make facilities flight check pilot hole followed by pedicle finder followed by pedicle feeler followed by tap followed by pedicle feeler followed by the screw. 6.5 x 50 mm screws were placed at L2, 6.5 x 45 mm screws were placed at L3-L4 and L5, 6.5 x 40 mm screws were placed at S1. There were no changes to the EMG nerve conduction monitoring when the screws were placed. After the screws were placed they were all stimulated they all stimulated at an acceptable level. Then there was additional decortication performed lateral facets and pars interarticularis at each level and then bone graft material was placed for posterolateral fusion. The wound was elie irrigated out. Then a 10 [place] round CINDY drain was placed. The muscle fascia was then closed with interrupted 0 Vicryl sutures followed another layer of interrupted 2-0 Vicryl sutures followed by subcuticular up to 3-0 Vicryl sutures with a running locked 3-0 nylon on the skin. Sterile dressing was placed. He was extubated taken recovery in stable fashion. All his spinal cord signals were the same at the end of the case compared to the beginning. There is no neurosurgical resident available to assist the case, the nurse practitioner assisted to provide suction retraction assistance with opening and closing allow the case to be performed safely. [facility] [employer] 11-13-2022 Note Formatting of this n ote is different from the original. 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 (Active) Urethral Catheter 16 Fr. (Active) Implants - Medtronic Type Name Action Serial No. Osteobiologic SUB 05760 GRAFT DBM PUTTY GRFT - [id number] - [id number] Implanted [id number] Osteobiologic SUB 52892 GRAFT DBM PUTTY GRFT - [id number] - [id number] Implanted [id number] Bone BONE BMP PUTTY I-FACTOR 5.0CC - [id number] Implanted Bone BONE BMP PUTTY I-FACTOR 5.0CC - [id number] Implanted Spinal Hardware SCREW SPINAL 6.7WOR18EF - [id number] Implanted Spinal Hardware SCREW SPINAL 6.2VYG55VS - [id number] Implanted Spinal Hardware SCREW SPINAL 6.3KZZ62MH - [id number] Implanted Spinal Hardware SCREW SET TI SPINAL BREAK OFF - [id number] Implanted Spinal Hardware DIA SPINE LUMBAR 5.2N740NN - [id number] Implanted Staff: Sales Promotion Manager: Nisa Glez RN Nurse Practitioner: Nisa Carmen APRN - [employer] Scrub Person: Marbella Cervantes RN Program Manager Environmental Planning: Elizabet Downs Findings: See op note Complications: None; patient tolerated the procedure well. Specimens Collected: Order Name Source Comment Collection Info Order Time POTASSIUM WITH MG REFLEX For patients on dialysis to draw potassium day of surgery 11/13/2022 6:14 AM PROTHROMBIN TIME If patient on coumadin within 4 days prior. 11/13/2022 6:14 AM Wound Class: Class I: Clean Blood Products: None Prophylactic Antibiotics: Procedure appropriate prophylactic antibiotic(s) given within 1 hour of surgical incision (two hours if receiving Vancomycin or flouroquinolone) [facility] 11-13-2022 History and physical note History Of Present Illness Rickie Ortiz is a 72 y.o. male presenting with chronic back pain that is mechanical in nature. Past Medical History He has a past medical history of Arthritis, COPD (chronic obstructive pulmonary disease) (HCC), Coronary artery disease, Hyperlipidemia, Hypertension, and Squamous cell cancer of skin of left forearm. Surgical History He has a past surgical history that includes Lung transplant (Left, 05/2020); rt/lt heart catheters (historical) (Bilateral, 11/28/2019); Squamous cell carcinoma excision (Left); Shoulder surgery (Left, 10/2015); Back surgery (05/2014); stent insertion (historical) (07/13/2006); Cardiac catheterization (09/08/2016); Colonoscopy (04/09/2016); and Cataract extraction (Bilateral, 02/2013). Social History He reports that he quit smoking about 6 years ago. His smoking use included cigarettes. He has a 45.00 pack-year smoking history. He has never used smokeless tobacco. He reports that he does not drink alcohol and does not use drugs. Allergies Patient has no known allergies. Medications Medications Prior to Admission Medication Sig Dispense Refill Last Dose acetaminophen (Tylenol 8 Hour) 650 MG ER tablet Take 1,300 mg by mouth every 6 hours as needed. Past Week aspirin 81 MG EC tablet Take 81 mg by mouth daily. 11/13/2022 at 0300 atorvastatin (Lipitor) 20 MG tablet Take 20 mg by mouth daily. 11/12/2022 azithromycin (Zithromax) 250 MG tablet Take by mouth three times a week. Mon, Wed., 11/12/2022 calcium citrate 315 mg + D2 6.25 mcg tablet Take 1 tablet by mouth in the morning and 1 tablet in the evening. 11/12/2022 carvedilol (Coreg) 3.125 MG tablet Take 3.125 mg by mouth in the morning and 3.125 mg in the evening. 11/12/2022 cetirizine (ZyrTEC) 10 MG tablet Take 10 mg by mouth in the morning. 11/12/2022 Cholecalciferol (Vitamin D) 50 MCG (1999 UT) capsule Take by mouth daily. 11/13/2022 at 0300 ferrous sulfate 325 (65 Fe) MG EC tablet Take 325 mg by mouth in the morning. 11/12/2022 fludrocortisone (Florinef) 0.1 MG tablet Take 0.1 mg by mouth in the morning. Past Week gabapentin (Neurontin) 300 MG capsule Take 300 mg by mouth 2 times daily. 11/13/2022 at 0300 HYDROcodone-acetaminophen ([place]) 10-325 MG tablet Take 1 tablet by mouth in the morning and 1 tablet in the evening. Past Month magnesium oxide (Mag-Ox) Take 400 mg by mouth in the morning and 400 mg in the evening. 11/13/2022 at 0300 Multiple Vitamins-Minerals (Therapeutic-M) tablet Take 1 tablet by mouth in the morning. 11/12/2022 pantoprazole (ProtoNix) 40 MG EC tablet Take 40 mg by mouth in the morning. 11/13/2022 at 0300 predniSONE (Deltasone) 5 MG tablet Take 5 mg by mouth in the morning. 11/12/2022 tacrolimus (Prograf) 0.5 MG capsule Take 1.5 mg by mouth 2 times daily. 11/13/2022 at 0300 tamsulosin (Flomax) 0.4 MG 24 hr capsule TAKE TWO CAPSULES AT BEDTIME 11/12/2022 tiZANidine (Zanaflex) 4 MG tablet Take 1 tablet by mouth Nightly as needed. 11/12/2022 chlorhexidine (Hibiclens) 4 % external liquid Apply topically Daily as needed for wound care. 118 mL 0 fentaNYL (Duragesic) 12 MCG/HR apply ONE PATCH transdermally every 72 HOURS DIRECTED HYDROmorphone (Dilaudid) 4 MG tablet Take 4 mg by mouth every 8 hours as needed. More than a month mycophenolate (Cellcept) 500 MG tablet Take 1,000 mg by mouth in the morning and 1,000 mg in the evening. Unknown sulfamethoxazole-trimethoprim (Bactrim DS) 800-160 MG tablet Take 1 tablet by mouth three times a week. Mon, Wed., Fri Review of Systems + chronic mechanical back pain Physical Exam Weakness in the RLE distally 2/5 (baseline) Last Recorded Vitals Blood pressure 132/85, pulse 65, temperature 36.7 C (98.1 F), temperature source Temporal, resp. rate 18, height 5' 8 (1.727 m), weight 244 lb 6.4 oz (111 kg), SpO2 95 %. Relevant Results MRI L spine shows postoperative changes L2-S1. There is scar tissue in the lateral recesses bilaterally. There is no residual central canal stenosis. There is a significant amount of fluid in the facet joints at multiple levels. Assessment/Plan Principal Problem: Lumbar stenosis with neurogenic claudication L2-S1 fusion Risks/Benefits of the surgery have been discussed with the patient including but not limited to bleeding and hematoma formation, infection, CSF leak, nerve root injury, permanent weakness and . Pt and family understand and agree to the procedure. [facility] Aniika Phone: 11-13-2022 History and physical note History Of Present Illness Rickie Ortiz is a 72 y.o. male presenting with chronic back pain that is mechanical in nature. Past Medical History He has a past medical history of Arthritis, COPD (chronic obstructive pulmonary disease) (HCC), Coronary artery disease, Hyperlipidemia, Hypertension, and Squamous cell cancer of skin of left forearm. Surgical History He has a past surgical history that includes Lung transplant (Left, 05/2020); rt/lt heart catheters (historical) (Bilateral, 11/28/2019); Squamous cell carcinoma excision (Left); Shoulder surgery (Left, 10/2015); Back surgery (05/2014); stent insertion (historical) (07/13/2006); Cardiac catheterization (09/08/2016); Colonoscopy (04/09/2016); and Cataract extraction (Bilateral, 02/2013). Social History He reports that he quit smoking about 6 years ago. His smoking use included cigarettes. He has a 45.00 pack-year smoking history. He has never used smokeless tobacco. He reports that he does not drink alcohol and does not use drugs. Allergies Patient has no known allergies. Medications Medications Prior to Admission Medication Sig Dispense Refill Last Dose acetaminophen (Tylenol 8 Hour) 650 MG ER tablet Take 1,300 mg by mouth every 6 hours as needed. Past Week aspirin 81 MG EC tablet Take 81 mg by mouth daily. 11/13/2022 at 0300 atorvastatin (Lipitor) 20 MG tablet Take 20 mg by mouth daily. 11/12/2022 azithromycin (Zithromax) 250 MG tablet Take by mouth three times a week. Mon, Wed., 11/12/2022 calcium citrate 315 mg + D2 6.25 mcg tablet Take 1 tablet by mouth in the morning and 1 tablet in the evening. 11/12/2022 carvedilol (Coreg) 3.125 MG tablet Take 3.125 mg by mouth in the morning and 3.125 mg in the evening. 11/12/2022 cetirizine (ZyrTEC) 10 MG tablet Take 10 mg by mouth in the morning. 11/12/2022 Cholecalciferol (Vitamin D) 50 MCG (1999 UT) capsule Take by mouth daily. 11/13/2022 at 0300 ferrous sulfate 325 (65 Fe) MG EC tablet Take 325 mg by mouth in the morning. 11/12/2022 fludrocortisone (Florinef) 0.1 MG tablet Take 0.1 mg by mouth in the morning. Past Week gabapentin (Neurontin) 300 MG capsule Take 300 mg by mouth 2 times daily. 11/13/2022 at 0300 HYDROcodone-acetaminophen (L[place] Mar) 10-325 MG tablet Take 1 tablet by mouth in the morning and 1 tablet in the evening. Past Month magnesium oxide (Mag-Ox) Take 400 mg by mouth in the morning and 400 mg in the evening. 11/13/2022 at 0300 Multiple Vitamins-Minerals (Therapeutic-M) tablet Take 1 tablet by mouth in the morning. 11/12/2022 pantoprazole (ProtoNix) 40 MG EC tablet Take 40 mg by mouth in the morning. 11/13/2022 at 0300 predniSONE (Deltasone) 5 MG tablet Take 5 mg by mouth in the morning. 11/12/2022 tacrolimus (Prograf) 0.5 MG capsule Take 1.5 mg by mouth 2 times daily. 11/13/2022 at 0300 tamsulosin (Flomax) 0.4 MG 24 hr capsule TAKE TWO CAPSULES AT BEDTIME 11/12/2022 tiZANidine (Zanaflex) 4 MG tablet Take 1 tablet by mouth Nightly as needed. 11/12/2022 chlorhexidine (Hibiclens) 4 % external liquid Apply topically Daily as needed for wound care. 118 mL 0 fentaNYL (Duragesic) 12 MCG/HR apply ONE PATCH transdermally every 72 HOURS DIRECTED HYDROmorphone (Dilaudid) 4 MG tablet Take 4 mg by mouth every 8 hours as needed. More than a month mycophenolate (Cellcept) 500 MG tablet Take 1,000 mg by mouth in the morning and 1,000 mg in the evening. Unknown sulfamethoxazole-trimethoprim (Bactrim DS) 800-160 MG tablet Take 1 tablet by mouth three times a week. Mon, Wed., Fri Review of Systems + chronic mechanical back pain Physical Exam Weakness in the RLE distally 06/15 (baseline) Last Recorded Vitals Blood pressure 132/85, pulse 65, temperature 36.7 C (98.1 F), temperature source Temporal, resp. rate 18, height 5' 8 (1.727 m), weight 244 lb 6.4 oz (111 kg), SpO2 95 %. Relevant Results MRI L spine shows postoperative changes L2-S1. There is scar tissue in the lateral recesses bilaterally. There is no residual central canal stenosis. There is a significant amount of fluid in the facet joints at multiple levels. Assessment/Plan Principal Problem: Lumbar stenosis with neurogenic claudication L2-S1 fusion Risks/Benefits of the surgery have been discussed with the patient including but not limited to bleeding and hematoma formation, infection, CSF leak, nerve root injury, permanent weakness and . Pt and family understand and agree to the procedure. documented in this encounter [facility] 11-06-2022 Note Patient: Rickie cordero Procedure Information Date/Time: 07/06/23 0730 Procedure: L2-S1 FUSION POSTERIOR (Back) Location: [facility] OR [address] [place] [address] Operating Room Surgeons: Romulo Jaimes MD Past Medical History: Past Medical History: No date: Arthritis No date: COPD (chronic obstructive pulmonary disease) (HCC) No date: Coronary artery disease No date: Hyperlipidemia No date: Hypertension No date: Squamous cell cancer of skin of left forearm Past Surgical History: Past Surgical History: 05/2014: BACK SURGERY Comment: lumbar 09/08/2016: CARDIAC CATHETERIZATION 02/2013: CATARACT EXTRACTION; Bilateral 04/09/2016: COLONOSCOPY 05/2020: LUNG TRANSPLANT; Left 11/28/2019: RT/LT HEART CATHETERS (HISTORICAL); Bilateral 10/2015: SHOULDER SURGERY; Left Comment: arthroscopy for RCR No date: SQUAMOUS CELL CARCINOMA EXCISION; Left Comment: forearm 07/13/2006: STENT INSERTION (HISTORICAL) Comment: heart Social History: TOBACCO: reports that he quit smoking about 6 years ago. His smoking use included cigarettes. He has a 45.00 pack-year smoking history. He has never used smokeless tobacco. ETOH: reports no history of alcohol use. Social History Substance and Sexual Activity Drug Use Never Family History: Family History Problem Relation Name Age of Onset ? Heart failure Father Screening: unknown Clinical information reviewed: Tobacco Allergies Meds Surg Hx Physical Exam Airway Mallampati: IV TM distance: >3 FB Neck ROM: full Mouth Open: limited Cardiovascular Dental (+) chipped Pulmonary Abdominal Other findings: Chipped front tooth Anesthesia Plan Any family history or previous problems with anesthesia ASA 4 general (Pulmonary pre op evaluation hard copy of chart (hx of lung transplant)) The patient is not a current smoker. Anesthetic plan and risks discussed with patient. ERAS Type General ERAS SCOTT Screening STOP-Bang Total Score: 4 Labs: No results found for: WBC, HGB, HCT, MCV, PLT No results found for: NA, K, CL, CO2, BUN, CREATININE, GLUCOSE, CALCIUM, PROT, BILIRUBINFL, ALKPHOS, AST, ALT, EGFR, GLOB Pain Score: 1 No echocardiogram results found for the past 14 days No results found for this or any previous visit. [facility] 11-06-2022 Note Comprehensive PreSur gical History and Physical Name: Rickie Ortiz : 1950 (Age-72 y.o.) Date of Service: Pt seen/examined on 11/06/2022 ASSESSMENT/PLAN: Patient is considered intermediate risk for this intermediate risk procedure/surgery () 1) Other intervertebral disc degeneration, lumbar region [M51.36] Deferred to surgeon Pt received pulm pre op eval, moderate risk, on paper chart Labs completed 10/27/22 Added TS, EKG 2) COPD s/p left single lung transplant, immunosuppressed follows with [facility], last OV 11/03/22 Does not wear O2 Pre op eval from pulm on paper chart Maintained on cellcept, prednisone, prograf and bactrim for life CXR from [facility] 11/03/22, results below Feels well and at baseline, denies shortness of breath Pt states he is on ASA 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 male who we are asked to see/evaluate for pre-operative evaluation prior to L2-S1 FUSION POSTERIOR (Back) [08609 CPT(R)] Chronic back for many years Progressively worsening Is under pain mgmt Pain is 6/10 today, low back, cont, aching to sore, worse with movement Denies numbness or tingling Is crawling at times Denies f/c, cp, sob, n/v/d No problems with anesthesia >4 mets Past Medical History: Past Medical History: No date: Arthritis No date: COPD (chronic obstructive pulmonary disease) (HCC) No date: Coronary artery disease No date: Hyperlipidemia No date: Hypertension No date: Squamous cell cancer of skin of left forearm Past Surgical History: Past Surgical History: 05/2014: BACK SURGERY Comment: lumbar 09/08/2016: CARDIAC CATHETERIZATION 02/2013: CATARACT EXTRACTION; Bilateral 04/09/2016: COLONOSCOPY 05/2020: LUNG TRANSPLANT; Left 11/28/2019: RT/LT HEART CATHETERS (HISTORICAL); Bilateral 10/2015: SHOULDER SURGERY; Left Comment: arthroscopy for RCR No date: SQUAMOUS CELL CARCINOMA EXCISION; Left Comment: forearm 07/13/2006: STENT INSERTION (HISTORICAL) Comment: heart Medications Prior to Admission: Prior to Admission medications Medication Sig Start Date End Date Taking? Authorizing Provider acetaminophen (Tylenol 8 Hour) 650 MG ER tablet Take 1,300 mg by mouth every 6 hours as needed. Historical Provider, aspirin 81 MG EC tablet Take 81 mg by mouth daily. Historical Provider, azithromycin (Zithromax) 250 MG tablet Take by mouth. 04/30/17 07/06/26 Historical Provider, calcium citrate 315 mg + D2 6.25 mcg tablet Take 1 tablet by mouth in the morning and 1 tablet in the evening. 04/18/21 Historical Provider, carvedilol (Coreg) 3.125 MG tablet Take 3.125 mg by mouth in the morning and 3.125 mg in the evening. 09/02/22 Historical Provider, cetirizine (ZyrTEC) 10 MG tablet Take 10 mg by mouth in the morning. 05/07/22 Historical Provider, Cholecalciferol (Vitamin D) 50 MCG (1999 UT) capsule Take by mouth. Historical Provider, fentaNYL (Duragesic) 12 MCG/HR apply ONE PATCH transdermally every 72 HOURS DIRECTED 06/05/22 Historical Provider, ferrous sulfate 325 (65 Fe) MG EC tablet Take 325 mg by mouth in the morning. 06/27/21 Historical Provider, fludrocortisone (Florinef) 0.1 MG tablet Take 0.1 mg by mouth in the morning. 06/05/21 Historical Provider, gabapentin (Neurontin) 300 MG capsule Take 300 mg by mouth 3 times daily. Historical Provider, HYDROcodone-acetaminophen (Loma Mar) 10-325 MG tablet Take 1 tablet by mouth in the morning and 1 tablet in the evening. 06/07/22 Historical Provider, HYDROmorphone (Dilaudid) 4 MG tablet Take 4 mg by mouth every 8 hours as needed. Historical Provider, magnesium oxide (Mag-Ox) Take 400 mg by mouth in the morning and 400 mg in the evening. 04/18/21 Historical Provider, Multiple Vitamins-Minerals (Therapeutic-M) tablet Take 1 tablet by mouth in the morning. 04/18/21 Historical Provider, mycophenolate (Cellcept) 500 MG tablet Take 1,000 mg by mouth in the morning and 1,000 mg in the evening. 05/07/22 Historical Provider, pantoprazole (ProtoNix) 40 MG EC tablet Take 40 mg by mouth in the morning. 05/07/22 Historical Provider, predniSONE (Deltasone) 5 MG tablet Take 5 mg by mouth in the morning. 07/07/22 Historical Provider, sulfamethoxazole-trimethoprim (Bactrim DS) 800-160 MG tablet Take 1 tablet by mouth three times a week. Historical Provider, tacrolimus (Prograf) 0.5 MG capsule Take one capsule in the morning for total of 1.5mg in am and 1mg in pm 07/07/22 Historical Provider, tamsulosin (Flomax) 0.4 MG 24 hr capsule TAKE TWO CAPSULES AT BEDTIME 06/25/22 Historic (more content not included)... [facility] 11-06-2022 Note Comprehensive PreSur gical History and Physical Name: Rickie Ortiz : 1950 (Age-72 y.o.) Date of Service: Pt seen/examined on 11/06/2022 ASSESSMENT/PLAN: Patient is considered intermediate risk for this intermediate risk procedure/surgery () 1) Other intervertebral disc degeneration, lumbar region [M51.36] Deferred to surgeon Pt received pulm pre op eval, moderate risk, on paper chart Labs completed 10/27/22 Added TS, EKG 2) COPD s/p left single lung transplant, immunosuppressed follows with [facility], last OV 11/03/22 Does not wear O2 Pre op eval from pulm on paper chart Maintained on cellcept, prednisone, prograf and bactrim for life CXR from [facility] 11/03/22, results below Feels well and at baseline, denies shortness of breath Pt states he is on ASA 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 male who we are asked to see/evaluate for pre-operative evaluation prior to L2-S1 FUSION POSTERIOR (Back) [94968 CPT(R)] Chronic back for many years Progressively worsening Is under pain mgmt Pain is 6/10 today, low back, cont, aching to sore, worse with movement Denies numbness or tingling Is crawling at times Denies f/c, cp, sob, n/v/d No problems with anesthesia >4 mets Past Medical History: Past Medical History: No date: Arthritis No date: COPD (chronic obstructive pulmonary disease) (HCC) No date: Coronary artery disease No date: Hyperlipidemia No date: Hypertension No date: Squamous cell cancer of skin of left forearm Past Surgical History: Past Surgical History: 05/2014: BACK SURGERY Comment: lumbar 09/08/2016: CARDIAC CATHETERIZATION 02/2013: CATARACT EXTRACTION; Bilateral 04/09/2016: COLONOSCOPY 05/2020: LUNG TRANSPLANT; Left 11/28/2019: RT/LT HEART CATHETERS (HISTORICAL); Bilateral 10/2015: SHOULDER SURGERY; Left Comment: arthroscopy for RCR No date: SQUAMOUS CELL CARCINOMA EXCISION; Left Comment: forearm 07/13/2006: STENT INSERTION (HISTORICAL) Comment: heart Medications Prior to Admission: Prior to Admission medications Medication Sig Start Date End Date Taking? Authorizing Provider acetaminophen (Tylenol 8 Hour) 650 MG ER tablet Take 1,300 mg by mouth every 6 hours as needed. Historical Provider, aspirin 81 MG EC tablet Take 81 mg by mouth daily. Historical Provider, azithromycin (Zithromax) 250 MG tablet Take by mouth. 04/30/17 07/06/26 Historical Provider, calcium citrate 315 mg + D2 6.25 mcg tablet Take 1 tablet by mouth in the morning and 1 tablet in the evening. 04/18/21 Historical Provider, carvedilol (Coreg) 3.125 MG tablet Take 3.125 mg by mouth in the morning and 3.125 mg in the evening. 09/02/22 Historical Provider, cetirizine (ZyrTEC) 10 MG tablet Take 10 mg by mouth in the morning. 05/07/22 Historical Provider, Cholecalciferol (Vitamin D) 50 MCG (1999 UT) capsule Take by mouth. Historical Provider, fentaNYL (Duragesic) 12 MCG/HR apply ONE PATCH transdermally every 72 HOURS DIRECTED 06/05/22 Historical Provider, ferrous sulfate 325 (65 Fe) MG EC tablet Take 325 mg by mouth in the morning. 06/27/21 Historical Provider, fludrocortisone (Florinef) 0.1 MG tablet Take 0.1 mg by mouth in the morning. 06/05/21 Historical Provider, gabapentin (Neurontin) 300 MG capsule Take 300 mg by mouth 3 times daily. Historical Provider, HYDROcodone-acetaminophen ([place] Mar) 10-325 MG tablet Take 1 tablet by mouth in the morning and 1 tablet in the evening. 06/07/22 Historical Provider, HYDROmorphone (Dilaudid) 4 MG tablet Take 4 mg by mouth every 8 hours as needed. Historical Provider, magnesium oxide (Mag-Ox) Take 400 mg by mouth in the morning and 400 mg in the evening. 04/18/21 Historical Provider, Multiple Vitamins-Minerals (Therapeutic-M) tablet Take 1 tablet by mouth in the morning. 04/18/21 Historical Provider, mycophenolate (Cellcept) 500 MG tablet Take 1,000 mg by mouth in the morning and 1,000 mg in the evening. 05/07/22 Historical Provider, pantoprazole (ProtoNix) 40 MG EC tablet Take 40 mg by mouth in the morning. 05/07/22 Historical Provider, predniSONE (Deltasone) 5 MG tablet Take 5 mg by mouth in the morning. 07/07/22 Historical Provider, sulfamethoxazole-trimethoprim (Bactrim DS) 800-160 MG tablet Take 1 tablet by mouth three times a week. Historical Provider, tacrolimus (Prograf) 0.5 MG capsule Take one capsule in the morning for total of 1.5mg in am and 1mg in pm 07/07/22 Historical Provider, tamsulosin (Flomax) 0.4 MG 24 hr capsule TAKE TWO CAPSULES AT BEDTIME 06/25/22 Historic (more content not included)... [facility] 11-03-2022 History of Present illness Narrative [facility] Post Lung Transplant Clinic Progress Note: Rickie Ortiz is a 72 y.o. male presents for post lung transplant follow up. 2.5 years post transplant Transplant Info: DOT: 05/31/2020 (Lung) Alloscreen: Lab Results Component Value Date ABSPC No DSA detected 07/07/2022 ABSPC No DSA detected 06/27/2021 ABSPC No DSA detected 11/26/2020 ABSPC No DSA detected 08/30/2020 ABSPC No DSA detected 06/18/2020 ABSPC DQ6/DQA1*01:03 04/25/2020 Return to Clinic: February Bonneau: Orders to Kar[facility] Lab Draw Frequency: Monthly Immunosuppressive Medications: Mycophenolate: 1000mg twice daily Prednisone: 5mg daily Tacrolimus: 1.5mg QAM and 1mg QPM; (goal: 4-6) Oxygen Requirements: Rickie is not on home oxygen he does not wear CPAP Today's Vital Signs: Vitals: 11/03/22 1443 BP: 126/73 Pulse: 83 Resp: 16 Temp: 98.5 degrees F (36.9 degrees C) TempSrc: Oral SpO2: 94% Weight: 109.8 kg (242 lb) Height: 1.727 m (5' 8 ) Wt Readings from Last 6 Encounters: 07/07/22 105.7 kg (233 lb) 07/07/22 103.8 kg (228 lb 13.4 oz) 03/24/22 103.8 kg (228 lb 12.8 oz) 01/17/22 99.8 kg (220 lb) 01/02/22 98.4 kg (217 lb) 09/26/21 102.7 kg (226 lb 8 oz) Patient Education Medication reconciliation completed and continued education regarding current medications provided to patient per Barbara Luque APRN. Emotional support and reflective listening ongoing. AVS and follow up schedule reviewed with Rickie. All questions answered per Rickie's satisfaction. Patient verbalized understanding and appreciation. Niurka Mcdaniels RN, BSN, RN, [facility] Lung Senior Analytic Consultant Images from the original note were not included. LUNG TRANSPLANT PROGRESS NOTE I had the pleasure of seeing Rickie Ortiz, for follow up at the [facility]. He is a 72 y.o. male who presents for follow-up after lung transplant Referring provider: Chandan Dee INTERVAL HISTORY Rickie Ortiz is well-known to our Lung Transplant service. Donnie notes he has a new PCP and doing well- planning to start statin for HLD. He is planning to have spinal fusion for continued back pain that limits his movement and therapy progress. Given letter today for neurosurgery team regarding pulmonary health for upcoming operative procedure in November 2022 at [facility]. Patient denies dizziness, headache, shortness of breath, increased cough, increased sputum production, nausea, vomiting, diarrhea, and weakness. Donnie asked about RSV vaccination, currently no update on when this will be recommended/available for immunosuppressed patients but will keep him informed. PLAN Reviewed drug levels 11/03/22 Drug Levels Lab Results Component Value Date TACROLIMUS 9.3 06/27/2021 TACROLIMUS 7.4 11/26/2020 TACROLIMUS 9.8 07/05/2020 Lab Results Component Value Date TACROTRGHMAN 6.1 10/27/2022 TACROTRGHMAN 5.8 09/15/2022 TACROTRGHMAN 3.5 08/18/2022 No results found for: SIROLIMUS No results found for: EVRLMSTRGH No results found for: EVERTRGHMANE No results found for: CYCLOSPORIN2 - Tacrolimus: Goal trough: 6-8 - Mycophenolate: 1000 mg BID - Steroids: prednisone 5mg per day - ADE prophylaxis: Azithromycin 250mg every MWF - Adjustments were not made to above IS regimen Pre-Operative Pulmonary Evaluation: From a pulmonary standpoint he is at no more than general population for surgical risk and lung function and he is optimized for OR from our team's standpoint. Please continue all immunosuppression medications in the perioperative period. For any questions regarding transplant immunosuppression medication regimen please reach out to lung transplant team at [phone]. I spent a total of 55+ minutes providing education and care, including medication, imaging and chart review. ASSESSMENT 1. S/p Lung Transplant, Encounter for Aftercare Lung Transplant 2. Immunosuppression 3. Encounter therapeutic Drug Monitoring, High Risk Medications 4. [place] Right Lung COPD 5. Residential Steroid Use 6. Osteoporosis 7. Obesity 8. Anxiety ROS & PHYSICAL EXAM ROS All other systems reviewed and are negative for pertinent findings except as mentioned in the HPI/Interval History. BP 126/73 (BP Location: Left arm, BP Position: Sitting) Pulse 83 Temp 98.5 F (36.9 C) (Oral) Resp 16 Ht 1.727 m (5' 8 ) Wt 109.8 kg (242 lb) SpO2 94% BMI 36.80 kg/m Smoking Status Former Body mass index is 36.8 kg/m . Wt Readings from Last 3 Encounters: 11/03/22 109.8 kg (242 lb) 07/07/22 105.7 kg (233 lb) 07/07/22 103.8 kg (228 lb 13.4 oz) GENERAL: No apparent distress. Obese, well-appearing male. HEENT: Pupils equal, round and reactive. Extraocular muscles intact. No scleral icterus. Oropharynx clear with moist mucus membranes. No erythema or exudate. NECK: Neck supple. No lymphadenopathy. No thyromegaly. No stridor. CARDIOVASCULAR: Regular rate and regular rhythm. No murmurs, rubs or gallops. Normal S1 and S2. No JVD. 2+ peripheral pulses throughout. PULMONARY: Clear to auscultation of right lung, diminished to left lung. No wheezing, rhonchi or rales. GASTROINTESTINAL: Soft, non-tender, non-distended. Bowel sounds present. MUSCULOSKELETAL: No cyanosis, clubbing. No joint effusions or erythema. SKIN: Warm and dry. No jaundice or rash. No edema. NEUROLOGIC: A&O x 3. Moves all extremities. Using cane for walking. PSYCHIATRIC: Affect normal. Mood normal. 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 Allograft function: stable today 11/03/22 Reference FEV1 = 2.34L (as of 07/22/21), 80% of baseline 1.87L Hypogammaglobulinemia Immunosuppression, therapeutic drug monitor ing, high risk meds PLAN: - Tacrolimus: Goal trough: 6-8 - Mycophenolate: 1000 mg BID - Steroids: prednisone 5mg per day - ADE prophylaxis: Azithromycin 250mg every MWF Respiratory 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) [place] right lung COPD Seasonal allergies (was on allergy shots prior to transplant) PLAN: - GoSpiro home spirometry- not being used/broken; Monthly in-lab spirometry - [facility] ID CMV: D-/R- EBV: D+/R+ Vaccinations - Influenza (HD): 01/30/22 - PCV13: 12/22/15 - PPSV23: 01/03/19 - Shingrix: 02/07/21, 04/17/21 - COVID-19: Primary Moderna Series, Bivalent 02/03/2022 - Evusheld 07/15/21 PLAN - Vaccines up to date Prophylaxis: - Bactrim 1 DS QMWF CV CAD HLD PLAN: - ASA - Planning to try resuming statin with PCP Renal CKD PLAN: - Monitor BUN/Cr GI/FEN GERD PLAN: - PPI Heme Anemia, Fe Deficiency PLAN: - Monitor CBC - FeSO4 supplementation Endocrine Osteoporosis Residential Steroid Use PLAN: - Ca / Vit D / Prolia (endo) Musculoskeletal / Skin Degenerative disc disease Lumbago- s/p RFA Obesity, Body mass index is 36.8 kg/m . PLAN: - Encourage diet and exercise - f/u with Dermatology for annual skin exam - Planning for lumbar fusion from L2-S1 at [facility] w/ neurosurgeon- Dr. 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 Lung, left pneumonectomy, explant: Lung with severe emphysema. 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 - Graft function - Reference FEV1 = 2.34L (as of 07/22/21) - Status - CMV: D-/R- - EBV: D+/R+ - Infection: - Donor cultures: E. Coli and Enteroccous, strep anginossus - Recipient cultures: negative - 05/31/20 BAL: E coli, E faecalis, S anginosus - Covid-19 diagnosis 12/10/21, s/p Lagevrio x 5 days - Transbronchial biopsies: - 07/03/20: A0BX - 09/04/20: A0B0 - 12/04/20: A1Bx - 03/05/21: A0Bx (5 fragments) - 07/02/21: A0B0 - Pre-transplant issues - GERD - Iron deficiency anemia - Hyperglycemia - Osteoporosis - Post-transplant issues - Small residual pneumothorax, resolved - LUIS ENRIQUE - Anxiety - Iron deficiency anemia - Hypogammaglobulinemia s/p IVIG 07/12/20, 01/24/21 - Actinic keratoses - Degenerative disc disease (lumbar spine) - Crossmatch Lab Results Component Value Date BCELLFLOWCRO Negative 05/30/2020 TCELLFLOWCRO Negative 05/30/2020 - Alloscreen Lab Results Component Value Date ABSPC No DSA detected 07/07/2022 ABSPC No DSA detected 06/27/2021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 FEV1/FVC-Pre 67 % 70 % 71 % 73 % FEV1/FVC % Ref 62 [id number] 1.32 L/sec 1.44 L/sec 1.66 L/sec 1.57 L/sec FEF 25-75% 1.02 % TLCPleth-Pre 7.86 Liters 7.81 Liters RVPleth-Pre 4.36 Liters 3.88 Liters DLCOunc-Pre 22.38 mL/mmHg/min 21.4 mL/mmHg/min DLCOunc-%Pred-Pre 90 % 87 % DLCOcor-%Pred-Pre 98 % 95 % More values are hidden. Newest values shown. Go to activity for more data. PULMONARY CXR 01/02/22 Clear, without mass, interstitial disease, or consolidation. 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 The transplant lung is clear apart from minimal subsegmental atelectasis at the base. [facility] [place] right lung is again noted to have severe centrilobular emphysema, which is diffuse, but worst in the upper lung. Mild diffuse right-sided bronchial wall thickening. No suspicious pulmonary nodule. No consolidation. No pleural fluid. No pneumothorax. Expiratory views demonstrate asymmetric air retention of the right lung, likely relating to obstruction from COPD. No evidence of air-trapping in the transplanted left lung.Tracheobronchial tree: Central airways are patent with postoperative changes on the left. No anastomotic narrowing. Venous Duplex - 06/13/20 Neg BLE Sleep Study 6MWT 06/28/21: 1490 feet (454 meters), lowest SpO2 96%, oxygen requirement: Room air 11/26/20: 1388 feet (437 Meters) lowest Sp02 96% Oxygen requirement: Room air 08/04/20: 984 feet (300 meters), lowest SpO2 98%, oxygen requirement: Room air CARDIOLOGY TTE - 06/27/21 - Normal left ventricular size and function. Ejection fraction 55-60%. - Normal diastolic function. - Mildly dilated right ventricle with low-normal function. - Mild biatrial enlargement. - Mild MR, mild NV. - RVSP estimated 33 mmHg. RHC/LHC - OSH R/LHC records (11/2019) GI GES - 03/28/20 Normal gastric emptying pH probe - Esophageal Manometry - Impression: Normal ambulatory esophageal pH study. Health Maintenance Bone Density - 04/2020 DUE 04/2022 Lumbar Spine (L1-L4): g/om2 (0.868) / T-soore (-3.1) / Z-score (- 2.6) Findings are suggestive of osteoporosis with a high fracture risk. Left Femur Total: g/cm2 (0.966) / T-score (-0.9) /Z-score (-0.2) Left Femoral Neck g/om2 (0.864) / T-soore (-1.6) / Z-score (-0.3) Right Femur Total:g/cm2 (1.012) / T-score (-0.6) / Z-score (0.1) Right Femoral Neck: g/cm2 (0.878) / T-score (- 1.5) /Z-score (-0.2) Colonoscopy - 2015 DUE 04/2021 DIAGNOSIS: SIGMOID COLON, POLYP @ 15 CM - POLYPOID COLONIC MUCOSAL FRAGMENT WITH LYMPHOID FOLLICLE FORMATION. PSA - 07/02/2021 1.02 SHAWNEE Palencia Division of Pulmonary, Critical Care & Sleep Medicine Department of Internal Medicine [facility]* Patient Instructions* SHAWNEE Palencia - 03/24/2022 1:00 PM EST You [facility] for a Post-transplant visit. Medication changes today We made no changes to your medications today. Other orders Vaccinations due Up to date Health Maintenance Screenings due Skin exam by a burr bench operator and Bone density scan Please call our office at [phone], if you have any questions or concerns [facility] Hospital Discharge instructions Patient Education 03/11/2022 13:46:23 Radiofrequency Lesioning, Care After Radiofrequency Lesioning, Care After This sheet gives you information about how to care for yourself after your procedure. Your health care provider may also give you more specific instructions. If you have problems or questions, contact your health care provider. What can I expect after the procedure? After the procedure, it is common to have: Slight pain in the area where the procedure was done. Temporary numbness. Follow these instructions at home: Medicines Take [id number] and prescription medicines only as told by your health care provider. Do not drive for 24 hours if you were given a sedative during your procedure. Do not drive or use heavy machinery while taking prescription pain medicine. Insertion site care Remove the bandage (dressing) after 24 hours or as directed by your health care provider. Check your needle insertion site every day for signs of infection. Watch for: ?Redness, swelling, or pain. ?Fluid or blood. ?Warmth. ?Pus or a bad smell. Managing pain If directed, put ice on the painful area. ?Put ice in a plastic bag. ?Place a towel between your skin and the bag. ?Leave the ice on for 20 minutes, 2 3 times a day. General instructions Return to your normal activities as told by your health care provider. Ask your health care provider what activities are safe for you. Pay close attention to how you feel after the procedure. If you start to have pain, write down whenit hurts and how it feels. This will help you and your health care provider know if you need an additional treatment. Keep all follow-up visits as told by your health care provider. This is important. Contact a health care provider if you have: Pain that does not get better. Redness, warmth, swelling, or pain at the needle insertion site. Fluid, blood, or pus coming from the needle insertion site. A fever. Get help right away if you develop: Sudden, severe pain. Numbness or tingling near the insertion site and those symptoms do not go away. Summary After the procedure, it is common to have slight pain and temporary numbness in the area where the procedure was done. Do not drive for 24 hours if you were given a sedative during your procedure. Pay close attention to how you feel after the procedure. If you start to have pain, write down whenit hurts and how it feels. This will help you and your health care provider know if you need an additional treatment. Contact a health care provider if you have a fever or pain that does not get better, or if you notice redness, warmth, swelling, pain, fluid, blood, or pus at the insertion site. Get help right away if you develop sudden, severe pain, or numbness or tingling near the insertion site. This information is not intended to replace advice given to you by your health care provider. Make sure you discuss any questions you have with your health care provider. Document Released: 12/25/2011 Document Revised: 01/13/2019 Document Reviewed: 01/13/2019 [employer] Patient Education 2020 [employer]. 03/11/2022 13:46:05 Moderate Conscious Sedation, Adult, Care After Moderate Conscious Sedation, Adult, Care After These instructions provide you with information about caring for yourself after your procedure. Your health care provider may also give you more specific instructions. Your treatment has been plannedaccording to current medical practices, but problems sometimes occur. Call your health care provider if you have any problems or questions after your procedure. What can I expect after the procedure? After your procedure, it is common: To feel sleepy for several hours. To feel clumsy and have poor balance for several hours. To have poor judgment for several hours. To vomit if you eat too soon. Follow these instructions at home: For at least 24 hours after the procedure: Do not: ?Participate in activities where you could fall or become injured. ?Drive. ?Use heavy machinery. ?Drink alcohol. ?Take sleeping pills or medicines that cause drowsiness. ?Make important decisions or sign legal documents. ?Take care of children on your own. Rest. Eating and drinking Follow the diet recommended by your health care provider. If you vomit: ?Drink water, juice, or soup when you can drink without vomiting. ?Make sure you have little or no nausea before eating solid foods. General instructions Have a responsible adult stay with you until you are awake and alert. Take upxz-xbn-lcsdybz and prescription medicines only as told by your health care provider. If you smoke, do not smoke without supervision. Keep all follow-up visits as told by your health care provider. This is important. Contact a health care provider if: You keep feeling nauseous or you keep vomiting. You feel light-headed. You develop a rash. You have a fever. Get help right away if: You have trouble breathing. This information is not intended to replace advice given to you by your health care provider. Make sure you discuss any questions you have with your health care provider. Document Released: 02/15/2014 Document Revised: 04/09/2018 Document Reviewed: 08/16/2016 [employer] Patient Education 2020 [employer]. 03/11/2022 13:40:26 Macie preprocedure instructions [facility] Pre-Procedure Instructions and Important Information Dr. Quijano As a patient, it is important for you to understand and follow all instructions listed below beforeyou come for you procedure appointment. If there is anything listed below that you are not sure of,or do not understand, please ask or call us at the [facility] at [phone] before your procedure appointment. 1.Approval to stop your prescribed blood thinner will be obtained from your primary care doctor or award clerk. Once approval has been obtained, you will need to stop all blood thinners as instructed, before your procedure date. Depending on the blood thinner you are taking, you will be told exactly how many days before you will need to discontinue taking the medication. a.For Warfarin (Coumadin), the physician will give you an order to have a blood test to check your Protime/INR the day before the procedure. 2.Stop all aspirin and aspirin products for a full seven (7) days before your procedure. 3.Stop all non-steroidal anti-inflammatory (NSAIDS) medication for a full five (5) days before yourprocedure. b.NSAIDS: Ibuprofen (Motrin, Advil), Naproxen (Aleve, Naprosyn), Meloxicam (Mobic), Diclofenac (Voltaren), Indomethacin (Indocin), Relafen, or other medications as instructed. 4.Stop all over the counter cold, sinus, flu, or headache medications for a full five (5) days before the procedure. These medications can contain aspirin or NSAIDS. 5.Stop all natural, herbal or vitamin supplements (Vit. E, Fish Oil, etc.) for a full ten (10) daysbefore the procedure. 6.Do not EAT or DRINK anything eight (8) hours before your procedure. Please understand, there are no exceptions to the above medication instructions. Failure to follow will result in your procedure being cancelled Please call with any changes in your medical condition/history before your procedure appointment, this includes the following: a.Any type of surgery, other injections given by another physician b.Recent infections, such as: Colds, flu, sinus infection, urinary tract infection, pneumonia, or any skin wound or infection of any kind. c.Change in medications. If you have any of the listed changes in your medical history, OR if you have failed to follow the above instructions for medication, your procedure will need to be cancelled and rescheduled for another date. The above instructions are FOR YOUR SAFETY. Failure to follow the above instructions and, or failure to inform your physician of any health issues may result in serious complications that include, but are not limited to, bleeding, serious infection, paralysis, or . 03/11/2022 13:40:26 PM Discharge Instructions (08/10/2020) ([place]) [facility] Discharge Instructions POST PROCEDURE INSTRUCTIONS __x___There are no general limitations to your activities. You may experience some weakness for thenext 3-4 hours, in which case you should limit your activity until strength and sensation returns. x Your pain may increase for the next 24-48 hours, until the injection begins to relieve your pain. x Rest at home today. x Do not drive any vehicle, operate any heavy machinery or use any sharp objects for the remainder of the day. x Be cautious of stairways, since your coordination may be impaired and do not drink alcoholic beverages or make major decisions for 24 hours. x May resume driving a car in ____6___ hours if no sedation, and 24 hours with sedation. x Resume regular activity. x Resume your regular diet. x Progress diet slowly, starting with water. If no difficulty with swallowing, progress to clear liquids (tea, broth, malik yancy) and then on to solids. x Resume aspirin products/blood thinners in 24 hours. Start Lovenox injections or other blood thinners in 24 hours after procedure. x Keep bandaid dry and remove in 24 hours. MEDICATIONS: BEFORE PROCEDURE x Physician s Pre-procedure Instruction Sheet given to patient. x Stop Coumadin/Pradaxa/Eliquis/Xarelto for 5 days before procedure - date . Have ProTime drawn on (Try to have drawn at [facility] to speed results to us). x Stop blood thinners Plavix, Pletal for 10 days before procedure date . x Stop Aspirin, Persantine, Aggrenox for 7 days before procedure date . x Stop Lovenox 24 hours before your appointment time. x Stop anti-inflammatory medications (Aleve, Advil, Mobic, Naprosyn, etc.) for 5 days before procedure. x Stop ALL Supplements and Vitamins for 10 days before your procedure. x Take blood pressure medications the day of your procedure. x Do not eat ____6 hours before procedure. x Do not drink ____2____ hours before procedure. x May have clear liquids (water, plain tea/coffee, clear soda) up to 2 hours before procedure. x Bring someone to drive you home. [facility] 11-01-2022 Evaluation + Plan noteExtracted from: Title:Specialty Office Visit Note Author:ELISABETH QUIJANO MD Date:03/11/22 1. Osteoarthritis of facet j oint of lumbar spine Ordered: acetaminophen-hydrocodone, Dose = 1 tab(s), Oral, q12h, PRN for pain, X 30 day(s), # 60 tab(s), 0 Refill(s), Pharmacy: [facility], Lumbar radiculopathy Osteoarthritis of facet joint of lumbar spine, 170.2, cm, 03/11/22 12:06:00 EDT, Height, 103.8 PM Return to Office Orders: HYDROmorphone, Dose : 4 mg = 1 tab(s), Oral, q8h, PRN as needed for pain, # 90 tab(s), 0 Refill(s), Pharmacy: [facility], Lumbar radiculopathy, 170.2, cm, 03/11/22 12:06:00 EDT, Height, 103.8, kg, 03/11/22 12:06:00 EDT, Dosing Weight Sodium Chloride 0.9% intravenous solution 1,000 mL, Start: 03/11/22 12:32:00 EDT, 12 hour(s), Stop date 03/12/22 0:31:00 EDT, Rate: 20 mL/hr, 03/11/22 12:32:00 EDT IV Catheter Insertion/Care NPO for Procedure Sign Consent Vital Signs PLAN: 1. Continue home activity and exercise as usual. 2. Continue home pain medications as mentioned above. 3. For those who are smoking smoking cessation is needed. 4. I have reviewed the [place] Automated Rx Reporting System (OARRS) report for this patient for refill pattern and other prescriber involvement as part of the appropriate surveillance for the provision of acute and chronic controlled medications. The report was requested and reviewed on the date of this entry, and was considered in the prescribing process. 5. I have reviewed and agree with any documentation taken by the ancillary staff. 6. I will see the patient in 6 weeks for post RFA evaluation Future Appointments Appointment Date:04/22/2022 01:30:00 PM Scheduled Provider:ELISABETH QUIJANO MD Location:PM Office Appointment Type:PM OV Future Scheduled Tests Radiology* XR Hip Minimum 2 Views Left 08/15/21 * XR Hip Minimum 2 Views Right 08/15/21 * XR Spine Lumbar AP/LAT 06/05/21 [facility] 11-01-2022 Summary of episode note Discharge Instructions Thank you for allowing [facility] to assist you with your healthcare needs. The following is importantdischarge information regarding your hospital visit. Your Care Team GUERRERO BATEMAN MD Your Diagnosis Osteoarthritis of facet joint of lumbar spine Lumbar radiculopathy Medications Please ask your primary doctor or pharmacist before taking any other medication not listed, including over the counter drugs, herbal medications, vitamins and or supplements as they may interact withyour home medications. What How Much When Why Instructions Last Dose New acetaminophen-hydrocodone ([place] 325-10 mg oral tablet) 1 tab(s) by mouth Every 12 hours as needed for for pain Lumbar radiculopathy Osteoarthritis of facet joint of lumbar spine Duration: 30 Days Pickup at [facility] Unchanged albuterol (albuterol 2.5 mg/ 3 mL (0.083%) inhalation solution) 3 Milliliter by inhalation Once a day (in the morning) Unchanged aspirin (aspirin 81 mg oral tablet, chewable) 1 tab(s) by mouth Every day Unchanged azelastine nasal (azelastine 137 mcg/ inh (0.1%) nasal spray) in the nose Two (2) times a day Unchanged azithromycin (azithromycin 250 mg oral tablet) by mouth i tab mon thu Unchanged calcium citrate (calcium (as calcium citrate) 250 mg oral tablet) by mouth Two (2) times a day Unchanged cetirizine (cetirizine 1 mg/ mL oral liquid) 10 Milliliter by mouth Once a day as needed for as needed for allergy symptoms Unchanged ferrous sulfate Unknown Strength (NEEDS CLARIFIED) by mouth Unchanged fludrocortisone (fludrocortisone 0.1 mg oral tablet) 1 tab(s) by mouth Every day Unchanged gabapentin (gabapentin 100 mg oral capsule) 2 cap by mouth Three (3) times a day Lumbar canal stenosis Lumbar radiculopathy Duration: 30 Days fill date 07-10-21 Unchanged HYDROmorphone (HYDROmorphone 4 mg oral tablet) 1 tab(s) by mouth Every 8 hours as needed for as needed for pain Lumbar radiculopathy Duration: 30 Days Pickup at [facility] Unchanged magnesium gluconate (Mag-G 500 mg oral tablet) 1 tab(s) by mouth Two (2) times a day Unchanged mycophenolate mofetil (mycophenolate mofetil 500 mg oral tablet) 2 tab(s) by mouth Two (2) times a day Unchanged pantoprazole (pantoprazole 40 mg oral enteric coated tablet) 1 tab(s) by mouth Two (2) times daily before meals Unchanged predniSONE (predniSONE 10 mg oral tablet) 5 Milligram by mouth Once a day Unchanged sulfamethoxazole-trimethoprim See instructions Oral Unchanged tacrolimus (tacrolimus 0.5 mg oral capsule) 1 cap by mouth Every 12 hours Unchanged tamsulosin (tamsulosin 0.4 mg oral capsule) by mouth Once a day Unchanged tiZANidine (tiZANidine 4 mg oral capsule) 1 cap by mouth Daily at bedtime Duration: 30 Days Pharmacy Information [facility]: [address], [place] [id number] [phone] Please take this list to your next doctor s visit. Bring all medications you take, including over the counter medications, herbals and other supplements with you to your doctor s visit. Patients and families are reminded to discard old lists and to update any records with all medication providers or retail pharmacies. Education Materials Radiofrequency Lesioning, Care After This sheet gives you information about how to care for yourself after your procedure. Your health care provider may also give you more specific instructions. If you have problems or questions, contact your health care provider. What can I expect after the procedure? After the procedure, it is common to have: Slight pain in the area where the procedure was done. Temporary numbness. Follow these instructions at home: Medicines Take qqhi-nds-hafctxg and prescription medicines only as told by your health care provider. Do not drive for 24 hours if you were given a sedative during your procedure. Do not drive or use heavy machinery while taking prescription pain medicine. Insertion site care Remove the bandage (dressing) after 24 hours or as directed by your health care provider. Check your needle insertion site every day for signs of infection. Watch for: ? Redness, swelling, or pain. ? Fluid or blood. ? Warmth. ? Pus or a bad smell. Managing pain If directed, put ice on the painful area. ? Put ice in a plastic bag. ? Place a towel between your skin and the bag. ? Leave the ice on for 20 minutes, 2 3 times a day. General instructions Return to your normal activities as told by your health care provider. Ask your health care provider what activities are safe for you. Pay close attention to how you feel after the procedure. If you start to have pain, write down whenit hurts and how it feels. This will help you and your health care provider know if you need an additional treatment. Keep all follow-up visits as told by your health care provider. This is important. Contact a health care provider if you have: Pain that does not get better. Redness, warmth, swelling, or pain at the needle insertion site. Fluid, blood, or pus coming from the needle insertion site. A fever. Get help right away if you develop: Sudden, severe pain. Numbness or tingling near the insertion site and those symptoms do not go away. Summary After the procedure, it is common to have slight pain and temporary numbness in the area where the procedure was done. Do not drive for 24 hours if you were given a sedative during your procedure. Pay close attention to how you feel after the procedure. If you start to have pain, write down whenit hurts and how it feels. This will help you and your health care provider know if you need an additional treatment. Contact a health care provider if you have a fever or pain that does not get better, or if you notice redness, warmth, swelling, pain, fluid, blood, or pus at the insertion site. Get help right away if you develop sudden, severe pain, or numbness or tingling near the insertion site. This information is not intended to replace advice given to you by your health care provider. Make sure you discuss any questions you have with your health care provider. Document Released: 12/25/2011 Document Revised: 01/13/2019 Document Reviewed: 01/13/2019 [employer]ös[employer] miniDaT Patient Education 2020 [employer]. Moderate Conscious Sedation, Adult, Care After These instructions provide you with information about caring for yourself after your procedure. Your health care provider may also give you more specific instructions. Your treatment has been plannedaccording to current medical practices, but problems sometimes occur. Call your health care provider if you have any problems or questions after your procedure. What can I expect after the procedure? After your procedure, it is common: To feel sleepy for several hours. To feel clumsy and have poor balance for several hours. To have poor judgment for several hours. To vomit if you eat too soon. Follow these instructions at home: For at least 24 hours after the procedure: Do not: ? Participate in activities where you could fall or become injured. ? Drive. ? Use heavy machinery. ? Drink alcohol. ? Take sleeping pills or medicines that cause drowsiness. ? Make important decisions or sign legal documents. ? Take care of children on your own. Rest. Eating and drinking Follow the diet recommended by your health care provider. If you vomit: ? Drink water, juice, or soup when you can drink without vomiting. ? Make sure you have little or no nausea before eating solid foods. General instructions Have a responsible adult stay with you until you are awake and alert. Take krob-bne-vntvmjg and prescription medicines only as told by your health care provider. If you smoke, do not smoke without supervision. Keep all follow-up visits as told by your health care provider. This is important. Contact a health care provider if: You keep feeling nauseous or you keep vomiting. You feel light-headed. You develop a rash. You have a fever. Get help right away if: You have trouble breathing. This information is not intended to replace advice given to you by your health care provider. Make sure you discuss any questions you have with your health care provider. Document Released: 02/15/2014 Document Revised: 04/09/2018 Document Reviewed: 08/16/2016 [employer]ös[employer] miniDaT Patient Education [address] [facility] Pre-Procedure Instructions and Important Information Dr. Quijano As a patient, it is important for you to understand and follow all instructions listed below beforeyou come for you procedure appointment. If there is anything listed below that you are not sure of,or do not understand, please ask or call us at the [facility] at [phone] before your procedure appointment. 1. Approval to stop your prescribed blood thinner will be obtained from your primary care doctor or award clerk. Once approval has been obtained, you will need to stop all blood thinners as instructed,before your procedure date. Depending on the blood thinner you are taking, you will be told exactlyhow many days before you will need to discontinue taking the medication. a. For Warfarin (Coumadin), the physician will give you an order to have a blood test to check your Protime/INR the day before the procedure. 2. Stop all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 79 % 76 %85 % 78 % FEV1 % Pred % Ref 61 FEV1/FVC-Pre 33 % 28 % 29 % 78 % 74 % 71 % 68 % 72 % 70 % 69 % 70 % 71 % 62 % 66 % 67 % 67 % 70 % 71 % 73 % FEV1/FVC % Ref 62 [id number] 0.19 L/sec 0.21 L/sec 0.18 L/sec 1.87 L/sec 1.54 L/sec 1.31 L/sec 1.16 L/sec 1.49 L/sec 1.37 L/sec 1.33 L/sec 1.3 L/sec 1.58 L/sec 0.94 L/sec 1.35 L/sec 1.27 L/sec 1.32 L/sec 1.44 L/sec 1.66 L/sec 1.57 L/sec FEF 25-75% 1.02 % TLCPleth-Pre 8.45 Liters 8.79 Liters 8.57 Liters 7.34 Liters 7.58 Liters 7.86 Liters 7.81 Liters RVPleth-Pre 6.32 Liters 5.53 Liters 5.96 Liters 4.19 Liters 4.23 Liters 4.36 Liters 3.88 Liters DLCOunc-Pre 13.97 mL/mmHg/min 16.03 mL/mmHg/min 15.14 mL/mmHg/min 17.01 mL/mmHg/min 18.62 mL/mmHg/min 22.38 mL/mmHg/min 21.4 mL/mmHg/min DLCOunc-%Pred-Pre 56 % 70 % 66 % 75 % 75 % 90 % 87 % DLCOcor-%Pred-Pre 57 % 69 % 88 % 81 % 98 % 95 % Some values recorded on this date have been omitted. PULMONARY CXR 01/02/22 Clear, without mass, interstitial disease, or consolidation. 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 The transplant lung is clear apart from minimal subsegmental atelectasis at the base. [facility] [place] right lung is again noted to have severe centrilobular emphysema, which is diffuse, but worst in the upper lung. Mild diffuse right-sided bronchial wall thickening. No suspicious pulmonary nodule. No consolidation. No pleural fluid. No pneumothorax. Expiratory views demonstrate asymmetric air retention of the right lung, likely relating to obstruction from COPD. No evidence of air-trapping in the transplanted left lung.Tracheobronchial tree: Central airways are patent with postoperative changes on the left. No anastomotic narrowing. Venous Duplex - 06/13/20 Neg BLE Sleep Study 6MWT 06/28/21: 1490 feet (454 meters), lowest SpO2 96%, oxygen requirement: Room air 11/26/20: 1388 feet (437 Meters) lowest Sp02 96% Oxygen requirement: Room air 08/04/20: 984 feet (300 meters), lowest SpO2 98%, oxygen requirement: Room air CARDIOLOGY TTE - 06/27/21 - Normal left ventricular size and function. Ejection fraction 55-60%. - Normal diastolic function. - Mildly dilated right ventricle with low-normal function. - Mild biatrial enlargement. - Mild MR, mild NV. - RVSP estimated 33 mmHg. RHC/LHC - OSH R/LHC records (11/2019) GI GES - 03/28/20 Normal gastric emptying pH probe - Esophageal Manometry - Impression: Normal ambulatory esophageal pH study. Health Maintenance Bone Density - 04/2020 Lumbar Spine (L1-L4): g/om2 (0.868) / T-soore (-3.1) / Z- score (-2.6) Findings are suggestive of osteoporosis with a high fracture risk. Left Femur Total: g/cm2 (0.966) / T-score (-0.9) / Z-score (-0.2) Left Femoral Neck g/om2 (0.864) / T-soore (-1.6) / Z-score (-0.3) Right Femur Total: g/cm2 (1.012) / T-score (-0.6) / Z-score (0.1) Right Femoral Neck: g/cm2 (0.878) / T-score (-1.5) / Z-score (-0.2) Colonoscopy - 2016 DIAGNOSIS: SIGMOID COLON, POLYP @ 15 CM - POLYPOID COLONIC MUCOSAL FRAGMENT WITH LYMPHOID FOLLICLE FORMATION. PSA - 10/26/19 0.96 SHAWNEE Figueroa Division of Pulmonary, Critical Care & Sleep Medicine Department of Internal Medicine [facility] * Niurka Mcdaniels RN - 01/02/2022 4:00 PM EDT [facility] Transplant [facility] Progress Note: Rickie Ortiz is a 71 y.o. male presents with the following: Post Transplant Follow Up Recent COVID exposure early December Transplant Info: DOT: 05/31/2020 (Lung) Alloscreen: Lab Results Component Value Date ABSPC No DSA detected 06/27/2021 ABSPC No DSA detected 11/26/2020 ABSPC No DSA detected 08/30/2020 ABSPC No DSA detected 06/18/2020 ABSPC DQ6/DQA1*01:03 04/25/2020 ABSPC DQ6/DQA1*01:03 03/06/2020 Immunosuppressive Medications: Mycophenolate: 1000mg twice daily Prednisone: 5mg daily Tacrolimus: 2.5mg twice daily; (goal: 6-8) Lab Results Component Value Date TACROLIMUS 9.3 06/27/2021 TACROLIMUS 7.4 11/26/2020 TACROLIMUS 9.8 07/05/2020 Review of Systems: Vitals: 01/02/22 1448 BP: 118/67 Pulse: 80 Resp: 18 Temp: 97.4 degrees F (36.3 degrees C) TempSrc: Oral SpO2: 94% Weight: 98.4 kg (217 lb) Height: 1.715 m (5' 7.5 ) Wt Readings from Last 6 Encounters: 01/02/22 98.4 kg (217 lb) 09/26/21 102.7 kg (226 lb 8 oz) 07/15/21 102.5 kg (226 lb) 06/27/21 99.8 kg (220 lb) 06/27/21 99.3 kg (219 lb) 04/11/21 99.5 kg (219 lb 4.8 oz) Plan: Monthly Pérez: Karla Lab Draw Frequency: Monthly Medication reconciliation completed and continued education regarding current medications provided to patient. Emotional support and reflective listening ongoing. AVS and follow up schedule reviewed with Rickie. All questions answered per Rickie's satisfaction. Patient verbalized understanding and appreciation. Niurka Mcdaniels RN, BSN, RN, [facility] Lung Senior Analytic Consultant documented in this encounterSt. Rita's Hospital08-25-2022 Instructions* Patient Instructions* Barbara Luque, [employer] PELLETIZER-TELESALES PROFESSIONAL - 01/02/2022 4:00 PM EDT You were seen today in The [facility] for a Post-transplant visit. Medication changes today Decrease Tacrolimus to 2.5 mg in AM and 2 mg in PM Other orders Will send referral for spine surgeon Vaccinations due COVID-19 #5 Influenza- high dose when available Health Maintenance Screenings due None Please call our office at [phone], if you have any questions or concerns documented [facility] Discharge instructions Patient Education 10/22/2021 13:45:32 Macie preprocedure instructions [facility] Pre-Procedure Instructions and Important Information Dr. Quijano As a patient, it is important for you to understand and follow all instructions listed below beforeyou come for you procedure appointment. If there is anything listed below that you are not sure of,or do not understand, please ask or call us at the [facility] at [phone] before your procedure appointment. 1.Approval to stop your prescribed blood thinner will be obtained from your primary care doctor or award clerk. Once approval has been obtained, you will need to stop all blood thinners as instructed, before your procedure date. Depending on the blood thinner you are taking, you will be told exactly how many days before you will need to discontinue taking the medication. a.For Warfarin (Coumadin), the physician will give you an order to have a blood test to check your Protime/INR the day before the procedure. 2.Stop all aspirin and aspirin products for a full seven (7) days before your procedure. 3.Stop all non-steroidal anti-inflammatory (NSAIDS) medication for a full five (5) days before yourprocedure. b.NSAIDS: Ibuprofen (Motrin, Advil), Naproxen (Aleve, Naprosyn), Meloxicam (Mobic), Diclofenac (Voltaren), Indomethacin (Indocin), Relafen, or other medications as instructed. 4.Stop all over the counter cold, sinus, flu, or headache medications for a full five (5) days before the procedure. These medications can contain aspirin or NSAIDS. 5.Stop all natural, herbal or vitamin supplements (Vit. E, Fish Oil, etc.) for a full ten (10) daysbefore the procedure. 6.Do not EAT or DRINK anything eight (8) hours before your procedure. Please understand, there are no exceptions to the above medication instructions. Failure to follow will result in your procedure being cancelled Please call with any changes in your medical condition/history before your procedure appointment, this includes the following: a.Any type of surgery, other injections given by another physician b.Recent infections, such as: Colds, flu, sinus infection, urinary tract infection, pneumonia, or any skin wound or infection of any kind. c.Change in medications. If you have any of the listed changes in your medical history, OR if you have failed to follow the above instructions for medication, your procedure will need to be cancelled and rescheduled for another date. The above instructions are FOR YOUR SAFETY. Failure to follow the above instructions and, or failure to inform your physician of any health issues may result in serious complications that include, but are not limited to, bleeding, serious infection, paralysis, or . 10/22/2021 13:45:32 PM Discharge Instructions (08/10/2020) ([place]) [facility] Discharge Instructions POST PROCEDURE INSTRUCTIONS __x___There are no general limitations to your activities. You may experience some weakness for thenext 3-4 hours, in which case you should limit your activity until strength and sensation returns. x Your pain may increase for the next 24-48 hours, until the injection begins to relieve your pain. x Rest at home today. x Do not drive any vehicle, operate any heavy machinery or use any sharp objects for the remainder of the day. x Be cautious of stairways, since your coordination may be impaired and do not drink alcoholic beverages or make major decisions for 24 hours. x May resume driving a car in ____6___ hours if no sedation, and 24 hours with sedation. x Resume regular activity. x Resume your regular diet. x Progress diet slowly, starting with water. If no difficulty with swallowing, progress to clear liquids (tea, broth, malik yancy) and then on to solids. x Resume aspirin products/blood thinners in 24 hours. Start Lovenox injections or other blood thinners in 24 hours after procedure. x Keep bandaid dry and remove in 24 hours. MEDICATIONS: BEFORE PROCEDURE x Physician s Pre-procedure Instruction Sheet given to patient. x Stop Coumadin/Pradaxa/Eliquis/Xarelto for 5 days before procedure - date . Have ProTime drawn on (Try to have drawn at [facility] to speed results to us). x Stop blood thinners Plavix, Pletal for 10 days before procedure date . x Stop Aspirin, Persantine, Aggrenox for 7 days before procedure date . x Stop Lovenox 24 hours before your appointment time. x Stop anti-inflammatory medications (Aleve, Advil, Mobic, Naprosyn, etc.) for 5 days before procedure. x Stop ALL Supplements and Vitamins for 10 days before your procedure. x Take blood pressure medications the day of your procedure. x Do not eat ____6 hours before procedure. x Do not drink ____2____ hours before procedure. x May have clear liquids (water, plain tea/coffee, clear soda) up to 2 hours before procedure. x Bring someone to drive you home. [facility] 06-14-2022 Evaluation + Plan noteExtracted from: Title:Specialty Office Visit Note Author:ELISABETH QUIJANO MD Date:10/22/21 1. Lumbar canal stenosis Ordered: acetaminophen-hydrocodone, Dose = 1 tab(s), Oral, q6h, PRN for pain, X 30 day(s), # 120 tab(s), 0 Refill(s), Pharmacy: [facility], Lumbar canal stenosis Osteoarthritis of facet joint of lumbar spine, 170.2, cm, 10/22/21 13:18:00 EDT, Height, 102.4 2. Osteoarthritis of facet joint of lumbar spine Ordered: acetaminophen-hydrocodone, Dose = 1 tab(s), Oral, q6h, PRN for pain, X 30 day(s), # 120 tab(s), 0 Refill(s), Pharmacy: [facility], Lumbar canal stenosis Osteoarthritis of facet joint of lumbar spine, 170.2, cm, 10/22/21 13:18:00 EDT, Height, 102.4 PLAN: 1. Continue home activity and exercise as usual. We did discuss weight loss and working on a stationary bike rather than treadmill 2. Continue home pain medications as mentioned above. 3. For those who are smoking smoking cessation is needed. 4. I have reviewed the [place] Automated Rx Reporting System (OARRS) report for this patient for refill pattern and other prescriber involvement as part of the appropriate surveillance for the provision of acute and chronic controlled medications. The report was requested and reviewed on the date of this entry, and was considered in the prescribing process. 5. I have reviewed and agree with any documentation taken by the ancillary staff. 6. I will repeat another injection in 4 to 5 weeks to confirm then hopefully RFA to follow. Future Appointments Appointment Date:12/12/2021 12:15:00 PM Scheduled Provider: Location:[facility] [place] Appointment Type:PM [place] Facet Joint Lumbar/Sacral Bi Future Scheduled Tests Radiology* XR Hip Minimum 2 Views Left 08/15/21 * XR Hip Minimum 2 Views Right 08/15/21 * XR Spine Lumbar AP/LAT 06/05/21 * XR Spine Lumbar AP/LAT/FLEX/EXT 06/10/21 [facility] 05-19-2022 Instructions* Patient Instructions* Ed Ortega DO - 09/26/2021 1:40 PM EDT You were seen today in The [facility] for a Post-transplant visit. Medication changes today Stop Valtrex Other orders Vaccinations due None None Health Maintenance Screenings due Skin exam by a burr bench operator Please call our office at [phone], if you have any questions or concerns documented in this encounterSt. Rita[facility]05-19-2022 History of Present illness Narrative* Niurka Mcdaniels RN - 09/26/2021 1:00 PM EDT [facility] Progress Note: Rickie Ortiz is a 71 y.o. male presents with the following: Post Transplant Follow Up Complaints of PINZON Exercise limited due to back issues Transplant Info: DOT: 05/31/2020 (Lung) Alloscreen: Lab Results Component Value Date ABSPC No DSA detected 06/27/2021 ABSPC No DSA detected 11/26/2020 ABSPC No DSA detected 08/30/2020 ABSPC No DSA detected 06/18/2020 ABSPC DQ6/DQA1*01:03 04/25/2020 ABSPC DQ6/DQA1*01:03 03/06/2020 Immunosuppressive Medications: Mycophenolate: 1000mg twice daily Prednisone: 5mg daily Tacrolimus: 3mg QAM and 2.5mg QPM; (goal: 6-8) Lab Results Component Value Date TACROLIMUS 9.3 06/27/2021 TACROLIMUS 7.4 11/26/2020 TACROLIMUS 9.8 07/05/2020 Review of Systems: There were no vitals filed for this visit. Wt Readings from Last 6 Encounters: 07/15/21 102.5 kg (226 lb) 06/27/21 99.8 kg (220 lb) 06/27/21 99.3 kg (219 lb) 04/11/21 99.5 kg (219 lb 4.8 oz) 02/28/21 99.6 kg (219 lb 8 oz) 01/31/21 99.2 kg (218 lb 12.8 oz) Plan: Next APPT: December 2021 Lab Draw Frequency: Monthly Medication reconciliation completed and continued education regarding current medications provided to patient. Emotional support and reflective listening ongoing. AVS and follow up schedule reviewed with Rickei. All questions answered per Rickie's satisfaction. Patient verbalized understanding and appreciation. Niurka Mcdaniels RN, BSN, RN, [facility] Lung Senior Analytic Consultant * Ed Ortega, DO - 09/26/2021 1:00 PM EDT Images from the original note were not included. LUNG TRANSPLANT PROGRESS NOTE Referring provider: Chandan Ortiz is a 71 y.o. male s/p lung transplantation. 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) Allograft function: improving 09/26/21 - REFERENCE FEV1 = 2.34 L (as of 04/11/21) Hypogammaglobulinemia Immunosuppression, therapeutic drug monitoring, high risk meds PLAN: - Tacrolimus: Goal trough: 6-8 (age, renal dysfunction); Current dose = 3 mg in AM and 2.5 mg in evening; no change today - Mycophenolate: 1000 mg BID - Steroids: prednisone 5mg per day - ADE prophylaxis: azithromycin 250mg MWF Respiratory 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) [place] right lung COPD Seasonal allergies (was on allergy shots prior to transplant) PLAN: - GoSpiro home spirometry- not being used/broken; Monthly in-lab spirometry - on zyrtec - TBBX 07/02/21 A0B0 ID CMV: D-/R- EBV: D+/R+ Vaccinations - Influenza: 02/04/21 - PCV13: 12/22/15 - PPSV23: 01/03/19 - COVID-19: 07/09/20, 08/06/20 (Moderna), 12/24/20, Dose #4 06/28/21, evusheld 07/15/21 PLAN Prophylaxis: - Bactrim 1 DS QMWF - Stop Valacyclovir CV CAD PLAN: - ASA - Statin to be managed by Harmonica Maker given h/o side effects when he was on this previously Renal CKD PLAN: - Monitor BUN/Cr GI/FEN GERD Obesity Body mass index is 34.95 kg/m . PLAN: - PPI Heme Anemia, Fe Deficiency PLAN: - Monitor CBC - FeSO4 supplementation Endocrine Osteoporosis Vitamin D PLAN: - Ca / Vit D / Reclast Musculoskeletal / Skin Degenerative disc disease PLAN: - f/u with Dermatology for annual skin exam - f/u with pain specialist Neuro/Psych Anxiety (chronic) PLAN: POST TRANSPLANT HISTORY - Left Single lung transplantation (05/31/20) for COPD (Jason) - Induction with Basiliximab on Day 0 and 4 - PGD @ T24: 0 (P/F - 114 with no infiltrates on CXR) - PGD @ T48: 0 (P/F - 118 with no infiltrates on CXR) - PGD @ [facility]: - Explant Pathology 05/31/20 A. Lung, left pneumonectomy, explant: Lung with severe emphysema. 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 - Graft function - Reference FEV1 = 2.34L (as of 07/22/21) - Status - CMV: D-/R- - EBV: D+/R+ - Infection: - Donor cultures: E. Coli and Enteroccous, strep anginossus - Recipient cultures: negative - 05/31/20 BAL: E coli, E faecalis, S anginosus - Transbronchial biopsies: - 07/03/20: A0BX - 09/04/20: A0B0 - 12/04/20: A1Bx - 03/05/21: A0Bx (5 fragments) - 07/02/21: A0B0 - Pre-transplant issues - GERD - Iron deficiency anemia - Hyperglycemia - Osteoporosis - Post-transplant issues - Small residual pneumothorax, resolved - LUIS ENRIQUE - Anxiety - Iron deficiency anemia - Hypogammaglobulinemia s/p IVIG 07/12/20, 01/24/21 - Actinic keratoses - Degenerative disc disease (lumbar spine) - Alloscreen Lab Results Component Value Date ABSPC No DSA detected 06/27/2021 ABSPC No DSA detected 11/26/2020 ABSPC No DSA detected 08/30/2020 ABSPC No DSA detected 06/18/2020 ABSPC DQ6/DQA1*01:03 04/25/2020 ABSPC DQ6/DQA1*01:03 03/06/2020 INTERVAL HISTORY Rickie Ortiz [facility] post-transplant follow- up of his LSLTx performed on 05/31/20 (CMV D-/R-). Donnie is doing very well. He states he doesn't have a cough or shortness of breath. He feels his back is limiting his activity and causing dyspnea. He is undergoing evaluation with local NSx, and is getting a second opnion at [facility] [place]. REVIEW OF SYSTEMS All other systems reviewed and are negative for pertinent findings except as mentioned in the HPI/Interval History. MEDICATIONS AND ALLERGIES Current Outpatient Medications Medication Sig Last Dose Start Date End Date Authorizing Provider acetaminophen 650 MG Tab CR 1,300 mg, Oral, EVERY 6 HOURS NEEDED Taking Historical Provider aspirin 81 MG Chew Tab chewable tablet 81 mg, Oral, DAILY Taking 07/19/20 Ed Ortega, azithromycin 250 MG tablet 250 mg, Oral, EVERY M, W & F Taking 04/19/21 04/18/25 Ed Ortega DO calcium citrate-vitamin D 315-250 MG-UNIT tablet 1 tablet, Oral, EVERY 12 HOURS Taking 04/18/21 Ed Ortega DO cholecalciferol 25 MCG (1000 UNIT) tablet 2,000 Units, Oral, DAILY Taking Historical Provider ferrous sulfate 325 (65 Fe) MG Tab DR tablet 325 mg, Oral, DAILY Taking 06/27/21 Rosaura Morales MD fludrocortisone 0.1 MG tablet 0.1 mg, Oral, DAILY Taking 08/26/21 Ed Ortega DO gabapentin 100 MG capsule 200 mg, Oral, 3 TIMES DAILY Taking Historical Provider guaiFENesin 600 MG Tab SR 12 HR tablet SR 600 mg, Oral, 2 TIMES DAILY NEEDED Taking 08/30/20 Dieter Ivey MD, PhD HYDROmorphone 4 MG tablet 4 mg, Oral, EVERY 8 HOURS NEEDED Taking Historical Provider magnesium oxide 400 (241.3 Mg) MG tablet 400 mg, Oral, 2 TIMES DAILY Taking 04/18/21 Ed Ortega DO multivitamin w/ minerals tablet 1 tablet, Oral, DAILY Taking 04/18/21 Ed Ortega DO mycophenolate mofetil (CELLCEPT) 500 MG tablet 1,000 mg, Oral, EVERY 12 HOURS Taking 06/27/21 Carol Renee MD pantoprazole [address] DR 40 mg, Oral, DAILY EVERY MORNING Taking 07/19/20 Ed Ortega DO predniSONE 5 MG tablet 5 mg, Oral, DAILY Taking 12/27/20 Ed Ortega DO sulfamethoxazole-trimethoprim 800-160 MG per tablet 1 tablet, Oral, THREE TIMES WEEKLY Taking 06/28/21 06/28/22 Carol Renee MD tacrolimus (generic) 0.5 MG capsule Take 3mg in the morning and 2.5mg in the evening with 1mg and 0.5mg capsules Taking 01/18/21 Ed Ortega DO tacrolimus (generic) 1 MG capsule Take 3mg in the morning and 2.5mg in the evening with 1mg and 0.5mg capsules Taking 01/18/21 Ed Ortega DO Tamsulosin HCl 0.4 MG capsule 0.8 mg, Oral, DAILY Taking 04/18/21 Ed Ortega DO cetirizine 10 MG tablet 10 mg, Oral, DAILY 09/26/21 Ed Ortega DO sodium polystyrene 15 GM/60ML Suspension oral suspension 30 g, Oral, ONCE 05/31/21 05/31/21 Carol Renee MD valACYclovir 500 MG tablet 500 mg, Oral, EVERY 12 HOURS 12/27/20 Ed Ortega DO Allergies: No Known Allergies PHYSICAL EXAM BP 155/80 (BP Location: Right arm, BP Position: Sitting) Pulse 87 Temp 98.2 F (36.8 C) (Oral) Resp 18 Ht 1.715 m (5' 7.5 ) Wt 102.7 kg (226 lb 8 oz) SpO2 95% BMI 34.95 kg/m Smoking Status Former Smoker Body mass index is 34.95 kg/m . Wt Readings from Last 3 Encounters: 09/26/21 102.7 kg (226 lb 8 oz) 07/15/21 102.5 kg (226 lb) 06/27/21 99.8 kg (220 lb) GENERAL: No apparent distress. HEENT: No scleral icterus. Moist mucus membranes. No erythema or exudate. NECK: Neck supple. No lymphadenopathy. No thyromegaly. No stridor. CARDIOVASCULAR: Regular rate and regular rhythm. No murmurs, rubs or gallops. Normal S1 and S2. PULMONARY: Clear to auscultation bilaterally. R lung severely diminished and L lung clear throughout. No wheezing, rhonchi or rales. GASTROINTESTINAL: Obese. Soft, non-tender, non-distended. Bowel sounds present. MUSCULOSKELETAL: No cyanosis, clubbing. No joint effusions or erythema. SKIN: Warm and dry. No jaundice or rash. No LE edema. Fragile skin to hands. NEUROLOGIC: A&O x 3. Moves all extremities. Gait normal. PSYCHIATRIC: Affect normal. Mood normal. DATA REVIEW CBC Lab Results Component Value Date WBC 7.6 09/09/2021 HGB 11.9 09/09/2021 HCT 38.0 09/09/2021 PLATELET 155 09/09/2021 MCV 106.2 (H) 06/27/2021 CMP Lab Results Component Value Date SODIUM 139 09/09/2021 POTASSIUM 4.5 09/09/2021 CHLORIDE 108 09/09/2021 CO2 25.0 09/09/2021 BUN 26 09/09/2021 CREATSERUM 1.46 09/09/2021 GLUCOSE 112 09/09/2021 Lab Results Component Value Date ALT 22 09/09/2021 AST 12 09/09/2021 GGT 19 09/09/2021 ALKPHOS 62 09/09/2021 BILITOTAL 0.30 09/09/2021 BILIDIRECT 0.07 09/09/2021 Lab Results Component Value Date CMVPCR negative 08/12/2021 Imaging/Radiological Studies I have personally reviewed and interpreted the radiographic data in [facility]. PFT Results Some values may be hidden. Unless noted otherwise, only the newest values recorded on each date aredisplayed. PFT Results 10/26/19 01/25/20 04/25/20 06/21/20 06/28/20 07/05/20 07/19/20 08/02/20 08/30/20 09/24/20 10/29/20 11/26/20 12/27/20 01/31/21 02/28/21 04/11/21 06/27/21 08/21/21 09/26/21 FVC-Pre 1.88 Liters 2.91 Liters 2.48 Liters 2.68 Liters 2.73 Liters 2.91 Liters 3.01 Liters 2.92 Liters 2.96 Liters 3.15 Liters 3.04 Liters 3.27 Liters 3.31 Liters 3.44 Liters 3.34 Liters 3.43 Liters3.14 Liters 3.39 Liters FVC 3.7 FVC-%Pred-Pre 47 % 73 % 62 % 67 % 68 % 73 % 75 % 74 % 75 % 80 % 77 % 83 % 84 % 87 % 84 % 87 % 79 % 86 % FEV1-Pre 0.61 Liters 0.81 Liters 0.72 Liters 2.09 Liters 2.03 Liters 2.06 Liters 2.06 Liters 2.11 Liters 2.08 Liters 2.16 Liters 2.11 Liters 2.31 Liters 2.04 Liters 2.27 Liters 2.23 Liters 2.29 Liters 2.19 Liters 2.41 Liters FEV1 Pre Liters 2.28 FEV1-%Pred-Pre 21 % 27 % 24 % 71 % 69 % 70 % 70 % 73 % 72 % 75 % 73 % 80 % 71 % 79 % 77 % 79 % 76 %85 % FEV1 % Pred % Ref 61 FEV1/FVC-Pre 33 % 28 % 29 % 78 % 74 % 71 % 68 % 72 % 70 % 69 % 70 % 71 % 62 % 66 % 67 % 67 % 70 % 71 % FEV1/FVC % Ref 62 [id number] 0.19 L/sec 0.21 L/sec 0.18 L/sec 1.87 L/sec 1.54 L/sec 1.31 L/sec 1.16 L/sec 1.49 L/sec 1.37 L/sec 1.33 L/sec 1.3 L/sec 1.58 L/sec 0.94 L/sec 1.35 L/sec 1.27 L/sec 1.32 L/sec 1.44 L/sec 1.66 L/sec FEF 25-75% 1.02 % TLCPleth-Pre 8.45 Liters 8.79 Liters 8.57 Liters 7.34 Liters 7.58 Liters 7.86 Liters 7.81 Liters RVPleth-Pre 6.32 Liters 5.53 Liters 5.96 Liters 4.19 Liters 4.23 Liters 4.36 Liters 3.88 Liters DLCOunc-Pre 13.97 mL/mmHg/min 16.03 mL/mmHg/min 15.14 mL/mmHg/min 17.01 mL/mmHg/min 18.62 mL/mmHg/min 22.38 mL/mmHg/min 21.4 mL/mmHg/min DLCOunc-%Pred-Pre 56 % 70 % 66 % 75 % 75 % 90 % 87 % DLCOcor-%Pred-Pre 57 % 69 % 88 % 81 % 98 % 95 % Some values recorded on this date have been omitted. PULMONARY CXR 09/26/21 Stable postsurgical changes related to left lung transplant. No acute abnormality. 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 The transplant lung is clear apart from minimal subsegmental atelectasis at the base. The [place] right lung is again noted to have severe centrilobular emphysema, which is diffuse, but worst in the upper lung. Mild diffuse right-sided bronchial wall thickening. No suspicious pulmonary nodule. No consolidation. No pleural fluid. No pneumothorax. Expiratory views demonstrate asymmetric air retention of the right lung, likely relating to obstruction from COPD. No evidence of air-trapping in the transplanted left lung.Tracheobronchial tree: Central airways are patent with postoperative changes on the left. No anastomotic narrowing. Venous Duplex - 06/13/20 Neg BLE Sleep Study 6MWT 06/28/21: 1490 feet (454 meters), lowest SpO2 96%, oxygen requirement: Room air 11/26/20: 1388 feet (437 Meters) lowest Sp02 96% Oxygen requirement: Room air 08/04/20: 984 feet (300 meters), lowest SpO2 98%, oxygen requirement: Room air CARDIOLOGY TTE - 06/27/21 - Normal left ventricular size and function. Ejection fraction 55-60%. - Normal diastolic function. - Mildly dilated right ventricle with low-normal function. - Mild biatrial enlargement. - Mild MR, mild NV. - RVSP estimated 33 mmHg. C/C - OSH R/LHC records (11/2019) GI GES - 03/28/20 Normal gastric emptying pH probe - Esophageal Manometry - Impression: Normal ambulatory esophageal pH study. Health Maintenance Bone Density - 04/2020 Lumbar Spine (L1-L4): g/om2 (0.868) / T-soore (-3.1) / Z- score (-2.6) Findings are suggestive of osteoporosis with a high fracture risk. Left Femur Total: g/cm2 (0.966) / T-score (-0.9) / Z-score (-0.2) Left Femoral Neck g/om2 (0.864) / T-soore (-1.6) / Z-score (-0.3) Right Femur Total: g/cm2 (1.012) / T-score (-0.6) / Z-score (0.1) Right Femoral Neck: g/cm2 (0.878) / T-score (-1.5) / Z-score (-0.2) Colonoscopy - 2016 DIAGNOSIS: SIGMOID COLON, POLYP @ 15 CM - POLYPOID COLONIC MUCOSAL FRAGMENT WITH LYMPHOID FOLLICLE FORMATION. PSA - 10/26/19 0.96 Ed Ortega DO Division of Pulmonary, Critical Care & Sleep Medicine Department of Internal Medicine [facility] Evaluation + Plan noteExtracted from: Title:Specialty Office Visit Note Author:ELISABETH QUIJANO MD Date:08/15/21 1. 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 Lumbar radiculopathy Ordered: gabapentin, Dose : 200 mg = 2 cap(s), Oral, TID, fill date 07-10-21, # 180 cap(s), 4 Refill(s), Pharmacy: [facility], Lumbar canal stenosis Lumbar radiculopathy, 172, cm, 08/15/21 10:14:00 EDT, Height, 103.3, kg, 08/15/21 10:14:00 EDT, Dosing... HYDROmorphone, Dose : 4 mg = 1 tab(s), Oral, q8h, PRN as needed for pain, # 90 tab(s), 0 Refill(s), Pharmacy: [facility], Lumbar radiculopathy, 172, cm, 08/15/21 10:14:00 EDT, Height, 103.3, kg, 08/15/21 10:14:00 EDT, Dosing Weight 3. Bilateral hip pains. PLAN: 1. Continue home activity and exercise as usual. 2. Continue home pain medications as mentioned above. 3. For those who are smoking smoking cessation is needed. 4. I have reviewed the [place] Automated Rx Reporting System (OARRS) report for this patient for refill pattern and other prescriber involvement as part of the appropriate surveillance for the provision of acute and chronic controlled medications. The report was requested and reviewed on the date of this entry, and was considered in the prescribing process. 5. I have reviewed and agree with any documentation taken by the ancillary staff. 6. I will see the patient in 6 weeks for bilateral L3-L4 and L5 facets diagnostic with the hope for an RFA. My reason for that is to give him longer relief than just 5 to 6 weeks with every epidural steroid injection Future Scheduled Tests Radiology* XR Hip Minimum 2 Views Left 08/15/21 * XR Hip Minimum 2 Views Right 08/15/21 * XR Spine Lumbar AP/LAT 06/05/21 * XR Spine Lumbar AP/LAT/FLEX/EXT 06/10/21 [facility] 04-07-2022 Evaluation + Plan note Future Scheduled Tests Radiology* XR Hip Minimum 2 Views Left 08/15/21 * XR Hip Minimum 2 Views Right 08/15/21 * XR Spine Lumbar AP/LAT 06/05/21 * XR Spine Lumbar AP/LAT/FLEX/EXT 06/10/21 [facility] 04-07-2022 Hospital Discharge instructions Patient Education 08/15/2021 10:37:05 [place] preprocedure instructions [facility] Pre-Procedure Instructions and Important Information Dr. Quijano As a patient, it is important for you to understand and follow all instructions listed below beforeyou come for you procedure appointment. If there is anything listed below that you are not sure of,or do not understand, please ask or call us at the [facility] at [phone] before your procedure appointment. 1.Approval to stop your prescribed blood thinner will be obtained from your primary care doctor or award clerk. Once approval has been obtained, you will need to stop all blood thinners as instructed, before your procedure date. Depending on the blood thinner you are taking, you will be told exactly how many days before you will need to discontinue taking the medication. a.For Warfarin (Coumadin), the physician will give you an order to have a blood test to check your Protime/INR the day before the procedure. 2.Stop all aspirin and aspirin products for a full seven (7) days before your procedure. 3.Stop all non-steroidal anti-inflammatory (NSAIDS) medication for a full five (5) days before yourprocedure. b.NSAIDS: Ibuprofen (Motrin, Advil), Naproxen (Aleve, Naprosyn), Meloxicam (Mobic), Diclofenac (Voltaren), Indomethacin (Indocin), Relafen, or other medications as instructed. 4.Stop all over the counter cold, sinus, flu, or headache medications for a full five (5) days before the procedure. These medications can contain aspirin or NSAIDS. 5.Stop all natural, herbal or vitamin supplements (Vit. E, Fish Oil, etc.) for a full ten (10) daysbefore the procedure. 6.Do not EAT or DRINK anything eight (8) hours before your procedure. Please understand, there are no exceptions to the above medication instructions. Failure to follow will result in your procedure being cancelled Please call with any changes in your medical condition/history before your procedure appointment, this includes the following: a.Any type of surgery, other injections given by another physician b.Recent infections, such as: Colds, flu, sinus infection, urinary tract infection, pneumonia, or any skin wound or infection of any kind. c.Change in medications. If you have any of the listed changes in your medical history, OR if you have failed to follow the above instructions for medication, your procedure will need to be cancelled and rescheduled for another date. The above instructions are FOR YOUR SAFETY. Failure to follow the above instructions and, or failure to inform your physician of any health issues may result in serious complications that include, but are not limited to, bleeding, serious infection, paralysis, or . 08/15/2021 10:37:04 PM Discharge Instructions (08/10/2020) ([place]) [facility] Discharge Instructions POST PROCEDURE INSTRUCTIONS __x___There are no general limitations to your activities. You may experience some weakness for thenext 3-4 hours, in which case you should limit your activity until strength and sensation returns. x Your pain may increase for the next 24-48 hours, until the injection begins to relieve your pain. x Rest at home today. x Do not drive any vehicle, operate any heavy machinery or use any sharp objects for the remainder of the day. x Be cautious of stairways, since your coordination may be impaired and do not drink alcoholic beverages or make major decisions for 24 hours. x May resume driving a car in ____6___ hours if no sedation, and 24 hours with sedation. x Resume regular activity. x Resume your regular diet. x Progress diet slowly, starting with water. If no difficulty with swallowing, progress to clear liquids (tea, broth, malik yancy) and then on to solids. x Resume aspirin products/blood thinners in 24 hours. Start Lovenox injections or other blood thinners in 24 hours after procedure. x Keep bandaid dry and remove in 24 hours. MEDICATIONS: BEFORE PROCEDURE x Physician s Pre-procedure Instruction Sheet given to patient. x Stop Coumadin/Pradaxa/Eliquis/Xarelto for 5 days before procedure - date . Have ProTime drawn on (Try to have drawn at [facility] to speed results to us). x Stop blood thinners Plavix, Pletal for 10 days before procedure date . x Stop Aspirin, Persantine, Aggrenox for 7 days before procedure date . x Stop Lovenox 24 hours before your appointment time. x Stop anti-inflammatory medications (Aleve, Advil, Mobic, Naprosyn, etc.) for 5 days before procedure. x Stop ALL Supplements and Vitamins for 10 days before your procedure. x Take blood pressure medications the day of your procedure. x Do not eat ____6 hours before procedure. x Do not drink ____2____ hours before procedure. x May have clear liquids (water, plain tea/coffee, clear soda) up to 2 hours before procedure. x Bring someone to drive you home. [facility] 02-15-2022 Hospital Discharge instructions Patient Education 06/25/2021 13:04:[address] [facility] Pre-Procedure Instructions and Important Information Dr. Quijano As a patient, it is important for you to understand and follow all instructions listed below beforeyou come for you procedure appointment. If there is anything listed below that you are not sure of,or do not understand, please ask or call us at the [facility] at [phone] before your procedure appointment. 1.Approval to stop your prescribed blood thinner will be obtained from your primary care doctor or award clerk. Once approval has been obtained, you will need to stop all blood thinners as instructed, before your procedure date. Depending on the blood thinner you are taking, you will be told exactly how many days before you will need to discontinue taking the medication. a.For Warfarin (Coumadin), the physician will give you an order to have a blood test to check your Protime/INR the day before the procedure. 2.Stop all aspirin and aspirin products for a full seven (7) days before your procedure. 3.Stop all non-steroidal anti-inflammatory (NSAIDS) medication for a full five (5) days before yourprocedure. b.NSAIDS: Ibuprofen (Motrin, Advil), Naproxen (Aleve, Naprosyn), Meloxicam (Mobic), Diclofenac (Voltaren), Indomethacin (Indocin), Relafen, or other medications as instructed. 4.Stop all over the counter cold, sinus, flu, or headache medications for a full five (5) days before the procedure. These medications can contain aspirin or NSAIDS. 5.Stop all natural, herbal or vitamin supplements (Vit. E, Fish Oil, etc.) for a full ten (10) daysbefore the procedure. 6.Do not EAT or DRINK anything eight (8) hours before your procedure. Please understand, there are no exceptions to the above medication instructions. Failure to follow will result in your procedure being cancelled Please call with any changes in your medical condition/history before your procedure appointment, this includes the following: a.Any type of surgery, other injections given by another physician b.Recent infections, such as: Colds, flu, sinus infection, urinary tract infection, pneumonia, or any skin wound or infection of any kind. c.Change in medications. If you have any of the listed changes in your medical history, OR if you have failed to follow the above instructions for medication, your procedure will need to be cancelled and rescheduled for another date. The above instructions are FOR YOUR SAFETY. Failure to follow the above instructions and, or failure to inform your physician of any health issues may result in serious complications that include, but are not limited to, bleeding, serious infection, paralysis, or . 06/25/2021 13:04:46 PM Discharge Instructions (08/10/2020) ([place]) [facility] Discharge Instructions POST PROCEDURE INSTRUCTIONS __x___There are no general limitations to your activities. You may experience some weakness for thenext 3-4 hours, in which case you should limit your activity until strength and sensation returns. x Your pain may increase for the next 24-48 hours, until the injection begins to relieve your pain. x Rest at home today. x Do not drive any vehicle, operate any heavy machinery or use any sharp objects for the remainder of the day. x Be cautious of stairways, since your coordination may be impaired and do not drink alcoholic beverages or make major decisions for 24 hours. x May resume driving a car in ____6___ hours if no sedation, and 24 hours with sedation. x Resume regular activity. x Resume your regular diet. x Progress diet slowly, starting with water. If no difficulty with swallowing, progress to clear liquids (tea, broth, malik yancy) and then on to solids. x Resume aspirin products/blood thinners in 24 hours. Start Lovenox injections or other blood thinners in 24 hours after procedure. x Keep bandaid dry and remove in 24 hours. MEDICATIONS: BEFORE PROCEDURE x Physician s Pre-procedure Instruction Sheet given to patient. x Stop Coumadin/Pradaxa/Eliquis/Xarelto for 5 days before procedure - date . Have ProTime drawn on (Try to have drawn at [facility] to speed results to us). x Stop blood thinners Plavix, Pletal for 10 days before procedure date . x Stop Aspirin, Persantine, Aggrenox for 7 days before procedure date . x Stop Lovenox 24 hours before your appointment time. x Stop anti-inflammatory medications (Aleve, Advil, Mobic, Naprosyn, etc.) for 5 days before procedure. x Stop ALL Supplements and Vitamins for 10 days before your procedure. x Take blood pressure medications the day of your procedure. x Do not eat ____6 hours before procedure. x Do not drink ____2____ hours before procedure. x May have clear liquids (water, plain tea/coffee, clear soda) up to 2 hours before procedure. x Bring someone to drive you home. [facility] 02-15-2022 Evaluation + Plan noteExtracted from: Title:Specialty Office Visit Note Author:ELISABETH QUIJANO MD Date:06/25/21 1. Lumbar disc herniation 2. Numbness of extremity 3. Left leg weakness PLAN: 1. Continue home activity and exercise as usual. 2. Continue home pain medications as mentioned above. 3. For those who are smoking smoking cessation is needed. 4. I have reviewed the [place] Automated Rx Reporting System (OARRS) report for this patient for refill pattern and other prescriber involvement as part of the appropriate surveillance for the provision of acute and chronic controlled medications. The report was requested and reviewed on the date of this entry, and was considered in the prescribing process. 5. I have reviewed and agree with any documentation taken by the ancillary staff. 6. I will see the patient in 6 to 8 weeks for repeating the same procedure unless he proceeds with back surgery Future Appointments Appointment Date:06/26/2021 02:15:00 PM Scheduled Provider:NALLELY DIAZ MD Location:[facility] Appointment Type:NS OV Future Scheduled Tests Radiology* XR Spine Lumbar AP/LAT 06/05/21 * XR Spine Lumbar AP/LAT/FLEX/EXT 06/10/21 [facility] 01-26-2022 Evaluation + Plan note Future Scheduled Tests Radiology* XR Spine Lumbar AP/LAT 06/05/21 * XR Spine Lumbar AP/LAT/FLEX/EXT 06/10/[facility] 01-06-[facility] Evaluation + Plan noteExtracted from: Title:Specialty Office Visit Note Author:ELISABETH QUIJANO MD Date:05/16/21 1. Lumbar canal stenosis 2. Lumbar radiculopathy Orders: PM Inj Spine L/S With Imaging [id number] PLAN: 1. Continue home activity and exercise as usual. 2. Continue home pain medications as mentioned above. 3. For those who are smoking smoking cessation is needed. 4. I have reviewed the [place] Automated Rx Reporting System (OARRS) report for this patient for refill pattern and other prescriber involvement as part of the appropriate surveillance for the provision of acute and chronic controlled medications. The report was requested and reviewed on the date of this entry, and was considered in the prescribing process. 5. I have reviewed and agree with any documentation taken by the ancillary staff. 6. I will repeat another injection in 4 to 6 weeks as indicated. Future Appointments Appointment Date:06/25/2021 12:30:00 PM Scheduled Provider: Location:Pain Management- [facility] Appointment Type:PM Inj Spine L/S With Imaging [facility] 01-06-2022 Hospital Discharge instructions Patient Education 05/16/2021 11:00:47 Macie preprocedure instructions [facility] Pre-Procedure Instructions and Important Information Dr. Quijano As a patient, it is important for you to understand and follow all instructions listed below beforeyou come for you procedure appointment. If there is anything listed below that you are not sure of,or do not understand, please ask or call us at the [facility] at [phone] before your procedure appointment. 1.Approval to stop your prescribed blood thinner will be obtained from your primary care doctor or award clerk. Once approval has been obtained, you will need to stop all blood thinners as instructed, before your procedure date. Depending on the blood thinner you are taking, you will be told exactly how many days before you will need to discontinue taking the medication. a.For Warfarin (Coumadin), the physician will give you an order to have a blood test to check your Protime/INR the day before the procedure. 2.Stop all aspirin and aspirin products for a full seven (7) days before your procedure. 3.Stop all non-steroidal anti-inflammatory (NSAIDS) medication for a full five (5) days before yourprocedure. b.NSAIDS: Ibuprofen (Motrin, Advil), Naproxen (Aleve, Naprosyn), Meloxicam (Mobic), Diclofenac (Voltaren), Indomethacin (Indocin), Relafen, or other medications as instructed. 4.Stop all over the counter cold, sinus, flu, or headache medications for a full five (5) days before the procedure. These medications can contain aspirin or NSAIDS. 5.Stop all natural, herbal or vitamin supplements (Vit. E, Fish Oil, etc.) for a full ten (10) daysbefore the procedure. 6.Do not EAT or DRINK anything eight (8) hours before your procedure. Please understand, there are no exceptions to the above medication instructions. Failure to follow will result in your procedure being cancelled Please call with any changes in your medical condition/history before your procedure appointment, this includes the following: a.Any type of surgery, other injections given by another physician b.Recent infections, such as: Colds, flu, sinus infection, urinary tract infection, pneumonia, or any skin wound or infection of any kind. c.Change in medications. If you have any of the listed changes in your medical history, OR if you have failed to follow the above instructions for medication, your procedure will need to be cancelled and rescheduled for another date. The above instructions are FOR YOUR SAFETY. Failure to follow the above instructions and, or failure to inform your physician of any health issues may result in serious complications that include, but are not limited to, bleeding, serious infection, paralysis, or . 05/16/2021 11:00:46 PM Discharge Instructions (08/10/2020) ([place]) [facility] Discharge Instructions POST PROCEDURE INSTRUCTIONS __x___There are no general limitations to your activities. You may experience some weakness for thenext 3-4 hours, in which case you should limit your activity until strength and sensation returns. x Your pain may increase for the next 24-48 hours, until the injection begins to relieve your pain. x Rest at home today. x Do not drive any vehicle, operate any heavy machinery or use any sharp objects for the remainder of the day. x Be cautious of stairways, since your coordination may be impaired and do not drink alcoholic beverages or make major decisions for 24 hours. x May resume driving a car in ____6___ hours if no sedation, and 24 hours with sedation. x Resume regular activity. x Resume your regular diet. x Progress diet slowly, starting with water. If no difficulty with swallowing, progress to clear liquids (tea, broth, malik yancy) and then on to solids. x Resume aspirin products/blood thinners in 24 hours. Start Lovenox injections or other blood thinners in 24 hours after procedure. x Keep bandaid dry and remove in 24 hours. MEDICATIONS: BEFORE PROCEDURE x Physician s Pre-procedure Instruction Sheet given to patient. x Stop Coumadin/Pradaxa/Eliquis/Xarelto for 5 days before procedure - date . Have ProTime drawn on (Try to have drawn at [facility] to speed results to us). x Stop blood thinners Plavix, Pletal for 10 days before procedure date . x Stop Aspirin, Persantine, Aggrenox for 7 days before procedure date . x Stop Lovenox 24 hours before your appointment time. x Stop anti-inflammatory medications (Aleve, Advil, Mobic, Naprosyn, etc.) for 5 days before procedure. x Stop ALL Supplements and Vitamins for 10 days before your procedure. x Take blood pressure medications the day of your procedure. x Do not eat ____6 hours before procedure. x Do not drink ____2____ hours before procedure. x May have clear liquids (water, plain tea/coffee, clear soda) up to 2 hours before procedure. x Bring someone to drive you home. [facility] 12-30-2021 Hospital Discharge instructions Patient Education 05/09/2021 13:41:56 Back and Neck Pain, General General Neck and Back Pain Both neck and back pain are usually caused by injury to the muscles or ligaments of the spine. Sometimes the disks that separate each bone of the spine may cause pain by pressing on a nearby nerve. Back and neck pain may appear after a sudden twisting or bending force (such as in a car accident), or sometimes after a simple awkward movement. In either case, muscle spasm is often present and adds to the pain. Acute neck and back pain usually gets better in 1 to 2 weeks. Pain related to disk disease, arthritis in the spinal joints or spinal stenosis (narrowing of the spinal canal) can become chronic and last for months or years. Back and neck pain are common problems. Most people feel better in 1 or 2 weeks, and most of the rest in 1 to 2 months. Most people can remain active. People have and describe pain differently. Pain can be sharp, stabbing, shooting, aching, cramping, or burning Movement, standing, bending, lifting, sitting, or walking may worsen the pain Pain can be localized to one spot or area, or it can be more generalized Pain can spread or radiate upwards, downwards, to the front, or go down your arms Muscle spasm may occur. Most of the time mechanical problems with the muscles or spine cause the pain. it is usually causedby an injury, whether known or not, to the muscles or ligaments. While illnesses can cause back pain, it is usually not caused by a serious illness. Pain is usually related to physical activity, whether sports, exercise, work, or normal activity. Sometimes it can occur without an identifiable cause. This can happen simply by stretching or moving wrong, without noting pain at the time. Other causes include: Overexertion, lifting, pushing, pulling incorrectly or too aggressively. Sudden twisting, bending or stretching from an accident (car or fall), or accidental movement. Poor posture Poor conditioning, lack of regular exercise Spinal disc disease or arthritis Stress , or illness like appendicitis, bladder or kidney infection, pelvic infections Home care For neck pain: Use a comfortable pillow that supports the head and keeps the spine in a neutral position. The position of the head should not be tilted forward or backward. When in bed, try to find a position of comfort. A firm mattress is best. Try lying flat on your back with pillows under your knees. You can also try lying on your side with your knees bent up towardsyour chest and a pillow between your knees. At first, do not try to stretch out the sore spots. If there is a strain, it is not like the good soreness you get after exercising without an injury. In this case, stretching may make it worse. Don't sit for long periods, as in long car rides or other travel. This puts more stress on the lower back than standing or walking. During the first 24 to 72 hours after an injury, apply an ice pack to the painful area for 20 minutes and then remove it for 20 minutes over a period of 60 to 90 minutes or several times a day. You can alternate ice and heat therapies. Talk with your healthcare provider about the best treatment for your back or neck pain. As a safety precaution, do not use a heating pad at bedtime. Sleepingwith a heating pad can lead to skin ascencio or tissue damage. Therapeutic massage can help relax the back and neck muscles without stretching them. Be aware of safe lifting methods and do not lift anything over 15 pounds until all the pain is gone. Medicines Talk to your healthcare provider before using medicine, especially if you have other medical problems or are taking other medicines. You may use [id number]-[id number] medicine to control pain, unless another pain medicine was prescribed.If you have chronic conditions like diabetes, liver or kidney disease, stomach ulcers, gastrointestinal bleeding, or are taking blood thinner medicines. Be careful if you are given pain medicines, narcotics, or medicine for muscle spasm. They can causedrowsiness, and can affect your coordination, reflexes, and judgment. Do not drive or operate heavymachinery. Follow-up care Follow up with your healthcare provider, or as advised. Physical therapy or further tests may be needed. If X-rays were taken, you will be notified of any new findings that may affect your care. Call 911 Call 911 if any of the following occur: Trouble breathing Confusion Very drowsy or trouble awakening Fainting or loss of consciousness Rapid or very slow heart rate Loss of bowel or bladder control When to seek medical advice Call your healthcare provider right away if any of these occur: Pain becomes worse or spreads into your arms or legs Weakness, numbness or pain in one or both arms or legs Numbness in the groin area Difficulty walking Fever of 100.4 F (38 C) or higher, or as directed by your healthcare provider [id number] [employer]. [address] [place] [address]. All rights reserved. This information is not intended as a substitute for professional medical care. Always follow yourhealthcare professional's instructions. Follow Up Care 05/09/2021 10:47:33 With:NALLELY DIAZ MD, Neurosurgery Address: When:5 to 7 days [facility] 08-19-2021 History of Present illness Narrative* Farhana Vallejo RN - 12/27/2020 2:40 PM EDT [facility] Progress Note: Rickie Ortiz is a 70 y.o. male presents with the following: Medication reconciliation completed and continued education regarding medications provided to patient. Med sheets and AVS provided. Follow up schedule reviewed. Emotional support provided. Patient verbalized understanding and appreciation. Transplant Info: DOT: 05/31/2020 (Lung) Immunosuppression: Tacrolimus: 2mg in the morning and 3mg in the evening Mycophenolate Mofetil: 1000mg twice daily Prednisone: Decreased to 5mg daily Prescriptions: Valtrex and Prednisone Rx sent to [facility] Current Outpatient Medications Medication Sig Dispense Refill acetaminophen 325 MG tablet Take 2 tablets by mouth every 6 hours as needed for Mild Pain or Moderate Pain. 100 tablet 3 alendronate 70 MG tablet Take 1 tablet by mouth every 7 days. 12 tablet 3 aspirin 81 MG Chew Tab chewable tablet Chew 1 tablet daily. 90 tablet 3 azithromycin 250 MG tablet Take 1 tablet by mouth every Thursday, Thursday and Thursday. 39 tablet 3 calcium citrate-vitamin D 315-250 MG-UNIT tablet Take 1 tablet by mouth every 12 hours. 180 tablet 3 cetirizine 10 MG tablet Take 1 tablet by mouth daily. 90 tablet 3 ergocalciferol 1.25 MG (02614 UT) capsule Take 1 capsule by mouth once a week. 12 capsule 3 ferrous sulfate 325 (65 Fe) MG Tab DR tablet Take 1 tablet by mouth daily. 90 tablet 3 fluticasone 50 MCG/ACT Suspension nasal spray 2 sprays by Nasal route daily. 9.9 mL 11 guaiFENesin 600 MG Tab SR 12 HR tablet SR Take 1 tablet by mouth 2 times daily as needed for Congestion. 180 tablet 1 magnesium oxide 400 (241.3 Mg) MG tablet Take 1 tablet by mouth 2 times daily. 180 tablet 3 montelukast 10 MG tablet Take 1 tablet by mouth daily. 90 tablet 3 multivitamin w/ minerals tablet Take 1 tablet by mouth daily. 90 tablet 3 mycophenolate mofetil (generic) 500 MG tablet Take 2 tablets by mouth every 12 hours. 360 tablet 3 pantoprazole [address] tablet DR Take 1 tablet by mouth daily every morning. 90 tablet 3 predniSONE 5 MG tablet Take 1 tablet by mouth daily. 90 tablet 3 sulfamethoxazole-trimethoprim 800-160 MG per tablet Take 1 tablet by mouth three times a week. 39 tablet 3 tacrolimus (generic) 1 MG capsule Take 2 capsules by mouth 2 times daily. (Patient taking differently: Take 2 mg by mouth 2 times daily. Taking 2mg in the morning and 3mg in the evening.) 360 capsule3 Tamsulosin HCl 0.4 MG capsule Take 2 capsules by mouth daily. 180 capsule 3 ondansetron 4 MG Tab Dispersible tablet Take 1 tablet by mouth every 8 hours as needed. (Patient not taking: Reported on 12/27/2020) 20 tablet 0 tacrolimus (generic) 0.5 MG capsule Take 1 capsule by mouth 2 times daily. Total dose 2.5mg BID; use 1mg caps to complete dose (Patient not taking: Reported on 12/27/2020) 180 capsule 3 valACYclovir 500 MG tablet Take 1 tablet by mouth every 12 hours. 180 tablet 2 No current facility-administered medications for this visit. Objective: Vitals: 12/27/20 1419 BP: 126/75 Pulse: 97 Resp: 18 SpO2: 97% Weight: 97.4 kg (214 lb 12.8 oz) Height: 1.727 m (5' 8 ) Wt Readings from Last 3 Encounters: 12/27/20 97.4 kg (214 lb 12.8 oz) 11/26/20 94.8 kg (209 lb 1.6 oz) 10/29/20 93.6 kg (206 lb 4.8 oz) DOMINICK Lomeli, RN, [facility] Lung Senior Analytic Consultant * Ed Ortega, - 12/27/2020 2:40 PM EDT Images from the original note were not included. LUNG TRANSPLANT PROGRESS NOTE Referring provider: Chandan Driscollley is a 70 y.o. male s/p lung transplantation. 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) Allograft function: decreased today 8/19/21 - in setting of weight gain Immunosuppression, therapeutic drug monitoring, high risk meds PLAN: - Tacrolimus: Goal trough: 8-10 (age, renal dysfunction); Current dose = 2.5 mg BID - Mycophenolate: 1000 mg BID - Steroids: prednisone decrease to 5mg/day - ADE prophylaxis: azithromycin 250mg MWF - 6 month surveillance bronchoscopy on 12/04/20 showed [id number] Respiratory 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) [place] right lung COPD Seasonal allergies (was on allergy shots prior to transplant) Relates daytime drowsiness/no apneas/no snoring (no Hx SCOTT) PLAN: - GoSpiro home spirometry; Monthly in-lab spirometry - on fluticasone nasal, singulair and loratidine - Nocturnal oximetry home test pending ID CMV: D-/R- EBV: D+/R+ Hypogammaglobulinemia Vaccinations - Influenza: 01/31/20 - PCV13: 12/22/15 - PPSV23: 01/03/19 - COVID-19: 07/09/20, 08/06/20, 12/24/20 PLAN - Received COVID Booster - Restart valacyclovir Prophylaxis: - Bactrim 1 DS QMWF - IVIG infusion upcoming CV CAD PLAN: - ASA, statin Renal CKD PLAN: - Monitor BUN/Cr GI/FEN GERD Obesity Body mass index is 32.66 kg/m . 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 Lung, left pneumonectomy, explant: Lung with severe emphysema. 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 - Graft function - Reference FEV1 = 2.21L (as of 10/29/20) - Status - CMV: D-/R- - EBV: D+/R+ - Infection: - Donor cultures: E. Coli and Enteroccous, strep anginossus - Recipient cultures: negative - 05/31/20 BAL: E coli, E faecalis, S anginosus - Transbronchial biopsies: - 07/03/20: A0BX - 09/04/20: A0B0 - 12/04/20: A1Bx - Pre-transplant issues - GERD - Iron deficiency anemia - Hyperglycemia - Osteoporosis - Post-transplant issues - Small residual pneumothorax, resolved - LUIS ENRIQUE - Anxiety - Iron deficiency anemia - Hypogammaglobulinemia s/p IVIG 07/12/20 - Alloscreen Lab Results Component Value Date ABSPC No DSA detected 11/26/2020 ABSPC No DSA detected 08/30/2020 ABSPC No DSA detected 06/18/2020 ABSPC DQ6/DQA1*01:03 04/25/2020 ABSPC DQ6/DQA1*01:03 03/06/2020 INTERVAL HISTORY Rickie Ortiz returns to the Lung Transplant Clinic for post-transplant follow- up of his LSLTx performed on 05/31/20 (CMV D-/R-). Overall, he feels that he is doing well, with no respiratory complaints. We discussed a decline in his PFTs, however he relates no respiratory symptoms. He has gained about 15# since the beginning of summer - we discussed weight loss and dietary proportion control. He has been following with dermatology and was found to have some actinic keratosis. He is following closely with them. REVIEW OF SYSTEMS All other systems reviewed and are negative for pertinent findings except as mentioned in the HPI/Interval History. MEDICATIONS AND ALLERGIES Current Outpatient Medications Medication Sig Last Dose Start Date End Date Authorizing Provider acetaminophen 325 MG tablet 650 mg, Oral, EVERY 6 HOURS NEEDED Taking 07/19/20 Ed Ortega, DO alendronate 70 MG tablet 70 mg, Oral, EVERY 7 DAYS Taking 07/19/20 Ed Ortega, DO aspirin 81 MG Chew Tab chewable tablet 81 mg, Oral, DAILY Taking 07/19/20 Ed Ortega, DO azithromycin 250 MG tablet 250 mg, Oral, EVERY M, W & F Taking 07/20/20 07/19/24 Ed Ortega DO calcium citrate-vitamin D 315-250 MG-UNIT tablet 1 tablet, Oral, EVERY 12 HOURS Taking 07/19/20 Ed Ortega DO cetirizine 10 MG tablet 10 mg, Oral, DAILY Taking 12/14/20 Ed Ortega DO ergocalciferol 1.25 MG (98930 UT) capsule 50,000 Units, Oral, WEEKLY Taking 08/30/20 Dieter Ivey MD, PhD ferrous sulfate 325 (65 Fe) MG Tab DR tablet 325 mg, Oral, DAILY Taking 07/19/20 Ed OrtegaDO fluticasone 50 MCG/ACT Suspension nasal spray 2 sprays, Nasal, DAILY Taking 09/24/20 Wilfredo Easley MD guaiFENesin 600 MG Tab SR 12 HR tablet SR 600 mg, Oral, 2 TIMES DAILY NEEDED Taking 08/30/20 Dieter Ivey MD, PhD magnesium oxide 400 (241.3 Mg) MG tablet 400 mg, Oral, 2 TIMES DAILY Taking 08/30/20 Dieter Ivey MD, PhD montelukast 10 MG tablet 10 mg, Oral, DAILY Taking 08/30/20 Dieter Ivey MD, PhD multivitamin w/ minerals tablet 1 tablet, Oral, DAILY Taking 07/19/20 Ed Ortega DO mycophenolate mofetil (generic) 500 MG tablet 1,000 mg, Oral, EVERY 12 HOURS Taking 07/19/20 Ed Ortega DO pantoprazole [address] DR 40 mg, Oral, DAILY EVERY MORNING Taking 07/19/20 Ed Ortega, DO predniSONE 5 MG tablet 10 mg, Oral, DAILY Taking 07/19/20 Ed Ortega, DO sulfamethoxazole-trimethoprim 800-160 MG per tablet 1 tablet, Oral, THREE TIMES WEEKLY Taking 07/20/20 07/20/21 Ed Ortega DO tacrolimus (generic) 1 MG capsule 2 mg, Oral, 2 TIMES DAILY Patient taking differently: Take 2 mg by mouth 2 times daily. Taking 2mg in the morning and 3mg in the evening. Taking Differently 12/14/20 Ed Ortega DO Tamsulosin HCl 0.4 MG capsule 0.8 mg, Oral, DAILY Taking 07/19/20 Ed Ortega DO ondansetron 4 MG Tab Dispersible tablet 4 mg, Oral, EVERY 8 HOURS NEEDED Patient not taking: Reported on 12/27/2020 Not Taking 11/05/20 Carol Renee MD tacrolimus (generic) 0.5 MG capsule 0.5 mg, Oral, 2 TIMES DAILY, Total dose 2.5mg BID; use 1mg capsto complete dose Patient not taking: Reported on 12/27/2020 Not Taking 12/26/20 Ed Ortega DO valACYclovir 500 MG tablet 500 mg, Oral, EVERY 12 HOURS 12/27/20 Ed Ortega, Allergies: No Known Allergies PHYSICAL EXAM BP 126/75 (BP Location: Left arm, BP Position: Sitting) Pulse 97 Resp 18 Ht 1.727 m (5' 8 ) Wt 97.4 kg (214 lb 12.8 oz) SpO2 97% Comment: RA BMI 32.66 kg/m Smoking Status Former Smoker Body mass index is 32.66 kg/m . Wt Readings from Last 3 Encounters: 12/27/20 97.4 kg (214 lb 12.8 oz) 11/26/20 94.8 kg (209 lb 1.6 oz) 10/29/20 93.6 kg (206 lb 4.8 oz) GENERAL: No apparent distress. HEENT:No scleral icterus. Moist mucus membranes. No erythema or exudate. NECK: Neck supple. No lymphadenopathy. No thyromegaly. No stridor. CARDIOVASCULAR: Regular rate and regular rhythm. No murmurs, rubs or gallops. Normal S1 and S2. PULMONARY: Clear to auscultation bilaterally. R lung diminished and L lung clear throughout. No wheezing, rhonchi or rales. GASTROINTESTINAL: Soft, non-tender, non-distended. Bowel sounds present. MUSCULOSKELETAL: No cyanosis, clubbing. No joint effusions or erythema. SKIN: Warm and dry. No jaundice or rash. No LE edema. NEUROLOGIC: A&O x 3. Moves all extremities. Gait normal. PSYCHIATRIC: Affect normal. Mood normal. DATA REVIEW CBC Lab Results Component Value Date WBC 5.8 12/17/2020 HGB 12.2 12/17/2020 HCT 38.5 12/17/2020 PLATELET 192 12/17/2020 MCV 101.9 (H) 11/26/2020 CMP Lab Results Component Value Date SODIUM 144 12/17/2020 POTASSIUM 4.0 12/17/2020 CHLORIDE 112 12/17/2020 CO2 26.0 12/17/2020 BUN 26 12/17/2020 CREATSERUM 1.06 12/17/2020 GLUCOSE 108 12/17/2020 Lab Results Component Value Date ALT 9 (L) 11/26/2020 AST 15 11/26/2020 GGT 23 10/29/2020 ALKPHOS 68 11/26/2020 BILITOTAL 0.4 11/26/2020 BILIDIRECT 0.1 11/26/2020 Lab Results Component Value Date CMVPCR <50 11/26/2020 Imaging/Radiological Studies I have personally reviewed and interpreted the radiographic data in [facility]. PFT Results Some values may be hidden. Unless noted otherwise, only the newest values recorded on each date aredisplayed. PFT Results 10/26/19 01/25/20 04/25/20 06/21/20 06/28/20 07/05/20 07/19/20 08/02/20 08/30/20 09/24/20 10/29/20 11/26/20 12/27/20 FVC-Pre 1.88 Liters 2.91 Liters 2.48 Liters 2.68 Liters 2.73 Liters 2.91 Liters 3.01 Liters 2.92 Liters 2.96 Liters 3.15 Liters 3.04 Liters 3.27 Liters 3.31 Liters FVC-%Pred-Pre 47 % 73 % 62 % 67 % 68 % 73 % 75 % 74 % 75 % 80 % 77 % 83 % 84 % FEV1-Pre 0.61 Liters 0.81 Liters 0.72 Liters 2.09 Liters 2.03 Liters 2.06 Liters 2.06 Liters 2.11 Liters 2.08 Liters 2.16 Liters 2.11 Liters 2.31 Liters 2.04 Liters FEV1-%Pred-Pre 21 % 27 % 24 % 71 % 69 % 70 % 70 % 73 % 72 % 75 % 73 % 80 % 71 % FEV1/FVC-Pre 33 % 28 % 29 % 78 % 74 % 71 % 68 % 72 % 70 % 69 % 70 % 71 % 62 % [id number] 0.19 L/sec 0.21 L/sec 0.18 L/sec 1.87 L/sec 1.54 L/sec 1.31 L/sec 1.16 L/sec 1.49 L/sec 1.37 L/sec 1.33 L/sec 1.3 L/sec 1.58 L/sec 0.94 L/sec TLCPleth-Pre 8.45 Liters 8.79 Liters 8.57 Liters 7.34 Liters 7.58 Liters RVPleth-Pre 6.32 Liters 5.53 Liters 5.96 Liters 4.19 Liters 4.23 Liters DLCOunc-Pre 13.97 mL/mmHg/min 16.03 mL/mmHg/min 15.14 mL/mmHg/min 17.01 mL/mmHg/min 18.62 mL/mmHg/min DLCOunc-%Pred-Pre 56 % 70 % 66 % 75 % 75 % DLCOcor-%Pred-Pre 57 % 69 % 88 % 81 % Some values recorded on this date have been omitted. PULMONARY CT chest 11/26/20 Lungs and Pleura: Interval postoperative changes from unilateral left lung transplant. The transplant lung is clear apart from minimal subsegmental atelectasis at the base. [facility] [place] right lung is again noted to have severe centrilobular emphysema, which is diffuse, but worst in the upper lung. Mild diffuse right-sided bronchial wall thickening. No suspicious pulmonary nodule. No consolidation. No pleural fluid. No pneumothorax. Expiratory views demonstrate asymmetric air retention of the right lung, likely relating to obstruction from COPD. No evidence of air-trapping in the transplanted left lung.Tracheobronchial tree: Central airways are patent with postoperative changes on the left. No anastomotic narrowing. CXR - 12/27/20 Clear Left lung allograft Venous Duplex - 06/13/20 Neg BLE Sleep Study 6MWT 11/26/20: 1388 feet (437 Meters) lowest Sp02 96% Oxygen requirement: Room air 08/04/20: 984 feet (300 meters), lowest SpO2 98%, oxygen requirement: Room air CARDIOLOGY TTE - 09/28/19 (OS[facility]) The study was technically difficult. The estimated ejection traction is 65 2. Normal diastology for age. C/C - OSH R/LHC records (11/2019) GI GES - 03/28/20 Normal gastric emptying pH probe - Esophageal Manometry - Impression: Normal ambulatory esophageal pH study. Health Maintenance Bone Density - 04/2020 Lumbar Spine (L1-L4): g/om2 (0.868) / T-soore (-3.1) / Z- score (-2.6) Findings are suggestive of osteoporosis with a high fracture risk. Left Femur Total: g/cm2 (0.966) / T-score (-0.9) / Z-score (-0.2) Left Femoral Neck g/om2 (0.864) / T-soore (-1.6) / Z-score (-0.3) Right Femur Total: g/cm2 (1.012) / T-score (-0.6) / Z-score (0.1) Right Femoral Neck: g/cm2 (0.878) / T-score (-1.5) / Z-score (-0.2) Colonoscopy - 2016 DIAGNOSIS: SIGMOID COLON, POLYP @ 15 CM - POLYPOID COLONIC MUCOSAL FRAGMENT WITH LYMPHOID FOLLICLE FORMATION. PSA - 10/26/19 0.96 Ed Ortega DO Division of Pulmonary, Critical Care & Sleep Medicine Department of Internal Medicine [facility] Instructions* Patient Instructions* Ed Ortega DO - 12/27/2020 2:40 PM EDT You were [facility] today in [facility] for a Post-transplant visit. Medication changes today Change tacrolimus to 2.5mg twice daily Restart Valtrex Decrease prednisone to 5mg/day Other orders Weight loss! Proportion control Keep up the physical activity Vaccinations due Shingrix (Shingles) - This is the safe Shingles vaccine for lung transplant patients - it is given in 2 doses Please call our office at [phone], if you have any questions or concerns [facility] Miscellaneous Notes* Nursing Notes - Macey Kang RCP - 12/04/2020 10:51 AM EDT Total fluoro time: 2:40 * Nursing Notes - Macey Kang RCP - 12/04/2020 10:50 AM EDT TBBX LLL: 10 passes * Nursing Notes - Macey Kang RCP - 12/04/2020 10:36 AM EDT Bal Lingula: 120cc in and 32cc out [facility] Future Appointments Appointment Date:03/04/2021 12:30:00 PM Scheduled Provider:ELISABETH QUIJANO MD Location:PM Office Appointment Type:PM OV Consult [facility] Evaluation + Plan note Future Appointments Appointment Date:04/23/2021 10:00:00 AM Scheduled Provider:ELISABETH QUIJANO MD Location:PM Office Appointment Type:PM OV [facility] Evaluation + Plan note Future Appointments Appointment Date:05/23/2021 12:45:00 PM Scheduled Provider: Location:[facility] [place] Appointment Type:PM Inj Spine L/S With Imaging [facility] Evaluation + Plan note Future Appointments Appointment Date:06/10/2021 12:30:00 PM Scheduled Provider:NALLELY DIAZ MD Location:[facility] Appointment Type:NS Old Patient New Problem Appointment Date:06/25/2021 12:30:00 PM Scheduled Provider: Location:[facility] [place] Appointment Type:PM Inj Spine L/S With Imaging Future Scheduled Tests Radiology* XR Spine Lumbar AP/LAT 06/05/21 [facility] evaluation + Plan note Future Appointments Appointment Date:06/25/2021 12:30:00 PM Scheduled Provider: [facility] Appointment Type:PM Inj Spine L/S With Imaging Future Scheduled Tests Radiology* XR Spine Lumbar AP/LAT 06/05/21 * XR Spine Lumbar AP/LAT/FLEX/EXT 06/10/21 [facility] Evaluation + Plan note Future Appointments Appointment Date:06/25/2021 12:30:00 PM Scheduled [facility] Type:PM Inj Spine L/S With Imaging Appointment Date:06/26/2021 02:15:00 PM Scheduled Provider:NALLELY DIAZ MD Location:[facility] Appointment Type:NS OV Future Scheduled Tests Radiology* XR Spine Lumbar AP/LAT 06/05/21 * XR Spine Lumbar AP/LAT/FLEX/EXT 06/10/21 [facility] evaluation + Plan note Future Appointments Appointment Date:04/22/2022 01:30:00 PM Scheduled Provider:ELISABETH QUIJANO MD Location:PM Office Appointment Type:PM OV Future Scheduled Tests Radiology* XR Hip Minimum 2 Views Left 08/15/21 * XR Hip Minimum 2 Views Right 08/15/21 * XR Spine Lumbar AP/LAT 06/05/21 [facility] Evaluation + Plan note Future Appointments Appointment Date:06/04/2022 08:00:00 AM Scheduled Provider:ELISABETH QUIJANO MD Location:PM Office Appointment Type:PM OV Future Scheduled Tests Radiology* XR Hip Minimum 2 Views Left 08/15/21 * XR Hip Minimum 2 Views Right 08/15/21 * XR Spine Lumbar AP/LAT 06/05/21 [facility] Evaluation + Plan note Future Appointments Appointment Date:06/18/2022 07:00:00 AM Scheduled Provider: Location:[facility] [place] Appointment Type:PM Inj Spine L/S With Imaging Future Scheduled Tests Radiology* XR Hip Minimum 2 Views Left 08/15/21 * XR Hip Minimum 2 Views Right 08/15/21 * XR Spine Lumbar AP/LAT 06/05/21 [facility] Evaluation + Plan note Future Appointments Appointment Date:07/31/2022 11:30:00 AM Scheduled [facility]: [facility] Type:PM Inj Spine L/S With Imaging Future Scheduled Tests Radiology* XR Hip Minimum 2 Views Left 08/15/21 * XR Hip Minimum 2 Views Right 08/15/21 [facility] Evaluation note* Diagnosis 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 Encounter for aftercare following lung transplant Aftercare following organ transplant [facility] Diagnosis S/P lung transplant- Primary 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 Immunosuppression Unspecified disorder of immune mechanism High risk medication use Encounter for long-term (current) use of other medications Therapeutic drug monitoring Encounter for therapeutic drug monitoring Abnormal blood chemistry Other abnormal blood chemistry Hypogammaglobulinemia Hypogammaglobulinaemia, unspecified [facility] Diagnosis 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 Encounter for aftercare following lung transplant Aftercare following organ transplant [facility]* Diagnosis 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 Encounter for aftercare following lung transplant Aftercare following organ transplant [facility]* Diagnosis S/P lung transplant- Primary 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 Immunocompromised Unspecified immunity deficiency Hyperkalemia Hyperpotassemia High risk medication use Encounter for long-term (current) use of other medications Therapeutic drug monitoring Encounter for therapeutic drug monitoring Abnormal blood chemistry Other abnormal blood chemistry SCOTT (obstructive sleep apnea) Obstructive sleep apnea (adult) (pediatric) Pulmonary emphysema, unspecified emphysema type Obesity (BMI 30-39.9) Obesity, unspecified Physical deconditioning Debility, unspecified [facility]* Diagnosis 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 Encounter for aftercare following lung transplant Aftercare following organ transplant [facility]* Diagnosis 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 Encounter for aftercare following lung transplant Aftercare following organ transplant [facility]* Diagnosis 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 Encounter for aftercare following lung transplant Aftercare following organ transplant [facility]* Diagnosis 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 Encounter for aftercare following lung transplant Aftercare following organ transplant [facility]* Diagnosis S/P lung transplant- Primary 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 High risk medication use Encounter for long-term (current) use of other medications Immunosuppression due to drug therapy Encounter for aftercare following lung transplant Aftercare following organ transplant Physical deconditioning Debility, unspecified Obesity (BMI 30-39.9) Obesity, unspecified SCOTT (obstructive sleep apnea) Obstructive sleep apnea (adult) (pediatric) Pulmonary emphysema, unspecified emphysema type Hypogammaglobulinemia Hypogammaglobulinaemia, unspecified documented in this encounter [facility] note* Diagnosis 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 Encounter for aftercare following lung transplant Aftercare following organ transplant [facility]* Diagnosis S/P lung transplant- Primary 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 Encounter for therapeutic drug level monitoring Encounter for therapeutic drug monitoring High risk medication use Encounter for long-term (current) use of other medications Immunosuppression Unspecified disorder of immune mechanism Encounter for aftercare following lung transplant Aftercare following organ transplant [facility]* Diagnosis 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 Encounter for aftercare following lung transplant Aftercare following organ transplant Pulmonary emphysema, unspecified emphysema type [facility] this 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 Encounter for aftercare following lung transplant Aftercare following organ transplant Pulmonary emphysema, unspecified emphysema type [facility] Diagnosis 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 Encounter for aftercare following lung transplant Aftercare following organ transplant [facility]* Diagnosis 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 Encounter for aftercare following lung transplant Aftercare following organ transplant [facility]* Diagnosis S/P lung transplant- Primary 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 High risk medication use Encounter for long-term (current) use of other medications Immunosuppression due to drug therapy Encounter for aftercare following lung transplant Aftercare following organ transplant Physical deconditioning Debility, unspecified Encounter for preoperative pulmonary examination Encounter for therapeutic drug monitoring [facility]* Diagnosis Lumbar stenosis with neurogenic claudication- Primary Lumbar stenosis with neurogenic claudication [facility] Diagnosis Lumbar stenosis with neurogenic claudication [facility]* Diagnosis Lumbar stenosis with neurogenic claudication [facility]* Diagnosis Lumbar stenosis with neurogenic claudication- Primary [facility]* Diagnosis 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 Encounter for aftercare following lung transplant Aftercare following organ transplant [facility]* Diagnosis Somnolence- Primary Other alteration of consciousness 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 Anginal equivalent Shortness of breath Encounter for aftercare following lung transplant Aftercare following organ transplant Chest pain, unspecified type SOB (shortness of breath) Shortness of breath documented in this [facility]* Diagnosis Lumbar stenosis with neurogenic claudication [facility]* Diagnosis Lumbar stenosis with neurogenic claudication- Primary Spondylolisthesis of lumbar region [facility]* Diagnosis 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 reason for visit Narrative* Auth/Cert Specialty Diagnoses / Procedures Referred By Shannon kirk Referred To Contact Diagnoses S/P lung transplant Encounter for aftercare following lung transplant S/P lung transplant [Z94.2] Encounter for aftercare following lung transplant [Z48.24] Procedures NV BRONCHOSCOPY W/TRANSBRONCHIAL LUNG BX 1 LOBE BRONCHOSCOPY W/ TRANSBRONCHIAL BX SINGLE LOBE Referral ID Status Reason Start Date Expiration Date Visits Re quested Visits Authorized [id number] 1 1 [facility] Advance Directives No Advanced Directives Records FoundLatest Code Status on File Code Status Date Activated Date Inactivated Comments Full Code 05/31/2020 3:57 AM Latest Code Status on File Code Status Date Activated Date Inactivated Comments Full Code 05/31/2020 3:57 AM Latest Code Status on File Code Status Date Activated Date Inactivated Comments Full Code 05/31/2020 3:57 AM Latest Code Status on File Code Status Date Activated Date Inactivated Comments Full Code 05/31/2020 3:57 AM Latest Code Status on File Code Status Date Activated Date Inactivated Comments Full Code 11/13/2022 1:21 PM 11/15/2022 2:05 PM Latest Code Status on File Code Status Date Activated Date Inactivated Comments Full Code 11/13/2022 1:21 PM 11/15/2022 2:05 PM Reason for Referral Specialty Diagnoses / Procedures Referred By Shannon kirk Referred To Contact Diagnoses S/P lung transplant Anginal equivalent Shortness of breath Encounter for aftercare following lung transplant Chest pain, unspecified type Procedures NUC MYOCARD PERF STRESS MIBI PHARM NV CHG MYOCARDIAL SPECT MULTIPLE STUDIES CHG MYOCARDIAL SPECT MULTIPLE STUDIES-T NV CARDIAC STRESS TST,INTERP/REPT ONLY NV CV STRS TST XERS&/OR RX CONT ECG W/O I&R Wilfredo Easley MD [address] [place] [address] Referral ID Status Reason Start Date Expiration Date V isits Requested Visits Authorized [id number] New Request 02/23/2023 03/19/2024 1 1 Specialty Diagnoses / Procedures Referred By Shannon kirk Referred To Contact Diagnoses S/P lung transplant Somnolence Procedures SLEEP STUDY - DIAGNOSTIC NV POLYSOM 6/>YRS SLEEP 4/> ADDL GRADY ATTWilfredo Jeffries MD [address] [place] [address] Referral ID Status Reason Start Date Expiration Date V isits Requested Visits Authorized [id number] New Request 02/23/2023 03/19/2024 1 1 Specialty Diagnoses / Procedures Referred By Contac t Referred To Contact Physical Therapy Diagnoses Lumbar stenosis with neurogenic claudication Procedures NV OFFICE/OUTPATIENT NEW HIGH MDM 60-74 MINUTES Nisa Carmen, [employer] - [employer] PROFESSION[employer] [address] [place] [address] [address] Referral ID Status Reason Start Date Expiration Date V isits Requested Visits Authorized [id number] Closed Eval and Treat 12/17/2022 06/15/2023 99 99 Specialty Diagnoses / Procedures Referred By Contac t Referred To Contact Diagnoses S/P lung transplant Encounter for aftercare following lung transplant Procedures XR CHEST PA AND LATERAL Carol Renee MD [address] [place] [address] Referral ID Status Reason Start Date Expiration Date V isits Requested Visits Authorized [id number] Pending Review 11/24/2020 12/19/2021 1 1 Summary Purpose Family History No Family History Records FoundNo Family History Records FoundNo Family History Records Found Additional Source Comments Scheduled Active and Recently Administ ered Medications (unrecognized section and content) PRN Medication Order 12/02/2020 12/03/2020 12/04/2020 lidocaine (XYLOCAINE) 2 % topical gel (COMPLETED) Topical, ONCE NEEDED, 1 dose, Starting on Thu12/04/20 at 1035, Until Thu12/04/20 at 1035 1035 (Given - Provid er: Cortez Stearns RCP) lidocaine 1% (PF) (XYLOCAINE MPF) 1 % injection (COMPLETED) Infiltration, ONCE NEEDED, 1 dose, Starting on Thu12/04/20 at 1036, Until Thu12/04/20 at 1036 1036 (Given - Provid er: Cortez Stearns RCP) tetracaine-benzocaine (CETACAINE) topical spray 3 spray 3 spray, Oral, NEEDED, Starting on Thu12/04/20 at 0844, Until Thu12/04/20 at 1350, Mild Pain, Pre-op/Pre-Proc Scheduled Medication Order 11/13/2022 11/14/2022 11/15/2022 acetaminophen (Tylenol) tablet 1,000 mg (COMPLETED) 1,000 mg, Oral, Once, On Jacqueline 11/13/22 at 0615, For 1 dose, Preprocedure, Maximum dose of acetaminophen is 4000 mg from all sources in 24 hours. Do not administer if patient has taken tylenol <4 hours earlier. Do not give if contraindicated ie. patient has active liver disease or cirrhosis. 0629 (Given - Provider: Chantal Meyers RN) acetaminophen (Tylenol) tablet 650 mg 650 mg, Oral, Every 4 hours, First dose on Jacqueline 11/13/22 at 1345, Maximum dose of acetaminophen is 4000 mg from all sources in 24 hours. 1425 (Given - Provider: Allison Riggs RN)1754 (Given - Provider: Allison Riggs RN)2046 (Given - Provider: Amy Barnhart RN) 0049 (Given - Provider: Amy Barnhart RN)0501 (Given - Provider: Amy Barnhart RN)1001 (Given - Provider: Jessica Shetty RN)1457 (Given - Provider: Jessica Shetty RN)2015 (Given - Provider: Amy Barnhart RN) 0015 (Given - Provider: Amy Barnhart RN)0423 (Given - Provider: Amy Barnhart RN)0944 (Given - Provider: Edward Sellers RN)1215 (Canceled Entry - Provider: Automatic Discharge Provider - Comment: Automatically canceled at discontinue of medication order) atorvastatin (Lipitor) tablet 20 mg 20 mg, Oral, Daily, First dose on Jacqueline 11/13/22 at 1330, Phase II/On Unit 1425 (Given - Provider: Allison Riggs RN) 0958 (Given - Provider: Jessica Shetty RN) 0944 (Given - Provider: Edward Sellers RN) azithromycin (Zithromax) tablet 250 mg 250 mg, Oral, 3 times weekly (Once per day on Thu), First dose on Thu11/14/22 at 0900, Phase II/On Unit, Suspected Indication (Select all that apply): Immunocomp Host Prophylaxis 1216 (Given - Provider: Jessica Shetty RN) carvedilol (Coreg) tablet 3.125 mg 3.125 mg, Oral, 2 times daily, First dose (after last reorder) on Jacqueline 11/13/22 at 1330, Phase II/On Unit 1330 (Not Given - Provider: Allison Riggs RN - Reason: Other - Comment: pt took at home.)2045 (Given - Provider: Amy Barnhart RN) 0958 (Given - Provider: Jessica Shetty RN)2014 (Given - Provider: Amy Barnhart RN) 0944 (Given - Provider: Edward Sellers RN) ceFAZolin in dextrose 4% (Ancef) IVPB 2,000 mg (COMPLETED) 2,000 mg, IntraVENous, Administer over 30 Minutes, Once, On Jacqueline 11/13/22 at 0615, For 1 dose, Preprocedure, Administer within 1 hour prior to incision. Recommend to repeat in 3-4 hours after initial dose if still intra-op. premix bag, Suspected Indication (Select all that apply): Surgical Prophylaxis 0743 (Given - Provider: THERESA Palomares CRNA)1139 (Anesthesia Volume Adjustment - Provider: THERESA Palomares CRNA) ceFAZolin in dextrose 4% (Ancef) IVPB 2,000 mg (COMPLETED) 2,000 mg, IntraVENous, Administer over 30 Minutes, Every 8 hours, First dose on Jacqueline 11/13/22 at 1530, For 2 doses, Phase II/On Unit, premix bag, Suspected Indication (Select all that apply): Surgical Prophylaxis 1500 (New Bag - Provider: Allison Riggs RN)1530 (Stopped - Provider: Allison Riggs RN)2245 (New Bag - Provider: Amy Barnhart RN)2315 (Stopped - Provider: Amy Barnhart RN) docusate sodium (Colace) capsule 100 mg 100 mg, Oral, 2 times daily, First dose on Thu11/13/22 at 1330, Phase II/On Unit, Bowel Regimen - for prevention of constipation. 1426 (Given - Provider: Allison Riggs RN)2026 (Given - Provider: Amy Barnhart RN) 0958 (Given - Provider: Jessica Shetty RN)2015 (Given - Provider: Amy Barnhart RN) 0944 (Given - Provider: Edward Sellers RN) famotidine (Pepcid) tablet 20 mg (COMPLETED) 20 mg, Oral, Once, On Thu11/13/22 at 0615, For 1 dose, Preprocedure 0629 (Given - Provider: Chantal Meyers RN) ferrous sulfate tablet 325 mg 325 mg, Oral, Daily with breakfast, First dose on Thu11/14/22 at 0800, Phase II/On Unit 09 (Given - Provider: Jessica Shetty RN) 0944 (Given - Provider: Edward Sellers RN) fludrocortisone (Florinef) tablet 0.1 mg 0.1 mg, Oral, Daily, First dose on Thu11/13/22 at 1330, Phase II/On Unit 1330 (Not Given - Provider: Allison Riggs RN - Reason: Other - Comment: pt took at home.)1334 (Held by provider - Provider: THERESA Perez CNP - Reason: Other - Comment: Until md clarifies)1510 (Unheld by provider - Provider: Nisa Carmen APRN - PATRICK) 1010 (Given - Provider: Jessica Shetty RN) 0950 (Given - Provider: Edward Sellers RN) gabapentin (Neurontin) capsule 300 mg 300 mg, Oral, 2 times daily, First dose on Thu11/13/22 at 1330, Phase II/On Unit 1330 (Not Given - Provider: Allison Riggs RN - Reason: Other - Comment: pt took at home.)2026 (Given - Provider: Amy Barnhart RN) 0958 (Given - Provider: Jessica Shetty RN)2014 (Given - Provider: Amy Barnhart RN) 0944 (Given - Provider: Edward Sellers RN) Lidocaine 4 % patch 1 patch 1 patch, Topical, Administer over 12 Hours, Daily, First dose on Jacqueline 11/13/22 at 1330, Phase II/On Unit, Apply patch to Lumbar spine. Patch may remain in place for up to 12 hours in any 24 hour period. 1425 (Medication Applied - Provider: Allison Riggs RN) 0225 (Medication Removed - Provider: Amy Barnhart RN)0958 (Medication Applied - Provider: Jessica Shetty RN)2158 (Medication Removed - Provider: Amy Barnhart RN) 0900 (Not Given - Provider: Edward Sellers RN - Reason: Patient/family refused) mycophenolate (Cellcept) capsule 1,000 mg 1,000 mg, Oral, 2 times daily, First dose on Jacqueline 11/13/22 at 1330, Phase II/On Unit 1330 (Not Given - Provider: Allison Riggs RN - Reason: Other - Comment: pt took at home.)2050 (Given - Provider: Amy Barnhart RN) 1002 (Given - Provider: Jessica Shetty RN)2030 (Given - Provider: Amy Barnhart RN) 0944 (Given - Provider: Edward Sellers RN) pantoprazole (ProtoNix) EC tablet 40 mg 40 mg, Oral, Daily, First dose on Jacqueline 11/13/22 at 1330, Phase II/On Unit, Do not crush, chew, or split. 1330 (Not Given - Provider: Allison Riggs RN - Reason: Other - Comment: pt took at home) 0958 (Given - Provider: Jessica Shetty RN) 0944 (Given - Provider: Edward Sellers RN) polyethylene glycol (PEG) 3350 (Miralax) packet 17 g 17 g, Oral, Daily, First dose on Jacqueline 11/13/22 at 1330, Phase II/On Unit, Bowel Regimen - for prevention of constipation. 1425 (Given - Provider: Allison Riggs RN) 1003 (Given - Provider: Jessica Shetty RN) 0900 (Not Given - Provider: Edward Sellers RN - Reason: Patient/family refused) predniSONE (Deltasone) tablet 5 mg 5 mg, Oral, Daily, First dose on Thu11/13/22 at 1330, Phase II/On Unit 1330 (Not Given - Provider: Allison Riggs RN - Reason: Other - Comment: pt took at home.) 0958 (Given - Provider: Jessica Shetty RN) 0944 (Given - Provider: Edward Sellers RN) sodium chloride 0.9% (NS) flush 10 mL 10 mL, IntraVENous, Every 12 hours scheduled (2 times per day), First dose on Thu11/13/22 at 2100, Phase II/On Unit 2026 (Given - Provider: Amy Barnhart RN) 1004 (Given - Provider: Jessica Shetty, FREDY)2099 (Given - Provider: Amy Barnhart, RN) 0952 (Given - Provider: Edward Sellers RN) sulfamethoxazole-trimetho prim (Bactrim DS) 800-160 MG per tablet 1 tablet 1 tablet, Oral, 3 times weekly (Once per day on Thu), First dose on Thu11/14/22 at 0900, Phase II/On Unit, Suspected Indication (Select all that apply): Immunocomp Host Prophylaxis 1216 (Given - Provider: Jessica Shetty, FREDY) tacrolimus (Prograf) capsule 1.5 mg 1.5 mg, Oral, 2 times daily, First dose on Thu11/13/22 at 1330, Phase II/On Unit 1330 (Not Given - Provider: Allison Riggs RN - Reason: Other - Comment: took at home per pt)2046 (Given - Provider: Amy Barnhart, FREDY) 1002 (Given - Provider: Jessica Shetty, FREDY)2030 (Given - Provider: Amy Barnhart, RN) 0945 (Given - Provider: Edward Sellers RN) tamsulosin (Flomax) 24 hr capsule 0.4 mg 0.4 mg, Oral, Daily, First dose on Thu11/13/22 at 1330, Phase II/On Unit, Do not crush, chew, or split. 1330 (Not Given - Provider: Allison Riggs RN - Reason: Other - Comment: pt took at home per pt.) 0933 (Given - Provider: Jessica Shetty, FREDY) 0950 (Given - Provider: Edward Sellers RN) Continuous Medication Order 11/13/2022 11/14/2022 11/15/2022 lactated Ringer's (LR) infusion 50 mL/hr, IntraVENous, Continuous, Starting on Jacqueline 11/13/22 at 0615, Upon admission to sameday - please start iv if patient does not have iv access. Use 500ml NS for patients on dialysis. 0730 (New Bag - Provider: Jaylon Sandra APRN - CURRENCY COUNTER)1040 (New Bag - Provider: Jyalon Sandra APRN - CURRENCY COUNTER)1139 (Anesthesia Volume Adjustment - Provider: Jaylon aSndra APRN - HARSHAL) lactated ringers infusion (CANCELED) 125 mL/hr, IntraVENous, Continuous, Starting on Jacqueline 11/13/22 at 1130, Recovery (only) 1130 (New Bag - Provider: Reva Mcmanus RN) sodium chloride 0.9 % infusion (CANCELED) 75 mL/hr, IntraVENous, Continuous, Starting on Jacqueline 11/13/22 at 1330, Phase II/On Unit 1330 (New Bag - Provider: Allison Riggs RN) 0414 (New Bag - Provider: Amy Barnhart RN)1701 (Stopped - Provider: Jessica Shetty, FREDY) PRN Medication Order 11/13/2022 11/14/2022 11/15/2022 bacitracin-polymyxin b (Polysporin) ointment (CANCELED) As needed, Starting on Jacqueline 11/13/22 at 1042, Intraprocedure 1042 (Given - Provider: Romulo Jaimes MD) bisacodyl (Dulcolax) EC tablet 5 mg 5 mg, Oral, Daily PRN, constipation, Starting on Jacqueline 11/13/22 at 1320, Phase II/On Unit, 1st line for treatment of constipation - give scheduled if no bowel movement in past 24 hours. Do not crush, chew, or split. bisacodyl (Dulcolax) suppository 10 mg 10 mg, Rectal, Daily PRN, constipation, Starting on Jacqueline 11/13/22 at 1320, Phase II/On Unit, 2nd line for treatment of constipation - give scheduled (in addition to 1st line agent) if no bowel movement in past 48 hours gelatin absorbable (Gelfoam) sponge (CANCELED) As needed, Starting on Thu11/13/22 at 0827, Intraprocedure 0827 (Given - Provider: Romulo Jaimes MD - Comment: Combined with 10,000 units of thrombin for use at operative site.) HYDROmorphone (Dilaudid) injection 0.25 mg(Linked Group 1) 0.25 mg, IntraVENous, Every 4 hours PRN, moderate pain (4-6), Starting on Jacqueline 11/13/22 at 1338, If oral and IV narcotics ordered, use oral first and only use IV if oral is ineffective or cannot take oral. Do Not give oral and IV within 1 hour of each other unless specifically ordered. 175 (See Alternative - Provider: Allison Riggs, FREDY) HYDROmorphone (Dilaudid) injection 0.5 mg(Linked Group 1) 0.5 mg, IntraVENous, Every 4 hours PRN, severe pain (7-10), Starting on Jacqueline 11/13/22 at 1338, If oral and IV narcotics ordered, use oral first and only use IV if oral is ineffective or cannot take oral. Do Not give oral and IV within 1 hour of each other unless specifically ordered. 175 (Given - Provider: Allison Riggs, FREDY) ipratropium-albuterol (Duo-Neb) 0.5-2.5 mg/3 mL nebulizer solution 3 mL 3 mL, Nebulization, Every 4 hours PRN, wheezing, shortness of breath, Starting on Thu11/14/22 at 1314 naloxone (Narcan) 0.4 mg in 0.9% sodium chloride 10 mL syringe IntraVENous, PRN, opioid reversal, Starting on Thu11/13/22 at 1338, PRN if respiratory rate is less than 6/min and patient is difficult to arouse then notify physician STAT. Mix 9 mL of sodium chloride 0.9% with 0.4 mg (1 mL) of naloxone (NARCAN) in 10 mL syringe. (Note: dilution is 0.04 mg/mL) Give 0.08 mg (2 mL of special dilution), slow IV push, repeat up to 0.4 mg (10 mL) or until patient is responsive to physical stimulation and respiratory rate is equal to or greater than 6 breaths/min. Continue to observe, if no response within 3 minutes of administration of 0.4 mg (10 mL) total, repeat dose (0.4 mg as administered previously). ondansetron (Zofran) injection 4 mg(Linked Group 2) 4 mg, IntraVENous, Every 6 hours PRN, nausea, vomiting, Starting on Jacqueline 11/13/22 at 1320, Phase II/On Unit, 1st Line. Give IV if patient is unable to take orally. If inadequate response within 60 minutes, proceed to next-line agent or contact provider if no further options ordered. ondansetron ODT (Zofran-ODT) disintegrating tablet 4 mg(Linked Group 2) 4 mg, Oral, Every 8 hours PRN, nausea, vomiting, Starting on Jacqueline 11/13/22 at 1320, Phase II/On Unit, 1st Line. If inadequate response within 60 minutes, proceed to next-line agent or contact provider if no further options ordered. Patient should allow tablet to dissolve on tongue. Do not remove from blister pack until just before administering. oxyCODONE (Roxicodone) immediate release tablet 10 mg(Linked Group 3) 10 mg, Oral, Every 4 hours PRN, severe pain (7-10), Starting on Jacqueline 11/13/22 at 1338 1506 (Given - Provider: Allison Riggs RN)1924 (Given - Provider: Allison Riggs RN) 0049 (Given - Provider: Amy Barnhart RN)0502 (Given - Provider: Amy Barnhart RN)1001 (Given - Provider: Jessica Shetty RN)1818 (Given - Provider: Jessica Shetty, FREDY) 0015 (Given - Provider: Amy Barnhart RN)0423 (Given - Provider: Amy Barnhart RN)0943 (Given - Provider: Edward Sellers RN) oxyCODONE (Roxicodone) immediate release tablet 5 mg(Linked Group 3) 5 mg, Oral, Every 4 hours PRN, moderate pain (4-6), Starting on Jacqueline 11/13/22 at 1338 1506 (See Alternative - Provider: Allison Riggs, RN)1924 (See Alternative - Provider: Allison Riggs, RN) 0049 (See Alternative - Provider: Amy Barnhart, RN)0502 (See Alternative - Provider: Amy Barnhart, RN)1001 (See Alternative - Provider: Jessica Shetty, RN)1818 (See Alternative - Provider: Jessica Shetty, RN) 0015 (See Alternative - Provider: Amy Barnhart, RN)0423 (See Alternative - Provider: Amy Barnhart, RN)0943 (See Alternative - Provider: Edward Sellers RN) sodium chloride 0.9 % infusion 5-250 mL/hr, IntraVENous, PRN, if patient receiving piggyback infusions and maintenance fluids are not ordered OR KVO fluids to protect IV site / prevent frequent line interruptions/ long duration, Starting on Jacqueline 11/13/22 at 1320, Phase II/On Unit, For piggyback infusion, administer at same rate as piggyback for a total of 25 mL. Enter 25 mL into dose field and piggyback rate into rate field of order. If piggyback is infusing at a rate less than 100 mL/hr, enter 25 mL into dose field and 100 mL/hr into rate field of order. For KVO fluids, enter rate of 20 mL/hr or less into rate field of order. sodium chloride 0.9 % irrigation solution (CANCELED) As needed, Starting on Jacqueline 11/13/22 at 0827, Intraprocedure 0827 (Given - Provider: Romulo Jaimes MD - Comment: For irrigation intraop.) sodium chloride 0.9% (NS) flush 10 mL 10 mL, IntraVENous, PRN, line care, Starting on Jacqueline 11/13/22 at 1320, Phase II/On Unit, After every IV line use sterile water irrigation solution (CANCELED) As needed, Starting on Jacqueline 11/13/22 at 0827, Intraprocedure 0827 (Given - Provider: Romulo Jaimes MD - Comment: For instruments on back table.) SURGIFLO hemostatic matrix with thrombin kit (CANCELED) As needed, Starting on Jacqueline 11/13/22 at 0828, Intraprocedure 0828 (Given - Provider: Romulo Jaimes MD - Comment: Available to use as needed.) thrombin spray (CANCELED) As needed, Starting on Jacqueline 11/13/22 at 0828, Intraprocedure 0828 (Given - Provider: Romulo Jaimes MD - Comment: Combined with gelfoam for use at operative site.) tiZANidine (Zanaflex) tablet 4 mg 4 mg, Oral, Every 8 hours PRN, muscle spasms, Starting on Jacqueline 11/13/22 at 1320, Phase II/On Unit 1754 (Given - Provider: Allison Riggs RN) Linked Groups Order Group 1: HYDROmorphone (Dilaudid) injection 0.25 mgJump to med 0.25 mg, IntraVENous, Every 4 hours PRN, moderate pain (4-6), Starting on Jacqueline 11/13/22 at 1338
If oral and IV narcotics ordered, use oral first and only use IV if oral is ineffective or cannot take oral. Do Not give oral and IV within 1 hour of each other unless specifically ordered.
Or HYDROmorphone (Dilaudid) injection 0.5 mgJump to med 0.5 mg, IntraVENous, Every 4 hours PRN, severe pain (7-10), Starting on Jacqueline 11/13/22 at 1338
If oral and IV narcotics ordered, use oral first and only use IV if oral is ineffective or cannot take oral. Do Not give oral and IV within 1 hour of each other unless specifically ordered.
Group 2: ondansetron ODT (Zofran-ODT) disintegrating tablet 4 mgJump to med 4 mg, Oral, Every 8 hours PRN, nausea, vomiting, Starting on Jacqueline 11/13/22 at 1320, Phase II/On Unit
1st Line. If inadequate response within 60 minutes, proceed to next-line agent or contact provider if no further options ordered. Patient should allow tablet to dissolve on tongue. Do not remove from blister pack until just before administering.
Or ondansetron (Zofran) injection 4 mgJump to med 4 mg, IntraVENous, Every 6 hours PRN, nausea, vomiting, Starting on Jacqueline 11/13/22 at 1320, Phase II/On Unit
1st Line. Give IV if patient is unable to take orally. If inadequate response within 60 minutes, proceed to next-line agent or contact provider if no further options ordered.
Group 3: oxyCODONE (Roxicodone) immediate release tablet 5 mgJump to med 5 mg, Oral, Every 4 hours PRN, moderate pain (4-6), Starting on Jacqueline 11/13/22 at 1338 Or oxyCODONE (Roxicodone) immediate release tablet 10 mgJump to med 10 mg, Oral, Every 4 hours PRN, severe pain (7-10), Starting on Jacqueline 11/13/22 at 1338 Care Teams (unrecognized sec tion and content) 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 Start Date End Date Guerrero Bateman MD [address] [place] [address] [phone] PCP - General Family Medicine 03/06/20 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 Start Date End Date Guerrero Bateman MD [address] [place] [address] [phone] PCP - General Family Medicine 03/06/20 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 Start Date End Date Guerrero Bateman MD [address] [place] [address] [phone] PCP - General Family Medicine 03/06/20 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 Start Date End Date Guerrero Bateman MD [address] [place] [address] [phone] PCP - General Family Medicine 03/06/20 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 Start Date End Date Guerrero Bateman MD [address] [place] [address] [phone] PCP - General Family Medicine 03/06/20 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 Start Date End Date Guerrero Bateman MD [address] [place] [address] [phone] PCP - General Family Medicine 03/06/20 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 Start Date End Date Guerrero Bateman MD [address] [place] [address] [phone] PCP - General Family Medicine 03/06/20 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 Start Date End Date Guerrero Bateman MD [address] [place] [address] [phone] PCP - General Family Medicine 03/06/20 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 Start Date End Date Guerrero Bateman MD [address] [place] [address] [phone] PCP - General Family Medicine 03/06/20 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 Start Date End Date Guerrero Bateman MD [address] [place] [address] [phone] PCP - General Family Medicine 03/06/20 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 Start Date End Date Guerrero Bateman MD [address] [place] [address] [phone] PCP - General Family Medicine 03/06/20 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 Start Date End Date Guerrero Bateman MD [address] [place] [address] [phone] PCP - General Family Medicine 03/06/20 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 Start Date End Date Guerrero Bateman MD [address] [place] [address] [phone] PCP - General Family Medicine 03/06/20 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 Start Date End Date Guerrero Bateman MD [address] [place] [address] [phone] PCP - General Family Medicine 03/06/20 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 Start Date End Date Guerrero Bateman MD [address] [facility] [place] [address] PCP - General Family Medicine 03/06/20 11/03/22 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 Start Date End Date Ami Stratton [address] [place] D[place], [id number] PCP - General Family Medicine 11/06/22 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 Start Date End Date Ami Stratton [address] [place] Dio [place], [phone] PCP - General Family Medicine 11/06/22 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 Start Date End Date Ami Stratton [address] [address] PCP - General Family Medicine 11/06/22 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 Start Date End Date Ami Stratton [address] Bobby [place], [phone] PCP - General Family Medicine 11/06/22 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 Start Date End Date Aim Stratton [address] Bobby Wharton [place], [phone] PCP - General Family Medicine 11/06/22 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 Start Date End Date Farhana Paez FNP [address] [place] [phone] PCP - General Nurse Practitioner - Family 11/04/22 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 Start Date End Date Farhana Paez FNP [address] [place] [phone] PCP - General Nurse Practitioner - [facility] 11/04/22 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 Start Date End Date Farhana Paze FNP [address] [place] [address] PCP - General Nurse Practitioner - [facility] 11/04/22 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 Start Date End Date Ami Stratton [address] [place] [phone] PCP - General Family Medicine 11/06/22 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 Start Date End Date Ami Stratton [address] [place] [phone] PCP - General Family Medicine 11/06/22 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 Start Date End Date Farhana Paez FNP [address] [place] [phone] PCP - General Nurse Practitioner - [facility] 11/04/22 Reason for Visit (unrecogniz ed section and content) Specialty Diagnoses / Procedures Referred By Shannon kirk Referred To Contact Diagnoses S/P lung transplant Encounter for aftercare following lung transplant Procedures XR CHEST PA AND LATERAL Carol Renee MD [address] [place] [address] Referral ID Status Reason Start Date Expiration Date V isits Requested Visits Authorized [id number] Pending Review 11/24/2020 12/19/2021 1 1 Specialty Diagnoses / Procedures Referred By Shannon kirk Referred To Contact Diagnoses S/P lung transplant Encounter for aftercare following lung transplant Procedures PFT STANDARD Carol Renee MD [address] [place] [address] Referral ID Status Reason Start Date Expiration Date V isits Requested Visits Authorized [id number] Pending Review 11/24/2020 12/19/2021 1 1 Reason Comments Follow-up S/p Lung Transplant Lung Recipient Follow-up Specialty Diagnoses / Procedures Referred By Contac t Referred To Contact Diagnoses S/P lung transplant Encounter for aftercare following lung transplant Procedures PFT STANDARD Ed Ortega, DO [address] [place] [address] Referral ID Status Reason Start Date Expiration Date V isits Requested Visits Authorized [id number] New Request 07/24/2021 08/18/2022 1 1 Specialty Diagnoses / Procedures Referred By Contac t Referred To Contact Diagnoses S/P lung transplant Encounter for aftercare following lung transplant Procedures XR CHEST PA AND LATERAL Ed Ortega, DO [address] [place] [address] Referral ID Status Reason Start Date Expiration Date V isits Requested Visits Authorized [id number] New Request 07/24/2021 08/18/2022 1 1 Referral ID Status Reason Start Date Expiration Date V isits Requested Visits Authorized [id number] New Request 09/25/2021 10/20/2022 1 1 Referral ID Status Reason Start Date Expiration Date V isits Requested Visits Authorized [id number] New Request 09/25/2021 10/20/2022 1 1 Referral ID Status Reason Start Date Expiration Date V isits Requested Visits Authorized [id number] New Request 02/10/2022 03/07/2023 1 1 Referral ID Status Reason Start Date Expiration Date V isits Requested Visits Authorized [id number] New Request 02/10/2022 03/07/2023 1 1 Specialty Diagnoses / Procedures Referred By Contac t Referred To Contact Diagnoses S/P lung transplant Encounter for aftercare following lung transplant Pulmonary emphysema, unspecified emphysema type Procedures CT CHEST WITHOUT CONTRAST CHG DIAGNOSTIC COMPUTED TOMOGRAPHY THORAX W/O CNTRST Ed Ortega, DO [address] [place] [address] Referral ID Status Reason Start Date Expiration Date V isits Requested Visits Authorized [id number] New Request 04/29/2022 05/24/2023 1 1 Specialty Diagnoses / Procedures Referred By Contac t Referred To Contact Diagnoses S/P lung transplant Encounter for aftercare following lung transplant Pulmonary emphysema, unspecified emphysema type Procedures PFT STANDARD Ed Ortega P, DO [address] [place] [address] Referral ID Status Reason Start Date Expiration Date V isits Requested Visits Authorized [id number] New Request 04/29/2022 05/24/2023 1 1 Specialty Diagnoses / Procedures Referred By Contac t Referred To Contact Diagnoses S/P lung transplant Encounter for aftercare following lung transplant Pulmonary emphysema, unspecified emphysema type Procedures ECHOCARDIOGRAM NV ECHO HEART XTHORACIC,COMPLETE W DOPPLER Ed Ortega, DO [address] [place] [address] Referral ID Status Reason Start Date Expiration Date V isits Requested Visits Authorized [id number] New Request 04/29/2022 05/24/2023 1 1 Specialty Diagnoses / Procedures Referred By Contac t Referred To Contact Diagnoses S/P lung transplant Encounter for aftercare following lung transplant Pulmonary emphysema, unspecified emphysema type Procedures EXERCISE-6 MIN. WALK Ed Ortega, DO [address] [place] [address] Referral ID Status Reason Start Date Expiration Date V isits Requested Visits Authorized [id number] New Request 04/29/2022 05/24/2023 1 1 Referral ID Status Reason Start Date Expiration Date V isits Requested Visits Authorized [id number] New Request 07/16/2022 08/10/2023 1 1 Referral ID Status Reason Start Date Expiration Date V isits Requested Visits Authorized [id number] New Request 07/16/2022 08/10/2023 1 1 Specialty Diagnoses / Procedures Referred By Contac t Referred To Contact Diagnoses Other intervertebral disc degeneration, lumbar region Other intervertebral disc degeneration, lumbar region [M51.36] Procedures NV ARTHRODESIS POSTERIOR/PSTLAT TQ 1NTRSPC LUMBAR NV POSTERIOR SEGMENTAL INSTRUMENTATION 3-6 VRT SEG NV ARTHRODESIS PST/PSTLAT TQ 1NTRSPC EA ADDL NTRSPC L2-S1 FUSION POSTERIOR Romulo Jaimes MD [address] [place] [address] [address] [place] [address] Referral ID Status Reason Start Date Expiration Date Visits Re quested Visits Authorized [id number] 1 Reason Onset Date Comments Post-op Follow-up 11/21/2022 Reason Comments Post-op po Reason Comments Post-op Sx 11/13 -- L2-S1 FU ANISA POSTERIOR Referral ID Status Reason Start Date Expiration Date V isits Requested Visits Authorized [id number] New Request 11/07/2022 12/02/2023 1 1 Referral ID Status Reason Start Date Expiration Date V isits Requested Visits Authorized [id number] New Request 11/07/2022 12/02/2023 1 1 Reason Comments Follow-up S/p Lung Transplant Reason Comments Follow-up xr Specialty Diagnoses / Procedures Referred By Contac t Referred To Contact Diagnoses S/P lung transplant Anginal equivalent Shortness of breath Encounter for aftercare following lung transplant Chest pain, unspecified type Procedures NUC MYOCARD PERF STRESS MIBI PHARM NV CHG MYOCARDIAL SPECT MULTIPLE STUDIES CHG MYOCARDIAL SPECT MULTIPLE STUDIES-T NV CARDIAC STRESS TST,INTERP/REPT ONLY NV CV STRS TST XERS&/OR RX CONT ECG W/O I&R Wilfredo Easley MD [address] [place] [address] Referral ID Status Reason Start Date Expiration Date V isits Requested Visits Authorized [id number] New Request 02/23/2023 03/19/2024 1 1 Care Team (unrecognized sect ion and content) Care Team Personnel Name: GUERRERO BATEMAN MD Member Role: Primary Care Physician Address: Address: [address] [place] [address] Care Team Related Persons Name: JOVANI ORTIZ Address: [address] [place], [place] [phone] [place] Care Team Personnel Name: GUERRERO BATEMAN MD Member Role: Primary Care Physician Address: Address: [facility] [place] [id number]- Care Team Related Persons Name: JOVANI ORTIZ Address: Home [address] [place], [place] [phone] [place] Care Team Personnel Name: GUERRERO BATEMAN MD Member Role: Primary Care Physician Address: Address: [facility] [address] [place] [id number]- Care Team Related Persons Name: JOVANI ORTIZ Address: Home [address] [place], [place] [phone] [place] Care Team Personnel Name: GUERRERO BATEMAN MD Member Role: Primary Care Physician Address: Address: [facility] [place] [address]- Care Team Related Persons Name: DIANA JOVANI Address: Home [address] [place], [place] [phone] [place] Care Team Personnel Name: GUERRERO BATEMAN MD Member Role: Primary Care Physician Address: Address: [facility] [address] [place] [id number]- Care Team Related Persons Name: JOVANI ORTIZ Address: Home [address] [place], [place] [id number] Care Team Personnel Name: GUERRERO BATEMAN MD Member Role: Primary Care Physician Address: Address: [facility] [address] [place] [id number]- Care Team Related Persons Name: DIANA JOVANI Address: Home [address] [place] [id number] (unrecognized sect ion and content) No Status Records FoundNo Status Records FoundNo Status Records Found INFORMATION SOURCE (unrecogn ized section and content) DATE CREATED AUTHOR AUTHOR'S ORGANIZ ATION 03/20/2023 [facility] DATE CREATED AUTHOR AUTHOR'S ORGANIZ ATION 04/24/2023 [facility] FOR RECORDS PERTAINING TO PATIENTS WHO ARE OR HAVE BEEN ENROLLED IN A CHEMICAL DEPENDENCY/SUBSTANCEABUSE PROGRAM, SOME INFORMATION MAY BE OMITTED. This clinical summary was aggregated from multiple sources. Caution should be exercised in using it in the provision of clinical care. This summary normalizes information from multiple sources, and as a consequence, information in this document may materially change the coding, format and clinical context of patient data. In addition, data may be omitted in some cases. CLINICAL DECISIONS SHOULD BE BASED ON THE PRIMARY CLINICAL RECORDS. [facility] [employer] [facility]. provides no warranty or guarantee of the accuracy or completeness of information in this document.
== END | disposition home or self-care (01) ==
PROVIDERS: PCP Nurse Practitioner Family; Referring Provider Internal Medicine; Visit Provider Internal Medicine
DX: M81.0 Age-related osteoporosis without current pathological fracture (principal); Z94.2 Lung transplant status; Z48.24 Encounter for aftercare following lung transplant; Z79.52 Long term (current) use of systemic steroids
CPT/HCPCS: 77081

== ENCOUNTER 2023-06-08 09:35 | Outpatient (RCR) | payer OTHER, SELFPAY ==
[2023-05-11 00:45] VITALS: BMI 31.6
[2023-05-12 11:39] LABS: Absolute Neutrophil Count 5.3 X10^3/uL (2.0-7.7); Basophil# 0.02 X10^3/uL; Basophil% 0.3 % (0-1); Eosinophil# 0.17 X10^3/uL; Eosinophils% 2.4 % (0-5); Hematocrit 41.8 % (40-54); Hemoglobin 12.6 g/dL (13.0-16.5); Lymphocyte % 15.3 % (19-41); Mean Corp Hgb Conc 30.1 g/dL (32-36); Mean Corpuscular Hgb 28.5 pg (27.0-32.0); Mean Corpuscular Volume 94.6 fL (80-94); Mean Platelet Vol. 9.2 fl (6.2-12.0); Monocyte# 0.56 X10^3/uL; Monocyte% 7.8 % (0-10); NRBC Flagged by Analyzer 0 % (0-5); Neutrophil # 5.34 X10^3/uL (2.7-7.7); Neutrophil % 73.9 % (47-70); Platelet Count 158 K/mm3 (150-450); RBC Distribution Width CV 13.5 % (11.6-14.6); RBC Distribution Width SD 46.7 fl (35.1-43.9); Red Blood Count 4.42 M/mm3 (4.6-6.2); White Blood Count 7.2 K/mm3 (4.4-11.0)
[2023-05-12 12:03] LABS: ALB/GLOB Ratio 1.2 RATIO (0.9-2.4); AST(SGOT) 9 U/L (15-37); Alanine Aminotransfer ALT/SGPT 18 U/L (16-61); Albumin, Serum 3.7 g/dL (3.2-5.0); Alkaline Phosphatase 63 U/L (45-117); Anion Gap 2 (5-15); BUN 29 mg/dL (7-18); BUN/Creat Ratio 17.5 RATIO (10-20); Bilirubin, Direct 0.07 mg/dL (0.00-0.30); Calcium,Total 10.1 mg/dL (8.5-10.1); Chloride 109 mmol/L (98-107); Creatinine, Serum 1.66 mg/dL (0.70-1.30); EST Glomerular Filtration Rate 43 mL/min (>60); Est Glom Filt Rate - Afr Amer 52 mL/min (>60); GGTP 17 U/L (15-85); Globulin 3.1 g/dL (2.2-4.2); Glucose 109 mg/dL (74-106); Magnesium 1.9 mg/dL (1.6-2.6); Phosphorus 2.7 mg/dL (2.5-4.9); Potassium 4.5 mmol/L (3.5-5.1); Protein, Total 6.8 g/dL (6.4-8.2); Sodium Level 139 mmol/L (136-145)
[2023-05-14 15:08] LABS: Tacrolimus (FK506) 5.9 ng/mL (2.0-20.0)
[2023-06-08 10:09] LABS: Absolute Lymphocyte Count 1.05 X10^3/uL (0.83-4.51); Absolute Neutrophil Count 4.1 X10^3/uL (2.0-7.7); Basophil# 0.01 X10^3/uL; Basophil% 0.2 % (0-1); Eosinophil# 0.14 X10^3/uL; Eosinophils% 2.5 % (0-5); Hematocrit 41.3 % (40-54); Hemoglobin 12.7 g/dL (13.0-16.5); Lymphocyte # 1.05 X10^3/ul (0.83-4.51); Lymphocyte % 18.4 % (19-41); Mean Corp Hgb Conc 30.8 g/dL (32-36); Mean Corpuscular Hgb 28.9 pg (27.0-32.0); Mean Corpuscular Volume 93.9 fL (80-94); Mean Platelet Vol. 9.7 fl (6.2-12.0); Monocyte# 0.43 X10^3/uL; Monocyte% 7.5 % (0-10); NRBC Flagged by Analyzer 0 % (0-5); Neutrophil # 4.06 X10^3/uL (2.7-7.7); Platelet Count 158 K/mm3 (150-450); RBC Distribution Width CV 13.3 % (11.6-14.6); RBC Distribution Width SD 45.4 fl (35.1-43.9); White Blood Count 5.7 K/mm3 (4.4-11.0)
[2023-06-08 10:27] LABS: ALB/GLOB Ratio 1.2 RATIO (0.9-2.4); AST(SGOT) 11 U/L (15-37); Alanine Aminotransfer ALT/SGPT 18 U/L (16-61); Albumin, Serum 3.8 g/dL (3.2-5.0); Alkaline Phosphatase 61 U/L (45-117); Anion Gap 4 (5-15); BUN 27 mg/dL (7-18); BUN/Creat Ratio 18.9 RATIO (10-20); Bilirubin, Direct 0.11 mg/dL (0.00-0.30); Calcium,Total 9.8 mg/dL (8.5-10.1); Chloride 113 mmol/L (98-107); Creatinine, Serum 1.43 mg/dL (0.70-1.30); EST Glomerular Filtration Rate 51 mL/min (>60); Est Glom Filt Rate - Afr Amer 62 mL/min (>60); GGTP 13 U/L (15-85); Globulin 3.1 g/dL (2.2-4.2); Glucose 103 mg/dL (74-106); Magnesium 2.1 mg/dL (1.6-2.6); Phosphorus 2.6 mg/dL (2.5-4.9); Potassium 4.3 mmol/L (3.5-5.1); Protein, Total 6.9 g/dL (6.4-8.2); Sodium Level 141 mmol/L (136-145)
[2023-06-10 10:09] LABS: Tacrolimus (FK506) 4.6 ng/mL (2.0-20.0)
== END 2023-06-10 23:59 ==
LOC: PAVLAB 09:35
PROVIDERS: PCP Nurse Practitioner Family
DX: D84.9 Immunodeficiency, unspecified (principal); R79.9 Abnormal finding of blood chemistry, unspecified; Z94.2 Lung transplant status; Z51.81 Encounter for therapeutic drug level monitoring; Z79.899 Other long term (current) drug therapy
CPT/HCPCS: 36415; 80053; 80197; 82248; 82977; 83735; 84100; 85025

== ENCOUNTER → 2023-06-30 | Outpatient (CLI) | payer OTHER, SELFPAY | END | disposition home or self-care (01) | PROVIDERS: PCP Nurse Practitioner Family; Referring Provider Internal Medicine; Visit Provider Internal Medicine | DX: Z94.2 Lung transplant status (principal); Z48.24 Encounter for aftercare following lung transplant | CPT/HCPCS: 94010 ==

== ENCOUNTER 2023-07-06 09:01 | Outpatient (RCR) | payer OTHER, SELFPAY ==
[2023-06-11 00:55] VITALS: BMI 31.6
[2023-07-06 09:18] LABS: Absolute Lymphocyte Count 1.14 X10^3/uL (0.83-4.51); Absolute Neutrophil Count 3.5 X10^3/uL (2.0-7.7); Basophil# 0.03 X10^3/uL; Basophil% 0.6 % (0-1); Eosinophil# 0.09 X10^3/uL; Eosinophils% 1.7 % (0-5); Hematocrit 42.1 % (40-54); Hemoglobin 12.9 g/dL (13.0-16.5); Lymphocyte # 1.14 X10^3/ul (0.83-4.51); Lymphocyte % 21.8 % (19-41); Mean Corp Hgb Conc 30.6 g/dL (32-36); Mean Corpuscular Hgb 28.9 pg (27.0-32.0); Mean Corpuscular Volume 94.2 fL (80-94); Mean Platelet Vol. 9.4 fl (6.2-12.0); Monocyte# 0.45 X10^3/uL; Monocyte% 8.6 % (0-10); NRBC Flagged by Analyzer 0 % (0-5); Neutrophil # 3.46 X10^3/uL (2.7-7.7); Neutrophil % 66.3 % (47-70); Platelet Count 153 K/mm3 (150-450); RBC Distribution Width CV 13.1 % (11.6-14.6); RBC Distribution Width SD 45.1 fl (35.1-43.9); Red Blood Count 4.47 M/mm3 (4.6-6.2); White Blood Count 5.2 K/mm3 (4.4-11.0)
[2023-07-06 09:35] LABS: ALB/GLOB Ratio 1.4 RATIO (0.9-2.4); AST(SGOT) 13 U/L (15-37); Alanine Aminotransfer ALT/SGPT 13 U/L (16-61); Albumin, Serum 3.9 g/dL (3.2-5.0); Alkaline Phosphatase 68 U/L (45-117); Anion Gap 3 (5-15); BUN 26 mg/dL (7-18); BUN/Creat Ratio 17.9 RATIO (10-20); Bilirubin, Direct 0.08 mg/dL (0.00-0.30); Calcium,Total 10.1 mg/dL (8.5-10.1); Chloride 112 mmol/L (98-107); Creatinine, Serum 1.45 mg/dL (0.70-1.30); EST Glomerular Filtration Rate 50 mL/min (>60); Est Glom Filt Rate - Afr Amer 61 mL/min (>60); GGTP 17 U/L (15-85); Globulin 2.8 g/dL (2.2-4.2); Glucose 106 mg/dL (74-106); Magnesium 1.9 mg/dL (1.6-2.6); Phosphorus 2.8 mg/dL (2.5-4.9); Potassium 4.2 mmol/L (3.5-5.1); Protein, Total 6.7 g/dL (6.4-8.2); Sodium Level 140 mmol/L (136-145)
[2023-07-09 11:09] LABS: Tacrolimus (FK506) 6.3 ng/mL (2.0-20.0)
== END 2023-07-09 23:59 ==
LOC: PAVLAB 09:01
PROVIDERS: PCP Nurse Practitioner Family
DX: R79.9 Abnormal finding of blood chemistry, unspecified; Z94.2 Lung transplant status; Z51.81 Encounter for therapeutic drug level monitoring; Z79.899 Other long term (current) drug therapy; D80.1 Nonfamilial hypogammaglobulinemia; E78.5 Hyperlipidemia, unspecified
CPT/HCPCS: 36415; 80053; 80197; 82248; 82977; 83735; 84100; 85025

== ENCOUNTER 2023-08-03 10:40 | Outpatient (RCR) | payer OTHER, SELFPAY ==
[2023-07-10 00:38] VITALS: BMI 31.6
[2023-08-03 11:10] LABS: Absolute Lymphocyte Count 1.09 X10^3/uL (0.83-4.51); Absolute Neutrophil Count 4.5 X10^3/uL (2.0-7.7); Basophil# 0.03 X10^3/uL; Basophil% 0.5 % (0-1); Eosinophil# 0.11 X10^3/uL; Eosinophils% 1.7 % (0-5); Hematocrit 41.9 % (40-54); Hemoglobin 12.6 g/dL (13.0-16.5); Lymphocyte # 1.09 X10^3/ul (0.83-4.51); Lymphocyte % 17.3 % (19-41); Mean Corp Hgb Conc 30.1 g/dL (32-36); Mean Corpuscular Hgb 28.3 pg (27.0-32.0); Mean Corpuscular Volume 94.2 fL (80-94); Mean Platelet Vol. 9.5 fl (6.2-12.0); Monocyte# 0.58 X10^3/uL; Monocyte% 9.2 % (0-10); NRBC Flagged by Analyzer 0 % (0-5); Neutrophil # 4.45 X10^3/uL (2.7-7.7); Neutrophil % 70.7 % (47-70); Platelet Count 169 K/mm3 (150-450); RBC Distribution Width CV 13.2 % (11.6-14.6); RBC Distribution Width SD 45.7 fl (35.1-43.9); Red Blood Count 4.45 M/mm3 (4.6-6.2); White Blood Count 6.3 K/mm3 (4.4-11.0)
[2023-08-03 11:29] LABS: ALB/GLOB Ratio 1.3 RATIO (0.9-2.4); AST(SGOT) 11 U/L (15-37); Alanine Aminotransfer ALT/SGPT 16 U/L (16-61); Alkaline Phosphatase 61 U/L (45-117); Anion Gap 5 (5-15); BUN 30 mg/dL (7-18); BUN/Creat Ratio 19.5 RATIO (10-20); Calcium,Total 9.8 mg/dL (8.5-10.1); Chloride 111 mmol/L (98-107); Cholesterol 209 mg/dL (200); Creatinine, Serum 1.54 mg/dL (0.70-1.30); EST Glomerular Filtration Rate 47 mL/min (>60); Est Glom Filt Rate - Afr Amer 57 mL/min (>60); GGTP 13 U/L (15-85); Glucose 101 mg/dL (74-106); High Density Lipoprotein 46 mg/dL; Phosphorus 2.3 mg/dL (2.5-4.9); Potassium 4.4 mmol/L (3.5-5.1); Sodium Level 141 mmol/L (136-145); Triglycerides 217 mg/dL; Very Low Density Lipoprotein 43 mg/dL (5-40)
[2023-08-03 11:49] LABS: Hemoglobin A1c 5.2 % (3.8-5.6)
[2023-08-05 14:10] LABS: Tacrolimus (FK506) 4.8 ng/mL (2.0-20.0)
== END 2023-08-09 23:59 ==
LOC: PAVLAB 10:40
PROVIDERS: PCP Nurse Practitioner Family
DX: D84.9 Immunodeficiency, unspecified (principal); R79.9 Abnormal finding of blood chemistry, unspecified; Z94.2 Lung transplant status; Z51.81 Encounter for therapeutic drug level monitoring; Z79.899 Other long term (current) drug therapy; D80.1 Nonfamilial hypogammaglobulinemia; E78.5 Hyperlipidemia, unspecified; E78.2 Mixed hyperlipidemia
CPT/HCPCS: 36415; 80053; 80061; 80197; 82977; 83036; 83735; 84100; 85025; 87497

== ENCOUNTER → 2023-08-04 | Outpatient (CLI) | payer MEDICARE, BC, SELFPAY | END | disposition home or self-care (01) | PROVIDERS: PCP Nurse Practitioner Family; Referring Provider Internal Medicine; Visit Provider Internal Medicine | DX: Z94.2 Lung transplant status (principal); Z48.24 Encounter for aftercare following lung transplant | CPT/HCPCS: 94010 ==

== ENCOUNTER → 2023-08-11 | Outpatient (CLI) | payer BC, MEDICARE, SELFPAY ==
--- NOTE | 2023-08-11 17:11 | CT_ITS ---
STUDY: LOW DOSE CT LUNG CANCER SCREENING REASON FOR EXAM: Male, 73 years old. and gt;40 pack years quit 2016 RADIATION DOSAGE (If Supplied By Facility): CTDIvol = ( 4.02 ) mGy, DLP = ( 145.97 ) mGycm TECHNIQUE: No contrast was administered. Low dose technique was utilized (average mAS-38 and kVp 120). 1.25 mm axial source images with a slice interval of 1.25-mm were reconstructed in lung windows. 2.5 mm axial source images with a slice interval of 2.5-mm were reconstructed in lung windows. 5.0 mm axial source images with a slice interval of 5.0-mm were reconstructed in soft tissue windows. COMPARISON: Comparison is made with prior examination dated September 27, 2021 and October 15, 2018. NODULES: No suspicious nodules are seen. Emphysema: Hyperinflation of the right hemithorax with rib changes compatible with the emphysema. Bullous formation seen in the right infrahilar region. Scarring is seen in the lateral aspect of the right upper lobe. Endobronchial lesion: None. Surgical clips are seen in the left parahilar region. Patient has a history of a prior left lung transplant surgery. Aorta: Atherosclerotic plaque formation of the aortic arch. CORONARY ARTERIES: Coronary artery calcification is seen. Prior CABG. Heart: Unremarkable Pulmonary artery: Unremarkable Mediastinal nodes: Unremarkable Other chest and abdominal findings: CT/Low Dose CT Lung Screening IMPRESSION: Lung-RADS category 2 - Continue annual screening with LDCT in 12 months. IMPORTANT NOTES FOR USE: ACR Lung-RADS Version 1.1 Assessment Categories Release Date: 2018 Category: Coded 0-4 bases on nodule(s) with highest degree of suspicion. Negative screen is defined as categories 1 and 2; a positive screen is defined as categories 3 and 4. Category 3 and 4A nodules that are unchanged on interval CT should be coded as category 2, and individuals returned to screening in 12 months. Category 4X: Category 3 or 4 nodules with additional imaging findings that increase the suspicion of lung cancer, such as spiculation, GGN that doubles in size in 1 year, enlarged lymph notes, etc. Category Modifiers: S (significant finding unrelated to lung cancer) Electronically Signed: Brad Yi MD at 8:51 EDT ,
== END | disposition home or self-care (01) ==
LOC: CT 17:12
PROVIDERS: PCP Nurse Practitioner Family; Referring Provider Nurse Practitioner Acute Care; Visit Provider Nurse Practitioner Acute Care
DX: Z12.2 Encounter for screening for malignant neoplasm of respiratory organs (principal); Z87.891 Personal history of nicotine dependence
CPT/HCPCS: 71271

== ENCOUNTER 2023-08-31 13:08 | Outpatient (RCR) | payer OTHER, SELFPAY ==
[2023-08-10 00:48] VITALS: BMI 31.6
[2023-08-31 13:34] LABS: Absolute Lymphocyte Count 0.63 X10^3/uL (0.83-4.51); Absolute Neutrophil Count 4.5 X10^3/uL (2.0-7.7); Basophil# 0.03 X10^3/uL; Basophil% 0.5 % (0-1); Eosinophil# 0.13 X10^3/uL; Eosinophils% 2.3 % (0-5); Hematocrit 39.4 % (40-54); Hemoglobin 12.5 g/dL (13.0-16.5); Lymphocyte # 0.63 X10^3/ul (0.83-4.51); Lymphocyte % 11.2 % (19-41); Mean Corp Hgb Conc 31.7 g/dL (32-36); Mean Corpuscular Hgb 29.6 pg (27.0-32.0); Mean Corpuscular Volume 93.1 fL (80-94); Mean Platelet Vol. 9.2 fl (6.2-12.0); Monocyte# 0.37 X10^3/uL; Monocyte% 6.6 % (0-10); NRBC Flagged by Analyzer 0 % (0-5); Neutrophil # 4.47 X10^3/uL (2.7-7.7); Neutrophil % 79.2 % (47-70); Platelet Count 158 K/mm3 (150-450); RBC Distribution Width CV 13.2 % (11.6-14.6); RBC Distribution Width SD 44.5 fl (35.1-43.9); Red Blood Count 4.23 M/mm3 (4.6-6.2); White Blood Count 5.6 K/mm3 (4.4-11.0)
[2023-08-31 13:48] LABS: ALB/GLOB Ratio 1.4 RATIO (0.9-2.4); AST(SGOT) 11 U/L (15-37); Alanine Aminotransfer ALT/SGPT 16 U/L (16-61); Alkaline Phosphatase 63 U/L (45-117); Anion Gap 4 (5-15); BUN 28 mg/dL (7-18); BUN/Creat Ratio 19.2 RATIO (10-20); Calcium,Total 9.7 mg/dL (8.5-10.1); Chloride 108 mmol/L (98-107); Creatinine, Serum 1.46 mg/dL (0.70-1.30); EST Glomerular Filtration Rate 50 mL/min (>60); Est Glom Filt Rate - Afr Amer 61 mL/min (>60); GGTP 13 U/L (15-85); Globulin 2.8 g/dL (2.2-4.2); Glucose 105 mg/dL (74-106); Magnesium 1.9 mg/dL (1.6-2.6); Phosphorus 2.4 mg/dL (2.5-4.9); Potassium 4.6 mmol/L (3.5-5.1); Protein, Total 6.8 g/dL (6.4-8.2); Sodium Level 140 mmol/L (136-145)
[2023-09-04 01:07] LABS: Tacrolimus (FK506) 4.5 ng/mL (2.0-20.0)
== END 2023-09-08 23:59 ==
LOC: PAVLAB 13:08
PROVIDERS: Internal Medicine; PCP Nurse Practitioner Family
DX: D84.9 Immunodeficiency, unspecified (principal); R79.9 Abnormal finding of blood chemistry, unspecified; Z94.2 Lung transplant status; Z51.81 Encounter for therapeutic drug level monitoring; Z79.899 Other long term (current) drug therapy; D80.1 Nonfamilial hypogammaglobulinemia; E78.5 Hyperlipidemia, unspecified
CPT/HCPCS: 36415; 80053; 80197; 82248; 82977; 83735; 84100; 85025

== ENCOUNTER → 2023-09-01 | Outpatient (CLI) | payer OTHER, SELFPAY | END | disposition home or self-care (01) | PROVIDERS: PCP Nurse Practitioner Family; Referring Provider Internal Medicine; Visit Provider Internal Medicine | DX: Z48.24 Encounter for aftercare following lung transplant (principal); Z94.2 Lung transplant status | CPT/HCPCS: 94010 ==

== ENCOUNTER 2023-09-28 08:56 | Outpatient (RCR) | payer OTHER, SELFPAY ==
[2023-09-09 00:50] VITALS: BMI 31.6
[2023-09-28 09:20] LABS: Absolute Lymphocyte Count 1.03 X10^3/uL (0.83-4.51); Absolute Neutrophil Count 3.2 X10^3/uL (2.0-7.7); Basophil# 0.02 X10^3/uL; Basophil% 0.4 % (0-1); Eosinophil# 0.14 X10^3/uL; Eosinophils% 2.8 % (0-5); Hematocrit 41.6 % (40-54); Hemoglobin 12.6 g/dL (13.0-16.5); Lymphocyte # 1.03 X10^3/ul (0.83-4.51); Lymphocyte % 20.8 % (19-41); Mean Corp Hgb Conc 30.3 g/dL (32-36); Mean Corpuscular Hgb 28.8 pg (27.0-32.0); Mean Corpuscular Volume 95.2 fL (80-94); Mean Platelet Vol. 9.6 fl (6.2-12.0); Monocyte# 0.51 X10^3/uL; Monocyte% 10.3 % (0-10); NRBC Flagged by Analyzer 0 % (0-5); Neutrophil # 3.23 X10^3/uL (2.7-7.7); Neutrophil % 65.3 % (47-70); Platelet Count 185 K/mm3 (150-450); RBC Distribution Width CV 13.2 % (11.6-14.6); RBC Distribution Width SD 46.1 fl (35.1-43.9); Red Blood Count 4.37 M/mm3 (4.6-6.2)
[2023-09-28 09:29] LABS: ALB/GLOB Ratio 1.4 RATIO (0.9-2.4); AST(SGOT) 15 U/L (15-37); Alanine Aminotransfer ALT/SGPT 17 U/L (16-61); Alkaline Phosphatase 59 U/L (45-117); Anion Gap 2 (5-15); BUN 33 mg/dL (7-18); BUN/Creat Ratio 22.3 RATIO (10-20); Bilirubin, Direct 0.11 mg/dL (0.00-0.30); Calcium,Total 10.1 mg/dL (8.5-10.1); Chloride 109 mmol/L (98-107); Creatinine, Serum 1.48 mg/dL (0.70-1.30); EST Glomerular Filtration Rate 49 mL/min (>60); Est Glom Filt Rate - Afr Amer 60 mL/min (>60); GGTP 18 U/L (15-85); Globulin 2.9 g/dL (2.2-4.2); Glucose 98 mg/dL (74-106); Magnesium 1.8 mg/dL (1.6-2.6); Phosphorus 2.5 mg/dL (2.5-4.9); Potassium 4.5 mmol/L (3.5-5.1); Protein, Total 6.9 g/dL (6.4-8.2); Sodium Level 138 mmol/L (136-145)
[2023-10-02 14:09] LABS: Tacrolimus (FK506) 6.2 ng/mL (2.0-20.0)
== END 2023-10-09 23:59 ==
LOC: PAVLAB 08:56
PROVIDERS: PCP Nurse Practitioner Family
DX: D84.9 Immunodeficiency, unspecified (principal); R79.9 Abnormal finding of blood chemistry, unspecified; Z94.2 Lung transplant status; Z51.81 Encounter for therapeutic drug level monitoring; Z79.899 Other long term (current) drug therapy
CPT/HCPCS: 36415; 80053; 80197; 82248; 82977; 83735; 84100; 85025

== ENCOUNTER → 2023-10-01 | Outpatient (CLI) | payer MEDICARE, BC, SELFPAY | END | disposition home or self-care (01) | LOC: PSN 10:27 | PROVIDERS: PCP Nurse Practitioner Family; Referring Provider Internal Medicine; Visit Provider Internal Medicine | DX: Z94.2 Lung transplant status (principal); Z48.24 Encounter for aftercare following lung transplant | CPT/HCPCS: 94010 ==

== ENCOUNTER 2023-10-26 08:33 | Outpatient (RCR) | payer OTHER, SELFPAY ==
[2023-10-10 02:24] VITALS: BMI 31.6
[2023-10-26 09:01] LABS: Absolute Lymphocyte Count 1.01 X10^3/uL (0.83-4.51); Absolute Neutrophil Count 4.5 X10^3/uL (2.0-7.7); Basophil# 0.03 X10^3/uL; Basophil% 0.5 % (0-1); Eosinophils% 1.6 % (0-5); Hematocrit 39.6 % (40-54); Hemoglobin 12.1 g/dL (13.0-16.5); Lymphocyte # 1.01 X10^3/ul (0.83-4.51); Lymphocyte % 16.5 % (19-41); Mean Corp Hgb Conc 30.6 g/dL (32-36); Mean Corpuscular Hgb 29.3 pg (27.0-32.0); Mean Corpuscular Volume 95.9 fL (80-94); Mean Platelet Vol. 9.7 fl (6.2-12.0); Monocyte# 0.49 X10^3/uL; NRBC Flagged by Analyzer 0 % (0-5); Neutrophil # 4.47 X10^3/uL (2.7-7.7); Neutrophil % 73.2 % (47-70); Platelet Count 175 K/mm3 (150-450); RBC Distribution Width CV 13.2 % (11.6-14.6); RBC Distribution Width SD 46.6 fl (35.1-43.9); Red Blood Count 4.13 M/mm3 (4.6-6.2); White Blood Count 6.1 K/mm3 (4.4-11.0)
[2023-10-26 09:34] LABS: ALB/GLOB Ratio 1.3 RATIO (0.9-2.4); AST(SGOT) 12 U/L (15-37); Alanine Aminotransfer ALT/SGPT 15 U/L (16-61); Albumin, Serum 3.7 g/dL (3.2-5.0); Alkaline Phosphatase 80 U/L (45-117); Anion Gap 5 (5-15); BUN 28 mg/dL (7-18); BUN/Creat Ratio 23.3 RATIO (10-20); Bilirubin, Direct 0.06 mg/dL (0.00-0.30); Calcium,Total 9.4 mg/dL (8.5-10.1); Chloride 112 mmol/L (98-107); EST Glomerular Filtration Rate 63 mL/min (>60); Est Glom Filt Rate - Afr Amer 76 mL/min (>60); GGTP 14 U/L (15-85); Globulin 2.9 g/dL (2.2-4.2); Glucose 104 mg/dL (74-106); Magnesium 1.8 mg/dL (1.6-2.6); Phosphorus 2.7 mg/dL (2.5-4.9); Potassium 4.5 mmol/L (3.5-5.1); Protein, Total 6.6 g/dL (6.4-8.2); Sodium Level 141 mmol/L (136-145)
[2023-10-26 12:50] LABS: Hemoglobin A1c 5.2 % (3.8-5.6)
[2023-10-28 15:08] LABS: Immunoglobulin A 152 mg/dL (61-437); Immunoglobulin G 385 mg/dL (603-1613); Immunoglobulin M 33 mg/dL (15-143); Tacrolimus (FK506) 3.8 ng/mL (2.0-20.0)
== END 2023-11-08 23:59 ==
LOC: PAVLAB 08:33
PROVIDERS: Internal Medicine; PCP Nurse Practitioner Family
DX: D84.9 Immunodeficiency, unspecified (principal); R79.9 Abnormal finding of blood chemistry, unspecified; Z94.2 Lung transplant status; Z51.81 Encounter for therapeutic drug level monitoring; Z79.899 Other long term (current) drug therapy; D80.1 Nonfamilial hypogammaglobulinemia; E78.5 Hyperlipidemia, unspecified
CPT/HCPCS: 36415; 80053; 80197; 82248; 82784; 82977; 83036; 83735; 84100; 85025; 87497

== ENCOUNTER → 2023-11-03 | Outpatient (CLI) | payer OTHER, SELFPAY | END | disposition home or self-care (01) | PROVIDERS: PCP Nurse Practitioner Family; Visit Provider Internal Medicine | DX: Z94.2 Lung transplant status (principal); Z48.24 Encounter for aftercare following lung transplant | CPT/HCPCS: 94010 ==

== ENCOUNTER 2023-11-23 10:43 | Outpatient (RCR) | payer OTHER, SELFPAY ==
[2023-11-09 00:22] VITALS: BMI 31.6
[2023-11-23 11:15] LABS: Absolute Lymphocyte Count 1.04 X10^3/uL (0.83-4.51); Absolute Neutrophil Count 4.1 X10^3/uL (2.0-7.7); Basophil# 0.02 X10^3/uL; Basophil% 0.3 % (0-1); Eosinophil# 0.08 X10^3/uL; Eosinophils% 1.4 % (0-5); Hematocrit 40.1 % (40-54); Hemoglobin 12.1 g/dL (13.0-16.5); Lymphocyte # 1.04 X10^3/ul (0.83-4.51); Lymphocyte % 18.1 % (19-41); Mean Corp Hgb Conc 30.2 g/dL (32-36); Mean Corpuscular Hgb 28.7 pg (27.0-32.0); Mean Corpuscular Volume 95.2 fL (80-94); Mean Platelet Vol. 9.7 fl (6.2-12.0); Monocyte# 0.52 X10^3/uL; NRBC Flagged by Analyzer 0 % (0-5); Neutrophil # 4.07 X10^3/uL (2.7-7.7); Neutrophil % 70.7 % (47-70); Platelet Count 160 K/mm3 (150-450); RBC Distribution Width CV 13.4 % (11.6-14.6); Red Blood Count 4.21 M/mm3 (4.6-6.2); White Blood Count 5.8 K/mm3 (4.4-11.0)
[2023-11-23 11:28] LABS: ALB/GLOB Ratio 1.3 RATIO (0.9-2.4); AST(SGOT) 10 U/L (15-37); Alanine Aminotransfer ALT/SGPT 16 U/L (16-61); Albumin, Serum 3.8 g/dL (3.2-5.0); Alkaline Phosphatase 77 U/L (45-117); Anion Gap 8 (5-15); BUN 35 mg/dL (7-18); BUN/Creat Ratio 27.1 RATIO (10-20); Bilirubin, Direct 0.08 mg/dL (0.00-0.30); Calcium,Total 9.5 mg/dL (8.5-10.1); Chloride 107 mmol/L (98-107); Creatinine, Serum 1.29 mg/dL (0.70-1.30); EST Glomerular Filtration Rate 58 mL/min (>60); Est Glom Filt Rate - Afr Amer 70 mL/min (>60); Globulin 2.9 g/dL (2.2-4.2); Glucose 101 mg/dL (74-106); Magnesium 1.9 mg/dL (1.6-2.6); Phosphorus 2.2 mg/dL (2.5-4.9); Potassium 5.1 mmol/L (3.5-5.1); Protein, Total 6.7 g/dL (6.4-8.2); Sodium Level 140 mmol/L (136-145)
[2023-11-25 07:08] LABS: GGTP 10 IU/L (0-65); Tacrolimus (FK506) 5.1 ng/mL (2.0-20.0)
== END 2023-12-09 23:59 ==
LOC: PAVLAB 10:43
PROVIDERS: PCP Nurse Practitioner Family
DX: D84.9 Immunodeficiency, unspecified (principal); R79.9 Abnormal finding of blood chemistry, unspecified; Z94.2 Lung transplant status; Z51.81 Encounter for therapeutic drug level monitoring; Z79.899 Other long term (current) drug therapy; D80.1 Nonfamilial hypogammaglobulinemia; E78.5 Hyperlipidemia, unspecified
CPT/HCPCS: 80053; 80197; 82248; 82977; 83735; 84100; 85025

== ENCOUNTER → 2023-11-23 | Outpatient (CLI) | payer MEDICARE, BC, SELFPAY ==
[2023-11-23 11:30] LABS: PSA,Total - Annual Screen 1.75 ng/mL (0.00-4.00)
== END | disposition home or self-care (01) ==
LOC: PAVLAB 10:47
PROVIDERS: PCP Nurse Practitioner Family; Referring Provider Nurse Practitioner Family; Visit Provider Nurse Practitioner Family
DX: Z12.5 Encounter for screening for malignant neoplasm of prostate (principal)
CPT/HCPCS: 36415; 84153; G0103

== ENCOUNTER 2023-12-22 09:32 | Outpatient (RCR) | payer OTHER, SELFPAY ==
[2023-12-10 00:13] VITALS: BMI 31.6
[2023-12-22 09:54] LABS: Absolute Lymphocyte Count 1.07 X10^3/uL (0.83-4.51); Absolute Neutrophil Count 4.2 X10^3/uL (2.0-7.7); Basophil# 0.03 X10^3/uL; Basophil% 0.5 % (0-1); Eosinophil# 0.12 X10^3/uL; Hematocrit 42.1 % (40-54); Hemoglobin 12.6 g/dL (13.0-16.5); Lymphocyte # 1.07 X10^3/ul (0.83-4.51); Lymphocyte % 18.1 % (19-41); Mean Corp Hgb Conc 29.9 g/dL (32-36); Mean Corpuscular Hgb 28.6 pg (27.0-32.0); Mean Corpuscular Volume 95.5 fL (80-94); Mean Platelet Vol. 9.6 fl (6.2-12.0); Monocyte# 0.51 X10^3/uL; Monocyte% 8.6 % (0-10); NRBC Flagged by Analyzer 0 % (0-5); Neutrophil # 4.15 X10^3/uL (2.7-7.7); Neutrophil % 70.3 % (47-70); Platelet Count 160 K/mm3 (150-450); RBC Distribution Width CV 13.2 % (11.6-14.6); RBC Distribution Width SD 46.1 fl (35.1-43.9); Red Blood Count 4.41 M/mm3 (4.6-6.2); White Blood Count 5.9 K/mm3 (4.4-11.0)
[2023-12-22 10:26] LABS: ALB/GLOB Ratio 1.3 RATIO (0.9-2.4); AST(SGOT) 15 U/L (15-37); Alanine Aminotransfer ALT/SGPT 16 U/L (16-61); Albumin, Serum 3.7 g/dL (3.2-5.0); Alkaline Phosphatase 77 U/L (45-117); Anion Gap 3 (5-15); BUN 25 mg/dL (7-18); BUN/Creat Ratio 17.7 RATIO (10-20); Bilirubin, Direct 0.09 mg/dL (0.00-0.30); Calcium,Total 9.7 mg/dL (8.5-10.1); Chloride 109 mmol/L (98-107); Creatinine, Serum 1.41 mg/dL (0.70-1.30); EST Glomerular Filtration Rate 52 mL/min (>60); Est Glom Filt Rate - Afr Amer 63 mL/min (>60); Globulin 2.9 g/dL (2.2-4.2); Glucose 100 mg/dL (74-106); Magnesium 1.9 mg/dL (1.6-2.6); Phosphorus 2.8 mg/dL (2.5-4.9); Potassium 4.6 mmol/L (3.5-5.1); Protein, Total 6.6 g/dL (6.4-8.2); Sodium Level 140 mmol/L (136-145)
[2023-12-25 18:08] LABS: GGTP 10 IU/L (0-65); Tacrolimus (FK506) 2.7 ng/mL (2.0-20.0)
== END 2024-01-09 23:59 ==
LOC: PAVLAB 09:32
PROVIDERS: PCP Nurse Practitioner Family
DX: D84.9 Immunodeficiency, unspecified (principal); R79.9 Abnormal finding of blood chemistry, unspecified; Z94.2 Lung transplant status; Z51.81 Encounter for therapeutic drug level monitoring; Z79.899 Other long term (current) drug therapy; D80.1 Nonfamilial hypogammaglobulinemia; E78.5 Hyperlipidemia, unspecified
CPT/HCPCS: 36415; 80053; 80197; 82248; 82977; 83735; 84100; 85025

== ENCOUNTER → 2023-12-30 | Outpatient (CLI) | payer OTHER, SELFPAY | END | disposition home or self-care (01) | LOC: PSN 10:21 | PROVIDERS: PCP Nurse Practitioner Family; Referring Provider Internal Medicine; Visit Provider Internal Medicine | DX: Z94.2 Lung transplant status (principal); Z48.24 Encounter for aftercare following lung transplant | CPT/HCPCS: 94010 ==

== ENCOUNTER 2024-01-18 10:57 | Outpatient (RCR) | payer OTHER, SELFPAY ==
[2024-01-10 00:14] VITALS: BMI 31.6
[2024-01-18 11:21] LABS: Absolute Lymphocyte Count 1.09 X10^3/uL (0.83-4.51); Absolute Neutrophil Count 4.1 X10^3/uL (2.0-7.7); Basophil# 0.03 X10^3/uL; Basophil% 0.5 % (0-1); Eosinophil# 0.16 X10^3/uL; Eosinophils% 2.7 % (0-5); Hematocrit 42.1 % (40-54); Hemoglobin 12.6 g/dL (13.0-16.5); Lymphocyte # 1.09 X10^3/ul (0.83-4.51); Lymphocyte % 18.2 % (19-41); Mean Corp Hgb Conc 29.9 g/dL (32-36); Mean Corpuscular Hgb 28.7 pg (27.0-32.0); Mean Corpuscular Volume 95.9 fL (80-94); Mean Platelet Vol. 9.6 fl (6.2-12.0); Monocyte# 0.58 X10^3/uL; Monocyte% 9.7 % (0-10); NRBC Flagged by Analyzer 0 % (0-5); Neutrophil # 4.09 X10^3/uL (2.7-7.7); Neutrophil % 68.2 % (47-70); Platelet Count 149 K/mm3 (150-450); RBC Distribution Width SD 46.2 fl (35.1-43.9); Red Blood Count 4.39 M/mm3 (4.6-6.2)
[2024-01-18 11:41] LABS: ALB/GLOB Ratio 1.1 RATIO (0.9-2.4); AST(SGOT) 10 U/L (15-37); Alanine Aminotransfer ALT/SGPT 19 U/L (16-61); Albumin, Serum 3.6 g/dL (3.2-5.0); Alkaline Phosphatase 102 U/L (45-117); Anion Gap 8 (5-15); BUN 29 mg/dL (7-18); Bilirubin, Direct 0.09 mg/dL (0.00-0.30); Calcium,Total 9.5 mg/dL (8.5-10.1); Chloride 108 mmol/L (98-107); Creatinine, Serum 1.26 mg/dL (0.70-1.30); EST Glomerular Filtration Rate 59 mL/min (>60); Est Glom Filt Rate - Afr Amer 72 mL/min (>60); Globulin 3.3 g/dL (2.2-4.2); Glucose 93 mg/dL (74-106); Magnesium 1.8 mg/dL (1.6-2.6); Phosphorus 2.9 mg/dL (2.5-4.9); Potassium 4.5 mmol/L (3.5-5.1); Protein, Total 6.9 g/dL (6.4-8.2); Sodium Level 141 mmol/L (136-145)
[2024-01-21 03:07] LABS: GGTP 14 IU/L (0-65); Tacrolimus (FK506) 4.3 ng/mL (2.0-20.0)
== END 2024-02-08 23:59 ==
LOC: PAVLAB 10:57
PROVIDERS: Internal Medicine; PCP Nurse Practitioner Family
DX: D84.9 Immunodeficiency, unspecified (principal); R79.9 Abnormal finding of blood chemistry, unspecified; Z94.2 Lung transplant status; Z51.81 Encounter for therapeutic drug level monitoring; Z79.899 Other long term (current) drug therapy; D80.1 Nonfamilial hypogammaglobulinemia; E78.5 Hyperlipidemia, unspecified
CPT/HCPCS: 36415; 80053; 80197; 82248; 82977; 83735; 84100; 85025

== ENCOUNTER → 2024-02-02 | Outpatient (CLI) | payer OTHER, SELFPAY | END | disposition home or self-care (01) | LOC: PSN 10:25 | PROVIDERS: PCP Nurse Practitioner Family; Referring Provider Internal Medicine; Visit Provider Internal Medicine | DX: Z48.24 Encounter for aftercare following lung transplant (principal); Z94.2 Lung transplant status | CPT/HCPCS: 94010 ==

== ENCOUNTER 2024-02-15 10:56 | Outpatient (RCR) | payer OTHER, SELFPAY ==
[2024-02-09 00:34] VITALS: BMI 31.6
[2024-02-15 11:31] LABS: Absolute Lymphocyte Count 1.04 X10^3/uL (0.83-4.51); Absolute Neutrophil Count 3.6 X10^3/uL (2.0-7.7); Basophil# 0.03 X10^3/uL; Basophil% 0.6 % (0-1); Eosinophil# 0.18 X10^3/uL; Eosinophils% 3.3 % (0-5); Hematocrit 41.6 % (40-54); Hemoglobin 12.6 g/dL (13.0-16.5); Lymphocyte # 1.04 X10^3/ul (0.83-4.51); Lymphocyte % 19.3 % (19-41); Mean Corp Hgb Conc 30.3 g/dL (32-36); Mean Corpuscular Hgb 28.6 pg (27.0-32.0); Mean Corpuscular Volume 94.5 fL (80-94); Mean Platelet Vol. 9.4 fl (6.2-12.0); Monocyte# 0.48 X10^3/uL; Monocyte% 8.9 % (0-10); NRBC Flagged by Analyzer 0 % (0-5); Neutrophil # 3.64 X10^3/uL (2.7-7.7); Neutrophil % 67.5 % (47-70); Platelet Count 145 K/mm3 (150-450); RBC Distribution Width CV 13.3 % (11.6-14.6); RBC Distribution Width SD 46.4 fl (35.1-43.9); White Blood Count 5.4 K/mm3 (4.4-11.0)
[2024-02-15 11:48] LABS: ALB/GLOB Ratio 1.3 RATIO (0.9-2.4); AST(SGOT) 13 U/L (15-37); Alanine Aminotransfer ALT/SGPT 21 U/L (16-61); Albumin, Serum 3.9 g/dL (3.2-5.0); Alkaline Phosphatase 86 U/L (45-117); Anion Gap 4 (5-15); BUN 30 mg/dL (7-18); BUN/Creat Ratio 24.4 RATIO (10-20); Bilirubin, Direct 0.12 mg/dL (0.00-0.30); Calcium,Total 10.1 mg/dL (8.5-10.1); Chloride 106 mmol/L (98-107); Creatinine, Serum 1.23 mg/dL (0.70-1.30); EST Glomerular Filtration Rate 61 mL/min (>60); Est Glom Filt Rate - Afr Amer 74 mL/min (>60); Globulin 3.1 g/dL (2.2-4.2); Glucose 105 mg/dL (74-106); Phosphorus 3.4 mg/dL (2.5-4.9); Potassium 4.4 mmol/L (3.5-5.1); Sodium Level 139 mmol/L (136-145)
[2024-02-15 12:47] LABS: Hemoglobin A1c 5.3 % (3.8-5.6)
[2024-02-17 13:08] LABS: GGTP 14 IU/L (0-65); Immunoglobulin A 169 mg/dL (61-437); Immunoglobulin G 440 mg/dL (603-1613); Immunoglobulin M 41 mg/dL (15-143)
== END 2024-03-10 23:59 ==
LOC: PAVLAB 10:56
PROVIDERS: PCP Nurse Practitioner Family
DX: D84.9 Immunodeficiency, unspecified (principal); R79.9 Abnormal finding of blood chemistry, unspecified; Z94.2 Lung transplant status; Z51.81 Encounter for therapeutic drug level monitoring; Z79.899 Other long term (current) drug therapy; D80.1 Nonfamilial hypogammaglobulinemia; E78.5 Hyperlipidemia, unspecified
CPT/HCPCS: 36415; 80053; 80197; 82248; 82784; 82977; 83036; 83735; 84100; 85025; 87497

== ENCOUNTER → 2024-03-03 | Outpatient (CLI) | payer OTHER, SELFPAY | END | disposition home or self-care (01) | PROVIDERS: PCP Nurse Practitioner Family; Referring Provider Internal Medicine; Visit Provider Internal Medicine | DX: Z94.2 Lung transplant status (principal) | CPT/HCPCS: 94010 ==

== ENCOUNTER → 2024-03-31 | Outpatient (CLI) | payer OTHER, SELFPAY | END | disposition home or self-care (01) | LOC: PSN 10:17 | PROVIDERS: PCP Nurse Practitioner Family; Referring Provider Internal Medicine; Visit Provider Internal Medicine | DX: Z94.2 Lung transplant status (principal); Z48.24 Encounter for aftercare following lung transplant | CPT/HCPCS: 94010 ==

== ENCOUNTER 2024-04-05 10:25 | Outpatient (RCR) | payer OTHER, SELFPAY ==
[2024-03-11 00:42] VITALS: BMI 31.6
[2024-03-14 11:06] LABS: Absolute Lymphocyte Count 0.71 X10^3/uL (0.83-4.51); Absolute Neutrophil Count 6.8 X10^3/uL (2.0-7.7); Basophil# 0.02 X10^3/uL; Basophil% 0.2 % (0-1); Eosinophil# 0.01 X10^3/uL; Eosinophils% 0.1 % (0-5); Hematocrit 40.8 % (40-54); Hemoglobin 12.9 g/dL (13.0-16.5); Lymphocyte # 0.71 X10^3/ul (0.83-4.51); Lymphocyte % 8.8 % (19-41); Mean Corp Hgb Conc 31.6 g/dL (32-36); Mean Corpuscular Hgb 29.2 pg (27.0-32.0); Mean Corpuscular Volume 92.3 fL (80-94); Mean Platelet Vol. 9.2 fl (6.2-12.0); Monocyte# 0.47 X10^3/uL; Monocyte% 5.8 % (0-10); NRBC Flagged by Analyzer 0 % (0-5); Neutrophil # 6.81 X10^3/uL (2.7-7.7); Platelet Count 148 K/mm3 (150-450); RBC Distribution Width CV 13.4 % (11.6-14.6); RBC Distribution Width SD 45.6 fl (35.1-43.9); Red Blood Count 4.42 M/mm3 (4.6-6.2); White Blood Count 8.1 K/mm3 (4.4-11.0)
[2024-03-14 11:29] LABS: ALB/GLOB Ratio 1.4 RATIO (0.9-2.4); AST(SGOT) 13 U/L (15-37); Alanine Aminotransfer ALT/SGPT 24 U/L (16-61); Alkaline Phosphatase 73 U/L (45-117); Anion Gap 6 (5-15); BUN 31 mg/dL (7-18); BUN/Creat Ratio 24.6 RATIO (10-20); Bilirubin, Direct 0.11 mg/dL (0.00-0.30); Calcium,Total 9.9 mg/dL (8.5-10.1); Chloride 109 mmol/L (98-107); Creatinine, Serum 1.26 mg/dL (0.70-1.30); EST Glomerular Filtration Rate 59 mL/min (>60); Est Glom Filt Rate - Afr Amer 72 mL/min (>60); Globulin 2.8 g/dL (2.2-4.2); Glucose 118 mg/dL (74-106); Magnesium 2.2 mg/dL (1.6-2.6); Phosphorus 2.5 mg/dL (2.5-4.9); Potassium 4.7 mmol/L (3.5-5.1); Protein, Total 6.8 g/dL (6.4-8.2); Sodium Level 138 mmol/L (136-145)
[2024-03-16 16:10] LABS: GGTP 17 IU/L (0-65); Tacrolimus (FK506) 3.5 ng/mL (2.0-20.0)
[2024-03-22 11:02] LABS: Anion Gap 7 (5-15); BUN 65 mg/dL (7-18); BUN/Creat Ratio 30.2 RATIO (10-20); Calcium,Total 9.8 mg/dL (8.5-10.1); Chloride 110 mmol/L (98-107); Creatinine, Serum 2.15 mg/dL (0.70-1.30); EST Glomerular Filtration Rate 32 mL/min (>60); Est Glom Filt Rate - Afr Amer 39 mL/min (>60); Glucose 145 mg/dL (74-106); Potassium 5.1 mmol/L (3.5-5.1); Sodium Level 137 mmol/L (136-145)
[2024-03-26 08:12] LABS: Tacrolimus (FK506) 60.4 ng/mL (2.0-20.0)
[2024-04-02 18:08] LABS: Tacrolimus (FK506) 2.9 ng/mL (2.0-20.0)
[2024-04-09 06:08] LABS: Tacrolimus (FK506) 1.8 ng/mL (2.0-20.0)
== END 2024-04-09 23:59 ==
LOC: PAVLAB 10:25
PROVIDERS: PCP Nurse Practitioner Family
DX: R79.9 Abnormal finding of blood chemistry, unspecified; Z94.2 Lung transplant status; Z51.81 Encounter for therapeutic drug level monitoring; Z79.899 Other long term (current) drug therapy; D80.1 Nonfamilial hypogammaglobulinemia; E78.5 Hyperlipidemia, unspecified
CPT/HCPCS: 36415; 80048; 80053; 80197; 82248; 82977; 83735; 84100; 85025

== ENCOUNTER 2024-05-09 10:11 | Outpatient (RCR) | payer OTHER, SELFPAY ==
[2024-04-10 00:48] VITALS: BMI 31.6
[2024-04-11 10:35] LABS: Absolute Lymphocyte Count 0.97 X10^3/uL (0.83-4.51); Absolute Neutrophil Count 5.8 X10^3/uL (2.0-7.7); Basophil# 0.03 X10^3/uL; Basophil% 0.4 % (0-1); Eosinophils% 1.3 % (0-5); Hematocrit 39.5 % (40-54); Hemoglobin 12.4 g/dL (13.0-16.5); Lymphocyte # 0.97 X10^3/ul (0.83-4.51); Lymphocyte % 12.8 % (19-41); Mean Corp Hgb Conc 31.4 g/dL (32-36); Mean Corpuscular Hgb 29.3 pg (27.0-32.0); Mean Corpuscular Volume 93.4 fL (80-94); Mean Platelet Vol. 9.3 fl (6.2-12.0); Monocyte# 0.55 X10^3/uL; Monocyte% 7.3 % (0-10); NRBC Flagged by Analyzer 0 % (0-5); Neutrophil # 5.78 X10^3/uL (2.7-7.7); Neutrophil % 76.6 % (47-70); Platelet Count 127 K/mm3 (150-450); RBC Distribution Width CV 14.2 % (11.6-14.6); Red Blood Count 4.23 M/mm3 (4.6-6.2); White Blood Count 7.6 K/mm3 (4.4-11.0)
[2024-04-11 10:52] LABS: ALB/GLOB Ratio 1.2 RATIO (0.9-2.4); AST(SGOT) 12 U/L (15-37); Alanine Aminotransfer ALT/SGPT 23 U/L (16-61); Albumin, Serum 3.5 g/dL (3.2-5.0); Alkaline Phosphatase 90 U/L (45-117); Anion Gap 6 (5-15); BUN 32 mg/dL (7-18); BUN/Creat Ratio 28.3 RATIO (10-20); Calcium,Total 9.8 mg/dL (8.5-10.1); Chloride 109 mmol/L (98-107); Creatinine, Serum 1.13 mg/dL (0.70-1.30); EST Glomerular Filtration Rate 67 mL/min (>60); Est Glom Filt Rate - Afr Amer 81 mL/min (>60); Glucose 114 mg/dL (74-106); Phosphorus 2.4 mg/dL (2.5-4.9); Potassium 4.3 mmol/L (3.5-5.1); Protein, Total 6.5 g/dL (6.4-8.2); Sodium Level 140 mmol/L (136-145)
[2024-04-13 08:13] LABS: GGTP 25 IU/L (0-65); Tacrolimus (FK506) 2.7 ng/mL (2.0-20.0)
[2024-04-25 09:22] LABS: Tacrolimus (FK506) 4.2 ng/mL (2.0-20.0)
[2024-05-09 10:39] LABS: Hematocrit 39.3 % (40-54); Mean Corp Hgb Conc 30.5 g/dL (32-36); Mean Corpuscular Hgb 29.2 pg (27.0-32.0); Mean Corpuscular Volume 95.6 fL (80-94); Mean Platelet Vol. 9.3 fl (6.2-12.0); Platelet Count 144 K/mm3 (150-450); RBC Distribution Width CV 14.6 % (11.6-14.6); RBC Distribution Width SD 51.6 fl (35.1-43.9); Red Blood Count 4.11 M/mm3 (4.6-6.2); White Blood Count 6.2 K/mm3 (4.4-11.0)
[2024-05-09 11:08] LABS: Hemoglobin A1c 5.5 % (3.8-5.6)
[2024-05-09 11:09] LABS: ALB/GLOB Ratio 1.2 RATIO (0.9-2.4); AST(SGOT) 14 U/L (15-37); Alanine Aminotransfer ALT/SGPT 23 U/L (16-61); Albumin, Serum 3.5 g/dL (3.2-5.0); Alkaline Phosphatase 83 U/L (45-117); Anion Gap 6 (5-15); BUN 24 mg/dL (7-18); BUN/Creat Ratio 19.7 RATIO (10-20); Bilirubin, Direct 0.07 mg/dL (0.00-0.30); Calcium,Total 8.7 mg/dL (8.5-10.1); Chloride 110 mmol/L (98-107); Creatinine, Serum 1.22 mg/dL (0.70-1.30); EST Glomerular Filtration Rate 61 mL/min (>60); Est Glom Filt Rate - Afr Amer 74 mL/min (>60); Glucose 101 mg/dL (74-106); Magnesium 2.2 mg/dL (1.6-2.6); Phosphorus 2.4 mg/dL (2.5-4.9); Potassium 4.2 mmol/L (3.5-5.1); Protein, Total 6.5 g/dL (6.4-8.2); Sodium Level 142 mmol/L (136-145)
[2024-05-12 18:07] LABS: GGTP 19 IU/L (0-65); Immunoglobulin A 144 mg/dL (61-437); Immunoglobulin G 363 mg/dL (603-1613); Immunoglobulin M 40 mg/dL (15-143); Tacrolimus (FK506) 3.5 ng/mL (2.0-20.0)
== END 2024-05-10 23:59 ==
LOC: PAVLAB 10:11
PROVIDERS: Internal Medicine; PCP Nurse Practitioner Family
DX: D84.9 Immunodeficiency, unspecified (principal); R79.9 Abnormal finding of blood chemistry, unspecified; Z94.2 Lung transplant status; Z51.81 Encounter for therapeutic drug level monitoring; Z79.899 Other long term (current) drug therapy
CPT/HCPCS: 36415; 80053; 80197; 82248; 82784; 82977; 83036; 83735; 84100; 85025; 85027; 87497

== ENCOUNTER → 2024-06-02 | Outpatient (CLI) | payer OTHER, SELFPAY | END | disposition home or self-care (01) | LOC: PSN 12:49 | PROVIDERS: PCP Nurse Practitioner Family; Referring Provider Internal Medicine; Visit Provider Internal Medicine | DX: Z94.2 Lung transplant status (principal) | CPT/HCPCS: 94010 ==

== ENCOUNTER 2024-06-06 08:13 | Outpatient (RCR) | payer OTHER, SELFPAY ==
[2024-05-11 00:25] VITALS: BMI 31.6
[2024-06-06 08:36] LABS: Absolute Lymphocyte Count 1.16 X10^3/uL (0.83-4.51); Absolute Neutrophil Count 3.4 X10^3/uL (2.0-7.7); Basophil# 0.03 X10^3/uL; Basophil% 0.6 % (0-1); Eosinophil# 0.12 X10^3/uL; Eosinophils% 2.3 % (0-5); Hematocrit 40.4 % (40-54); Hemoglobin 12.5 g/dL (13.0-16.5); Lymphocyte # 1.16 X10^3/ul (0.83-4.51); Mean Corp Hgb Conc 30.9 g/dL (32-36); Mean Corpuscular Hgb 29.6 pg (27.0-32.0); Mean Corpuscular Volume 95.5 fL (80-94); Mean Platelet Vol. 9.2 fl (6.2-12.0); Monocyte% 9.5 % (0-10); NRBC Flagged by Analyzer 0 % (0-5); Neutrophil % 64.5 % (47-70); Platelet Count 163 K/mm3 (150-450); RBC Distribution Width CV 13.9 % (11.6-14.6); RBC Distribution Width SD 48.7 fl (35.1-43.9); Red Blood Count 4.23 M/mm3 (4.6-6.2); White Blood Count 5.3 K/mm3 (4.4-11.0)
[2024-06-06 09:15] LABS: ALB/GLOB Ratio 1.1 RATIO (0.9-2.4); AST(SGOT) 13 U/L (15-37); Alanine Aminotransfer ALT/SGPT 20 U/L (16-61); Albumin, Serum 3.5 g/dL (3.2-5.0); Alkaline Phosphatase 88 U/L (45-117); Anion Gap 3 (5-15); BUN 27 mg/dL (7-18); BUN/Creat Ratio 20.3 RATIO (10-20); Bilirubin, Direct 0.08 mg/dL (0.00-0.30); Calcium,Total 9.9 mg/dL (8.5-10.1); Chloride 111 mmol/L (98-107); Creatinine, Serum 1.33 mg/dL (0.70-1.30); EST Glomerular Filtration Rate 56 mL/min (>60); Est Glom Filt Rate - Afr Amer 67 mL/min (>60); Globulin 3.1 g/dL (2.2-4.2); Glucose 96 mg/dL (74-106); Phosphorus 2.9 mg/dL (2.5-4.9); Potassium 4.3 mmol/L (3.5-5.1); Protein, Total 6.6 g/dL (6.4-8.2); Sodium Level 144 mmol/L (136-145)
[2024-06-08 08:09] LABS: GGTP 17 IU/L (0-65); Tacrolimus (FK506) 4.8 ng/mL (2.0-20.0)
== END 2024-06-10 23:59 ==
LOC: PAVLAB 08:13
PROVIDERS: Internal Medicine; PCP Nurse Practitioner Family
DX: D84.9 Immunodeficiency, unspecified (principal); R79.9 Abnormal finding of blood chemistry, unspecified; Z94.2 Lung transplant status; Z51.81 Encounter for therapeutic drug level monitoring; Z79.899 Other long term (current) drug therapy
CPT/HCPCS: 36415; 80053; 80197; 82248; 82977; 83735; 84100; 85025

== ENCOUNTER 2024-06-27 08:59 | Outpatient (RCR) | payer OTHER, SELFPAY ==
[2024-06-11 01:57] VITALS: BMI 31.6
[2024-06-27 09:32] LABS: Absolute Lymphocyte Count 0.83 X10^3/uL (0.83-4.51); Absolute Neutrophil Count 7.3 X10^3/uL (2.0-7.7); Basophil# 0.02 X10^3/uL; Basophil% 0.2 % (0-1); Eosinophil# 0.01 X10^3/uL; Eosinophils% 0.1 % (0-5); Hematocrit 42.2 % (40-54); Hemoglobin 13.1 g/dL (13.0-16.5); Lymphocyte # 0.83 X10^3/ul (0.83-4.51); Lymphocyte % 9.4 % (19-41); Mean Corpuscular Hgb 29.6 pg (27.0-32.0); Mean Corpuscular Volume 95.3 fL (80-94); Mean Platelet Vol. 9.6 fl (6.2-12.0); Monocyte# 0.49 X10^3/uL; Monocyte% 5.5 % (0-10); NRBC Flagged by Analyzer 0 % (0-5); Neutrophil % 82.4 % (47-70); Platelet Count 176 K/mm3 (150-450); RBC Distribution Width CV 13.4 % (11.6-14.6); RBC Distribution Width SD 47.7 fl (35.1-43.9); Red Blood Count 4.43 M/mm3 (4.6-6.2); White Blood Count 8.9 K/mm3 (4.4-11.0)
[2024-06-27 09:47] LABS: AST(SGOT) 16 U/L (15-37); Alanine Aminotransfer ALT/SGPT 18 U/L (16-61); Albumin, Serum 3.6 g/dL (3.2-5.0); Alkaline Phosphatase 72 U/L (45-117); Anion Gap 8 (5-15); BUN 29 mg/dL (7-18); BUN/Creat Ratio 21.6 RATIO (10-20); Bilirubin, Direct 0.07 mg/dL (0.00-0.30); Calcium,Total 10.4 mg/dL (8.5-10.1); Chloride 109 mmol/L (98-107); Creatinine, Serum 1.34 mg/dL (0.70-1.30); EST Glomerular Filtration Rate 55 mL/min (>60); Est Glom Filt Rate - Afr Amer 67 mL/min (>60); Glucose 113 mg/dL (74-106); Magnesium 2.3 mg/dL (1.6-2.6); Phosphorus 2.7 mg/dL (2.5-4.9); Potassium 4.9 mmol/L (3.5-5.1); Sodium Level 140 mmol/L (136-145)
[2024-06-27 17:23] LABS: Xtra Tube EP Lab EXTRA TUBE
[2024-06-29 14:08] LABS: GGTP 21 IU/L (0-65); Tacrolimus (FK506) 3.9 ng/mL (5.0-20.0)
== END 2024-07-08 23:59 ==
LOC: PAVLAB 08:59
PROVIDERS: PCP Nurse Practitioner Family
DX: D84.9 Immunodeficiency, unspecified (principal); R79.9 Abnormal finding of blood chemistry, unspecified; Z94.2 Lung transplant status; Z51.81 Encounter for therapeutic drug level monitoring; Z79.899 Other long term (current) drug therapy
CPT/HCPCS: 36415; 80048; 80197; 82040; 82247; 82248; 82977; 83735; 84075; 84100; 84450; 84460; 85025

== ENCOUNTER → 2024-06-30 | Outpatient (CLI) | payer OTHER, SELFPAY | END | disposition home or self-care (01) | PROVIDERS: PCP Nurse Practitioner Family; Referring Provider Internal Medicine; Visit Provider Internal Medicine | DX: Z48.24 Encounter for aftercare following lung transplant (principal); Z94.2 Lung transplant status | CPT/HCPCS: 94010 ==

== ENCOUNTER 2024-07-25 09:47 | Outpatient (RCR) | payer OTHER, SELFPAY ==
[2024-07-09 02:19] VITALS: BMI 31.6
[2024-07-25 10:29] LABS: Absolute Lymphocyte Count 1.21 X10^3/uL (0.83-4.51); Absolute Neutrophil Count 3.9 X10^3/uL (2.0-7.7); Basophil# 0.02 X10^3/uL; Basophil% 0.4 % (0-1); Eosinophil# 0.06 X10^3/uL; Eosinophils% 1.1 % (0-5); Hemoglobin 13.3 g/dL (13.0-16.5); Lymphocyte # 1.21 X10^3/ul (0.83-4.51); Lymphocyte % 21.3 % (19-41); Mean Corp Hgb Conc 30.9 g/dL (32-36); Mean Corpuscular Hgb 29.2 pg (27.0-32.0); Mean Corpuscular Volume 94.3 fL (80-94); Mean Platelet Vol. 9.3 fl (6.2-12.0); Monocyte# 0.44 X10^3/uL; Monocyte% 7.7 % (0-10); NRBC Flagged by Analyzer 0 % (0-5); Neutrophil # 3.92 X10^3/uL (2.7-7.7); Platelet Count 146 K/mm3 (150-450); RBC Distribution Width CV 12.9 % (11.6-14.6); RBC Distribution Width SD 44.6 fl (35.1-43.9); Red Blood Count 4.56 M/mm3 (4.6-6.2); White Blood Count 5.7 K/mm3 (4.4-11.0)
[2024-07-25 11:02] LABS: Hemoglobin A1c 5.8 % (<=5.6)
[2024-07-25 11:17] LABS: Cholesterol 234 mg/dL (<=200); Ferritin 112 ng/mL (37-417); High Density Lipoprotein 57 mg/dL; Low Density Lipoprotein Calc. 141 mg/dL; Triglycerides 177 mg/dL; Very Low Density Lipoprotein 35 mg/dL (5-40); Vitamin D,25 Hydroxy 44.4 ng/mL (30-100); cholesterol:hdl ratio screen 4.09
[2024-07-25 11:48] LABS: AST(SGOT) 18 U/L (<=37); Alanine Aminotransfer ALT/SGPT 16 U/L (<=46); Albumin, Serum 4.3 g/dL (3.4-4.8); Alkaline Phosphatase 67 U/L (40-129); Anion Gap 12 (5-15); Bilirubin, Direct 0.11 mg/dL (0.00-0.30); Calcium,Total 9.5 mg/dL (7.6-11.0); Chloride 106 mmol/L (98-108); Creatinine, Serum 1.32 mg/dL (0.70-1.20); EST Glomerular Filtration Rate 56 (>60); Globulin 2.2 g/dL (2.2-4.2); Glucose 100 mg/dL (70-99); Potassium 4.2 mmol/L (3.3-5.1); Protein, Total 6.5 g/dL (5.9-8.4); Sodium Level 141 mmol/L (133-145); Total Bilirubin 0.24 mg/dL (0.00-1.30)
[2024-07-25 12:00] LABS: BUN 24 mg/dL (4-19); BUN/Creat Ratio 18.5 RATIO (10-20); Iron Binding Capacity,Total 319 ug/dL (250-450)
[2024-07-25 12:07] LABS: Iron 58 ug/dL (65-175); Iron Binding Capacity,Unsat 261 ug/dL (228-428); PERCENT IRON SATURATION 18.2 % (9-55)
[2024-07-27 18:08] LABS: EBV-VCA IgG > 600.0 U/mL (0.0-17.9); Immunoglobulin A 157 mg/dL (61-437); Immunoglobulin G 369 mg/dL (603-1613); Immunoglobulin M 41 mg/dL (15-143); Tacrolimus (FK506) 3.7 ng/mL (5.0-20.0)
== END 2024-08-08 23:59 ==
LOC: PAVLAB 09:47
PROVIDERS: PCP Nurse Practitioner Family
DX: R79.9 Abnormal finding of blood chemistry, unspecified; Z94.2 Lung transplant status; Z51.81 Encounter for therapeutic drug level monitoring; Z79.899 Other long term (current) drug therapy; E55.9 Vitamin D deficiency, unspecified; D80.1 Nonfamilial hypogammaglobulinemia; E78.5 Hyperlipidemia, unspecified
CPT/HCPCS: 36415; 80048; 80061; 80076; 80197; 82306; 82728; 82784; 83036; 83540; 83550; 83735; 84100; 85025; 86665; 87497

== ENCOUNTER → 2024-08-02 | Outpatient (CLI) | payer OTHER, SELFPAY | END | disposition home or self-care (01) | LOC: PSN 11:09 | PROVIDERS: PCP Nurse Practitioner Family; Referring Provider Internal Medicine; Visit Provider Internal Medicine | DX: Z94.2 Lung transplant status (principal) | CPT/HCPCS: 94010 ==

== ENCOUNTER 2024-08-04 12:58 | Emergency (ER) | payer OTHER, SELFPAY ==
[2024-08-04 12:59] VITALS: BP 111/87; PULSE 98; RESP 19; TEMP 36.2; O2SAT 96; BMI 37.5
--- NOTE | 2024-08-04 13:50 | CT_ITS ---
PROCEDURE: ABDOMEN/PELVIS W IV CONT ONLY 08/04/2024 REASON FOR EXAM: LLQ ABDOMINAL PAIN TECHNIQUE: Abdomen and pelvis CT with intravenous contrast. Coronal and Sagittal reconstruction series were provided. One or more dose reduction techniques were used (e.g., Automated exposure control, adjustment of the mA and/or kV according to patient size, use of iterative reconstruction technique. COMPARISON: None FINDINGS: Lower chest: Median sternotomy wires are partially visualized. Liver: Unremarkable. Biliary/gallbladder: Unremarkable. Pancreas: Unremarkable. Spleen: Unremarkable. Adrenal glands: Unremarkable. Kidneys: A few small cysts are present in the upper pole of the left kidney. There is no renal calculus or hydronephrosis. Gastrointestinal/peritoneum: Acute diverticulitis is present at the distal descending colon with wall thickening and pericolonic fat stranding.No free air or abscess is identified.There are no dilated loops of bowel. Moderate colonic diverticulosis is present. Vascular: Mild scattered atherosclerotic calcifications are present. Lymph nodes: No enlarged lymph nodes by CT size criteria. Pelvic organs: Unremarkable. Bladder: Unremarkable. Bones: Postoperative changes of posterior fusion and laminectomy spanning L2 through S1. Soft tissues: Unremarkable. CT/Abdomen/Pelvis W IV Cont ONLY IMPRESSION: 1. Acute diverticulitis of the distal descending colon without complication. Reading Location: [facility]
[2024-08-04 14:20] LABS: Absolute Lymphocyte Count 0.51 X10^3/uL (0.83-4.51); Absolute Neutrophil Count 7.9 X10^3/uL (2.0-7.7); Basophil# 0.02 X10^3/uL; Basophil% 0.2 % (0-1); Eosinophil# 0.09 X10^3/uL; Hematocrit 39.1 % (40-54); Hemoglobin 12.7 g/dL (13.0-16.5); Lymphocyte # 0.51 X10^3/ul (0.83-4.51); Lymphocyte % 5.5 % (19-41); Mean Corp Hgb Conc 32.5 g/dL (32-36); Mean Corpuscular Hgb 29.7 pg (27.0-32.0); Mean Corpuscular Volume 91.6 fL (80-94); Mean Platelet Vol. 9.6 fl (6.2-12.0); Monocyte# 0.64 X10^3/uL; Monocyte% 6.9 % (0-10); NRBC Flagged by Analyzer 0 % (0-5); Neutrophil # 7.89 X10^3/uL (2.7-7.7); Neutrophil % 85.7 % (47-70); POSITIVE DIFFERENTIAL YES; Platelet Count 144 K/mm3 (150-450); RBC Distribution Width SD 42.7 fl (35.1-43.9); Red Blood Count 4.27 M/mm3 (4.6-6.2); White Blood Count 9.2 K/mm3 (4.4-11.0)
[2024-08-04] MEDS: 0.9% Normal Saline (1000mL) 1,000 ML 999 ML IV (14:33)
--- NOTE | 2024-08-04 15:05 | EX.ED.DYSGE1 ---
HPI History of Present Illness Chief Complaint: Abd Pain Narrative Narrative: Chief complaint and HPI: Left lower quadrant abdominal pain. 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 Patient states on Thursday he developed pain in the left lower quadrant. He states that the pain has not improved which is why he presents today. He rates it a 3 out of 10 with the worst being a 6 out of 10. Describes it as crampy. Denies any fever, chills, shortness of breath, chest pain, nausea, vomiting, diarrhea, constipation. Eating and drinking. Denies any dysuria or testicular pain. Review of systems: See HPI Medications: As listed on the chart Allergies: As listed on the chart PFSH: Per chart Vital signs: As listed on the chart. Reviewed. Physical exam: Gen: A&O x3, NAD Head: Normocephalic, atraumatic Eyes: No sclera icterus, conjunctiva clear ENT: Moist mucous membranes Neck: Trachea midline, No JVD CV: RRR, no murmurs, no peripheral edema Resp: Lungs CTA BL, no w/r/c GI: Abd soft, non-distended, mild tenderness in the left lower quadrant, no r/r/g : No CVA tenderness Musc: Full ROM, no deformity Skin: Warm, dry Neuro: Alert, oriented, grossly intact, sensation intact Psych: Cooperative, appropriate mood and affect [facility] Medical History Secondary adrenal insufficiency Hyperlipidemia Essential hypertension Fusion of lumbar spine Wears glasses Cancer History of steroid therapy Anemia Easy bruising Back pain Diarrhea Gastric reflux Former smoker Shortness of breath on exertion History of echocardiogram Cardiology follow-up encounter Post Lung transplant -left (~05/31/20) Osteoporosis Vitamin D deficiency Chronic hypoxemic respiratory failure Obesity Atherosclerosis of coronary artery of [place] 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 Asthma Allergic asthma with acute exacerbation PND (post-nasal drip) Stage 4 very severe COPD by GOLD classification Sprain and strain of lumbosacral joint/ligament Spinal stenosis SCOTT (obstructive sleep apnea) Chronic hypoxemic respiratory failure Nonrheumatic tricuspid (valve) insufficiency Chest pain, unspecified Oxygen desaturation Acute exacerbation of chronic obstructive pulmonary disease Acute respiratory failure with hypoxia COPD (chronic obstructive pulmonary disease) Home Medications ?Medication ?Instructions ?Recorded ?Last Taken ?Type aspirin 81 mg tablet,delayed 81 mg PO DAILY 07/31/20 Unknown History release ferrous sulfate 325 mg (65 mg 325 mg PO LUNCH 07/31/20 Unknown History iron) tablet magnesium oxide 400 mg PO BID 07/31/20 Unknown History pantoprazole 40 mg tablet,delayed 40 mg PO DAILY 07/31/20 Unknown History release azithromycin 250 mg tablet 250 mg PO QMWF 08/07/20 Unknown History prednisone 5 mg tablet 5 mg PO DAILY 08/07/20 Unknown History calcium 250 mg (as 1 each PO DAILY 08/30/20 Unknown History carbonate)-vitamin D3 3.125 mcg (125 unit) tablet sulfamethoxazole 800 1 each PO MOWEFR 08/30/20 Unknown History mg-trimethoprim 160 mg tablet multivitamin 1 tab PO DAILY 10/23/20 Unknown History cetirizine 10 mg tablet (Zyrtec) 10 mg PO DAILY PRN Allergic 03/21/21 Unknown History Symptoms cholecalciferol (vitamin D3) 25 50 mcg PO DAILY 08/01/21 Unknown History mcg (1,000 unit) capsule tamsulosin 0.4 mg capsule 0.4 mg PO DAILY 01/30/22 Unknown History hydrocodone 10 mg-acetaminophen 1 tab PO Q12H PRN Pain 03/21/22 Unknown History 325 mg tablet mycophenolate mofetil 500 mg 1,000 mg PO BID 07/29/22 Unknown History tablet (CellCept) denosumab 60 mg/mL subcutaneous 60 mg subcut [id number] #1 mL 05/14/23 Unknown Rx syringe tacrolimus 0.5 mg capsule,extended See Rx Instructions PO .COMPLEX 05/14/23 Unknown History release 24 hr gabapentin 600 mg tablet mg PO 06/10/24 Unknown History amoxicillin 875 mg-potassium 1 tab PO BID 14 days #28 tabs 08/04/24 Unknown Rx clavulanate 125 mg tablet Allergy/AdvReac Type Severity Reaction Status Date / Time nirmatrelvir (From Paxlovid) AdvReac Severe Medication Verified 08/04/24 13:02 contraindications ritonavir (From Paxlovid) AdvReac Severe Medication Verified 08/04/24 13:02 contraindications Family History Father Heart disease Surgical History History of spinal fusion (11/13/22) History of cardiac catheterization History of left heart catheterization (11/28/19) History of back surgery History of coronary artery stent placement (07/13/06) S/P left rotator cuff repair Social History Smoking Status: Former smoker quit date: 05/11/16 pack-years: 38 second hand exposure: No alcohol intake: current alcohol intake frequency: holidays/special occasions only Alcohol type: beer substance use type: does not use EXAM Physical Exam Const Vital Signs: 08/04/24 12:59 08/04/24 15:15 08/04/24 15:54 Temperature 97.2 F L 98 F Temperature Source Temporal Pulse Rate 98 78 78 Respiratory Rate 19 H 17 17 Blood Pressure 111/87 H 138/78 H Blood Pressure Mean 95 98 Pulse Ox 96 97 97 Oxygen Delivery Method Room Air MDM MDM MDM Narrative Medical decision making narrative: 74-year-old male with past medical history of 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 On chart review, patient had a colonoscopy in [address] Mixon. Polyps with diverticulosis. Differential diagnosis includes but is not limited to diverticulitis, colitis, viral gastroenteritis, electrolyte abnormality, UTI. Patient declining pain meds at this time. NS bolus ordered. CBC without leukocytosis. Patient has baseline anemia and thrombocytopenia. CMP shows baseline renal insufficiency. No transaminitis. Lipase unremarkable. Lactic acid unremarkable. UA negative for UTI. CT abdomen pelvis shows acute diverticulitis of the distal descending colon without complication. On reevaluation, patient's pain is still minimal. He has been eating and drinking well. Plan will be for discharge home on Augmentin x 14 days. He will be given his first dose here. He was educated that he will be on a longer duration given his immunocompromised state. He was told that if he develops worsening or changing symptoms he needs to be awry evaluated in the emergency department. He confirmed understand the plan. Follow-up with PCP and general surgery. Tylenol as needed for pain. Recommended 24 to 48-hour liquid diet with advancement after. Him and confirmed understand the plan. Impression: 1. Acute uncomplicated diverticulitis 2. Renal transplant on immunosuppressants 3. Chronic anemia and thrombocytopenia 4. Chronic renal insufficiency Lab Data Labs: Laboratory Results - last 24 hr 08/04/24 08/04/24 14:02 14:57 WBC 9.2 RBC 4.27 L Hgb 12.7 L Hct 39.1 L MCV 91.6 MCH 29.7 MCHC 32.5 RDW Std Deviation 42.7 RDW Coeff of Alexa 13.0 Plt Count 144 L MPV 9.6 Immature Gran % (Auto) 0.700 Neut % (Auto) 85.7 H Lymph % (Auto) 5.5 L Sharkey % (Auto) 6.9 Eos % (Auto) 1.0 Baso % (Auto) 0.2 Absolute Neuts (auto) 7.9 H Absolute Lymphs (auto) 0.51 L Nucleated RBC % 0 Sodium 138 Potassium 4.5 Chloride 105 Carbon Dioxide 20.1 L Anion Gap 14 BUN 22 H Creatinine 1.38 H Estim Creat Clear Calc 55.28 Est GFR (MDRD) Non-Af 53 L BUN/Creatinine Ratio 15.7 Glucose 110 H Lactic Acid 1.6 Calcium 9.3 Total Bilirubin 0.26 AST 15 ALT 16 Alkaline Phosphatase 64 Total Protein 5.1 L Albumin 3.7 Globulin 1.4 L Albumin/Globulin Ratio 2.6 H Lipase 30 Urine Color Yellow Urine Clarity Sl. Cloudy Urine pH 7.0 Ur Specific [place] 1.005 Urine Protein 15 H Urine Glucose (UA) Normal Urine Ketones Negative Urine Occult Blood Negative Urine Nitrite Negative Urine Bilirubin Negative Urine Urobilinogen Normal Ur Leukocyte Esterase Negative Urine RBC 0 SEEN Urine WBC 0 SEEN Ur Squamous Epith Cells 0 SEEN Amorphous Sediment 1+ PHOS Urine Bacteria 0 SEEN Urine Mucus 0 SEEN Radiography Diagnostic Testing: Clinical Impression(s) from Imaging Studies Abdomen/Pelvis CT 08/04/24 13:50 IMPRESSION: 1. Acute diverticulitis of the distal descending colon without complication. Reading Location: [facility] Discharge Plan Triage Chief Complaint: Abd Pain ED Provider: Ridge Beltrán Dx/Rx/DC Orders Clinical Impression: Diverticulitis Instructions: Clear Liquid Diet Dc, ED Diverticulitis, ED Full Liquid Diet Prescriptions: New amoxicillin-pot clavulanate 875-125 mg tablet 1 tab PO BID 14 Days Qty: 28 0RF No Action cetirizine [Zyrtec] 10 mg tablet 10 mg PO DAILY PRN (Reason: Allergic Symptoms) prednisone 5 mg tablet 5 mg PO DAILY azithromycin 250 mg tablet 250 mg PO QMWF multivitamin Tablet 1 tab PO DAILY hydrocodone-acetaminophen 10-325 mg tablet 1 tab PO Q12H PRN (Reason: Pain) Patient Comments: TAKE ONE TABLET BY MOUTH EVERY 12 HOURS NEEDED FOR PAIN cholecalciferol (vitamin D3) 25 mcg (1,000 unit) capsule 50 mcg PO DAILY mycophenolate mofetil [CellCept] 500 mg tablet 1,000 mg PO BID denosumab 60 mg/mL syringe 60 mg subcut [id number] Qty: 1 0RF gabapentin 600 mg tablet PO Patient Comments: [NO ORIGINAL SIG] aspirin 81 MG tablet,delayed release (DR/EC) 81 mg PO DAILY pantoprazole 40 MG tablet 40 mg PO DAILY ferrous sulfate 325 MG tablet 325 mg PO LUNCH magnesium oxide 240 MG powder in packet 400 mg PO BID tamsulosin 0.4 mg capsule 0.4 mg PO DAILY tacrolimus 0.5 mg capsule,extended release 24hr See Rx Instructions PO .COMPLEX Rx Instructions: Take 1.5mg in AM and 1mg in PM sulfamethoxazole-trimethoprim 1 EACH tablet 1 each PO MOWEFR calcium carbonate-vitamin D3 1 EACH tablet 1 each PO DAILY Primary Care Provider: Farhana Paez Referrals: Naye Rubio MD [Med Staff - Active Staff] - 3-5 Days Farhana Paez NP-C [Primary Care Provider] - 3-5 Days Activity Restrictions/Additional Instructions: Follow-up with your primary care physician as well as general surgery. Return back to the ED if symptoms change or worsen. Stick to a liquid diet for the next 24 to 48 hours. Okay to advance diet afterwards. Tylenol as needed for pain. Take your second dose of antibiotic this evening as you received your first dose here. Print Language: Turkmen Disposition Disposition: Home, Self Care Discharge Date/Time: 08/04/24 15:55
[2024-08-04 15:07] LABS: Bacteria 0 SEEN /hpf (None Seen); Mucous, Urine 0 SEEN /hpf (<or=2+); Squamous Epithelial Cells - UA 0 SEEN /hpf (0-5); White Blood Cells 0 SEEN /hpf (0-5)
[2024-08-04 15:08] LABS: ALB/GLOB Ratio 2.6 RATIO (0.9-2.4); AST(SGOT) 15 U/L (<=37); Alanine Aminotransfer ALT/SGPT 16 U/L (<=46); Albumin, Serum 3.7 g/dL (3.4-4.8); Alkaline Phosphatase 64 U/L (40-129); Anion Gap 14 (5-15); BUN 22 mg/dL (4-19); BUN/Creat Ratio 15.7 RATIO (10-20); Calcium,Total 9.3 mg/dL (7.6-11.0); Carbon Dioxide 20.1 mmol/L (21.0-32.0); Chloride 105 mmol/L (98-108); Creatinine, Serum 1.38 mg/dL (0.70-1.20); EST Glomerular Filtration Rate 53 (>60); Estimated Creatinine Clearance 55.28 ml/min (50-250); Globulin 1.4 g/dL (2.2-4.2); Glucose 110 mg/dL (70-99); Lactic Acid 1.6 mmol/L (0.0-2.0); Lipase 30 U/L (13-75); Potassium 4.5 mmol/L (3.3-5.1); Protein, Total 5.1 g/dL (5.9-8.4); Sodium Level 138 mmol/L (133-145); Total Bilirubin 0.26 mg/dL (0.00-1.30)
[2024-08-04 15:15] VITALS: PULSE 78; RESP 17; O2SAT 97
[2024-08-04 15:20] LABS: Color, Urine Yellow (Yellow); Glucose, Dipstick Normal (Normal); Ketone-Dipstick Negative (Negative); Leukocyte Esterase-Dipstick Negative /ul (Negative); Nitrite-Dipstick Negative (Negative); Occult Blood-Urine Negative /ul (Negative); Protein-Dipstick 15 mg/dl (Negative); Specific Gravity, Urine 1.005 (1.002-1.030); Urine Bilirubin Dipstick Negative (Negative); Urine Clarity Sl. Cloudy (Clear); Urine Urobilinogen Normal (Normal)
[2024-08-04 15:47] LABS: Amorphous Sediment 1+ PHOS; Red Blood Cells-Urine 0 SEEN /hpf (0-5)
[2024-08-04 15:54] VITALS: BP 138/78; PULSE 78; RESP 17; TEMP 36.6; O2SAT 97
[2024-08-04] MEDS: Amox/Clavulanate 875 MG Tablet PO (15:54)
== END 2024-08-04 15:55 | disposition home or self-care (01) ==
PROVIDERS: Emergency Provider Surgery; PCP Nurse Practitioner Family; Visit Provider Surgery
DX: K57.32 Diverticulitis of large intestine without perforation or abscess without bleeding (principal); Z94.2 Lung transplant status; J44.9 Chronic obstructive pulmonary disease, unspecified; E78.5 Hyperlipidemia, unspecified; I12.9 Hypertensive chronic kidney disease with stage 1 through stage 4 chronic kidney disease, or unspecified chronic kidney disease; N18.9 Chronic kidney disease, unspecified; D64.9 Anemia, unspecified; E55.9 Vitamin D deficiency, unspecified; D69.6 Thrombocytopenia, unspecified; K21.9 Gastro-esophageal reflux disease without esophagitis; I25.10 Atherosclerotic heart disease of native coronary artery without angina pectoris; M81.0 Age-related osteoporosis without current pathological fracture; M48.00 Spinal stenosis, site unspecified; G47.33 Obstructive sleep apnea (adult) (pediatric); Z98.1 Arthrodesis status; Z95.5 Presence of coronary angioplasty implant and graft; Z79.82 Long term (current) use of aspirin; Z79.899 Other long term (current) drug therapy; Z87.891 Personal history of nicotine dependence
CPT/HCPCS: 74177; 80053; 81001; 83605; 83690; 85025; 96360; 99283; Q9967

== ENCOUNTER → 2024-08-11 | Outpatient (CLI) | payer MEDICARE, BC, SELFPAY ==
--- NOTE | 2024-08-11 13:10 | CT_ITS ---
PROCEDURE: LOW DOSE CT LUNG SCREENING 08/11/2024 REASON FOR EXAM: FORMER SMOKER Patient has smoked 1 pack per day for 20 years. TECHNIQUE: Low Dose CT Lung screening without contrast. Coronal and Sagittal reconstruction series were provided. One or more dose reduction techniques were used (e.g., Automated exposure control, adjustment of the mA and/or kV according to patient size, use of iterative reconstruction technique). REFERENCE LINK: Stand In Lung-RADS RADIATION DOSE SUMMARY: CTDlvol: 3.18 mGy DLP: 119.14 mGycm COMPARISON: None FINDINGS: PULMONARY NODULES: (Only nodules >3mm are reported) Nodules described below are on series 1 unless otherwise specified. Pulmonary Nodules: No suspicious nodules are seen. Hardware:Sternotomy wires and mediastinal clips Lymph Nodes:No evidence of mediastinal lymphadenopathy. Heart and Vasculature:Coronary artery calcifications are noted. Coronary Artery Calcifications: Present Lungs and Airways: Mild emphysematous changes are present. Focal scarring in the right upper lobe medially. Scarring and thickening of the right major fissure. Pleura:Unremarkable Upper Abdomen:Unremarkable Bones:Degenerative changes of the thoracic spine. CT/Low Dose CT Lung Screening IMPRESSION: No suspicious nodules are seen. Coronary artery calcification (CAC) is is present Lung-RADS Category: 2 BENIGN (BASED ON IMAGING FEATURES OR INDOLENT BEHAVIOR). RECOMMEND 12-MONTH SCREENING LDCT. Other Significant Findings: None. Reading Location: [place] [id number]
== END | disposition home or self-care (01) ==
PROVIDERS: PCP Nurse Practitioner Family; Referring Provider Nurse Practitioner Acute Care; Visit Provider Nurse Practitioner Acute Care
DX: Z87.891 Personal history of nicotine dependence (principal)
CPT/HCPCS: 71271

== ENCOUNTER 2024-08-22 10:19 | Outpatient (RCR) | payer OTHER, SELFPAY ==
[2024-08-09 00:27] VITALS: BMI 31.6
[2024-08-22 10:48] LABS: Absolute Lymphocyte Count 1.16 X10^3/uL (0.83-4.51); Absolute Neutrophil Count 4.2 X10^3/uL (2.0-7.7); Basophil# 0.03 X10^3/uL; Basophil% 0.5 % (0-1); Eosinophils% 3.3 % (0-5); Hematocrit 41.1 % (40-54); Hemoglobin 12.9 g/dL (13.0-16.5); Lymphocyte # 1.16 X10^3/ul (0.83-4.51); Lymphocyte % 19.1 % (19-41); Mean Corp Hgb Conc 31.4 g/dL (32-36); Mean Corpuscular Hgb 28.9 pg (27.0-32.0); Mean Corpuscular Volume 91.9 fL (80-94); Mean Platelet Vol. 9.1 fl (6.2-12.0); Monocyte# 0.46 X10^3/uL; Monocyte% 7.6 % (0-10); NRBC Flagged by Analyzer 0 % (0-5); Neutrophil # 4.18 X10^3/uL (2.7-7.7); Neutrophil % 68.8 % (47-70); Platelet Count 197 K/mm3 (150-450); RBC Distribution Width CV 13.2 % (11.6-14.6); RBC Distribution Width SD 43.8 fl (35.1-43.9); Red Blood Count 4.47 M/mm3 (4.6-6.2); White Blood Count 6.1 K/mm3 (4.4-11.0)
[2024-08-22 11:08] LABS: Anion Gap 11 (5-15); BUN 22 mg/dL (4-19); Calcium,Total 9.8 mg/dL (7.6-11.0); Carbon Dioxide 23.2 mmol/L (21.0-32.0); Chloride 105 mmol/L (98-108); Creatinine, Serum 1.36 mg/dL (0.70-1.20); EST Glomerular Filtration Rate 54 (>60); Glucose 105 mg/dL (70-99); Potassium 4.4 mmol/L (3.3-5.1); Sodium Level 140 mmol/L (133-145)
[2024-08-22 18:27] LABS: Xtra Tube EP Lab EXTRA TUBE
[2024-08-24 07:08] LABS: Tacrolimus (FK506) 3.7 ng/mL (5.0-20.0)
== END 2024-09-07 23:59 ==
LOC: PAVLAB 10:19
PROVIDERS: PCP Nurse Practitioner Family
DX: Z94.2 Lung transplant status; Z51.81 Encounter for therapeutic drug level monitoring; Z79.899 Other long term (current) drug therapy; R79.9 Abnormal finding of blood chemistry, unspecified; E78.5 Hyperlipidemia, unspecified; D84.9 Immunodeficiency, unspecified; E55.9 Vitamin D deficiency, unspecified; R79.89 Other specified abnormal findings of blood chemistry
CPT/HCPCS: 36415; 80048; 80197; 85025

== ENCOUNTER 2024-09-19 10:00 | Outpatient (RCR) | payer OTHER, SELFPAY ==
[2024-09-08 00:12] VITALS: BMI 31.6
[2024-09-19 10:23] LABS: Absolute Lymphocyte Count 1.06 X10^3/uL (0.83-4.51); Absolute Neutrophil Count 4.4 X10^3/uL (2.0-7.7); Basophil# 0.02 X10^3/uL; Basophil% 0.3 % (0-1); Eosinophil# 0.16 X10^3/uL; Eosinophils% 2.5 % (0-5); Hematocrit 40.8 % (40-54); Hemoglobin 12.9 g/dL (13.0-16.5); Lymphocyte # 1.06 X10^3/ul (0.83-4.51); Lymphocyte % 16.9 % (19-41); Mean Corp Hgb Conc 31.6 g/dL (32-36); Mean Corpuscular Hgb 29.4 pg (27.0-32.0); Mean Corpuscular Volume 92.9 fL (80-94); Mean Platelet Vol. 9.3 fl (6.2-12.0); Monocyte# 0.58 X10^3/uL; Monocyte% 9.2 % (0-10); NRBC Flagged by Analyzer 0 % (0-5); Neutrophil # 4.44 X10^3/uL (2.7-7.7); Neutrophil % 70.8 % (47-70); Platelet Count 176 K/mm3 (150-450); RBC Distribution Width CV 13.8 % (11.6-14.6); RBC Distribution Width SD 47.4 fl (35.1-43.9); Red Blood Count 4.39 M/mm3 (4.6-6.2); White Blood Count 6.3 K/mm3 (4.4-11.0)
[2024-09-19 10:48] LABS: Anion Gap 12 (5-15); BUN 34 mg/dL (4-19); BUN/Creat Ratio 20.8 RATIO (10-20); Calcium,Total 10.2 mg/dL (7.6-11.0); Carbon Dioxide 21.1 mmol/L (21.0-32.0); Chloride 105 mmol/L (98-108); Creatinine, Serum 1.61 mg/dL (0.70-1.20); EST Glomerular Filtration Rate 44 (>60); Glucose 104 mg/dL (70-99); Potassium 4.7 mmol/L (3.3-5.1); Sodium Level 138 mmol/L (133-145)
[2024-09-19 18:16] LABS: Xtra Tube EP Lab EXTRA TUBE
[2024-09-21 05:07] LABS: Tacrolimus (FK506) 4.9 ng/mL (5.0-20.0)
== END 2024-10-08 23:59 ==
LOC: PAVLAB 10:00
PROVIDERS: PCP Nurse Practitioner Family
DX: D84.9 Immunodeficiency, unspecified (principal); Z94.2 Lung transplant status; Z51.81 Encounter for therapeutic drug level monitoring; Z79.899 Other long term (current) drug therapy; E78.5 Hyperlipidemia, unspecified; E55.9 Vitamin D deficiency, unspecified; R79.89 Other specified abnormal findings of blood chemistry
CPT/HCPCS: 36415; 80048; 80197; 85025

== ENCOUNTER → 2024-09-29 | Outpatient (CLI) | payer OTHER, SELFPAY | END | disposition home or self-care (01) | LOC: PSN 10:34 | PROVIDERS: PCP Nurse Practitioner Family; Referring Provider Internal Medicine; Visit Provider Internal Medicine | DX: Z94.2 Lung transplant status (principal); Z48.24 Encounter for aftercare following lung transplant | CPT/HCPCS: 94010 ==

== ENCOUNTER 2024-10-17 10:05 | Outpatient (RCR) | payer OTHER, SELFPAY ==
[2024-10-09 00:29] VITALS: BMI 31.6
[2024-10-17 10:25] LABS: Absolute Lymphocyte Count 0.95 X10^3/uL (0.83-4.51); Absolute Neutrophil Count 3.5 X10^3/uL (2.0-7.7); Basophil# 0.02 X10^3/uL; Basophil% 0.4 % (0-1); Eosinophil# 0.19 X10^3/uL; Eosinophils% 3.7 % (0-5); Hematocrit 40.5 % (40-54); Hemoglobin 12.7 g/dL (13.0-16.5); Lymphocyte # 0.95 X10^3/ul (0.83-4.51); Lymphocyte % 18.5 % (19-41); Mean Corp Hgb Conc 31.4 g/dL (32-36); Mean Corpuscular Hgb 29.2 pg (27.0-32.0); Mean Corpuscular Volume 93.1 fL (80-94); Mean Platelet Vol. 9.3 fl (6.2-12.0); Monocyte# 0.48 X10^3/uL; Monocyte% 9.3 % (0-10); NRBC Flagged by Analyzer 0 % (0-5); Neutrophil # 3.48 X10^3/uL (2.7-7.7); Neutrophil % 67.7 % (47-70); Platelet Count 157 K/mm3 (150-450); RBC Distribution Width CV 13.9 % (11.6-14.6); RBC Distribution Width SD 47.5 fl (35.1-43.9); Red Blood Count 4.35 M/mm3 (4.6-6.2); White Blood Count 5.1 K/mm3 (4.4-11.0)
[2024-10-17 11:11] LABS: AST(SGOT) 15 U/L (<=37); Alanine Aminotransfer ALT/SGPT 13 U/L (<=46); Albumin, Serum 4.4 g/dL (3.4-4.8); Alkaline Phosphatase 73 U/L (40-129); Anion Gap 11 (5-15); BUN 23 mg/dL (4-19); Bilirubin, Direct 0.13 mg/dL (0.00-0.30); Calcium,Total 10.3 mg/dL (7.6-11.0); Carbon Dioxide 24.6 mmol/L (21.0-32.0); Chloride 105 mmol/L (98-108); Creatinine, Serum 1.33 mg/dL (0.70-1.20); EST Glomerular Filtration Rate 55 (>60); Ferritin 121 ng/mL (37-417); Globulin 2.3 g/dL (2.2-4.2); Glucose 108 mg/dL (70-99); Iron 99 ug/dL (65-175); Iron Binding Capacity,Total 325 ug/dL (250-450); Iron Binding Capacity,Unsat 226 ug/dL (228-428); Magnesium 1.9 mg/dL (1.5-2.2); Phosphorus 2.8 mg/dL (2.7-4.5); Potassium 4.5 mmol/L (3.3-5.1); Protein, Total 6.6 g/dL (5.9-8.4); Sodium Level 140 mmol/L (133-145); Total Bilirubin 0.32 mg/dL (0.00-1.30); Vitamin D,25 Hydroxy 45.3 ng/mL (30-100)
[2024-10-17 11:38] LABS: Hemoglobin A1c 5.5 % (<=5.6)
[2024-10-20 15:08] LABS: Immunoglobulin A 157 mg/dL (61-437); Immunoglobulin G 383 mg/dL (603-1613); Immunoglobulin M 38 mg/dL (15-143)
== END 2024-11-07 23:59 ==
LOC: PAVLAB 10:05
PROVIDERS: PCP Nurse Practitioner Family
DX: D84.9 Immunodeficiency, unspecified (principal); Z94.2 Lung transplant status; Z51.81 Encounter for therapeutic drug level monitoring; Z79.899 Other long term (current) drug therapy; E78.5 Hyperlipidemia, unspecified; E55.9 Vitamin D deficiency, unspecified; R79.89 Other specified abnormal findings of blood chemistry
CPT/HCPCS: 36415; 80048; 80076; 80197; 82306; 82728; 82784; 83036; 83540; 83550; 83735; 84100; 85025; 87497

== ENCOUNTER → 2024-10-27 | Outpatient (CLI) | payer MEDICARE, BC, SELFPAY ==
--- NOTE | 2024-10-27 13:43 | ECHOD_ITS ---
Reason For Study Reason For Study: DYSPNEA/SOB Procedure This was a 2D Doppler, Color Flow transthoracic echocardiogram. Exam performed in department. Left Ventricle Normal LV size. The estimated ejection fraction is 65 %. No evidence for diastolic dysfunction. No regional wall motion abnormalities noted. Right Ventricle Normal RV size. Normal systolic function. Atria There is mild biatrial dilatation. No doppler evidence for ASD. Mitral Valve There is no mitral valve stenosis. Trivial mitral valve insufficiency. Tricuspid Valve There is no tricuspid stenosis. Trivial tricuspid valve insufficiency. Pulmonary artery systolic pressure is 30-35 mmHg. Aortic Valve Trisinus/trileaflet aortic valve. There is no aortic stenosis. No aortic valve insufficiency. Pulmonic Valve There is no pulmonic valvular stenosis. Trivial pulmonic valve insufficiency. Great Vessels Normal sized aortic root. Pericardium/Pleural No pericardial effusion. MMode/2D Measurements & Calculations LVIDd: 4.6 cm IVSd: 1.3 cm Ao root diam: 3.3 cm LVIDs: 3.0 cm LVPWd: 1.3 cm RVDd: 3.6 cm FS: 33.7 % LAV(MOD-bp): 72.9 ml LVAd ap4: 26.6 cm2 SV(MOD-sp4): 50.7 ml LAV(MOD-bp) Indexed: 32.9 ml/m2 LVLd ap4: 7.2 cm SI(MOD-sp4): 22.9 ml/m2 LAV(MOD-sp2): 71.0 ml EDV(MOD-sp4): 82.6 ml LAV(MOD-sp4): 73.3 ml EDV(sp4-el): 83.9 ml LVAs ap4: 15.1 cm2 LVLs ap4: 6.0 cm ESV(MOD-sp4): 31.8 ml ESV(sp4-el): 32.5 ml EF(MOD-sp4): 61.5 % EF(sp4-el): 61.3 % SV(sp4-el): 51.4 ml LA A4 area: 22.4 cm2 LA dimension(2D): 4.2 cm RA A4 area: 16.7 cm2 TAPSE: 1.9 cm Time Measurements MV dec time: 0.24 sec Doppler Measurements & Calculations MV E max valdemar: 67.4 cm/sec Lat Peak E' Valdemar: 8.0 cm/sec Med Peak E' Valdemar: 9.4 cm/sec MV A max valdemar: 67.8 cm/sec E/E' lat: 8.4 E/E' med: 7.1 MV E/A: 0.99 Ao V2 max: 101.6 cm/sec LV V1 max: 101.4 cm/sec PA V2 max: 95.2 cm/sec Ao max P.1 mmHg LV V1 max P.1 mmHg TR max valdemar: 274.5 cm/sec TR max P.1 mmHg ECHO/Echo Complete Interpretation Summary The estimated ejection fraction is 65 %. No evidence for diastolic dysfunction. There is mild biatrial dilatation. Trivial mitral valve insufficiency. Ordering Physician: Danis Avery Referring Physician: TYESHA PAIZ Performed By: Maritza Macias RDCS
== END | disposition home or self-care (01) ==
LOC: CVS 13:43
PROVIDERS: PCP Nurse Practitioner Family; Referring Provider Internal Medicine Cardiovascular Disease; Visit Provider Internal Medicine Cardiovascular Disease
DX: I25.10 Atherosclerotic heart disease of native coronary artery without angina pectoris (principal)
CPT/HCPCS: 93306

== ENCOUNTER → 2024-11-04 | Outpatient (CLI) | payer OTHER, SELFPAY | END | disposition home or self-care (01) | PROVIDERS: PCP Nurse Practitioner Family | DX: Z94.2 Lung transplant status (principal); D84.821 Immunodeficiency due to drugs; Z79.899 Other long term (current) drug therapy | CPT/HCPCS: 94010 ==

== ENCOUNTER 2024-11-14 09:38 | Outpatient (RCR) | payer OTHER, SELFPAY ==
[2024-11-14 09:57] LABS: Hematocrit 41.5 % (40-54); Hemoglobin 13.1 g/dL (13.0-16.5); Immature Granulocytes Count 0.030 X10^3/uL (0.0-0.0); Mean Corp Hgb Conc 31.6 g/dL (32-36); Mean Corpuscular Volume 93.7 fL (80-94); Mean Platelet Vol. 9.8 fl (6.2-12.0); NRBC Flagged by Analyzer 0 % (0-5); Platelet Count 171 K/mm3 (150-450); RBC Distribution Width CV 13.6 % (11.6-14.6); RBC Distribution Width SD 46.8 fl (35.1-43.9); Red Blood Count 4.43 M/mm3 (4.6-6.2); White Blood Count 6.0 K/mm3 (4.4-11.0)
[2024-11-14 10:40] LABS: Anion Gap 10 (5-15); BUN 30 mg/dL (4-19); BUN/Creat Ratio 22.3 RATIO (10-20); Calcium,Total 9.8 mg/dL (7.6-11.0); Carbon Dioxide 22.7 mmol/L (21.0-32.0); Chloride 106 mmol/L (98-108); Glucose 103 mg/dL (70-99); Potassium 4.6 mmol/L (3.3-5.1)
[2024-11-14 17:51] LABS: Xtra Tube EP Lab EXTRA TUBE
== END 2024-12-08 23:59 ==
LOC: PAVLAB 09:38
PROVIDERS: PCP Nurse Practitioner Family
DX: Z94.2 Lung transplant status; Z79.899 Other long term (current) drug therapy; D84.9 Immunodeficiency, unspecified; Z51.81 Encounter for therapeutic drug level monitoring; R79.9 Abnormal finding of blood chemistry, unspecified; E78.5 Hyperlipidemia, unspecified; E55.9 Vitamin D deficiency, unspecified; R79.89 Other specified abnormal findings of blood chemistry
CPT/HCPCS: 36415; 80048; 80197; 85025

== ENCOUNTER → 2024-12-01 | Outpatient (CLI) | payer OTHER, SELFPAY | END | disposition home or self-care (01) | LOC: PSN 10:54 | PROVIDERS: PCP Nurse Practitioner Family; Referring Provider Internal Medicine; Visit Provider Internal Medicine | DX: Z48.24 Encounter for aftercare following lung transplant (principal); Z94.2 Lung transplant status | CPT/HCPCS: 94010 ==

== ENCOUNTER 2024-12-12 09:39 | Outpatient (RCR) | payer OTHER, SELFPAY ==
[2024-12-12 10:01] LABS: Hematocrit 41.2 % (40-54); Hemoglobin 13.0 g/dL (13.0-16.5); Immature Granulocytes Count 0.030 X10^3/uL (0.0-0.0); Mean Corp Hgb Conc 31.6 g/dL (32-36); Mean Corpuscular Volume 92.0 fL (80-94); Mean Platelet Vol. 9.8 fl (6.2-12.0); NRBC Flagged by Analyzer 0 % (0-5); Platelet Count 163 K/mm3 (150-450); RBC Distribution Width CV 12.8 % (11.6-14.6); RBC Distribution Width SD 43.4 fl (35.1-43.9); Red Blood Count 4.48 M/mm3 (4.6-6.2); White Blood Count 6.8 K/mm3 (4.4-11.0)
[2024-12-12 10:19] LABS: Anion Gap 13 (5-15); BUN 27 mg/dL (4-19); BUN/Creat Ratio 17.7 RATIO (10-20); Calcium,Total 10.1 mg/dL (7.6-11.0); Carbon Dioxide 20.7 mmol/L (21.0-32.0); Chloride 104 mmol/L (98-108); Glucose 119 mg/dL (70-99); Potassium 4.6 mmol/L (3.3-5.1)
== END 2025-01-08 23:59 ==
LOC: PAVLAB 09:39
PROVIDERS: PCP Nurse Practitioner Family
DX: D84.9 Immunodeficiency, unspecified (principal); R79.9 Abnormal finding of blood chemistry, unspecified; Z94.2 Lung transplant status; Z51.81 Encounter for therapeutic drug level monitoring; Z79.899 Other long term (current) drug therapy; D80.1 Nonfamilial hypogammaglobulinemia; E78.5 Hyperlipidemia, unspecified
CPT/HCPCS: 36415; 80048; 80197; 85025

== ENCOUNTER → 2025-01-04 | Outpatient (CLI) | payer OTHER, SELFPAY | END | disposition home or self-care (01) | LOC: PSN 10:36 | PROVIDERS: PCP Nurse Practitioner Family; Referring Provider Internal Medicine; Visit Provider Internal Medicine | DX: Z48.24 Encounter for aftercare following lung transplant (principal); Z94.2 Lung transplant status | CPT/HCPCS: 94010 ==

== ENCOUNTER → 2025-02-02 | Outpatient (CLI) | payer OTHER, SELFPAY | END | disposition home or self-care (01) | LOC: PSN 10:38 | PROVIDERS: PCP Nurse Practitioner Family; Referring Provider Internal Medicine; Visit Provider Internal Medicine | DX: Z94.2 Lung transplant status (principal); Z48.24 Encounter for aftercare following lung transplant | CPT/HCPCS: 94010 ==

== ENCOUNTER 2025-02-06 08:51 | Outpatient (RCR) | payer OTHER, SELFPAY ==
[2025-01-10 11:03] LABS: Hematocrit 41.0 % (40-54); Hemoglobin 12.9 g/dL (13.0-16.5); Immature Granulocytes Count 0.090 X10^3/uL (0.0-0.0); Mean Corp Hgb Conc 31.5 g/dL (32-36); Mean Corpuscular Volume 91.9 fL (80-94); Mean Platelet Vol. 9.4 fl (6.2-12.0); NRBC Flagged by Analyzer 0 % (0-5); Platelet Count 149 K/mm3 (150-450); RBC Distribution Width CV 13.2 % (11.6-14.6); RBC Distribution Width SD 45.1 fl (35.1-43.9); Red Blood Count 4.46 M/mm3 (4.6-6.2); White Blood Count 7.4 K/mm3 (4.4-11.0)
[2025-01-10 11:35] LABS: AST(SGOT) 12 U/L (<=37); Alanine Aminotransfer ALT/SGPT 15 U/L (<=46); Albumin, Serum 4.3 g/dL (3.4-4.8); Alkaline Phosphatase 74 U/L (40-129); Anion Gap 10 (5-15); BUN 29 mg/dL (4-19); BUN/Creat Ratio 25.9 RATIO (10-20); Bilirubin, Direct 0.12 mg/dL (0.00-0.30); Calcium,Total 9.5 mg/dL (7.6-11.0); Carbon Dioxide 22.5 mmol/L (21.0-32.0); Chloride 109 mmol/L (98-108); Ferritin 83 ng/mL (37-417); Globulin 2.0 g/dL (2.2-4.2); Glucose 110 mg/dL (70-99); Iron 90 ug/dL (65-175); Iron Binding Capacity,Total 351 ug/dL (250-450); Iron Binding Capacity,Unsat 261 ug/dL (228-428); Magnesium 2.0 mg/dL (1.5-2.2); Potassium 4.6 mmol/L (3.3-5.1)
[2025-02-06 09:06] LABS: Hematocrit 42.4 % (40-54); Hemoglobin 13.1 g/dL (13.0-16.5); Immature Granulocytes Count 0.100 X10^3/uL (0.0-0.0); Mean Corp Hgb Conc 30.9 g/dL (32-36); Mean Corpuscular Volume 94.6 fL (80-94); Mean Platelet Vol. 9.3 fl (6.2-12.0); NRBC Flagged by Analyzer 0 % (0-5); Platelet Count 159 K/mm3 (150-450); RBC Distribution Width CV 13.7 % (11.6-14.6); RBC Distribution Width SD 47.4 fl (35.1-43.9); Red Blood Count 4.48 M/mm3 (4.6-6.2); White Blood Count 5.1 K/mm3 (4.4-11.0)
[2025-02-06 09:51] LABS: Anion Gap 11 (5-15); BUN 28 mg/dL (4-19); BUN/Creat Ratio 20.6 RATIO (10-20); Calcium,Total 9.5 mg/dL (7.6-11.0); Carbon Dioxide 24.3 mmol/L (21.0-32.0); Chloride 109 mmol/L (98-108); Glucose 124 mg/dL (70-99); Potassium 4.4 mmol/L (3.3-5.1)
== END 2025-02-07 23:59 ==
LOC: PAVLAB 08:51
PROVIDERS: PCP Nurse Practitioner Family
DX: D84.9 Immunodeficiency, unspecified (principal); R79.9 Abnormal finding of blood chemistry, unspecified; Z94.2 Lung transplant status; Z51.81 Encounter for therapeutic drug level monitoring; Z79.899 Other long term (current) drug therapy; E78.5 Hyperlipidemia, unspecified; E55.9 Vitamin D deficiency, unspecified; R79.89 Other specified abnormal findings of blood chemistry
CPT/HCPCS: 36415; 80048; 80076; 80197; 82728; 83540; 83550; 83735; 84100; 85025; 87497

== ENCOUNTER → 2025-03-02 | Outpatient (CLI) | payer OTHER, SELFPAY | END | disposition home or self-care (01) | LOC: PSN 10:33 | PROVIDERS: PCP Nurse Practitioner Family; Referring Provider Internal Medicine; Visit Provider Internal Medicine | DX: Z94.2 Lung transplant status (principal); Z48.24 Encounter for aftercare following lung transplant | CPT/HCPCS: 94010 ==

== ENCOUNTER 2025-03-06 10:27 | Outpatient (RCR) | payer OTHER, SELFPAY ==
[2025-03-06 10:41] LABS: Hematocrit 38.6 % (40-54); Hemoglobin 12.3 g/dL (13.0-16.5); Immature Granulocytes Count 0.210 X10^3/uL (0.0-0.0); Mean Corp Hgb Conc 31.9 g/dL (32-36); Mean Corpuscular Volume 92.3 fL (80-94); Mean Platelet Vol. 8.9 fl (6.2-12.0); NRBC Flagged by Analyzer 0 % (0-5); Platelet Count 144 K/mm3 (150-450); RBC Distribution Width CV 14.3 % (11.6-14.6); RBC Distribution Width SD 48.2 fl (35.1-43.9); Red Blood Count 4.18 M/mm3 (4.6-6.2); White Blood Count 5.0 K/mm3 (4.4-11.0)
[2025-03-06 11:19] LABS: Anion Gap 11 (5-15); BUN 27 mg/dL (4-19); BUN/Creat Ratio 19.5 RATIO (10-20); Calcium,Total 10.0 mg/dL (7.6-11.0); Carbon Dioxide 23.5 mmol/L (21.0-32.0); Chloride 106 mmol/L (98-108); Glucose 107 mg/dL (70-99); Potassium 4.4 mmol/L (3.3-5.1)
== END 2025-03-10 23:59 ==
LOC: PAVLAB 10:27
PROVIDERS: PCP Nurse Practitioner Family
DX: D84.9 Immunodeficiency, unspecified (principal); Z94.2 Lung transplant status; Z51.81 Encounter for therapeutic drug level monitoring; Z79.899 Other long term (current) drug therapy; E78.5 Hyperlipidemia, unspecified; E55.9 Vitamin D deficiency, unspecified; R79.89 Other specified abnormal findings of blood chemistry
CPT/HCPCS: 36415; 80048; 80197; 85025

== ENCOUNTER → 2025-03-30 | Outpatient (CLI) | payer OTHER, SELFPAY | END | disposition home or self-care (01) | LOC: PSN 10:36 | PROVIDERS: PCP Nurse Practitioner Family; Referring Provider Internal Medicine; Visit Provider Internal Medicine | DX: Z48.24 Encounter for aftercare following lung transplant (principal); Z94.2 Lung transplant status | CPT/HCPCS: 94010 ==

== ENCOUNTER 2025-04-03 10:05 | Outpatient (RCR) | payer OTHER, SELFPAY ==
[2025-04-03 10:26] LABS: Hematocrit 42.5 % (40-54); Hemoglobin 13.3 g/dL (13.0-16.5); Immature Granulocytes Count 0.030 X10^3/uL (0.0-0.0); Mean Corp Hgb Conc 31.3 g/dL (32-36); Mean Corpuscular Volume 93.0 fL (80-94); Mean Platelet Vol. 9.4 fl (6.2-12.0); NRBC Flagged by Analyzer 0 % (0-5); Platelet Count 155 K/mm3 (150-450); RBC Distribution Width CV 13.5 % (11.6-14.6); RBC Distribution Width SD 45.7 fl (35.1-43.9); Red Blood Count 4.57 M/mm3 (4.6-6.2); White Blood Count 6.7 K/mm3 (4.4-11.0)
[2025-04-03 11:10] LABS: AST(SGOT) 16 U/L (<=37); Alanine Aminotransfer ALT/SGPT 13 U/L (<=46); Albumin, Serum 4.2 g/dL (3.4-4.8); Alkaline Phosphatase 70 U/L (40-129); Anion Gap 13 (5-15); BUN 22 mg/dL (4-19); BUN/Creat Ratio 16.7 RATIO (10-20); Bilirubin, Direct 0.12 mg/dL (0.00-0.30); Calcium,Total 9.7 mg/dL (7.6-11.0); Carbon Dioxide 23.0 mmol/L (21.0-32.0); Chloride 106 mmol/L (98-108); Ferritin 99 ng/mL (37-417); Globulin 2.2 g/dL (2.2-4.2); Glucose 107 mg/dL (70-99); Iron 64 ug/dL (65-175); Iron Binding Capacity,Total 313 ug/dL (250-450); Iron Binding Capacity,Unsat 249 ug/dL (228-428); Magnesium 2.1 mg/dL (1.5-2.2); Potassium 4.5 mmol/L (3.3-5.1)
== END 2025-04-09 23:59 ==
LOC: PAVLAB 10:05
PROVIDERS: PCP Nurse Practitioner Family
DX: D84.9 Immunodeficiency, unspecified (principal); R79.9 Abnormal finding of blood chemistry, unspecified; Z94.2 Lung transplant status; Z51.81 Encounter for therapeutic drug level monitoring; Z79.899 Other long term (current) drug therapy; E78.5 Hyperlipidemia, unspecified; E55.9 Vitamin D deficiency, unspecified; R79.89 Other specified abnormal findings of blood chemistry
CPT/HCPCS: 36415; 80048; 80076; 80197; 82728; 83540; 83550; 83735; 84100; 85025; 87497

== ENCOUNTER 2025-05-01 10:27 | Outpatient (RCR) | payer OTHER, SELFPAY ==
[2025-05-01 10:43] LABS: Hematocrit 44.2 % (40-54); Hemoglobin 13.5 g/dL (13.0-16.5); Immature Granulocytes Count 0.030 X10^3/uL (0.0-0.0); Mean Corp Hgb Conc 30.5 g/dL (32-36); Mean Corpuscular Volume 94.0 fL (80-94); Mean Platelet Vol. 9.3 fl (6.2-12.0); NRBC Flagged by Analyzer 0 % (0-5); Platelet Count 149 K/mm3 (150-450); RBC Distribution Width CV 12.7 % (11.6-14.6); RBC Distribution Width SD 44.0 fl (35.1-43.9); Red Blood Count 4.70 M/mm3 (4.6-6.2); White Blood Count 6.9 K/mm3 (4.4-11.0)
[2025-05-01 11:18] LABS: Anion Gap 10 (5-15); BUN 24 mg/dL (4-19); BUN/Creat Ratio 17.7 RATIO (10-20); Calcium,Total 10.1 mg/dL (7.6-11.0); Carbon Dioxide 24.4 mmol/L (21.0-32.0); Chloride 106 mmol/L (98-108); Glucose 112 mg/dL (70-99); Potassium 4.7 mmol/L (3.3-5.1)
== END 2025-05-10 23:59 ==
LOC: PAVLAB 10:27
PROVIDERS: PCP Nurse Practitioner Family
DX: Z94.2 Lung transplant status (principal); Z51.81 Encounter for therapeutic drug level monitoring; Z79.899 Other long term (current) drug therapy; R79.9 Abnormal finding of blood chemistry, unspecified; E78.5 Hyperlipidemia, unspecified; D84.9 Immunodeficiency, unspecified; E55.9 Vitamin D deficiency, unspecified; R79.89 Other specified abnormal findings of blood chemistry
CPT/HCPCS: 36415; 80048; 80197; 85025